=== PATIENT | male | born 1945 | race Caucasian/White ===

== ENCOUNTER 2019-04-17 10:26 | Emergency (ER) | payer MEDICARE ==
[~2019-04-17] VITALS: Ht 167.6 cm; Wt 101.2 kg
[~2019-04-17 10:26] MED LIST: ASPIR 8181 MG PO; ATORVASTATIN CA20 MG PO; CARBIDOPA-LEVO1 EACH PO; CITALOPRAM HBR20 MG PO; FUROSEMIDE40 MG PO; GLIMEPIRIDE2 MG PO; GLUCOPHAGE1000 MG PO; ISOSORBIDE MON120 MG PO; ISOSORBIDE MONO30 M1 PO; ISOSORBIDE MONO60 MG PO; LISINOPRIL PO; LISINOPRIL-HCT1 EACH PO; LYRICA100 MG PO; METOPROLOL SUCC50 MG PO; METOPROLOL TART25 MG PO; MOBIC7.5 MG PO; NEURONTIN100 MG PO; NITROGLYCERIN0.4 MG SL; NOVOLIN 70100 UNITS/ SQ; PLAVIX75 MG PO; RAMIPRIL10 MG PO; RANEXA500 MG PO; TRAZODONE HCL50 MG PO
--- OUTSIDE RECORDS SUMMARY | 2019-04-17 10:29 | XMS REPORT | Clinical Summary ---
Author Author [facility] Address Unknown Phone Unavailable Care Team Providers Care Medical Van Driver Name Role Phone Pcp, No PCP Unavailable Allergies No Known Allergies Medications End Date Status Medication Sig Dispensed Refills Start Date Active aspirin 81 MG chewable Take 81 mg by 0 tablet mouth daily. Active gabapentin (NEURONTIN) Take 600 mg 0 600 MG tablet by mouth 2 (two) times daily. Active sertraline (ZOLOFT) 25 MG Take 25 mg by 0 tablet mouth daily. Active atorvastatin (LIPITOR) 40 Take 40 mg by 0 MG tablet mouth daily. Active clopidogrel (PLAVIX) 75 Take 75 mg by 0 mg tablet mouth daily. Active furosemide (LASIX) 20 MG Take 20 mg by 0 tablet mouth 2 (two) times daily. Active amLODIPine (NORVASC) 5 MG Take 5 mg by 0 tablet mouth daily. Active metoprolol (TOPROL-XL) 50 Take 50 mg by 0 MG 24 hr tablet mouth 2 (two) times daily. Active isosorbide mononitrate Take 20 mg by 0 (ISMO,MONOKET) 20 MG mouth daily . tablet Active ranolazine (RANEXA) 500 Take 1,000 mg 0 MG 12 hr tablet by mouth 2 (two) times daily. Active glimepiride (AMARYL) 4 MG Take 4 mg by 0 tablet mouth every morning before breakfast. Active insulin 70/30, insulin Inject 0 NPH-insulin regular, subcutaneousl (HUMULIN 70/30) 100 y 2 (two) unit/mL (70-30) injection times daily before meals Takes 65 units in the am and 45 units in the pm . Active nitroglycerin (NITROSTAT) Place 0.4 mg 0 0.4 MG SL tablet under the tongue every 5 (five) minutes as needed for Chest pain Put 1 pill under tongue every 5min as needed for chest pain.No more than 3 doses in 15min.Call 911 if pain is unrelieved 5min after 1st dose . 09/30/2018 Discontinued metoprolol (TOPROL-XL) 25 Take 25 mg by 0 MG 24 hr tablet mouth daily. Active Problems Problem Noted Date Aortic stenosis 09/30/2018 CAD (coronary artery disease) 06/03/2018 Encounters Care Team Description Date Type Specialty Bobby Peguero MD L CATH & PCI 09/30/2018 Surgery Bobby Peguero MD Nonrheumatic aortic valve stenosis 09/30/2018 Hospital Encounter Bobby Peguero MD L CATH & CORONARY ANGIOS 06/03/2018 Surgery Bobby Peguero MD Coronary artery disease without angina pectoris, unspecified vessel or lesion type, unspecified whether [place] or transplanted heart 06/03/2018 Hospital Cardiology - Encounter 06/04/2018 06/03/2018 Orders Only General Internal Medicine after 04/16/2018 Social History Date Tobacco Use Types Packs/Day Years Used Never Smoker Smokeless Tobacco: Never Used Alcohol Use Drinks/Week oz/Week Comments No Sex Assigned at Date Recorded Not on file Industry Job Start Date Occupation Not on file Not on file Not on file Travel End Travel History Travel Start No recent travel history available. Last Filed Vital Signs Time Taken Vital Sign Reading 09/30/2018 3:30 PM TRAVEL REGISTERED NURSE PACU Blood Pressure 152/67 09/30/2018 3:30 PM TRAVEL REGISTERED NURSE PACU Pulse 67 09/30/2018 7:12 AM TRAVEL REGISTERED NURSE PACU Temperature 36.7 C (98.1 F) 09/30/2018 3:30 PM TRAVEL REGISTERED NURSE PACU Respiratory Rate 18 09/30/2018 1:00 PM TRAVEL REGISTERED NURSE PACU Oxygen Saturation 97% - Inhaled Oxygen - Concentration 09/30/2018 7:12 AM TRAVEL REGISTERED NURSE PACU Weight 104.5 kg (230 lb 6.4 oz) 09/30/2018 7:12 AM TRAVEL REGISTERED NURSE PACU Height 167.6 cm (5' 6") 09/30/2018 7:12 AM TRAVEL REGISTERED NURSE PACU Body Mass Index 37.19 Plan of Treatment Not on file Implants Device Identifier Shelf Expiration Date Model / Serial / Lot Implanted Type Area Manufactur er [id number] 02/20/2019 [id number] / / [id number] Device Clsr Angio-Seal Vip 6fr Cardiovasc N/A: Groin [employer] [id number] - [id number] ular MED:CARDIA Implanted: Qty: 1 on 06/03/2018 by Bobby Santos MD 06/22/2019 [id number] / [id number] / [id number] Device Clsr Angio-Seal Vip 6fr Cardiovasc [employer] [id number] - [id number] yanna MED:CARDIA Implanted: Qty: 1 on 09/30/2018 by Bobby Santos MD [id number] 04/05/2019 [id number] / / [id number] Promus Premier Stents-Cor N/A: Heart [place] Implanted: Qty: 1 on 06/03/2018 by Bobby Robert MD Procedures Comments Procedure Name Priority Date/Time Associated Diagnosis VASCULAR DIAGRAM -SCAN 01/07/2019 10:01 AM CDT VASCULAR DIAGRAM -SCAN 01/02/2019 5:11 AM CDT VASCULAR DIAGRAM -SCAN 11/13/2018 4:40 PM TRAVEL REGISTERED NURSE PACU REPORT OF PROCEDURE - 10/20/2018 ENDOSCOPY SCAN 10:00 AM TRAVEL REGISTERED NURSE PACU CARDIAC CATH REPORT - 10/20/2018 SCAN 10:00 AM TRAVEL REGISTERED NURSE PACU L CATH & PCI 09/30/2018 Angina pectoris (HCC) 1:01 PM TRAVEL REGISTERED NURSE PACU Case Notes (3) CASE POP6 mGy 2341. ECG 12-LEAD STAT 09/30/2018 8:44 AM TRAVEL REGISTERED NURSE PACU CBC W/PLT COUNT & AUTO STAT 09/30/2018 DIFFERENTIAL 8:20 AM TRAVEL REGISTERED NURSE PACU CBC W/PLT COUNT & AUTO STAT 09/30/2018 DIFFERENTIAL 8:20 AM TRAVEL REGISTERED NURSE PACU BASIC METABOLIC PANEL (7) STAT 09/30/2018 8:20 AM TRAVEL REGISTERED NURSE PACU RHYTHM STRIP - SCAN 06/05/2018 1:41 PM CDT REPORT OF PROCEDURE - 06/05/2018 ENDOSCOPY SCAN 1:41 PM CDT CARDIAC CATH REPORT - 06/05/2018 SCAN 1:41 PM CDT POCT-GLUCOSE METER Routine 06/04/2018 8:30 AM CDT CBC (HEMOGRAM ONLY) Routine 06/04/2018 4:14 AM CDT BASIC METABOLIC PANEL (7) Routine 06/04/2018 4:14 AM CDT POCT-GLUCOSE METER Routine 06/03/2018 10:18 PM CDT POCT-GLUCOSE METER Routine 06/03/2018 12:29 PM CDT POCT-ACT Routine 06/03/2018 10:16 AM CDT L CATH & CORONARY ANGIOS 06/03/2018 Angina pectoris (HCC) 9:32 AM CDT Coronary artery disease, angina presence unspecified, unspecified vessel or lesion type, unspecified whether [place] or transplanted heart Case Notes (2) CASE POP6 ECG 12-LEAD Routine 06/03/2018 7:33 AM CDT Procedure Note - Interface, External Ris In - 06/03/2018 7:47 AM CDT Ventricula r Rate 52 BPM Atrial Rate 52 BPM P-R Interval 198 ms QRS Duration 106 ms Q-T Interval 474 ms QTC Calculatio n(Bazett) 440 ms P [place] 53 degrees R [place] 34 degrees T [place] 51 degrees Sinus bradycardi a with marked sinus arrhythmia Otherwise normal ECG When compared with ECG of 1 08:37, Previous ECG has undetermin ed rhythm, needs review Criteria for Inferior infarct are no longer Present ECG 12-LEAD STAT 06/03/2018 7:33 AM CDT CBC W/PLT COUNT & AUTO STAT 06/03/2018 DIFFERENTIAL 6:46 AM CDT CBC W/PLT COUNT & AUTO STAT 06/03/2018 DIFFERENTIAL 6:46 AM CDT BASIC METABOLIC PANEL (7) STAT 06/03/2018 6:46 AM CDT after 04/16/2018 Results * VASCULAR DIAGRAM -SCAN (01/07/2019 10:01 AM CDT) Only the most recent of 3 results within the time period is included. Narrative Performed At * EKG-SCANNED (10/20/2018 10:00 AM TRAVEL REGISTERED NURSE PACU) Only the most recent of 2 results within the time period is included. Narrative Performed At * CARDIAC CATH REPORT - SCAN (10/20/2018 10:00 AM TRAVEL REGISTERED NURSE PACU) Narrative Performed At * ECG 12 lead (09/30/2018 8:44 AM TRAVEL REGISTERED NURSE PACU) Only the most recent of 2 results within the time period is included. Specimen Narrative Performed At Ventricular Rate 54 BPM GE MUSE Atrial Rate 54 BPM P-R Interval 194 ms QRS Duration 112 ms Q-T Interval 486 ms QTC Calculation(Bazett) 460 ms P [place] 58 degrees R [place] 40 degrees T [place] 45 degrees Sinus bradycardia Left atrial enlargement Prolonged QT Abnormal ECG No previous ECGs available Confirmed by MD Glaser Roberto ([id number]) on 09/30/2018 1:10:00 PM Procedure Note Interface, External Ris In - 09/30/2018 1:10 PM TRAVEL REGISTERED NURSE PACU Ventricular Rate 54 BPM Atrial Rate 54 BPM P-R Interval 194 ms QRS Duration 112 ms Q-T Interval 486 ms QTC Calculation(Bazett) 460 ms P [place] 58 degrees R [place] 40 degrees T [place] 45 degrees Sinus bradycardia Left atrial enlargement Prolonged QT Abnormal ECG No previous ECGs available Confirmed by MD Glaser Roberto ([id number]) on 09/30/2018 1:10:00 PM Performing Organization Address City/State/Zipcode Phone Number KRISSY MULLEN * CBC with platelet count + automated diff (09/30/2018 8:20 AM TRAVEL REGISTERED NURSE PACU) Only the most recent of 2 results within the time period is included. WBC 8.3 3.5 - 10.5 K/L [facility] RBC 4.06 (L) 4.63 - 6.08 M/L [facility] Hemoglobin 12.4 (L) 13.7 - 17.5 GM/DL [facility] Hematocrit 38.7 (L) 40.1 - 51.0 % [facility] MCV 95.3 (H) 79.0 - 92.[address] [facility] MCH 30.5 25.7 - 32.[address] [facility] MCHC 32.0 (L) 32.3 - 36.5 GM/DL [facility] RDW 12.6 11.6 - 14.4 % [facility] Platelets 181 150 - 450 K/CU MM [facility] MPV 11.4 9.4 - 12.[address] [facility] nRBC 0 0 - 0 /[address] [facility] % Neutros 70 % [facility] % Lymphs 21 % [facility] % Monos 7 % [facility] % Eos 2 % [facility] % Baso 1 % [facility] # Neutros 5.80 (H) 1.78 - 5.38 K/L [facility] # Lymphs 1.71 1.32 - 3.57 K/L [facility] # Monos 0.55 0.30 - 0.82 K/L [facility] # Eos 0.20 0.04 - 0.54 K/L [facility] # Baso 0.04 0.01 - 0.08 K/L [facility] Immature 0 0 - 1 % [facility] Granulocytes-[facility] Specimen Blood Performing Organization Address City/State/Zipcode Phone Number [facility] [address] [place] [address] MEDICAL CENTER * Basic metabolic panel (09/30/2018 8:20 AM TRAVEL REGISTERED NURSE PACU) Only the most recent of 3 results within the time period is included. Sodium 143 136 - 145 meq/L [facility] Potassium 4.2 3.5 - 5.1 meq/L [facility] Chloride 105 98 - 107 meq/L [facility] CO2 30 (H) 22 - 29 meq/L [facility] BUN 18 7 - 21 mg/dL [facility] Creatinine 0.97 0.57 - 1.25 mg/dL [facility] Glucose 85 70 - 105 mg/dL [facility] Calcium 9.3 8.4 - 10.2 mg/dL [facility] EGFR 76Comment: ESTIMATED GFR IS mL/min/1.73 sq m [facility] NOT ACCURATE CREATININE [facility] CLEARANCE IN PREDICTING GLOMERULAR FILTRATION RATE. ESTIMATED GFR IS NOT APPLICABLE FOR DIALYSIS PATIENTS. Specimen Blood Performing Organization Address City/[facility] Phone Number [address] [address] [facility] * RHYTHM STRIP - SCAN (06/05/2018 1:41 PM CDT) Narrative Performed At * CARDIAC CATH REPORT - SCAN (06/05/2018 1:41 PM CDT) Narrative Performed At * POC-Glucose meter (06/04/2018 8:30 AM CDT) Only the most recent of 3 results within the time period is included. POC-Glucose Meter 184 (H)Comment: TESTED AT 70 - 110 mg/dL [address] [address] Specimen Blood Performing Organization Address City/[facility] Phone Number [address] [address] [facility] * CBC (Hemogram only) (06/04/2018 4:14 AM CDT) WBC 8.5 3.5 - 10.5 K/L [facility] RBC 3.69 (L) 4.63 - 6.08 M/L [facility] Hemoglobin 11.1 (L) 13.7 - 17.5 GM/DL [facility] Hematocrit 35.4 (L) 40.1 - 51.0 % [facility] MCV 95.9 (H) 79.0 - 92.[address] [facility] MCH 30.1 25.7 - 32.[address] [facility] MCHC 31.4 (L) 32.3 - 36.5 GM/DL [facility] RDW 12.9 11.6 - 14.4 % [facility] Platelets 156 150 - 450 K/CU MM [facility] MPV 11.1 9.4 - 12.[address] [facility] nRBC 0 0 - 0 /[address] [facility] Specimen Blood Performing Organization Address City/[facility] Cent[facility]ode Phone Number [facility] [address] [place] [address] [phone] [facility] * POC ACTIVATED CLOTTING TIME (06/03/2018 10:16 AM CDT) Activated Clotting Time 401Comment: TESTED AT [facility] sec [address] [address] [facility] Specimen Blood Performing Organization Address City/[facility] Centercode Phone Number [facility] [address] [place] [address] [phone] [facility] after 04/16/2018 Insurance Payer Benefit Subscriber ID Type Phone Address Plan / Group AETNA - MEDICARE MGD CARE AETNA xxxxxxxx [facility] [phone] [address] [place] [address] [facility] POS Advance Directives For more information, please contact: [address] [address] Date Inactivated Comments Code Status Date Activated Full Code 09/30/2018 1:01 PM This code status was determined by: Patient 09/30/2018 1:01 PM Full Code 09/30/2018 7:26 AM This code status was determined by: Patient 06/03/2018 12:20 PM Full Code 06/03/2018 6:33 AM This code status was determined by: Patient
--- OUTSIDE RECORDS SUMMARY | 2019-04-17 10:32 | XMS REPORT ---
Author Author Justine Art [facility] eClinical[employer] Address Unknown Phone Unavailable Care Team Providers Care Manager Community Name Role Phone Justine Art CP Unavailable Allergies, Adverse Reactions, Alerts Substance Reaction Event Type N.K.D.A. 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 Active Assessment Poor memory R41.3 Active Problem Essential hypertension I10 Active Assessment Depression, unspecified depression type F32.9 Active Problem Depression, unspecified depression type F32.9 Active Problem Microalbuminuria R80.9 Active Problem Type 2 diabetes mellitus with diabetic peripheral angiopathy without gangrene E11.51 Active Problem Coronary artery disease involving [place] coronary artery of [place] heart with angina pectoris I25.119 Active Problem BMI 37.0-37.9, adult Z68.37 Active Assessment Essential hypertension I10 Active Assessment 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 Problem 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.29 Active Assessment S/P coronary artery stent placement Z95.5 Active Problem Sciatica, right M54.31 Active Problem Constipation, unspecified constipation type K59.00 Active Problem Tremor R25.1 Active Problem Poor memory R41.3 Active Problem 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 [id number] 145 Active TAKE 1 CAPSULE BY MOUTH EVERY DAY ProAir HFA [facility] [address]-83 108 (90 Base) MCG/ACT Inhalation every 4 hrs prn February 22, 2016 Active 2 puffs as needed Metformin HCl [facility] 78870189047 1000 MG Orally Twice a day Active 1 tablet with meals Lisinopril [facility] [address]-53 20 MG Orally Once a day December 31, 2015 Active 1 tablet Nitroglycerin [facility] [address]-73 0.4 MG Sublingual once a day prn Active 1 tablet ProAir HFA [facility] [address]-07 108 (90 Base) MCG/ACT Inhalation every 4 hrs March 21, 2017 Active 2 puffs as needed Toprol XL [facility] [address]-06 50 MG Orally Once a day November 27, 2016 Active 1 tablet Metoprolol Succinate ER [facility] [address]-76 25 MG Orally Once a day Active 1 tablet Atorvastatin Calcium [facility] [address]-73 40 mg Orally Once a day Active 1 tablet Ranexa [facility] [address]-88 500 MG Orally Twice a day Active 1 tablet Clopidogrel Bisulfate [facility] [address]-02 75 mg Orally Once a day Active 1 tablet Isosorbide Mononitrate [facility] [address]-30 120 MG Orally Once a day Active 1 tablet Aspir-81 [facility] [address]-98 81 MG Orally Once a day Active 1 tablet Zoloft [facility] [address]-17 25 MG Orally Once a day March 21, 2017 Active 1 tablet Furosemide [facility] [address]-79 40 MG Orally Once a day Active 1 tablet Carbidopa-Levodopa ER [facility] [address]-47 25-100 MG Orally twice a day (bid) Active 1 tablet Novolin 70/[address] [facility] [address]-67 (70-30) 100 UNIT/ML Subcutaneous 65 units am and 45 units pm December 23, 2015 Active as directed Glimepiride [facility] [address]-50 2 MG Orally Once a day Aug 27, 2016 Active 1 tablet with breakfast or the first main meal of the day Gabapentin [facility] [id number] 300 MG Active 3 CAPSULE THREE TIMES A DAY ORALLY 30 DAYS Vital Signs Date/Time: May 03, 2017 BMI 36.47 Index Weight 226 lbs Height 66 in Cardiac Monitoring Heart Rate 70 /min Blood Pressure Diastolic 58 mm Hg Blood Pressure Systolic 114 mm Hg Results No Known Results Summary Purpose eClinicalWorks Submission
--- OUTSIDE RECORDS SUMMARY | 2019-04-17 10:32 | XMS REPORT ---
Author Author Katt Pizarro [facility] eClinicalWorks Address Unknown Phone Unavailable Care Team Providers Care Catalyst Manufacturing Operator Name Role Phone Katt Pizarro Unavailable Allergies, Adverse Reactions, Alerts Substance Reaction Event Type N.K.D.A. 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 Active Assessment SOB (shortness of breath) R06.02 Active Problem Essential hypertension I10 Active Assessment Acute pancreatitis without infection or necrosis, unspecified pancreatitis type K85.90 Active Problem Depression, unspecified depression type F32.9 Active Problem Microalbuminuria R80.9 Active Problem Type 2 diabetes mellitus with diabetic peripheral angiopathy without gangrene E11.51 Active Problem Coronary artery disease involving [place] coronary artery of [place] heart with angina pectoris I25.119 Active Problem BMI 37.0-37.9, adult Z68.37 Active Assessment Hospital discharge follow-up Z09 Active Assessment Depression, unspecified depression type F32.9 Active Problem 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.29 Active Assessment Acute kidney injury N17.9 Active Problem Sciatica, right M54.31 Active Problem Constipation, unspecified constipation type K59.00 Active Problem Tremor R25.1 Active Problem Poor memory R41.3 Active Problem 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 Problem PVD (peripheral vascular disease) I73.9 Active Problem History of [place] (myocardial infarction) I25.2 Active Problem Mixed hyperlipidemia E78.2 Active Problem S/P coronary artery stent placement Z95.5 Active Problem 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 Problem Non morbid obesity due to excess calories E66.09 Active Problem BMI 36.0-36.9,adult Z68.36 Active Medications Medication Code System Code Instructions Start Date End Date Status Dosage Novolin 70/30 [facility] [address]-12 (70-30) 100 UNIT/ML Subcutaneous 65 units am and 45 units pm December 23, 2015 Active as directed Metformin HCl ND 35085716058 1000 MG Orally Twice a day Active 1 tablet with meals Isosorbide Mononitrate [facility] [address]-86 120 MG Orally Once a day Active 1 tablet Carbidopa-Levodopa ER [facility] [address]-83 25-100 MG Orally twice a day (bid) Active 1 tablet Lisinopril [facility] [address]-71 20 MG Orally Once a day December 31, 2015 Active 1 tablet Glimepiride [facility] [address]-54 2 MG Orally Once a day Aug 27, 2016 Active 1 tablet with breakfast or the first main meal of the day ProAir HFA [facility] [address]-24 108 (90 Base) MCG/ACT Inhalation every 4 hrs March 21, 2017 Active 2 puffs as needed Furosemide [facility] [address]-69 40 MG Orally Once a day Active 1 tablet Linzess [facility] 07565336442 145 Active TAKE 1 CAPSULE BY MOUTH EVERY DAY Ranexa [facility] [address]-14 500 MG Orally Twice a day Active 1 tablet Atorvastatin Calcium [facility] [address]-58 40 mg Orally Once a day Active 1 tablet Nitroglycerin [facility] [address]-95 0.4 MG Sublingual once a day prn Active 1 tablet Aspir-81 [facility] [address]-17 81 MG Orally Once a day Active 1 tablet ProAir HFA [facility] [address]-83 108 (90 Base) MCG/ACT Inhalation every 4 hrs prn February 22, 2016 Active 2 puffs as needed Toprol XL [facility] [address]-27 50 MG Orally Once a day November 27, 2016 Active 1 tablet Zoloft [facility] [address]-58 25 MG Orally Once a day March 21, 2017 Active 1 tablet Metoprolol Succinate ER [facility] [address]-36 25 MG Orally Once a day Active 1 tablet Clopidogrel Bisulfate [facility] [address]-15 75 mg Orally Once a day Active 1 tablet Gabapentin [facility] 05011111466 300 MG Active 3 CAPSULE THREE TIMES A DAY ORALLY 30 DAYS Vital Signs Date/Time: March 21, 2017 BMI 36.80 Index Weight 228 lbs Height 66 in Cardiac Monitoring Heart Rate 68 /min Blood Pressure Diastolic 72 mm Hg Blood Pressure Systolic 134 mm Hg Results Name Result Date Reference Range Unit Abnormality Flag COMPREHENSIVE METABOLIC PANEL ----CALCIUM 8.9 [id number] 8.6-10.3 mg/dL N ----CARBON DIOXIDE 31 94298790 20-31 mmol/L N ----ALT 12 77313337 9-46 U/L N ----CREATININE 1.04 [id number] 0.70-1.18 mg/dL N ----AST 14 [id number] 10-35 U/L N ----eGFR NON-AFR. AZERBAIJANI 72 [id number] > OR=60 mL/min/1.73m2 N ----ALKALINE PHOSPHATASE 77 36203453 40-115 U/L N ----eGFR 84 [id number] > OR=60 mL/min/1.73m2 N ----BILIRUBIN, TOTAL 0.3 12781635 0.2-1.2 mg/dL N ----BUN/CREATININE RATIO NOT APPLICABLE 23601572 6-22 (calc) ----ALBUMIN/GLOBULIN RATIO 1.4 75980300 1.0-2.5 (calc) N ----SODIUM 145 05051395 135-146 mmol/L N ----GLOBULIN 2.7 56992907 1.9-3.7 g/dL (calc) N ----POTASSIUM 4.5 42106677 3.5-5.3 mmol/L N ----GLUCOSE 70 56567853 65-99 mg/dL N ----CHLORIDE 106 25710281 98-110 mmol/L N ----ALBUMIN 3.8 87702566 3.6-5.1 g/dL N ----UREA NITROGEN (BUN) 17 94570220 7-25 mg/dL N ----PROTEIN, TOTAL 6.5 54601884 6.1-8.1 g/dL N CBC (INCLUDES DIFF/PLT) ----ABSOLUTE BASOPHILS 45 75625431 0-200 cells/uL N ----ABSOLUTE EOSINOPHILS 107 37366052 15-500 cells/uL N ----LYMPHOCYTES 20.1 80227665 % N ----NEUTROPHILS 73.8 38475378 % N ----PLATELET COUNT 188 61934541 140-400 Thousand/uL N ----EOSINOPHILS 1.2 48782381 % N ----RDW 13.9 37232788 11.0-15.0 % N ----MONOCYTES 4.4 62140582 % N ----MCHC 33.8 89523333 32.0-36.0 g/dL N ----MCH 31.0 09958518 27.0-33.0 pg N ----MCV 91.6 28492724 80.0-100.0 fL N ----ABSOLUTE NEUTROPHILS 6568 02460931 9825-2691 cells/uL N ----MPV 10.4 72489500 7.5-12.5 fL N ----ABSOLUTE MONOCYTES 392 80975858 200-950 cells/uL N ----ABSOLUTE LYMPHOCYTES 1789 95494176 850-3900 cells/uL N ----BASOPHILS 0.5 20130447 % N ----WHITE BLOOD CELL COUNT 8.9 10558435 3.8-10.8 Thousand/uL N ----RED BLOOD CELL COUNT 3.37 84511332 4.20-5.80 Million/uL L ----HEMOGLOBIN 10.5 55030573 13.2-17.1 g/dL L ----HEMATOCRIT 30.9 30146612 38.5-50.0 % L LIPASE ----LIPASE 60 75521737 7-60 U/L N Summary Purpose eClinicalWorks Submission
--- OUTSIDE RECORDS SUMMARY | 2019-04-17 10:32 | XMS REPORT ---
Author Author Meenakshi Chaidez Organization eClinicalWorks Address Unknown Phone Unavailable Care Team Providers Care Chemic Mangler Name Role Phone Meenakshi Chaidez CP Unavailable Allergies No Known Allergies Problems Problem Type Condition Code Onset Dates Condition Status Problem Depression, unspecified depression type F32.9 Active Problem Microalbuminuria R80.9 Active Problem Type 2 diabetes mellitus with diabetic peripheral angiopathy without gangrene E11.51 Active Problem Coronary artery disease involving [place] coronary artery of [place] heart with angina pectoris I25.119 Active Problem BMI 37.0-37.9, adult Z68.37 Active Problem 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.29 Active Problem Sciatica, right M54.31 Active Problem Constipation, unspecified constipation type K59.00 Active Problem Tremor R25.1 Active Problem Poor memory R41.3 Active Problem 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 Problem PVD (peripheral vascular disease) I73.9 Active Problem History of [place] (myocardial infarction) I25.2 Active Problem Mixed hyperlipidemia E78.2 Active Problem S/P coronary artery stent placement Z95.5 Active Problem 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 Problem Non morbid obesity due to excess calories E66.09 Active Problem 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
--- OUTSIDE RECORDS SUMMARY | 2019-04-17 10:32 | XMS REPORT ---
Author Author Justine Art [facility] eClinicalWorks Address Unknown Phone Unavailable Care Team Providers Care Jig Builder Helper Name Role Phone Justine Art CP Unavailable Allergies, Adverse Reactions, Alerts Substance Reaction Event Type N.K.D.A. Info Not Available Non Drug Allergy Problems Problem Type Condition Code Onset Dates Condition Status Assessment CAD (coronary artery disease) I25.10 Active Assessment Depression, unspecified depression type F32.9 Active Assessment History of recent fall Z91.81 Active Assessment Risk for falls Z91.81 Active Assessment Tremor R25.1 Active Assessment Parkinsons G20 Active Assessment Cerebral palsy, unspecified type G80.9 Active Assessment Mixed hyperlipidemia E78.2 Active Assessment 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 Problem Depression, unspecified depression type F32.9 Active Assessment Essential hypertension I10 Active Problem Constipation, unspecified constipation type K59.00 Active Problem History of [place] (myocardial infarction) I25.2 Active Problem Sciatica, right M54.31 Active Problem Tremor R25.1 Active Problem BMI 37.0-37.9, adult Z68.37 Active Problem CAD (coronary artery disease) I25.10 Active Problem Risk for falls Z91.81 Active Problem Essential hypertension I10 Active Problem S/P coronary artery stent placement Z95.5 Active Problem Parkinsons G20 Active Problem 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 Problem 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 Active Problem 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.29 Active Problem Cerebral palsy, unspecified type G80.9 Active Problem Poor memory R41.3 Active Problem 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 Active Problem Mixed hyperlipidemia E78.2 Active Problem BMI 36.0-36.9,adult Z68.36 Active Problem PVD (peripheral vascular disease) I73.9 Active Problem Type 2 diabetes mellitus with diabetic peripheral angiopathy without gangrene E11.51 Active Problem Microalbuminuria R80.9 Active Problem 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 Problem Non morbid obesity due to excess calories E66.09 Active Medications Medication Code System Code Instructions Start Date End Date Status Dosage Toprol XL [facility] 18708988985 50 mg Orally Once in am November 27, 2016 Active [address] [facility] 04772116496 40 MG Orally Once a day Active 1 tablet ProAir HFA [facility] 89315265855 108 (90 Base) MCG/ACT Inhalation every 4 hrs March 21, 2017 Active 2 puffs as needed Ranexa [facility] 53239955696 500 MG Orally Twice a day Active 1 tablet Aspir-[address] [facility] 20432403830 81 MG Orally Once a day Active 1 tablet Metformin HCl [facility] 44051686948 1000 MG Active 1 TABLET WITH MEALS TWICE A DAY ORALLY 90 DAYS Clopidogrel Bisulfate [facility] 66480306701 75 mg Orally Once a day Active [address] [facility] 59706984391 300 MG Active 3 CAPSULE THREE TIMES A DAY ORALLY 30 DAYS ProAir HFA [facility] 99760007949 108 (90 Base) MCG/ACT Inhalation every 4 hrs prn February 22, 2016 Active 2 puffs as needed Glimepiride [facility] 01472341914 2 MG Active 1 TABLET WITH BREAKFAST OR THE FIRST MAIN MEAL OF THE DAY ONCE A DAY ORALLY [address] [facility] 50423607670 25 MG Orally Once a day March 21, 2017 Active 1 tablet Novolin 70/[address] [facility] 77246631235 (70-30) 100 UNIT/ML Subcutaneous 65 units am and 45 units pm December 23, 2015 Active as directed Metoprolol Succinate ER [facility] 25427714338 25 MG Orally qhs Active 1 tablet Carbidopa-Levodopa ER [facility] 44134053991 25-100 MG Orally twice a day (bid) Active [address] [facility] 89715408936 20 MG Orally Once a day December 31, 2015 Active [address] [facility] 44695376062 0.4 MG Sublingual once a day prn Active 1 tablet Isosorbide Mononitrate [facility] 34653154039 120 MG Orally Once a day Active 1 tablet Atorvastatin Calcium [facility] 65433398909 40 mg Orally Once a day Active 1 tablet Vital Signs Date/Time: Aug 05, 2017 BMI 36.63 Index Weight 227 lbs Height 66 in Cardiac Monitoring Heart Rate 68 /min Blood Pressure Diastolic 62 mm Hg Blood Pressure Systolic 130 mm Hg Results No Known Results Summary Purpose eClinicalWorks Submission
--- OUTSIDE RECORDS SUMMARY | 2019-04-17 10:32 | XMS REPORT ---
Author Author Justine Art [facility] eClinicalWorks Address Unknown Phone Unavailable Care Team Providers Care Gunnery/Ordnance Officer Name Role Phone Justine Art CP Unavailable Allergies, Adverse Reactions, Alerts Substance Reaction Event Type N.K.D.A. 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 Active Assessment 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 Problem BMI 37.0-37.9, adult Z68.37 Active Problem 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.29 Active Problem Sciatica, right M54.31 Active Problem Constipation, unspecified constipation type K59.00 Active Problem Tremor R25.1 Active Problem Poor memory R41.3 Active Problem 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 Problem PVD (peripheral vascular disease) I73.9 Active Problem History of [place] (myocardial infarction) I25.2 Active Problem Mixed hyperlipidemia E78.2 Active Problem S/P coronary artery stent placement Z95.5 Active Problem 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 Problem Non morbid obesity due to excess calories E66.09 Active Problem 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 Active Problem BMI 36.0-36.9,adult Z68.36 Active Problem Essential hypertension I10 Active Medications Medication Code System Code Instructions Start Date End Date Status Dosage Clopidogrel Bisulfate [facility] [address]-55 75 mg Orally Once a day Active 1 tablet Glimepiride [facility] [address]-19 2 MG Orally Once a day Aug 27, 2016 Active 1 tablet with breakfast or the first main meal of the day Zoloft [facility] [address]-33 25 MG Orally Once a day March 21, 2017 Active 1 tablet Lisinopril [facility] [address]-82 20 MG Orally Once a day December 31, 2015 Active 1 tablet ProAir HFA [facility] [address]-18 108 (90 Base) MCG/ACT Inhalation every 4 hrs prn February 22, 2016 Active 2 puffs as needed ProAir HFA [facility] [address]-01 108 (90 Base) MCG/ACT Inhalation every 4 hrs March 21, 2017 Active 2 puffs as needed Metformin HCl [facility] 41976592354 1000 MG Orally Twice a day Active 1 tablet with meals Ranexa [facility] [address]-74 500 MG Orally Twice a day Active 1 tablet Carbidopa-Levodopa ER [facility] [address]-38 25-100 MG Orally twice a day (bid) Active 1 tablet Nitroglycerin [facility] [address]-74 0.4 MG Sublingual once a day prn Active 1 tablet Gabapentin [facility] 59861442682 300 MG Active 3 CAPSULE THREE TIMES A DAY ORALLY 30 DAYS -81 [facility] [address]-70 81 MG Orally Once a day Active 1 tablet Novolin 70/30 [facility] [address]-57 (70-30) 100 UNIT/ML Subcutaneous 65 units am and 45 units pm December 23, 2015 Active as directed Toprol XL [facility] [address]-36 50 MG Orally Once a day November 27, 2016 Active 1 tablet Atorvastatin Calcium [facility] [address]-98 40 mg Orally Once a day Active 1 tablet Metoprolol Succinate ER [facility] [address]-99 25 MG Orally Once a day Active 1 tablet Isosorbide Mononitrate [facility] [address]-73 120 MG Orally Once a day Active 1 tablet Furosemide [facility] [address]-09 40 MG Orally Once a day Active 1 tablet Results No Known Results Summary Purpose eClinicalWorks Submission
--- OUTSIDE RECORDS SUMMARY | 2019-04-17 10:32 | XMS REPORT ---
Author Author Katt Pizarro [facility] eClinicalWorks Address Unknown Phone Unavailable Care Team Providers Care Salesperson Books Name Role Phone Katt Pizarro Unavailable Allergies, Adverse Reactions, Alerts Substance Reaction Event Type N.K.D.A. 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 Active Assessment Nausea and vomiting in adult R11.2 Active Problem BMI 37.0-37.9, adult Z68.37 Active Problem 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.29 Active Problem Sciatica, right M54.31 Active Problem Constipation, unspecified constipation type K59.00 Active Problem Tremor R25.1 Active Problem Poor memory R41.3 Active Problem 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 Problem PVD (peripheral vascular disease) I73.9 Active Problem History of [place] (myocardial infarction) I25.2 Active Problem Mixed hyperlipidemia [...] Instructions Start Date End Date Status Dosage Isosorbide Mononitrate [facility] [address]-44 120 MG Orally Once a day Active 1 tablet Nitroglycerin [facility] [address]-53 0.4 MG Sublingual once a day prn Active 1 tablet Aspir-81 [facility] [address]-10 81 MG Orally Once a day Active 1 tablet Atorvastatin Calcium [facility] [address]-82 40 mg Orally Once a day Active 1 tablet ProAir HFA [facility] [address]-41 108 (90 Base) MCG/ACT Inhalation every 4 hrs prn February 22, 2016 Active 2 puffs as needed Furosemide [facility] [address]-90 40 MG Orally Once a day Active 1 tablet Linzess [facility] 47431088564 145 Active TAKE 1 CAPSULE BY MOUTH EVERY DAY Glimepiride [facility] [address]-86 2 MG Orally Once a day Aug 27, 2016 Active 1 tablet with breakfast or the first main meal of the day Carbidopa-Levodopa ER [facility] [address]-30 25-100 MG Orally twice a day (bid) Active 1 tablet Ranexa [facility] [address]-38 500 MG Orally Twice a day Active 1 tablet Metoprolol Succinate ER [facility] [address]-29 25 MG Orally Once a day Active 1 tablet Metformin HCl [facility] 39163153560 1000 MG Orally Twice a day Active 1 tablet with meals Lisinopril [facility] [address]-55 20 MG Orally Once a day December 31, 2015 Active 1 tablet Novolin 70/30 [facility] [address]-61 (70-30) 100 UNIT/ML Subcutaneous 65 units am and 45 units pm December 23, 2015 Active as directed Clopidogrel Bisulfate [facility] [address]-65 75 mg Orally Once a day Active 1 tablet Gabapentin [facility] 76421224272 300 MG Active 3 CAPSULE THREE TIMES A DAY ORALLY 30 DAYS Toprol XL [facility] [address]-90 50 MG Orally Once a day November 27, 2016 Active 1 tablet Vital Signs Date/Time: March 14, 2017 Blood Pressure Systolic 102 mm Hg Weight wc lbs Height 66 in Temperature 98.1 F Cardiac Monitoring Heart Rate 90 /min Blood Pressure Diastolic 64 mm Hg Results No Known Results Summary Purpose eClinicalWorks Submission
--- OUTSIDE RECORDS SUMMARY | 2019-04-17 10:32 | XMS REPORT ---
Author Author Katt Pizarro [facility] eClinicalWorks Address Unknown Phone Unavailable Care Team Providers Care 3D Modeler Name Role Phone Katt Pizarro Unavailable Allergies, Adverse Reactions, Alerts Substance Reaction Event Type N.K.D.A. 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 Active Problem Essential hypertension I10 Active Assessment 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.29 Active Problem Depression, unspecified depression type F32.9 Active Problem Microalbuminuria R80.9 Active Problem Type 2 diabetes mellitus with diabetic peripheral angiopathy without gangrene E11.51 Active Problem 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 Active Problem BMI 37.0-37.9, adult Z68.37 Active Assessment Hospital discharge follow-up Z09 Active Assessment Depression, unspecified depression type F32.9 Active Problem 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.29 Active Assessment Essential hypertension I10 Active Problem Sciatica, right M54.31 Active Problem Constipation, unspecified constipation type K59.00 Active Problem Tremor R25.1 Active Problem Poor memory R41.3 Active Problem 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 [address]-62 50 MG Orally Once a day November 27, 2016 Active 1 tablet Gabapentin [facility] 19020594568 300 MG Active 3 CAPSULE THREE TIMES A DAY ORALLY 30 DAYS Metoprolol Succinate ER [facility] [address]-73 25 MG Orally Once a day Active 1 tablet Atorvastatin Calcium [facility] [address]-49 40 mg Orally Once a day Active 1 tablet ProAir HFA [facility] [place] [address]-06 108 (90 Base) MCG/ACT Inhalation every 4 hrs prn February 22, 2016 Active 2 puffs as needed Furosemide [facility] [place] [address]-10 40 MG Orally Once a day Active 1 tablet Glimepiride [facility] [address]-62 2 MG Orally Once a day Aug 27, 2016 Active 1 tablet with breakfast or the first main meal of the day Metformin HCl [facility] 10221802177 1000 MG Orally Twice a day Active 1 tablet with meals Aspir-[address] [facility] [address]-59 81 MG Orally Once a day Active 1 tablet Carbidopa-Levodopa ER [facility] [place] [address]-50 25-100 MG Orally twice a day (bid) Active 1 tablet Clopidogrel Bisulfate [facility] [place] [address]-97 75 mg Orally Once a day Active 1 tablet Isosorbide Mononitrate [facility] [place] [address]-97 120 MG Orally Once a day Active 1 tablet Lisinopril [facility] [place] [address]-35 20 MG Orally Once a day December 31, 2015 Active 1 tablet Ranexa [facility] [address]-70 500 MG Orally Twice a day Active 1 tablet Linzess [facility] 57551274253 145 Active TAKE 1 CAPSULE BY MOUTH EVERY DAY Nitroglycerin [facility] [address]-38 0.4 MG Sublingual once a day prn Active 1 tablet Novolin 70/[address] [facility] [place] [address]-71 (70-30) 100 UNIT/ML Subcutaneous 65 units am and 45 units pm December 23, 2015 Active as directed Vital Signs Date/Time: February 12, 2017 BMI 36.80 Index Weight 228 lbs Height 66 in Cardiac Monitoring Heart Rate 68 /min Blood Pressure Diastolic 70 mm Hg Blood Pressure Systolic 138 mm Hg Results No Known Results Summary Purpose eClinicalWorks Submission
--- OUTSIDE RECORDS SUMMARY | 2019-04-17 10:32 | XMS REPORT | Continuity of Care Document ---
Author Author [employer] Organization [employer] Address Unknown Phone Unavailable Care Team Providers Care Manager Financial Name Role Phone [employer] Unavailable Unavailable Problems Problem Status Onset Date Classification Date Reported Comments Source Occlusion and stenosis of bilateral carotid arteries 12/13/2017 03/15/2018 [facility] CAROTID STENOSIS I65.29 Active 12/04/2017 [facility] VOMITING/NAUSEA Active 03/14/2017 [facility] GASTROENTERITIS, DEHYDRATION Active 03/14/2017 [facility] CHEST PAIN Active 02/04/2017 [facility] BERNARDO (ACUTE KIDNEY INJURY), CHEST PAIN Active 02/04/2017 [facility] DX: [id number] DISEASE Active 07/04/2016 [facility] AORTIC STENOSIS Q25.3 Active 06/04/2016 [facility] AORTIC STENOSIS; I35.0; I25.10; R07.9 Active 01/06/2016 [facility] NSTEMI Active 11/10/2015 [facility] Secondary, uncontrolled diabetes mellitus without mention of complication Active 12/01/2008 Problem 03/15/2018 [facility] Poor memory Active Problem 04/16/2019 [facility] Mixed hyperlipidemia Active Problem 04/16/2019 [facility] Acute renal failure, unspecified acute renal failure type Active Diagnosis 02/14/2017 [facility] 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 Active Problem 04/16/2019 [facility] 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 Active Problem 04/16/2019 [facility] Essential hypertension Active Problem 04/16/2019 [facility] Type 2 diabetes mellitus with other diabetic kidney complication Active Problem 04/16/2019 [facility] Depression, unspecified depression type Active Problem 04/16/2019 [facility] Microalbuminuria Active Problem 04/16/2019 [facility] Type 2 diabetes mellitus with diabetic peripheral angiopathy without gangrene Active Problem 04/16/2019 [facility] BMI 37.0-37.9, adult Active Problem 04/16/2019 [facility] Hospital discharge follow-up Active Diagnosis 03/26/2017 [facility] Sciatica, right Active Problem 04/16/2019 [facility] Constipation, unspecified constipation type Active Problem 04/16/2019 [facility] Tremor Active Problem 04/16/2019 [facility] Right-sided hemiplegic cerebral palsy Active Problem 04/16/2019 [facility] PVD Active Problem 04/16/2019 [facility] History of ME Active Problem 04/16/2019 [facility] S/P coronary artery stent placement Active Problem 04/16/2019 [facility] Type 2 diabetes mellitus with diabetic polyneuropathy Active Problem 04/16/2019 [facility] Non morbid obesity due to excess calories Active Problem 04/16/2019 [facility] BMI 36.0-36.9,adult Active Problem 04/16/2019 [facility] CAD Active Problem 07/05/2018 [facility] History of recent fall Active Diagnosis 08/08/2017 [facility] Risk for falls Active Problem 04/16/2019 [facility] Parkinsons Active Problem 04/16/2019 [facility] Cerebral palsy, unspecified type Active Problem 04/09/2018 [facility] Screening for prostate cancer Active Diagnosis 12/10/2018 [facility] Routine physical examination Active Diagnosis 12/13/2016 [facility] Nausea and vomiting in adult Active Diagnosis 03/19/2017 [facility] SOB Active Diagnosis 05/22/2018 [facility] Acute pancreatitis without infection or necrosis, unspecified pancreatitis type Active Diagnosis 03/26/2017 [facility] Acute kidney injury Active Diagnosis 03/26/2017 [facility] Insulin long-term use Active Problem 04/16/2019 [facility] Poor balance Active Problem 04/16/2019 [facility] Gait abnormality Active Problem 04/16/2019 [facility] Frequent falls Active Problem 04/16/2019 [facility] Type 2 diabetes mellitus with hyperglycemia Active Problem 04/16/2019 [facility] Tinnitus of both ears Active Problem 04/16/2019 [facility] Encounter to discuss test results Active Diagnosis 10/19/2017 [facility] Right leg weakness Active Diagnosis 10/17/2017 [facility] Type 2 diabetes mellitus without complication, without long-term current use of insulin Active Problem 04/09/2018 [facility] Anemia, unspecified type Active Diagnosis 04/06/2018 [facility] Myalgia Active Diagnosis 04/06/2018 [facility] Chest pain, unspecified type Active Diagnosis 05/22/2018 [facility] Dizziness Active Diagnosis 07/25/2018 [facility] Acute left-sided low back pain with left-sided sciatica Active Diagnosis 04/16/2019 [facility] Screening for colon cancer Active Diagnosis 12/10/2018 [facility] Encntr for general adult medical exam w/o abnormal findings Active Diagnosis 12/10/2018 [facility] Atherosclerotic cardiovascular disease Active Problem 04/05/2016 [facility] Chest pain Active Diagnosis 12/24/2015 [facility] Heart attack Active Diagnosis 12/24/2015 [facility] Abdominal distension Active Diagnosis 05/11/2016 [facility] Bloating Active Diagnosis 05/11/2016 [facility] Asthmatic bronchitis Active Diagnosis 02/24/2016 [facility] Encounter for immunization Active Diagnosis 08/17/2016 [facility] [D]Chest pain Active Problem 03/15/2018 [facility] Arthritis Active Problem 03/15/2018 [facility] CAD - Coronary artery disease Active Problem 03/15/2018 [facility] Cerebral palsy Active Problem 03/15/2018 [facility] Chronic pain Active Problem 03/15/2018 [facility] Diabetes mellitus Active Problem 03/15/2018 [facility] ROBINSON - Hard of hearing Active Problem 03/15/2018 [facility] Hypertension Active Problem 03/15/2018 [facility] Incontinence of urine Active Problem 03/15/2018 [facility] Neuropathy Active Problem 03/15/2018 [facility] Swelling of ankle joint1 Active Problem 03/15/2018 Occasional swelling around both ankles [facility] Chest pain Resolved Problem 03/15/[address] [facility] [address] ELEVATION (STEMI) MYOCARDIAL INFARCTI Active [facility] SUPRAVALVULAR AORTIC STENOSIS Active [facility] PARKINSON'S DISEASE Active [facility] ACUTE KIDNEY FAILURE, UNSPECIFIED Active [facility] CHEST PAIN, UNSPECIFIED Active [facility] NONINFECTIVE GASTROENTERITIS AND COLITIS Active [facility] DEHYDRATION Active [facility] Medications Medication Details Route Status Patient Instructions Ordering Provider Order Date Source Rosuvastatin Calcium 1 tablet Orally Active 40 mg Orally Once a day [place] 08/08/2018 [facility] Ass FreeStyle Sudeep Sensor System as directed NA Active - apply every 3-5 days (DX E11.65) [place] 07/24/2018 [facility] Ass FreeStyle Sudeep Ruffin as directed NA Active - read sensor as often as TID (DX E11.65) [place] 07/24/2018 [facility] Glimepiride 1 tablet with breakfast or the first main meal of the day by mouth Active 4 mg by mouth with dinner [place] 04/08/2018 [facility] Novolin 70/30 PenFill as directed Subcutaneous Active (70-30) 100 UNIT/ML Subcutaneous 65 units in am, 55 units at night [place] 03/19/2018 [facility] Humalog Mix 75/25 Pen 65 UNITS AM AND 45 UNITS PM subcutaneously Active (75-25) 100 UNIT/ML subcutaneously daily [place] 03/17/2018 [facility] Gabapentin 1 tablet by mouth Active 600 MG by mouth twice a day (bid) [place] 03/06/2018 [facility] Visipaque 100 mL, 0 ml/hr, Route: IV, Drug Form: KASI CARRILLO, Start date: 12/07/17 12:00:00 CDT, Duration: 1 doses or timesNotes: (Same as: Visipaque). WASTE: F/P - Black; E - Municipal Trash Bin Active 12/07/2017 [facility] Meclizine HCl 1 tablet as needed Orally Active 25 MG Orally Once a day [place] 10/15/2017 [facility] UltiCare Insulin Syringe as directed subcutaneously Active 29G X 1/2 subcutaneously as directed 65 units am and 45 units pm [place] 09/30/2017 [facility] OneTouch Lancets as directed in vitro Active - in vitro use tid dx: E11.65, Z79.4 [place] 09/09/2017 [facility] NovoFine as directed intramuscularly Active 32G X 6 MM intramuscularly use bid dx: E11.65, Z79.4 [place] 09/09/2017 [facility] One Touch/One Touch II Starter as directed In Vitro Active - In Vitro use tid dx: E11.65, Z79.4 [place] 09/09/2017 [facility] OneTouch Test as directed In Vitro Active - In Vitro use tid dx: E11.65, Z79.4 [place] 09/09/2017 [facility] ProAir HFA 2 puffs as needed Inhalation Active 108 (90 Base) MCG/ACT Inhalation every 4 hrs [facility] 03/21/2017 [facility] Zoloft 1 tablet Orally Active 25 MG Orally Once a day [facility] 03/21/2017 [facility] ProAir HFA 2 puffs as needed Inhalation Active 108 (90 Base) MCG/ACT Inhalation every 4 hrs [facility] 03/21/2017 [facility] Zoloft 1 tablet Orally Active 25 MG Orally Once a day [facility] 03/21/2017 [facility] Alprazolam 0.25 MG Oral Tablet [Xanax] 0.25 mg, 1 tab, Route: PO, Drug form: TAB, BID, Dosing Weight 100, kg, PRN as needed for anxiety, Start date: 03/16/17 21:25:00 CDT, Duration: 30 day, Stop date: 04/15/17 21:24:00 CDTNotes: With food or milk (Same as: Xanax) No Longer Active 03/17/2017 [facility] 24 HR Metoprolol Tartrate 50 MG Extended Release Tablet [Toprol] 50 mg, 1 tab, Route: PO, Drug form: ERTAB, Daily, Start date: 03/16/17 9:00:00 CDT, Duration: 30 day, Stop date: 04/14/17 9:00:00 CDTNotes: (Same as: Toprol XL) May split tab, but do not crush. No Longer Active 03/16/2017 [facility] clopidogrel 75 mg, 1 tab, Route: PO, Drug form: TAB, Daily, Dosing Weight 100, kg, Start date: 03/16/17 9:00:00 CDT, Duration: 30 day, Stop date: 04/14/17 9:00:00 CDTNotes: (Same As: Plavix) No Longer Active 03/16/2017 [facility] Isosorbide 120 mg, 4 tab, Route: PO, Drug form: ERTAB, QAM, Dosing Weight 100, kg, Start date: 03/16/17 9:00:00 CDT, Duration: 30 day, Stop date: 04/14/17 9:00:00 CDTNotes: (Same as:Imdur) "Do Not Crush" Take on empty stomach/ full glass of water. Do not crush No Longer Active 03/16/2017 [facility] Isosorbide Dinitrate 90 mg, Route: PO, Drug form: TAB, Daily, Dosing Weight 100, kg, Start date: 03/16/17 9:00:00 CDT, Duration: 30 day, Stop date: 04/14/17 9:00:00 CDT No Longer Active 03/16/2017 [facility] atorvastatin 40 mg, 1 tab, Route: PO, Drug form: TAB, Bedtime, Dosing Weight 100, kg, Start date: 03/15/17 21:00:00 CDT, Duration: 30 day, Stop date: 04/13/17 21:00:00 CDTNotes: (Same as: Lipitor) No Longer Active 03/16/2017 [facility] Sodium Bicarbonate 325 MG Oral Tablet 1,300 mg, 2 tab, Route: PO, Drug form: TAB, BID, Dosing Weight 100, kg, Start date: 03/15/17 17:00:00 CDT, Duration: 30 day, Stop date: 04/14/17 9:00:00 CDTNotes: "Dissolve tablet in a glass of water prior to oral administration. STOMACH WARNING: To avoid serious injury, do not take until tablet is completely dissolved. It is very important not to take this product when overly full from food or drink." No Longer Active 03/15/2017 [facility] 12 HR ranolazine 500 MG Extended Release Tablet [Ranexa] 500 mg, 1 tab, Route: PO, Drug form: TAB, BID, Dosing Weight 100, kg, Start date: 03/15/17 17:00:00 CDT, Duration: 30 day, Stop date: 04/14/17 9:00:00 CDTNotes: Same as Ranexa "Do Not Crush" No Longer Active 03/15/2017 [facility] Carbidopa 10 MG / Levodopa 100 MG Oral Tablet 1 tab, Route: PO, Drug Form: TAB, Dosing Weight 100, kg, BID, Start date: 03/15/17 17:00:00 CDT, Duration: 30 day, Stop date: 04/14/17 9:00:00 CDTNotes: Take with milk or food. (Same As: Sinemet) No Longer Active 03/15/2017 [facility] aspirin 81 mg tablet, enteric coated 81 mg, 1 tab, Route: PO, Drug form: ECTAB, Daily, Dosing Weight 100, kg, Start date: 03/15/17 13:48:00 CDT, Duration: 30 day, Stop date: 04/14/17 9:00:00 CDTNotes: Do not crush or chew. (Same As: Ecotrin) No Longer Active 03/15/2017 [facility] Nitroglycerin 0.4 MG Sublingual Tablet [Nitrostat] 0.4 mg, 1 tab, Route: SL, Drug form: TAB, Q5Min, Dosing Weight 100, kg, PRN Chest Pain, Start date: 03/15/17 13:36:00 CDT, Duration: 30 day, Stop date: 04/14/17 13:35:00 CDTNotes: (Same as:Nitroquick, Nitrostat) "Do Not Crush" Sublingual tablet No Longer Active 03/15/2017 [facility] Docusate 100 mg, 1 cap, Route: PO, Drug form: CAP, BID, Dosing Weight 100, kg, Start date: 03/15/17 9:00:00 CDT, Duration: 30 day, Stop date: 04/13/17 17:00:00 CDTNotes: (Same as: Colace) (Do Not Crush) No Longer Active 03/15/2017 [facility] Streptococcus pneumoniae serotype 1 capsular antigen diphtheria [id number] protein conjugate vaccine / Streptococcus pneumoniae serotype 14 capsular antigen diphtheria [id number] protein conjugate vaccine / Streptococcus pneumoniae serotype 18C capsular antigen d 0.5 mL, Route: IM, Drug Form: INJ, ONCALL, Start date: 03/14/17 23:00:00 CDT, Duration: 1 doses or timesNotes: Shake well prior to use (Same as: Prevnar 13) No Longer Active 03/15/2017 [facility] Morphine 1 mg, 0.5 mL, Route: IVP, Drug form: INJ, Q4H, Dosing Weight 100, kg, PRN Pain Score 1-5, Start date: 03/14/17 22:32:00 CDT, Duration: 30 day, Stop date: 04/13/17 22:31:00 CDTNotes: (Same as:MORPhine Sulfate) No Longer Active 03/15/2017 [facility] Zofran 2 mg, 1 mL, Route: IV, Drug form: INJ, Q4H, Dosing Weight 100, kg, PRN as needed for nausea/vomiting, Start date: 03/14/17 22:32:00 CDT, Duration: 30 day, Stop date: 04/13/17 22:31:00 CDTNotes: (Same as: Zofran) MEDICATION WASTE Product Size: 4 mg Product Wasted: ___ mg No Longer Active 03/15/2017 [facility] Sodium Chloride 0.154 MEQ/ML Injectable Solution 1,000 mL, Rate: 125 ml/hr, Infuse over: 8 hr, Route: IV, Dosing Weight 100 kg, Total Volume: 1,000, Start date: 03/14/17 21:26:00 CDT, Duration: 30 day, Stop date: 04/13/17 21:25:00 CDT No Longer Active 03/15/2017 [facility] Sodium Chloride 0.154 MEQ/ML Injectable Solution 1,000 mL, 1,000 ml/hr, Infuse Over: 1 hr, Route: IV, 1,000, Drug form: INJ, ONCE, Priority: STAT, Dosing Weight 100 kg, Start date: 03/14/17 21:25:00 CDT, Duration: 1 doses or times, Stop date: 03/14/17 21:25:00 CDT Inactive 03/15/2017 [facility] cefepime 1 gm, Route: IVPB, [id number], Dosing Weight 100, kg, (CrCl 10 - 29 ml/min), Start date: 03/14/17 21:00:00 CDT, Duration: 10 day, Stop date: 03/23/17 21:00:00 CDT, ABX Indication: BacteremiaNotes: (Same As: Maxipime) MEDICATION WASTE Product Size: 1000 mg Product Wasted: ___ mg No Longer Active 03/15/2017 [facility] Magnesium Sulfate 2 gm, 50 mL, Route: IVPB, Drug form: INJ, ONCE, Dosing Weight 100, kg, Total dose=2 gm, Start date: 03/14/17 20:44:00 CDT, Duration: 1 doses or times, Stop date: 03/14/17 20:44:00 CDTNotes: WASTE: F/P - Sink; E - Municipal Trash Bin Inactive 03/15/2017 [facility] Vancomycin 1 gm, Route: IV, ONCE, Dosing Weight 100, kg, Start date: 03/14/17 20:41:00 CDT, Stop date: 03/14/17 20:41:00 CDT, ABX Indication: BacteremiaNotes: TIME CRITICAL MEDICATION (Same As: Vancocin) Infus ion rate 2001 mg: infuse over 2.5 hours MEDICATION WASTE Product Size: 1000 mg Product Wasted: ___ mg Inactive 03/15/2017 [facility] Kayexalate 30 gm, 120 mL, Route: PO, Drug form: SUSP, ONCE, Dosing Weight 100, kg, Start date: 03/14/17 20:41:00 CDT, Stop date: 03/14/17 20:41:00 CDTNotes: (sodium polystyrene sulfonate 15 gm/60 ml GARRET) Shake well before use. (Same as: Kayexalate, SPS) Inactive 03/15/2017 [facility] Acetaminophen 650 mg, 2 tab, Route: PO, Drug form: TAB, Q4H, Dosing Weight 100, kg, PRN Pain 1-3/Temp > 100.4 F, Start date: 03/14/17 20:41:00 CDT, Duration: 30 day, Stop date: 04/13/17 20:40:00 CDTNotes: Do not e xceed 4 gm/day. (Same as: Tylenol) No Longer Active 03/15/2017 [facility] Saline Flush 0.9% 10 ml, Route: IVP, Drug Form: INJ, Dosing Weight 100, kg, PRN, PRN Line Flush, Start date: 03/14/17 20:41:00 CDT, Duration: 30 day, Stop date: 04/13/17 20:40:00 CDTNotes: (Same as: BD Posiflush) No Longer Active 03/15/2017 [facility] NS + KCL 20mEq/L 1000ml (Premix) 1,000 mL 1,000 mL, Rate: 75 ml/hr, Infuse over: 13.3 hr, Route: IV, Dosing Weight 100 kg, Total Volume: 1,000, Start date: 03/14/17 20:41:00 CDT, Duration: 30 day, Stop date: 04/13/17 20:40:00 CDTNotes: PREMIX IV - Do Not Alter WASTE: F/P - Sink; E - Municipal Trash Bin Inactive 03/15/2017 [facility] Insulin, Aspart, Human 4 unit, 0.04 mL, Route: SUB-Q, Drug form: SOLN, Bedtime, Dosing Weight 100, kg, PRN Blood Glucose Results, Start date: 03/14/17 20:39:00 CDT, Duration: 30 day, Stop date: 04/13/17 20:38:00 CDTNotes: Roll in palms of hands gently; Do not shake vigorously. (Same as: NovoLOG) "single patient use only" WASTE: F/P - Black; E - Municipal Trash Bin Stable for 28 days at room temperature. Expires in days from Date No Longer Active 03/15/2017 [facility] Glucagon 1 mg, Route: IM, Drug form: PDR/INJ, PRN, Dosing Weight 100, kg, PRN Blood Glucose Results, Start date: 03/14/17 20:39:00 CDT, Duration: 30 day, Stop date: 04/13/17 20:38:00 CDT No Longer Active 03/15/2017 [facility] Dextrose 50% Syringe 12.5 gm, 25 mL, Route: IVP, Drug Form: INJ, Dosing Weight 100, kg, PRN, PRN Blood Glucose Results, Start date: 03/14/17 20:39:00 CDT, Duration: 30 day, Stop date: 04/13/17 20:38:00 CDT No Longer Active 03/15/2017 [facility] Morphine 4 mg, 1 mL, Route: IVP, Drug form: SOLN, ONCE, Dosing Weight 100, kg, Start date: 03/14/17 19:29:00 CDT, Stop date: 03/14/17 19:29:00 CDTNotes: (Same as:MORPhine Sulfate) Inactive 03/15/2017 [facility] Zofran 4 mg, 2 mL, Route: IVP, Drug form: INJ, ONCE, Dosing Weight 100, kg, Start date: 03/14/17 19:29:00 CDT, Stop date: 03/14/17 19:29:00 CDTNotes: (Same as: Zofran) MEDICATION WASTE Product Size: 4 mg Product Wasted: ___ mg Inactive 03/15/2017 [facility] Saline Flush 0.9% 10 mL, Route: IVP, Drug Form: INJ, Dosing Weight 100, kg, PRN, PRN Line Flush, Start date: 03/14/17 16:14:00 CDT, Duration: 30 day, Stop date: 04/13/17 16:13:00 CDTNotes: (Same as: BD Posiflush) No Longer Active 03/14/2017 [facility] 24 HR Metoprolol Tartrate 50 MG Extended Release Tablet [Toprol] 50 mg, 1 tab, Route: PO, Drug form: ERTAB, Daily, Start date: 02/05/17 9:00:00 CDT, Duration: 30 day, Stop date: 03/06/17 9:00:00 CDTNotes: (Same as: Toprol XL) May split tab, but do not crush. Inactive 02/05/2017 [facility] Lisinopril 20 mg, 1 tab, Route: PO, Drug form: TAB, Daily, Dosing Weight 102.909, kg, Start date: 02/05/17 9:00:00 CDT, Duration: 30 day, Stop date: 03/06/17 9:00:00 CDTNotes: (Same as: Prinivil, Zestril) No Longer Active 02/05/2017 [facility] Isosorbide 120 mg, 4 tab, Route: PO, Drug form: ERTAB, QAM, Dosing Weight 102.909, kg, Start date: 02/05/17 9:00:00 CDT, Duration: 30 day, Stop date: 03/06/17 9:00:00 CDTNotes: (Same as:Imdur) "Do Not Crush" Take on empty stomach/ full glass of water. Do not crush Inactive 02/05/2017 [facility] NovoLIN 70/30 65 unit, Route: SUB-Q, QAM, Dosing Weight 102.909, kg, Start date: 02/05/17 9:00:00 CDT, Duration: 30 day, Stop date: 03/06/17 9:00:00 CDT No Longer Active 02/05/2017 [facility] insulin aspart-insulin aspart protamine 65 unit, 0.65 mL, Route: SUB-Q, Drug form: INJ, QAM, Start date: 02/05/17 9:00:00 CDT, Duration: 30 day, Stop date: 03/06/17 9:00:00 CDTNotes: Roll in palms of hands gently; Do not shake vigorously. (Same as: NovoLOG Mix) "single patient use only" WASTE: F/P - Black; E - Municipal Trash Bin Stable for 14 days at room temperature Expires in days from Date Inactive 02/05/2017 [facility] clopidogrel 75 mg, 1 tab, Route: PO, Drug form: TAB, Daily, Dosing Weight 102.909, kg, Start date: 02/05/17 9:00:00 CDT, Duration: 30 day, Stop date: 03/06/17 9:00:00 CDTNotes: (Same As: Plavix) Inactive 02/05/2017 [facility] aspirin 81 mg tablet, enteric coated 81 mg, 1 tab, Route: PO, Drug form: ECTAB, Daily, Dosing Weight 102.909, kg, Start date: 02/05/17 9:00:00 CDT, Duration: 30 day, Stop date: 03/06/17 9:00:00 CDTNotes: Do not crush or chew. (Same As: Ecotrin) Inactive 02/05/2017 [facility] glimepiride 2 mg, Route: PO, Drug form: TAB, Breakfast, Dosing Weight 102.909, kg, Start date: 02/05/17 8:00:00 CDT, Duration: 30 day, Stop date: 03/06/17 8:00:00 CDT No Longer Active 02/05/2017 [facility] Glucotrol 10 mg, 1 tab, Route: PO, Drug form: TAB, Before Breakfast, Start date: 02/05/17 7:30:00 CDT, Duration: 30 day, Stop date: 03/06/17 7:30:00 CDTNotes: (Same as: Glucotrol) 30 min before meals. Inactive 02/05/2017 [facility] Humulin 70/30 Route: SUB-Q, Drug form: SUSP, Bedtime, Dosing Weight 102.909, kg, Start date: 02/04/17 21:00:00 CDT, Duration: 30 day, Stop date: 03/05/17 21:00:00 CDT Inactive 02/05/2017 [facility] Furosemide 40 MG Oral Tablet 40 mg, 1 tab, Route: PO, Drug form: TAB, Bedtime, Dosing Weight 102.909, kg, Start date: 02/04/17 21:00:00 CDT, Duration: 30 day, Stop date: 03/05/17 21:00:00 CDTNotes: (Same as: Lasix) May cause GI upset. Give with food or milk. Inactive 02/05/2017 [facility] atorvastatin 40 mg, 1 tab, Route: PO, Drug form: TAB, Bedtime, Dosing Weight 102.909, kg, Start date: 02/04/17 21:00:00 CDT, Duration: 30 day, Stop date: 03/05/17 21:00:00 CDTNotes: (Same as: Lipitor) No Longer Active 02/05/2017 [facility] insulin aspart-insulin aspart protamine 45 unit, 0.45 mL, Route: SUB-Q, Drug form: INJ, Bedtime, Start date: 02/04/17 21:00:00 CDT, Duration: 30 day, Stop date: 03/05/17 21:00:00 CDTNotes: Roll in palms of hands gently; Do not shake vigorously. (Same as: NovoLOG Mix) "single patient use only" WASTE: F/P - Black; E - Municipal Trash Bin Stable for 14 days at room temperature Expires in days from Date No Longer Active 02/05/2017 [facility] 12 HR ranolazine 500 MG Extended Release Tablet [Ranexa] 500 mg, 1 tab, Route: PO, Drug form: TAB, BID, Dosing Weight 102.909, kg, Start date: 02/04/17 17:00:00 CDT, Duration: 30 day, Stop date: 03/06/17 9:00:00 CDTNotes: Same as Ranexa "Do Not Crush" No Longer Active 02/04/2017 [facility] gabapentin 300 mg, 1 cap, Route: PO, Drug form: CAP, TID, Dosing Weight 102.909, kg, Start date: 02/04/17 17:00:00 CDT, Duration: 30 day, Stop date: 03/06/17 13:00:00 CDTNotes: (Same as: Neurontin) No Longer Active 02/04/2017 [facility] Carbidopa 10 MG / Levodopa 100 MG Oral Tablet 1 tab, Route: PO, Drug Form: TAB, Dosing Weight 102.909, kg, BID, Start date: 02/04/17 17:00:00 CDT, Duration: 30 day, Stop date: 03/06/17 9:00:00 CDTNotes: Take with milk or food. (Same As: Sinemet) No Longer Active 02/04/2017 [facility] Hydralazine 10 mg, 0.5 mL, Route: IVP, Drug form: INJ, Q6H, Dosing Weight 102.909, kg, PRN Hypertension, Hydralazine 10mg IV q6h prn SBP>160mmHg., Start date: 02/04/17 16:24:00 CDT, Duration: 30 day, Stop date: 03/06/17 16:23:00 CDTNotes: (Same as: Apresoline) Push over 5 minutes No Longer Active 02/04/2017 [facility] Insulin, Aspart, Human 1 unit, 0.01 mL, Route: SUB-Q, Drug form: SOLN, Bedtime, Dosing Weight 102.909, kg, PRN Blood Glucose Results, Start date: 02/04/17 13:24:00 CDT, Duration: 30 day, Stop date: 03/06/17 13:23:00 CDTNotes: Roll in palms of hands gently; Do not shake vigorously. (Same as: NovoLOG) "single patient use only" WASTE: F/P - Black; E - Municipal Trash Bin Stable for 28 days at room temperature. Expires in days from Date No Longer Active 02/04/2017 [facility] Glucagon 1 mg, Route: IM, Drug form: PDR/INJ, PRN, Dosing Weight 102.909, kg, PRN Blood Glucose Results, Start date: 02/04/17 13:24:00 CDT, Duration: 30 day, Stop date: 03/06/17 13:23:00 CDT No Longer Active 02/04/2017 [facility] Dextrose 50% Syringe 25 gm, 50 mL, Route: IVP, Drug Form: INJ, Dosing Weight 102.909, kg, PRN, PRN Blood Glucose Results, Start date: 02/04/17 13:24:00 CDT, Duration: 30 day, Stop date: 03/06/17 13:23:00 CDT No Longer Active 02/04/2017 [facility] Nitroglycerin 0.4 MG Sublingual Tablet [Nitrostat] 0.4 mg, 1 tab, Route: SL, Drug form: TAB, Q5Min, Dosing Weight 102.909, kg, PRN Chest Pain, Start date: 02/04/17 13:22:00 CDT, Duration: 30 day, Stop date: 03/06/17 13:21:00 CDT Inactive 02/04/2017 [facility] Saline Flush 0.9% 10 ml, Route: IVP, Drug Form: INJ, Dosing Weight 100, kg, Q12H, Start date: 02/04/17 9:00:00 CDT, Duration: 30 day, Stop date: 03/05/17 21:00:00 CDTNotes: (Same as: BD Posiflush) No Longer Active 02/04/2017 [facility] aspirin 81 mg tablet, enteric coated 81 mg, 1 tab, Route: PO, Drug form: ECTAB, Daily, Dosing Weight 100, kg, Start date: 02/04/17 9:00:00 CDT, Duration: 30 day, Stop date: 03/05/17 9:00:00 CDTNotes: Do not crush or chew. (Same As: Ecotrin) Inactive 02/04/2017 [facility] Carbidopa 10 MG / Levodopa 100 MG Oral Tablet 1 tab, PO, BID, 0 Refill(s) Active 02/04/2017 [facility] gabapentin 900 mg, PO, TID, 0 Refill(s) No Longer Active 02/04/2017 [facility] isosorbide mononitrate 120 mg oral tablet, extended release 120 mg=1 tab, PO, QAM, # 30 tab, 0 Refill(s) Active 02/04/2017 [facility] insulin isophane-insulin regular human recombinant 70 units-30 units/mL subcutaneous injection 45 unit, SUB-Q, Bedtime, 0 Refill(s) Active 02/04/2017 [facility] 12 HR ranolazine 500 MG Extended Release Tablet [Ranexa] 500 mg=1 tab, PO, BID, # 60 tab, 0 Refill(s) Active 02/04/2017 [facility] metoprolol extended release 25 mg, PO, Daily, 0 Refill(s) No Longer Active 02/04/2017 [facility] Saline Flush 0.9% 10 ml, Route: IVP, Drug Form: INJ, Dosing Weight 100, kg, PRN, PRN Line Flush, Start date: 02/04/17 3:38:00 CDT, Duration: 30 day, Stop date: 03/06/17 3:37:00 CDTNotes: (Same as: BD Posiflush) No Longer Active 02/04/2017 [facility] Sodium Chloride 0.154 MEQ/ML Injectable Solution 1,000 mL, Rate: 75 ml/hr, Infuse over: 13.3 hr, Route: IV, Dosing Weight 100 kg, Total Volume: 1,000, Start date: 02/04/17 3:38:00 CDT, Duration: 30 day, Stop date: 03/06/17 3:37:00 CDT No Longer Active 02/04/2017 [facility] Ondansetron 4 mg, 1 tab, Route: PO, Drug form: TABDIS, Q8H, Dosing Weight 100, kg, PRN Nausea & Vomiting, Start date: 02/04/17 3:38:00 CDT, Duration: 30 day, Stop date: 03/06/17 3:37:00 CDTNotes: (Same as: Zofran ODT) No Longer Active 02/04/2017 [facility] Nitroglycerin 0.4 mg, 1 tab, Route: SL, Drug form: TAB, Q5Min, Dosing Weight 100, kg, PRN Chest Pain, Start date: 02/04/17 3:38:00 CDT, Duration: 3 doses or times, Stop date: Limited # of timesNotes: (Same as:Tres hathaway, Nitrostat) "Do Not Crush" Sublingual tablet No Longer Active 02/04/2017 [facility] sodium chloride 0.9% 1000 ml INJ 1,000 mL 1,000 mL, Rate: 1,000 ml/hr, Infuse over: 1 hr, Route: IV, Dosing Weight 100 kg, Total Volume: 1,000, Priority: STAT, Start date: 02/04/17 2:13:00 CDT, Duration: 1 doses or times, Stop date: 02/04/17 3:12:00 CDT Inactive 02/04/2017 [facility] Nitroglycerin 0.02 MG/MG Topical Ointment 1 inch, Route: TOP, Dosing Weight 100, kg, ONCE, STAT, Start date: 02/04/17 0:58:00 CDT, Stop date: 02/04/17 0:58:00 CDT Inactive 02/04/2017 [facility] Saline Flush 0.9% 10 mL, Route: IVP, Drug Form: INJ, Dosing Weight 100, kg, PRN, PRN Line Flush, Start date: 02/04/17 0:58:00 CDT, Duration: 30 day, Stop date: 03/06/17 0:57:00 CDTNotes: (Same as: BD Posiflush) No Longer Active 02/04/2017 [facility] Toprol XL 1 tablet Orally Active 50 MG Orally Once a day Juarez 11/27/2016 [facility] Toprol XL 1 tablet Orally Active 50 mg Orally Once in am Watkins 11/27/2016 [facility] Glimepiride 1 tablet with breakfast or the first main meal of the day Orally Active 2 MG Orally Once a day Juarez 08/27/2016 [facility] Ranexa 1 tablet Orally Active 500 MG Orally Twice a day Juarez 06/06/2016 [facility] Glimepiride 1 tablet with breakfast or the first main meal of the day Orally Active 2 MG Orally Once a day Juarez 05/03/2016 [facility] Gabapentin 3 capsule Orally Active 300 MG Orally Three times a day Juarez 02/28/2016 [facility] ProAir HFA 2 puffs as needed Inhalation Active 108 (90 Base) MCG/ACT Inhalation every 4 hrs prn Juarez 02/22/2016 [facility] ProAir HFA 2 puffs as needed Inhalation Active 108 (90 Base) MCG/ACT Inhalation every 4 hrs prn Kolby 02/22/2016 [facility] Levaquin 1 tablet Orally Active 500 mg Orally Once a day Juarez 02/22/2016 [facility] Tessalon Perles 1 capsule as needed Orally Active 100 mg Orally Three times a day prn Juarez 02/22/2016 [facility] Tramadol HCl 1 tablet as needed Orally Active 50 mg Orally QD PRN Juarez 01/25/2016 [facility] Gabapentin as directed Orally Active 300 MG Orally three times a day (tid) Juarez 01/25/2016 [facility] metoprolol extended release 50 mg, 1 tab, Route: PO, Drug form: ERTAB, QPM, Start date: 01/10/16 17:00:00 CDT, Duration: 30 day, Stop date: 02/08/16 17:00:00 CDTNotes: (Same as: Toprol XL) May split tab, but do not crush. No Longer Active 01/10/2016 [facility] NovoLIN 70/30 45 unit, 0.45 mL, Route: SUB-Q, Drug form: INJ, Before Dinner, Dosing Weight 104.545, kg, Start date: 01/10/16 16:30:00 CDT, Duration: 30 day, Stop date: 02/08/16 16:30:00 CDTNotes: Roll in palms of hands gently; Do not shake. (Same as: NovoLIN Mix 70/30) Do not hold insulin without contacting prescriber WASTE: F/P - Black; E - Municipal Trash Bin No Longer Active 01/10/2016 [facility] gabapentin 600 MG Oral Tablet 600 mg=1 tab, PO, TID, # 270 tab, 0 Refill(s) Active 01/10/2016 [facility] Nitroglycerin 0.4 MG Sublingual Tablet [Nitrostat] 0.4 mg=1 tab, SL, Q5Min, PRN Chest Pain, # 100 tab, 0 Refill(s) Active 01/10/2016 [facility] lisinopril 20 mg oral tablet 20 mg=1 tab, PO, Daily, # 30 tab, 0 Refill(s) Active 01/10/2016 [facility] glimepiride 2 mg oral tablet 2 mg=1 tab, PO, Breakfast, # 30 tab, 0 Refill(s) Active 01/10/2016 [facility] metoprolol 50 mg oral tablet, extended release 50 mg=1 tab, PO, Daily, # 30 tab, 0 Refill(s) Active 01/10/2016 [facility] Furosemide 40 MG Oral Tablet 40 mg=1 tab, PO, Bedtime, # 30 tab, 0 Refill(s) Active 01/10/2016 [facility] Metformin hydrochloride 1000 MG Oral Tablet 1,000 mg=1 tab, PO, BID-Meals, # 30 tab, 0 Refill(s) Active 01/10/2016 [facility] isosorbide dinitrate 30 mg oral tablet 90 mg=3 tab, PO, Daily, 0 Refill(s) Active 01/10/2016 [facility] Metformin hydrochloride 1000 MG Oral Tablet 1,000 mg, 1 tab, Route: PO, Drug form: TAB, BID, Dosing Weight 104.545, kg, Start date: 01/10/16 9:00:00 CDT, Duration: 30 day, Stop date: 02/08/16 17:00:00 CDTNotes: Same as Glucophage No Longer Active 01/10/2016 [facility] Lasix 40 mg, 1 tab, Route: PO, Drug form: TAB, Daily, Dosing Weight 104.545, kg, Start date: 01/10/16 9:00:00 CDT, Duration: 30 day, Stop date: 02/08/16 9:00:00 CDTNotes: (Same as: Lasix) May cause GI upset. Give with food or milk. No Longer Active 01/10/2016 [facility] Imdur 90 mg, 3 tab, Route: PO, Drug form: ERTAB, QAM, Dosing Weight 104.545, kg, Start date: 01/10/16 9:00:00 CDT, Duration: 30 day, Stop date: 02/08/16 9:00:00 CDTNotes: (Same as:Imdur) "Do Not Crush" Take on empty stomach/ full glass of water. Do not crush No Longer Active 01/10/2016 [facility] pantoprazole 40 mg, Route: IVP, Drug form: INJ, Daily, Dosing Weight 104.545, kg, Start date: 01/10/16 9:00:00 CDT, Duration: 30 day, Stop date: 02/08/16 9:00:00 CDTNotes: (Same as: Protonix) No Longer Active 01/10/2016 [facility] Docusate 100 mg, 1 cap, Route: PO, Drug form: CAP, Q12H, Dosing Weight 104.545, kg, Start date: 01/10/16 9:00:00 CDT, Duration: 30 day, Stop date: 02/08/16 21:00:00 CDTNotes: (Same as: Colace) (Do Not Crush) No Longer Active 01/10/2016 [facility] Aspirin 81 mg, 1 tab, Route: PO, Drug form: CHEWTAB, Daily, Dosing Weight 104.545, kg, Start date: 01/10/16 9:00:00 CDT, Duration: 30 day, Stop date: 02/08/16 9:00:00 CDTNotes: Take with food. No Longer Active 01/10/2016 [facility] clopidogrel 75 mg, 1 tab, Route: PO, Drug form: TAB, Daily, Dosing Weight 104.545, kg, Priority: Routine, Start date: 01/10/16 9:00:00 CDT, Duration: 30 day, Stop date: 02/08/16 9:00:00 CDTNotes: (Same As: Plavix) No Longer Active 01/10/2016 [facility] glimepiride 2 mg, 1 tab, Route: PO, Drug form: TAB, Daily, Dosing Weight 104.545, kg, Start date: 01/10/16 9:00:00 CDT, Duration: 30 day, Stop date: 02/08/16 9:00:00 CDTNotes: (Same as: Amaryl) No Longer Active 01/10/2016 [facility] atorvastatin 40 mg, 1 tab, Route: PO, Drug form: TAB, Daily, Dosing Weight 104.545, kg, Start date: 01/10/16 9:00:00 CDT, Duration: 30 day, Stop date: 02/08/16 9:00:00 CDTNotes: (Same as: Lipitor) No Longer Active 01/10/2016 [facility] gabapentin 600 MG Oral Tablet 600 mg, 2 cap, Route: PO, Drug form: CAP, BID, Dosing Weight 104.545, kg, Start date: 01/10/16 9:00:00 CDT, Duration: 30 day, Stop date: 02/08/16 17:00:00 CDTNotes: (Same as: Neurontin) No Longer Active 01/10/2016 [facility] Lisinopril 20 mg, 1 tab, Route: PO, Drug form: TAB, Daily, Dosing Weight 104.545, kg, Start date: 01/10/16 9:00:00 CDT, Duration: 30 day, Stop date: 02/08/16 9:00:00 CDTNotes: (Same as: Prinivil, Zestril) No Longer Active 01/10/2016 [facility] NovoLIN 70/30 65 unit, 0.65 mL, Route: SUB-Q, Drug form: INJ, Before Breakfast, Dosing Weight 104.545, kg, Start date: 01/10/16 7:30:00 CDT, Duration: 30 day, Stop date: 02/08/16 7:30:00 CDTNotes: Roll in palms of wolfe nds gently; Do not shake. (Same as: NovoLIN Mix 70/30) Do not hold insulin without contacting prescriber WASTE: F/P - Black; E - Municipal Trash Bin No Longer Active 01/10/2016 [facility] Calcium Gluconate 1 gm, 10 mL, Route: IVPB, PRN, Dosing Weight 104.545, kg, PRN Abnormal Lab Result, Start date: 01/10/16 2:34:00 CDT, Duration: 30 day, Stop date: 02/09/16 2:33:00 CDT, FOR ICU USE ONLYNotes: WASTE: F/P - Sink; E - Municipal Trash Bin No Longer Active 01/10/2016 [facility] Magnesium Oxide 800 mg, 2 tab, Route: PO, Drug form: TAB, PRN, Dosing Weight 104.545, kg, PRN Abnormal Lab Result, FOR ICU USE ONLY, Start date: 01/10/16 2:34:00 CDT, Duration: 30 day, Stop date: 02/09/16 2:33:00 CDTNotes: (Same as: Mag-Ox 400) Magnesium oxide [id number] elemental magnesium Dose=____mg magnesium oxide (___mg elemental magnesium) No Longer Active 01/10/2016 [facility] Calcium Carbonate 500 MG Chewable Tablet 1,000 mg, 2 tab, Route: PO, Drug form: CHEWTAB, PRN, Dosing Weight 104.545, kg, PRN Abnormal Lab Result, FOR ICU USE ONLY, Start date: 01/10/16 2:34:00 CDT, Duration: 30 day, Stop date: 02/09/16 2:33:00 CDTNotes: (Same As: Tums) Calcium Carbonate 500 up=791 mg elemental calcium Dose= mg calcium carbonate ( mg elemental calcium) No Longer Active 01/10/2016 [facility] potassium phosphate + Sodium Chloride 0.9% IV 250 mL 15 mmol, 5 mL, Route: IVPB, Drug form: INJ, PRN, Dosing Weight 104.545, kg, PRN Abnormal Lab Result, Start date: 01/10/16 2:34:00 CDT, Duration: 30 day, Stop date: 02/09/16 2:33:00 CDT, FOR ICU USE ONLYNotes: (Same as: K Phosphate.) 1 mMol phoshate has 1.47 mEq potassium Infuse over 4 hours No Longer Active 01/10/2016 [facility] Magnesium Sulfate 2 gm, 50 mL, Route: IVPB, Drug form: INJ, PRN, Dosing Weight 104.545, kg, PRN Abnormal Lab Result, Start date: 01/10/16 2:34:00 CDT, Duration: 30 day, Stop date: 02/09/16 2:33:00 CDT, FOR ICU USE ONLYNotes: WASTE: F/P - Sink; E - Municipal Trash Bin No Longer Active 01/10/2016 [facility] Neutra-Phos 2 pkt, Route: PO, Drug Form: PDR/REC, Dosing Weight 104.545, kg, PRN, PRN Abnormal Lab Result, FOR ICU USE ONLY, Start date: 01/10/16 2:34:00 CDT, Duration: 30 day, Stop date: 02/09/16 2:33:00 CDTNotes: (Same as: Neutra-Phos) Each 1.25 gm pkt has 250mg phosphorous. Mix w/2.5oz water and stir. No Longer Active 01/10/2016 [facility] potassium chloride 20 mEq, 1 tab, Route: PO, Drug form: ERTAB, PRN, Dosing Weight 104.545, kg, PRN Abnormal Lab Result, Start date: 01/10/16 2:34:00 CDT, Duration: 30 day, Stop date: 02/09/16 2:33:00 CDT, FOR ICU USE ONLYNotes: (Same as: K-Dur 20) "Do Not Crush" With food and full glass of water No Longer Active 01/10/2016 [facility] sodium phosphate + Sodium Chloride 0.9% IV 250 mL 30 mmol, 10 mL, Route: IVPB, Drug form: INJ, PRN, Dosing Weight 104.545, kg, PRN Abnormal Lab Result, Start date: 01/10/16 2:34:00 CDT, Duration: 30 day, Stop date: 02/09/16 2:33:00 CDT, FOR ICU USE ONLY No Longer Active 01/10/2016 [facility] Insulin, Aspart, Human 2 unit, 0.02 mL, Route: SUB-Q, Drug form: SOLN, Sliding Scale, Dosing Weight 104.545, kg, PRN Blood Glucose Results, Start date: 01/10/16 1:44:00 CDT, Duration: 30 day, Stop date: 02/09/16 1:43:00 CDTNotes: Roll in palms of hands gently; Do not shake vigorously. (Same as: NovoLOG) "single patient use only" WASTE: F/P - Black; E - Municipal Trash Bin Stable for 28 days at room temperature. Expires in days from Date No Longer Active 01/10/2016 [facility] Dextrose 50% Syringe 25 gm, 50 mL, Route: IVP, Drug Form: INJ, Dosing Weight 104.545, kg, PRN, PRN Blood Glucose Results, Start date: 01/10/16 1:44:00 CDT, Duration: 30 day, Stop date: 02/09/16 1:43:00 CDT No Longer Active 01/10/2016 [facility] Glucagon 1 mg, Route: IM, Drug form: PDR/INJ, PRN, Dosing Weight 104.545, kg, PRN Blood Glucose Results, Start date: 01/10/16 1:44:00 CDT, Duration: 30 day, Stop date: 02/09/16 1:43:00 CDT No Longer Active 01/10/2016 [facility] Nitroglycerin 0.4 mg, 1 tab, Route: SL, Drug form: TAB, Q5Min, Dosing Weight 104.545, kg, PRN Chest Pain, Start date: 01/10/16 1:26:00 CDT, Duration: 3 doses or times, Stop date: Limited # of timesNotes: (Same as: Nitroquick, Nitrostat) "Do Not Crush" Sublingual tablet No Longer Active 01/10/2016 [facility] Al hydroxide/Mg hydroxide/simethicone 200 mg-200 mg-20 mg/5 mL oral suspension 30 mL, Route: PO, Drug Form: SUSP, Dosing Weight 104.545, kg, Q12H, PRN Indigestion, Start date: 01/10/16 1:26:00 CDT, Duration: 30 day, Stop date: 02/09/16 1:25:00 CDTNotes: (aluminum hydroxide-magnesium hyd- simethicone [phone]/5ml 30 ml ud GARRET) No Longer Active 01/10/2016 [facility] Ondansetron 4 mg, 1 tab, Route: PO, Drug form: TAB, Q8H, Dosing Weight 104.545, kg, PRN Nausea & Vomiting, Start date: 01/10/16 1:26:00 CDT, Duration: 30 day, Stop date: 02/09/16 1:25:00 CDTNotes: (Same as: Zofran) No Longer Active 01/10/2016 [facility] Nitroglycerin 0.4 mg, 1 tab, Route: SL, Drug form: TAB, Q5Min, Dosing Weight 104.545, kg, PRN Chest Pain, Priority: STAT, Start date: 01/09/16 23:15:00 CDT, Duration: 3 doses or times, Stop date: 01/11/16 0:00:00 CDTNotes: (Same as:Nitroquick, Nitrostat) "Do Not Crush" Sublingual tablet No Longer Active 01/10/2016 [facility] Aspirin 324 mg, 4 tab, Route: CHEW, Drug form: CHEWTAB, ONCE, Dosing Weight 104.545, kg, Priority: STAT, Start date: 01/09/16 23:13:00 CDT, Stop date: 01/09/16 23:13:00 CDTNotes: Take with food. Inactive 01/10/2016 [facility] Saline Flush 0.9% 10 mL, Route: IVP, Drug Form: INJ, Dosing Weight 104.545, kg, PRN, PRN Line Flush, Start date: 01/09/16 23:13:00 CDT, Duration: 30 day, Stop date: 02/08/16 23:12:00 CDTNotes: Same as: BD Posiflush Sterile No Longer Active 01/10/2016 [facility] Lisinopril 1 tablet Orally Active 20 MG Orally Once a day Juarez 12/31/2015 [facility] Lisinopril 1 tablet Orally Active 20 MG Orally Once a day Valdez Reddy 12/31/2015 [facility] Toprol XL 1 tablet Orally Active 50 MG Orally Once a day Ghebranious 12/31/2015 [facility] Lasix 1 tablet Orally Active 40 mg Orally Once a day Juarez 12/31/2015 [facility] Novolin 70/30 as directed Subcutaneous Active (70-30) 100 UNIT/ML Subcutaneous 65 units am and 45 units pm Juarez 12/23/2015 [facility] Novolin 70/30 as directed Subcutaneous Active (70-30) 100 UNIT/ML Subcutaneous 65 units am and 45 units pm Kellogg Reddy 12/23/2015 [facility] Linzess 1 capsule Orally Active 145 MCG Orally Once a day Kolby 12/22/2015 [facility] clopidogrel 75 mg, 1 tab, Route: PO, Drug form: TAB, Daily, Dosing Weight 104.545, kg, Start date: 11/11/15 9:00:00, Duration: 30 day, Stop date: 12/10/15 9:00:00Notes: (Same As: Plavix) No Longer Active 11/11/2015 [facility] Aspirin 325 MG Oral Tablet 325 mg, 1 tab, Route: PO, Drug form: TAB, Daily, Dosing Weight 104.545, kg, Start date: 11/11/15 9:00:00, Duration: 30 day, Stop date: 12/10/15 9:00:00Notes: Take with food. No Longer Active 11/11/2015 [facility] metoprolol extended release 25 mg, 1 tab, Route: PO, Drug form: ERTAB, Daily, Start date: 11/11/15 9:00:00, Duration: 30 day, Stop date: 12/10/15 9:00:00Notes: (Same as: Toprol XL) Do Not Crush No Longer Active 11/11/2015 [facility] Nitroglycerin 0.02 MG/MG Topical Ointment 1 inch, Route: TOP, Drug Form: OINT, Dosing Weight 104.545, kg, TID, Start date: 11/11/15 6:00:00, Duration: 30 day, Stop date: 12/10/15 18:00:00Notes: 1 gram is approximately 1 inch of nitroglycerin ointment (20 mg NTG per gram) (Same as:Nitro-Bid) No Longer Active 11/11/2015 [facility] Insulin, Aspart, Human 8 unit, 0.08 mL, Route: SUB-Q, Drug form: SOLN, Sliding Scale, Dosing Weight 104.545, kg, PRN Blood Glucose Results, Start date: 11/11/15 1:28:00, Duration: 30 day, Stop date: 12/11/15 2:27:00Notes: Roll in palms of hands gently; Do not shake vigorously. (Same as: NovoLOG) "single patient use only" WASTE: F/P - Black; E - Municipal Trash Bin Stable for 28 days at room temperature. Expires in days from Date No Longer Active 11/11/2015 [facility] Dextrose 50% Syringe 12.5 gm, 25 mL, Route: IVP, Drug Form: INJ, Dosing Weight 104.545, kg, PRN, PRN Blood Glucose Results, Start date: 11/11/15 1:28:00, Duration: 30 day, Stop date: 12/11/15 2:27:00 No Longer Active 11/11/2015 [facility] Glucagon 1 mg, Route: IM, Drug form: PDR/INJ, PRN, Dosing Weight 104.545, kg, PRN Blood Glucose Results, Start date: 11/11/15 1:28:00, Duration: 30 day, Stop date: 12/11/15 2:27:00 No Longer Active 11/11/2015 [facility] Heparin 60 unit/kg Bolus (Heparin Dosing Weight) Route: IVP, PRN, 4,800 unit, 4.8 mL, Drug form: INJ, PRN, Heparin Protocol, Start date: 11/11/15 1:25:00 Stop date: 12/11/15 2:24:00, 30 day No Longer Active 11/11/2015 [facility] heparin additive 25,000 unit [12 unit/kg/hr] + Premix Diluent Dextrose 5% 500 mL 500 mL, Rate: 19.22 ml/hr, Infuse over: 26 hr, Route: IV, Dosing Weight 80.1 kg, Total Volume: 500 mL, Start date: 11/11/15 1:25:00, Duration: 30 day, Stop date: 12/11/15 1:24:00 No Longer Active 11/11/2015 [facility] Heparin 30 unit/kg Bolus (Heparin Dosing Weight) Route: IVP, PRN, 2,400 unit, 2.4 mL, Drug form: INJ, PRN, Heparin Protocol, Start date: 11/11/15 1:25:00 Stop date: 12/11/15 2:24:00, 30 day No Longer Active 11/11/2015 [facility] Nitroglycerin 0.4 mg, 1 tab, Route: SL, Drug form: TAB, Q5Min, Dosing Weight 104.545, kg, PRN Chest Pain, Start date: 11/11/15 1:25:00, Duration: 3 doses or times, Stop date: Limited # of timesNotes: (Same as:Nitroqu ick, Nitrostat) "Do Not Crush" Sublingual tablet No Longer Active 11/11/2015 [facility] Sodium Chloride 0.154 MEQ/ML Injectable Solution 1,000 mL, Rate: 75 ml/hr, Infuse over: 13.3 hr, Route: IV, Dosing Weight 104.545 kg, Total Volume: 1,000, Start date: 11/11/15 1:25:00, Duration: 12 hr, Stop date: 11/11/15 13:24:00 Inactive 11/11/2015 [facility] Ambien 5 mg, 1 tab, Route: PO, Drug form: TAB, Bedtime, Dosing Weight 104.545, kg, PRN Insomnia, Start date: 11/11/15 1:17:00, Duration: 30 day, Stop date: 12/11/15 1:16:00Notes: (Same As: Ambien) No Longer Active 11/11/2015 [facility] NovoLIN 70/30 45 unit, SUB-Q, QPM, 0 Refill(s) Active 11/11/2015 [facility] Aspirin 81 MG Enteric Coated Tablet 81 mg=1 tab, PO, Daily, 3 Refill(s) Active 11/11/2015 [facility] Heparin - one time bolus for ACS 4,000 unit, 4 mL, Route: IV, Drug form: INJ, ONCE, Dosing Weight 104.545, kg, Priority: STAT, Start date: 11/10/15 22:05:00, Stop date: 11/10/15 22:05:00 No Longer Active 11/11/2015 [facility] heparin additive 25,000 unit [12 unit/kg/hr] + Premix Diluent Dextrose 5% 500 mL 500 mL, Rate: 19.22 ml/hr, Infuse over: 26 hr, Route: IV, Dosing Weight 80.1 kg, Total Volume: 500 mL, Start date: 11/10/15 22:05:00, Duration: 30 day, Stop date: 12/10/15 22:04:00 No Longer Active 11/11/2015 [facility] Heparin 30 unit/kg Bolus (Heparin Dosing Weight) Route: IVP, PRN, 2,400 unit, 2.4 mL, Drug form: INJ, PRN, Heparin Protocol, Start date: 11/10/15 22:05:00 Stop date: 12/10/15 23:04:00, 30 day No Longer Active 11/11/2015 [facility] Heparin 60 unit/kg Bolus (Heparin Dosing Weight) Route: IVP, PRN, 4,800 unit, 4.8 mL, Drug form: INJ, PRN, Heparin Protocol, Start date: 11/10/15 22:05:00 Stop date: 12/10/15 23:04:00, 30 day No Longer Active 11/11/2015 [facility] metoprolol tartrate 25 mg, 1 tab, Route: PO, Drug form: TAB, ONCE, Dosing Weight 104.545, kg, Priority: STAT, Start date: 11/10/15 22:04:00, Stop date: 11/10/15 22:04:00Notes: (Same as: Lopressor) Inactive 11/11/2015 [facility] Nitroglycerin 0.02 MG/MG Topical Ointment 1 inch, Route: TOP, Drug Form: OINT, Dosing Weight 104.545, kg, ONCE, STAT, Start date: 11/10/15 21:20:00, Stop date: 11/10/15 21:20:00Notes: 1 gram is approximately 1 inch of nitroglycerin ointment (20 mg NTG per gram) (Same as:Nitro-Bid) Inactive 11/11/2015 [facility] Aspirin 243 mg, 3 tab, Route: CHEW, Drug form: CHEWTAB, ONCE, Dosing Weight 104.545, kg, Priority: STAT, Start date: 11/10/15 19:38:00, Stop date: 11/10/15 19:38:00Notes: Take with food. Inactive 11/11/2015 [facility] Nitroglycerin 0.4 mg, 1 tab, Route: SL, Drug form: TAB, Q5Min, Dosing Weight 104.545, kg, PRN Chest Pain, Priority: STAT, Start date: 11/10/15 19:38:00, Duration: 3 doses or times, Stop date: Limited # of timesNot es: (Same as:Nitroquick, Nitrostat) "Do Not Crush" Sublingual tablet No Longer Active 11/11/2015 [facility] Saline Flush 0.9% 10 mL, Route: IVP, Drug Form: INJ, Dosing Weight 97.727, kg, PRN, PRN Line Flush, Start date: 11/10/15 15:17:00, Duration: 30 day, Stop date: 12/10/15 16:16:00Notes: (Same as: BD Posiflush) No Longer Active 11/10/2015 [facility] Lisinopril-Hydrochlorothiazide 1 tablet Orally No Longer Active 20-12.5 MG Orally Once a day Ghebranious 11/07/2015 [facility] Glimepiride 1 tablet with breakfast or the first main meal of the day Orally Active 2 MG Orally Once a day (with evening meal) [place] 11/07/2015 [facility] Imdur 1 tablet Orally Active 30 mg Orally Once a day ebranious 11/02/2015 [facility] Gabapentin 3 CAPSULES orally Active 300 MG orally three times a day (tid) as needed (prn) [facility] Metoprolol Succinate ER 1 tablet Orally Active 25 MG Orally Once a day [facility] Atorvastatin Calcium 1 tablet Orally Active 40 mg Orally Once a day [facility] Furosemide 1 tablet Orally Active 40 MG Orally Once a day [facility] Metformin HCl 1 TABLET WITH MEALS TWICE A DAY ORALLY 90 DAYS NA Active 1000 MG Valdez Reddy [facility] Aspir-81 1 tablet Orally Active 81 MG Orally Once a day [facility] Carbidopa-Levodopa ER 1 tablet Orally Active 25-100 MG Orally twice a day (bid) [place] [facility] Clopidogrel Bisulfate 1 tablet Orally Active 75 mg Orally Once a day [place] [facility] Isosorbide Mononitrate 1 tablet Orally Active 120 MG Orally Once a day [facility] Ranexa 1 tablet Orally Active 500 MG Orally Twice a day [facility] Linzess TAKE 1 CAPSULE BY MOUTH EVERY DAY NA Active 145 [place] [facility] Nitroglycerin 1 tablet Sublingual Active 0.4 MG Sublingual once a day prn [place] [facility] Furosemide 1 tablet Orally Active 40 MG Orally Once a day [place] [facility] Ranexa 1 tablet Orally Active 500 MG Orally Twice a day [facility] Aspir-81 1 tablet Orally Active 81 MG Orally Once a day [facility] Clopidogrel Bisulfate 1 tablet Orally Active 75 mg Orally Once a day [facility] Glimepiride 1 tablet orally Active 2 MG orally twice a day [facility] Metoprolol Succinate ER 1 tablet Orally Active 25 MG Orally qhs [facility] Carbidopa-Levodopa ER 1 tablet Orally Active 25-100 MG Orally twice a day (bid) [facility] Nitroglycerin 1 tablet Sublingual Active 0.4 MG Sublingual once a day prn [facility] Isosorbide Mononitrate 1 tablet Orally Active 120 MG Orally Once a day [facility] Atorvastatin Calcium 1 tablet Orally Active 40 mg Orally Once a day [facility] Zoloft 1 tablet Orally Active 25 MG Orally Once a day [place] [facility] Novolin 70/30 as directed Subcutaneous Active (70-30) 100 UNIT/ML Subcutaneous 68 units q am and 52 units q pm with food [facility] Amlodipine Besylate 1 tablet Orally Active 5 MG Orally Once a day [facility] Metoprolol Succinate ER 1 tablet Orally Active 50 mg Orally Once a day in the am [facility] Linzess TAKE 1 CAPSULE BY MOUTH EVERY DAY NA Active 145 prn [facility] Sertraline HCl 1 tablet orally Active 25 MG orally once a day [place] Ranexa 1 tablet Orally Active 1000 Orally Twice a day Kol[place] [facility] Metoprolol Succinate ER 1 tablet by mouth Active 100 MG by mouth Once a day in the am [place] [facility] Toprol XL 1 tablet Orally Active 50 mg Orally Once in am [place] [facility] Gabapentin 1 tablet by mouth Active 600 MG by mouth twice a day (bid) [facility] Amlodipine Besylate 1 tablet by mouth Active 2.5 MG by mouth Once a day [place] Metoprolol Succinate ER 1 tablet by mouth Active 50 MG by mouth twice a day (bid) [place] [facility] Metoprolol Succinate ER 1 tablet by mouth Active 25 MG by mouth at noon [place] Glimepiride 1 tablet with breakfast or the first main meal of the day by mouth Active 4 mg by mouth am [place] [facility] Novolin 70/30 as directed Subcutaneous Active (70-30) 100 UNIT/ML Subcutaneous 68 units q am and 52 units q pm with food [place] [facility] Metoprolol Tartrate 1 tablet Orally No Longer Active 50 MG Orally Twice [facility] Novolin R 70/30 units Injection Active 100 UNIT/ML Injection 65 units in the morning, 45 at night [place] [facility] Metformin HCl 1 tablet with meals PO Active 500 mg PO Twice a day [facility] Ramipril 1 tablet Orally Active 10 MG Orally [facility] Gabapentin 1 tablet Orally No Longer Active 600 MG Orally three times a day (tid) as needed (prn) [facility] Metformin HCl 1 tablet with meals Orally Active 1000 mg Orally Twice a day [place] [facility] Isosorbide Mononitrate 1 tablet Orally Active 90 mg Orally Once a day [place] [facility] Isosorbide Dinitrate 1 tablet Orally Active 30 MG Orally Twice a day [place] [facility] Glimepiride 1 tablet Orally Active 2 MG Orally Once a day (MUST SEE DOCTOR BEFORE NEXT REFILL) Kaylynn [facility] Imdur TAKE 1 TABLET BY MOUTH EVERY DAY NA Active 30 MG [place] [facility] Metformin HCl 1 tablet with meals Orally Active 1000 mg Orally Twice a day [place] Carbidopa-Levodopa ER 1 tablet Orally Active 25-100 MG Orally twice a day (bid) [place] [facility] Allergies, Adverse Reactions, Alerts Substance Category Reaction Severity Reaction type Status Date Reported Comments Source N.K.D.A. Adverse Reaction Info Not Available Adverse Reaction Active 12/04/2018 [facility] Immunizations Immunization Date Given Site Status Last Updated Comments Source FLUZONE HD 65 & [place] [address] 08/14/2016 completed [facility] Results Order Name Results Value Reference Range Date Interpretation Comments Source CHEM PANEL eGFR 60 12/07/2017 Result Comment: The eGFR is calculated using the CKD-EPI formula. In most young, healthy individuals the eGFR will be >90 mL/min/1.73m2. The eGFR declines with age. An eGFR of 60-89 may be normal in some populations, particularly the elderly, for whom the CKD-EPI formula has not been extensively validated. Use of the eGFR is not recommended in the following populations:

Individuals with unstable creatinine concentrations, including patients and those with serious co-morbid conditions.

Patients with extremes in muscle mass or diet.

The data above are obtained from the National Kidney Disease Education Program (NKDEP) which additionally recommends that when the eGFR is used in patients with extremes of body mass index for purposes of drug dosing, the eGFR should be multiplied by the estimated BMI. [facility] CHEM PANEL POC Creatinine 1.2 0.5 - 1.4 12/07/2017 [facility] CHEM PANEL eGFR 28 03/16/2017 Result Comment: The eGFR is calculated using the CKD-EPI formula. In most young, healthy individuals the eGFR will be >90 mL/min/1.73m2. The eGFR declines with age. An eGFR of 60-89 may be normal in some populations, particularly the elderly, for whom the CKD-EPI formula has not been extensively validated. Use of the eGFR is not recommended in the following populations:

Individuals with unstable creatinine concentrations, including patients and those with serious co-morbid conditions.

Patients with extremes in muscle mass or diet.

The data above are obtained from the National Kidney Disease Education Program (NKDEP) which additionally recommends that when the eGFR is used in patients with extremes of body mass index for purposes of drug dosing, the eGFR should be multiplied by the estimated BMI. [facility] CHEM PANEL A/G Ratio 0.9 0.7 - 1.6 03/16/2017 [facility] CHEM PANEL Globulin 3.0 2.7 - 4.2 03/16/2017 [facility] CHEM PANEL Bili Total 0.6 0.2 - 1.3 03/16/2017 [facility] CHEM PANEL Alk Phos 70 39 - 136 03/16/2017 [facility] CHEM PANEL AST 10 0 - 37 03/16/2017 [facility] CHEM PANEL ALT 11 0 - 65 03/16/2017 [facility] CHEM PANEL Albumin Lvl 2.8 3.5 - 5.0 03/16/2017 [facility] CHEM PANEL Total Protein 5.8 6.4 - 8.4 03/16/2017 [facility] CHEM PANEL B/C Ratio 19 6 - 25 03/16/2017 [facility] CHEM PANEL Calcium Lvl 7.7 8.5 - 10.5 03/16/2017 [facility] CHEM PANEL Potassium Lvl 4.8 3.5 - 5.1 03/16/2017 [facility] CHEM PANEL Chloride Lvl 118 95 - 109 03/16/2017 [facility] CHEM PANEL CO2 23 24 - 32 03/16/2017 [facility] CHEM PANEL Sodium Lvl 144 135 - 145 03/16/2017 [facility] CHEM PANEL Creatinine Lvl 2.30 0.50 - 1.40 03/16/2017 [facility] CHEM PANEL Glucose Lvl 126 70 - 99 03/16/2017 [facility] CHEM PANEL AGAP 7.8 10.0 - 20.0 03/16/2017 [facility] CHEM PANEL BUN 44 7 - 22 03/16/2017 [facility] HEMATOLOGY WBC 8.2 3.7 - 10.4 03/16/2017 [facility] HEMATOLOGY RBC 3.48 4.70 - 6.10 03/16/2017 [facility] HEMATOLOGY Hgb 10.6 14.0 - 18.0 03/16/2017 [facility] HEMATOLOGY Hct 32.6 42.0 - 54.0 03/16/2017 [facility] HEMATOLOGY MCHC 32.7 32.0 - 36.0 03/16/2017 [facility] HEMATOLOGY RDW 14.4 11.5 - 14.5 03/16/2017 [facility] HEMATOLOGY MPV 9.7 7.4 - 10.4 03/16/2017 [facility] HEMATOLOGY Platelet 140 133 - 450 03/16/2017 [facility] HEMATOLOGY MCH 30.6 27.0 - 31.0 03/16/2017 [facility] HEMATOLOGY MCV 93.5 80.0 - 94.0 03/16/2017 [facility] URINE AND STOOL UA Color Ltyellow 03/15/2017 [facility] URINE AND STOOL UA Urobilinogen <=1.0 mg/dL 0.1 - 1.0 03/15/2017 [facility] URINE AND STOOL UA Hyal Cast 3 0 - 2 03/15/2017 [facility] URINE AND STOOL UA Bacteria Occasional /HPF None Seen /HPF 03/15/2017 [facility] URINE AND STOOL UA RBC 40 0 - 2 03/15/2017 [facility] URINE AND STOOL UA Turbidity Clear (03/15/17 2:49 PM) Clear 03/15/2017 [facility] URINE AND STOOL UA pH 5.0 5.0 - 8.0 03/15/2017 [facility] URINE AND STOOL UA Spec Grav 1.011 <=1.030 03/15/2017 [facility] URINE AND STOOL UA WBC 7 0 - 5 03/15/2017 [facility] URINE AND STOOL UA Sq Epi Occasional /LPF Few /LPF 03/15/2017 [facility] URINE AND STOOL UA Leuk Est Trace *ABN* (03/15/17 2:49 PM) Negative 03/15/2017 [facility] URINE AND STOOL UA Nitrite Negative (03/15/17 2:49 PM) Negative 03/15/2017 [facility] URINE AND STOOL UA Blood Large *ABN* (03/15/17 2:49 PM) Negative 03/15/2017 [facility] URINE AND STOOL UA Bili Negative *NA* (03/15/17 2:49 PM) Negative 03/15/2017 [facility] URINE AND STOOL UA Glucose Negative mg/dL Negative mg/dL 03/15/2017 [facility] URINE AND STOOL UA Protein Negative mg/dL Negative mg/dL 03/15/2017 [facility] URINE AND STOOL UA Ketones Negative mg/dL Negative mg/dL 03/15/2017 [facility] URINE CHEM U Sodium 27 03/15/2017 [facility] URINE CHEM U Eos None Seen (03/15/17 2:49 PM) None Seen 03/15/2017 [facility] URINE CHEM U Alb/Crea 40.4 <=30.0 mcg/mg creat 03/15/2017 [facility] URINE CHEM U Microalb 60.6 03/15/2017 [facility] URINE CHEM U Creatinine 150.00 03/15/2017 [facility] URINE CHEM U Prot/Creat 0.2 03/15/2017 [facility] URINE CHEM U Protein 31.0 03/15/2017 [facility] URINE CHEM U Creatinine 150.00 03/15/2017 [facility] CHEM PANEL eGFR 16 03/15/2017 Result Comment: The eGFR is calculated using the CKD-EPI formula. In most young, healthy individuals the eGFR will be >90 mL/min/1.73m2. The eGFR declines with age. An eGFR of 60-89 may be normal in some populations, particularly the elderly, for whom the CKD-EPI formula has not been extensively validated. Use of the eGFR is not recommended in the following populations:

Individuals with unstable creatinine concentrations, including patients and those with serious co-morbid conditions.

Patients with extremes in muscle mass or diet.

The data above are obtained from the National Kidney Disease Education Program (NKDEP) which additionally recommends that when the eGFR is used in patients with extremes of body mass index for purposes of drug dosing, the eGFR should be multiplied by the estimated BMI. [facility] CHEM PANEL Glucose Lvl 89 70 - 99 03/15/2017 [facility] CHEM PANEL BUN 58 7 - 22 03/15/2017 [facility] CHEM PANEL Creatinine Lvl 3.70 0.50 - 1.40 03/15/2017 [facility] CHEM PANEL Sodium Lvl 139 135 - 145 03/15/2017 [facility] CHEM PANEL CO2 16 24 - 32 03/15/2017 [facility] CHEM PANEL Chloride Lvl 114 95 - 109 03/15/2017 [facility] CHEM PANEL Potassium Lvl 5.3 3.5 - 5.1 03/15/2017 [facility] CHEM PANEL Albumin Lvl 3.3 3.5 - 5.0 03/15/2017 [facility] CHEM PANEL AGAP 14.3 10.0 - 20.0 03/15/2017 [facility] CHEM PANEL Total Protein 6.2 6.4 - 8.4 03/15/2017 [facility] CHEM PANEL B/C Ratio 16 6 - 25 03/15/2017 [facility] CHEM PANEL Calcium Lvl 7.7 8.5 - 10.5 03/15/2017 [facility] CHEM PANEL ALT 17 0 - 65 03/15/2017 [facility] CHEM PANEL A/G Ratio 1.1 0.7 - 1.6 03/15/2017 [facility] CHEM PANEL Globulin 2.9 2.7 - 4.2 03/15/2017 [facility] CHEM PANEL Bili Total 0.4 0.2 - 1.3 03/15/2017 [facility] CHEM PANEL Alk Phos 79 39 - 136 03/15/2017 [facility] CHEM PANEL AST 10 0 - 37 03/15/2017 [facility] CHEM PANEL Lipase Lvl 656 73 - 393 03/15/2017 [facility] URINE AND STOOL UA Color Diana 03/15/2017 [facility] URINE AND STOOL UA Urobilinogen <=1.0 mg/dL 0.1 - 1.0 03/15/2017 [facility] URINE AND STOOL UA [place] Yeast Occasional /HPF None Seen /HPF 03/15/2017 [facility] URINE AND STOOL UA RBC 1 0 - 2 03/15/2017 [facility] URINE AND STOOL UA Bacteria Occasional /HPF None Seen /HPF 03/15/2017 [facility] URINE AND STOOL UA WBC 4 0 - 5 03/15/2017 [facility] URINE AND STOOL UA Hyal Cast 15 0 - 2 03/15/2017 [facility] URINE AND STOOL UA Leuk Est Trace *ABN* (03/15/17 12:45 AM) Negative 03/15/2017 [facility] URINE AND STOOL UA Blood Small *ABN* (03/15/17 12:45 AM) Negative 03/15/2017 [facility] URINE AND STOOL UA Sq Epi Occasional /LPF Few /LPF 03/15/2017 [facility] URINE AND STOOL UA Nitrite Negative (03/15/17 12:45 AM) Negative 03/15/2017 [facility] URINE AND STOOL UA Ketones Negative mg/dL Negative mg/dL 03/15/2017 [facility] URINE AND STOOL UA Bili Negative *NA* (03/15/17 12:45 AM) Negative 03/15/2017 [facility] URINE AND STOOL UA Glucose Negative mg/dL Negative mg/dL 03/15/2017 [facility] URINE AND STOOL UA Protein 30 mg/dL Negative mg/dL 03/15/2017 [facility] URINE AND STOOL UA pH 5.0 5.0 - 8.0 03/15/2017 [facility] URINE AND STOOL UA Spec Grav 1.018 <=1.030 03/15/2017 [facility] URINE AND STOOL UA Turbidity Clear (03/15/17 12:45 AM) Clear 03/15/2017 [facility] CARDIAC ENZYMES CK MB Index 0.7 0.0 - 2.5 03/15/2017 [facility] CARDIAC ENZYMES BNP 27 <=100 pg/mL 03/15/2017 [facility] CARDIAC ENZYMES Troponin-I <0.02 0.00 - 0.40 03/15/2017 [facility] CARDIAC ENZYMES CK MB 1.4 0.5 - 3.6 03/15/2017 [facility] CARDIAC ENZYMES Total CK 197 12 - 191 03/15/2017 [facility] CHEM PANEL Magnesium Lvl 1.7 1.8 - 2.4 03/15/2017 [facility] CHEM PANEL Lipase Lvl 691 73 - 393 03/15/2017 [facility] CHEM PANEL eGFR 11 03/15/2017 Result Comment: The eGFR is calculated using the CKD-EPI formula. In most young, healthy individuals the eGFR will be >90 mL/min/1.73m2. The eGFR declines with age. An eGFR of 60-89 may be normal in some populations, particularly the elderly, for whom the CKD-EPI formula has not been extensively validated. Use of the eGFR is not recommended in the following populations:

Individuals with unstable creatinine concentrations, including patients and those with serious co-morbid conditions.

Patients with extremes in muscle mass or diet.

The data above are obtained from the National Kidney Disease Education Program (NKDEP) which additionally recommends that when the eGFR is used in patients with extremes of body mass index for purposes of drug dosing, the eGFR should be multiplied by the estimated BMI. [facility] CHEM PANEL A/G Ratio 1.0 0.7 - 1.6 03/15/2017 [facility] CHEM PANEL Globulin 4.0 2.7 - 4.2 03/15/2017 [facility] CHEM PANEL B/C Ratio 14 6 - 25 03/15/2017 [facility] CHEM PANEL Alk Phos 94 39 - 136 03/15/2017 [facility] CHEM PANEL ALT 21 0 - 65 03/15/2017 [facility] CHEM PANEL AST 10 0 - 37 03/15/2017 [facility] CHEM PANEL CO2 21 24 - 32 03/15/2017 [facility] CHEM PANEL Chloride Lvl 108 95 - 109 03/15/2017 [facility] CHEM PANEL Potassium Lvl 6.0 3.5 - 5.1 03/15/2017 [facility] CHEM PANEL AGAP 13.0 10.0 - 20.0 03/15/2017 [facility] CHEM PANEL Bili Total 0.3 0.2 - 1.3 03/15/2017 [facility] CHEM PANEL Albumin Lvl 4.1 3.5 - 5.0 03/15/2017 [facility] CHEM PANEL Total Protein 8.1 6.4 - 8.4 03/15/2017 [facility] CHEM PANEL Calcium Lvl 9.1 8.5 - 10.5 03/15/2017 [facility] CHEM PANEL Sodium Lvl 136 135 - 145 03/15/2017 [facility] CHEM PANEL Creatinine Lvl 4.80 0.50 - 1.40 03/15/2017 [facility] CHEM PANEL BUN 67 7 - 22 03/15/2017 [facility] CHEM PANEL Glucose Lvl 142 70 - 99 03/15/2017 [facility] HEMATOLOGY Eosinophils 0.9 0.0 - 4.0 03/15/2017 [facility] HEMATOLOGY Basophils 0.3 0.0 - 1.0 03/15/2017 [facility] HEMATOLOGY Segs-Bands # 18.2 1.5 - 8.1 03/15/2017 [facility] HEMATOLOGY Lymphocytes # 1.6 1.0 - 5.5 03/15/2017 [facility] HEMATOLOGY Monocytes 5.8 2.0 - 12.0 03/15/2017 [facility] HEMATOLOGY Segs 85.3 45.0 - 75.0 03/15/2017 [facility] HEMATOLOGY Lymphocytes 7.7 20.0 - 40.0 03/15/2017 [facility] HEMATOLOGY Monocytes # 1.2 0.0 - 0.8 03/15/2017 [facility] HEMATOLOGY Eosinophils # 0.2 0.0 - 0.5 03/15/2017 [facility] HEMATOLOGY Basophils # 0.1 0.0 - 0.2 03/15/2017 [facility] HEMATOLOGY RDW 14.3 11.5 - 14.5 03/15/2017 [facility] HEMATOLOGY Platelet 214 133 - 450 03/15/2017 [facility] HEMATOLOGY MCHC 32.0 32.0 - 36.0 03/15/2017 [facility] HEMATOLOGY MCH 29.9 27.0 - 31.0 03/15/2017 [facility] HEMATOLOGY MPV 10.2 7.4 - 10.4 03/15/2017 [facility] HEMATOLOGY RBC 4.24 4.70 - 6.10 03/15/2017 [facility] HEMATOLOGY Hgb 12.7 14.0 - 18.0 03/15/2017 [facility] Hct 39.7 42.0 - 54.0 03/15/2017 [facility] HEMATOLOGY MCV 93.5 80.0 - 94.0 03/15/2017 [facility] HEMATOLOGY WBC 21.3 3.7 - 10.4 03/15/2017 [facility] HEMATOLOGY PTT 33.2 22.9 - 35.8 03/15/2017 [facility] HEMATOLOGY PT 13.7 12.0 - 14.7 03/15/2017 [facility] HEMATOLOGY INR 1.03 0.85 - 1.17 03/15/2017 [facility] CHEM PANEL eGFR 83 02/05/2017 Result Comment: The eGFR is calculated using the CKD-EPI formula. In most young, healthy individuals the eGFR will be >90 mL/min/1.73m2. The eGFR declines with age. An eGFR of 60-89 may be normal in some populations, particularly the elderly, for whom the CKD-EPI formula has not been extensively validated. Use of the eGFR is not recommended in the following populations:

Individuals with unstable creatinine concentrations, including patients and those with serious co-morbid conditions.

Patients with extremes in muscle mass or diet.

The data above are obtained from the National Kidney Disease Education Program (NKDEP) which additionally recommends that when the eGFR is used in patients with extremes of body mass index for purposes of drug dosing, the eGFR should be multiplied by the estimated BMI. [facility] CHEM PANEL Creatinine Lvl 0.93 0.50 - 1.40 02/05/2017 [facility] CHEM PANEL Sodium Lvl 144 135 - 145 02/05/2017 [facility] CHEM PANEL Potassium Lvl 4.4 3.5 - 5.1 02/05/2017 [facility] CHEM PANEL Glucose Lvl 67 70 - 99 02/05/2017 [facility] CHEM PANEL BUN 20 7 - 22 02/05/2017 [facility] CHEM PANEL Calcium Lvl 8.5 8.5 - 10.5 02/05/2017 [facility] CHEM PANEL Chloride Lvl 111 95 - 109 02/05/2017 [facility] CHEM PANEL CO2 28 24 - 32 02/05/2017 [facility] CHEM PANEL AGAP 9.4 10.0 - 20.0 02/05/2017 [facility] HEMATOLOGY RDW 13.4 11.5 - 14.5 02/05/2017 [facility] HEMATOLOGY Platelet 151 133 - 450 02/05/2017 [facility] HEMATOLOGY MPV 9.7 7.4 - 10.4 02/05/2017 [facility] HEMATOLOGY MCH 30.0 27.0 - 31.0 02/05/2017 [facility] MCHC 32.9 32.0 - 36.0 02/05/2017 [facility] HEMATOLOGY WBC 6.9 3.7 - 10.4 02/05/2017 [facility] HEMATOLOGY RBC 3.46 4.70 - 6.10 02/05/2017 [facility] [facility] HEMATOLOGY Hgb 10.4 14.0 - 18.0 02/05/2017 [facility] HEMATOLOGY Hct 31.5 42.0 - 54.0 02/05/2017 [facility] HEMATOLOGY MCV 91.2 80.0 - 94.0 02/05/2017 [facility] HEMATOLOGY Lymphocytes # 2.1 1.0 - 5.5 02/05/2017 [facility] HEMATOLOGY Segs-Bands # 3.9 1.5 - 8.1 02/05/2017 [facility] HEMATOLOGY Monocytes # 0.5 0.0 - 0.8 02/05/2017 [facility] HEMATOLOGY Basophils 0.8 0.0 - 1.0 02/05/2017 [facility] HEMATOLOGY Basophils # 0.1 0.0 - 0.2 02/05/2017 [facility] HEMATOLOGY Eosinophils 5.3 0.0 - 4.0 02/05/2017 [facility] HEMATOLOGY Eosinophils # 0.4 0.0 - 0.5 02/05/2017 [facility] HEMATOLOGY Monocytes 7.3 2.0 - 12.0 02/05/2017 [facility] HEMATOLOGY Lymphocytes 30.8 20.0 - 40.0 02/05/2017 [facility] HEMATOLOGY Segs 55.8 45.0 - 75.0 02/05/2017 [facility] CARDIAC ENZYMES Troponin-I <0.02 0.00 - 0.40 02/04/2017 [facility] CARDIAC ENZYMES Troponin-I <0.02 0.00 - 0.40 02/04/2017 [facility] URINE AND STOOL UA Bacteria Occasional /HPF None Seen /HPF 02/04/2017 [facility] URINE AND STOOL UA RBC <1 0 - 2 02/04/2017 [facility] URINE AND STOOL UA WBC 1 0 - 5 02/04/2017 [facility] URINE AND STOOL UA Sq Epi None Seen 02/04/2017 [facility] URINE AND STOOL UA Hyal Cast 3 0 - 2 02/04/2017 [facility] URINE AND STOOL UA Nitrite Negative (02/04/17 3:57 AM) Negative 02/04/2017 [facility] URINE AND STOOL UA Blood Negative (02/04/17 3:57 AM) Negative 02/04/2017 [facility] URINE AND STOOL UA Bili Negative *NA* (02/04/17 3:57 AM) Negative 02/04/2017 [facility] URINE AND STOOL UA Ketones Negative mg/dL Negative mg/dL 02/04/2017 [facility] URINE AND STOOL UA Leuk Est Negative (02/04/17 3:57 AM) Negative 02/04/2017 [facility] URINE AND STOOL UA Color Ltyellow 02/04/2017 [facility] URINE AND STOOL UA Urobilinogen <=1.0 mg/dL 0.1 - 1.0 02/04/2017 [facility] URINE AND STOOL UA pH 5.0 5.0 - 8.0 02/04/2017 [facility] URINE AND STOOL UA Spec Grav 1.015 <=1.030 02/04/2017 [facility] URINE AND STOOL UA Glucose 50 mg/dL Negative mg/dL 02/04/2017 [facility] URINE AND STOOL UA Protein Negative mg/dL Negative mg/dL 02/04/2017 [facility] URINE AND STOOL UA Turbidity Clear (02/04/17 3:57 AM) Clear 02/04/2017 [facility] CARDIAC ENZYMES BNP 51 <=100 pg/mL 02/04/2017 [facility] CARDIAC ENZYMES Troponin-I <0.02 0.00 - 0.40 02/04/2017 [facility] CARDIAC ENZYMES CK MB 1.8 0.5 - 3.6 02/04/2017 [facility] CARDIAC ENZYMES Total CK 224 12 - 191 02/04/2017 [facility] CARDIAC ENZYMES CK MB Index 0.8 0.0 - 2.5 02/04/2017 [facility] ELECTROLYTES Sodium Lvl 144 135 - 145 02/04/2017 [facility] ELECTROLYTES Creatinine Lvl 1.60 0.50 - 1.40 02/04/2017 [facility] ELECTROLYTES BUN 42 7 - 22 02/04/2017 [facility] ELECTROLYTES Glucose Lvl 184 70 - 99 02/04/2017 [facility] ELECTROLYTES eGFR 43 02/04/2017 Result Comment: The eGFR is calculated using the CKD-EPI formula. In most young, healthy individuals the eGFR will be >90 mL/min/1.73m2. The eGFR declines with age. An eGFR of 60-89 may be normal in some populations, particularly the elderly, for whom the CKD-EPI formula has not been extensively validated. Use of the eGFR is not recommended in the following populations:

Individuals with unstable creatinine concentrations, including patients and those with serious co-morbid conditions.

Patients with extremes in muscle mass or diet.

The data above are obtained from the National Kidney Disease Education Program (NKDEP) which additionally recommends that when the eGFR is used in patients with extremes of body mass index for purposes of drug dosing, the eGFR should be multiplied by the estimated BMI. [facility] ELECTROLYTES Total Protein 6.9 6.4 - 8.4 02/04/2017 [facility] ELECTROLYTES Calcium Lvl 9.0 8.5 - 10.5 02/04/2017 [facility] ELECTROLYTES CO2 29 24 - 32 02/04/2017 [facility] ELECTROLYTES Chloride Lvl 108 95 - 109 02/04/2017 [facility] ELECTROLYTES Potassium Lvl 4.7 3.5 - 5.1 02/04/2017 [facility] ELECTROLYTES Bili Total 0.2 0.2 - 1.3 02/04/2017 [facility] ELECTROLYTES Alk Phos 100 39 - 136 02/04/2017 [facility] ELECTROLYTES AST 12 0 - 37 02/04/2017 [facility] ELECTROLYTES ALT 16 0 - 65 02/04/2017 [facility] ELECTROLYTES Albumin Lvl 3.5 3.5 - 5.0 02/04/2017 [facility] ELECTROLYTES A/G Ratio 1.0 0.7 - 1.6 02/04/2017 [facility] ELECTROLYTES Globulin 3.4 2.7 - 4.2 02/04/2017 [facility] ELECTROLYTES B/C Ratio 26 6 - 25 02/04/2017 [facility] ELECTROLYTES AGAP 11.7 10.0 - 20.0 02/04/2017 [facility] HEMATOLOGY INR 0.90 0.85 - 1.17 02/04/2017 [facility] HEMATOLOGY PT 12.3 12.0 - 14.7 02/04/2017 [facility] HEMATOLOGY PTT 35.9 22.9 - 35.8 02/04/2017 [facility] MPV 10.6 7.4 - 10.4 02/04/2017 [facility] HEMATOLOGY WBC 8.5 3.7 - 10.4 02/04/2017 [facility] HEMATOLOGY Hct 35.1 42.0 - 54.0 02/04/2017 [facility] MCV 91.7 80.0 - 94.0 02/04/2017 [facility] MCH 30.7 27.0 - 31.0 02/04/2017 [facility] RBC 3.82 4.70 - 6.10 02/04/2017 [facility] Hgb 11.7 14.0 - 18.0 02/04/2017 [facility] MCHC 33.4 32.0 - 36.0 02/04/2017 [facility] RDW 13.5 11.5 - 14.5 02/04/2017 [facility] Platelet 171 133 - 450 02/04/2017 [facility] Eosinophils # 0.3 0.0 - 0.5 02/04/2017 [facility] Monocytes # 0.5 0.0 - 0.8 02/04/2017 [facility] HEMATOLOGY Segs-Bands # 5.2 1.5 - 8.1 02/04/2017 [facility] Basophils # 0.1 0.0 - 0.2 02/04/2017 [facility] Basophils 0.7 0.0 - 1.0 02/04/2017 [facility] Lymphocytes # 2.3 1.0 - 5.5 02/04/2017 [facility] Monocytes 6.4 2.0 - 12.0 02/04/2017 [facility] Eosinophils 3.9 0.0 - 4.0 02/04/2017 [facility] Lymphocytes 27.6 20.0 - 40.0 02/04/2017 [facility] HEMATOLOGY Segs 61.4 45.0 - 75.0 02/04/2017 [facility] CHEM PANEL Magnesium Lvl 1.9 1.8 - 2.4 01/11/2016 [facility] CHEM PANEL Phosphorus 3.6 2.5 - 4.5 01/11/2016 [facility] ELECTROLYTES AGAP 15.0 10.0 - 20.0 01/11/2016 [facility] ELECTROLYTES eGFR 91 01/11/2016 Result Comment: The eGFR is calculated using the CKD-EPI formula. In most young, healthy individuals the eGFR will be >90 mL/min/1.73m2. The eGFR declines with age. An eGFR of 60-89 may be normal in some populations, particularly the elderly, for whom the CKD-EPI formula has not been extensively validated. Use of the eGFR is not recommended in the following populations:

Individuals with unstable creatinine concentrations, including patients and those with serious co-morbid conditions.

Patients with extremes in muscle mass or diet.

The data above are obtained from the National Kidney Disease Education Program (NKDEP) which additionally recommends that when the eGFR is used in patients with extremes of body mass index for purposes of drug dosing, the eGFR should be multiplied by the estimated BMI. [facility] ELECTROLYTES Sodium Lvl 143 135 - 145 01/11/2016 [facility] ELECTROLYTES Potassium Lvl 4.0 3.5 - 5.1 01/11/2016 [facility] ELECTROLYTES Chloride Lvl 108 95 - 109 01/11/2016 [facility] ELECTROLYTES CO2 24 24 - 32 01/11/2016 [facility] ELECTROLYTES Calcium Lvl 8.7 8.5 - 10.5 01/11/2016 [facility] ELECTROLYTES BUN 23 7 - 22 01/11/2016 [facility] ELECTROLYTES Creatinine Lvl 0.80 0.50 - 1.40 01/11/2016 [facility] ELECTROLYTES Glucose Lvl 72 70 - 99 01/11/2016 [facility] HEMATOLOGY Eosinophils # 0.3 0.0 - 0.5 01/11/2016 [facility] HEMATOLOGY Basophils # 0.1 0.0 - 0.2 01/11/2016 [facility] HEMATOLOGY Segs 59.7 45.0 - 75.0 01/11/2016 [facility] HEMATOLOGY Lymphocytes 27.5 20.0 - 40.0 01/11/2016 [facility] HEMATOLOGY Monocytes 7.6 2.0 - 12.0 01/11/2016 [facility] HEMATOLOGY Eosinophils 4.5 0.0 - 4.0 01/11/2016 [facility] HEMATOLOGY Basophils 0.7 0.0 - 1.0 01/11/2016 [facility] HEMATOLOGY Monocytes # 0.6 0.0 - 0.8 01/11/2016 [facility] HEMATOLOGY Segs-Bands # 4.4 1.5 - 8.1 01/11/2016 [facility] HEMATOLOGY Lymphocytes # 2.0 1.0 - 5.5 01/11/2016 [facility] HEMATOLOGY RBC 4.10 4.70 - 6.10 01/11/2016 [facility] HEMATOLOGY WBC 7.4 3.7 - 10.4 01/11/2016 [facility] HEMATOLOGY Hct 37.2 42.0 - 54.0 01/11/2016 [facility] HEMATOLOGY MCHC 33.3 32.0 - 36.0 01/11/2016 [facility] HEMATOLOGY MCH 30.2 27.0 - 31.0 01/11/2016 [facility] HEMATOLOGY RDW 12.8 11.5 - 14.5 01/11/2016 [facility] HEMATOLOGY MCV 90.8 80.0 - 94.0 01/11/2016 [facility] HEMATOLOGY Platelet 153 133 - 450 01/11/2016 [facility] HEMATOLOGY MPV 10.2 7.4 - 10.4 01/11/2016 [facility] HEMATOLOGY Hgb 12.4 14.0 - 18.0 01/11/2016 [facility] DRUG SCREEN U Benzodia Scr Negative *NA* (01/10/16 10:01 AM) Negative 01/10/2016 [facility] DRUG SCREEN U Cocaine Scr Negative *NA* (01/10/16 10:01 AM) Negative 01/10/2016 [facility] DRUG SCREEN UDS Note See Note *NA* (01/10/16 10:01 AM) 01/10/2016 [facility] DRUG SCREEN U Propoxyph Scr Negative *NA* (01/10/16 10:01 AM) Negative 01/10/2016 [facility] DRUG SCREEN U Cannab Scr Negative *NA* (01/10/16 10:01 AM) Negative 01/10/2016 [facility] DRUG SCREEN U Opiate Scr Negative *NA* (01/10/16 10:01 AM) Negative 01/10/2016 [facility] DRUG SCREEN U Phencyc Scr Negative *NA* (01/10/16 10:01 AM) Negative 01/10/2016 [facility] DRUG SCREEN U Methadone Scr Negative *NA* (01/10/16 10:01 AM) Negative 01/10/2016 [facility] DRUG SCREEN U Amph Scr Negative *NA* (01/10/16 10:01 AM) Negative 01/10/2016 [facility] DRUG SCREEN U Kristin Scr Negative *NA* (01/10/16 10:01 AM) Negative 01/10/2016 [facility] URINE AND STOOL UA Sq Epi None Seen (01/10/16 5:27 AM) Few 01/10/2016 [facility] URINE AND STOOL Micro? Performed (01/10/16 5:27 AM) 01/10/2016 [facility] URINE AND STOOL UA WBC None Seen (01/10/16 5:27 AM) None Seen 01/10/2016 [facility] URINE AND STOOL UA RBC None Seen (01/10/16 5:27 AM) 0 - 2 01/10/2016 [facility] URINE AND STOOL UA Blood Negative (01/10/16 5:27 AM) Negative 01/10/2016 [facility] URINE AND STOOL UA Bili Negative *NA* (01/10/16 5:27 AM) Negative 01/10/2016 [facility] URINE AND STOOL UA Urobilinogen 0.2 0.1 - 1.0 01/10/2016 [facility] URINE AND STOOL UA Nitrite Negative (01/10/16 5:27 AM) Negative 01/10/2016 [facility] URINE AND STOOL UA Leuk Est Negative (01/10/16 5:27 AM) Negative 01/10/2016 [facility] URINE AND STOOL UA Spec Grav 1.015 <=1.030 01/10/2016 [facility] URINE AND STOOL UA Color Yellow *NA* (01/10/16 5:27 AM) Yellow 01/10/2016 [facility] URINE AND STOOL UA Turbidity Clear (01/10/16 5:27 AM) Clear 01/10/2016 [facility] URINE AND STOOL UA pH 5.5 5.0 - 8.0 01/10/2016 [facility] URINE AND STOOL UA Glucose Negative mg/dL Negative mg/dL 01/10/2016 [facility] URINE AND STOOL UA Protein Negative mg/dL Negative mg/dL 01/10/2016 [facility] URINE AND STOOL UA Ketones Negative mg/dL Negative mg/dL 01/10/2016 [facility] CARDIAC ENZYMES BNP 10 <=100 pg/mL 01/10/2016 [facility] CHEM PANEL Magnesium Lvl 1.7 1.8 - 2.4 01/10/2016 [facility] CHEM PANEL Bili Indirect 0.1 0.0 - 1.0 01/10/2016 [facility] CHEM PANEL Bili Total 0.2 0.2 - 1.3 01/10/2016 [facility] CHEM PANEL Bili Direct 0.1 0.0 - 0.3 01/10/2016 [facility] CHEM PANEL Phosphorus 4.2 2.5 - 4.5 01/10/2016 [facility] CHEM PANEL eGFR 78 01/10/2016 Result Comment: The eGFR is calculated using the CKD-EPI formula. In most young, healthy individuals the eGFR will be >90 mL/min/1.73m2. The eGFR declines with age. An eGFR of 60-89 may be normal in some populations, particularly the elderly, for whom the CKD-EPI formula has not been extensively validated. Use of the eGFR is not recommended in the following populations:

Individuals with unstable creatinine concentrations, including patients and those with serious co-morbid conditions.

Patients with extremes in muscle mass or diet.

The data above are obtained from the National Kidney Disease Education Program (NKDEP) which additionally recommends that when the eGFR is used in patients with extremes of body mass index for purposes of drug dosing, the eGFR should be multiplied by the estimated BMI. [facility] CHEM PANEL Calcium Lvl 8.6 8.5 - 10.5 01/10/2016 [facility] CHEM PANEL CO2 24 24 - 32 01/10/2016 [facility] CHEM PANEL Chloride Lvl 108 95 - 109 01/10/2016 [facility] CHEM PANEL BUN 32 7 - 22 01/10/2016 [facility] CHEM PANEL Glucose Lvl 88 70 - 99 01/10/2016 [facility] CHEM PANEL Potassium Lvl 4.2 3.5 - 5.1 01/10/2016 [facility] CHEM PANEL Sodium Lvl 142 135 - 145 01/10/2016 [facility] CHEM PANEL Creatinine Lvl 0.98 0.50 - 1.40 01/10/2016 [facility] CHEM PANEL AGAP 14.2 10.0 - 20.0 01/10/2016 [facility] HEMATOLOGY Hgb 11.2 14.0 - 18.0 01/10/2016 [facility] LIPIDS CHD Risk 3.32 4.00 - 7.30 01/10/2016 [facility] LIPIDS VLDL 21 01/10/2016 [facility] LIPIDS LDL (Calculated) 67 <=99 mg/dL 01/10/2016 [facility] LIPIDS Trig 107 <=149 mg/dL 01/10/2016 [facility] LIPIDS Chol 126 <=199 mg/dL 01/10/2016 [facility] LIPIDS HDL 38 >=61 mg/dL 01/10/2016 [facility] SPECIAL CHEMISTRY Hgb A1C 7.2 <=5.6 % 01/10/2016 [facility] CARDIAC ENZYMES Total CK 243 12 - 191 01/10/2016 [facility] CARDIAC ENZYMES Troponin-I <0.02 0.00 - 0.40 01/10/2016 [facility] CARDIAC ENZYMES CK MB Index 0.5 0.0 - 2.5 01/10/2016 [facility] CARDIAC ENZYMES CK MB 1.1 0.5 - 3.6 01/10/2016 [facility] CHEM PANEL ALT 25 0 - 65 01/10/2016 [facility] CHEM PANEL Alk Phos 62 39 - 136 01/10/2016 [facility] CHEM PANEL AST 17 0 - 37 01/10/2016 [facility] CHEM PANEL Total Protein 6.4 6.4 - 8.4 01/10/2016 [facility] CHEM PANEL Albumin Lvl 3.4 3.5 - 5.0 01/10/2016 [facility] CHEM PANEL Globulin 3.0 2.0 - 4.0 01/10/2016 [facility] CHEM PANEL A/G Ratio 1.1 0.7 - 1.6 01/10/2016 [facility] HEMATOLOGY INR 0.95 0.85 - 1.17 01/10/2016 [facility] HEMATOLOGY PT 13.0 12.0 - 14.7 01/10/2016 [facility] HEMATOLOGY PTT 35.9 22.9 - 35.8 01/10/2016 [facility] CARDIAC ENZYMES Troponin-I <0.02 0.00 - 0.40 01/10/2016 [facility] CARDIAC ENZYMES CK MB 1.0 0.5 - 3.6 01/10/2016 [facility] CARDIAC ENZYMES Total CK 303 12 - 191 01/10/2016 [facility] CARDIAC ENZYMES CK MB Index 0.3 0.0 - 2.5 01/10/2016 [facility] CHEM PANEL Bili Total 0.3 0.2 - 1.3 01/10/2016 [facility] CHEM PANEL A/G Ratio 1.0 0.7 - 1.6 01/10/2016 [facility] CHEM PANEL Globulin 3.8 2.0 - 4.0 01/10/2016 [facility] CHEM PANEL Alk Phos 80 39 - 136 01/10/2016 [facility] CHEM PANEL ALT 29 0 - 65 01/10/2016 [facility] CHEM PANEL Albumin Lvl 3.9 3.5 - 5.0 01/10/2016 [facility] CHEM PANEL AST 19 0 - 37 01/10/2016 [facility] CHEM PANEL Total Protein 7.7 6.4 - 8.4 01/10/2016 [facility] CHEM PANEL eGFR 62 01/10/2016 Result Comment: The eGFR is calculated using the CKD-EPI formula. In most young, healthy individuals the eGFR will be >90 mL/min/1.73m2. The eGFR declines with age. An eGFR of 60-89 may be normal in some populations, particularly the elderly, for whom the CKD-EPI formula has not been extensively validated. Use of the eGFR is not recommended in the following populations:

Individuals with unstable creatinine concentrations, including patients and those with serious co-morbid conditions.

Patients with extremes in muscle mass or diet.

The data above are obtained from the National Kidney Disease Education Program (NKDEP) which additionally recommends that when the eGFR is used in patients with extremes of body mass index for purposes of drug dosing, the eGFR should be multiplied by the estimated BMI. [facility] CHEM PANEL Calcium Lvl 8.9 8.5 - 10.5 01/10/2016 [facility] CHEM PANEL CO2 26 24 - 32 01/10/2016 [facility] CHEM PANEL Chloride Lvl 103 95 - 109 01/10/2016 [facility] CHEM PANEL Sodium Lvl 141 135 - 145 01/10/2016 [facility] CHEM PANEL Potassium Lvl 4.4 3.5 - 5.1 01/10/2016 [facility] CHEM PANEL B/C Ratio 30 6 - 25 01/10/2016 [facility] CHEM PANEL AGAP 16.4 10.0 - 20.0 01/10/2016 [facility] CHEM PANEL Creatinine Lvl 1.19 0.50 - 1.40 01/10/2016 [facility] CHEM PANEL BUN 36 7 - 22 01/10/2016 [facility] CHEM PANEL Glucose Lvl 91 70 - 99 01/10/2016 [facility] HEMATOLOGY MPV 10.2 7.4 - 10.4 01/10/2016 [facility] HEMATOLOGY MCV 92.4 80.0 - 94.0 01/10/2016 [facility] HEMATOLOGY RDW 13.2 11.5 - 14.5 01/10/2016 [facility] HEMATOLOGY Platelet 182 133 - 450 01/10/2016 [facility] HEMATOLOGY MCH 30.5 27.0 - 31.0 01/10/2016 [facility] HEMATOLOGY MCHC 32.9 32.0 - 36.0 01/10/2016 [facility] HEMATOLOGY RBC 4.21 4.70 - 6.10 01/10/2016 [facility] HEMATOLOGY WBC 9.0 3.7 - 10.4 01/10/2016 [facility] HEMATOLOGY Hct 38.9 42.0 - 54.0 01/10/2016 [facility] HEMATOLOGY Hgb 12.8 14.0 - 18.0 01/10/2016 [facility] HEMATOLOGY Segs-Bands # 5.4 1.5 - 8.1 01/10/2016 [facility] HEMATOLOGY Eosinophils 2.9 0.0 - 4.0 01/10/2016 [facility] HEMATOLOGY Basophils 1.7 0.0 - 1.0 01/10/2016 [facility] HEMATOLOGY Monocytes 7.5 2.0 - 12.0 01/10/2016 [facility] HEMATOLOGY Lymphocytes # 2.6 1.0 - 5.5 01/10/2016 [facility] HEMATOLOGY Segs 59.5 45.0 - 75.0 01/10/2016 [facility] HEMATOLOGY Lymphocytes 28.4 20.0 - 40.0 01/10/2016 [facility] HEMATOLOGY Eosinophils # 0.3 0.0 - 0.5 01/10/2016 [facility] HEMATOLOGY Basophils # 0.2 0.0 - 0.2 01/10/2016 [facility] HEMATOLOGY Monocytes # 0.7 0.0 - 0.8 01/10/2016 [facility] CARDIAC ENZYMES CK MB Index 1.3 0.0 - 2.5 11/11/2015 [facility] CARDIAC ENZYMES CK MB 4.0 0.5 - 3.6 11/11/2015 [facility] CARDIAC ENZYMES Troponin-I 0.91 0.00 - 0.40 11/11/2015 Result Comment: Critical Result(s) called to bebe hinojosa at 11/11/2015 02:09 by [email or web address]. Read back OK. [facility] CARDIAC ENZYMES Total CK 304 12 - 191 11/11/2015 [facility] CARDIAC ENZYMES Total CK 304 12 - 191 11/11/2015 [facility] HEMATOLOGY PTT 36.5 22.9 - 35.8 11/11/2015 [facility] HEMATOLOGY PT 13.2 12.0 - 14.7 11/11/2015 [facility] HEMATOLOGY INR 0.97 0.85 - 1.17 11/11/2015 [facility] CARDIAC ENZYMES Troponin-I 0.52 0.00 - 0.40 11/11/2015 Result Comment: Critical Result(s) called to kieran hinojosa at 11/10/2015 20:59 by [email or web address]. Read back OK. [facility] CARDIAC ENZYMES CK MB Index 0.7 0.0 - 2.5 11/10/2015 [facility] CARDIAC ENZYMES Troponin-I 0.04 0.00 - 0.40 11/10/2015 [facility] CARDIAC ENZYMES CK MB 2.6 0.5 - 3.6 11/10/2015 [facility] CARDIAC ENZYMES Total CK 356 12 - 191 11/10/2015 [facility] CHEM PANEL eGFR 94 11/10/2015 Result Comment: The eGFR is calculated using the CKD-EPI formula. In most young, healthy individuals the eGFR will be >90 mL/min/1.73m2. The eGFR declines with age. An eGFR of 60-89 may be normal in some populations, particularly the elderly, for whom the CKD-EPI formula has not been extensively validated. Use of the eGFR is not recommended in the following populations:

Individuals with unstable creatinine concentrations, including patients and those with serious co-morbid conditions.

Patients with extremes in muscle mass or diet.

The data above are obtained from the National Kidney Disease Education Program (NKDEP) which additionally recommends that when the eGFR is used in patients with extremes of body mass index for purposes of drug dosing, the eGFR should be multiplied by the estimated BMI. [facility] CHEM PANEL AGAP 17.5 10.0 - 20.0 11/10/2015 [facility] CHEM PANEL Bili Total 0.3 0.2 - 1.3 11/10/2015 [facility] CHEM PANEL Alk Phos 85 39 - 136 11/10/2015 [facility] CHEM PANEL B/C Ratio 19 6 - 25 11/10/2015 [facility] CHEM PANEL A/G Ratio 0.9 0.7 - 1.6 11/10/2015 [facility] CHEM PANEL Globulin 3.8 2.0 - 4.0 11/10/2015 [facility] CHEM PANEL AST 22 0 - 37 11/10/2015 [facility] CHEM PANEL ALT 33 0 - 65 11/10/2015 [facility] CHEM PANEL Calcium Lvl 8.9 8.5 - 10.5 11/10/2015 [facility] CHEM PANEL CO2 21 24 - 32 11/10/2015 [facility] CHEM PANEL Sodium Lvl 140 135 - 145 11/10/2015 [facility] CHEM PANEL Potassium Lvl 3.5 3.5 - 5.1 11/10/2015 [facility] CHEM PANEL BUN 14 7 - 22 11/10/2015 [facility] CHEM PANEL Creatinine Lvl 0.74 0.50 - 1.40 11/10/2015 [facility] CHEM PANEL Glucose Lvl 83 70 - 99 11/10/2015 [facility] CHEM PANEL Albumin Lvl 3.6 3.5 - 5.0 11/10/2015 [facility] CHEM PANEL Total Protein 7.4 6.4 - 8.4 11/10/2015 [facility] CHEM PANEL Chloride Lvl 105 95 - 109 11/10/2015 [facility] [facility] HEMATOLOGY Segs 83.9 45.0 - 75.0 11/10/2015 [facility] HEMATOLOGY Lymphocytes 8.2 20.0 - 40.0 11/10/2015 [facility] HEMATOLOGY Segs-Bands # 9.7 1.5 - 8.1 11/10/2015 [facility] HEMATOLOGY Basophils 0.6 0.0 - 1.0 11/10/2015 [facility] HEMATOLOGY Eosinophils 0.9 0.0 - 4.0 11/10/2015 [facility] HEMATOLOGY Monocytes 6.4 2.0 - 12.0 11/10/2015 [facility] HEMATOLOGY Basophils # 0.1 0.0 - 0.2 11/10/2015 [facility] HEMATOLOGY Lymphocytes # 1.0 1.0 - 5.5 11/10/2015 [facility] Eosinophils # 0.1 0.0 - 0.5 11/10/2015 [facility] Monocytes # 0.7 0.0 - 0.8 11/10/2015 [facility] MPV 10.4 7.4 - 10.4 11/10/2015 [facility] MCH 30.2 27.0 - 31.0 11/10/2015 [facility] Platelet 159 133 - 450 11/10/2015 [facility] MCHC 33.1 32.0 - 36.0 11/10/2015 [facility] RDW 13.3 11.5 - 14.5 11/10/2015 [facility] MCV 91.3 80.0 - 94.0 11/10/2015 [facility] Hct 40.0 42.0 - 54.0 11/10/2015 [facility] Hgb 13.2 14.0 - 18.0 11/10/2015 [facility] RBC 4.39 4.70 - 6.10 11/10/2015 [facility] WBC 11.5 3.7 - 10.4 11/10/2015 [facility] Pathology Reports No Data Provided for This Section Diagnostic Reports Report Value Date Source Neck CTA Clinical Indication: Dizziness/off balance Comparison: None. TECHNIQUE: Sequential trans-axial images of the neck were obtained with a multi- detector helical CT after iodinated contrast administration. Coronal and sagittal reconstructions and were obtained, along with 3D post-processing imaging for exam interpretation. CT imaging was performed with exposure control parameters to reduce radiation dose. CONTRAST: 100 cc of IV Omnipaque contrast material was used for the exam. CT Radiation Dose DLP 347 mGy-cm FINDINGS: CTA NECK: VASCULAR EVALUATION: The origins of the great vessels and visualized upper thoracic aortic arch are unremarkable. Bovine arch is noted. There is calcification at the origin off bilateral vertebral arteries, left common carotid and left subclavian arteries. The common carotid arteries are patent bilaterally. There is moderate atherosclerotic disease in the bilateral distal common carotid artery and proximal internal carotid arteries. There is approximately 70% stenosis in the proximal right internal carotid artery. There is approximately 42% stenosis in the proximal left internal carotid artery. Bilateral cervical segments of the vertebral arteries are patent. The source images show no evidence of dissections. If there is further concern, recommend conventional angiography for complete assessment. NON-VASCULAR STRUCTURES: Grossly unremarkable. IMPRESSION: Moderate atherosclerotic disease in the bilateral distal common carotid and proximal internal carotid arteries. Approximately 70% stenosis in the proximal right internal carotid artery. Approximately 42% stenoses in the proximal left internal carotid artery. NATE: BMUSTAFAIleana 12/07/2017 [facility] Retroperitoneal Complete US Patient Name: MINNA GRUBER : 1945; Age: 71 years y/o Male MR: [id number] Study: Retroperitoneal Complete US Clinical Indication: - bernardo; Comparison: None TECHNIQUE: Multiple longitudinal and transverse real time sonographic images of the kidneys and urinary bladder are obtained. FINDINGS: KIDNEY: The right kidney measures 10.8 x 6.7 x 7.0cm. The left kidney measures 12.9 x 6.8 x 6.5 cm. No pelvocaliectasis, nephrolithiasis or renal mass lesion identified bilaterally. BLADDER: Bladder is empty by Mehta catheter. IMPRESSION: 1. Unremarkable renal U/S SL: [id number] 03/15/2017 [facility] Abdomen/Pelvis wo IV contrast CT CT ABDOMEN PELVIS WITHOUT CONTRAST: HISTORY: Sepsis. TECHNIQUE: Multislice acquisition of the abdomen and pelvis was done without IV contrast. Oral contrast was administered. Sagittal and coronal reconstructions were also done. FINDINGS: The liver, gallbladder, spleen, pancreas, kidneys and adrenal glands show no significant abnormalities. A Mehta catheter is noted in the bladder. Mild bladder wall thickening is noted. The prostate is mildly enlarged but otherwise unremarkable. There is no intra-abdominal abscess, free fluid or pneumoperitoneum. The appendix is not visualized. There is mild diverticulosis of the sigmoid colon without evidence of diverticulitis. The gastrointestinal tract is otherwise unremarkable. Atherosclerotic changes in the aortoiliac segment are noted without other significant retroperitoneal abnormalities. There are no acute osseous abnormalities. Degenerative changes in the lumbar spine are noted. There is mild subsegmental atelectasis in the posterior costophrenic sulci. IMPRESSION: 1. No acute CT abnormalities in the abdomen or pelvis. 2. Mild bibasilar subsegmental atelectasis. [id number] 03/15/2017 [facility] Chest 1view DX Chest 1view DX CLINICAL HISTORY: - chest pain, dehydration COMPARISON: 02/04/2017 FINDINGS: Limited AP portable study. SUPPORT DEVICES: none LUNGS: Lungs are reasonably well inflated. No consolidation or any significant effusion. No pneumothorax is evident. CARDIOVASCULAR: Cardiac silhouette size is within normal limits. Poststernotomy changes. No pulmonary edema. MEDIASTINUM/SERGIO: Trachea is midline. No contour abnormality is noted. BONE AND SOFT TISSUES: No acute abnormality is noted. IMPRESSION: No acute abnormality is noted in the chest. SL: [id number] 03/14/2017 [facility] 1view DX Study: Frontal chest x-ray compared to 01/10/16 History: Chest pain Comments: The trachea is midline. The cardiomediastinal silhouette is normal in size. Sternotomy wires in place No pneumonia. No pleural effusions or pneumothorax. Impression: No acute cardiopulmonary disease. 02/04/2017 [facility] 1view DX EXAM: XR CHEST 1 VIEW DATE: 01/10/2016 at 0144 hours INDICATION: Arrhythmias COMPARISON: Chest radiograph on 01/09/2016 at 2326 hours TECHNIQUE: AP chest FINDINGS: The cardiomediastinal silhouette is stable. There are unchanged linear opacities in the lingula and retrocardiac region. Minimal bibasilar subsegmental atelectasis is noted. There are no pleural effusions. There is no pneumothorax. The bones are unchanged. IMPRESSION: 1. No acute abnormality or significant interval change. 2. Unchanged bibasilar subsegmental atelectasis and scarring. 01/10/2016 [facility] Chest 1view DX EXAM: XR CHEST 1 VIEW DATE: 01/09/2016 at 2326 hours INDICATION: Chest pain COMPARISON: Chest radiograph on 11/10/2015 TECHNIQUE: AP chest, semierect. FINDINGS: The median sternotomy wires are intact. The cardiomediastinal silhouette is stable. Left retrocardiac and lingular opacities noted. Nodular opacity projecting lateral to the left hilum likely represents end on vessel. There is no pleural effusion or pneumothorax. Osseous structures are unchanged. IMPRESSION: 1. No acute abnormality or significant interval change since prior radiograph on 11/10/2015 2. Unchanged lingular and left retrocardiac opacities likely representing scarring/subsegmental atelectasis. 01/09/2016 [facility] Chest Pulmonary Embolism CTA Study: Chest Pulmonary Embolism CTA Clinical Indication: Chest pain; Comparison: Chest x-ray performed earlier the same day TECHNIQUE: Multiple axial CT images of the chest were acquired following the administration of intravenous contrast according to the pulmonary embolism protocol. Multiplanar and three-dimensional reformatted images were performed. 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 Aortic valvular, coronary artery, and thoracic aortic calcifications are seen. Cardiac chambers and pericardium are unremarkable. There are no segmental pulmonary emboli noted. The main, right, and left pulmonary arteries are normal. No thoracic aortic aneurysm or dissection is seen. No pathologic mediastinal, hilar, or axillary adenopathy is seen. No endobronchial lesions are identified within the central airways. The lungs are clear without consolidation, mass, or nodule. No pleural effusion or pneumothorax is seen. Limited views of the upper abdomen show no focal abnormality. IMPRESSION: 1. No evidence of pulmonary emboli. 2. No acute cardiopulmonary disease. SL: [id number] 11/10/2015 [facility] Ext Lower Venous Doppler Unilat US Study: Right lower extremity Doppler venous ultrasound Clinical Indication: Right lower extremity pain Comparison: None Findings: Multiple grayscale sonographic and color Doppler images of the right lower extremity were acquired. The right common femoral, superficial femoral, and popliteal veins show normal compressibility, flow, and augmentation without filling defect. IMPRESSION: No evidence of deep venous thrombosis of the right lower extremity. SL: [id number] 11/10/2015 [facility] Chest 1view DX Portable chest: Median sternotomy wires are noted. The cardiomediastinal silhouette and pulmonary vasculature are within normal limits. There is mild linear scarring in the lingula. The lungs and ple ural spaces are otherwise clear. There are no acute osseous abnormalities. IMPRESSION: No acute radiographic abnormality in the chest. 13 11/10/2015 [facility] Consultation Notes No Data Provided for This Section Discharge Summaries No Data Provided for This Section History and Physicals No Data Provided for This Section Vital Signs Vital Sign Value Date Comments Source Weight 235 12/04/2018 [facility] Height 66 12/04/2018 [facility] Heart Rate 52 12/04/2018 [facility] Diastolic (mm Hg) 52 12/04/2018 [facility] Systolic (mm Hg) 122 12/04/2018 [facility] Weight 238 09/08/2018 [facility] Height 66 09/08/2018 [facility] Heart Rate 56 09/08/2018 [facility] Diastolic (mm Hg) 62 09/08/2018 [facility] Systolic (mm Hg) 138 09/08/2018 [facility] Weight 235 08/08/2018 [facility] Height 66 08/08/2018 [facility] Heart Rate 55 08/08/2018 [facility] Diastolic (mm Hg) 72 08/08/2018 [facility] Systolic (mm Hg) 124 08/08/2018 [facility] Weight 235 07/24/2018 [facility] Height 66 07/24/2018 [facility] Heart Rate 57 07/24/2018 [facility] Diastolic (mm Hg) 80 07/24/2018 [facility] Systolic (mm Hg) 142 07/24/2018 [facility] Weight 233 05/21/2018 [facility] Height 66 05/21/2018 [facility] Heart Rate 66 05/21/2018 [facility] Diastolic (mm Hg) 58 05/21/2018 [facility] Systolic (mm Hg) 125 05/21/2018 [facility] Weight 234 03/14/2018 [facility] Height 66 03/14/2018 [facility] Heart Rate 61 03/14/2018 [facility] Diastolic (mm Hg) 64 03/14/2018 [facility] Systolic (mm Hg) 120 03/14/2018 [facility] Weight 233 10/17/2017 [facility] Height 66 10/17/2017 [facility] Heart Rate 52 10/17/2017 [facility] Diastolic (mm Hg) 64 10/17/2017 [facility] Systolic (mm Hg) 120 10/17/2017 [facility] Weight 233 10/15/2017 [facility] Height 66 10/15/2017 [facility] Heart Rate 57 10/15/2017 [facility] Diastolic (mm Hg) 70 10/15/2017 [facility] Systolic (mm Hg) 168 10/15/2017 [facility] Weight 227 08/05/2017 [facility] Height 66 08/05/2017 [facility] Heart Rate 68 08/05/2017 [facility] Diastolic (mm Hg) 62 08/05/2017 [facility] Systolic (mm Hg) 130 08/05/2017 [facility] Weight 226 05/03/2017 [facility] Height 66 05/03/2017 [facility] Heart Rate 70 05/03/2017 [facility] Diastolic (mm Hg) 58 05/03/2017 [facility] Systolic (mm Hg) 114 05/03/2017 [facility] Weight 228 03/21/2017 [facility] Height 66 03/21/2017 [facility] Heart Rate 68 03/21/2017 [facility] Diastolic (mm Hg) 72 03/21/2017 [facility] Systolic (mm Hg) 134 03/21/2017 [facility] Respitory Rate 18 03/17/2017 [facility] Systolic (mm Hg) 158 03/17/2017 [facility] Diastolic (mm Hg) 64 03/17/2017 [facility] Temperature Oral (F) 98.4 F 03/17/2017 [facility] Heart Rate 83 03/17/2017 [facility] Temperature Oral (F) 97.7 F 03/17/2017 [facility] Systolic (mm Hg) 138 03/17/2017 [facility] Diastolic (mm Hg) 63 03/17/2017 [facility] Heart Rate 76 03/17/2017 [facility] Respitory Rate 18 03/17/2017 [facility] Systolic (mm Hg) 109 03/16/2017 [facility] Diastolic (mm Hg) 56 03/16/2017 [facility] Temperature Oral (F) 98 F 03/16/2017 [facility] Heart Rate 64 03/16/2017 [facility] Respitory Rate 20 03/16/2017 [facility] Weight 100 03/14/2017 [facility] BMI Calculated 35.58 03/14/2017 [facility] Height 167.64 cm 03/14/2017 [facility] Systolic (mm Hg) 102 03/14/2017 [facility] Height 66 03/14/2017 [facility] Temperature Oral (F) 98.1 F 03/14/2017 [facility] Heart Rate 90 03/14/2017 [facility] Diastolic (mm Hg) 64 03/14/2017 [facility] Weight 228 02/12/2017 [facility] Height 66 02/12/2017 [facility] Heart Rate 68 02/12/2017 [facility] Diastolic (mm Hg) 70 02/12/2017 [facility] Systolic (mm Hg) 138 02/12/2017 [facility] Temperature Oral (F) 98.8 F 02/05/2017 [facility] Heart Rate 69 02/05/2017 [facility] Respitory Rate 16 02/05/2017 [facility] Systolic (mm Hg) 133 02/05/2017 [facility] Diastolic (mm Hg) 55 02/05/2017 [facility] Respitory Rate 16 02/05/2017 [facility] Systolic (mm Hg) 151 02/05/2017 [facility] Diastolic (mm Hg) 54 02/05/2017 [facility] Respitory Rate 16 02/05/2017 [facility] Temperature Oral (F) 98.0 F 02/05/2017 [facility] Heart Rate 67 02/05/2017 [facility] Systolic (mm Hg) 148 02/05/2017 [facility] Diastolic (mm Hg) 66 02/05/2017 [facility] Heart Rate 68 02/05/2017 [facility] Temperature Oral (F) 97.5 F 02/05/2017 [facility] Weight 102.909 02/04/2017 [facility] BMI Calculated 36.62 02/04/2017 [facility] Height 167.64 cm 02/04/2017 [facility] Height 167.64 cm 02/04/2017 [facility] Weight 100 02/04/2017 [facility] BMI Calculated 35.58 02/04/2017 [facility] Weight 229 12/11/2016 [facility] Height 66 12/11/2016 [facility] Heart Rate 67 12/11/2016 [facility] Diastolic (mm Hg) 77 12/11/2016 [facility] Systolic (mm Hg) 110 12/11/2016 [facility] Weight 232 08/14/2016 [facility] Height 66 08/14/2016 [facility] Heart Rate 67 08/14/2016 [facility] Diastolic (mm Hg) 62 08/14/2016 [facility] Systolic (mm Hg) 118 08/14/2016 [facility] Weight 101.364 06/26/2016 [facility] BMI Calculated 36.07 06/26/2016 [facility] Height 167.64 cm 06/26/2016 [facility] Weight 232 05/08/2016 [facility] Height 66 05/08/2016 [facility] Heart Rate 82 05/08/2016 [facility] Diastolic (mm Hg) 78 05/08/2016 [facility] Systolic (mm Hg) 110 05/08/2016 [facility] Weight 226 02/22/2016 [facility] Height 66 02/22/2016 [facility] Temperature Oral (F) 98.0 F 02/22/2016 [facility] Heart Rate 88 02/22/2016 [facility] Diastolic (mm Hg) 56 02/22/2016 [facility] Systolic (mm Hg) 108 02/22/2016 [facility] Weight 225 01/25/2016 [facility] Height 66 01/25/2016 [facility] Heart Rate 72 01/25/2016 [facility] Diastolic (mm Hg) 80 01/25/2016 [facility] Systolic (mm Hg) 140 01/25/2016 [facility] Temperature Oral (F) 98.2 F 01/11/2016 [facility] Temperature Oral (F) 97.2 F 01/11/2016 [facility] Respitory Rate 16 01/11/2016 [facility] Systolic (mm Hg) 154 01/11/2016 [facility] Diastolic (mm Hg) 69 01/11/2016 [facility] Temperature Oral (F) 97.0 F 01/11/2016 [facility] Systolic (mm Hg) 135 01/11/2016 [facility] Diastolic (mm Hg) 70 01/11/2016 [facility] Systolic (mm Hg) 124 01/11/2016 [facility] Diastolic (mm Hg) 61 01/11/2016 [facility] BMI Calculated 35.19 01/11/2016 [facility] Weight 98.892 01/11/2016 [facility] Height 167.64 cm 01/11/2016 [facility] Respitory Rate 41 01/11/2016 [facility] Respitory Rate 20 01/11/2016 [facility] Heart Rate 80 01/10/2016 [facility] Heart Rate 80 01/10/2016 [facility] Weight 224 12/22/2015 [facility] Height 66 12/22/2015 [facility] Heart Rate 77 12/22/2015 [facility] Diastolic (mm Hg) 80 12/22/2015 [facility] Systolic (mm Hg) 134 12/22/2015 [facility] Respitory Rate 19 11/11/2015 [facility] Systolic (mm Hg) 151 11/11/2015 [facility] Diastolic (mm Hg) 68 11/11/2015 [facility] Respitory Rate 17 11/11/2015 [facility] Systolic (mm Hg) 165 11/11/2015 [facility] Diastolic (mm Hg) 74 11/11/2015 [facility] Respitory Rate 23 11/11/2015 [facility] Systolic (mm Hg) 144 11/11/2015 [facility] Diastolic (mm Hg) 74 11/11/2015 [facility] Temperature Oral (F) 98 F 11/11/2015 [facility] BMI Calculated 37.2 11/10/2015 [facility] Weight 104.545 11/10/2015 [facility] Heart Rate 116 11/10/2015 [facility] Temperature Oral (F) 97.7 F 11/10/2015 [facility] Height 167.64 cm 11/10/2015 [facility] Weight 227 11/02/2015 [facility] Height 66 11/02/2015 [facility] Heart Rate 74 11/02/2015 [facility] Diastolic (mm Hg) 84 11/02/2015 [facility] Systolic (mm Hg) 146 11/02/2015 [facility] Encounters Location Location Details Encounter Type Encounter Number Reason For Visit Attending Provider ADM Date DC Date Status Source [facility] CONFIGURATOR-chest discomfort [id number] 11/02/2015 11/02/2015 [facility] CONFIGURATOR-chest discomfort [id number] 11/02/2015 11/02/2015 [facility] CONFIGURATOR-chest discomfort [id number] 11/02/2015 11/02/2015 [facility] CONFIGURATOR-chest discomfort [id number] 11/02/2015 11/02/2015 [facility] CONFIGURATOR-chest discomfort [id number] 11/02/2015 11/02/2015 [facility] CONFIGURATOR-chest discomfort [id number] 11/02/2015 11/02/2015 [facility] CONFIGURATOR-chest discomfort [id number] 11/02/2015 11/02/2015 [facility] CONFIGURATOR-chest discomfort [id number] 11/02/2015 11/02/2015 [facility] CONFIGURATOR-chest discomfort [id number] 11/02/2015 11/02/2015 [facility] CONFIGURATOR-chest discomfort [id number] 11/02/2015 11/02/2015 [facility] CONFIGURATOR-chest discomfort [id number] 11/02/2015 11/02/2015 [facility] CONFIGURATOR-chest discomfort [id number] 11/02/2015 11/02/2015 [facility] CONFIGURATOR-chest discomfort [id number] 11/02/2015 11/02/2015 [facility] CONFIGURATOR-chest discomfort [id number] 11/02/2015 11/02/2015 [facility] CONFIGURATOR-chest discomfort [id number] 11/02/2015 11/02/2015 [facility] CONFIGURATOR-chest discomfort [id number] 11/02/2015 11/02/2015 [facility] CONFIGURATOR-chest discomfort [id number] 11/02/2015 11/02/2015 [facility] Unknown [id number] 11/08/2015 11/08/2015 [facility] Unknown [id number] 11/08/2015 11/08/2015 [facility] Unknown [id number] 11/08/2015 11/08/2015 [facility] Unknown [id number] 11/08/2015 11/08/2015 [facility] Unknown [id number] 11/08/2015 11/08/2015 [facility] Unknown [id number] 11/08/2015 11/08/2015 [facility] Unknown [id number] 11/08/2015 11/08/2015 [facility] Unknown [id number] 11/08/2015 11/08/2015 [facility] Unknown [id number] 11/08/2015 11/08/2015 [facility] Unknown [id number] 11/08/2015 11/08/2015 [facility] Unknown [id number] 11/08/2015 11/08/2015 [facility] Unknown [id number] 11/08/2015 11/08/2015 [facility] Unknown [id number] 11/08/2015 11/08/2015 [facility] Unknown [id number] 11/08/2015 11/08/2015 [facility] Unknown [id number] 11/08/2015 11/08/2015 [facility] Unknown [id number] 11/08/2015 11/08/2015 [facility] Outpatient [id number] ROCÍO PACKER 11/10/2015 [facility] Inpatient [id number] Rosa M Bell 11/10/2015 11/11/2015 [facility] Needs referral [id number] 11/15/2015 11/15/2015 [facility] Needs referral [id number] 11/15/2015 11/15/2015 [facility] Needs referral [id number] 11/15/2015 11/15/2015 [facility] Needs referral [id number] 11/15/2015 11/15/2015 [facility] Needs referral [id number] 11/15/2015 11/15/2015 [facility] Needs referral [id number] 11/15/2015 11/15/2015 [facility] Needs referral [id number] 11/15/2015 11/15/2015 [facility] Needs referral [id number] 11/15/2015 11/15/2015 [facility] Needs referral [id number] 11/15/2015 11/15/2015 [facility] Needs referral [id number] 11/15/2015 11/15/2015 [facility] Needs referral [id number] 11/15/2015 11/15/2015 [facility] Needs referral [id number] 11/15/2015 11/15/2015 [facility] Needs referral [id number] 11/15/2015 11/15/2015 [facility] Needs referral [id number] 11/15/2015 11/15/2015 [facility] Needs referral [id number] 11/15/2015 11/15/2015 [facility] Follow up ~ Had heart attack [id number] 12/22/2015 12/22/2015 [facility] Follow up ~ Had heart attack [id number] 12/22/2015 12/22/2015 [facility] Follow up ~ Had heart attack [id number] 12/22/2015 12/22/2015 [facility] Follow up ~ Had heart attack [id number] 12/22/2015 12/22/2015 [facility] Follow up ~ Had heart attack [id number] 12/22/2015 12/22/2015 [facility] Follow up ~ Had heart attack [id number] 12/22/2015 12/22/2015 [facility] Follow up ~ Had heart attack [id number] 12/22/2015 12/22/2015 [facility] Follow up ~ Had heart attack [id number] 12/22/2015 12/22/2015 [facility] Follow up ~ Had heart attack [id number] 12/22/2015 12/22/2015 [facility] Follow up ~ Had heart attack [id number] 12/22/2015 12/22/2015 [facility] Follow up ~ Had heart attack [id number] 12/22/2015 12/22/2015 [facility] Follow up ~ Had heart attack [id number] 12/22/2015 12/22/2015 [facility] Follow up ~ Had heart attack [id number] 12/22/2015 12/22/2015 [facility] Follow up ~ Had heart attack [id number] 12/22/2015 12/22/2015 [facility] medication [id number] 12/23/2015 12/23/2015 [facility] medication [id number] 12/23/2015 12/23/2015 [facility] medication [id number] 12/23/2015 12/23/2015 [facility] medication [id number] 12/23/2015 12/23/2015 [facility] medication [id number] 12/23/2015 12/23/2015 [facility] medication [id number] 12/23/2015 12/23/2015 [facility] medication [id number] 12/23/2015 12/23/2015 [facility] medication [id number] 12/23/2015 12/23/2015 [facility] medication [id number] 12/23/2015 12/23/2015 [facility] medication [id number] 12/23/2015 12/23/2015 [facility] medication [id number] 12/23/2015 12/23/2015 [facility] medication [id number] 12/23/2015 12/23/2015 [facility] medication [id number] 12/23/2015 12/23/2015 [facility] Unknown [id number] 12/31/2015 12/31/2015 [facility] Unknown [id number] 12/31/2015 12/31/2015 [facility] Unknown [id number] 12/31/2015 12/31/2015 [facility] Unknown [id number] 12/31/2015 12/31/2015 [facility] Unknown [id number] 12/31/2015 12/31/2015 [facility] Unknown [id number] 12/31/2015 12/31/2015 [facility] Unknown [id number] 12/31/2015 12/31/2015 [facility] Unknown [id number] 12/31/2015 12/31/2015 [facility] Unknown [id number] 12/31/2015 12/31/2015 [facility] Unknown [id number] 12/31/2015 12/31/2015 [facility] Unknown [id number] 12/31/2015 12/31/2015 [facility] Unknown [id number] 12/31/2015 12/31/2015 [facility] Inpatient [id number] [facility] 01/10/2016 01/11/2016 [facility] Follow up after er [id number] 01/25/2016 01/25/2016 [facility] Follow up after er [id number] 01/25/2016 01/25/2016 [facility] Follow up after er [id number] 01/25/2016 01/25/2016 [facility] Follow up after er [id number] 01/25/2016 01/25/2016 [facility] Follow up after er [id number] 01/25/2016 01/25/2016 [facility] Follow up after er [id number] 01/25/2016 01/25/2016 [facility] Follow up after er [id number] 01/25/2016 01/25/2016 [facility] Follow up after er [id number] 01/25/2016 01/25/2016 [facility] Follow up after er [id number] 01/25/2016 01/25/2016 [facility] Follow up after er [id number] 01/25/2016 01/25/2016 [facility] Unknown [id number] 01/25/2016 01/25/2016 [facility] Unknown [id number] 01/25/2016 01/25/2016 [facility] Unknown [id number] 01/25/2016 01/25/2016 [facility] Unknown [id number] 01/25/2016 01/25/2016 [facility] Unknown [id number] 01/25/2016 01/25/2016 [facility] Unknown [id number] 01/25/2016 01/25/2016 [facility] Unknown [id number] 01/25/2016 01/25/2016 [facility] Unknown [id number] 01/25/2016 01/25/2016 [facility] Unknown [id number] 01/25/2016 01/25/2016 [facility] Unknown [id number] 01/25/2016 01/25/2016 [facility] Unknown [id number] 01/25/2016 01/25/2016 [facility] cough and congestion [id number] 02/22/2016 02/22/2016 [facility] cough and congestion [id number] 02/22/2016 02/22/2016 [facility] cough and congestion [id number] 02/22/2016 02/22/2016 [facility] cough and congestion [id number] 02/22/2016 02/22/2016 [facility] cough and congestion [id number] 02/22/2016 02/22/2016 [facility] cough and congestion [id number] 02/22/2016 02/22/2016 [facility] cough and congestion [id number] 02/22/2016 02/22/2016 [facility] cough and congestion [id number] 02/22/2016 02/22/2016 [facility] cough and congestion [id number] 02/22/2016 02/22/2016 [facility] Unknown [id number] 02/27/2016 02/27/2016 [facility] Unknown [id number] 02/27/2016 02/27/2016 [facility] Unknown [id number] 02/27/2016 02/27/2016 [facility] Unknown [id number] 02/27/2016 02/27/2016 [facility] Unknown [id number] 02/28/2016 02/28/2016 [facility] Unknown [id number] 02/28/2016 02/28/2016 [facility] Unknown [id number] 02/28/2016 02/28/2016 [facility] Unknown [id number] 02/28/2016 02/28/2016 [facility] Refill [id number] 04/04/2016 04/04/2016 [facility] Refill [id number] 04/04/2016 04/04/2016 [facility] Refill [id number] 04/04/2016 04/04/2016 [facility] Refill [id number] 04/04/2016 04/04/2016 [facility] Refill [id number] 04/04/2016 04/04/2016 [facility] Refill [id number] 04/04/2016 04/04/2016 [facility] Refill [id number] 04/04/2016 04/04/2016 [facility] med refill [id number] 05/08/2016 05/08/2016 [facility] med refill [id number] 05/08/2016 05/08/2016 [facility] med refill [id number] 05/08/2016 05/08/2016 [facility] med refill [id number] 05/08/2016 05/08/2016 [facility] med refill [id number] 05/08/2016 05/08/2016 [facility] med refill [id number] 05/08/2016 05/08/2016 [facility] Unknown [id number] 06/06/2016 06/06/2016 [facility] Unknown [id number] 06/06/2016 06/06/2016 [facility] Unknown [id number] 06/06/2016 06/06/2016 [facility] Unknown [id number] 06/06/2016 06/06/2016 [facility] Unknown [id number] 06/06/2016 06/06/2016 [facility] Outpatient [id number] Sha Cortez Bosch 06/26/2016 06/27/2016 [facility] Unknown [id number] 08/06/2016 08/06/2016 [facility] Unknown [id number] 08/06/2016 08/06/2016 [facility] Unknown [id number] 08/06/2016 08/06/2016 [facility] Unknown [id number] 08/06/2016 08/06/2016 [facility] refills [id number] 08/14/2016 08/14/2016 [facility] refills [id number] 08/14/2016 08/14/2016 [facility] refills [id number] 08/14/2016 08/14/2016 [facility] Outpatient [id number] Hugo Dutta 08/14/2016 08/15/2016 [facility] Unknown [id number] 10/29/2016 10/29/2016 [facility] Unknown [id number] 10/29/2016 10/29/2016 [facility] Unknown [id number] 11/30/2016 11/30/2016 [facility] Observation [id number] Amir Kevinebranious 02/04/2017 02/05/2017 [facility] Inpatient [id number] Amir Ghebranious 03/14/2017 03/17/2017 [facility] Outpatient [id number] Sha Cortez Bosch 12/07/2017 12/08/2017 [facility] Procedures Procedure Code Date Perfomer Comments Source Cystectomy<sup>1</sup> [id number] 09/23/1967 spine [facility] Appendectomy [id number] 09/23/1963 [facility] 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 Tolerating oral food well. Patient seen and evaluated at bedside. No overnight events. Denies chest pain, nausea, vomiting, diarrhea, headache, lightheadness, abdomen pain or dizziness. OBJECTIVE: Vitals Tmp(F) Pulse BP RR SpO2 FIO2 03/16 15:57 98 64 109/56 20 96 --- 03/16 12:03 98.6 82 160/72 20 97 --- 03/16 08:09 98.1 81 122/67 20 96 --- 03/16 04:42 98.7 86 103/68 20 --- --- 03/16 00:18 98.2 93 128/73 20 --- --- 24 Hr Tmax: 98.7F (37.06c) at 03/16 04:42 Vital Signs are the last 5 in the past 48 hours. I&O Record In Out Bal 03/16 24hr Tot 2710 1900 810 03/15 24hr Tot 2441 1900 541 Labs (Last four charted values) WBC 8.2 (MAR 16) H 21.3 (MAR 14) Hgb L 10.6 (MAR 16) L 12.7 (MAR 14) Hct L 32.6 (MAR 16) L 39.7 (MAR 14) Plt 140 (MAR 16) 214 (MAR 14) Na 144 (MAR 16) 139 (MAR 15) 136 (MAR 14) K 4.8 (MAR 16) H 5.3 (MAR 15) H 6.0 (MAR 14) CO2 L 23 (MAR 16) L 16 (MAR 15) L 21 (MAR 14) Cl H 118 (MAR 16) H 114 (MAR 15) 108 (MAR 14) Cr H 2.30 (MAR 16) H 3.70 (MAR 15) H 4.80 (MAR 14) BUN H 44 (MAR 16) H 58 (MAR 15) H 67 (MAR 14) Glucose Random H 126 (MAR 16) 89 (MAR 15) H 142 (MAR 14) Mg L 1.7 (MAR 14) Ca L 7.7 (MAR 16) L 7.7 (MAR 15) 9.1 (MAR 14) PT 13.7 (MAR 14) INR 1.03 (MAR 14) PTT 33.2 (MAR 14) Troponin <0.02 (MAR 14) CK MB 1.4 (MAR 14) Total CK H 197 (MAR 14) Medications (30) Active Scheduled: (11) aspirin 81 mg ECT 81 mg 1 tab, PO, Daily atorvastatin 40mg tab 40 mg 1 tab, PO, Bedtime carbidopa-levodopa 10-100 mg TAB 1 tab, PO, BID cefepime 1 gm INJ + sodium chloride 0.9% INJ 100 mL 1 gm, IVPB, VTSS13C clopidogrel 75 mg TAB 75 mg 1 tab, PO, Daily docusate sodium 100 mg CAP 100 mg 1 cap, PO, BID isosorbide mononitrate 30 mg ERT 120 mg 4 tab, PO, QAM metoprolol succinate 50 mg ERT 50 mg 1 tab, PO, Daily pneumococcal 13-valent conjugate vaccine SUSP 0.5 mL, IM, ONCALL ranolazine 500mg ER tab 500 mg 1 tab, PO, BID sodium bicarbonate 650 mg TAB 1,300 mg 2 tab, PO, BID Continuous: (1) sodium chloride 0.9% 1000 ml INJ 1,000 mL 1,000 mL, IV, 125 ml/hr PRN: (18) acetaminophen 325 mg TABLET 650 mg 2 tab, PO, Q4H Dextrose 50% 50 ml INJ syringe 12.5 gm 25 mL, IVP, PRN Dextrose 50% 50 ml INJ syringe 25 gm 50 mL, IVP, PRN glucagon recombinant 1 mg PDR 1 mg, IM, PRN insulin aspart 100 unit/ml 3ml Pen 1 unit 0.01 mL, SUB-Q, TID-Before Meals insulin aspart 100 unit/ml 3ml Pen 2 unit 0.02 mL, SUB-Q, TID-Before Meals insulin aspart 100 unit/ml 3ml Pen 3 unit 0.03 mL, SUB-Q, TID-Before Meals insulin aspart 100 unit/ml 3ml Pen 4 unit 0.04 mL, SUB-Q, TID-Before Meals insulin aspart 100 unit/ml 3ml Pen 5 unit 0.05 mL, SUB-Q, TID-Before Meals insulin aspart 100 unit/ml 3ml Pen 1 unit 0.01 mL, SUB-Q, Bedtime insulin aspart 100 unit/ml 3ml Pen 2 unit 0.02 mL, SUB-Q, Bedtime insulin aspart 100 unit/ml 3ml Pen 3 unit 0.03 mL, SUB-Q, Bedtime insulin aspart 100 unit/ml 3ml Pen 4 unit 0.04 mL, SUB-Q, Bedtime MORPhine sulfate PF 2 mg/ml CARP 1 mg 0.5 mL, IVP, Q4H nitroglycerin 0.4 mg TAB 25's btl 0.4 mg 1 tab, SL, Q5Min ondansetron 4 mg/2ml INJ VL 2 mg 1 mL, IV, Q4H sodium chloride 0.9% 10 ml flush syr BD 10 mL, IVP, PRN sodium chloride 0.9% 10 ml flush syr BD 10 ml, IVP, PRN PHYSICAL EXAM: General: Alert and oriented, No acute distress. Eye: Pupils are equal, round and reactive to light, Extraocular movements are intact, Normal conjunctiva. HENT: Normocephalic, Dry oral mucosa. Neck: Supple, Non-tender, No jugular venous distention. Respiratory: Lungs are clear to auscultation, Respirations are non-labored, Breath sounds are equal. Cardiovascular: Normal rate, Regular rhythm, No murmur. Gastrointestinal: Soft, Non-tender, Non-distended. Musculoskeletal Normal range of motion. Normal strength. Integumentary: Warm, Dry, Intact. Neurologic: Alert, Oriented, No focal deficits. Cognition and Speech: Oriented, Speech clear and coherent. Psychiatric: Cooperative, Appropriate mood and affect. Renal ultrasound: KIDNEY: The right kidney measures 10.8 x 6.7 x 7.0cm. The left kidney measures 12.9 x 6.[address] abdomen pelvis without contrast: IMPRESSION: 1. No acute CT abnormalities in the abdomen or pelvis. 2. Mild bibasilar subsegmental atelectasis. Impression and Plan 1. Acute kidney injury secondary to dehydration/nausea/vomiting/diarrhea/prerenal azotemia 2. Metabolic acidosis secondary to acute kidney injury, diarrhea 3. Hyperkalemia 4. Gastroenteritis/leukocytosis 5. Acute pancreatitis PLAN: Renal ultrasound reviewed with enlarged left kidney but no echogenicity concerning for underlying renal parenchymal disease. Continue with IV fluids. Urine lites: Urine sodium, urine protein to creatinine, microalbumin to creatinine, urine eosinophils, UA with microscopy have been ordered. Discontinue sodium bicarb tabs. Repeat labs in the morning. Creatinine improving continue with IV fluids. Thank you so much for this consultation. We will continue to follow with you Extracted from:Title: Nephrology consult note Author: Maximino Parry MD Date: 03/15/17 Impression and Plan 1. Acute kidney injury secondary to dehydration/nausea/vomiting/diarrhea/prerenal azotemia 2. Metabolic acidosis secondary to acute kidney injury, diarrhea 3. Hyperkalemia 4. Gastroenteritis/leukocytosis 5. Acute pancreatitis PLAN: Renal ultrasound reviewed with enlarged left kidney but no echogenicity concerning for underlying renal parenchymal disease. Continue with IV fluids. Urine lites: Urine sodium, urine protein to creatinine, microalbumin to creatinine, urine eosinophils, UA with microscopy have been ordered. Add sodium bicarbonate tabs 1300 mg p.o. twice daily. Repeat labs in the morning. Thank you so much for this consultation. We will continue to follow with you 03/17/2017 [facility] Extracted from:Title: Clinical Document Author: Meenakshi Chaidez MD Date: 02/05/17 Progress Note - Daily [facility] Completed: Sunday, FEBRUARY 05, 2017, 11:43 by Meenakshi Chaidez MD RM: CCDU - 07, SE THAISU MINNA GRUBER 71y (: 1945) M Attending: Meenakshi Chaidez MD Service: Internal Medicine Reason for Admission: BERNARDO (ACUTE KIDNEY INJURY), CHEST PAIN Working DRG: None Documented Code status: None Specified=FULL CODE Current diet: Isolation: None Documented Allergies: NKDA SUBJECTIVE OBJECTIVE 24hr Labs 02/05 0800 Glucose POC 112 H 02/05 0412 Glucose POC 74 02/05 0247 Glucose Lvl 67 L BUN 20 Creatinine Lvl 0.93 Sodium Lvl 144 Potassium Lvl 4.4 Chloride Lvl 111 H CO2 28 AGAP 9.4 L Calcium Lvl 8.5 eGFR 83 WBC 6.9 RBC 3.46 L Hgb 10.4 L Hct 31.5 L MCV 91.2 MCH 30.0 MCHC 32.9 RDW 13.4 Platelet 151 MPV 9.7 Segs 55.8 Monocytes 7.3 Lymphocytes 30.8 Eosinophils 5.3 H Basophils 0.8 Segs-Bands # 3.9 Lymphocytes # 2.1 Monocytes # 0.5 Eosinophils # 0.4 Basophils # 0.1 02/04 2109 Glucose POC 211 H 02/04 1626 Glucose POC 152 H Mehta still necessary (Yes/No): Line still necessary (Yes/No): Vitals Tmp(F) Pulse BP RR SpO2 FIO2 02/05 08:03 ---- --- ----- 16 96 21% 02/05 07:20 98.0 67 151/54 16 97 --- 02/05 03:02 97.5 68 148/66 16 97 --- 02/05 00:42 97.5 74 145/73 16 98 --- 02/04 23:06 ---- --- ----- -- 98 2.0L/m 24 Hr Tmax: 98.0F (36.67c) at 02/05 07:20 Vital Signs are the last 5 in the past 48 hours. Date Wt(kg) Wt(lb) Ht(cm) Ht(in) Method 02/04 (initial) 100.00 220.00 Measured 02/04 167.64 66.00 Stated I&O Record In Out Bal 02/05 24hr Tot 0 0 0 02/04 24hr Tot 835 0 835 Medications (31) Active Scheduled Meds (12): 02/05/17 aspirin (aspirin 81 mg tablet, enteric coated) 81 mg PO Daily 02/04/17 atorvastatin 40 mg PO Bedtime 02/04/17 carbidopa-levodopa (carbidopa-levodopa 10 mg-100 mg oral tablet) 1 tab PO BID 02/05/17 clopidogrel 75 mg PO Daily 02/04/17 gabapentin 300 mg PO TID 02/05/17 glipiZIDE (Glucotrol) 10 mg PO Before Breakfast 02/04/17 insulin aspart-insulin aspart protamine 45 unit SUB-Q Bedtime 02/05/17 insulin aspart-insulin aspart protamine 65 unit SUB-Q QAM 02/05/17 isosorbide mononitrate 120 mg PO QAM 02/05/17 metoprolol (Toprol-XL 50 mg oral tablet, extended release) 50 mg PO Daily 02/04/17 ranolazine (Ranexa 500 mg oral tablet, extended release) 500 mg PO BID 02/04/17 sodium chloride (Saline Flush 0.9%) 10 ml IVP Q12H Unscheduled Meds: None PRN Meds (17): 02/04/17 Dextrose 50% in Water IV (Dextrose 50% Syringe) 12.5 gm IVP PRN 02/04/17 Dextrose 50% in Water IV (Dextrose 50% Syringe) 25 gm IVP PRN 02/04/17 glucagon 1 mg IM PRN 02/04/17 hydrALAZINE 10 mg IVP Q6H 02/04/17 insulin aspart 1 unit SUB-Q TID-Before Meals 02/04/17 insulin aspart 2 unit SUB-Q TID-Before Meals 02/04/17 insulin aspart 3 unit SUB-Q TID-Before Meals 02/04/17 insulin aspart 4 unit SUB-Q TID-Before Meals 02/04/17 insulin aspart 5 unit SUB-Q TID-Before Meals 02/04/17 insulin aspart 1 unit SUB-Q Bedtime 02/04/17 insulin aspart 2 unit SUB-Q Bedtime 02/04/17 insulin aspart 3 unit SUB-Q Bedtime 02/04/17 insulin aspart 4 unit SUB-Q Bedtime 02/04/17 nitroglycerin (nitroglycerin SL Tab) 0.4 mg SL Q5Min 02/04/17 ondansetron 4 mg PO Q8H 02/04/17 sodium chloride (Saline Flush 0.9%) 10 ml IVP PRN 02/04/17 sodium chloride (Saline Flush 0.9%) 10 ml IVP PRN One Time Meds (1): 02/04/17 (Completed) nitroglycerin (nitroglycerin 2% ointment) 1 inch TOP ONCE Continuous Infusions (1): 02/04/17 sodium chloride 0.9% 1000 ml INJ 1,000 mL 1,000 mL 75 ml/hr ASSESSMENT and EXAM PLAN and TREATMENT DIAGNOSES and PROBLEMS [id number] Ready for Discharge (Yes/No)? TEACHING ATTESTATION Extracted from:Title: CARDIOLOGY Author: Sha Galeano MD Date: 02/04/17 [place] [facility] MD Dr. Chidi Garcia [id number] [facility], [address] [place], [place], [address] Office: [phone] REASON FOR CONSULT: CV management REQUESTING MD: Sherlyn Sweet MD HISTORY OF PRESENT ILLNESS Mr. Gruber is a pleasant 71yo gentleman with multiple medical conditions including cerebral palsy, HTN, HLD, DM, CAD s/p remote ACB in 2000, multiple PCIs last one in 2014 (RCA), who is being admitted with chest pain. Patient refers that last night after he finished eating he felt a substernal chest discomfort, radiated to left arm, which resolved after a couple of hours. He decided to call EMS and he was brought here for evaluation. ECG showed normal sinus rhythm. ACS has already been r/o with negative cardiac biomarkers. Currently he refers that he feels much better; refers that pain is still present, sharp, reproducible to palpation in anterior chest wall. Of note, his creatinine is 1.6, baseline 0.8. No family members available at this point. PAST MEDICAL HISTORY CAD s/p ACB IN 2000, multiple PCIs. GUERIN to LAD, SVG to RCA. SVG graft known to be occluded. Cerebral palsy HTN HLD DM PAST SURGICAL HISTORY ACB - remote, 2000 Back cyst removal Appendectomy ALLERGIES NKDA FAMILY HISTORY Non contributory HOME MEDS See MAR SOCIAL HISTORY Smoking: Denies EtOH: Denies Other: Denies REVIEW OF SYSTEMS Nervous: Denies Endocrine: Denies Skin: Denies CV: as per HPI Respiratory: as per HPI Hematology/Coagulation: Denies Urinary: Denies Genital: Denies Metabolic: Denies MSK: Denies GI: Denies ID: Denies Endo: Denies Rheum: Denies PHYSICAL EXAM Vitals Tmp(F) Pulse BP RR SpO2 FIO2 02/04 15:14 97.7 66 157/74 18 100 --- 02/04 11:09 97.5 71 161/76 19 100 --- 02/04 09:10 ---- --- ----- -- 97 1.0L/m 02/04 07:01 97.5 76 118/68 19 98 --- 02/04 04:35 ---- --- ----- 20 95 2.0L/m 24 Hr Tmax: 98.1F (36.72c) at 02/04 04:27 Vital Signs are the last 5 in the past 48 hours. I&O Record In Out Bal 02/04 24hr Tot 10 0 10 02/03 24hr Tot 136 400 -264 GENERAL: In bed, no apparent distress. Appears dry. HEENT: Moist mucous membranes, neck supple, JVD absent, carotid bruit absent CV: RRR, S1/S2 normal, S3/S4 negative. CANDIE LUSB. Tender to palpation to anterior chest wall. LUNGS: CTA bilaterally, no wheezing, no crackles ABD: Soft, non tender, non distended, no masses or megalies on my exam EXT: Edema not present, pulses present NEURO: AAOx3, moves 4 extremities, no gross deficit on my exam ECG: Sinus, nsst Labs (Last four charted values) WBC 8.5 (FEBRUARY 04) Hgb L 11.7 (FEBRUARY 04) Hct L 35.1 (FEBRUARY 04) Plt 171 (FEBRUARY 04) Na 144 (FEBRUARY 04) K 4.7 (FEBRUARY 04) CO2 29 (FEBRUARY 04) Cl 108 (FEBRUARY 04) Cr H 1.60 (FEBRUARY 04) BUN H 42 (FEBRUARY 04) Glucose Random H 184 (FEBRUARY 04) Ca 9.0 (FEBRUARY 04) PT 12.3 (FEBRUARY 04) INR 0.90 (FEBRUARY 04) PTT H 35.9 (FEBRUARY 04) Troponin <0.02 (FEBRUARY 04) <0.02 (FEBRUARY 04) <0.02 (FEBRUARY 04) CK MB 1.8 (FEBRUARY 04) Total CK H 224 (FEBRUARY 04) Scheduled Meds (14): 02/05/17 aspirin (aspirin 81 mg tablet, enteric coated) 81 mg PO Daily 02/04/17 atorvastatin 40 mg PO Bedtime 02/04/17 carbidopa-levodopa (carbidopa-levodopa 10 mg-100 mg oral tablet) 1 tab PO BID 02/05/17 clopidogrel 75 mg PO Daily 02/04/17 furosemide (furosemide 40 mg oral tablet) 40 mg PO Bedtime 02/04/17 gabapentin 300 mg PO TID 02/05/17 glipiZIDE (Glucotrol) 10 mg PO Before Breakfast 02/04/17 insulin aspart-insulin aspart protamine 45 unit SUB-Q Bedtime 02/05/17 insulin aspart-insulin aspart protamine 65 unit SUB-Q QAM 02/05/17 isosorbide mononitrate 120 mg PO QAM 02/05/17 lisinopril 20 mg PO Daily 02/05/17 metoprolol (Toprol-XL 50 mg oral tablet, extended release) 50 mg PO Daily 02/04/17 ranolazine (Ranexa 500 mg oral tablet, extended release) 500 mg PO BID 02/04/17 sodium chloride (Saline Flush 0.9%) 10 ml IVP Q12H PRN Meds (): 02/04/17 Dextrose 50% in Water IV (Dextrose 50% Syringe) 12.5 gm IVP PRN 02/04/17 Dextrose 50% in Water IV (Dextrose 50% Syringe) 25 gm IVP PRN 02/04/17 glucagon 1 mg IM PRN 02/04/17 insulin aspart 1 unit SUB-Q TID-Before Meals 02/04/17 insulin aspart 2 unit SUB-Q TID-Before Meals 02/04/17 insulin aspart 3 unit SUB-Q TID-Before Meals 02/04/17 insulin aspart 4 unit SUB-Q TID-Before Meals 02/04/17 insulin aspart 5 unit SUB-Q TID-Before Meals 02/04/17 insulin aspart 1 unit SUB-Q Bedtime 02/04/17 insulin aspart 2 unit SUB-Q Bedtime 02/04/17 insulin aspart 3 unit SUB-Q Bedtime 02/04/17 insulin aspart 4 unit SUB-Q Bedtime 02/04/17 nitroglycerin (nitroglycerin SL Tab) 0.4 mg SL Q5Min 02/04/17 ondansetron 4 mg PO Q8H 02/04/17 sodium chloride (Saline Flush 0.9%) 10 mL IVP PRN 02/04/17 sodium chloride (Saline Flush 0.9%) 10 ml IVP PRN 02/04/17 sodium chloride (Saline Flush 0.9%) 10 ml IVP PRN ASSESSMENT and PLAN CAD - No evidence of ACS with negative cardiac biomarkers Pain is reproducible to palpation to anterior chest wall. - Last year he underwent a stress test AND a PET scan both of them which showed normal perfusion. - On DAPT with ASA/Plavix. Continue b-blockers, statins. - Will recheck TTE with DOppler for LVEF assessment BERNARDO - Creatinine on admission 1.6. Baseline 0.8. Appears clinically dehydrated. - Receiving IV fluids. He admits that he has not been drinking water. Hold ACEi fo rnow. - Recheck BMP in AM HTN - Not at target. Resume home meds. - Hold ACEi for now. HLD - Resume statins. DM - Primary managing Will continue to follow. 02/05/2017 [facility] Extracted from:Title: [facility] Discharge Summary Author: Yamileth Mendoza MD Date: 01/11/16 Discharge Summary Name: Minna Grbuer Record Number: [id number] Admission Date: 01/10/2016 Discharge Date: 01/11/2016 Admit Diagnoses: Atypical chest pain (non-cardiac). Discharge Diagnoses: 1. Chest pain due to noncardiac causes, myalgia. 2. Atherosclerotic coronary heart disease. a. Prior CABG. b. Prior coronary stents. 3. Hypertension. 4. Diabetes, type 2, insulin requiring. 5. Hypercholesterolemia. Procedures: Nuclear Stress test and TTE (see full report in Diagnostics) Chief Complaint: Chest pain PMH: Hospital course: Pt is a 70 yo male w/ pmh of HTN, HLD, IDDMT2, CAD s/p CABGx2 and DESx6, and diastolic CHF w/ last LVEF of 55-60% who presented to the ED on 01/10/2016 w/ right sided chest pain described as a "muscle cramp" onset the day prior to admission at 2pm. Pain did not radiated, rated as 7/10 at its worst, on admission 0/10, and waxed and waned in nature. Pt took 2 NTG SL in his house w/o relief however NTG in ED provided complete relief. Pain was worse w/ deep breathes. Pt denied nausea, vomiting, diaphoresis, difficulty breathing, palpitations during chest pain. Chest pain was similar to previous episodes of chest pain. Pt states he had a heart cath 2 months ago @ [facility] however no stents were placed. Pt saw his cardiology ([facility] strip gauger: Dr. Sha Cortez) 2 days prior and an echo and nuclear stress were scheduled for January 2016. Pt stated he is complaint w/ his medications. Pt denied orthopnea, worsening pedal edema, or difficulty completing his ADL's due to chest pain or dyspnea. In the ED, EKG showed NSR w/ HR of 79 w/o ADDY. CXR was unremarkable. Trop I was negative x 1. BP was 114/56 w/ HR of 71. Pt was saturating 98% on RA. Meds given in ED include ASA 324mg and NTG 0.4mg x 2. He was admitted to [facility] service for ACS rule out. Troponins x3 negative. EKG no changes. Nuclear stress test was normal. TTE no changed from prior. Patient Chest pain was reproducible and improved throughout his stay. Heparin drip was not started. Vital signs were monitored and his home meds were restarted. He has been asymptomatic and hemodynamically stable. De will call his Quality Control Associate to reschedule his appointment and will follow up with him outpatient. Patient understands and agrees to plan. Discharge condition: stable Recent signficant physical findings: Vital Signs (last 24 hrs) Last Charted Temp Oral 97.2 DegF (JAN 10 12:00) Heart Rate Apical 76 bpm (JAN 10 12:00) Resp Rate 16 BRMIN (JAN 10 09:52) SBP H 154mmHg (JAN 10:) DBP 69 mmHg (JAN 10:00) SpO2 96 % (JAN 10:) Weight 98.892 kg (JAN 09:05) Height 167.64 cm (JAN 09:05) BMI 35.19 (JAN 09:05) Physical Exam General: NAD, comfortable HEENT: PERRL, EOMI Cardiovascular: RRR, no m/r/g Respiratory: CTAB, no increased effort Abdomen: +BS, soft Extremities: no cyanosis or edema Integumentary: no skin lesions or wounds Neurologic: A&Ox4, CN2/12 intact, cerebral palsy Recent significant lab and radiology results: none Discharge therapy: Medications: Reconciled Diet: Diabetic Activity: As tolerated Follow up: Quality Control Associate Dr. Cortez and PCP Yamileth Major MD Medicine PGY1 I saw and examined patient with the resident, Dr. Major. Agree with management and plans for discharge as we discussed. Extracted from:Title: CCU History and Physical Author: Nereida Henao MD Date: 01/10/16 Impression and Plan Pt is a 70 yo male w/ pmh of HTN, HLD, IDDMT2, CAD s/p CABGx2 and DESx6, and diastolic CHF w/ last LVEF of 55-60% who presented to the ED w/ right sided chest pain described as a "muscle cramp" onset yesterday w/ negative trop x 1, unremarkable cxr, and stable vitals in the ED admitted for ACS rule out. Problem List: - unstable angina - CAD s/p CABGx2 and DESx6 - Diastolic HF - HTN - HLD - IDDMT2 - Diabetic neuropathy #Unstable angina - Cardiac monitoring and Telemtetr - Trop x 1 negative - Will continue to trend cardiac enzymes - ASA 324mg given in ED - NTG PRN ordered. Pt currently chest pain free. - NPO for possible cath today #CAD s/p CABG and [place] - Continue atorvastatin 40mg, ASA 81mg, plavix 75mg - Continue metoprolol and lisinopril #Diastolic HF - Continue Lasix 40mg PO daily - TTE pending - Strict I&Os #HTN - continue home dose metoprolol 50mg and lisinopril 20mg and Imdur 90mg #HLD - Continue home dose atorvastatin 40mg #IDDMT2 - Continue novolin 70/30 65 U in the AM and 45 U in the PM - Medium dose sliding scale - HgbA1c pending - Gabapentin 600mg BID #Ppx - PPI for PUD ppx - Ambulation/GIRISH/SCD for DVT ppx 01/11/2016 [facility] Plan of Care No Data Provided for This Section Social History Social History Date Source Social History ElementQualifiersDate Reported Last Colonoscopy: . has appointment on 08/2016Aug 14, 2016 Ethnicity . Status , Is tajik your primary language? Yes Aug 14, 2016 children . 5 Aug 14, 2016 Flu Vaccine: . 08/14/16 Aug 14, 2016 Tobacco Use: . Are you a: never smoker Aug 14, 2016 Do you have pets? . Status: No Aug 14, 2016 Marital Status: . Aug 14, 2016 Caffeine intake? . Status: Yes, What type: Coffee, Soft Drinks Aug 14, 2016 Do you exercise? . Answer: Yes, Type: walking Aug 14, 2016 Do you drink alcohol? . Status: Yes, Type: Beer, How often? Rarely Aug 14, 2016 08/14/2016 [facility] Social History TypeResponse Substance Abuse Use: None. Sexual Sexually active: No. Sexually active at age 16 Years. Partner with STD? No. Uses condoms: No. History of sexual abuse: No. Sex Mutually Satisfying: No. Change in Libido: Yes. Self Breast Exam Yes. Testicular Self Exam No. Menstrual Period Started: No. Exercise Exercise duration: 90. Exercise frequency: 5-6 times/week. Self assessment: Fair condition. Exercise type: Walking. 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 Activity level: Occasional physical work. Operates hazardous equipment: No. Alcohol Past Smoking Status Never smoker; Exposure to Tobacco Smoke None; Cigarette Smoking Last 365 Days No; Reg Smoking Cessation Counseling No 12/14/2014 [facility] Social History TypeResponse Substance Abuse Use: None. Sexual Sexually active: No. Sexually active at age 16 Years. Partner with STD? No. Uses condoms: No. History of sexual abuse: No. Sex Mutually Satisfying: No. Change in Libido: Yes. Self Breast Exam Yes. Testicular Self Exam No. Menstrual Period Started: No. Exercise Exercise duration: 90. Exercise frequency: 5-6 times/week. Self assessment: Fair condition. Exercise type: Walking. 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 Activity level: Occasional physical work. Operates hazardous equipment: No. Alcohol Past, Type Beer, Wine, Liquor.1 Smoking Status Former smoker; Ready to change: No; Concerns about tobacco use in household: No; Exposure to Tobacco Smoke None; Cigarette Smoking Last 365 Days No; Reg Smoking Cessation Counseling Yes; Other Tobacco Frequency stopped 10yrs ago; entered on: 03/14/17 16 pack every other day 12/14/2014 [facility] Family History Value Date Source QualifierDescriptionCommentDate Reported Maternal Grandmother Comment not available Aug 14, 2016 Paternal Grandmother Comment not available Aug 14, 2016 Siblings alive Comment not available Aug 14, 2016 Maternal Grandfather Comment not available Aug 14, 2016 Children Comment not available Aug 14, 2016 Father Comment not available Aug 14, 2016 Paternal Grandfather Comment not available Aug 14, 2016 Mother Comment not available Aug 14, 2016 Other: Comment not available Aug 14, 2016 08/17/2016 [facility] QualifierDescriptionCommentDate Reported Maternal Grandmother Comment not available May 08, 2016 Paternal Grandmother Comment not available May 08, 2016 Siblings alive Comment not available May 08, 2016 Maternal Grandfather Comment not available May 08, 2016 Children Comment not available May 08, 2016 Father Comment not available May 08, 2016 Paternal Grandfather Comment not available May 08, 2016 Mother Comment not available May 08, 2016 Other: Comment not available May 08, 2016 05/11/2016 [facility] QualifierDescriptionCommentDate Reported Maternal Grandmother Comment not available February 22, 2016 Paternal Grandmother Comment not available February 22, 2016 Siblings alive Comment not available February 22, 2016 Maternal Grandfather Comment not available February 22, 2016 Children Comment not available February 22, 2016 Father Comment not available February 22, 2016 Paternal Grandfather Comment not available February 22, 2016 Mother Comment not available February 22, 2016 Other: Comment not available February 22, 2016 02/24/2016 [facility] Advance Directives No Data Provided for This Section Functional Status No Data Provided for This Section
--- OUTSIDE RECORDS SUMMARY | 2019-04-17 10:33 | XMS REPORT ---
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 Problem Coronary artery disease involving [place] coronary artery of [place] heart with angina pectoris I25.119 Active Problem S/P coronary artery stent placement Z95.5 Active Problem BMI 37.0-37.9, adult Z68.37 Active Problem 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.29 Active Problem Tremor R25.1 Active Problem Poor balance R26.89 Active Problem Gait abnormality R26.9 Active Problem BMI 36.0-36.9,adult Z68.36 Active Problem PVD (peripheral vascular disease) I73.9 Active Problem Frequent falls R29.6 Active Problem Essential hypertension I10 Active Problem Parkinsons G20 Active Problem Risk for falls Z91.81 Active Problem Type 2 diabetes mellitus with hyperglycemia E11.65 Active Problem Tinnitus of both ears H93.13 Active Problem Mixed hyperlipidemia E78.2 Active Problem Type 2 diabetes mellitus with diabetic peripheral angiopathy without gangrene E11.51 Active Problem 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 Active Problem 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 Problem Constipation, unspecified constipation type K59.00 Active Problem Sciatica, right M54.31 Active Problem Microalbuminuria R80.9 Active Problem Depression, unspecified depression type F32.9 Active Medications Medication Code System Code Instructions Start Date End Date Status Dosage Glimepiride [facility] 30306477707 4 mg by mouth am April 08, 2018 Active 1 tablet with breakfast or the first main meal of the day Results No Known Results Summary Purpose eClinicalWorks Submission
--- OUTSIDE RECORDS SUMMARY | 2019-04-17 10:33 | XMS REPORT ---
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 Problem Parkinsons G20 Active Problem Coronary artery disease involving [place] coronary artery of [place] heart with angina pectoris I25.119 Active Problem [...] Depression, unspecified depression type F32.9 Active Problem History of [place] (myocardial infarction) I25.2 Active Problem Non morbid obesity due to excess calories E66.09 Active Problem Constipation, unspecified constipation type K59.00 Active Medications Medication Code System Code Instructions Start Date End Date Status Dosage OneTouch Lancets [facility] 71854364526 - in vitro use tid dx: E11.65, Z79.4 Sep 09, 2017 Active as directed NovoFine [facility] 08241701497 32G X 6 MM intramuscularly use bid dx: E11.65, Z79.4 Sep 09, 2017 Active as directed One Touch/One Touch II Starter NDC 0 - In Vitro use tid dx: E11.65, Z79.4 Sep 09, 2017 Active as directed OneTouch Test NDC 0 - In Vitro use tid dx: E11.65, Z79.4 Sep 09, 2017 Active as directed Results No Known Results Summary Purpose eClinicalWorks Submission
--- OUTSIDE RECORDS SUMMARY | 2019-04-17 10:33 | XMS REPORT ---
Author Author Meenakshi Chaidez Organization [employer]ClinicalWorks Address Unknown Phone Unavailable Care Team Providers Care Manager Global Name Role Phone Meenakshi Chaidez CP Unavailable [...] G20 Active Problem Coronary artery disease involving [place] coronary artery of [place] heart with angina pectoris I25.119 Active Problem [...] depression type F32.9 Active Problem History of [place] (myocardial infarction) I25.2 Active Problem Non morbid obesity due to excess calories E66.09 Active Problem Constipation, unspecified constipation type K59.00 Active Medications No Known Medications Results No Known Results Summary Purpose eClinicalWorks Submission
--- OUTSIDE RECORDS SUMMARY | 2019-04-17 10:33 | XMS REPORT ---
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 16474073425 (70-30) 100 UNIT/ML Subcutaneous 65 units q am and 55 units q pm with food Active as directed Results No Known Results Summary Purpose eClinicalWorks Submission
--- OUTSIDE RECORDS SUMMARY | 2019-04-17 10:33 | XMS REPORT ---
Author Author Cecy Jarrett [facility] eClinicalWorks Address Unknown Phone Unavailable Care Team Providers Care Maintenance Man Name Role Phone Cecy Jarrett Unavailable Allergies, Adverse Reactions, Alerts Substance Reaction Event Type N.K.D.A. 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 Problem 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 Problem [...] Instructions Start Date End Date Status Dosage FreeStyle Sudeep Sensor System [facility] 34254771212 - apply every 3-5 days (DX E11.65) Jul 24, 2018 Active as directed Nitroglycerin ND 89985500663 0.4 MG Sublingual once a day prn Active 1 tablet FreeStyle Sudeep [place] [facility] 96995251288 - read sensor as often as TID (DX E11.65) Jul 24, 2018 Active as directed Metoprolol Succinate ER [facility] 93264692278 25 MG Orally qhs Active 1 tablet Clopidogrel Bisulfate ND 07042164862 75 mg Orally Once a day Active 1 tablet ProAir HFA [facility] 40155768990 108 (90 Base) MCG/ACT Inhalation every 4 hrs prn February 22, 2016 Active 2 puffs as needed OneTouch Test NDC 0 - In Vitro use tid dx: E11, Z79.4 Sep 09, 2017 Active as directed Atorvastatin Calcium ND 61723617380 40 mg Orally Once a day Inactive 1 tablet Amlodipine Besylate ND 54345655451 5 MG Orally Once a day Active 1 tablet Metoprolol Succinate ER ND 04466822024 50 mg Orally Once a day in the am Active 1 tablet OneTouch Lancets [facility] 25121431877 - in vitro use tid dx: , Z79.4 Sep 09, 2017 Active as directed Furosemide ND 23926882594 40 MG Orally Once a day Active 1 tablet Linzess [facility] [address]-58 145 prn Active TAKE 1 CAPSULE BY MOUTH EVERY DAY UltiCare Insulin Syringe [facility] 10956074384 29G X 1/2 subcutaneously as directed 65 units am and 45 units pm Sep 30, 2017 Active as directed NovoFine [facility] 22880820125 32G X 6 MM intramuscularly use bid dx: , Z79.4 Sep 09, 2017 Active as directed One Touch/One Touch II Starter NDC 0 - In Vitro use tid dx: , Z79.4 Sep 09, 2017 Active as directed Novolin 70/30 PenFill ND 0 (70-30) 100 UNIT/ML Subcutaneous 65 units in am, 55 units at night March 19, 2018 Active as directed Glimepiride [facility] 94925022539 4 mg by mouth am April 08, 2018 Active 1 tablet with breakfast or the first main meal of the day Rosuvastatin Calcium [facility] 99726940695 40 mg Orally Once a day Aug 08, 2018 Active 1 tablet Sertraline HCl [facility] 36439718152 25 MG orally once a day Active 1 tablet Ranexa [facility] [address]-20 1000 Orally Twice a day Active 1 tablet Gabapentin [facility] 37337394196 600 MG by mouth twice a day (bid) March 06, 2018 Active 1 tablet Aspir-81 [facility] 48568817086 81 MG Orally Once a day Active 1 tablet Isosorbide Mononitrate [facility] 88504428648 120 MG Orally Once a day Active 1 tablet Vital Signs Date/Time: Aug 08, 2018 BMI 37.93 Index Weight 235 lbs Height 66 in Cardiac Monitoring Heart Rate 55 /min Blood Pressure Diastolic 72 mm Hg Blood Pressure Systolic 124 mm Hg Results No Known Results Summary Purpose eClinicalWorks Submission
--- OUTSIDE RECORDS SUMMARY | 2019-04-17 10:33 | XMS REPORT ---
Author Author Katt Pizarro [facility] [place] eClinicalWorks Address Unknown Phone Unavailable Care Team Providers Care Biodiesel Production Associate Name Role Phone Katt Pizarro Unavailable Allergies, Adverse Reactions, Alerts Substance Reaction Event Type N.K.D.A. 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 Problem 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.29 Active Problem Sciatica, right M54.31 Active Problem Constipation, unspecified constipation type K59.00 Active Problem Tremor R25.1 Active Problem Poor memory R41.3 Active Problem 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 Problem PVD (peripheral vascular disease) I73.9 Active Problem History of [place] (myocardial infarction) I25.2 Active Problem Mixed hyperlipidemia [...] Date End Date Status Dosage Clopidogrel Bisulfate [facility] [address]-97 75 mg Orally Once a day Active 1 tablet Glimepiride [facility] [address]-90 2 MG Orally Once a day Aug 27, 2016 Active 1 tablet with breakfast or the first main meal of the day Ranexa [facility] [address]-14 500 MG Orally Twice a day Active 1 tablet Furosemide [facility] [address]-31 40 MG Orally Once a day Active 1 tablet ProAir HFA [facility] [address]-54 108 (90 Base) MCG/ACT Inhalation every 4 hrs prn February 22, 2016 Active 2 puffs as needed ProAir HFA [facility] [address]-70 108 (90 Base) MCG/ACT Inhalation every 4 hrs March 21, 2017 Active 2 puffs as needed Isosorbide Mononitrate [facility] [address]-42 120 MG Orally Once a day Active 1 tablet Atorvastatin Calcium [facility] [address]-59 40 mg Orally Once a day Active 1 tablet Zoloft [facility] [address]-88 25 MG Orally Once a day March 21, 2017 Active 1 tablet Gabapentin [facility] 03181233280 300 MG Active 3 CAPSULE THREE TIMES A DAY ORALLY 30 DAYS Nitroglycerin [facility] [address]-49 0.4 MG Sublingual once a day prn Active 1 tablet Novolin 70/30 [facility] [address]-26 (70-30) 100 UNIT/ML Subcutaneous 65 units am and 45 units pm December 23, 2015 Active as directed Aspir-81 [facility] [address]-26 81 MG Orally Once a day Active 1 tablet Toprol XL [facility] [address]-95 50 MG Orally Once a day November 27, 2016 Active 1 tablet Carbidopa-Levodopa ER [facility] [address]-04 25-100 MG Orally twice a day (bid) Active 1 tablet Metoprolol Succinate ER [facility] [address]-96 25 MG Orally Once a day Active 1 tablet Metformin HCl [facility] 63227711246 1000 MG Orally Twice a day Active 1 tablet with meals Lisinopril [facility] [address]-38 20 MG Orally Once a day December 31, 2015 Active 1 tablet Results No Known Results Summary Purpose eClinicalWorks Submission
--- OUTSIDE RECORDS SUMMARY | 2019-04-17 10:33 | XMS REPORT ---
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 Problem BMI 37.0-37.9, adult Z68.37 Active Problem 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.29 Active Problem Tremor R25.1 Active Problem Parkinsons G20 Active Problem CAD (coronary artery disease) I25.10 Active Problem BMI 36.0-36.9,adult Z68.36 Active Problem Essential hypertension I10 Active Problem Tinnitus of both ears H93.13 Active Problem S/P coronary artery stent placement Z95.5 Active Problem Poor memory R41.3 Active Problem 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 Problem Risk for falls Z91.81 Active Problem Cerebral palsy, unspecified type G80.9 Active Problem Mixed hyperlipidemia E78.2 Active Problem 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 Problem PVD (peripheral vascular disease) I73.9 Active Problem 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 Active Problem Depression, unspecified depression type F32.9 Active Problem Microalbuminuria R80.9 Active Problem Non morbid obesity due to excess calories E66.09 Active Problem Type 2 diabetes mellitus with diabetic peripheral angiopathy without gangrene E11.51 Active Medications Medication Code System Code Instructions Start Date End Date Status Dosage Gabapentin NDC 23240892799 300 MG orally three times a day (tid) as needed (prn) Inactive 3 CAPSULES Gabapentin NDC 60636065657 600 MG Orally twice a day (bid) March 06, 2018 Active 1 tablet Results No Known Results Summary Purpose eClinicalWorks Submission
--- OUTSIDE RECORDS SUMMARY | 2019-04-17 10:33 | XMS REPORT ---
Author Author Katt Pizarro [facility] eClinicalWorks Address Unknown Phone Unavailable Care Team Providers Care Hoop Maker Machine Name Role Phone Katt Pizarro Unavailable Allergies, Adverse Reactions, Alerts Substance Reaction Event Type N.K.D.A. 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 Problem Poor memory R41.3 Active Problem Risk for falls Z91.81 Active [...] Start Date End Date Status Dosage OneTouch Test NDC 0 - In Vitro use tid dx: , Z79.4 Sep 09, 2017 Active as directed Zoloft ND 60682181248 25 MG Orally Once a day Active 1 tablet Gabapentin ND 88192801320 300 MG Active 3 CAPSULE THREE TIMES A DAY ORALLY 30 DAYS Novolin 70/30 ND 45550322965 (70-30) 100 UNIT/ML Active DIRECTED 65 UNITS AM AND 45 UNITS PM SUBCUTANEOUS 90 DAYS Metoprolol Succinate ER ND 60118059613 25 MG Orally qhs Active 1 tablet Carbidopa-Levodopa ER ND 47598879534 25-100 MG Orally twice a day (bid) Active 1 tablet Toprol XL ND 99539162948 50 mg Orally Once in am November 27, 2016 Active 1 tablet OneTouch Lancets [facility] 00808062759 - in vitro use tid dx: , Z79.4 Sep 09, 2017 Active as directed UltiCare Insulin Syringe [facility] 71576989716 29G X 1/2 subcutaneously as directed 65 units am and 45 units pm Sep 30, 2017 Active as directed Ranexa [facility] 26459078602 500 MG Orally Twice a day Active 1 tablet Glimepiride [facility] 27858313172 2 MG Active 1 TABLET WITH BREAKFAST OR THE FIRST MAIN MEAL OF THE DAY ONCE A DAY ORALLY 90 DAYS NovoFine [facility] 20221389792 32G X 6 MM intramuscularly use bid dx: , Z79.4 Sep 09, 2017 Active as directed Atorvastatin Calcium ND 98596677067 40 mg Orally Once a day Active 1 tablet Clopidogrel Bisulfate ND 24823071816 75 mg Orally Once a day Active 1 tablet Isosorbide Mononitrate [facility] 44545889575 120 MG Orally Once a day Active 1 tablet Linzess [facility] 76639354610 145 Active TAKE 1 CAPSULE BY MOUTH EVERY DAY Meclizine HCl ND 00008869728 25 MG Orally Once a day Oct 15, 2017 Active 1 tablet as needed Nitroglycerin [facility] 04979121830 0.4 MG Sublingual once a day prn Active 1 tablet One Touch/One Touch II Starter [facility] 0 - In Vitro use tid dx: , Z79.4 Sep 09, 2017 Active as directed Aspir-81 [facility] 95538911420 81 MG Orally Once a day Active 1 tablet ProAir HFA [facility] 80140265412 108 (90 Base) MCG/ACT Inhalation every 4 hrs prn February 22, 2016 Active 2 puffs as needed Furosemide [facility] 35531745566 40 MG Orally Once a day Active 1 tablet Vital Signs Date/Time: Oct 15, 2017 BMI 37.60 Index Weight 233 lbs Height 66 in Cardiac Monitoring Heart Rate 57 /min Blood Pressure Diastolic 70 mm Hg Blood Pressure Systolic 168 mm Hg Results No Known Results Summary Purpose eClinicalWorks Submission
--- OUTSIDE RECORDS SUMMARY | 2019-04-17 10:33 | XMS REPORT ---
Author Author Katt Pizarro [facility] eClinicalWorks Address Unknown Phone Unavailable Care Team Providers Care Records Administrator Name Role Phone Katt Pizarro Unavailable Allergies, Adverse Reactions, Alerts Substance Reaction Event Type N.K.D.A. 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 Problem [...] Start Date End Date Status Dosage Gabapentin [facility] 24713926120 300 MG Active 3 CAPSULE THREE TIMES A DAY ORALLY 30 DAYS Metoprolol Succinate ER [facility] 83333194470 25 MG Orally qhs Active 1 tablet Meclizine HCl ND 07856077196 25 MG Orally Once a day Oct 15, 2017 Active 1 tablet as needed ProAir HFA [facility] 84844612636 108 (90 Base) MCG/ACT Inhalation every 4 hrs prn February 22, 2016 Active 2 puffs as needed Clopidogrel Bisulfate [facility] 14910346262 75 mg Orally Once a day Active 1 tablet Ranexa [facility] 22787614830 500 MG Orally Twice a day Active 1 tablet Atorvastatin Calcium ND 97138107993 40 mg Orally Once a day Active 1 tablet Zoloft [facility] 54810404848 25 MG Orally Once a day Active 1 tablet Linzess [facility] 01372572558 145 Active TAKE 1 CAPSULE BY MOUTH EVERY DAY One Touch/One Touch II Starter NDC 0 - In Vitro use tid dx: E11.65, Z79.4 Sep 09, 2017 Active as directed Glimepiride [facility] 73946168802 2 MG orally twice a day Active 1 tablet NovoFine [facility] 29562159396 32G X 6 MM intramuscularly use bid dx: E11.65, Z79.4 Sep 09, 2017 Active as directed OneTouch Test NDC 0 - In Vitro use tid dx: E11.65, Z79.4 Sep 09, 2017 Active as directed Carbidopa-Levodopa ER [facility] 67252791998 25-100 MG Orally twice a day (bid) Active 1 tablet Toprol XL [facility] 82835543102 50 mg Orally Once in am November 27, 2016 Active 1 tablet UltiCare Insulin Syringe [facility] 54162619428 29G X 1/2 subcutaneously as directed 65 units am and 45 units pm Sep 30, 2017 Active as directed Novolin 70/30 [facility] 41156668605 (70-30) 100 UNIT/ML Active DIRECTED 65 UNITS AM AND 45 UNITS PM SUBCUTANEOUS 90 DAYS Furosemide ND 21764408035 40 MG Orally Once a day Active 1 tablet OneTouch Lancets [facility] 62803727715 - in vitro use tid dx: E11.65, Z79.4 Sep 09, 2017 Active as directed Aspir-81 [facility] 68330038285 81 MG Orally Once a day Active 1 tablet Isosorbide Mononitrate [facility] 02130704009 120 MG Orally Once a day Active 1 tablet Nitroglycerin [facility] 16572771712 0.4 MG Sublingual once a day prn Active 1 tablet Vital Signs Date/Time: Oct 17, 2017 BMI 37.60 Index Weight 233 lbs Height 66 in Cardiac Monitoring Heart Rate 52 /min Blood Pressure Diastolic 64 mm Hg Blood Pressure Systolic 120 mm Hg Results No Known Results Summary Purpose eClinicalWorks Submission
--- OUTSIDE RECORDS SUMMARY | 2019-04-17 10:33 | XMS REPORT ---
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
--- OUTSIDE RECORDS SUMMARY | 2019-04-17 10:33 | XMS REPORT ---
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
--- OUTSIDE RECORDS SUMMARY | 2019-04-17 10:33 | XMS REPORT ---
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
--- OUTSIDE RECORDS SUMMARY | 2019-04-17 10:33 | XMS REPORT ---
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
--- OUTSIDE RECORDS SUMMARY | 2019-04-17 10:33 | XMS REPORT ---
Author Cecy George [facility] eClinicalWorks Address Unknown Phone Unavailable Care Team Providers Care Medical Asst Name Role Phone Cecy Jarrett Unavailable Allergies, Adverse Reactions, Alerts Substance Reaction Event Type N.K.D.A. 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 Problem [...] Start Date End Date Status Dosage Glimepiride [facility] 63738696547 4 mg by mouth with dinner April 08, 2018 Active 1 tablet with breakfast or the first main meal of the day Rosuvastatin Calcium ND 71137263824 40 mg Orally Once a day Aug 08, 2018 Active 1 tablet Metoprolol Succinate ER ND 36298925766 100 MG by mouth Once a day in the am Active 1 tablet Clopidogrel Bisulfate ND 20104956993 75 mg Orally Once a day Active 1 tablet Ranexa [facility] [address]-82 1000 Orally Twice a day Active 1 tablet Sertraline HCl [facility] 32542432846 25 MG orally once a day Active 1 tablet Novolin 70/30 PenFill ND 0 (70-30) 100 UNIT/ML Subcutaneous 65 units in am, 55 units at night March 19, 2018 Active as directed Aspir-81 [facility] 47366301198 81 MG Orally Once a day Active 1 tablet Furosemide ND 59228682395 40 MG Orally Once a day Active 1 tablet OneTouch Test [facility] 0 - In Vitro use tid dx: E11.65, Z79.4 Sep 09, 2017 Active as directed ProAir HFA [facility] 29769282180 108 (90 Base) MCG/ACT Inhalation every 4 hrs prn February 22, 2016 Active 2 puffs as needed Metoprolol Succinate ER ND 39937353282 25 MG Orally qhs Active 1 tablet UltiCare Insulin Syringe [facility] 05817220852 29G X 1/2 subcutaneously as directed 65 units am and 45 units pm Sep 30, 2017 Active as directed One Touch/One Touch II Starter ND 0 - In Vitro use tid dx: E11.65, Z79.4 Sep 09, 2017 Active as directed OneTouch [facility] ND 96959826213 - in vitro use tid dx: E11.65, Z79.4 Sep 09, 2017 Active as directed Nitroglycerin ND 34166183317 0.4 MG Sublingual once a day prn Active 1 tablet Amlodipine Besylate ND 72931013996 5 MG Orally Once a day Active 1 tablet NovoFine ND 16358903604 32G X 6 MM intramuscularly use bid dx: E11.65, Z79.4 Sep 09, 2017 Active as directed Toprol XL ND 77147819876 50 mg Orally Once in am Active 1 tablet Isosorbide Mononitrate ND 13768174159 120 MG Orally Once a day Active 1 tablet Novolin 70/30 [facility] 61484893495 (70-30) 100 UNIT/ML Subcutaneous 68 units q am and 52 units q pm with food Active as directed Gabapentin [facility] 01668545681 600 MG by mouth twice a day (bid) March 06, 2018 Active 1 tablet Linzess [facility] [address]-79 145 prn Active TAKE 1 CAPSULE BY MOUTH EVERY DAY Vital Signs Date/Time: Sep 08, 2018 BMI 38.41 Index Weight 238 lbs Height 66 in Cardiac Monitoring Heart Rate 56 /min Blood Pressure Diastolic 62 mm Hg Blood Pressure Systolic 138 mm Hg Results No Known Results Summary Purpose eClinicalWorks Submission
--- OUTSIDE RECORDS SUMMARY | 2019-04-17 10:33 | XMS REPORT ---
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
--- OUTSIDE RECORDS SUMMARY | 2019-04-17 10:33 | XMS REPORT ---
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
--- OUTSIDE RECORDS SUMMARY | 2019-04-17 10:33 | XMS REPORT ---
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
--- OUTSIDE RECORDS SUMMARY | 2019-04-17 10:33 | XMS REPORT ---
Author Author Justine Art Organization eClinicalWorks Address Unknown Phone Unavailable Care Team Providers Care Geographic Information System Analyst Name Role Phone Justine Art CP Unavailable Allergies No Known Allergies Problems Problem Type Condition Code Onset Dates Condition Status Problem Depression, unspecified depression type F32.9 Active Assessment Mixed hyperlipidemia E78.2 Active Problem Constipation, unspecified constipation type K59.00 Active Problem History of [place] (myocardial infarction) I25.2 Active Problem Sciatica, right M54.31 Active Problem Tremor R25.1 Active Problem BMI 37.0-37.9, adult Z68.37 Active Problem CAD (coronary artery disease) I25.10 Active Problem Risk for falls Z91.81 Active Problem Essential hypertension I10 Active Problem S/P coronary artery stent placement Z95.5 Active Problem Parkinsons G20 Active Problem 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
--- OUTSIDE RECORDS SUMMARY | 2019-04-17 10:33 | XMS REPORT ---
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
--- OUTSIDE RECORDS SUMMARY | 2019-04-17 10:34 | XMS REPORT ---
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 Problem BMI 37.0-37.9, adult Z68.37 Active Problem S/P coronary artery stent placement Z95.5 Active Problem Tremor R25.1 Active Problem 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 Problem 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.29 Active Problem Tinnitus of both ears H93.13 Active Problem Parkinsons G20 Active Problem PVD (peripheral vascular disease) I73.9 Active Problem BMI 36.0-36.9,adult Z68.36 Active Problem Type 2 diabetes mellitus without complication, without long-term current use of insulin E11.9 Active Problem Essential hypertension I10 Active Problem Cerebral palsy, unspecified type G80.9 Active Problem Poor memory R41.3 Active Problem CAD (coronary artery disease) I25.10 Active Problem Risk for falls Z91.81 Active Problem 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 Problem Non morbid obesity due to excess calories E66.09 Active Problem 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
--- OUTSIDE RECORDS SUMMARY | 2019-04-17 10:34 | XMS REPORT ---
Author Cecy George [facility] eClinicalWorks Address Unknown Phone Unavailable Care Team Providers Care Psychiatric Social Worker Supervisor Name Role Phone Cecy Jarrett CP Unavailable Allergies, Adverse Reactions, Alerts Substance Reaction Event Type N.K.D.A. Info Not Available Non Drug Allergy Problems Problem Type Condition Code Onset Dates Condition Status Assessment SOB (shortness of breath) R06.02 Active Assessment Chest pain, unspecified type R07.9 Active Assessment S/P coronary artery stent placement Z95.5 Active Assessment History of [place] (myocardial infarction) I25.2 Active Assessment Essential hypertension I10 Active Assessment Dizziness R42 Active Problem Microalbuminuria R80.9 Active Problem History of [place] (myocardial infarction) I25.2 Active Problem Constipation, unspecified constipation type K59.00 Active Problem Insulin long-term use Z79.4 Active Problem Sciatica, right M54.31 Active Problem 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 Problem Poor memory R41.3 Active Problem Parkinsons G20 Active Problem CAD (coronary artery disease) I25.10 Active Problem Essential hypertension I10 Active Problem S/P coronary artery stent placement Z95.5 Active Problem Tinnitus of both ears H93.13 Active Problem 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 72135747712 50 mg Orally Once a day in the am Active 1 tablet Clopidogrel Bisulfate [facility] 08183219192 75 mg Orally Once a day Active 1 tablet Isosorbide Mononitrate [facility] 98853888001 120 MG Orally Once a day Active 1 tablet ProAir HFA [facility] 30248991708 108 (90 Base) MCG/ACT Inhalation every 4 hrs prn February 22, 2016 Active 2 puffs as needed OneTouch Test NDC 0 - In Vitro use tid dx: E11.65, Z79.4 Sep 09, 2017 Active as directed OneTouch Lancets [facility] 50516843874 - in vitro use tid dx: E11.65, Z79.4 Sep 09, 2017 Active as directed Novolin 70/30 ND 85927752672 (70-30) 100 UNIT/ML Subcutaneous as directed, NEEDS TO BE SEEN BEFORE NEXT REFILL Active DIRECTED 65 UNITS AM AND 45 UNITS PM SUBCUTANEOUS 90 DAYS Meclizine HCl [facility] 23462917001 25 MG Orally Once a day Oct 15, 2017 Active 1 tablet as needed Metoprolol Succinate ER ND 49809671584 25 MG Orally qhs Active 1 tablet Furosemide ND 60603244015 40 MG Orally Once a day Active 1 tablet Carbidopa-Levodopa ER [facility] 93901419093 25-100 MG Orally twice a day (bid) Active 1 tablet One Touch/One Touch II Starter ND 0 - In Vitro use tid dx: E11.65, Z79.4 Sep 09, 2017 Active as directed Gabapentin [facility] 69031797843 600 MG by mouth twice a day (bid) March 06, 2018 Active 1 tablet Amlodipine Besylate [facility] 24453254614 5 MG Orally Once a day Active 1 tablet Nitroglycerin [facility] 82704883333 0.4 MG Sublingual once a day prn Active 1 tablet Novolin 70/30 PenFill ND 0 (70-30) 100 UNIT/ML Subcutaneous daily March 19, 2018 Active 65 units in the morning and 45 units in the evening Aspir-[address] [facility] 51700484497 81 MG Orally Once a day Active 1 tablet Ranexa [facility] 62911560792 500 MG Orally Twice a day Active 1 tablet Sertraline HCl [facility] 87230342233 25 MG orally once a day Active 1 tablet Glimepiride [facility] 69034031192 4 mg by mouth Once a day April 08, 2018 Active 1 tablet with breakfast or the first main meal of the day UltiCare Insulin Syringe [facility] 92192577567 29G X 1/2 subcutaneously as directed 65 units am and 45 units pm Sep 30, 2017 Active as directed Atorvastatin Calcium [facility] 14667734605 40 mg Orally Once a day Active 1 tablet NovoFine [facility] 74916612181 32G X 6 MM intramuscularly use bid dx: E11.65, Z79.4 Sep 09, 2017 Active as directed Linzess [facility] [address]-26 145 prn Active TAKE 1 CAPSULE BY MOUTH EVERY DAY Vital Signs Date/Time: May 21, 2018 BMI 37.60 Index Weight 233 lbs Height 66 in Cardiac Monitoring Heart Rate 66 /min Blood Pressure Diastolic 58 mm Hg Blood Pressure Systolic 125 mm Hg Results Name Result Date Reference Range Unit Abnormality Flag GLUCOSE FINGER STICK ----GLUCOSE 163 [id number] CBC ----MCV 92.2 20180521 ----Hematocrit 39.0 20180521 ----MCHC 31.3 20180521 ----MCH 28.8 [id number] ----WBC 8.6 [id number] ----Hemoglobin 12.2 [id number] ----RBC 4.23 [id number] ----RDW 14.2 [id number] ----NEUTROPHILS mid-0.6,gra-6.3 20180521 ----Platelets 174 [id number] EKG Chest 2 views- Xray Summary Purpose eClinicalWorks Submission
--- OUTSIDE RECORDS SUMMARY | 2019-04-17 10:34 | XMS REPORT ---
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
--- OUTSIDE RECORDS SUMMARY | 2019-04-17 10:34 | XMS REPORT ---
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 46100106730 (70-30) 100 UNIT/ML Subcutaneous as directed Inactive DIRECTED 65 UNITS AM AND 45 UNITS PM SUBCUTANEOUS 90 DAYS Humalog Mix 75/25 Pen NDC 0 (75-25) 100 UNIT/ML subcutaneously daily March 17, 2018 Inactive 65 UNITS AM AND 45 UNITS PM Novolin 70/30 PenFill NDC 0 (70-30) 100 UNIT/ML Subcutaneous daily March 19, 2018 Active 65 units in the morning and 45 units in the evening Results No Known Results Summary Purpose eClinicalWorks Submission
--- OUTSIDE RECORDS SUMMARY | 2019-04-17 10:34 | XMS REPORT ---
Author Author Cecy Jarrett [facility] eClinicalWorks Address Unknown Phone Unavailable Care Team Providers Care Math Coach Name Role Phone Cecy Jarrett Unavailable Allergies, Adverse Reactions, Alerts Substance Reaction Event Type N.K.D.A. 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 Problem [...] Problem Tinnitus of both ears H93.13 Active Assessment Frequent falls R29.6 Active Problem Mixed hyperlipidemia E78.2 Active Assessment Gait abnormality R26.9 Active Problem Type 2 diabetes mellitus with diabetic peripheral angiopathy without gangrene E11.51 Active Problem 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 Active Assessment Parkinsons G20 Active Problem 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 Problem Constipation, unspecified constipation type K59.00 Active Problem Sciatica, right M54.31 Active Problem Microalbuminuria R80.9 Active Problem Depression, unspecified depression type F32.9 Active Medications Medication Code System Code Instructions Start Date End Date Status Dosage Novolin 70/30 PenFill ND 0 (70-30) 100 UNIT/ML Subcutaneous daily March 19, 2018 Active 65 units in the morning and 45 units in the evening Sertraline HCl [facility] 01266546935 25 MG orally once a day Active 1 tablet One Touch/One Touch II Starter ND 0 - In Vitro use tid dx: E11.65, Z79.4 Sep 09, 2017 Active as directed OneTouch Lancets [facility] 53812013393 - in vitro use tid dx: E11.65, Z79.4 Sep 09, 2017 Active as directed Meclizine HCl [facility] 69455478511 25 MG Orally Once a day Oct 15, 2017 Active 1 tablet as needed Clopidogrel Bisulfate [facility] 99156093417 75 mg Orally Once a day Active 1 tablet Atorvastatin Calcium [facility] 23765051524 40 mg Orally Once a day Active 1 tablet FreeStyle Sudeep Sensor System [facility] 53978518683 - apply every 3-5 days (DX E11.65) Jul 24, 2018 Active as directed UltiCare Insulin Syringe [facility] 72031904412 29G X 1/2 subcutaneously as directed 65 units am and 45 units pm Sep 30, 2017 Active as directed Amlodipine Besylate [facility] 12344972916 5 MG Orally Once a day Active 1 tablet Metoprolol Succinate ER ND 90458684368 50 mg Orally Once a day in the am Active 1 tablet Glimepiride [facility] 19853730565 4 mg by mouth qd LAST REFILL, NEEDS TO BE SEEN April 08, 2018 Active 1 tablet with breakfast or the first main meal of the day Ranexa [facility] [address]-62 1000 Orally Twice a day Active 1 tablet Aspir-81 [facility] 07334965733 81 MG Orally Once a day Active 1 tablet FreeStyle Sudeep [place] [facility] 13828601885 - read sensor as often as TID (DX E11.65) Jul 24, 2018 Active as directed Linzess [facility] [address]-69 145 prn Active TAKE 1 CAPSULE BY MOUTH EVERY DAY Furosemide [facility] 21907291621 40 MG Orally Once a day Active 1 tablet ProAir HFA [facility] 37253183684 108 (90 Base) MCG/ACT Inhalation every 4 hrs prn February 22, 2016 Active 2 puffs as needed OneTouch Test ND 0 - In Vitro use tid dx: E11.65, Z79.4 Sep 09, 2017 Active as directed NovoFine ND 96733961027 32G X 6 MM intramuscularly use bid dx: E11.65, Z79.4 Sep 09, 2017 Active as directed Nitroglycerin [facility] 36316438441 0.4 MG Sublingual once a day prn Active 1 tablet Novolin 70/30 [facility] 35275255140 (70-30) 100 UNIT/ML Subcutaneous as directed, NEEDS TO BE SEEN BEFORE NEXT REFILL Active DIRECTED 65 UNITS AM AND 45 UNITS PM SUBCUTANEOUS 90 DAYS Isosorbide Mononitrate [facility] 23370530101 120 MG Orally Once a day Active 1 tablet Carbidopa-Levodopa ER [facility] 48521049383 25-100 MG Orally twice a day (bid) Active 1 tablet Toprol XL [facility] 82058539801 50 mg Orally Once in am Active 1 tablet Gabapentin [facility] 28407226423 600 MG by mouth twice a day (bid) March 06, 2018 Active 1 tablet Metoprolol Succinate ER [facility] 26085376250 25 MG Orally qhs Active 1 tablet Vital Signs Date/Time: Jul 24, 2018 BMI 37.93 Index Weight 235 lbs Height 66 in Cardiac Monitoring Heart Rate 57 /min Blood Pressure Diastolic 80 mm Hg Blood Pressure Systolic 142 mm Hg Results No Known Results Summary Purpose eClinicalWorks Submission
--- OUTSIDE RECORDS SUMMARY | 2019-04-17 10:34 | XMS REPORT ---
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
--- OUTSIDE RECORDS SUMMARY | 2019-04-17 10:34 | XMS REPORT ---
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
--- OUTSIDE RECORDS SUMMARY | 2019-04-17 10:34 | XMS REPORT ---
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
--- OUTSIDE RECORDS SUMMARY | 2019-04-17 10:34 | XMS REPORT ---
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
--- OUTSIDE RECORDS SUMMARY | 2019-04-17 10:34 | XMS REPORT ---
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
--- OUTSIDE RECORDS SUMMARY | 2019-04-17 10:34 | XMS REPORT ---
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9,adult Z68.36 Active Problem Acute left-sided low back pain with left-sided sciatica M54.42 Active Problem PVD (peripheral vascular disease) I73.9 Active Problem Tinnitus of both ears H93.13 Active Problem Parkinsons G20 Active Problem Poor balance R26.89 Active Problem Gait abnormality R26.9 Active Problem Type 2 diabetes mellitus with diabetic peripheral angiopathy without gangrene E11.51 Active Problem Microalbuminuria R80.9 Active Problem 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 Problem Mixed hyperlipidemia E78.2 Active Problem Sciatica, right M54.31 Active Problem Poor memory R41.3 Active Problem Depression, unspecified depression type F32.9 Active Problem Constipation, unspecified constipation type K59.00 Active Medications No Known Medications Results No Known Results Summary Purpose eClinicalWorks Submission
--- OUTSIDE RECORDS SUMMARY | 2019-04-17 10:34 | XMS REPORT ---
Author Cecy George [facility] eClinicalWorks Address Unknown Phone Unavailable Care Team Providers Care Vice President Fixed Income Name Role Phone Cecy Jarrett CP Unavailable Allergies, Adverse Reactions, Alerts Substance Reaction Event Type N.K.D.A. 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 Active Assessment Screening for colon cancer Z12.11 Active Assessment Screening for prostate cancer Z12.5 Active Assessment Type 2 diabetes mellitus with hyperglycemia E11.65 Active Assessment Parkinsons G20 Active Assessment Encntr for general adult medical exam w/o abnormal findings Z00.00 Active Assessment Poor memory R41.3 Active Assessment Tremor R25.1 Active Problem History of [place] (myocardial infarction) I25.2 Active Problem Insulin long-term use Z79.4 Active Problem Non morbid obesity due to excess calories E66.09 Active Problem 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 Problem Poor memory R41.3 Active Problem 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 Active Problem S/P coronary artery stent placement Z95.5 Active Problem BMI 37.0-37.9, adult Z68.37 Active Problem 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.29 Active Problem Tremor R25.1 Active Problem Poor balance R26.89 Active Problem Gait abnormality R26.9 Active Problem BMI 36.0-36.9,adult Z68.36 Active Problem PVD (peripheral vascular disease) I73.9 Active Assessment Constipation, unspecified constipation type K59.00 Active Problem Frequent falls R29.6 Active Problem Essential hypertension I10 Active Assessment History of [place] (myocardial infarction) I25.2 Active Problem Parkinsons G20 Active Assessment Sciatica, right M54.31 Active Problem Risk for falls Z91.81 Active Assessment 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.29 Active Problem Type 2 diabetes mellitus with hyperglycemia E11.65 Active Assessment 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 Active Problem Tinnitus of both ears H93.13 Active Assessment S/P coronary artery stent placement Z95.5 Active Problem Mixed hyperlipidemia E78.2 Active Assessment 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 Problem Type 2 diabetes mellitus with diabetic peripheral angiopathy without gangrene E11.51 Active Assessment Mixed hyperlipidemia E78.2 Active Problem 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 Active Assessment PVD (peripheral vascular disease) I73.9 Active Problem 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 Assessment Depression, unspecified depression type F32.9 Active Problem Constipation, unspecified constipation type K59.00 Active Assessment Type 2 diabetes mellitus with diabetic peripheral angiopathy without gangrene E11.51 Active Problem Sciatica, right M54.31 Active Problem Microalbuminuria R80.9 Active Problem Depression, unspecified depression type F32.9 Active Medications Medication Code System Code Instructions Start Date End Date Status Dosage Aspir-81 [facility] 86466486698 81 MG Orally Once a day Active 1 tablet Amlodipine Besylate [facility] 56972354632 2.5 MG by mouth Once a day Active 1 tablet Metoprolol Succinate ER [facility] 36869968346 50 MG by mouth twice a day (bid) Active 1 tablet Rosuvastatin Calcium [facility] 87299450324 40 mg Orally Once a day Aug 08, 2018 Active 1 tablet Clopidogrel Bisulfate [facility] 93002568051 75 mg Orally Once a day Active 1 tablet Linzess [facility] [address]-99 145 prn Active TAKE 1 CAPSULE BY MOUTH EVERY DAY Ranexa [facility] [address]-32 1000 Orally Twice a day Active 1 tablet Furosemide [facility] 17915833650 40 MG Orally Once a day Active 1 tablet ProAir HFA [facility] 12271351361 108 (90 Base) MCG/ACT Inhalation every 4 hrs prn February 22, 2016 Active 2 puffs as needed Nitroglycerin [facility] 94036072810 0.4 MG Sublingual once a day prn Active 1 tablet OneTouch Test ND 0 - In Vitro use tid dx: E11.65, Z79.4 Sep 09, 2017 Active as directed Gabapentin [facility] 36309965387 600 MG by mouth twice a day (bid) Active 1 tablet One Touch/One Touch II Starter ND 0 - In Vitro use tid dx: E11.65, Z79.4 Sep 09, 2017 Active as directed Sertraline HCl [facility] 74425898710 25 MG orally once a day Active 1 tablet Metoprolol Succinate ER [facility] [address]-92 25 MG by mouth at noon Active 1 tablet Isosorbide Mononitrate [facility] 71927259944 120 MG Orally Once a day Active 1 tablet NovoFine [facility] 99911693690 32G X 6 MM intramuscularly use bid dx: E11.65, Z79.4 Sep 09, 2017 Active as directed UltiCare Insulin Syringe [facility] 55608991983 29G X 1/2 subcutaneously as directed 65 units am and 45 units pm Sep 30, 2017 Active as directed Glimepiride [facility] 12804565714 4 mg by mouth am Active 1 tablet with breakfast or the first main meal of the day Novolin 70/30 [facility] [address]-04 (70-30) 100 UNIT/ML Subcutaneous 68 units q am and 52 units q pm with food Active as directed Pending sale to [facility] 42471654282 - in vitro use tid dx: E11.65, Z79.4 Sep 09, 2017 Active as directed Vital Signs Date/Time: December 04, 2018 BMI 37.93 Index Weight 235 lbs Height 66 in Cardiac Monitoring Heart Rate 52 /min Blood Pressure Diastolic 52 mm Hg Blood Pressure Systolic 122 mm Hg Results No Known Results Summary Purpose eClinicalWorks Submission
--- OUTSIDE RECORDS SUMMARY | 2019-04-17 10:34 | XMS REPORT ---
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
--- OUTSIDE RECORDS SUMMARY | 2019-04-17 10:34 | XMS REPORT ---
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
--- OUTSIDE RECORDS SUMMARY | 2019-04-17 10:34 | XMS REPORT ---
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 Problem BMI 37.0-37.9, adult Z68.37 Active Problem S/P coronary artery stent placement Z95.5 Active Problem Tremor R25.1 Active Problem 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
--- OUTSIDE RECORDS SUMMARY | 2019-04-17 10:34 | XMS REPORT ---
Author Author Abdiaziz Watkins eClinicalWorks Address Unknown Phone Unavailable Care Team Providers Care Disk Recoater Name Role Phone Abdiaziz Watkins Unavailable Allergies, Adverse Reactions, Alerts Substance Reaction Event Type N.K.D.A. 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 Problem BMI 37.0-37.9, adult Z68.37 Active Problem S/P coronary artery stent placement Z95.5 Active Problem Tremor R25.1 Active Problem 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 [...] Start Date End Date Status Dosage Gabapentin [facility] 08589331266 600 MG Orally twice a day (bid) March 06, 2018 Active 1 tablet Aspir-81 [facility] 18871249083 81 MG Orally Once a day Active 1 tablet NovoFine [facility] 59109081033 32G X 6 MM intramuscularly use bid dx: E11., Z79.4 Sep 09, 2017 Active as directed One Touch/One Touch II Starter ND 0 - In Vitro use tid dx: , Z79.4 Sep 09, 2017 Active as directed Linzess [facility] 56880916096 145 Active TAKE 1 CAPSULE BY MOUTH EVERY DAY OneTouch Test ND 0 - In Vitro use tid dx: , Z79.4 Sep 09, 2017 Active as directed Clopidogrel Bisulfate [facility] 65491799282 75 mg Orally Once a day Active 1 tablet Nitroglycerin [facility] 83095849153 0.4 MG Sublingual once a day prn Active 1 tablet ProAir HFA [facility] 05023786214 108 (90 Base) MCG/ACT Inhalation every 4 hrs prn February 22, 2016 Active 2 puffs as needed Carbidopa-Levodopa ER [facility] 57101315151 25-100 MG Orally twice a day (bid) Active 1 tablet Ranexa [facility] 16500328731 500 MG Orally Twice a day Active 1 tablet OneTouch Lancets [facility] 25256792993 - in vitro use tid dx: , Z79.4 Sep 09, 2017 Active as directed Atorvastatin Calcium [facility] 00792674917 40 mg Orally Once a day Active 1 tablet Glimepiride [facility] 57373179844 2 MG orally twice a day Active 1 tablet Metoprolol Succinate ER [facility] 94278733262 25 MG Orally qhs Active 1 tablet Meclizine HCl [facility] 56697400435 25 MG Orally Once a day Oct 15, 2017 Active 1 tablet as needed Isosorbide Mononitrate [facility] 95045664045 120 MG Orally Once a day Active 1 tablet Novolin 70/30 [facility] 90667881667 (70-30) 100 UNIT/ML Subcutaneous as directed Active DIRECTED 65 UNITS AM AND 45 UNITS PM SUBCUTANEOUS 90 DAYS Toprol XL [facility] 16760444043 50 mg Orally Once in am November 27, 2016 Active 1 tablet Metoprolol Succinate ER [facility] 55848385726 50 mg Orally Once a day in the am Active 1 tablet UltiCare Insulin Syringe [facility] 13697007609 29G X 1/2 subcutaneously as directed 65 units am and 45 units pm Sep 30, 2017 Active as directed Furosemide [facility] 04626098395 40 MG Orally Once a day Active 1 tablet Zoloft [facility] 09530148263 25 MG Orally Once a day Active 1 tablet Sertraline HCl [facility] 59852646075 25 MG Active TAKE 1 TABLET BY MOUTH DAILY Vital Signs Date/Time: March 14, 2018 BMI 37.76 Index Weight 234 lbs Height 66 in Cardiac Monitoring Heart Rate 61 /min Blood Pressure Diastolic 64 mm Hg Blood Pressure Systolic 120 mm Hg Results Name Result Date Reference Range Unit Abnormality Flag HEMOGLOBIN A1c ----HEMOGLOBIN A1c 8.5 20180314 <5.7 % of total Hgb H VITAMIN D, 1,25 DIHYDROXY LC/MS/MS ----VITAMIN D, 1,25 (OH)2, TOTAL 41 [id number] 18-72 pg/mL ----VITAMIN D3, 1,25 (OH)2 41 73777476 pg/mL ----VITAMIN D2, 1,25 (OH)2 <8 17874030 pg/mL CBC (INCLUDES DIFF/PLT) ----MCHC 33.4 20180314 32.0-36.0 g/dL N ----MCH 30.5 20180314 27.0-33.0 pg N ----PLATELET COUNT 194 [id number] 140-400 Thousand/uL N ----RDW 12.4 11486023 11.0-15.0 % N ----BASOPHILS 0.6 49132052 % N ----ABSOLUTE NEUTROPHILS 5805 20180314 5714-0215 cells/uL N ----ABSOLUTE LYMPHOCYTES 2512 62910161 850-3900 cells/uL N ----MPV 11.5 20180314 7.5-12.5 fL N ----ABSOLUTE BASOPHILS 55 64420977 0-200 cells/uL N ----HEMATOCRIT 36.5 11432427 38.5-50.0 % L ----NEUTROPHILS 63.1 28037132 % N ----MCV 91.3 20180314 80.0-100.0 fL N ----RED BLOOD CELL COUNT 4.00 20180314 4.20-5.80 Million/uL L ----ABSOLUTE MONOCYTES 561 20180314 200-950 cells/uL N ----ABSOLUTE EOSINOPHILS 267 20180314 15-500 cells/uL N ----HEMOGLOBIN 12.2 20180314 13.2-17.1 g/dL L ----EOSINOPHILS 2.9 20180314 % N ----WHITE BLOOD CELL COUNT 9.2 20180314 3.8-10.8 Thousand/uL N ----LYMPHOCYTES 27.3 20180314 % N ----MONOCYTES 6.1 20180314 % N Summary Purpose eClinicalWorks Submission
--- OUTSIDE RECORDS SUMMARY | 2019-04-17 10:34 | XMS REPORT ---
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
--- OUTSIDE RECORDS SUMMARY | 2019-04-17 10:35 | XMS REPORT ---
Author Author Cecy Jarrett Organization [employer] Address Unknown Phone Unavailable Care Team Providers Care Shovel Engineer Name Role Phone Cecy Jarrett CP Unavailable Allergies, Adverse Reactions, Alerts Substance Reaction Event Type N.K.D.A. 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 [facility] Nov 02, 2015 Refill [facility] April 04, 2016 Unknown [facility] Nov 08, 2015 med refill [facility] May 08, 2016 Needs referral [facility] Nov 15, 2015 Unknown [facility] February 27, 2016 Follow up after er [facility] January 25, 2016 cough and congestion [facility] February 22, 2016 Problems Problem Type Condition ICD-9 Code Onset Dates Condition Status Assessment Poor memory R41.3 Active Assessment SOB (shortness of breath) R06.02 Active Assessment BMI 37.0-37.9, adult Z68.37 Active Assessment Tremor R25.1 Active Assessment Abdominal distension R14.0 Active Assessment Bloating R14.0 Active Assessment Mixed hyperlipidemia E78.2 Active Assessment Type 2 diabetes mellitus with hyperglycemia E11.65 Active Assessment 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37 Active Problem History of [place] (myocardial infarction) I25.2 Active Assessment Essential hypertension I10 Active Problem 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.29 Active Assessment 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 Problem Sciatica, right M54.31 Active Problem Constipation, unspecified constipation type K59.00 Active Problem Tremor R25.1 Active Problem Poor memory R41.3 Active Problem PVD (peripheral vascular disease) I73.9 Active Problem Non morbid obesity due to excess calories E66.09 Active Problem Mixed hyperlipidemia E78.2 Active Problem 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 Problem Type 2 diabetes mellitus with hyperglycemia E11.65 Active Problem 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 Problem BMI 36.0-36.9,adult Z68.36 Active Problem S/P coronary artery stent placement Z95.5 Active Medications Medication Code System Code Instructions Start Date End Date Status Dosage Novolin 70/30 [facility] [address]-55 (70-30) 100 UNIT/ML Subcutaneous 65 units am and 45 units pm December 23, 2015 Active as directed Toprol XL [facility] [address]-58 50 mg Orally Once a day December 31, 2015 Active 1 tablet Isosorbide Mononitrate [facility] [address]-29 90 mg Orally Once a day Active 1 tablet Glimepiride [facility] [address]-29 2 MG Orally Once a day (MUST SEE DOCTOR BEFORE NEXT REFILL) May 03, 2016 Active 1 tablet with breakfast or the first main meal of the day Gabapentin [facility] [address]-13 300 MG Orally Three times a day February 28, 2016 Active 3 capsule Nitroglycerin [facility] [address]-58 0.4 MG Sublingual Active Unknown Clopidogrel Bisulfate [facility] [address]-84 75 mg Orally Once a day Active 1 tablet Lisinopril [facility] [address]-79 20 mg Orally Once a day December 31, 2015 Active 1 tablet ProAir HFA [facility] [address]-15 108 (90 Base) MCG/ACT Inhalation every 4 hrs prn February 22, 2016 Active 2 puffs as needed Metformin HCl [facility] 52506552802 1000 mg Orally Twice a day Active 1 tablet with meals Aspir-81 [facility] [address]-34 81 MG Orally Once a day Active 1 tablet Atorvastatin Calcium [facility] [address]-96 40 mg Orally Once a day Active 1 tablet Social History Social History Element Qualifiers Date Reported Flu Vaccine: . 2014May 08, 2016 Ethnicity . Status , Is chinese your primary language? Yes May 08, 2016 children . 5 May 08, 2016 Tobacco Use: . Are you a: never smoker May 08, 2016 Do you have pets? . Status: No May 08, 2016 Marital Status: . May 08, 2016 Caffeine intake? . Status: Yes, What type: Coffee, Soft Drinks May 08, 2016 Do you exercise? . Answer: Yes, Type: walking May 08, 2016 Do you drink alcohol? . Status: Yes, Type: Beer, How often? Rarely May 08, 2016 Family history Qualifier Description Comment Date Reported Maternal Grandmother Comment not available May [...] Other: Comment not available May 08, 2016 Vital Signs Date/Time: May 08, 2016 Weight 232 lbs Height 66 in Cardiac Monitoring Heart Rate 82 /min Blood Pressure Diastolic 78 mm Hg Blood Pressure Systolic 110 mm Hg Summary Purpose eClinicalWorks Submission
--- OUTSIDE RECORDS SUMMARY | 2019-04-17 10:35 | XMS REPORT ---
Author Author Cecy Jarrett Organization eClinicalWorks Address Unknown Phone Unavailable Care Team Providers Care Customer Service Advocate Name Role Phone Cecy Jarrett CP Unavailable Allergies, Adverse Reactions, Alerts Substance Reaction Event Type N.K.D.A. 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 [facility] Nov 02, 2015 Unknown [facility] Nov 08, 2015 Needs referral [facility] Nov 15, 2015 Follow up after er [facility] January 25, 2016 Problems Problem Type Condition ICD-9 Code Onset Dates Condition Status Problem Type 2 diabetes mellitus with hyperglycemia E11.65 Active Problem 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 Problem CAD (coronary artery disease) I25.10 Active Problem Constipation, unspecified constipation type K59.00 Active Assessment Type 2 diabetes mellitus with hyperglycemia E11.65 Active Problem Microalbuminuria R80.9 Active Assessment Essential hypertension I10 Active Assessment Sciatica, right M54.31 Active Problem Sciatica, right M54.31 Active Problem Essential hypertension I10 Active Problem 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 Active Problem Type 2 diabetes mellitus with diabetic peripheral angiopathy without gangrene E11.51 Active Problem Depression, unspecified depression type F32.9 Active Problem History of [place] (myocardial infarction) I25.2 Active Problem 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 Active Assessment Constipation, unspecified constipation type K59.00 Active Assessment CAD (coronary artery disease) I25.10 Active Problem PVD (peripheral vascular disease) I73.9 Active Problem Non morbid obesity due to excess calories E66.09 Active Problem Mixed hyperlipidemia E78.2 Active Problem BMI 36.0-36.9,adult Z68.36 Active Problem 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 Problem S/P coronary artery stent placement Z95.5 Active Medications Medication Code System Code Instructions Start Date End Date Status Dosage Nitroglycerin [facility] [address]-96 0.4 MG Sublingual Active Unknown Glimepiride [facility] [address]-98 2 MG Orally Once a day (with evening meal) Nov 07, 2015 Active 1 tablet with breakfast or the first main meal of the day Isosorbide Dinitrate [facility] [address]-94 30 MG Orally Twice a day Active 1 tablet Novolin R [facility] [address]-39 100 UNIT/ML Injection 65 units in the morning, 45 at night Active 70/30 units Isosorbide Mononitrate [facility] [address]-06 90 mg Orally Once a day Active 1 tablet Metformin HCl [facility] [address]-78 1000 mg Orally Twice a day Active 1 tablet with meals Tramadol HCl [facility] [address]-68 50 mg Orally QD PRN January 25, 2016 February 24, 2016 Active 1 tablet as needed Lisinopril [facility] [address]-48 20 mg Orally Once a day December 31, 2015 Active 1 tablet Gabapentin [facility] [address]-70 600 MG Orally three times a day (tid) as needed (prn) Active 1 tablet Gabapentin [facility] [address]-84 300 MG Orally three times a day (tid) January 25, 2016 Active as directed Aspir-81 [facility] [address]-37 81 MG Orally Once a day Active 1 tablet Novolin 70/30 [facility] [address]-50 (70-30) 100 UNIT/ML Subcutaneous 65 units am and 45 units pm December 23, 2015 Active as directed Lasix [facility] [address]-54 40 mg Orally Once a day December 31, 2015 Active 1 tablet Atorvastatin Calcium [facility] [address]-31 40 mg Orally Once a day Active 1 tablet Clopidogrel Bisulfate [facility] [address]-84 75 mg Orally Once a day Active 1 tablet Toprol XL [facility] [address]-91 50 mg Orally Once a day December 31, 2015 Active 1 tablet Social History Social History Element Qualifiers Date Reported Ethnicity . Status , Is hebrew your primary language? Yes January 25, 2016 Tobacco Use: . Are you a: never smoker January 25, 2016 Do you have pets? . Status: No January 25, 2016 Marital Status: . January 25, 2016 Caffeine intake? . Status: Yes, What type: Coffee, Soft Drinks January 25, 2016 Do you exercise? . Answer: Yes, Type: walking January 25, 2016 Do you drink alcohol? . Status: Yes, Type: Beer, How often? Rarely January 25, 2016 Vital Signs Date/Time: January 25, 2016 Weight 225 lbs Height 66 in Cardiac Monitoring Heart Rate 72 /min Blood Pressure Diastolic 80 mm Hg Blood Pressure Systolic 140 mm Hg Summary Purpose eClinicalWorks Submission
--- OUTSIDE RECORDS SUMMARY | 2019-04-17 10:35 | XMS REPORT ---
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 [facility] Nov 02, 2015 Unknown [facility] Nov 08, 2015 Needs referral [facility] Nov 15, 2015 Follow up after er [facility] January 25, 2016 cough and congestion [facility] February 22, 2016 Problems Problem Type Condition ICD-9 Code Onset Dates Condition Status Problem Type 2 diabetes mellitus with hyperglycemia E11.65 Active Problem 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 Problem CAD (coronary artery disease) I25.10 Active Problem Constipation, unspecified constipation type K59.00 Active Problem Microalbuminuria R80.9 Active Problem Sciatica, right M54.31 Active Problem Essential hypertension I10 Active Problem 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 Active Problem Type 2 diabetes mellitus with diabetic peripheral angiopathy without gangrene E11.51 Active Problem Depression, unspecified depression type F32.9 Active Problem History of [place] (myocardial infarction) I25.2 Active Problem 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 Active Assessment Asthmatic bronchitis J45.909 Active Assessment SOB (shortness of breath) R06.02 Active Problem PVD (peripheral vascular disease) I73.9 Active Problem Non morbid obesity due to excess calories E66.09 Active Problem Mixed hyperlipidemia E78.2 Active Problem BMI 36.0-36.9,adult Z68.36 Active Problem 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 Problem S/P coronary artery stent placement Z95.5 Active Medications Medication Code System Code Instructions Start Date End Date Status Dosage Nitroglycerin [facility] [address]-67 0.4 MG Sublingual Active Unknown Novolin R [facility] [address]-14 100 UNIT/ML Injection 65 units in the morning, 45 at night Active 70/30 units Lisinopril [facility] [address]-69 20 mg Orally Once a day December 31, 2015 Active 1 tablet Lasix [facility] [address]-92 40 mg Orally Once a day December 31, 2015 Active 1 tablet Aspir-81 [facility] [address]-36 81 MG Orally Once a day Active 1 tablet Tramadol HCl [facility] [address]-16 50 mg Orally QD PRN January 25, 2016 February 24, 2016 Active 1 tablet as needed Gabapentin [facility] [address]-23 600 MG Orally three times a day (tid) as needed (prn) Active 1 tablet Metformin HCl [facility] [address]-08 1000 mg Orally Twice a day Active 1 tablet with meals Isosorbide Mononitrate [facility] [address]-45 90 mg Orally Once a day Active 1 tablet Atorvastatin Calcium [facility] [address]-63 40 mg Orally Once a day Active 1 tablet Clopidogrel Bisulfate [facility] [address]-11 75 mg Orally Once a day Active 1 tablet ProAir HFA [facility] [address]-16 108 (90 Base) MCG/ACT Inhalation every 4 hrs prn February 22, 2016 Active 2 puffs as needed Levaquin [facility] [address]-57 500 mg Orally Once a day February 22, 2016 February 29, 2016 Active 1 tablet Novolin 70/30 [facility] [address]-90 (70-30) 100 UNIT/ML Subcutaneous 65 units am and 45 units pm December 23, 2015 Active as directed Toprol XL [facility] [address]-52 50 mg Orally Once a day December 31, 2015 Active 1 tablet Imdur [facility] 42449923970 30 MG Active TAKE 1 TABLET BY MOUTH EVERY DAY Glimepiride [facility] [address]-62 2 MG Orally Once a day (with evening meal) Nov 07, 2015 Active 1 tablet with breakfast or the first main meal of the day Isosorbide Dinitrate [facility] [address]-65 30 MG Orally Twice a day Active 1 tablet Gabapentin [facility] [address]-86 300 MG Orally three times a day (tid) January 25, 2016 Active as directed Patrick Peña [facility] [address]-71 100 mg Orally Three times a day prn February 22, 2016 March 03, 2016 Active 1 capsule as needed Social History Social History Element Qualifiers Date Reported Flu Vaccine: . 2014February 22, 2016 Ethnicity . Status , Is czech your primary language? Yes February 22, 2016 children . 5 February 22, 2016 Tobacco Use: . Are you a: never smoker February 22, 2016 Do you have pets? . Status: No February 22, 2016 Marital Status: . February 22, 2016 Caffeine intake? . Status: Yes, What type: Coffee, Soft Drinks February 22, 2016 Do you exercise? . Answer: Yes, Type: walking February 22, 2016 Do you drink alcohol? . Status: Yes, Type: Beer, How often? Rarely February 22, 2016 Family history Qualifier Description Comment Date Reported Maternal Grandmother Comment not available February [...] Other: Comment not available February 22, 2016 Vital Signs Date/Time: February 22, 2016 Weight 226 lbs Height 66 in Temperature 98.0 F Cardiac Monitoring Heart Rate 88 /min Blood Pressure Diastolic 56 mm Hg Blood Pressure Systolic 108 mm Hg Results CBC Summary Purpose eClinicalWorks Submission
--- OUTSIDE RECORDS SUMMARY | 2019-04-17 10:35 | XMS REPORT ---
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 [facility] Nov 02, 2015 Unknown [facility] Nov 08, 2015 Needs referral [facility] Nov 15, 2015 Unknown [facility] February 27, 2016 Follow up after er [facility] January 25, 2016 cough and congestion [facility] February 22, 2016 Unknown [facility] Jun 06, 2016 Refill [facility] April 04, 2016 med refill [facility] May 08, 2016 Problems Problem Type Condition ICD-9 Code Onset Dates Condition Status Problem Depression, unspecified depression type F32.9 Active Problem Microalbuminuria R80.9 Active Problem Type 2 diabetes mellitus with diabetic peripheral angiopathy without gangrene E11.51 Active Problem Coronary artery disease involving [place] coronary artery of [place] heart with angina pectoris I25.119 Active Problem BMI 37.0-37.9, adult Z68.37 Active Problem 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.29 Active Problem Sciatica, right M54.31 Active Problem Constipation, unspecified constipation type K59.00 Active Problem Tremor R25.1 Active Problem Poor memory R41.3 Active Problem 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 2014May 08, 2016 Ethnicity . Status , Is georgian your primary language? Yes May 08, 2016 [...] Beer, How often? Rarely May 08, 2016 Summary Purpose eClinicalWorks Submission
--- OUTSIDE RECORDS SUMMARY | 2019-04-17 10:35 | XMS REPORT ---
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 [facility] Nov 02, 2015 Unknown [facility] Nov 08, 2015 Needs referral [facility] Nov 15, 2015 Problems Problem Type Condition ICD-9 Code Onset Dates Condition Status Problem BMI 36.0-36.9,adult Z68.36 Active Problem Type 2 diabetes mellitus with hyperglycemia E11.65 Active Problem S/P coronary artery stent placement [...] PVD (peripheral vascular disease) I73.9 Active Problem 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 Active Problem Non morbid obesity due to excess calories E66.09 Active Social History Social History Element Qualifiers Date Reported Ethnicity . Status , Is nigerien your primary language? Yes Nov 07, 2015 Tobacco Use: . Are you a: never smoker Nov 07, 2015 Do you have pets? . Status: No Nov 07, 2015 Marital Status: . Nov 07, 2015 Caffeine intake? . Status: Yes, What type: Coffee, Soft Drinks Nov 07, 2015 Do you exercise? . Answer: Yes, Type: walking Nov 07, 2015 Do you drink alcohol? . Status: Yes, Type: Beer, How often? Rarely Nov 07, 2015 Summary Purpose eClinicalWorks Submission
--- OUTSIDE RECORDS SUMMARY | 2019-04-17 10:35 | XMS REPORT ---
Author Author Meenakshi Chaidez [facility] eClinicalWorks Address Unknown Phone Unavailable Care Team Providers Care Arts [employer] Humanities Council Director Name Role Phone Meenakshi Chaidez CP Unavailable Encounters Encounter Location Date Follow up ~ Had heart attack [facility] December 22, 2015 medication [facility] December 23, 2015 Unknown [facility] December 31, 2015 Unknown [facility] January 25, 2016 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 [facility] Nov 02, 2015 Unknown [facility] Nov 08, 2015 Needs referral [facility] Nov 15, 2015 Unknown [facility] February 27, 2016 Follow up after er [facility] January 25, 2016 cough and congestion [facility] February 22, 2016 Unknown [facility] Jun 06, 2016 Unknown [facility] Aug 06, 2016 Refill [facility] April 04, 2016 med refill [facility] May 08, 2016 Problems Problem Type Condition ICD-9 Code Onset Dates Condition Status Problem Depression, unspecified depression type F32.9 Active Problem Microalbuminuria R80.9 Active Problem Type 2 diabetes mellitus with diabetic peripheral angiopathy without gangrene E11.51 Active Problem Coronary artery disease involving [place] coronary artery of [place] heart with angina pectoris I25.119 Active Problem BMI 37.0-37.9, adult Z68.37 Active Problem 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.29 Active Problem Sciatica, right M54.31 Active Problem Constipation, unspecified constipation type K59.00 Active Problem Tremor R25.1 Active Problem Poor memory R41.3 Active Problem 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 2014May 08, 2016 Ethnicity . Status , Is portuguese your primary language? Yes May 08, 2016 [...]
--- OUTSIDE RECORDS SUMMARY | 2019-04-17 10:35 | XMS REPORT ---
Author Author Cecy Jarrett Organization eClinicalWorks Address Unknown Phone Unavailable Care Team Providers Care Conductor Road Freight Name Role Phone Cecy Jarrett CP Unavailable Allergies, Adverse Reactions, Alerts Substance Reaction Event Type N.K.D.A. 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 [facility] Nov 02, 2015 Unknown [facility] Nov 08, 2015 Needs referral [facility] Nov 15, 2015 Problems Problem Type Condition ICD-9 Code Onset Dates Condition Status Problem S/P coronary artery stent placement Z95.5 Active Problem CAD (coronary artery disease) I25.10 Active Problem Type 2 diabetes mellitus with hyperglycemia E11.65 Active Problem Microalbuminuria R80.9 Active Assessment Essential hypertension I10 Active Problem Type 2 diabetes mellitus with diabetic peripheral angiopathy without gangrene E11.51 Active Assessment Chest pain R07.9 Active Assessment SOB (shortness of breath) R06.02 Active Problem Constipation, unspecified constipation type K59.00 Active Problem 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 Active Problem 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 Problem Depression, unspecified depression type F32.9 Active Problem Essential hypertension I10 Active Assessment Type 2 diabetes mellitus with hyperglycemia E11.65 Active Assessment Heart attack I21.3 Active Assessment CAD (coronary artery disease) I25.10 Active Assessment 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 Active Problem 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 Problem PVD (peripheral vascular disease) I73.9 Active Problem 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 Active Problem Non morbid obesity due to excess calories E66.09 Active Assessment Constipation, unspecified constipation type K59.00 Active Problem Mixed hyperlipidemia E78.2 Active Problem BMI 36.0-36.9,adult Z68.36 Active Medications Medication Code System Code Instructions Start Date End Date Status Dosage Gabapentin [facility] [address]-80 600 MG Orally three times a day (tid) as needed (prn) Active 1 tablet Linzess [facility] [address]-40 145 MCG Orally Once a day December 22, 2015 January 21, 2016 Active 1 capsule Metformin HCl [facility] [address]-19 1000 mg Orally Twice a day Active 1 tablet with meals Atorvastatin Calcium [facility] [address]-26 40 mg Orally Once a day Active 1 tablet Clopidogrel Bisulfate [facility] [address]-99 75 mg Orally Once a day Active 1 tablet Isosorbide Mononitrate [facility] [address]-05 60 MG Orally Once a day Active 1 tablet Glimepiride [facility] [address]-79 2 MG Orally Once a day (with evening meal) Nov 07, 2015 Active 1 tablet with breakfast or the first main meal of the day Metoprolol Tartrate [facility] [address]-60 50 MG Orally Twice a day Active 1 tablet Aspir-81 [facility] [address]-45 81 MG Orally Once a day Active 1 tablet Novolin R [facility] [address]-86 100 UNIT/ML Injection 65 units in the morning, 45 at night Active 70/30 units Lisinopril-Hydrochlorothiazide [facility] [address]-16 20-12.5 MG Orally Once a day Nov 07, 2015 Active 1 tablet Nitroglycerin [facility] [address]-30 0.4 MG Sublingual Active Unknown Social History Social History Element Qualifiers Date Reported Ethnicity . Status , Is solomon islander your primary language? Yes December 22, 2015 Tobacco Use: . Are you a: never smoker December 22, 2015 Do you have pets? . Status: No December 22, 2015 Marital Status: . December 22, 2015 Caffeine intake? . Status: Yes, What type: Coffee, Soft Drinks December 22, 2015 Do you exercise? . Answer: Yes, Type: walking December 22, 2015 Do you drink alcohol? . Status: Yes, Type: Beer, How often? Rarely December 22, 2015 Vital Signs Date/Time: December 22, 2015 Weight 224 lbs Height 66 in Cardiac Monitoring Heart Rate 77 /min Blood Pressure Diastolic 80 mm Hg Blood Pressure Systolic 134 mm Hg Summary Purpose eClinicalWorks Submission
--- OUTSIDE RECORDS SUMMARY | 2019-04-17 10:35 | XMS REPORT ---
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 [facility] Nov 02, 2015 Unknown [facility] Nov 08, 2015 Needs referral [facility] Nov 15, 2015 Problems Problem Type Condition ICD-9 Code Onset Dates Condition Status Problem S/P coronary artery stent placement Z95.5 Active Problem CAD (coronary artery disease) I25.10 Active Problem Type 2 diabetes mellitus with hyperglycemia E11.65 Active Problem Microalbuminuria R80.9 Active Problem Type 2 diabetes mellitus with diabetic peripheral angiopathy without gangrene E11.51 Active Problem Constipation, unspecified constipation type K59.00 Active Problem 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 Active Problem 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 Problem Depression, unspecified depression type F32.9 Active Problem Essential hypertension I10 Active Problem 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 Status , Is yi your primary language? Yes December 22, 2015 [...] Beer, How often? Rarely December 22, 2015 Summary Purpose eClinicalWorks Submission
--- OUTSIDE RECORDS SUMMARY | 2019-04-17 10:35 | XMS REPORT ---
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 Nov 02, 2015 Unknown [facility] Nov 08, 2015 Problems Problem Type Condition ICD-9 Code [...] Instructions Start Date End Date Status Dosage Metformin HCl [facility] [address]-33 1000 mg Orally Twice a day Active 1 tablet with meals Lisinopril-Hydrochlorothiazide [facility] [address]-69 20-12.5 MG Orally Once a day Nov 07, 2015 Active 1 tablet Clopidogrel Bisulfate [facility] [address]-13 75 mg Orally Once a day Active 1 tablet Atorvastatin Calcium [facility] [address]-44 40 mg Orally Once a day Active 1 tablet Glimepiride [facility] [address]-67 2 MG Orally Once a day (with evening meal) Nov 07, 2015 Active 1 tablet with breakfast or the first main meal of the day Social History Social History Element Qualifiers Date Reported Ethnicity . Status , Is amharic your primary language? Yes Nov 07, 2015 [...]
--- OUTSIDE RECORDS SUMMARY | 2019-04-17 10:35 | XMS REPORT ---
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 [facility] Nov 02, 2015 Unknown [facility] Nov 08, 2015 Needs referral [facility] Nov 15, [...] depression type F32.9 Active Problem History of [place] (myocardial infarction) I25.2 Active Problem 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 Active Problem PVD (peripheral vascular disease) I73.9 Active Problem Non morbid obesity due to excess calories E66.09 Active Problem Mixed hyperlipidemia E78.2 Active Problem BMI 36.0-36.9,adult Z68.36 Active Problem 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 Status , Is kazakh your primary language? Yes January 25, 2016 [...] Beer, How often? Rarely January 25, 2016 Summary Purpose eClinicalWorks Submission
--- OUTSIDE RECORDS SUMMARY | 2019-04-17 10:35 | XMS REPORT ---
Author Author Katt Pizarro [facility] eClinicalWorks Address Unknown Phone Unavailable Care Team Providers Care Woodworker Name Role Phone Katt Pizarro CP Unavailable Allergies, Adverse Reactions, Alerts Substance Reaction Event Type N.K.D.A. 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 [facility] Nov 02, 2015 Unknown [facility] Nov 08, 2015 Needs referral [facility] Nov 15, 2015 Unknown [facility] February 27, 2016 Follow up after er [facility] January 25, 2016 cough and congestion [facility] February 22, 2016 refills [facility] Aug 14, 2016 Unknown [facility] Jun 06, 2016 Unknown [facility] Aug 06, 2016 Refill [facility] April 04, 2016 med refill [facility] May 08, 2016 Problems Problem Type Condition ICD-9 Code Onset Dates Condition Status Problem 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 Active Assessment Encounter for immunization Z23 Active Problem Essential hypertension I10 Active Assessment 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 Problem Depression, unspecified depression type F32.9 Active Problem Microalbuminuria R80.9 Active Problem Type 2 diabetes mellitus with diabetic peripheral angiopathy without gangrene E11.51 Active Problem 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 Active Problem BMI 37.0-37.9, adult Z68.37 Active Assessment Type 2 diabetes mellitus with diabetic peripheral angiopathy without gangrene E11.51 Active Assessment Essential hypertension I10 Active Problem 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.29 Active Assessment 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0-36.9,adult Z68.36 Active Medications Medication Code System Code Instructions Start Date End Date Status Dosage Furosemide [facility] [address]-41 40 MG Orally Once a day Active 1 tablet Toprol XL [facility] [address]-66 50 mg Orally Once a day December 31, 2015 Active 1 tablet Gabapentin [facility] [address]-63 300 MG Orally Three times a day February 28, 2016 Active 3 capsule Ranexa [facility] [address]-26 500 MG Orally Twice a day Jun 06, 2016 Active 1 tablet Novolin 70/30 [facility] [address]-82 (70-30) 100 UNIT/ML Subcutaneous 65 units am and 45 units pm December 23, 2015 Active as directed Aspir-81 [facility] [address]-07 81 MG Orally Once a day Active 1 tablet Glimepiride [facility] [address]-93 2 MG Orally Once a day May 03, 2016 Active 1 tablet with breakfast or the first main meal of the day Metformin HCl [facility] 07211771000 1000 mg Orally Twice a day Active 1 tablet with meals Lisinopril [facility] [address]-64 20 MG Orally Once a day December 31, 2015 Active 1 tablet ProAir HFA [facility] [address]-35 108 (90 Base) MCG/ACT Inhalation every 4 hrs prn February 22, 2016 Active 2 puffs as needed Atorvastatin Calcium [facility] [address]-15 40 mg Orally Once a day Active 1 tablet Carbidopa-Levodopa ER [facility] [address]-95 25-100 MG Orally twice a day (bid) Active 1 tablet Isosorbide Mononitrate [facility] [address]-65 120 MG Orally Once a day Active 1 tablet Nitroglycerin [facility] [address]-30 0.4 MG Sublingual Active Unknown Clopidogrel Bisulfate [facility] [address]-45 75 mg Orally Once a day Active 1 tablet Social History Social History Element Qualifiers Date Reported Last Colonoscopy: . has appointment on 08/2016Aug 14, 2016 Ethnicity . Status , Is cuban your primary language? Yes Aug 14, 2016 [...] Beer, How often? Rarely Aug 14, 2016 Family history Qualifier Description Comment Date Reported Maternal Grandmother Comment not available Aug [...] Other: Comment not available Aug 14, 2016 Vital Signs Date/Time: Aug 14, 2016 Weight 232 lbs Height 66 in Cardiac Monitoring Heart Rate 67 /min Blood Pressure Diastolic 62 mm Hg Blood Pressure Systolic 118 mm Hg Immunizations Vaccine Administration Date [place] [address] [place] [address] Aug 14, 2016 Summary Purpose eClinicalWorks Submission
--- OUTSIDE RECORDS SUMMARY | 2019-04-17 10:35 | XMS REPORT ---
Author Author Meenakshi Chaidez [facility] eClinicalWorks Address Unknown Phone Unavailable Care Team Providers Care Crew Mess Attendant Name Role Phone Meenakshi Chaidez Unavailable Encounters Encounter Location Date Follow up ~ Had heart attack [facility] December 22, 2015 medication [facility] December 23, 2015 Unknown [facility] December 31, 2015 Unknown [facility] January 25, 2016 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 [facility] Nov 02, 2015 Unknown [facility] Nov 08, 2015 Needs referral [facility] Nov 15, 2015 Unknown [facility] February 27, 2016 Follow up after er [facility] January 25, 2016 cough and congestion [facility] February 22, 2016 Unknown [facility] November 30, 2016 refills [facility] Aug 14, 2016 Unknown [facility] Oct 29, 2016 Unknown [facility] Jun 06, 2016 Unknown [facility] Aug 06, 2016 Refill [facility] April 04, 2016 med refill [facility] May 08, 2016 Problems Problem Type Condition ICD-9 Code Onset Dates Condition Status Problem Depression, unspecified depression type F32.9 Active Problem Microalbuminuria R80.9 Active Problem Type 2 diabetes mellitus with diabetic peripheral angiopathy without gangrene E11.51 Active Problem Coronary artery disease involving [place] [...] vascular disease) I73.9 Active Problem History of [place] (myocardial infarction) I25.2 Active Problem Mixed hyperlipidemia [...] Date End Date Status Dosage Metformin HCl [facility] 09476083095 1000 MG Orally Twice a day(MUST SEE DOCTOR BEFORE NEXT REFILL) Active 1 tablet with meals Social History Social History Element Qualifiers Date Reported Last Colonoscopy: . has appointment on 08/2016Aug 14, 2016 Ethnicity . Status , Is uzbek your primary language? Yes Aug 14, 2016 [...] Beer, How often? Rarely Aug 14, 2016 Summary Purpose eClinicalWorks Submission
--- OUTSIDE RECORDS SUMMARY | 2019-04-17 10:35 | XMS REPORT ---
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 [facility] Nov 02, 2015 Unknown [facility] Nov 08, 2015 Needs referral [facility] Nov 15, [...] Active Problem Essential hypertension I10 Active Problem History of [place] (myocardial infarction) I25.2 Active Problem 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 Problem PVD (peripheral vascular disease) I73.9 Active Problem 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 Active Problem Non morbid obesity due to excess calories E66.09 Active Problem Mixed hyperlipidemia E78.2 Active Problem BMI 36.0-36.9,adult Z68.36 Active Medications Medication Code System Code Instructions Start Date End Date Status Dosage Lisinopril-Hydrochlorothiazide [facility] [address]-01 20-12.5 MG Orally Once a day Nov 07, 2015 Inactive 1 tablet Metoprolol Tartrate [facility] [address]-30 50 MG Orally Twice a day Inactive 1 tablet Toprol XL [facility] [address]-77 50 mg Orally Once a day December 31, 2015 Active 1 tablet Lisinopril [facility] [address]-20 20 mg Orally Once a day December 31, 2015 Active 1 tablet Lasix [facility] [address]-66 40 mg Orally Once a day December 31, 2015 Active 1 tablet Isosorbide Mononitrate [facility] [address]-25 90 mg Orally Once a day Active 1 tablet Social History Social History Element Qualifiers Date Reported Ethnicity . Status , Is french your primary language? Yes December 22, 2015 [...]
--- OUTSIDE RECORDS SUMMARY | 2019-04-17 10:35 | XMS REPORT ---
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 [facility] Nov 02, 2015 Unknown [facility] Nov 08, 2015 Needs referral [facility] Nov 15, 2015 Unknown [facility] February 27, 2016 Follow up after er [facility] January 25, 2016 cough and congestion [facility] February 22, 2016 refills [facility] Aug 14, 2016 Unknown [facility] Oct 29, 2016 Unknown [facility] Jun 06, 2016 Unknown [facility] Aug 06, 2016 Refill [facility] April 04, 2016 med refill [facility] May 08, 2016 Problems Problem Type Condition ICD-9 Code Onset Dates Condition Status Problem Depression, unspecified depression type F32.9 Active Problem Microalbuminuria R80.9 Active Problem Type 2 diabetes mellitus with diabetic peripheral angiopathy without gangrene E11.51 Active Problem Coronary artery disease involving [place]mi coronary artery of [place]mi heart with angina pectoris I25.119 Active Assessment Essential hypertension I10 Active Problem BMI 37.0-37.9, adult Z68.37 Active Assessment Coronary artery disease involving lummi coronary artery of lummi heart with angina pectoris I25.119 Active Problem 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.29 Active Problem Sciatica, right M54.31 Active Problem Constipation, unspecified constipation type K59.00 Active Problem Tremor R25.1 Active Problem Poor memory R41.3 Active Problem 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 Problem PVD (peripheral vascular disease) I73.9 Active Problem History of [place] (myocardial infarction) I25.2 Active Problem Mixed hyperlipidemia [...] Date End Date Status Dosage Toprol XL [facility] [address]-45 50 MG Orally Once a day December 31, 2015 Active 1 tablet Glimepiride [facility] [address]-80 2 MG Orally Once a day Aug 27, 2016 Active 1 tablet with breakfast or the first main meal of the day Atorvastatin Calcium [facility] [address]-82 40 mg Orally Once a day Active 1 tablet Lisinopril [facility] [address]-67 20 MG Orally Once a day December 31, 2015 Active 1 tablet Social History Social History Element Qualifiers Date Reported Last Colonoscopy: . has appointment on 08/2016Aug 14, 2016 Ethnicity . Status , Is icelandic your primary language? Yes Aug 14, 2016 [...]
--- OUTSIDE RECORDS SUMMARY | 2019-04-17 10:35 | XMS REPORT ---
Author Author Meenakshi Chaidez [facility] eClinicalWorks Address Unknown Phone Unavailable Care Team Providers Care Paper Bag Maker Name Role Phone Meenakshi Chaidez CP Unavailable Allergies, Adverse Reactions, Alerts Substance Reaction Event Type N.K.D.A. 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 Problem Non morbid obesity due to excess calories E66.09 Active Problem PVD (peripheral vascular disease) I73.9 Active Problem 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 Active Problem 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 Assessment BMI 36.0-36.9,adult Z68.36 Active Assessment Non morbid obesity due to excess calories E66.09 Active Problem Essential hypertension I10 Active Assessment PVD (peripheral vascular disease) I73.9 Active Problem S/P coronary artery stent placement Z95.5 Active Problem BMI 36.0-36.9,adult Z68.36 Active Problem CAD (coronary artery disease) I25.10 Active Problem Type 2 diabetes mellitus with hyperglycemia E11.65 Active Assessment CAD (coronary artery disease) I25.10 Active Assessment 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 Assessment S/P coronary artery stent placement Z95.5 Active Assessment Type 2 diabetes mellitus with hyperglycemia E11.65 Active Assessment SOB (shortness of breath) R06.02 Active Assessment Chest pain R07.9 Active Assessment 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 Active Assessment Essential hypertension I10 Active Medications Medication Code System Code Instructions Start Date End Date Status Dosage Atorvastatin Calcium [facility] [address]-36 40 MG Orally Once a day Active 1 tablet Imdur [facility] [address]-70 30 mg Orally Once a day Nov 02, 2015 Active 1 tablet Metoprolol Tartrate [facility] [address]-09 50 MG Orally Twice a day Active 1 tablet Novolin R [facility] [address]-42 100 UNIT/ML Injection Active 70/30 units Metformin HCl [facility] [address]-63 500 mg PO Twice a day Active 1 tablet with meals Clopidogrel Bisulfate [facility] [address]-26 75 MG Orally Once a day Active 1 tablet Ramipril [facility] [address]-48 10 MG Orally Once a day Active 1 tablet Gabapentin [facility] [address]-52 600 MG Orally twice a day (bid) Active 1 tablet Aspir-81 [facility] [address]-23 81 MG Orally Once a day Active 1 tablet Social History Social History Element Qualifiers Date Reported Ethnicity . Status , Is croatian your primary language? Yes Nov 02, 2015 Tobacco Use: . Are you a: never smoker Nov 02, 2015 Do you have pets? . Status: No Nov 02, 2015 Marital Status: . Nov 02, 2015 Caffeine intake? . Status: Yes, What type: Coffee, Soft Drinks Nov 02, 2015 Do you exercise? . Answer: Yes, Type: walking Nov 02, 2015 Do you drink alcohol? . Status: Yes, Type: Beer, How often? Rarely Nov 02, 2015 Vital Signs Date/Time: Nov 02, 2015 Weight 227 lbs Height 66 in Cardiac Monitoring Heart Rate 74 /min Blood Pressure Diastolic 84 mm Hg Blood Pressure Systolic 146 mm Hg Summary Purpose eClinicalWorks Submission
--- OUTSIDE RECORDS SUMMARY | 2019-04-17 10:35 | XMS REPORT ---
Author Author Meenakshi Chaidez [facility] eClinicalWorks Address Unknown Phone Unavailable Care Team Providers Care Crew Truck Driver Name Role Phone Meenakshi Chaidez Unavailable Encounters Encounter Location Date Follow up ~ Had heart attack [facility] December 22, [address] [facility] December 23, [address] [facility] December 31, [address] 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 Nov 02, [address] [facility] Nov 08, [address] [facility] Nov 15, [address] [facility] February 27, 2016 Follow up after er [facility] January 25, [address] [facility] February 22, 2016 [...] Date End Date Status Dosage Gabapentin [facility] [address]-24 300 MG Orally Three times a day February 28, 2016 Active 3 capsules Gabapentin [facility] [address]-37 600 MG Orally three times a day (tid) as needed (prn) Inactive 1 tablet Social History Social History Element Qualifiers Date Reported Flu Vaccine: . 2014February 22, 2016 Ethnicity . Status , Is welsh your primary language? Yes February 22, 2016 [...] Beer, How often? Rarely February 22, 2016 Summary Purpose eClinicalWorks Submission
--- OUTSIDE RECORDS SUMMARY | 2019-04-17 10:35 | XMS REPORT ---
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 [facility] Nov 02, 2015 Refill [facility] April 04, 2016 Unknown [facility] Nov 08, 2015 Needs referral [facility] Nov 15, 2015 Unknown [facility] February 27, 2016 Follow up after er [facility] January 25, 2016 cough and congestion [facility] February 22, [...] depression type F32.9 Active Problem History of [place] (myocardial infarction) I25.2 Active Problem Atherosclerotic cardiovascular [...] Dosage Glimepiride [facility] [address]-31 2 MG Orally Once a day (MUST SEE DOCTOR BEFORE NEXT REFILL) Active 1 tablet Social History Social History Element Qualifiers Date Reported Flu Vaccine: . 2014February 22, 2016 Ethnicity . Status , Is brazilian your primary language? Yes February 22, 2016 [...]
--- OUTSIDE RECORDS SUMMARY | 2019-04-17 10:36 | XMS REPORT ---
Author Author Katt Pizarro [facility] eClinicalWorks Address Unknown Phone Unavailable Care Team Providers Care Loom Changeover Operator Name Role Phone Katt Pizarro Unavailable Allergies, Adverse Reactions, Alerts Substance Reaction Event Type N.K.D.A. 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 Active Assessment Mixed hyperlipidemia E78.2 Active Problem Essential hypertension I10 Active Assessment BMI 36.0-36.9,adult Z68.36 Active Problem Depression, unspecified depression type F32.9 Active Problem Microalbuminuria R80.9 Active Problem Type 2 diabetes mellitus with diabetic peripheral angiopathy without gangrene E11.51 Active Problem 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 Active Problem BMI 37.0-37.9, adult Z68.37 Active Assessment Routine physical examination Z00.00 Active Assessment Poor memory R41.3 Active Problem Type 2 diabetes mellitus with [...] Instructions Start Date End Date Status Dosage Ranexa [facility] [address]-85 500 MG Orally Twice a day Active 1 tablet Metformin HCl [facility] 73877464434 1000 MG Orally Twice a day Active 1 tablet with meals Metoprolol Succinate ER [facility] [address]-66 25 MG Orally Once a day Active 1 tablet Furosemide [facility] [address]-47 40 MG Orally Once a day Active 1 tablet Linzess [facility] 97417064613 145 Active TAKE 1 CAPSULE BY MOUTH EVERY DAY Aspir-81 [facility] [address]-13 81 MG Orally Once a day Active 1 tablet Carbidopa-Levodopa ER [facility] [address]-54 25-100 MG Orally twice a day (bid) Active 1 tablet Lisinopril [facility] [address]-36 20 MG Orally Once a day December 31, 2015 Active 1 tablet Clopidogrel Bisulfate [facility] [address]-10 75 mg Orally Once a day Active 1 tablet Nitroglycerin [facility] [address]-92 0.4 MG Sublingual once a day prn Active 1 tablet Glimepiride [facility] [address]-69 2 MG Orally Once a day Aug 27, 2016 Active 1 tablet with breakfast or the first main meal of the day Atorvastatin Calcium [facility] [address]-12 40 mg Orally Once a day Active 1 tablet Isosorbide Mononitrate [facility] [address]-13 120 MG Orally Once a day Active 1 tablet Toprol XL [facility] [address]-48 50 MG Orally Once a day November 27, 2016 Active 1 tablet Gabapentin [facility] [address]-06 300 MG Orally Three times a day February 28, 2016 Active 3 capsule Novolin 70/30 [facility] [address]-69 (70-30) 100 UNIT/ML Subcutaneous 65 units am and 45 units pm December 23, 2015 Active as directed ProAir HFA [facility] [address]-96 108 (90 Base) MCG/ACT Inhalation every 4 hrs prn February 22, 2016 Active 2 puffs as needed Vital Signs Date/Time: December 11, 2016 BMI 36.96 Index Weight 229 lbs Height 66 in Cardiac Monitoring Heart Rate 67 /min Blood Pressure Diastolic 77 mm Hg Blood Pressure Systolic 110 mm Hg Results No Known Results Summary Purpose eClinicalWorks Submission
--- OUTSIDE RECORDS SUMMARY | 2019-04-17 10:36 | XMS REPORT | Summary of Care ---
Author Author [facility] Organization [facility] Address Unknown Phone Unavailable Encounter HQ Kimberlee(FIN) [id number] Date(s): 12/07/17 - 12/07/17 [facility] [address] [place] [address]- [phone] Encounter Diagnosis Occlusion and stenosis of bilateral carotid arteries (Final) - 12/12/17 Discharge Disposition: Home or Self Care Attending Physician: Sha Galeano MD Referring Physician: Sha Galeano MD Vital Signs No data available for this section Problem List Condition Effective Dates Status Health Status Informant [D]Chest Active pain(Confirmed) Arthritis(Confirmed) Active CAD - Coronary Active artery disease(Confirmed) Cerebral Active palsy(Confirmed) Chest Resolved pain(Confirmed) Chronic Active pain(Confirmed) Diabetes Active mellitus(Confirmed) [place] - Hard of Active hearing(Confirmed) Hypertension(Confirm Active ed) Incontinence of Active urine(Confirmed) Neuropathy(Confirmed Active ) Secondary, 12/01/08 Active uncontrolled diabetes mellitus without mention of complication(Confirm ed) Swelling of ankle Active joint(Confirmed)1 1Occasional swelling around both ankles Allergies, Adverse Reactions, Alerts Substance Reaction Severity Status NKDA Active Medications Visipaque 100 mL, 0 ml/hr, Route: IV, Drug Form: SOLN, ONCALL, Start date: 12/07/17 12:00: 00 CDT, Duration: 1 doses or times Notes: (Same as: Visipaque).WASTE: F/P - Black; E - Municipal Trash Bin Start Date: 12/07/17 Status: Ordered Results CHEM PANEL Most recent to 1 oldest [Reference Range]: eGFR 60 mL/min/1.73m2 1 *NA* (12/07/17 10:47 AM) POC Creatinine 1.2 mg/dL [0.5-1.4 mg/dL] (12/07/17 10:47 AM) 1Result Comment: The eGFR is calculated using the [...] from the National Kidney Disease Education Program ( NKDEP) which additionally recommends that when the eGFR is used in patients with extremes of body mass index for purposes of drug dosing, the eGFR should be mul tiplied by the estimated BMI. Immunizations No data available for this section Procedures Procedure Date Related Diagnosis Body Site Status Cystectomy1 09/23/67 Completed Appendectomy 09/23/63 Completed CABG x 3 - Coronary artery bypass grafts x 3 Completed Stent placement2 Completed 1spine 2total x7 Social History Social History Type Response Substance Abuse Use: None. Sexual Sexually active: No. Sexually active at age 16 Years. Partner with STD? No. Uses condoms: No. History of sexual abuse: No. Sex Mutually Satisfying: No. Change in Libido: Yes. Self Breast Exam Yes. Testicular Self Exam No. Menstrual Period Started: No. Exercise Exercise duration: 90. Exercise frequency: 5-6 times/week. Self assessment: Fair condition. Exercise type: Walking. 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 Activity level: Occasional physical work. Operates hazardous equipment: No. Alcohol Past, Type Beer, Wine, Liquor.1 Smoking Status Former smoker; Ready to change: No; Concerns about tobacco use in household: No; Exposure to Tobacco Smoke None; Cigarette Smoking Last 365 Days No; Reg Smoking Cessation Counseling Yes; Other Tobacco Frequency stopped 10yrs ago; entered on: 03/14/17 16 pack every other day Assessment and Plan No data available for this section
--- OUTSIDE RECORDS SUMMARY | 2019-04-17 10:36 | XMS REPORT | Summary of Care ---
Author Author [facility] Organization [facility] Address Unknown Phone Unavailable Encounter HQ Kimberlee(MIKE) [id number] Date(s): 02/04/17 - 02/05/17 [facility] [address] [place] [address]- [phone] Discharge Disposition: Home or Self Care Attending Physician: Meenakshi Chaidez MD Admitting Physician: Meenakshi Chaidez MD Vital Signs 1 2 3 Most recent to oldest [Reference Range]: 167.64 cm (02/04/17 4:34 AM) 167.64 cm (02/04/17 12:23 AM) Height 98.8 DegF (02/05/17 11:32 AM) 98.0 DegF (02/05/17 7:20 AM) 97.5 DegF (02/05/17 3:02 AM) Temperature Oral [96.4-99.1 DegF] 133/55 mmHg (02/05/17 11:32 AM) 151/54 mmHg *HI* (02/05/17 7:20 AM) 148/66 mmHg *HI* (02/05/17 3:02 AM) Blood Pressure [90-140/60-90 mmHg] 16 BRMIN (02/05/17 11:32 AM) 16 BRMIN (02/05/17 8:03 AM) 16 BRMIN (02/05/17 7:20 AM) Respiratory Rate [14-20 BRMIN] 69 bpm (02/05/17 11:32 AM) 67 bpm (02/05/17 7:20 AM) 68 bpm (02/05/17 3:02 AM) Peripheral Pulse Rate [60-100 bpm] 102.909 kg (02/04/17 4:34 AM) 100 kg (02/04/17 12:23 AM) Weight 36.62 m2 (02/04/17 4:34 AM) 35.58 m2 (02/04/17 12:23 AM) Body Mass Index Problem List Condition Effective Dates Status Health Status Informant [D]Chest Active pain(Confirmed) Arthritis(Confirmed) Active CAD - Coronary Active artery disease(Confirmed) Cerebral Active palsy(Confirmed) Chest Resolved pain(Confirmed) Chronic Active pain(Confirmed) Diabetes Active mellitus(Confirmed) [place] - Hard of Active hearing(Confirmed) Hypertension(Confirm Active ed) Incontinence of Active urine(Confirmed) Neuropathy(Confirmed Active ) Secondary, 12/01/08 Active uncontrolled diabetes mellitus without mention of complication(Confirm ed) Swelling of ankle Active joint(Confirmed)1 1Occasional swelling around both ankles Allergies, Adverse Reactions, Alerts Substance Reaction Severity Status NKDA Active Medications aspirin 81 mg tablet, enteric coated 81 mg, 1 tab, Route: PO, Drug form: ECTAB, Daily, Dosing Weight 102.909, kg, Sta rt date: 02/05/17 9:00:00 CDT, Duration: 30 day, Stop date: 03/06/17 9:00:00 CDT Notes: Do not crush or chew.(Same As: Ecotrin) Start Date: 02/05/17 Stop Date: 02/05/17 Status: Discontinued aspirin 81 mg tablet, enteric coated 81 mg, 1 tab, Route: PO, Drug form: ECTAB, Daily, Dosing Weight 100, kg, Start d ate: 02/04/17 9:00:00 CDT, Duration: 30 day, Stop date: 03/05/17 9:00:00 CDT Notes: Do not crush or chew.(Same As: Ecotrin) Start Date: 02/04/17 Stop Date: 02/04/17 Status: Discontinued atorvastatin 40 mg, 1 tab, Route: PO, Drug form: TAB, Bedtime, Dosing Weight 102.909, kg, Sta rt date: 02/04/17 21:00:00 CDT, Duration: 30 day, Stop date: 03/05/17 21:00:00 C DT Notes: (Same as: Lipitor) Start Date: 02/04/17 Stop Date: 02/05/17 Status: Discontinued carbidopa-levodopa 10 mg-100 mg oral tablet 1 tab, PO, BID, 0 Refill(s) Start Date: 02/04/17 Status: Ordered carbidopa-levodopa 10 mg-100 mg oral tablet 1 tab, Route: PO, Drug Form: TAB, Dosing Weight 102.909, kg, BID, Start date: 17:00:00 CDT, Duration: 30 day, Stop date: 03/06/17 9:00:00 CDT Notes: Take with milk or food. (Same As: Sinemet) Start Date: 02/04/17 Stop Date: 02/05/17 Status: Discontinued clopidogrel 75 mg, 1 tab, Route: PO, Drug form: TAB, Daily, Dosing Weight 102.909, kg, Start date: 02/05/17 9:00:00 CDT, Duration: 30 day, Stop date: 03/06/17 9:00:00 CDT Notes: (Same As: Plavix) Start Date: 02/05/17 Stop Date: 02/05/17 Status: Discontinued Dextrose 50% Syringe 25 gm, 50 mL, Route: IVP, Drug Form: INJ, Dosing Weight 102.909, kg, PRN, PRN Bl ood Glucose Results, Start date: 02/04/17 13:24:00 CDT, Duration: 30 day, Stop d ate: 03/06/17 13:23:00 CDT Start Date: 02/04/17 Stop Date: 02/05/17 Status: Discontinued Dextrose 50% Syringe 12.5 gm, 25 mL, Route: IVP, Drug Form: INJ, Dosing Weight 102.909, kg, PRN, PRN Blood Glucose Results, Start date: 02/04/17 13:24:00 CDT, Duration: 30 day, Stop date: 03/06/17 13:23:00 CDT Start Date: 02/04/17 Stop Date: 02/05/17 Status: Discontinued furosemide 40 mg oral tablet 40 mg, 1 tab, Route: PO, Drug form: TAB, Bedtime, Dosing Weight 102.909, kg, Sta rt date: 02/04/17 21:00:00 CDT, Duration: 30 day, Stop date: 03/05/17 21:00:00 C DT Notes: (Same as: Lasix) May cause GI upset. Give with food or milk. Start Date: 02/04/17 Stop Date: 02/04/17 Status: Canceled gabapentin 900 mg, PO, TID, 0 Refill(s) Start Date: 02/04/17 Stop Date: 02/05/17 Status: Discontinued gabapentin 300 mg, 1 cap, Route: PO, Drug form: CAP, TID, Dosing Weight 102.909, kg, Start date: 02/04/17 17:00:00 CDT, Duration: 30 day, Stop date: 03/06/17 13:00:00 CDT Notes: (Same as: Neurontin) Start Date: 02/04/17 Stop Date: 02/05/17 Status: Discontinued glimepiride 2 mg, Route: PO, Drug form: TAB, Breakfast, Dosing Weight 102.909, kg, Start merlene e: 02/05/17 8:00:00 CDT, Duration: 30 day, Stop date: 03/06/17 8:00:00 CDT Start Date: 02/05/17 Stop Date: 02/04/17 Status: Deleted glucagon 1 mg, Route: IM, Drug form: PDR/INJ, PRN, Dosing Weight 102.909, kg, PRN Blood G lucose Results, Start date: 02/04/17 13:24:00 CDT, Duration: 30 day, Stop date: 03/06/17 13:23:00 CDT Start Date: 02/04/17 Stop Date: 02/05/17 Status: Discontinued Glucotrol 10 mg, 1 tab, Route: PO, Drug form: TAB, Before Breakfast, Start date: 02/05/17 7:30:00 CDT, Duration: 30 day, Stop date: 03/06/17 7:30:00 CDT Notes: (Same as: Glucotrol) 30 min before meals. Start Date: 02/05/17 Stop Date: 02/05/17 Status: Discontinued Humulin 70/30 Route: SUB-Q, Drug form: SUSP, Bedtime, Dosing Weight 102.909, kg, Start date: 0 02/04/17 21:00:00 CDT, Duration: 30 day, Stop date: 03/05/17 21:00:00 CDT Start Date: 02/04/17 Stop Date: 02/04/17 Status: Deleted hydrALAZINE 10 mg, 0.5 mL, Route: IVP, Drug form: INJ, Q6H, Dosing Weight 102.909, kg, PRN H ypertension, Hydralazine 10mg IV q6h prn SBP>160mmHg., Start date: 02/04/17 16:24:00 CDT, Duration: 30 day, Stop date: 03/06/17 16:23:00 CDT Notes: (Same as: Apresoline)Push over 5 minutes Start Date: 02/04/17 Stop Date: 02/05/17 Status: Discontinued insulin aspart 1 unit, 0.01 mL, Route: SUB-Q, Drug form: SOLN, Bedtime, Dosing Weight 102.909, kg, PRN Blood Glucose Results, Start date: 02/04/17 13:24:00 CDT, Duration: 30 d ay, Stop date: 03/06/17 13:23:00 CDT Notes: Roll in palms of hands gently; Do not shake vigorously. (Same as: NovoMIKAEL Zaidi)"single patient use only"WASTE: F/P - Black; E - Municipal Trash Bin Stable f or 28 days at room temperature.Expires in days from Date Start Date: 02/04/17 Stop Date: 02/05/17 Status: Discontinued insulin aspart 2 unit, 0.02 mL, Route: SUB-Q, Drug form: SOLN, Bedtime, Dosing Weight 102.909, kg, PRN Blood Glucose Results, Start date: 02/04/17 13:24:00 CDT, Duration: 30 d ay, Stop date: 03/06/17 13:23:00 CDT Notes: Roll in palms of hands gently; Do not shake vigorously. (Same as: NovoMIKAEL G)"single patient use only"WASTE: F/P - Black; E - Municipal Trash Bin Stable f or 28 days at room temperature.Expires in days from Date Start Date: 02/04/17 Stop Date: 02/05/17 Status: Discontinued insulin aspart 4 unit, 0.04 mL, Route: SUB-Q, Drug form: SOLN, Bedtime, Dosing Weight 102.909, kg, PRN Blood Glucose Results, Start date: 02/04/17 13:24:00 CDT, Duration: 30 d ay, Stop date: 03/06/17 13:23:00 CDT Notes: Roll in palms of hands gently; Do not shake vigorously. (Same as: Jolanta Zaidi)"single patient use only"WASTE: F/P - Black; E - Municipal Trash Bin Stable f or 28 days at room temperature.Expires in days from Date Start Date: 02/04/17 Stop Date: 02/05/17 Status: Discontinued insulin aspart 3 unit, 0.03 mL, Route: SUB-Q, Drug form: SOLN, Bedtime, Dosing Weight 102.909, kg, PRN Blood Glucose Results, Start date: 02/04/17 13:24:00 CDT, Duration: 30 d ay, Stop date: 03/06/17 13:23:00 CDT Notes: Roll in palms of hands gently; Do not shake vigorously. (Same as: Jolanta Zaidi)"single patient use only"WASTE: F/P - Black; E - Municipal Trash Bin Stable f or 28 days at room temperature.Expires in days from Date Start Date: 02/04/17 Stop Date: 02/05/17 Status: Discontinued insulin aspart 5 unit, 0.05 mL, Route: SUB-Q, Drug form: SOLN, TID-Before Meals, Dosing Weight 102.909, kg, PRN Blood Glucose Results, Start date: 02/04/17 13:24:00 CDT, Durat ion: 30 day, Stop date: 03/06/17 13:23:00 CDT Notes: Roll in palms of hands gently; Do not shake vigorously. (Same as: Jolanta Zaidi)"single patient use only"WASTE: F/P - Black; E - Municipal Trash Bin Stable f or 28 days at room temperature.Expires in days from Date Start Date: 02/04/17 Stop Date: 02/05/17 Status: Discontinued insulin aspart 4 unit, 0.04 mL, Route: SUB-Q, Drug form: SOLN, TID-Before Meals, Dosing Weight 102.909, kg, PRN Blood Glucose Results, Start date: 02/04/17 13:24:00 CDT, Durat ion: 30 day, Stop date: 03/06/17 13:23:00 CDT Notes: Roll in palms of hands gently; Do not shake vigorously. (Same as: NovoMIKAEL Zaidi)"single patient use only"WASTE: F/P - Black; E - Municipal Trash Bin Stable f or 28 days at room temperature.Expires in days from Date Start Date: 02/04/17 Stop Date: 02/05/17 Status: Discontinued insulin aspart 2 unit, 0.02 mL, Route: SUB-Q, Drug form: SOLN, TID-Before Meals, Dosing Weight 102.909, kg, PRN Blood Glucose Results, Start date: 02/04/17 13:24:00 CDT, Durat ion: 30 day, Stop date: 03/06/17 13:23:00 CDT Notes: Roll in palms of hands gently; Do not shake vigorously. (Same as: NovoMIKAEL G)"single patient use only"WASTE: F/P - Black; E - Municipal Trash Bin Stable f or 28 days at room temperature.Expires in days from Date Start Date: 02/04/17 Stop Date: 02/05/17 Status: Discontinued insulin aspart 3 unit, 0.03 mL, Route: SUB-Q, Drug form: SOLN, TID-Before Meals, Dosing Weight 102.909, kg, PRN Blood Glucose Results, Start date: 02/04/17 13:24:00 CDT, Durat ion: 30 day, Stop date: 03/06/17 13:23:00 CDT Notes: Roll in palms of hands gently; Do not shake vigorously. (Same as: NovoLO G)"single patient use only"WASTE: F/P - Black; E - Municipal Trash Bin Stable f or 28 days at room temperature.Expires in days from Date Start Date: 02/04/17 Stop Date: 02/05/17 Status: Discontinued insulin aspart 1 unit, 0.01 mL, Route: SUB-Q, Drug form: SOLN, TID-Before Meals, Dosing Weight 102.909, kg, PRN Blood Glucose Results, Start date: 02/04/17 13:24:00 CDT, Durat ion: 30 day, Stop date: 03/06/17 13:23:00 CDT Notes: Roll in palms of hands gently; Do not shake vigorously. (Same as: NovoLO G)"single patient use only"WASTE: F/P - Black; E - Municipal Trash Bin Stable f or 28 days at room temperature.Expires in days from Date Start Date: 02/04/17 Stop Date: 02/05/17 Status: Discontinued insulin aspart-insulin aspart protamine 65 unit, 0.65 mL, Route: SUB-Q, Drug form: INJ, QAM, Start date: 02/05/17 9:00:0 0 CDT, Duration: 30 day, Stop date: 03/06/17 9:00:00 CDT Notes: Roll in palms of hands gently; Do not shake vigorously. (Same as: NovoLO G Mix)"single patient use only"WASTE: F/P - Black; E - Municipal Trash Bin Stab le for 14 days at room temperatureExpires in days from Date Start Date: 02/05/17 Stop Date: 02/05/17 Status: Discontinued insulin aspart-insulin aspart protamine 45 unit, 0.45 mL, Route: SUB-Q, Drug form: INJ, Bedtime, Start date: 02/04/17 21 :00:00 CDT, Duration: 30 day, Stop date: 03/05/17 21:00:00 CDT Notes: Roll in palms of hands gently; Do not shake vigorously. (Same as: NovoLO G Mix)"single patient use only"WASTE: F/P - Black; E - Municipal Trash Bin Stab le for 14 days at room temperatureExpires in days from Date Start Date: 02/04/17 Stop Date: 02/05/17 Status: Discontinued insulin isophane-insulin regular human recombinant 70 units-30 units/mL subcutan eous injection 45 unit, SUB-Q, Bedtime, 0 Refill(s) Start Date: 02/04/17 Status: Ordered isosorbide mononitrate 120 mg, 4 tab, Route: PO, Drug form: ERTAB, QAM, Dosing Weight 102.909, kg, Star t date: 02/05/17 9:00:00 CDT, Duration: 30 day, Stop date: 03/06/17 9:00:00 CDT Notes: (Same as:Imdur)"Do Not Crush" Take on empty stomach/ full glass of water . Do not crush Start Date: 02/05/17 Stop Date: 02/05/17 Status: Discontinued isosorbide mononitrate 120 mg oral tablet, extended release 120 mg=1 tab, PO, QAM, # 30 tab, 0 Refill(s) Start Date: 02/04/17 Status: Ordered lisinopril 20 mg, 1 tab, Route: PO, Drug form: TAB, Daily, Dosing Weight 102.909, kg, Start date: 02/05/17 9:00:00 CDT, Duration: 30 day, Stop date: 03/06/17 9:00:00 CDT Notes: (Same as: Prinivil, Zestril) Start Date: 02/05/17 Stop Date: 02/04/17 Status: Canceled metoprolol extended release 25 mg, PO, Daily, 0 Refill(s) Start Date: 02/04/17 Stop Date: 02/05/17 Status: Discontinued nitroglycerin 2% ointment 1 inch, Route: TOP, Dosing Weight 100, kg, ONCE, STAT, Start date: 02/04/17 0:58 :00 CDT, Stop date: 02/04/17 0:58:00 CDT Start Date: 02/04/17 Stop Date: 02/04/17 Status: Completed nitroglycerin SL Tab 0.4 mg, 1 tab, Route: SL, Drug form: TAB, Q5Min, Dosing Weight 100, kg, PRN Ches t Pain, Start date: 02/04/17 3:38:00 CDT, Duration: 3 doses or times, Stop date: Limited # of times Notes: (Same as:Nitroquick, Nitrostat)"Do Not Crush" Sublingual tablet Start Date: 02/04/17 Stop Date: 02/05/17 Status: Discontinued Nitrostat 0.4 mg sublingual tablet 0.4 mg, 1 tab, Route: SL, Drug form: TAB, Q5Min, Dosing Weight 102.909, kg, PRN Chest Pain, Start date: 02/04/17 13:22:00 CDT, Duration: 30 day, Stop date: 02/21 01/07 13:21:00 CDT Start Date: 02/04/17 Stop Date: 02/04/17 Status: Deleted NovoLIN 70/30 65 unit, Route: SUB-Q, QAM, Dosing Weight 102.909, kg, Start date: 02/05/17 9:00 :00 CDT, Duration: 30 day, Stop date: 03/06/17 9:00:00 CDT Start Date: 02/05/17 Stop Date: 02/04/17 Status: Deleted ondansetron 4 mg, 1 tab, Route: PO, Drug form: TABDIS, Q8H, Dosing Weight 100, kg, PRN Nause a & Vomiting, Start date: 02/04/17 3:38:00 CDT, Duration: 30 day, Stop date: 03/06/17 3:37:00 CDT Notes: (Same as: Rosangela ODT) Start Date: 02/04/17 Stop Date: 02/05/17 Status: Discontinued Ranexa 500 mg oral tablet, extended release 500 mg, 1 tab, Route: PO, Drug form: TAB, BID, Dosing Weight 102.909, kg, Start date: 02/04/17 17:00:00 CDT, Duration: 30 day, Stop date: 03/06/17 9:00:00 CDT Notes: Same as Ranexa"Do Not Crush" Start Date: 02/04/17 Stop Date: 02/05/17 Status: Discontinued Ranexa 500 mg oral tablet, extended release 500 mg=1 tab, PO, BID, # 60 tab, 0 Refill(s) Start Date: 02/04/17 Status: Ordered Saline Flush 0.9% 10 mL, Route: IVP, Drug Form: INJ, Dosing Weight 100, kg, PRN, PRN Line Flush, S tart date: 02/04/17 0:58:00 CDT, Duration: 30 day, Stop date: 03/06/17 0:57:00 C DT Notes: (Same as: BD Posiflush) Start Date: 02/04/17 Stop Date: 02/05/17 Status: Discontinued Saline Flush 0.9% 10 ml, Route: IVP, Drug Form: INJ, Dosing Weight 100, kg, PRN, PRN Line Flush, S tart date: 02/04/17 3:38:00 CDT, Duration: 30 day, Stop date: 03/06/17 3:37:00 C DT Notes: (Same as: BD Posiflush) Start Date: 02/04/17 Stop Date: 02/05/17 Status: Discontinued Saline Flush 0.9% 10 ml, Route: IVP, Drug Form: INJ, Dosing Weight 100, kg, Q12H, Start date: 01/21 02/06 9:00:00 CDT, Duration: 30 day, Stop date: 03/05/17 21:00:00 CDT Notes: (Same as: BD Posiflush) Start Date: 02/04/17 Stop Date: 02/05/17 Status: Discontinued Saline Flush 0.9% 10 ml, Route: IVP, Drug Form: INJ, Dosing Weight 100, kg, PRN, PRN Line Flush, S tart date: 02/04/17 3:38:00 CDT, Duration: 30 day, Stop date: 03/06/17 3:37:00 C DT Notes: (Same as: BD Posiflush) Start Date: 02/04/17 Stop Date: 02/05/17 Status: Discontinued sodium chloride 0.9% 1000 ml INJ 1,000 mL 1,000 mL, Rate: 1,000 ml/hr, Infuse over: 1 hr, Route: IV, Dosing Weight 100 kg, Total Volume: 1,000, Priority: STAT, Start date: 02/04/17 2:13:00 CDT, Duration : 1 doses or times, Stop date: 02/04/17 3:12:00 CDT Start Date: 02/04/17 Stop Date: 02/04/17 Status: Completed sodium chloride 0.9% 1000 ml INJ 1,000 mL 1,000 mL, Rate: 75 ml/hr, Infuse over: 13.3 hr, Route: IV, Dosing Weight 100 kg, Total Volume: 1,000, Start date: 02/04/17 3:38:00 CDT, Duration: 30 day, Stop d ate: 03/06/17 3:37:00 CDT Start Date: 02/04/17 Stop Date: 02/05/17 Status: Discontinued Toprol-XL 50 mg oral tablet, extended release 50 mg, 1 tab, Route: PO, Drug form: ERTAB, Daily, Start date: 02/05/17 9:00:00 C DT, Duration: 30 day, Stop date: 03/06/17 9:00:00 CDT Notes: (Same as: Toprol XL) May split tab, but do not crush. Start Date: 02/05/17 Stop Date: 02/05/17 Status: Discontinued Results ELECTROLYTES 1 2 3 Most recent to oldest [Reference Range]: 144 mEq/L (02/05/17 2:47 AM) 144 mEq/L (02/04/17 1:07 AM) Sodium Lvl [135-145 mEq/L] 4.4 mEq/L (02/05/17 2:47 AM) 4.7 mEq/L (02/04/17 1:07 AM) Potassium Lvl [3.5-5.1 mEq/L] 111 mEq/L *HI* (02/05/17 2:47 AM) 108 mEq/L (02/04/17 1:07 AM) Chloride Lvl [95-109 mEq/L] 28 mEq/L (02/05/17 2:47 AM) 29 mEq/L (02/04/17 1:07 AM) CO2 [24-32 mEq/L] 9.4 mEq/L *LOW* (02/05/17 2:47 AM) 11.7 mEq/L (02/04/17 1:07 AM) AGAP [10.0-20.0 mEq/L] CHEM PANEL 1 2 3 Most recent to oldest [Reference Range]: 0.93 mg/dL (02/05/17 2:47 AM) 1.60 mg/dL *HI* (02/04/17 1:07 AM) Creatinine Lvl [0.50-1.40 mg/dL] 83 mL/min/1.73m2 1 *NA* (02/05/17 2:47 AM) 43 mL/min/1.73m2 2 *NA* (02/04/17 1:07 AM) eGFR 20 mg/dL (02/05/17 2:47 AM) 42 mg/dL *HI* (02/04/17 1:07 AM) BUN [7-22 mg/dL] 26 *HI* (02/04/17 1:07 AM) B/C Ratio [6-25] 67 mg/dL *LOW* (02/05/17 2:47 AM) 184 mg/dL *HI* (02/04/17 1:07 AM) Glucose Lvl [70-99 mg/dL] 6.9 g/dL (02/04/17 1:07 AM) Total Protein [6.4-8.4 g/dL] 3.5 g/dL (02/04/17 1:07 AM) Albumin Lvl [3.5-5.0 g/dL] 3.4 g/dL (02/04/17 1:07 AM) Globulin [2.7-4.2 g/dL] 1.0 (02/04/17 1:07 AM) A/G Ratio [0.7-1.6] 8.5 mg/dL (02/05/17 2:47 AM) 9.0 mg/dL (02/04/17 1:07 AM) Calcium Lvl [8.5-10.5 mg/dL] 16 unit/L (02/04/17 1:07 AM) ALT [0-65 unit/L] 12 unit/L (02/04/17 1:07 AM) AST [0-37 unit/L] 100 unit/L (02/04/17 1:07 AM) Alk Phos [39-136 unit/L] 0.2 mg/dL (02/04/17 1:07 AM) Bili Total [0.2-1.3 mg/dL] 1Result Comment: The eGFR is calculated using [...] be mul tiplied by the estimated BMI. 2Result Comment: The eGFR is calculated using the [...] be mul tiplied by the estimated BMI. CARDIAC ENZYMES 1 2 3 Most recent to oldest [Reference Range]: 224 unit/L *HI* (02/04/17 1:07 AM) Total CK [12-191 unit/L] 1.8 ng/mL (02/04/17 1:07 AM) CK MB [0.5-3.6 ng/mL] 0.8 (02/04/17 1:07 AM) CK MB Index [0.0-2.5] <0.02 ng/mL (02/04/17 9:49 AM) <0.02 ng/mL (02/04/17 5:20 AM) <0.02 ng/mL (02/04/17 1:07 AM) Troponin-I [0.00-0.40 ng/mL] 51 pg/mL (02/04/17 1:07 AM) BNP [<=100 pg/mL] URINE AND STOOL 1 2 3 Most recent to oldest [Reference Range]: Clear (02/04/17 3:57 AM) UA Turbidity [Clear] Ltyellow *NA* (02/04/17 3:57 AM) UA Color 5.0 (02/04/17 3:57 AM) UA pH [5.0-8.0] 1.015 (02/04/17 3:57 AM) UA Spec Grav [<=1.030] 50 mg/dL *ABN* (02/04/17 3:57 AM) UA Glucose [Negative mg/dL] Negative (02/04/17 3:57 AM) UA Blood [Negative] Negative mg/dL *NA* (02/04/17 3:57 AM) UA Ketones [Negative mg/dL] Negative mg/dL (02/04/17 3:57 AM) UA Protein [Negative mg/dL] <=1.0 mg/dL *NA* (02/04/17 3:57 AM) UA Urobilinogen [0.1-1.0 mg/dL] Negative *NA* (02/04/17 3:57 AM) UA Bili [Negative] Negative (02/04/17 3:57 AM) UA Leuk Est [Negative] Negative (02/04/17 3:57 AM) UA Nitrite [Negative] 1 /HPF (02/04/17 3:57 AM) UA WBC [0-5 /HPF] <1 /HPF (02/04/17 3:57 AM) UA RBC [0-2 /HPF] Occasional /HPF *NA* (02/04/17 3:57 AM) UA Bacteria [None Seen /HPF] None Seen *NA* (02/04/17 3:57 AM) UA Sq Epi 3 /LPF *HI* (02/04/17 3:57 AM) UA Hyal Cast [0-2 /LPF] HEMATOLOGY 1 2 3 Most recent to oldest [Reference Range]: 6.9 K/CMM (02/05/17 2:47 AM) 8.5 K/CMM (02/04/17 1:07 AM) WBC [3.7-10.4 K/CMM] 3.46 M/CMM *LOW* (02/05/17 2:47 AM) 3.82 M/CMM *LOW* (02/04/17 1:07 AM) RBC [4.70-6.10 M/CMM] 10.4 g/dL *LOW* (02/05/17 2:47 AM) 11.7 g/dL *LOW* (02/04/17 1:07 AM) Hgb [14.0-18.0 g/dL] 31.5 % *LOW* (02/05/17 2:47 AM) 35.1 % *LOW* (02/04/17 1:07 AM) Hct [42.0-54.0 %] 91.2 fL (02/05/17 2:47 AM) 91.7 fL (02/04/17 1:07 AM) MCV [80.0-94.0 fL] 30.0 pg (02/05/17 2:47 AM) 30.7 pg (02/04/17 1:07 AM) MCH [27.0-31.0 pg] 32.9 g/dL (02/05/17 2:47 AM) 33.4 g/dL (02/04/17 1:07 AM) MCHC [32.0-36.0 g/dL] 13.4 % (02/05/17 2:47 AM) 13.5 % (02/04/17 1:07 AM) RDW [11.5-14.5 %] 151 K/CMM (02/05/17 2:47 AM) 171 K/CMM (02/04/17 1:07 AM) Platelet [133-450 K/CMM] 9.7 fL (02/05/17 2:47 AM) 10.6 fL *HI* (02/04/17 1:07 AM) MPV [7.4-10.4 fL] 55.8 % (02/05/17 2:47 AM) 61.4 % (02/04/17 1:07 AM) Segs [45.0-75.0 %] 30.8 % (02/05/17 2:47 AM) 27.6 % (02/04/17 1:07 AM) Lymphocytes [20.0-40.0 %] 7.3 % (02/05/17 2:47 AM) 6.4 % (02/04/17 1:07 AM) Monocytes [2.0-12.0 %] 5.3 % *HI* (02/05/17 2:47 AM) 3.9 % (02/04/17 1:07 AM) Eosinophils [0.0-4.0 %] 0.8 % (02/05/17 2:47 AM) 0.7 % (02/04/17 1:07 AM) Basophils [0.0-1.0 %] 3.9 K/CMM (02/05/17 2:47 AM) 5.2 K/CMM (02/04/17 1:07 AM) Segs-Bands # [1.5-8.1 K/CMM] 2.1 K/CMM (02/05/17 2:47 AM) 2.3 K/CMM (02/04/17 1:07 AM) Lymphocytes # [1.0-5.5 K/CMM] 0.5 K/CMM (02/05/17 2:47 AM) 0.5 K/CMM (02/04/17 1:07 AM) Monocytes # [0.0-0.8 K/CMM] 0.4 K/CMM (02/05/17 2:47 AM) 0.3 K/CMM (02/04/17 1:07 AM) Eosinophils # [0.0-0.5 K/CMM] 0.1 K/CMM (02/05/17 2:47 AM) 0.1 K/CMM (02/04/17 1:07 AM) Basophils # [0.0-0.2 K/CMM] 12.3 seconds (02/04/17 1:07 AM) PT [12.0-14.7 seconds] 0.90 (02/04/17 1:07 AM) INR [0.85-1.17] 35.9 seconds *HI* (02/04/17 1:07 AM) PTT [22.9-35.8 seconds] Immunizations No data available for this section Procedures Procedure Date Related Diagnosis Body Site Cystectomy1 09/23/67 Appendectomy 09/23/63 CABG x 3 - Coronary artery bypass grafts x 3 Stent placement2 1spine 2total x7 Social History Social History [...] Fair condition. Exercise type: Walking. 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 Activity level: Occasional physical work. Operates hazardous equipment: No. Alcohol Past Smoking Status Never smoker; Ready to change: No; Concerns about tobacco use in household: No; Exposure to Tobacco Smoke None; Cigarette Smoking Last 365 Days No; Reg Smoking Cessation Counseling No Assessment and Plan Extracted from: Title: Clinical Document Author: Meenakshi Chaidez MD Date: 02/05/17 Progress Note - Daily [facility] Completed: Sunday, FEBRUARY 05, 2017, 11:43 by Meenakshi Chaidez MD RM: CCDU - 07, SE [id number] (: 1945) M Attending: Meenakshi Chaidez MDPhone: Service: Internal Medicine Reason for Admission: BERNARDO (ACUTE KIDNEY INJURY), CHEST PAIN Working DRG: None Documented Code status: None Specified=FULL CODECurrent diet: Isolation: None Documented Allergies: NKDA SUBJECTIVE OBJECTIVE 24hr Labs 02/05 0800 Glucose LSC602 H 02/05 0412 Glucose POC74 02/05 0247 Glucose Lvl67 L BUN20 Creatinine Lvl0.93 Sodium Efz875 Potassium Lvl4.4 Chloride Hyi273 H CO228 AGAP9.4 L Calcium Lvl8.5 eGFR83 WBC6.9 RBC3.46 L Hgb10.4 L Hct31.5 L MCV91.2 MCH30.0 MCHC32.9 RDW13.4 Vmpvamgp330 MPV9.7 Segs55.8 Monocytes7.3 Tmkcyvortec02.8 Eosinophils5.3 H Basophils0.8 Segs-Bands #3.9 Lymphocytes #2.1 Monocytes #0.5 Eosinophils #0.4 Basophils #0.1 02/04 2109 Glucose FKB692 H 02/04 1626 Glucose LOU549 H Mehta still necessary (Yes/No): Line still necessary (Yes/No): VitalsTmp(F)[id number] 02/05 08:03 1696 21% 02/05 07:[id number]/683708--- 02/05 03:0297.244373/909978--- 02/05 00:4297.956536/218980--- 02/04 23:06 98 2.0L/m 24 Hr Tmax: 98.0F (36.67c) at 02/05 07:20Vital Signs are the last 5 in the past 48 hours. DateWt(kg)Wt(lb)Ht(cm)Ht(in)Method 02/04 (initial)100.00 220.00Measured 67.64 66.00Stated I&ORecordInOutBal 01/1624hr Tot 0 0 0 01/1524hr Tot 835 0 835 Medications (31) Active [...] IVP Q12H Unscheduled Meds: None PRN Meds (): 02/04/17 Dextrose 50% in [...] 1,000 mL 1,000 mL 75 ml/hr ASSESSMENT & EXAM PLAN & TREATMENT DIAGNOSES & PROBLEMS [id number] Ready for Discharge (Yes/No)? TEACHING ATTESTATION Extracted from: Title: CARDIOLOGY Author: Sha Galeano Date: 02/04/17 [facility] MD Dr. Chidi Garcia [id number], [address] [place], [place], [address] Office: [phone] REASON FOR CONSULT: CV management REQUESTING MD: Sherlyn Sweet MD HISTORY OF PRESENT ILLNESS Mr. Gruber is a pleasant 71yo gentleman with multiple medical conditions including cerebral palsy, HTN, HLD, DM, CAD s/p remote ACB in 2000, multiple PCIs last one in 2014 (RCA), who is being admitted with chest [...] Denies Endo: Denies Rheum: Denies PHYSICAL EXAM VitalsTmp(F)[id number] 02/04 15:[id number]--- 02/04 11:[id number]--- 02/04 09:10 97 1.0L/m 02/04 07:[id number]--- 02/04 04:35 2095 2.0L/m 24 Hr Tmax: 98.1F (36.72c) at 02/04 04:27Vital Signs are the last 5 in the past 48 hours. I&ORecordInOutBal 1524hr Tot 10 0 10 1424hr Tot 136 400 -264 GENERAL: In bed, [...] nsst Labs (Last four charted values) WBC 8.5(FEBRUARY 04) Hgb L 11.7(FEBRUARY 04) Hct L 35.1(FEBRUARY 04) Plt 171(FEBRUARY 04) Na 144(FEBRUARY 04) K 4.7(FEBRUARY 04) CO2 29(FEBRUARY 04) Cl 108(FEBRUARY 04) Cr H 1.60(FEBRUARY 04) BUN H 42(FEBRUARY 04) Glucose Random H 184(FEBRUARY 04) Ca 9.0(FEBRUARY 04) PT 12.3(FEBRUARY 04) INR 0.90(FEBRUARY 04) PTT H 35.9(FEBRUARY 04) Troponin <0.02(FEBRUARY 04)<0.02(FEBRUARY 04)<0.02(FEBRUARY 04) CK MB 1.8(FEBRUARY 04) Total CK H 224(FEBRUARY 04) Scheduled Meds (14): 02/05/17 aspirin (aspirin [...] 0.9%) 10 ml IVP Q12H PRN Meds (17): 02/04/17 Dextrose 50% in [...] Flush 0.9%) 10 ml IVP PRN ASSESSMENT & PLAN CAD - No evidence of ACS [...]
--- OUTSIDE RECORDS SUMMARY | 2019-04-17 10:36 | XMS REPORT | Summary of Care ---
Author Author [facility] Organization [facility] Address Unknown Phone Unavailable Encounter ARLENE Mohan(MIKE) [id number] Date(s): 03/14/17 - 03/17/17 [facility] [id number] [place] [address]- Discharge Disposition: Left Against Medical Advise Attending Physician: Meenakshi Chaidez MD Admitting Physician: Meenakshi Chaidez MD Vital Signs 1 2 3 Most recent to oldest [Reference Range]: 167.64 cm (03/14/17 3:44 PM) Height 106.506 kg (03/14/17 11:12 PM) Current Weight 98.4 DegF (03/17/17 12:18 AM) 97.7 DegF (03/16/17 9:33 PM) 98 DegF (03/16/17 3:57 PM) Temperature Oral [96.4-99.1 DegF] 158/64 mmHg *HI* (03/17/17 12:18 AM) 138/63 mmHg (03/16/17 9:33 PM) 109/56 mmHg (03/16/17 3:57 PM) Blood Pressure [90-140/60-90 mmHg] 18 BRMIN (03/17/17 12:18 AM) 18 BRMIN (03/16/17 9:33 PM) 20 BRMIN (03/16/17 3:57 PM) Respiratory Rate [14-20 BRMIN] 83 bpm (03/17/17 12:18 AM) 76 bpm (03/16/17 9:33 PM) 64 bpm (03/16/17 3:57 PM) Peripheral Pulse Rate [60-100 bpm] 100 kg (03/14/17 3:44 PM) Weight 35.58 m2 (03/14/17 3:44 PM) Body Mass Index Problem List Condition Effective Dates Status Health Status Informant [D]Chest Active pain(Confirmed) Arthritis(Confirmed) Active CAD - Coronary Active artery disease(Confirmed) Cerebral Active palsy(Confirmed) Chest Resolved pain(Confirmed) Chronic Active pain(Confirmed) Diabetes Active mellitus(Confirmed) [place] - Hard of Active hearing(Confirmed) Hypertension(Confirm Active ed) Incontinence of Active urine(Confirmed) Neuropathy(Confirmed Active ) Secondary, 12/01/08 Active uncontrolled diabetes mellitus without mention of complication(Confirm ed) Swelling of ankle Active joint(Confirmed)1 1Occasional swelling around both ankles Allergies, Adverse Reactions, Alerts Substance Reaction Severity Status NKDA Active Medications acetaminophen 650 mg, 2 tab, Route: PO, Drug form: TAB, Q4H, Dosing Weight 100, kg, PRN Pain 1 -3/Temp > 100.4 F, Start date: 03/14/17 20:41:00 CDT, Duration: 30 day, Stop date: 04/13/17 20:40:00 CDT Notes: Do not exceed 4 gm/day. (Same as: Tylenol) Start Date: 03/14/17 Stop Date: 03/17/17 Status: Discontinued aspirin 81 mg tablet, enteric coated 81 mg, 1 tab, Route: PO, Drug form: ECTAB, Daily, Dosing Weight 100, kg, Start d ate: 03/15/17 13:48:00 CDT, Duration: 30 day, Stop date: 04/14/17 9:00:00 CDT Notes: Do not crush or chew.(Same As: Ecotrin) Start Date: 03/15/17 Stop Date: 03/17/17 Status: Discontinued atorvastatin 40 mg, 1 tab, Route: PO, Drug form: TAB, Bedtime, Dosing Weight 100, kg, Start d ate: 03/15/17 21:00:00 CDT, Duration: 30 day, Stop date: 04/13/17 21:00:00 CDT Notes: (Same as: Lipitor) Start Date: 03/15/17 Stop Date: 03/17/17 Status: Discontinued carbidopa-levodopa 10 mg-100 mg oral tablet 1 tab, Route: PO, Drug Form: TAB, Dosing Weight 100, kg, BID, Start date: 17:00:00 CDT, Duration: 30 day, Stop date: 04/14/17 9:00:00 CDT Notes: Take with milk or food. (Same As: Sinemet) Start Date: 03/15/17 Stop Date: 03/17/17 Status: Discontinued cefepime + sodium chloride 0.9% INJ 100 mL 1 gm, Route: IVPB, [id number], Dosing Weight 100, kg, (CrCl 10 - 29 ml/min), Start date: 03/14/17 21:00:00 CDT, Duration: 10 day, Stop date: 03/23/17 21:00:00 CDT, ABX Indication: Bacteremia Notes: (Same As: Maxipime) MEDICATION WASTE Product Size: 1000 mgProduc t Wasted: ___ mg Start Date: 03/14/17 Stop Date: 03/17/17 Status: Discontinued clopidogrel 75 mg, 1 tab, Route: PO, Drug form: TAB, Daily, Dosing Weight 100, kg, Start merlene e: 03/16/17 9:00:00 CDT, Duration: 30 day, Stop date: 04/14/17 9:00:00 CDT Notes: (Same As: Plavix) Start Date: 03/16/17 Stop Date: 03/17/17 Status: Discontinued Dextrose 50% Syringe 12.5 gm, 25 mL, Route: IVP, Drug Form: INJ, Dosing Weight 100, kg, PRN, PRN Bloo d Glucose Results, Start date: 03/14/17 20:39:00 CDT, Duration: 30 day, Stop merlene e: 04/13/17 20:38:00 CDT Start Date: 03/14/17 Stop Date: 03/17/17 Status: Discontinued Dextrose 50% Syringe 25 gm, 50 mL, Route: IVP, Drug Form: INJ, Dosing Weight 100, kg, PRN, PRN Blood Glucose Results, Start date: 03/14/17 20:39:00 CDT, Duration: 30 day, Stop date: 04/13/17 20:38:00 CDT Start Date: 03/14/17 Stop Date: 03/17/17 Status: Discontinued docusate 100 mg, 1 cap, Route: PO, Drug form: CAP, BID, Dosing Weight 100, kg, Start date : 03/15/17 9:00:00 CDT, Duration: 30 day, Stop date: 04/13/17 17:00:00 CDT Notes: (Same as: Colace) (Do Not Crush) Start Date: 03/15/17 Stop Date: 03/17/17 Status: Discontinued glucagon 1 mg, Route: IM, Drug form: PDR/INJ, PRN, Dosing Weight 100, kg, PRN Blood Gluco se Results, Start date: 03/14/17 20:39:00 CDT, Duration: 30 day, Stop date: 03/24 11/09 20:38:00 CDT Start Date: 03/14/17 Stop Date: 03/17/17 Status: Discontinued insulin aspart 4 unit, 0.04 mL, Route: SUB-Q, Drug form: SOLN, Bedtime, Dosing Weight 100, kg, PRN Blood Glucose Results, Start date: 03/14/17 20:39:00 CDT, Duration: 30 day, Stop date: 04/13/17 20:38:00 CDT Notes: Roll in palms of hands gently; Do not shake vigorously. (Same as: Jolanta Zaidi)"single patient use only"WASTE: F/P - Black; E - Municipal Trash Bin Stable f or 28 days at room temperature.Expires in days from Date Start Date: 03/14/17 Stop Date: 03/17/17 Status: Discontinued insulin aspart 1 unit, 0.01 mL, Route: SUB-Q, Drug form: SOLN, Bedtime, Dosing Weight 100, kg, PRN Blood Glucose Results, Start date: 03/14/17 20:39:00 CDT, Duration: 30 day, Stop date: 04/13/17 20:38:00 CDT Notes: Roll in palms of hands gently; Do not shake vigorously. (Same as: NovoMIKAEL Zaidi)"single patient use only"WASTE: F/P - Black; E - Municipal Trash Bin Stable f or 28 days at room temperature.Expires in days from Date Start Date: 03/14/17 Stop Date: 03/17/17 Status: Discontinued insulin aspart 3 unit, 0.03 mL, Route: SUB-Q, Drug form: SOLN, Bedtime, Dosing Weight 100, kg, PRN Blood Glucose Results, Start date: 03/14/17 20:39:00 CDT, Duration: 30 day, Stop date: 04/13/17 20:38:00 CDT Notes: Roll in palms of hands gently; Do not shake vigorously. (Same as: Jolanta Zaidi)"single patient use only"WASTE: F/P - Black; E - Municipal Trash Bin Stable f or 28 days at room temperature.Expires in days from Date Start Date: 03/14/17 Stop Date: 03/17/17 Status: Discontinued insulin aspart 2 unit, 0.02 mL, Route: SUB-Q, Drug form: SOLN, Bedtime, Dosing Weight 100, kg, PRN Blood Glucose Results, Start date: 03/14/17 20:39:00 CDT, Duration: 30 day, Stop date: 04/13/17 20:38:00 CDT Notes: Roll in palms of hands gently; Do not shake vigorously. (Same as: Jolanta Zaidi)"single patient use only"WASTE: F/P - Black; E - Municipal Trash Bin Stable f or 28 days at room temperature.Expires in days from Date Start Date: 03/14/17 Stop Date: 03/17/17 Status: Discontinued insulin aspart 1 unit, 0.01 mL, Route: SUB-Q, Drug form: SOLN, TID-Before Meals, Dosing Weight 100, kg, PRN Blood Glucose Results, Start date: 03/14/17 20:39:00 CDT, Duration: 30 day, Stop date: 04/13/17 20:38:00 CDT Notes: Roll in palms of hands gently; Do not shake vigorously. (Same as: Jolanta Zaidi)"single patient use only"WASTE: F/P - Black; E - Municipal Trash Bin Stable f or 28 days at room temperature.Expires in days from Date Start Date: 03/14/17 Stop Date: 03/17/17 Status: Discontinued insulin aspart 3 unit, 0.03 mL, Route: SUB-Q, Drug form: SOLN, TID-Before Meals, Dosing Weight 100, kg, PRN Blood Glucose Results, Start date: 03/14/17 20:39:00 CDT, Duration: 30 day, Stop date: 04/13/17 20:38:00 CDT Notes: Roll in palms of hands gently; Do not shake vigorously. (Same as: Jolanta Zaidi)"single patient use only"WASTE: F/P - Black; E - Municipal Trash Bin Stable f or 28 days at room temperature.Expires in days from Date Start Date: 03/14/17 Stop Date: 03/17/17 Status: Discontinued insulin aspart 2 unit, 0.02 mL, Route: SUB-Q, Drug form: SOLN, TID-Before Meals, Dosing Weight 100, kg, PRN Blood Glucose Results, Start date: 03/14/17 20:39:00 CDT, Duration: 30 day, Stop date: 04/13/17 20:38:00 CDT Notes: Roll in palms of hands gently; Do not shake vigorously. (Same as: Jolanta Zaidi)"single patient use only"WASTE: F/P - Black; E - Municipal Trash Bin Stable f or 28 days at room temperature.Expires in days from Date Start Date: 03/14/17 Stop Date: 03/17/17 Status: Discontinued insulin aspart 4 unit, 0.04 mL, Route: SUB-Q, Drug form: SOLN, TID-Before Meals, Dosing Weight 100, kg, PRN Blood Glucose Results, Start date: 03/14/17 20:39:00 CDT, Duration: 30 day, Stop date: 04/13/17 20:38:00 CDT Notes: Roll in palms of hands gently; Do not shake vigorously. (Same as: Jolanta Zaidi)"single patient use only"WASTE: F/P - Black; E - Municipal Trash Bin Stable f or 28 days at room temperature.Expires in days from Date Start Date: 03/14/17 Stop Date: 03/17/17 Status: Discontinued insulin aspart 5 unit, 0.05 mL, Route: SUB-Q, Drug form: SOLN, TID-Before Meals, Dosing Weight 100, kg, PRN Blood Glucose Results, Start date: 03/14/17 20:39:00 CDT, Duration: 30 day, Stop date: 04/13/17 20:38:00 CDT Notes: Roll in palms of hands gently; Do not shake vigorously. (Same as: Jolanta Zaidi)"single patient use only"WASTE: F/P - Black; E - Municipal Trash Bin Stable f or 28 days at room temperature.Expires in days from Date Start Date: 03/14/17 Stop Date: 03/17/17 Status: Discontinued isosorbide dinitrate 90 mg, Route: PO, Drug form: TAB, Daily, Dosing Weight 100, kg, Start date: 02/22 01/07 9:00:00 CDT, Duration: 30 day, Stop date: 04/14/17 9:00:00 CDT Start Date: 03/16/17 Stop Date: 03/15/17 Status: Deleted isosorbide mononitrate 120 mg, 4 tab, Route: PO, Drug form: ERTAB, QAM, Dosing Weight 100, kg, Start da te: 03/16/17 9:00:00 CDT, Duration: 30 day, Stop date: 04/14/17 9:00:00 CDT Notes: (Same as:Imdur)"Do Not Crush" Take on empty stomach/ full glass of water . Do not crush Start Date: 03/16/17 Stop Date: 03/17/17 Status: Discontinued Kayexalate 30 gm, 120 mL, Route: PO, Drug form: SUSP, ONCE, Dosing Weight 100, kg, Start da te: 03/14/17 20:41:00 CDT, Stop date: 03/14/17 20:41:00 CDT Notes: (sodium polystyrene sulfonate 15 gm/60 ml GARRET) Shake well before use. (Same as: Kayexalate, SPS) Start Date: 03/14/17 Stop Date: 03/14/17 Status: Completed magnesium sulfate 2 gm, 50 mL, Route: IVPB, Drug form: INJ, ONCE, Dosing Weight 100, kg, Total dos e=2 gm, Start date: 03/14/17 20:44:00 CDT, Duration: 1 doses or times, Stop date : 03/14/17 20:44:00 CDT Notes: WASTE: F/P - Sink; E - Municipal Trash Bin Start Date: 03/14/17 Stop Date: 03/14/17 Status: Completed morphine Sulfate 4 mg, 1 mL, Route: IVP, Drug form: SOLN, ONCE, Dosing Weight 100, kg, Start date : 03/14/17 19:29:00 CDT, Stop date: 03/14/17 19:29:00 CDT Notes: (Same as:MORPhine Sulfate) Start Date: 03/14/17 Stop Date: 03/14/17 Status: Completed morphine Sulfate 1 mg, 0.5 mL, Route: IVP, Drug form: INJ, Q4H, Dosing Weight 100, kg, PRN Pain S core 1-5, Start date: 03/14/17 22:32:00 CDT, Duration: 30 day, Stop date: 22:31:00 CDT Notes: (Same as:MORPhine Sulfate) Start Date: 03/14/17 Stop Date: 03/17/17 Status: Discontinued Nitrostat 0.4 mg sublingual tablet 0.4 mg, 1 tab, Route: SL, Drug form: TAB, Q5Min, Dosing Weight 100, kg, PRN Ches t Pain, Start date: 03/15/17 13:36:00 CDT, Duration: 30 day, Stop date: 04/14/17 13:35:00 CDT Notes: (Same as:Nitroquick, Nitrostat)"Do Not Crush" Sublingual tablet Start Date: 03/15/17 Stop Date: 03/17/17 Status: Discontinued NS (Bolus) IV 1,000 mL, 1,000 ml/hr, Infuse Over: 1 hr, Route: IV, 1,000, Drug form: INJ, ONCE , Priority: STAT, Dosing Weight 100 kg, Start date: 03/14/17 21:25:00 CDT, Durat ion: 1 doses or times, Stop date: 03/14/17 21:25:00 CDT Start Date: 03/14/17 Stop Date: 03/14/17 Status: Completed NS (Bolus) IV 1,000 mL, 1,000 ml/hr, Infuse Over: 1 hr, Route: IV, 1,000, Drug form: INJ, ONCE , Priority: STAT, Dosing Weight 100 kg, Start date: 03/14/17 21:25:00 CDT, Durat ion: 1 doses or times, Stop date: 03/14/17 21:25:00 CDT Start Date: 03/14/17 Stop Date: 03/14/17 Status: Completed NS + KCL 20mEq/L 1000ml (Premix) 1,000 mL 1,000 mL, Rate: 75 ml/hr, Infuse over: 13.3 hr, Route: IV, Dosing Weight 100 kg, Total Volume: 1,000, Start date: 03/14/17 20:41:00 CDT, Duration: 30 day, Stop date: 04/13/17 20:40:00 CDT Notes: PREMIX IV - Do Not AlterWASTE: F/P - Sink; E - Municipal Trash Bin Start Date: 03/14/17 Stop Date: 03/14/17 Status: Discontinued pneumococcal 13-valent vaccine 0.5 mL, Route: IM, Drug Form: INJ, ONCALL, Start date: 03/14/17 23:00:00 CDT, Du ration: 1 doses or times Notes: Shake well prior to use (Same as: Prevnar 13) Start Date: 03/14/17 Stop Date: 03/17/17 Status: Discontinued Ranexa 500 mg oral tablet, extended release 500 mg, 1 tab, Route: PO, Drug form: TAB, BID, Dosing Weight 100, kg, Start date : 03/15/17 17:00:00 CDT, Duration: 30 day, Stop date: 04/14/17 9:00:00 CDT Notes: Same as Ranexa"Do Not Crush" Start Date: 03/15/17 Stop Date: 03/17/17 Status: Discontinued Saline Flush 0.9% 10 ml, Route: IVP, Drug Form: INJ, Dosing Weight 100, kg, PRN, PRN Line Flush, S tart date: 03/14/17 20:41:00 CDT, Duration: 30 day, Stop date: 04/13/17 20:40:00 CDT Notes: (Same as: BD Posiflush) Start Date: 03/14/17 Stop Date: 03/17/17 Status: Discontinued Saline Flush 0.9% 10 mL, Route: IVP, Drug Form: INJ, Dosing Weight 100, kg, PRN, PRN Line Flush, S tart date: 03/14/17 16:14:00 CDT, Duration: 30 day, Stop date: 04/13/17 16:13:00 CDT Notes: (Same as: BD Posiflush) Start Date: 03/14/17 Stop Date: 03/17/17 Status: Discontinued sodium bicarbonate 325 mg oral tablet 1,300 mg, 2 tab, Route: PO, Drug form: TAB, BID, Dosing Weight 100, kg, Start da te: 03/15/17 17:00:00 CDT, Duration: 30 day, Stop date: 04/14/17 9:00:00 CDT Notes: "Dissolve tablet in a glass of water prior to oral administration. STOMA CH WARNING: To avoid serious injury, do not take until tablet is completely diss olved. It is very important not to take this product when overly full from food or drink." Start Date: 03/15/17 Stop Date: 03/16/17 Status: Discontinued sodium chloride 0.9% 1000 ml INJ 1,000 mL 1,000 mL, Rate: 125 ml/hr, Infuse over: 8 hr, Route: IV, Dosing Weight 100 kg, T otal Volume: 1,000, Start date: 03/14/17 21:26:00 CDT, Duration: 30 day, Stop da te: 04/13/17 21:25:00 CDT Start Date: 03/14/17 Stop Date: 03/17/17 Status: Discontinued Toprol-XL 50 mg oral tablet, extended release 50 mg, 1 tab, Route: PO, Drug form: ERTAB, Daily, Start date: 03/16/17 9:00:00 C DT, Duration: 30 day, Stop date: 04/14/17 9:00:00 CDT Notes: (Same as: Toprol XL) May split tab, but do not crush. Start Date: 03/16/17 Stop Date: 03/17/17 Status: Discontinued vancomycin + sodium chloride 0.9% INJ 250 mL 1 gm, Route: IV, ONCE, Dosing Weight 100, kg, Start date: 03/14/17 20:41:00 CDT, Stop date: 03/14/17 20:41:00 CDT, ABX Indication: Bacteremia Notes: TIME CRITICAL MEDICATION(Same As: Vancocin)Infusion rate< 1000 mg: infuse over 1 [id number] - 1500 mg: infuse over 1.5 [id number] - 2000 mg: infuse over 2 hours> 2001 mg: infuse over 2.5 hours MEDICATION WASTE Product Size: 1000 mgProduct Wasted: ___ mg Start Date: 03/14/17 Stop Date: 03/14/17 Status: Completed Xanax 0.25 mg oral tablet 0.25 mg, 1 tab, Route: PO, Drug form: TAB, BID, Dosing Weight 100, kg, PRN as ne eded for anxiety, Start date: 03/16/17 21:25:00 CDT, Duration: 30 day, Stop date : 04/15/17 21:24:00 CDT Notes: With food or milk(Same as: Xanax) Start Date: 03/16/17 Stop Date: 03/17/17 Status: Discontinued Zofran 2 mg, 1 mL, Route: IV, Drug form: INJ, Q4H, Dosing Weight 100, kg, PRN as needed for nausea/vomiting, Start date: 03/14/17 22:32:00 CDT, Duration: 30 day, Stop date: 04/13/17 22:31:00 CDT Notes: (Same as: Zofran) MEDICATION WASTE Product Size: 4 mgProduct Was kerri: ___ mg Start Date: 03/14/17 Stop Date: 03/17/17 Status: Discontinued Zofran 4 mg, 2 mL, Route: IVP, Drug form: INJ, ONCE, Dosing Weight 100, kg, Start date: 03/14/17 19:29:00 CDT, Stop date: 03/14/17 19:29:00 CDT Notes: (Same as: Zofran) MEDICATION WASTE Product Size: 4 mgProduct Was kerri: ___ mg Start Date: 03/14/17 Stop Date: 03/14/17 Status: Completed Results ELECTROLYTES 1 2 3 Most recent to oldest [Reference Range]: 144 mEq/L (03/16/17 4:08 AM) 139 mEq/L (03/15/17 9:53 AM) 136 mEq/L (03/14/17 7:22 PM) Sodium Lvl [135-145 mEq/L] 4.8 mEq/L (03/16/17 4:08 AM) 5.3 mEq/L *HI* (03/15/17 9:53 AM) 6.0 mEq/L *HI* (03/14/17 7:22 PM) Potassium Lvl [3.5-5.1 mEq/L] 118 mEq/L *HI* (03/16/17 4:08 AM) 114 mEq/L *HI* (03/15/17 9:53 AM) 108 mEq/L (03/14/17 7:22 PM) Chloride Lvl [95-109 mEq/L] 23 mEq/L *LOW* (03/16/17 4:08 AM) 16 mEq/L *LOW* (03/15/17 9:53 AM) 21 mEq/L *LOW* (03/14/17 7:22 PM) CO2 [24-32 mEq/L] 7.8 mEq/L *LOW* (03/16/17 4:08 AM) 14.3 mEq/L (03/15/17 9:53 AM) 13.0 mEq/L (03/14/17 7:22 PM) AGAP [10.0-20.0 mEq/L] CHEM PANEL 1 2 3 Most recent to oldest [Reference Range]: 2.30 mg/dL *HI* (03/16/17 4:08 AM) 3.70 mg/dL *HI* (03/15/17 9:53 AM) 4.80 mg/dL *HI* (03/14/17 7:22 PM) Creatinine Lvl [0.50-1.40 mg/dL] 28 mL/min/1.73m2 1 *NA* (03/16/17 4:08 AM) 16 mL/min/1.73m2 2 *NA* (03/15/17 9:53 AM) 11 mL/min/1.73m2 3 *NA* (03/14/17 7:22 PM) eGFR 44 mg/dL *HI* (03/16/17 4:08 AM) 58 mg/dL *HI* (03/15/17 9:53 AM) 67 mg/dL *HI* (03/14/17 7:22 PM) BUN [7-22 mg/dL] 19 (03/16/17 4:08 AM) 16 (03/15/17 9:53 AM) 14 (03/14/17 7:22 PM) B/C Ratio [6-25] 126 mg/dL *HI* (03/16/17 4:08 AM) 89 mg/dL (03/15/17 9:53 AM) 142 mg/dL *HI* (03/14/17 7:22 PM) Glucose Lvl [70-99 mg/dL] 5.8 g/dL *LOW* (03/16/17 4:08 AM) 6.2 g/dL *LOW* (03/15/17 9:53 AM) 8.1 g/dL (03/14/17: PM) Total Protein [6.4-8.4 g/dL] 2.8 g/dL *LOW* (03/16/17 4:08 AM) 3.3 g/dL *LOW* (03/15/17 9:53 AM) 4.1 g/dL (03/14/17 7:22 PM) Albumin Lvl [3.5-5.0 g/dL] 3.0 g/dL (03/16/17 4:08 AM) 2.9 g/dL (03/15/17 9:53 AM) 4.0 g/dL (03/14/17 7:22 PM) Globulin [2.7-4.2 g/dL] 0.9 (03/16/17 4:08 AM) 1.1 (03/15/17 9:53 AM) 1.0 (03/14/17 7:22 PM) A/G Ratio [0.7-1.6] 7.7 mg/dL *LOW* (03/16/17 4:08 AM) 7.7 mg/dL *LOW* (03/15/17 9:53 AM) 9.1 mg/dL (03/14/17 7:22 PM) Calcium Lvl [8.5-10.5 mg/dL] 1.7 mg/dL *LOW* (03/14/17 7:22 PM) Magnesium Lvl [1.8-2.4 mg/dL] 11 unit/L (03/16/17 4:08 AM) 17 unit/L (03/15/17 9:53 AM) 21 unit/L (03/14/17 7:22 PM) ALT [0-65 unit/L] 10 unit/L (03/16/17 4:08 AM) 10 unit/L (03/15/17 9:53 AM) 10 unit/L (03/14/17 7:22 PM) AST [0-37 unit/L] 70 unit/L (03/16/17 4:08 AM) 79 unit/L (03/15/17 9:53 AM) 94 unit/L (03/14/17 7:22 PM) Alk Phos [39-136 unit/L] 0.6 mg/dL (03/16/17 4:08 AM) 0.4 mg/dL (03/15/17 9:53 AM) 0.3 mg/dL (03/14/17 7:22 PM) Bili Total [0.2-1.3 mg/dL] 656 unit/L *HI* (03/15/17 4:19 AM) 691 unit/L *HI* (03/14/17 7:22 PM) Lipase Lvl [73-393 unit/L] 1Result Comment: The eGFR is calculated using [...] be mul tiplied by the estimated BMI. 3Result Comment: The eGFR is calculated using the [...] 3 Most recent to oldest [Reference Range]: 197 unit/L *HI* (03/14/17 7:22 PM) Total CK [12-191 unit/L] 1.4 ng/mL (03/14/17 7:22 PM) CK MB [0.5-3.6 ng/mL] 0.7 (03/14/17 7:22 PM) CK MB Index [0.0-2.5] <0.02 ng/mL (03/14/17 7:22 PM) Troponin-I [0.00-0.40 ng/mL] 27 pg/mL (03/14/17 7:22 PM) BNP [<=100 pg/mL] URINE CHEM 1 2 3 Most recent to oldest [Reference Range]: 60.6 mg/L *NA* (03/15/17 2:49 PM) U Microalb 40.4 mcg/mg creat *HI* (03/15/17 2:49 PM) U Alb/Crea [<=30.0 mcg/mg creat] 150.00 mg/dL *NA* (03/15/17 2:49 PM) 150.00 mg/dL *NA* (03/15/17 2:49 PM) U Creatinine 31.0 mg/dL *NA* (03/15/17 2:49 PM) U Protein 0.2 *NA* (03/15/17 2:49 PM) U Prot/Creat 27 mEq/L *NA* (03/15/17 2:49 PM) U Sodium None Seen (03/15/17 2:49 PM) U Eos [None Seen] URINE AND STOOL 1 2 3 Most recent to oldest [Reference Range]: Clear (03/15/17 2:49 PM) Clear (03/15/17 12:45 AM) UA Turbidity [Clear] Ltyellow *NA* (03/15/17 2:49 PM) Diana *NA* (03/15/17 12:45 AM) UA Color 5.0 (03/15/17 2:49 PM) 5.0 (03/15/17 12:45 AM) UA pH [5.0-8.0] 1.011 (03/15/17 2:49 PM) 1.018 (03/15/17 12:45 AM) UA Spec Grav [<=1.030] Negative mg/dL *NA* (03/15/17 2:49 PM) Negative mg/dL *NA* (03/15/17 12:45 AM) UA Glucose [Negative mg/dL] Large *ABN* (03/15/17 2:49 PM) Small *ABN* (03/15/17 12:45 AM) UA Blood [Negative] Negative mg/dL *NA* (03/15/17 2:49 PM) Negative mg/dL *NA* (03/15/17 12:45 AM) UA Ketones [Negative mg/dL] Negative mg/dL (03/15/17 2:49 PM) 30 mg/dL *ABN* (03/15/17 12:45 AM) UA Protein [Negative mg/dL] <=1.0 mg/dL *NA* (03/15/17 2:49 PM) <=1.0 mg/dL *NA* (03/15/17 12:45 AM) UA Urobilinogen [0.1-1.0 mg/dL] Negative *NA* (03/15/17 2:49 PM) Negative *NA* (03/15/17 12:45 AM) UA Bili [Negative] Trace *ABN* (03/15/17 2:49 PM) Trace *ABN* (03/15/17 12:45 AM) UA Leuk Est [Negative] Negative (03/15/17 2:49 PM) Negative (03/15/17 12:45 AM) UA Nitrite [Negative] 7 /HPF *HI* (03/15/17 2:49 PM) 4 /HPF (03/15/17 12:45 AM) UA WBC [0-5 /HPF] 40 /HPF *HI* (03/15/17 2:49 PM) 1 /HPF (03/15/17 12:45 AM) UA RBC [0-2 /HPF] Occasional /HPF *NA* (03/15/17 2:49 PM) Occasional /HPF *NA* (03/15/17 12:45 AM) UA Bacteria [None Seen /HPF] Occasional /LPF *NA* (03/15/17 2:49 PM) Occasional /LPF *NA* (03/15/17 12:45 AM) UA Sq Epi [Few /LPF] 3 /LPF *HI* (03/15/17 2:49 PM) 15 /LPF *HI* (03/15/17 12:45 AM) UA Hyal Cast [0-2 /LPF] Occasional /HPF *ABN* (03/15/17 12:45 AM) UA [place] Yeast [None Seen /HPF] HEMATOLOGY 1 2 3 Most recent to oldest [Reference Range]: 8.2 K/CMM (03/16/17 4:08 AM) 21.3 K/CMM *HI* (03/14/17 7:22 PM) WBC [3.7-10.4 K/CMM] 3.48 M/CMM *LOW* (03/16/17 4:08 AM) 4.24 M/CMM *LOW* (03/14/17: PM) RBC [4.70-6.10 M/CMM] 10.6 g/dL *LOW* (03/16/17 4:08 AM) 12.7 g/dL *LOW* (03/14/17: PM) Hgb [14.0-18.0 g/dL] 32.6 % *LOW* (03/16/17 4:08 AM) 39.7 % *LOW* (03/14/17 PM) Hct [42.0-54.0 %] 93.5 fL (03/16/17 4:08 AM) 93.5 fL (03/14/17: PM) MCV [80.0-94.0 fL] 30.6 pg (03/16/17 4:08 AM) 29.9 pg (03/14/17: PM) MCH [27.0-31.0 pg] 32.7 g/dL (03/16/17 4:08 AM) 32.0 g/dL (03/14/17: PM) MCHC [32.0-36.0 g/dL] 14.4 % (03/16/17 4:08 AM) 14.3 % (03/14/17: PM) RDW [11.5-14.5 %] 140 K/CMM (03/16/17 4:08 AM) 214 K/CMM (03/14/17: PM) Platelet [133-450 K/CMM] 9.7 fL (03/16/17 4:08 AM) 10.2 fL (03/14/17: PM) MPV [7.4-10.4 fL] 85.3 % *HI* (03/14/17: PM) Segs [45.0-75.0 %] 7.7 % *LOW* (03/14/17 PM) Lymphocytes [20.0-40.0 %] 5.8 % (03/14/17 PM) Monocytes [2.0-12.0 %] 0.9 % (03/14/17 PM) Eosinophils [0.0-4.0 %] 0.3 % (6/22/17 7:22 PM) Basophils [0.0-1.0 %] 18.2 K/CMM *HI* (03/14/17 7:22 PM) Segs-Bands # [1.5-8.1 K/CMM] 1.6 K/CMM (03/14/17 7:22 PM) Lymphocytes # [1.0-5.5 K/CMM] 1.2 K/CMM *HI* (03/14/17 7:22 PM) Monocytes # [0.0-0.8 K/CMM] 0.2 K/CMM (03/14/17 7:22 PM) Eosinophils # [0.0-0.5 K/CMM] 0.1 K/CMM (03/14/17 7:22 PM) Basophils # [0.0-0.2 K/CMM] 13.7 seconds (03/14/17 7:22 PM) PT [12.0-14.7 seconds] 1.03 (03/14/17 7:22 PM) INR [0.85-1.17] 33.2 seconds (03/14/17 7:22 PM) PTT [22.9-35.8 seconds] Immunizations No data available [...] Fair condition. Exercise type: Walking. 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 Activity level: Occasional physical work. Operates hazardous equipment: No. Alcohol Past, Type Beer, Wine, Liquor.1 Smoking Status Former smoker; Ready to change: No; Concerns about tobacco use in household: No; Exposure to Tobacco Smoke None; Other Tobacco Frequency stopped 10yrs ago; Cigarette Smoking Last 365 Days No; Reg Smoking Cessation Counseling Yes 16 pack every other day Assessment and Plan Extracted from: Title: Nephrology progress note Author: Maximino Parry MD Date: 03/16/17 Nephrology Progress Note SUBJECTIVE: Patient is doing well today with no other complaints. Tolerating oral food well. Patient seen and evaluated at bedside. No overnight events. Denies chest pain, nausea, vomiting, diarrhea, headache, lightheadness, abdomen pain or dizziness. OBJECTIVE: VitalsTmp(F)[id number] 03/16 [id number]--- 03/16 12:[id number]--- 03/16 08:[id number]/095994--- 03/16 04:4298.642244/6820------ 03/16 00:1898.057507/7320------ 24 Hr Tmax: 98.7F (37.06c) at 03/16 04:42Vital Signs are the last 5 in the past 48 hours. I&ORecordInOutBal 4hr Tot 2710 1900 810 2324hr Tot 2441 1900 541 Labs (Last four charted values) WBC 8.2(JUAN FRANCISCO 24)H 21.3(JUAN FRANCISCO 22) Hgb L 10.6(JUAN FRANCISCO 24)L 12.7(JUAN FRANCISCO 22) Hct L 32.6(JUAN FRANCISCO 24)L 39.7(JUAN FRANCISCO 22) Plt 140(JUAN FRANCISCO 24)214(JUAN FRANCISCO 22) Na 144(JUAN FRANCISCO 24)139(JUAN FRANCISCO 23)136(JUAN FRANCISCO 22) K 4.8(JUAN FRANCISCO 24)H 5.3(JUAN FRANCISCO 23)H 6.0(JUAN FRANCISCO 22) CO2 L 23(JUAN FRANCISCO 24)L 16(JUAN FRANCISCO 23)L 21(JUAN FRANCISCO 22) Cl H 118(JUAN FRANCISCO 24)H 114(JUAN FRANCISCO 23)108(JUAN FRANCISCO 22) Cr H 2.30(JUAN FRANCISCO 24)H 3.70(JUAN FRANCISCO 23)H 4.80(JUAN FRANCISCO 22) BUN H 44(JUAN FRANCISCO 24)H 58(JUAN FRANCISCO 23)H 67(JUAN FRANCISCO 22) Glucose Random H 126(JUAN FRANCISCO 24)89(JUAN FRANCISCO 23)H 142(JUAN FRANCISCO 22) Mg L 1.7(JUAN FRANCISCO 22) Ca L 7.7(JUAN FRANCISCO 24)L 7.7(JUAN FRANCISCO 23)9.1(MAR 14) PT 13.7(MAR 14) INR 1.03(MAR 14) PTT 33.2(MAR 14) Troponin <0.02(MAR 14) CK MB 1.4(MAR 14) Total CK H 197(MAR 14) Medications (30) Active Scheduled: (11) aspirin 81 mg ECT 81 mg 1 tab, PO, Daily atorvastatin 40mg tab 40 mg 1 tab, PO, Bedtime carbidopa-levodopa 10-100 mg TAB 1 tab, PO, BID cefepime 1 gm INJ + sodium chloride 0.9% INJ 100 mL 1 gm, IVPB, [id number] clopidogrel 75 mg TAB 75 mg 1 [...] clear and coherent. Psychiatric: Cooperative, Appropriate mood & affect. Renal ultrasound: KIDNEY: The right kidney [...] will continue to follow with you Extracted from: Title: Nephrology consult note Author: Maximino Parry MD [...]
--- OUTSIDE RECORDS SUMMARY | 2019-04-17 10:36 | XMS REPORT | Summary of Care ---
Author Author [facility] Organization [facility] Address Unknown Phone Unavailable Encounter ARLENE Mohan(MIKE) [id number] Date(s): 01/09/16 - 01/11/16 [facility] [address] [employer] provided by [facility] [employer] [facility] [place] [address]- Discharge Disposition: Home Attending Physician: Brendon Cruz MD Admitting Physician: Reyes Sheffield MD Vital Signs 1 2 3 Most recent to oldest [Reference Range]: 167.64 cm (01/10/16 11:05 PM) Height 98.807 kg (01/11/16 7:42 AM) Current Weight 98.2 DegF (01/11/16 4:45 PM) 97.2 DegF (01/11/16 12:00 PM) 97.0 DegF (01/11/16 8:00 AM) Temperature Oral [96.4-99.1 DegF] 154/69 mmHg *HI* (01/11/16 9:00 AM) 135/70 mmHg (01/11/16 8:00 AM) 124/61 mmHg (01/11/16 5:00 AM) Blood Pressure [90-140/60-90 mmHg] 16 BRMIN (01/11/16 9:52 AM) 41 BRMIN *HI* (01/10/16 9:00 PM) 20 BRMIN (01/10/16 8:26 PM) Respiratory Rate [14-20 BRMIN] 80 bpm (01/09/16 11:08 PM) 80 bpm (01/09/16 11:00 PM) Peripheral Pulse Rate [60-100 bpm] 98.892 kg (01/10/16 11:05 PM) Weight 35.19 m2 (01/10/16 11:05 PM) Body Mass Index Problem List Condition Effective Dates Status Health Status Informant [D]Chest Active pain(Confirmed) Arthritis(Confirmed) Active CAD - Coronary Active artery disease(Confirmed) Cerebral Active palsy(Confirmed) Chronic Active pain(Confirmed) Diabetes Active mellitus(Confirmed) SYCUAN - Hard of Active hearing(Confirmed) Hypertension(Confirm Active ed) Incontinence of Active urine(Confirmed) Neuropathy(Confirmed Active ) Secondary, 12/01/08 Active uncontrolled diabetes mellitus without mention of complication(Confirm ed) Swelling of ankle Active joint(Confirmed)1 1Occasional swelling around both ankles Allergies, Adverse Reactions, Alerts Substance Reaction Severity Status NKDA Active Medications Al hydroxide/Mg hydroxide/simethicone 200 mg-200 mg-20 mg/5 mL oral suspension 30 mL, Route: PO, Drug Form: SUSP, Dosing Weight 104.545, kg, Q12H, PRN Indigest ion, Start date: 01/10/16 1:26:00 CDT, Duration: 30 day, Stop date: 02/09/16 1:2 5:00 CDT Notes: (aluminum hydroxide-magnesium hyd-simethicone [phone]/5ml 30 ml ud S US) Start Date: 01/10/16 Stop Date: 01/11/16 Status: Discontinued aspirin 324 mg, 4 tab, Route: CHEW, Drug form: CHEWTAB, ONCE, Dosing Weight 104.545, kg, Priority: STAT, Start date: 01/09/16 23:13:00 CDT, Stop date: 01/09/16 23:13:00 CDT Notes: Take with food. Start Date: 01/09/16 Stop Date: 01/09/16 Status: Completed aspirin 81 mg, 1 tab, Route: PO, Drug form: CHEWTAB, Daily, Dosing Weight 104.545, kg, S tart date: 01/10/16 9:00:00 CDT, Duration: 30 day, Stop date: 02/08/16 9:00:00 C DT Notes: Take with food. Start Date: 01/10/16 Stop Date: 01/11/16 Status: Discontinued atorvastatin 40 mg, 1 tab, Route: PO, Drug form: TAB, Daily, Dosing Weight 104.545, kg, Start date: 01/10/16 9:00:00 CDT, Duration: 30 day, Stop date: 02/08/16 9:00:00 CDT Notes: (Same as: Lipitor) Start Date: 01/10/16 Stop Date: 01/11/16 Status: Discontinued calcium carbonate 500 mg (200 mg elemental calcium) oral tablet 1,000 mg, 2 tab, Route: PO, Drug form: CHEWTAB, PRN, Dosing Weight 104.545, kg, PRN Abnormal Lab Result, FOR ICU USE ONLY, Start date: 01/10/16 2:34:00 CDT, Dur ation: 30 day, Stop date: 02/09/16 2:33:00 CDT Notes: (Same As: Tums)Calcium Carbonate 500 gr=310 mg elemental calcium Dose=_ mg calcium carbonate ( mg elemental calcium) Start Date: 01/10/16 Stop Date: 01/11/16 Status: Discontinued calcium carbonate 500 mg (200 mg elemental calcium) oral tablet 500 mg, 1 tab, Route: PO, Drug form: CHEWTAB, PRN, Dosing Weight 104.545, kg, NH N Abnormal Lab Result, FOR ICU USE ONLY, Start date: 01/10/16 2:34:00 CDT, Durat ion: 30 day, Stop date: 02/09/16 2:33:00 CDT Notes: (Same As: Tums)Calcium Carbonate 500 xz=290 mg elemental calcium Dose=_ mg calcium carbonate ( mg elemental calcium) Start Date: 01/10/16 Stop Date: 01/11/16 Status: Discontinued calcium gluconate + Sodium Chloride 0.9% IV 50 mL 1 gm, 10 mL, Route: IVPB, PRN, Dosing Weight 104.545, kg, PRN Abnormal Lab Resul t, Start date: 01/10/16 2:34:00 CDT, Duration: 30 day, Stop date: 02/09/16 2:33: 00 CDT, FOR ICU USE ONLY Notes: WASTE: F/P - Sink; E - Municipal Trash Bin Start Date: 01/10/16 Stop Date: 01/11/16 Status: Discontinued clopidogrel 75 mg, 1 tab, Route: PO, Drug form: TAB, Daily, Dosing Weight 104.545, kg, Prior ity: Routine, Start date: 01/10/16 9:00:00 CDT, Duration: 30 day, Stop date: 9:00:00 CDT Notes: (Same As: Plavix) Start Date: 01/10/16 Stop Date: 01/11/16 Status: Discontinued Dextrose 50% Syringe 25 gm, 50 mL, Route: IVP, Drug Form: INJ, Dosing Weight 104.545, kg, PRN, PRN Bl ood Glucose Results, Start date: 01/10/16 1:44:00 CDT, Duration: 30 day, Stop da te: 02/09/16 1:43:00 CDT Start Date: 01/10/16 Stop Date: 01/11/16 Status: Discontinued Dextrose 50% Syringe 12.5 gm, 25 mL, Route: IVP, Drug Form: INJ, Dosing Weight 104.545, kg, PRN, PRN Blood Glucose Results, Start date: 01/10/16 1:44:00 CDT, Duration: 30 day, Stop date: 02/09/16 1:43:00 CDT Start Date: 01/10/16 Stop Date: 01/11/16 Status: Discontinued docusate 100 mg, 1 cap, Route: PO, Drug form: CAP, Q12H, Dosing Weight 104.545, kg, Start date: 01/10/16 9:00:00 CDT, Duration: 30 day, Stop date: 02/08/16 21:00:00 CDT Notes: (Same as: Colace) (Do Not Crush) Start Date: 01/10/16 Stop Date: 01/11/16 Status: Discontinued furosemide 40 mg oral tablet 40 mg=1 tab, PO, Bedtime, # 30 tab, 0 Refill(s) Start Date: 01/10/16 Status: Ordered gabapentin 600 mg oral tablet 600 mg=1 tab, PO, TID, # 270 tab, 0 Refill(s) Start Date: 01/10/16 Status: Ordered glimepiride 2 mg, 1 tab, Route: PO, Drug form: TAB, Daily, Dosing Weight 104.545, kg, Start date: 01/10/16 9:00:00 CDT, Duration: 30 day, Stop date: 02/08/16 9:00:00 CDT Notes: (Same as: Amaryl) Start Date: 01/10/16 Stop Date: 01/11/16 Status: Discontinued glimepiride 2 mg oral tablet 2 mg=1 tab, PO, Breakfast, # 30 tab, 0 Refill(s) Start Date: 01/10/16 Status: Ordered glucagon 1 mg, Route: IM, Drug form: PDR/INJ, PRN, Dosing Weight 104.545, kg, PRN Blood G lucose Results, Start date: 01/10/16 1:44:00 CDT, Duration: 30 day, Stop date: 0 02/09/16 1:43:00 CDT Start Date: 01/10/16 Stop Date: 01/11/16 Status: Discontinued Imdur 90 mg, 3 tab, Route: PO, Drug form: ERTAB, QAM, Dosing Weight 104.545, kg, Start date: 01/10/16 9:00:00 CDT, Duration: 30 day, Stop date: 02/08/16 9:00:00 CDT Notes: (Same as:Imdur)"Do Not Crush" Take on empty stomach/ full glass of water . Do not crush Start Date: 01/10/16 Stop Date: 01/11/16 Status: Discontinued insulin aspart 2 unit, 0.02 mL, Route: SUB-Q, Drug form: SOLN, Sliding Scale, Dosing Weight 104 .545, kg, PRN Blood Glucose Results, Start date: 01/10/16 1:44:00 CDT, Duration: 30 day, Stop date: 02/09/16 1:43:00 CDT Notes: Roll in palms of hands gently; Do not shake vigorously. (Same as: Jolanta Zaidi)"single patient use only"WASTE: F/P - Black; E - Municipal Trash Bin Stable f or 28 days at room temperature.Expires in days from Date Start Date: 01/10/16 Stop Date: 01/11/16 Status: Discontinued insulin aspart 8 unit, 0.08 mL, Route: SUB-Q, Drug form: SOLN, Sliding Scale, Dosing Weight 104 .545, kg, PRN Blood Glucose Results, Start date: 01/10/16 1:44:00 CDT, Duration: 30 day, Stop date: 02/09/16 1:43:00 CDT Notes: Roll in palms of hands gently; Do not shake vigorously. (Same as: NovoMIKAEL Zaidi)"single patient use only"WASTE: F/P - Black; E - Municipal Trash Bin Stable f or 28 days at room temperature.Expires in days from Date Start Date: 01/10/16 Stop Date: 01/11/16 Status: Discontinued insulin aspart 10 unit, 0.1 mL, Route: SUB-Q, Drug form: SOLN, Sliding Scale, Dosing Weight 104 .545, kg, PRN Blood Glucose Results, Start date: 01/10/16 1:44:00 CDT, Duration: 30 day, Stop date: 02/09/16 1:43:00 CDT Notes: Roll in palms of hands gently; Do not shake vigorously. (Same as: NovoMIKAEL Zaidi)"single patient use only"WASTE: F/P - Black; E - Municipal Trash Bin Stable f or 28 days at room temperature.Expires in days from Date Start Date: 01/10/16 Stop Date: 01/11/16 Status: Discontinued insulin aspart 4 unit, 0.04 mL, Route: SUB-Q, Drug form: SOLN, Sliding Scale, Dosing Weight 104 .545, kg, PRN Blood Glucose Results, Start date: 01/10/16 1:44:00 CDT, Duration: 30 day, Stop date: 02/09/16 1:43:00 CDT Notes: Roll in palms of hands gently; Do not shake vigorously. (Same as: NovoMIKAEL Zaidi)"single patient use only"WASTE: F/P - Black; E - Municipal Trash Bin Stable f or 28 days at room temperature.Expires in days from Date Start Date: 01/10/16 Stop Date: 01/11/16 Status: Discontinued insulin aspart 6 unit, 0.06 mL, Route: SUB-Q, Drug form: SOLN, Sliding Scale, Dosing Weight 104 .545, kg, PRN Blood Glucose Results, Start date: 01/10/16 1:44:00 CDT, Duration: 30 day, Stop date: 02/09/16 1:43:00 CDT Notes: Roll in palms of hands gently; Do not shake vigorously. (Same as: Jolanta Zaidi)"single patient use only"WASTE: F/P - Black; E - Municipal Trash Bin Stable f or 28 days at room temperature.Expires in days from Date Start Date: 01/10/16 Stop Date: 01/11/16 Status: Discontinued isosorbide dinitrate 30 mg oral tablet 90 mg=3 tab, PO, Daily, 0 Refill(s) Start Date: 01/10/16 Status: Ordered Lasix 40 mg, 1 tab, Route: PO, Drug form: TAB, Daily, Dosing Weight 104.545, kg, Start date: 01/10/16 9:00:00 CDT, Duration: 30 day, Stop date: 02/08/16 9:00:00 CDT Notes: (Same as: Lasix) May cause GI upset. Give with food or milk. Start Date: 01/10/16 Stop Date: 01/11/16 Status: Discontinued lisinopril 20 mg, 1 tab, Route: PO, Drug form: TAB, Daily, Dosing Weight 104.545, kg, Start date: 01/10/16 9:00:00 CDT, Duration: 30 day, Stop date: 02/08/16 9:00:00 CDT Notes: (Same as: Prinivil, Zestril) Start Date: 01/10/16 Stop Date: 01/11/16 Status: Discontinued lisinopril 20 mg oral tablet 20 mg=1 tab, PO, Daily, # 30 tab, 0 Refill(s) Start Date: 01/10/16 Status: Ordered magnesium oxide 800 mg, 2 tab, Route: PO, Drug form: TAB, PRN, Dosing Weight 104.545, kg, PRN Ab normal Lab Result, FOR ICU USE ONLY, Start date: 01/10/16 2:34:00 CDT, Duration: 30 day, Stop date: 02/09/16 2:33:00 CDT Notes: (Same as: Mag-Ox 400)Magnesium oxide 200ff=384ti elemental magnesiumDose= ____mg magnesium oxide (___mg elemental magnesium) Start Date: 01/10/16 Stop Date: 01/11/16 Status: Discontinued magnesium sulfate 2 gm, 50 mL, Route: IVPB, Drug form: INJ, PRN, Dosing Weight 104.545, kg, PRN Ab normal Lab Result, Start date: 01/10/16 2:34:00 CDT, Duration: 30 day, Stop date : 02/09/16 2:33:00 CDT, FOR ICU USE ONLY Notes: WASTE: F/P - Sink; E - Municipal Trash Bin Start Date: 01/10/16 Stop Date: 01/11/16 Status: Discontinued metFORMIN 1000 mg oral tablet 1,000 mg, 1 tab, Route: PO, Drug form: TAB, BID, Dosing Weight 104.545, kg, Star t date: 01/10/16 9:00:00 CDT, Duration: 30 day, Stop date: 02/08/16 17:00:00 CDT Notes: Same as Glucophage Start Date: 01/10/16 Stop Date: 01/11/16 Status: Discontinued metFORMIN 1000 mg oral tablet 1,000 mg=1 tab, PO, BID-Meals, # 30 tab, 0 Refill(s) Start Date: 01/10/16 Status: Ordered metoprolol 50 mg oral tablet, extended release 50 mg=1 tab, PO, Daily, # 30 tab, 0 Refill(s) Start Date: 01/10/16 Status: Ordered metoprolol extended release 50 mg, 1 tab, Route: PO, Drug form: ERTAB, QPM, Start date: 01/10/16 17:00:00 CD T, Duration: 30 day, Stop date: 02/08/16 17:00:00 CDT Notes: (Same as: Toprol XL) May split tab, but do not crush. Start Date: 01/10/16 Stop Date: 01/11/16 Status: Discontinued Neurontin 300 mg oral capsule 600 mg, 2 cap, Route: PO, Drug form: CAP, BID, Dosing Weight 104.545, kg, Start date: 01/10/16 9:00:00 CDT, Duration: 30 day, Stop date: 02/08/16 17:00:00 CDT Notes: (Same as: Neurontin) Start Date: 01/10/16 Stop Date: 01/11/16 Status: Discontinued Neutra-Phos 2 pkt, Route: PO, Drug Form: PDR/REC, Dosing Weight 104.545, kg, PRN, PRN Abnorm al Lab Result, FOR ICU USE ONLY, Start date: 01/10/16 2:34:00 CDT, Duration: 30 day, Stop date: 02/09/16 2:33:00 CDT Notes: (Same as: Neutra-Phos) Each 1.25 gm pkt has 250mg phosphorous. Mix w/2.5 oz water and stir. Start Date: 01/10/16 Stop Date: 01/11/16 Status: Discontinued nitroglycerin 0.4 mg, 1 tab, Route: SL, Drug form: TAB, Q5Min, Dosing Weight 104.545, kg, PRN Chest Pain, Priority: STAT, Start date: 01/09/16 23:15:00 CDT, Duration: 3 doses or times, Stop date: 01/11/16 0:00:00 CDT Notes: (Same as:Nitroquick, Nitrostat)"Do Not Crush" Sublingual tablet Start Date: 01/09/16 Stop Date: 01/11/16 Status: Completed nitroglycerin SL Tab 0.4 mg, 1 tab, Route: SL, Drug form: TAB, Q5Min, Dosing Weight 104.545, kg, PRN Chest Pain, Start date: 01/10/16 1:26:00 CDT, Duration: 3 doses or times, Stop d ate: Limited # of times Notes: (Same as:Nitroquick, Nitrostat)"Do Not Crush" Sublingual tablet Start Date: 01/10/16 Stop Date: 01/11/16 Status: Discontinued Nitrostat 0.4 mg sublingual tablet 0.4 mg=1 tab, SL, Q5Min, PRN Chest Pain, # 100 tab, 0 Refill(s) Start Date: 01/10/16 Status: Ordered NovoLIN 70/30 45 unit, 0.45 mL, Route: SUB-Q, Drug form: INJ, Before Dinner, Dosing Weight 104 .545, kg, Start date: 01/10/16 16:30:00 CDT, Duration: 30 day, Stop date: 16:30:00 CDT Notes: Roll in palms of hands gently; Do not shake. (Same as: NovoLIN Mix 70/30) Do not hold insulin without contacting prescriberWASTE: F/P - Black; E - Municip al Trash Bin Start Date: 01/10/16 Stop Date: 01/11/16 Status: Discontinued NovoLIN 70/30 65 unit, 0.65 mL, Route: SUB-Q, Drug form: INJ, Before Breakfast, Dosing Weight 104.545, kg, Start date: 01/10/16 7:30:00 CDT, Duration: 30 day, Stop date: 01/21 05/08 7:30:00 CDT Notes: Roll in palms of hands gently; Do not shake. (Same as: NovoLIN Mix 70/30) Do not hold insulin without contacting prescriberWASTE: F/P - Black; E - Municip al Trash Bin Start Date: 01/10/16 Stop Date: 01/11/16 Status: Discontinued ondansetron 4 mg, 1 tab, Route: PO, Drug form: TAB, Q8H, Dosing Weight 104.545, kg, PRN Naus ea & Vomiting, Start date: 01/10/16 1:26:00 CDT, Duration: 30 day, Stop date: 02/09/16 1:25:00 CDT Notes: (Same as: Zofran) Start Date: 01/10/16 Stop Date: 01/11/16 Status: Discontinued pantoprazole 40 mg, Route: IVP, Drug form: INJ, Daily, Dosing Weight 104.545, kg, Start date: 01/10/16 9:00:00 CDT, Duration: 30 day, Stop date: 02/08/16 9:00:00 CDT Notes: (Same as: Protonix) Start Date: 01/10/16 Stop Date: 01/11/16 Status: Discontinued potassium chloride 20 mEq, 1 tab, Route: PO, Drug form: ERTAB, PRN, Dosing Weight 104.545, kg, PRN Abnormal Lab Result, Start date: 01/10/16 2:34:00 CDT, Duration: 30 day, Stop da te: 02/09/16 2:33:00 CDT, FOR ICU USE ONLY Notes: (Same as: K-Dur 20)"Do Not Crush" With food and full glass of water Start Date: 01/10/16 Stop Date: 01/11/16 Status: Discontinued potassium chloride 20 mEq, 15 mL, Route: NJ, Drug form: LIQ, PRN, Dosing Weight 104.545, kg, PRN Ab normal Lab Result, Start date: 01/10/16 2:34:00 CDT, Duration: 30 day, Stop date : 02/09/16 2:33:00 CDT, FOR ICU USE ONLY Notes: (Same as: Potassium Chloride) Start Date: 01/10/16 Stop Date: 01/11/16 Status: Discontinued potassium chloride 20 mEq, 100 mL, Route: IVPB, Drug form: INJ, PRN, Dosing Weight 104.545, kg, PRN Abnormal Lab Result, Via central line, Start date: 01/10/16 2:34:00 CDT, Durati on: 30 day, Stop date: 02/09/16 2:33:00 CDT, FOR ICU USE ONLY Notes: (Same as: KCL) Infuse no faster than 10 mEq/hr if given peripherally. Start Date: 01/10/16 Stop Date: 01/11/16 Status: Discontinued potassium chloride 10 mEq, 50 mL, Route: IVPB, Drug form: INJ, PRN, Dosing Weight 104.545, kg, PRN Abnormal Lab Result, Via peripheral line, Start date: 01/10/16 2:34:00 CDT, Dura tion: 30 day, Stop date: 02/09/16 2:33:00 CDT, FOR ICU USE ONLY Notes: (Same as: KCL) Infuse over 2 hours. Start Date: 01/10/16 Stop Date: 01/11/16 Status: Discontinued potassium phosphate + Sodium Chloride 0.9% IV 250 mL 15 mmol, 5 mL, Route: IVPB, Drug form: INJ, PRN, Dosing Weight 104.545, kg, PRN Abnormal Lab Result, Start date: 01/10/16 2:34:00 CDT, Duration: 30 day, Stop da te: 02/09/16 2:33:00 CDT, FOR ICU USE ONLY Notes: (Same as: K Phosphate.) 1 mMol phoshate has 1.47 mEq potassium Infuse o yaa 4 hours Start Date: 01/10/16 Stop Date: 01/11/16 Status: Discontinued potassium phosphate + Sodium Chloride 0.9% IV 250 mL 30 mmol, 10 mL, Route: IVPB, Drug form: INJ, PRN, Dosing Weight 104.545, kg, PRN Abnormal Lab Result, Start date: 01/10/16 2:34:00 CDT, Duration: 30 day, Stop d ate: 02/09/16 2:33:00 CDT, FOR ICU USE ONLY Notes: (Same as: K Phosphate.) 1 mMol phoshate has 1.47 mEq potassium Infuse o yaa 4 hours Start Date: 01/10/16 Stop Date: 01/11/16 Status: Discontinued potassium phosphate + Sodium Chloride 0.9% IV 250 mL 45 mmol, 15 mL, Route: IVPB, Drug form: INJ, PRN, Dosing Weight 104.545, kg, PRN Abnormal Lab Result, Start date: 01/10/16 2:34:00 CDT, Duration: 30 day, Stop d ate: 02/09/16 2:33:00 CDT, FOR ICU USE ONLY Notes: (Same as: K Phosphate.) 1 mMol phoshate has 1.47 mEq potassium Infuse o yaa 4 hours Start Date: 01/10/16 Stop Date: 01/11/16 Status: Discontinued Saline Flush 0.9% 10 mL, Route: IVP, Drug Form: INJ, Dosing Weight 104.545, kg, PRN, PRN Line Flus h, Start date: 01/09/16 23:13:00 CDT, Duration: 30 day, Stop date: 02/08/16 23:1 2:00 CDT Notes: Same as: BD Posiflush Sterile Start Date: 01/09/16 Stop Date: 01/11/16 Status: Discontinued sodium phosphate + Sodium Chloride 0.9% IV 250 mL 30 mmol, 10 mL, Route: IVPB, Drug form: INJ, PRN, Dosing Weight 104.545, kg, PRN Abnormal Lab Result, Start date: 01/10/16 2:34:00 CDT, Duration: 30 day, Stop d ate: 02/09/16 2:33:00 CDT, FOR ICU USE ONLY Start Date: 01/10/16 Stop Date: 01/11/16 Status: Discontinued sodium phosphate + Sodium Chloride 0.9% IV 250 mL 45 mmol, 15 mL, Route: IVPB, Drug form: INJ, PRN, Dosing Weight 104.545, kg, PRN Abnormal Lab Result, Start date: 01/10/16 2:34:00 CDT, Duration: 30 day, Stop d ate: 02/09/16 2:33:00 CDT, FOR ICU USE ONLY Start Date: 01/10/16 Stop Date: 01/11/16 Status: Discontinued sodium phosphate + Sodium Chloride 0.9% IV 250 mL 15 mmol, 5 mL, Route: IVPB, Drug form: INJ, PRN, Dosing Weight 104.545, kg, PRN Abnormal Lab Result, Start date: 01/10/16 2:34:00 CDT, Duration: 30 day, Stop da te: 02/09/16 2:33:00 CDT, FOR ICU USE ONLY Start Date: 01/10/16 Stop Date: 01/11/16 Status: Discontinued Results ELECTROLYTES 1 2 3 Most recent to oldest [Reference Range]: 143 mEq/L (01/11/16 4:42 AM) 142 mEq/L (01/10/16 3:58 AM) 141 mEq/L (01/09/16 11:17 PM) Sodium Lvl [135-145 mEq/L] 4.0 mEq/L (01/11/16 4:42 AM) 4.2 mEq/L (01/10/16 3:58 AM) 4.4 mEq/L (01/09/16 11:17 PM) Potassium Lvl [3.5-5.1 mEq/L] 108 mEq/L (01/11/16 4:42 AM) 108 mEq/L (01/10/16 3:58 AM) 103 mEq/L (01/09/16 11:17 PM) Chloride Lvl [95-109 mEq/L] 24 mEq/L (01/11/16 4:42 AM) 24 mEq/L (01/10/16 3:58 AM) 26 mEq/L (01/09/16 11:17 PM) CO2 [24-32 mEq/L] 15.0 mEq/L (01/11/16 4:42 AM) 14.2 mEq/L (01/10/16 3:58 AM) 16.4 mEq/L (01/09/16 11:17 PM) AGAP [10.0-20.0 mEq/L] CHEM PANEL 1 2 3 Most recent to oldest [Reference Range]: 0.80 mg/dL (01/11/16 4:42 AM) 0.98 mg/dL (01/10/16 3:58 AM) 1.19 mg/dL (01/09/16 11:17 PM) Creatinine Lvl [0.50-1.40 mg/dL] 91 mL/min/1.73m2 1 *NA* (01/11/16 4:42 AM) 78 mL/min/1.73m2 2 *NA* (01/10/16 3:58 AM) 62 mL/min/1.73m2 3 *NA* (01/09/16 11:17 PM) eGFR 23 mg/dL *HI* (01/11/16 4:42 AM) 32 mg/dL *HI* (01/10/16 3:58 AM) 36 mg/dL *HI* (01/09/16 11:17 PM) BUN [7-22 mg/dL] 30 *HI* (01/09/16 11:17 PM) B/C Ratio [6-25] 72 mg/dL (01/11/16 4:42 AM) 88 mg/dL (01/10/16 3:58 AM) 91 mg/dL (01/09/16 11:17 PM) Glucose Lvl [70-99 mg/dL] 6.4 g/dL (01/10/16 3:57 AM) 7.7 g/dL (01/09/16 11:17 PM) Total Protein [6.4-8.4 g/dL] 3.4 g/dL *LOW* (01/10/16 3:57 AM) 3.9 g/dL (01/09/16 11:17 PM) Albumin Lvl [3.5-5.0 g/dL] 3.0 g/dL (01/10/16 3:57 AM) 3.8 g/dL (01/09/16 11:17 PM) Globulin [2.0-4.0 g/dL] 1.1 (01/10/16 3:57 AM) 1.0 (01/09/16 11:17 PM) A/G Ratio [0.7-1.6] 8.7 mg/dL (01/11/16 4:42 AM) 8.6 mg/dL (01/10/16 3:58 AM) 8.9 mg/dL (01/09/16 11:17 PM) Calcium Lvl [8.5-10.5 mg/dL] 3.6 mg/dL (01/11/16 4:42 AM) 4.2 mg/dL (01/10/16 3:58 AM) Phosphorus [2.5-4.5 mg/dL] 1.9 mg/dL (01/11/16 4:42 AM) 1.7 mg/dL *LOW* (01/10/16 3:58 AM) Magnesium Lvl [1.8-2.4 mg/dL] 25 unit/L (01/10/16 3:57 AM) 29 unit/L (01/09/16 11:17 PM) ALT [0-65 unit/L] 17 unit/L (01/10/16 3:57 AM) 19 unit/L (01/09/16 11:17 PM) AST [0-37 unit/L] 62 unit/L (01/10/16 3:57 AM) 80 unit/L (01/09/16 11:17 PM) Alk Phos [39-136 unit/L] 0.2 mg/dL (01/10/16 3:58 AM) 0.3 mg/dL (01/09/16 11:17 PM) Bili Total [0.2-1.3 mg/dL] 0.1 mg/dL (01/10/16 3:58 AM) Bili Direct [0.0-0.3 mg/dL] 0.1 mg/dL (01/10/16 3:58 AM) Bili Indirect [0.0-1.0 mg/dL] 1Result Comment: The eGFR is calculated [...] 3 Most recent to oldest [Reference Range]: 243 unit/L *HI* (01/10/16 3:57 AM) 303 unit/L *HI* (01/09/16 11:17 PM) Total CK [12-191 unit/L] 1.1 ng/mL (01/10/16 3:57 AM) 1.0 ng/mL (01/09/16 11:17 PM) CK MB [0.5-3.6 ng/mL] 0.5 (01/10/16 3:57 AM) 0.3 (01/09/16 11:17 PM) CK MB Index [0.0-2.5] <0.02 ng/mL (01/10/16 3:57 AM) <0.02 ng/mL (01/09/16 11:17 PM) Troponin-I [0.00-0.40 ng/mL] 10 pg/mL (01/10/16 3:58 AM) BNP [<=100 pg/mL] LIPIDS 1 2 3 Most recent to oldest [Reference Range]: 3.32 *LOW* (01/10/16 3:58 AM) CHD Risk [4.00-7.30] 126 mg/dL (01/10/16 3:58 AM) Chol [<=199 mg/dL] 107 mg/dL (01/10/16 3:58 AM) Trig [<=149 mg/dL] 38 mg/dL *LOW* (01/10/16 3:58 AM) HDL [>=61 mg/dL] 67 mg/dL (01/10/16 3:58 AM) LDL (Calculated) [<=99 mg/dL] 21 *NA* (01/10/16 3:58 AM) VLDL SPECIAL CHEMISTRY 1 2 3 Most recent to oldest [Reference Range]: 7.2 % *HI* (01/10/16 3:58 AM) Hgb A1C [<=5.6 %] DRUG SCREEN 1 2 3 Most recent to oldest [Reference Range]: Negative *NA* (01/10/16 10:01 AM) U Methadone Scr [Negative] Negative *NA* (01/10/16 10:01 AM) U Propoxyph Scr [Negative] Negative *NA* (01/10/16 10:01 AM) U Amph Scr [Negative] Negative *NA* (01/10/16 10:01 AM) U Kristin Scr [Negative] Negative *NA* (01/10/16 10:01 AM) U Benzodia Scr [Negative] Negative *NA* (01/10/16 10:01 AM) U Cocaine Scr [Negative] Negative *NA* (01/10/16 10:01 AM) U Opiate Scr [Negative] Negative *NA* (01/10/16 10:01 AM) U Phencyc Scr [Negative] Negative *NA* (01/10/16 10:01 AM) U Cannab Scr [Negative] See Note *NA* (01/10/16 10:01 AM) UDS Note URINE AND STOOL 1 2 3 Most recent to oldest [Reference Range]: Clear (01/10/16 5:27 AM) UA Turbidity [Clear] Yellow *NA* (01/10/16 5:27 AM) UA Color [Yellow] 5.5 (01/10/16 5:27 AM) UA pH [5.0-8.0] 1.015 (01/10/16 5:27 AM) UA Spec Grav [<=1.030] Negative mg/dL (01/10/16 5:27 AM) UA Glucose [Negative mg/dL] Negative (01/10/16 5:27 AM) UA Blood [Negative] Negative mg/dL *NA* (01/10/16 5:27 AM) UA Ketones [Negative mg/dL] Negative mg/dL (01/10/16 5:27 AM) UA Protein [Negative mg/dL] 0.2 EU/dL (01/10/16 5:27 AM) UA Urobilinogen [0.1-1.0 EU/dL] Negative *NA* (01/10/16 5:27 AM) UA Bili [Negative] Negative (01/10/16 5:27 AM) UA Leuk Est [Negative] Negative (01/10/16 5:27 AM) UA Nitrite [Negative] None Seen (01/10/16 5:27 AM) UA WBC [None Seen] None Seen (01/10/16 5:27 AM) UA RBC [0-2] None Seen (01/10/16 5:27 AM) UA Sq Epi [Few] Performed (01/10/16 5:27 AM) Micro? HEMATOLOGY 1 2 3 Most recent to oldest [Reference Range]: 7.4 K/CMM (01/11/16 4:42 AM) 9.0 K/CMM (01/09/16 11:17 PM) WBC [3.7-10.4 K/CMM] 4.10 M/CMM *LOW* (01/11/16 4:42 AM) 4.21 M/CMM *LOW* (01/09/16 11:17 PM) RBC [4.70-6.10 M/CMM] 12.4 g/dL *LOW* (01/11/16 4:42 AM) 11.2 g/dL *LOW* (01/10/16 3:58 AM) 12.8 g/dL *LOW* (01/09/16 11:17 PM) Hgb [14.0-18.0 g/dL] 37.2 % *LOW* (01/11/16 4:42 AM) 38.9 % *LOW* (01/09/16 11:17 PM) Hct [42.0-54.0 %] 90.8 fL (01/11/16 4:42 AM) 92.4 fL (01/09/16 11:17 PM) MCV [80.0-94.0 fL] 30.2 pg (01/11/16 4:42 AM) 30.5 pg (01/09/16 11:17 PM) MCH [27.0-31.0 pg] 33.3 g/dL (01/11/16 4:42 AM) 32.9 g/dL (01/09/16 11:17 PM) MCHC [32.0-36.0 g/dL] 12.8 % (01/11/16 4:42 AM) 13.2 % (01/09/16 11:17 PM) RDW [11.5-14.5 %] 153 K/CMM (01/11/16 4:42 AM) 182 K/CMM (01/09/16 11:17 PM) Platelet [133-450 K/CMM] 10.2 fL (01/11/16 4:42 AM) 10.2 fL (01/09/16 11:17 PM) MPV [7.4-10.4 fL] 59.7 % (01/11/16 4:42 AM) 59.5 % (01/09/16 11:17 PM) Segs [45.0-75.0 %] 27.5 % (01/11/16 4:42 AM) 28.4 % (01/09/16 11:17 PM) Lymphocytes [20.0-40.0 %] 7.6 % (01/11/16 4:42 AM) 7.5 % (01/09/16 11:17 PM) Monocytes [2.0-12.0 %] 4.5 % *HI* (01/11/16 4:42 AM) 2.9 % (01/09/16 11:17 PM) Eosinophils [0.0-4.0 %] 0.7 % (01/11/16 4:42 AM) 1.7 % *HI* (01/09/16 11:17 PM) Basophils [0.0-1.0 %] 4.4 K/CMM (01/11/16 4:42 AM) 5.4 K/CMM (01/09/16 11:17 PM) Segs-Bands # [1.5-8.1 K/CMM] 2.0 K/CMM (01/11/16 4:42 AM) 2.6 K/CMM (01/09/16 11:17 PM) Lymphocytes # [1.0-5.5 K/CMM] 0.6 K/CMM (01/11/16 4:42 AM) 0.7 K/CMM (01/09/16 11:17 PM) Monocytes # [0.0-0.8 K/CMM] 0.3 K/CMM (01/11/16 4:42 AM) 0.3 K/CMM (01/09/16 11:17 PM) Eosinophils # [0.0-0.5 K/CMM] 0.1 K/CMM (01/11/16 4:42 AM) 0.2 K/CMM (01/09/16 11:17 PM) Basophils # [0.0-0.2 K/CMM] 13.0 seconds (01/10/16 3:57 AM) PT [12.0-14.7 seconds] 0.95 (01/10/16 3:57 AM) INR [0.85-1.17] 35.9 seconds *HI* (01/10/16 3:57 AM) PTT [22.9-35.8 seconds] Immunizations No data available for this section Procedures Procedure Date Related Diagnosis Body Site CABG x 3 - Coronary artery bypass grafts x 3 Stent placement Social History Social History Type Response Substance [...] condition. Exercise type: Walking. 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 Activity level: Occasional physical work. Operates hazardous equipment: No. Alcohol Past Smoking Status Never smoker; Exposure to Tobacco Smoke None; Cigarette Smoking Last 365 Days No; Reg Smoking Cessation Counseling No Assessment and Plan Extracted from: Title: [facility] Discharge Summary Author: Yamileth Mendoza Date: 01/11/16 Louise BLAKE Discharge Summary Name: Minna Gruber Record Number: [id number] Admission Date: 01/10/2016 Discharge Date: 01/11/2016 Admit [...] of HTN, HLD, IDDMT2, CAD s/p CABGx2 & DESx6, and diastolic CHF w/ last LVEF [...] a heart cath 2 months ago @ [facility] however no stents were placed. Pt saw his cardiology ([facility] satellite tv technician installer: Dr. Sha Cortez) 2 days prior and [...] and hemodynamically stable. De will call his Material Requirements Planning Manager to reschedule his appointment and will follow up with him outpatient. Patient understands and agrees to plan. Discharge condition: stable Recent signficant physical findings: Vital Signs (last 24 hrs) Last Charted Temp Oral97.2 DegF (JAN 10 12:00) Heart Rate Rnrytw62 bpm (JAN 10:00) Resp Rate 16 BRMIN (JAN 10 09:52) SBPH 154mmHg (JAN 10:00) DBP69 mmHg (JAN 10 09:00) LiM046 % (JAN 10 12:00) Vdmcxl88.892 kg (JAN 09 23:05) Qvozfh878.64 cm (JAN 09:05) BMI35.19 (JAN 09:05) Physical Exam General: NAD, comfortable HEENT: PERRL, EOMI Cardiovascular: RRR, no m/r/g Respiratory: CTAB, no increased effort Abdomen: +BS, soft Extremities: no cyanosis or edema Integumentary: no skin lesions or wounds Neurologic: A&Ox4, CN2/12 intact, cerebral palsy Recent significant lab & radiology results: none Discharge therapy: Medications: Reconciled Diet: Diabetic Activity: As tolerated Follow up: Material Requirements Planning Manager Dr. Cortez and PCP Yamileth Major MD Medicine PGY1 I saw and examined patient with the resident, Dr. Major. Agree with management and plans for discharge as we discussed. Extracted from: Title: [facility] History & Physical Author: Nereida Henao MD Date: 01/10/16 Impression and Plan Pt is a 70 yo male w/ pmh of HTN, HLD, IDDMT2, CAD s/p CABGx2 & DESx6, and diastolic CHF w/ last LVEF of 55-60% who presented to the ED w/ right sided chest pain described as a "muscle cramp" onset yesterday w/ negative trop x 1, unremarkable cxr, and stable vitals in the ED admitted for ACS rule out. Problem List: - unstable angina - CAD s/p CABGx2 & DESx6 - Diastolic HF - HTN - HLD - IDDMT2 - Diabetic neuropathy #Unstable angina - Cardiac monitoring & Telemtetr - Trop x 1 negative - Will continue to trend cardiac enzymes - ASA 324mg given in ED - NTG PRN ordered. Pt currently chest pain free. - NPO for possible cath today #CAD s/p CABG & [place] - Continue atorvastatin 40mg, ASA 81mg, [...]
--- OUTSIDE RECORDS SUMMARY | 2019-04-17 10:36 | XMS REPORT | Summary of Care ---
Author Author [facility] Organization [facility] Address Unknown Phone Unavailable Encounter ARLENE Mohan(MIKE) [id number] Date(s): 06/26/16 - 06/26/16 [facility] [address], [place] [address] [phone] Discharge Disposition: Home or Self Care Attending Physician: Sha Galeano MD Referring Physician: Sha Galeano MD Vital Signs Most recent to 1 oldest [Reference Range]: Height 167.64 cm (06/26/16 11:26 AM) Weight 101.364 kg (06/26/16 11:26 AM) Body Mass Index 36.07 m2 (06/26/16 11:26 AM) Problem List Condition Effective Dates Status Health Status Informant [D]Chest Active pain(Confirmed) Arthritis(Confirmed) Active CAD - Coronary Active artery disease(Confirmed) Cerebral Active palsy(Confirmed) Chronic Active pain(Confirmed) Diabetes Active mellitus(Confirmed) [place] - Hard of Active hearing(Confirmed) Hypertension(Confirm Active ed) Incontinence of Active urine(Confirmed) Neuropathy(Confirmed Active ) Secondary, 12/01/08 Active uncontrolled diabetes mellitus without mention of complication(Confirm ed) Swelling of ankle Active joint(Confirmed)1 1Occasional swelling around both ankles Allergies, Adverse Reactions, Alerts Substance Reaction Severity Status NKDA Active Medications No data available for this section Results No data available for this section Immunizations No data available for this section [...] Fair condition. Exercise type: Walking. 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 Activity level: Occasional physical work. Operates hazardous equipment: No. Alcohol Past Smoking Status Never smoker; Exposure to Tobacco Smoke None; Cigarette Smoking Last 365 Days No; Reg Smoking Cessation Counseling No Assessment and Plan No data available for this section
--- OUTSIDE RECORDS SUMMARY | 2019-04-17 10:36 | XMS REPORT | Summary of Care ---
Author Author [facility] Organization [facility] Address Unknown Phone Unavailable Encounter ARLENE Mohan(MIKE) [id number] Date(s): 11/10/15 - 11/11/15 [facility] [address] [place] [address]- Discharge Disposition: Against Medical Advise Attending Physician: Rosa M Bell MD Admitting Physician: Rosa M Bell MD Vital Signs 1 2 3 Most recent to oldest [Reference Range]: 167.64 cm (11/10/15 3:15 PM) Height 98 DegF (11/10/15 7:09 PM) 97.7 DegF (11/10/15 3:15 PM) Temperature Oral [96.4-99.1 DegF] 151/68 mmHg *HI* (11/11/15 2:37 AM) 165/74 mmHg *HI* (11/11/15 1:38 AM) 144/74 mmHg *HI* (11/11/15 12:33 AM) Blood Pressure [90-140/60-90 mmHg] 19 BRMIN (11/11/15 2:37 AM) 17 BRMIN (11/11/15 1:56 AM) 23 BRMIN *HI* (11/11/15 1:38 AM) Respiratory Rate [14-20 BRMIN] 116 bpm *HI* (11/10/15 3:15 PM) Peripheral Pulse Rate [60-100 bpm] 104.545 kg (11/10/15 3:15 PM) Weight 37.2 m2 (11/10/15 3:15 PM) Body Mass Index Problem List Condition Effective Dates Status Health Status Informant [D]Chest Active pain(Confirmed) Arthritis(Confirmed) Active CAD - Coronary Active artery disease(Confirmed) Cerebral Active palsy(Confirmed) Chronic Active pain(Confirmed) Diabetes Active mellitus(Confirmed) [place] - Hard of Active hearing(Confirmed) Hypertension(Confirm Active ed) Incontinence of Active urine(Confirmed) Neuropathy(Confirmed Active ) Secondary, 12/01/08 Active uncontrolled diabetes mellitus without mention of complication(Confirm ed) Swelling of ankle Active joint(Confirmed)1 1Occasional swelling around both ankles Allergies, Adverse Reactions, Alerts Substance Reaction Severity Status NKDA Active Medications Ambien 5 mg, 1 tab, Route: PO, Drug form: TAB, Bedtime, Dosing Weight 104.545, kg, PRN Insomnia, Start date: 11/11/15 1:17:00, Duration: 30 day, Stop date: 12/11/15 1: 16:00 Notes: (Same As: Ambien) Start Date: 11/11/15 Stop Date: 11/12/15 Status: Discontinued aspirin 243 mg, 3 tab, Route: CHEW, Drug form: CHEWTAB, ONCE, Dosing Weight 104.545, kg, Priority: STAT, Start date: 11/10/15 19:38:00, Stop date: 11/10/15 19:38:00 Notes: Take with food. Start Date: 11/10/15 Stop Date: 11/10/15 Status: Completed aspirin 325 mg tablet 325 mg, 1 tab, Route: PO, Drug form: TAB, Daily, Dosing Weight 104.545, kg, Star t date: 11/11/15 9:00:00, Duration: 30 day, Stop date: 12/10/15 9:00:00 Notes: Take with food. Start Date: 11/11/15 Stop Date: 11/12/15 Status: Discontinued aspirin 81 mg tablet, enteric coated 81 mg=1 tab, PO, Daily, 3 Refill(s) Start Date: 11/10/15 Status: Ordered clopidogrel 75 mg, 1 tab, Route: PO, Drug form: TAB, Daily, Dosing Weight 104.545, kg, Start date: 11/11/15 9:00:00, Duration: 30 day, Stop date: 12/10/15 9:00:00 Notes: (Same As: Plavix) Start Date: 11/11/15 Stop Date: 11/12/15 Status: Discontinued Dextrose 50% Syringe 12.5 gm, 25 mL, Route: IVP, Drug Form: INJ, Dosing Weight 104.545, kg, PRN, PRN Blood Glucose Results, Start date: 11/11/15 1:28:00, Duration: 30 day, Stop date : 12/11/15 2:27:00 Start Date: 11/11/15 Stop Date: 11/12/15 Status: Discontinued Dextrose 50% Syringe 25 gm, 50 mL, Route: IVP, Drug Form: INJ, Dosing Weight 104.545, kg, PRN, PRN Bl ood Glucose Results, Start date: 11/11/15 1:28:00, Duration: 30 day, Stop date: 12/11/15 2:27:00 Start Date: 11/11/15 Stop Date: 11/12/15 Status: Discontinued glucagon 1 mg, Route: IM, Drug form: PDR/INJ, PRN, Dosing Weight 104.545, kg, PRN Blood G lucose Results, Start date: 11/11/15 1:28:00, Duration: 30 day, Stop date: 12/10 2:27:00 Start Date: 11/11/15 Stop Date: 11/12/15 Status: Discontinued Heparin - one time bolus for ACS 4,000 unit, 4 mL, Route: IV, Drug form: INJ, ONCE, Dosing Weight 104.545, kg, Pr iority: STAT, Start date: 11/10/15 22:05:00, Stop date: 11/10/15 22:05:00 Start Date: 11/10/15 Stop Date: 11/11/15 Status: Completed Heparin 30 unit/kg Bolus (Heparin Dosing Weight) Route: IVP, PRN, 2,400 unit, 2.4 mL, Drug form: INJ, PRN, Heparin Protocol, Star t date: 11/11/15 1:25:00 Stop date: 12/11/15 2:24:00, 30 day Start Date: 11/11/15 Stop Date: 11/12/15 Status: Discontinued Heparin 30 unit/kg Bolus (Heparin Dosing Weight) Route: IVP, PRN, 2,400 unit, 2.4 mL, Drug form: INJ, PRN, Heparin Protocol, Star t date: 11/10/15 22:05:00 Stop date: 12/10/15 23:04:00, 30 day Start Date: 11/10/15 Stop Date: 11/11/15 Status: Discontinued Heparin 60 unit/kg Bolus (Heparin Dosing Weight) Route: IVP, PRN, 4,800 unit, 4.8 mL, Drug form: INJ, PRN, Heparin Protocol, Star t date: 11/11/15 1:25:00 Stop date: 12/11/15 2:24:00, 30 day Start Date: 11/11/15 Stop Date: 11/12/15 Status: Discontinued Heparin 60 unit/kg Bolus (Heparin Dosing Weight) Route: IVP, PRN, 4,800 unit, 4.8 mL, Drug form: INJ, PRN, Heparin Protocol, Star t date: 11/10/15 22:05:00 Stop date: 12/10/15 23:04:00, 30 day Start Date: 11/10/15 Stop Date: 11/11/15 Status: Discontinued heparin additive 25,000 unit [12 unit/kg/hr] + Premix Diluent Dextrose 5% 500 mL 500 mL, Rate: 19.22 ml/hr, Infuse over: 26 hr, Route: IV, Dosing Weight 80.1 kg, Total Volume: 500 mL, Start date: 11/11/15 1:25:00, Duration: 30 day, Stop date: 12/11/15 1:24:00 Start Date: 11/11/15 Stop Date: 11/12/15 Status: Discontinued heparin additive 25,000 unit [12 unit/kg/hr] + Premix Diluent Dextrose 5% 500 mL 500 mL, Rate: 19.22 ml/hr, Infuse over: 26 hr, Route: IV, Dosing Weight 80.1 kg, Total Volume: 500 mL, Start date: 11/10/15 22:05:00, Duration: 30 day, Stop merlene e: 12/10/15 22:04:00 Start Date: 11/10/15 Stop Date: 11/11/15 Status: Discontinued insulin aspart 8 unit, 0.08 mL, Route: SUB-Q, Drug form: SOLN, Sliding Scale, Dosing Weight 104 .545, kg, PRN Blood Glucose Results, Start date: 11/11/15 1:28:00, Duration: 30 day, Stop date: 12/11/15 2:27:00 Notes: Roll in palms of hands gently; Do not shake vigorously. (Same as: Jolanta Zaidi)"single patient use only"WASTE: F/P - Black; E - Municipal Trash Bin Stable f or 28 days at room temperature.Expires in days from Date Start Date: 11/11/15 Stop Date: 11/12/15 Status: Discontinued insulin aspart 6 unit, 0.06 mL, Route: SUB-Q, Drug form: SOLN, Sliding Scale, Dosing Weight 104 .545, kg, PRN Blood Glucose Results, Start date: 11/11/15 1:28:00, Duration: 30 day, Stop date: 12/11/15 2:27:00 Notes: Roll in palms of hands gently; Do not shake vigorously. (Same as: Jolanta Zaidi)"single patient use only"WASTE: F/P - Black; E - Municipal Trash Bin Stable f or 28 days at room temperature.Expires in days from Date Start Date: 11/11/15 Stop Date: 11/12/15 Status: Discontinued insulin aspart 4 unit, 0.04 mL, Route: SUB-Q, Drug form: SOLN, Sliding Scale, Dosing Weight 104 .545, kg, PRN Blood Glucose Results, Start date: 11/11/15 1:28:00, Duration: 30 day, Stop date: 12/11/15 2:27:00 Notes: Roll in palms of hands gently; Do not shake vigorously. (Same as: Jolanta Zaidi)"single patient use only"WASTE: F/P - Black; E - Municipal Trash Bin Stable f or 28 days at room temperature.Expires in days from Date Start Date: 11/11/15 Stop Date: 11/12/15 Status: Discontinued insulin aspart 10 unit, 0.1 mL, Route: SUB-Q, Drug form: SOLN, Sliding Scale, Dosing Weight 104 .545, kg, PRN Blood Glucose Results, Start date: 11/11/15 1:28:00, Duration: 30 day, Stop date: 12/11/15 2:27:00 Notes: Roll in palms of hands gently; Do not shake vigorously. (Same as: NovoMIKAEL G)"single patient use only"WASTE: F/P - Black; E - Municipal Trash Bin Stable f or 28 days at room temperature.Expires in days from Date Start Date: 11/11/15 Stop Date: 11/12/15 Status: Discontinued insulin aspart 2 unit, 0.02 mL, Route: SUB-Q, Drug form: SOLN, Sliding Scale, Dosing Weight 104 .545, kg, PRN Blood Glucose Results, Start date: 11/11/15 1:28:00, Duration: 30 day, Stop date: 12/11/15 2:27:00 Notes: Roll in palms of hands gently; Do not shake vigorously. (Same as: NovoMIKAEL G)"single patient use only"WASTE: F/P - Black; E - Municipal Trash Bin Stable f or 28 days at room temperature.Expires in days from Date Start Date: 11/11/15 Stop Date: 11/12/15 Status: Discontinued metoprolol extended release 25 mg, 1 tab, Route: PO, Drug form: ERTAB, Daily, Start date: 11/11/15 9:00:00, Duration: 30 day, Stop date: 12/10/15 9:00:00 Notes: (Same as: Toprol XL) Do Not Crush Start Date: 11/11/15 Stop Date: 11/12/15 Status: Discontinued metoprolol tartrate 25 mg, 1 tab, Route: PO, Drug form: TAB, ONCE, Dosing Weight 104.545, kg, Priori ty: STAT, Start date: 11/10/15 22:04:00, Stop date: 11/10/15 22:04:00 Notes: (Same as: Lopressor) Start Date: 11/10/15 Stop Date: 11/10/15 Status: Completed nitroglycerin 0.4 mg, 1 tab, Route: SL, Drug form: TAB, Q5Min, Dosing Weight 104.545, kg, PRN Chest Pain, Priority: STAT, Start date: 11/10/15 19:38:00, Duration: 3 doses or times, Stop date: Limited # of times Notes: (Same as:Nitroquick, Nitrostat)"Do Not Crush" Sublingual tablet Start Date: 11/10/15 Stop Date: 11/11/15 Status: Discontinued nitroglycerin 2% ointment 1 inch, Route: TOP, Drug Form: OINT, Dosing Weight 104.545, kg, TID, Start date: 11/11/15 6:00:00, Duration: 30 day, Stop date: 12/10/15 18:00:00 Notes: 1 gram is approximately 1 inch of nitroglycerin ointment (20 mg NTG pe r gram) (Same as:Nitro-Bid) Start Date: 11/11/15 Stop Date: 11/12/15 Status: Discontinued nitroglycerin 2% ointment 1 inch, Route: TOP, Drug Form: OINT, Dosing Weight 104.545, kg, ONCE, STAT, Star t date: 11/10/15 21:20:00, Stop date: 11/10/15 21:20:00 Notes: 1 gram is approximately 1 inch of nitroglycerin ointment (20 mg NTG pe r gram) (Same as:Nitro-Bid) Start Date: 11/10/15 Stop Date: 11/10/15 Status: Completed nitroglycerin SL Tab 0.4 mg, 1 tab, Route: SL, Drug form: TAB, Q5Min, Dosing Weight 104.545, kg, PRN Chest Pain, Start date: 11/11/15 1:25:00, Duration: 3 doses or times, Stop date: Limited # of times Notes: (Same as:Nitroquick, Nitrostat)"Do Not Crush" Sublingual tablet Start Date: 11/11/15 Stop Date: 11/12/15 Status: Discontinued NovoLIN 70/30 45 unit, SUB-Q, QPM, 0 Refill(s) Start Date: 11/10/15 Status: Ordered Saline Flush 0.9% 10 mL, Route: IVP, Drug Form: INJ, Dosing Weight 97.727, kg, PRN, PRN Line Flush , Start date: 11/10/15 15:17:00, Duration: 30 day, Stop date: 12/10/15 16:16:00 Notes: (Same as: BD Posiflush) Start Date: 11/10/15 Stop Date: 11/12/15 Status: Discontinued Sodium Chloride 0.9% IV 1,000 mL 1,000 mL, Rate: 75 ml/hr, Infuse over: 13.3 hr, Route: IV, Dosing Weight 104.545 kg, Total Volume: 1,000, Start date: 11/11/15 1:25:00, Duration: 12 hr, Stop da te: 11/11/15 13:24:00 Start Date: 11/11/15 Stop Date: 11/11/15 Status: Completed Results ELECTROLYTES 1 2 3 Most recent to oldest [Reference Range]: 140 mEq/L (11/10/15 3:28 PM) Sodium Lvl [135-145 mEq/L] 3.5 mEq/L (11/10/15 3:28 PM) Potassium Lvl [3.5-5.1 mEq/L] 105 mEq/L (11/10/15 3:28 PM) Chloride Lvl [95-109 mEq/L] 21 mEq/L *LOW* (11/10/15 3:28 PM) CO2 [24-32 mEq/L] 17.5 mEq/L (11/10/15 3:28 PM) AGAP [10.0-20.0 mEq/L] CHEM PANEL 1 2 3 Most recent to oldest [Reference Range]: 0.74 mg/dL (11/10/15 3:28 PM) Creatinine Lvl [0.50-1.40 mg/dL] 94 mL/min/1.73m2 1 *NA* (11/10/15 3:28 PM) eGFR 14 mg/dL (11/10/15 3:28 PM) BUN [7-22 mg/dL] 19 (11/10/15 3:28 PM) B/C Ratio [6-25] 83 mg/dL (11/10/15 3:28 PM) Glucose Lvl [70-99 mg/dL] 7.4 g/dL (11/10/15 3:28 PM) Total Protein [6.4-8.4 g/dL] 3.6 g/dL (11/10/15 3:28 PM) Albumin Lvl [3.5-5.0 g/dL] 3.8 g/dL (11/10/15 3:28 PM) Globulin [2.0-4.0 g/dL] 0.9 (11/10/15 3:28 PM) A/G Ratio [0.7-1.6] 8.9 mg/dL (11/10/15 3:28 PM) Calcium Lvl [8.5-10.5 mg/dL] 33 unit/L (11/10/15 3:28 PM) ALT [0-65 unit/L] 22 unit/L (11/10/15 3:28 PM) AST [0-37 unit/L] 85 unit/L (11/10/15 3:28 PM) Alk Phos [39-136 unit/L] 0.3 mg/dL (11/10/15 3:28 PM) Bili Total [0.2-1.3 mg/dL] 1Result Comment: The [...] 3 Most recent to oldest [Reference Range]: 304 unit/L *HI* (11/11/15 1:38 AM) 304 unit/L *HI* (11/11/15 1:38 AM) 356 unit/L *HI* (11/10/15 3:28 PM) Total CK [12-191 unit/L] 4.0 ng/mL *HI* (11/11/15 1:38 AM) 2.6 ng/mL (11/10/15 3:28 PM) CK MB [0.5-3.6 ng/mL] 1.3 (11/11/15 1:38 AM) 0.7 (11/10/15 3:28 PM) CK MB Index [0.0-2.5] 0.91 ng/mL 1 *CRIT* (11/11/15 1:38 AM) 0.52 ng/mL 2 *CRIT* (11/10/15 8:01 PM) 0.04 ng/mL (11/10/15 3:28 PM) Troponin-I [0.00-0.40 ng/mL] 1Result Comment: Critical Result(s) called to bebe hinojosa at 11/11/2015 02:09 by [email or web address]. Read back OK. 2Result Comment: Critical Result(s) called to kieran hinojosa at 11/10/2015 20:59 by gw. Read back OK. HEMATOLOGY 1 2 3 Most recent to oldest [Reference Range]: 11.5 K/CMM *HI* (11/10/15 3:28 PM) WBC [3.7-10.4 K/CMM] 4.39 M/CMM *LOW* (11/10/15 3:28 PM) RBC [4.70-6.10 M/CMM] 13.2 g/dL *LOW* (11/10/15 3:28 PM) Hgb [14.0-18.0 g/dL] 40.0 % *LOW* (11/10/15 3:28 PM) Hct [42.0-54.0 %] 91.3 fL (11/10/15 3:28 PM) MCV [80.0-94.0 fL] 30.2 pg (11/10/15 3:28 PM) MCH [27.0-31.0 pg] 33.1 g/dL (11/10/15 3:28 PM) MCHC [32.0-36.0 g/dL] 13.3 % (11/10/15 3:28 PM) RDW [11.5-14.5 %] 159 K/CMM (11/10/15 3:28 PM) Platelet [133-450 K/CMM] 10.4 fL (11/10/15 3:28 PM) MPV [7.4-10.4 fL] 83.9 % *HI* (11/10/15 3:28 PM) Segs [45.0-75.0 %] 8.2 % *LOW* (11/10/15 3:28 PM) Lymphocytes [20.0-40.0 %] 6.4 % (11/10/15 3:28 PM) Monocytes [2.0-12.0 %] 0.9 % (11/10/15 3:28 PM) Eosinophils [0.0-4.0 %] 0.6 % (11/10/15 3:28 PM) Basophils [0.0-1.0 %] 9.7 K/CMM *HI* (11/10/15 3:28 PM) Segs-Bands # [1.5-8.1 K/CMM] 1.0 K/CMM (11/10/15 3:28 PM) Lymphocytes # [1.0-5.5 K/CMM] 0.7 K/CMM (11/10/15 3:28 PM) Monocytes # [0.0-0.8 K/CMM] 0.1 K/CMM (11/10/15 3:28 PM) Eosinophils # [0.0-0.5 K/CMM] 0.1 K/CMM (11/10/15 3:28 PM) Basophils # [0.0-0.2 K/CMM] 13.2 seconds (11/10/15 10:28 PM) PT [12.0-14.7 seconds] 0.97 (11/10/15 10:28 PM) INR [0.85-1.17] 36.5 seconds *HI* (11/10/15 10:28 PM) PTT [22.9-35.8 seconds] Immunizations No data [...] Fair condition. Exercise type: Walking. 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 Activity level: Occasional physical work. Operates hazardous equipment: No. Alcohol Past Smoking Status Never smoker; Ready to change: No; Concerns about tobacco use in household: No; Exposure to Tobacco Smoke None; Cigarette Smoking Last 365 Days No; Reg Smoking Cessation Counseling No Assessment and Plan No data available for this section
--- OUTSIDE RECORDS SUMMARY | 2019-04-17 10:37 | XMS REPORT ---
Author Author [facility] Address Unknown Phone Unavailable Care Team Providers Care Dispatcher Service Or Work Name Role Phone KAREN PATRICE HUBBARD Unavailable Unavailable Problems This patient has no known problems. Allergies, Adverse Reactions, Alerts This patient has no known allergies or adverse reactions. Medications This patient has no known medications. Results Test Description Test Time Test Comments Text Results Atomic Results Result Comments CBC W/PLT COUNT & AUTO DIFFERENTIAL 2018-09-30 08:51:00 WHITE BLOOD CELL COUNT (BEAKER) (test jtdv=791) 8.3 K/ L 3.5-10.5 RED BLOOD CELL COUNT (BEAKER) (test zisv=905) 4.06 M/ L 4.63-6.08 HEMOGLOBIN (BEAKER) (test iebb=269) 12.4 GM/DL 13.7-17.5 HEMATOCRIT (BEAKER) (test gpcf=032) 38.7 % 40.1-51.0 MEAN CORPUSCULAR VOLUME (BEAKER) (test saol=472) 95.3 fL 79.0-92.2 MEAN CORPUSCULAR HEMOGLOBIN (BEAKER) (test akrq=939) 30.5 pg 25.7-32.2 MEAN CORPUSCULAR HEMOGLOBIN CONC (BEAKER) (test tvjn=094) 32.0 GM/DL 32.3-36.5 RED CELL DISTRIBUTION WIDTH (BEAKER) (test dznq=546) 12.6 % 11.6-14.4 PLATELET COUNT (BEAKER) (test acjw=195) 181 K/CU MM 150-450 MEAN PLATELET VOLUME (BEAKER) (test mqzl=420) 11.4 fL 9.4-12.4 NUCLEATED RED BLOOD CELLS (BEAKER) (test hyjp=115) 0 /100 WBC 0-0 NEUTROPHILS RELATIVE PERCENT (BEAKER) (test skcl=370) 70 % LYMPHOCYTES RELATIVE PERCENT (BEAKER) (test ydct=751) 21 % MONOCYTES RELATIVE PERCENT (BEAKER) (test zyxf=874) 7 % EOSINOPHILS RELATIVE PERCENT (BEAKER) (test ebnr=321) 2 % BASOPHILS RELATIVE PERCENT (BEAKER) (test bwnu=655) 1 % NEUTROPHILS ABSOLUTE COUNT (BEAKER) (test oksj=748) 5.80 K/ L 1.78-5.38 LYMPHOCYTES ABSOLUTE COUNT (BEAKER) (test mgpm=186) 1.71 K/ L 1.32-3.57 MONOCYTES ABSOLUTE COUNT (BEAKER) (test xehb=006) 0.55 K/ L 0.30-0.82 EOSINOPHILS ABSOLUTE COUNT (BEAKER) (test xjot=166) 0.20 K/ L 0.04-0.54 BASOPHILS ABSOLUTE COUNT (BEAKER) (test txxp=042) 0.04 K/ L 0.01-0.08 IMMATURE GRANULOCYTES-RELATIVE PERCENT (BEAKER) (test jkum=3117) 0 % 0-1 BASIC METABOLIC [id number] 08:49:00* Test Item Value Reference Range Comments SODIUM (BEAKER) (test gzdo=448) 143 meq/L 136-145 POTASSIUM (BEAKER) (test zlhm=408) 4.2 meq/L 3.5-5.1 CHLORIDE (BEAKER) (test fxfm=364) 105 meq/L 98-107 CO2 (BEAKER) (test yjxk=819) 30 meq/L 22-29 BLOOD UREA NITROGEN (BEAKER) (test jibe=735) 18 mg/dL 7-21 CREATININE (BEAKER) (test pbdm=229) 0.97 mg/dL 0.57-1.25 GLUCOSE RANDOM (BEAKER) (test tmsb=817) 85 mg/dL 70-105 CALCIUM (BEAKER) (test kbex=237) 9.3 mg/dL 8.4-10.2 EGFR (BEAKER) (test gwxr=5341) 76 mL/min/1.73 sq m ESTIMATED GFR IS NOT ACCURATE CREATININE CLEARANCE IN PREDICTING GLOMERULAR FILTRATION RATE. ESTIMATED GFR IS NOT APPLICABLE FOR DIALYSIS PATIENTS. POCT-GLUCOSE [id number] 09:03:00* Test Item Value Reference Range Comments POC-GLUCOSE METER (BEAKER) (test lefb=4968) 184 mg/dL 70-110 TESTED AT [facility] [address] [facility] [address] BASIC METABOLIC [id number] 05:07:00* Test Item Value Reference Range Comments SODIUM (BEAKER) (test pwcv=113) 140 meq/L 136-145 POTASSIUM (BEAKER) (test pfwf=358) 4.8 meq/L 3.5-5.1 CHLORIDE (BEAKER) (test ouje=354) 107 meq/L 98-107 CO2 (BEAKER) (test cxqp=082) 29 meq/L 22-29 BLOOD UREA NITROGEN (BEAKER) (test piqo=341) 16 mg/dL 7-21 CREATININE (BEAKER) (test fxgu=969) 1.09 mg/dL 0.57-1.25 GLUCOSE RANDOM (BEAKER) (test eunt=600) 193 mg/dL 70-105 CALCIUM (BEAKER) (test prij=847) 9.1 mg/dL 8.4-10.2 EGFR (BEAKER) (test ykdw=3137) 66 mL/min/1.73 sq m ESTIMATED GFR IS NOT ACCURATE CREATININE CLEARANCE IN PREDICTING GLOMERULAR FILTRATION RATE. ESTIMATED GFR IS NOT APPLICABLE FOR DIALYSIS PATIENTS. CBC (HEMOGRAM ONLY)2018-06-04 04:41:00* Test Item Value Reference Range Comments WHITE BLOOD CELL COUNT (BEAKER) (test pxuj=703) 8.5 K/ L 3.5-10.5 RED BLOOD CELL COUNT (BEAKER) (test zkjm=541) 3.69 M/ L 4.63-6.08 HEMOGLOBIN (BEAKER) (test qmsj=162) 11.1 GM/DL 13.7-17.5 HEMATOCRIT (BEAKER) (test zuyq=267) 35.4 % 40.1-51.0 MEAN CORPUSCULAR VOLUME (BEAKER) (test kmkj=814) 95.9 fL 79.0-92.2 MEAN CORPUSCULAR HEMOGLOBIN (BEAKER) (test kchu=941) 30.1 pg 25.7-32.2 MEAN CORPUSCULAR HEMOGLOBIN CONC (BEAKER) (test nfwd=173) 31.4 GM/DL 32.3-36.5 RED CELL DISTRIBUTION WIDTH (BEAKER) (test ualg=702) 12.9 % 11.6-14.4 PLATELET COUNT (BEAKER) (test gtxk=948) 156 K/CU MM 150-450 MEAN PLATELET VOLUME (BEAKER) (test pxqa=957) 11.1 fL 9.4-12.4 NUCLEATED RED BLOOD CELLS (BEAKER) (test rapj=505) 0 /100 WBC 0-0 POCT-GLUCOSE [id number] 22:54:00* Test Item Value Reference Range Comments POC-GLUCOSE METER (BEAKER) (test stkf=3972) 378 mg/dL 70-110 TESTED AT [place] [id number] [facility] [address] POCT-GLUCOSE [id number] 12:40:00* Test Item Value Reference Range Comments POC-GLUCOSE METER (BEAKER) (test qbhn=2405) 92 mg/dL 70-110 TESTED AT [address] [address] [id number] 10:31:00* Test Item Value Reference Range Comments ACTIVATED CLOTTING TIME (BEAKER) (test wfnr=677) 401 sec TESTED AT [address] [address] BASIC METABOLIC [id number] 07:27:00* Test Item Value Reference Range Comments SODIUM (BEAKER) (test kbld=201) 139 meq/L 136-145 POTASSIUM (BEAKER) (test vbst=364) 3.9 meq/L 3.5-5.1 CHLORIDE (BEAKER) (test tlve=661) 105 meq/L 98-107 CO2 (BEAKER) (test ikyz=294) 25 meq/L 22-29 BLOOD UREA NITROGEN (BEAKER) (test slzg=426) 18 mg/dL 7-21 CREATININE (BEAKER) (test pcau=919) 0.96 mg/dL 0.57-1.25 GLUCOSE RANDOM (BEAKER) (test zgzb=253) 91 mg/dL 70-105 CALCIUM (BEAKER) (test zzpm=522) 8.7 mg/dL 8.4-10.2 EGFR (BEAKER) (test oooh=2998) 77 mL/min/1.73 sq m ESTIMATED GFR IS NOT ACCURATE CREATININE CLEARANCE IN PREDICTING GLOMERULAR FILTRATION RATE. ESTIMATED GFR IS NOT APPLICABLE FOR DIALYSIS PATIENTS. CBC W/PLT COUNT & AUTO [id number] 07:10:00* Test Item Value Reference Range Comments WHITE BLOOD CELL COUNT (BEAKER) (test hazc=853) 8.0 K/ L 3.5-10.5 RED BLOOD CELL COUNT (BEAKER) (test lmbu=059) 3.80 M/ L 4.63-6.08 HEMOGLOBIN (BEAKER) (test gkcl=320) 11.5 GM/DL 13.7-17.5 HEMATOCRIT (BEAKER) (test vmog=659) 35.6 % 40.1-51.0 MEAN CORPUSCULAR VOLUME (BEAKER) (test kpso=580) 93.7 fL 79.0-92.2 MEAN CORPUSCULAR HEMOGLOBIN (BEAKER) (test aqbf=730) 30.3 pg 25.7-32.2 MEAN CORPUSCULAR HEMOGLOBIN CONC (BEAKER) (test thja=462) 32.3 GM/DL 32.3-36.5 RED CELL DISTRIBUTION WIDTH (BEAKER) (test yijf=722) 12.9 % 11.6-14.4 PLATELET COUNT (BEAKER) (test smun=152) 180 K/CU MM 150-450 MEAN PLATELET VOLUME (BEAKER) (test wlop=817) 11.3 fL 9.4-12.4 NUCLEATED RED BLOOD CELLS (BEAKER) (test edxo=630) 0 /100 WBC 0-0 NEUTROPHILS RELATIVE PERCENT (BEAKER) (test qoje=256) 63 % LYMPHOCYTES RELATIVE PERCENT (BEAKER) (test fuvf=581) 27 % MONOCYTES RELATIVE PERCENT (BEAKER) (test vcqn=531) 7 % EOSINOPHILS RELATIVE PERCENT (BEAKER) (test vscc=683) 3 % BASOPHILS RELATIVE PERCENT (BEAKER) (test xlzx=975) 0 % NEUTROPHILS ABSOLUTE COUNT (BEAKER) (test becs=330) 5.02 K/ L 1.78-5.38 LYMPHOCYTES ABSOLUTE COUNT (BEAKER) (test ukrc=969) 2.13 K/ L 1.32-3.57 MONOCYTES ABSOLUTE COUNT (BEAKER) (test awqy=088) 0.56 K/ L 0.30-0.82 EOSINOPHILS ABSOLUTE COUNT (BEAKER) (test ldmr=760) 0.22 K/ L 0.04-0.54 BASOPHILS ABSOLUTE COUNT (BEAKER) (test vebf=677) 0.03 K/ L 0.01-0.08 IMMATURE GRANULOCYTES-RELATIVE PERCENT (BEAKER) (test ivag=3256) 0 % 0-1
--- OUTSIDE RECORDS SUMMARY | 2019-04-17 10:37 | XMS REPORT | Summary of Care ---
Author Author [facility] Address [address] [place] [address] Phone Unavailable Care Team Providers Care Director Of Hemophilia Name Role Phone BRANDAN HANLEY M.D. Unavailable Unavailable CHELSY SHEPARD M.D. Unavailable Unavailable PANFILO GOULD MD Unavailable Unavailable JUVENAL MCFARLANDHERMES Unavailable Unavailable Unavailable Unavailable Functional Status Name Dates Details Functional status health issues are not documented Status: Name Dates Details Cognitive status health issues are not documented Status: Problems Name Dates Details Cerebral palsy (343.9, G80.9) Status: Active Unstable gait (781.2, R26.81) Status: Active Hypertension (401.9, I10) Status: Active Hyperlipidemia (272.4, E78.5) Status: Active History of myocardial infarction (412, I25.2) Status: Active Diabetes mellitus (250.00, E11.9) Status: Active CAD (coronary artery disease) (414.00, I25.10) Status: Active Carotid stenosis (433.10, I65.29) Status: Active Medications Name Dates Details Aspirin 81 MG TABS TAKE 1 TABLET DAILY. Quantity: 60 Active NovoLIN 70/30 (70-30) 100 UNIT/ML Subcutaneous Suspension USE DIRECTED. * Refills: 0 Active Atorvastatin Calcium 40 MG Oral Tablet TAKE ONE TABLET BY MOUTH EVERY DAY AT BEDTIME * Quantity: 90 Refills: 1 BRANDAN HANLEY M.D. Active Clopidogrel Bisulfate 75 MG Oral Tablet TAKE 1 TABLET DAILY * Quantity: 90 Refills: 1 BRANDAN HANLEY M.D. Active Glimepiride 2 MG Oral Tablet TAKE 1 TABLET DAILY DIRECTED. * Refills: 0 Active Isosorbide Mononitrate ER 120 MG Oral Tablet Extended Release 24 Hour TAKE 1 TABLET BY MOUTH DAILY * Quantity: 90 Refills: 1 CHELSY SHEPARD M.D. * Start : 24-Jul-2017 Active Metoprolol Succinate ER 50 MG Oral Tablet Extended Release 24 Hour TAKE 1 TABLET BY MOUTH DAILY * Quantity: 90 Refills: 1 CHELSY SHEPARD M.D. * Start : 24-Jul-2017 Active Furosemide 40 MG Oral Tablet TAKE 1 TABLET BY MOUTH DAILY * Quantity: 90 Refills: 0 CHELSY SHEPARD M.D. * Start : 28-Oct-2017 Active Nitroglycerin 0.4 MG Sublingual Tablet Sublingual DISSOLVE 1 TABLET UNDER THE TONGUE NEEDED FOR CHEST PAIN. * Quantity: 25 Refills: 1 CHELSY SHEPARD M.D. * Start : 24-May-2016 Active Ranexa 500 MG Oral Tablet Extended Release 12 Hour TAKE 1 TABLET TWICE DAILY * Quantity: 180 Refills: 1 CHELSY SHEPARD M.D. * Start : 24-May-2016 Active Carbidopa-Levodopa 10-100 MG Oral Tablet * Refills: 0 ORETGA GOFF M.D., CHELSY * Start : 30-Aug-2016 Active Metoprolol Succinate ER 25 MG Oral Tablet Extended Release 24 Hour TAKE 1 TABLET BY MOUTH EVERY NIGHT AT BEDTIME * Quantity: 90 Refills: 1 CHELSY SHEPARD M.D. * Start : 24-Jul-2017 Active Allergies and Adverse Reactions Name Dates Details No Known Drug Allergies (Allergy) Status: Active Past Medical History Name Dates Details Diabetes mellitus (250.00, E11.9) Status: Active Hypertension (401.9, I10) Status: Active History of hyperlipidemia (V12.29, Z86.39) Status: Resolved History of myocardial infarction (412, I25.2) Status: Resolved History of peripheral vascular disease (V12.59, Z86.79) Status: Resolved Procedures Procedure Dates Details Echo (In Office) Date: 04-Dec-2017 Echo (In Office) Date: 19-Dec-2017 [facility] [place] [id number] Date: 04-Dec-2017 History of Appendectomy Completed History of CABG Completed Immunization Name Dates Details Immunizations not documented Family History Name Dates Details Family history of diabetes mellitus (V18.0, Z83.3) Status: Active Family history of cardiac disorder (V17.49, Z82.49) Status: Active Family history of malignant neoplasm (V16.9, Z80.9) Status: Active Name Dates Details Family history of diabetes mellitus (V18.0, Z83.3) Status: Active Name Dates Details Family history of cardiac disorder (V17.49, Z82.49) Status: Active Social History Name Dates Details - Status: Name Dates Details Never smoker Vital Signs Date Test Result Details [id number] BP Systolic 140 mm[Hg] Status: Comments: Location: LUE; Position: Sitting BP Diastolic 58 mm[Hg] Status: Comments: Location: LUE; Position: Sitting Height 66 in Status: Weight 233.6 lb Status: Body Mass Index Calculated 37.7 kg/m2 Status: Body Surface Area Calculated 2.14 m2 Status: Heart Rate 55 /min Status: Comments: Location: L Radial; Quality: Normal Results Date Description Value Details Results not documented Plan of Care Name Dates Details Planned Observations Planned Goals not documented Planned Encounters Appointment; CHELSY SHEPARD M.D. On: 03-Jan-2018 9:30 Instructions Name Dates Details Instructions not documented Encounters Appointment; SE, ECHO Encounter Diagnosis: Problem not documented On: 28-Dec-2015 16:00 Appointment; CHELSY SHEPARD M.D. Encounter Diagnosis: Problem not documented On: 04-Jan-2016 9:15 Appointment; CHELSY SHEPARD M.D. Encounter Diagnosis: Problem not documented On: 27-Jan-2016 9:30 Appointment; SE, ECHO Encounter Diagnosis: Problem not documented On: 23-May-2016 9:00 Appointment; CHELSY SHEPARD M.D. Encounter Diagnosis: Problem not documented On: 24-May-2016 10:15 Appointment; CHELSY SHEPARD M.D. Encounter Diagnosis: Problem not documented On: 30-Aug-2016 8:45 Appointment; CHELSY SHEPARD M.D. Encounter Diagnosis: Problem not documented On: 01-Nov-2016 9:30 Appointment; CHELSY SHEPARD M.D. Encounter Diagnosis: Problem not documented On: 13-Dec-2016 9:00 Appointment; SE, ECHO Encounter Diagnosis: Problem not documented On: 24-Apr-2017 11:00 Appointment; CHELSY SHEPARD M.D. Encounter Diagnosis: Problem not documented On: 13-Jun-2017 9:00 Appointment; CHELSY SHEPARD M.D. Encounter Diagnosis: Problem not documented On: 04-Dec-2017 9:45 Appointment; SE, ECHO Encounter Diagnosis: Problem not documented On: 19-Dec-2017 8:45
--- OUTSIDE RECORDS SUMMARY | 2019-04-17 10:37 | XMS REPORT | Summary of Care ---
Author Author [facility] Organization [facility] Address Unknown Phone Unavailable Encounter ARLENE Mohan(MIKE) [id number] Date(s): 08/14/16 - 08/14/16 [facility] [address] [place] [address]- Discharge Disposition: Home or Self Care Attending Physician: Hugo Dutta MD Referring Physician: Hugo Dutta MD Vital Signs No data available for this section Problem List Condition Effective Dates Status Health Status Informant [D]Chest Active pain(Confirmed) Arthritis(Confirmed) Active CAD - Coronary Active artery disease(Confirmed) Cerebral Active palsy(Confirmed) Chronic Active pain(Confirmed) Diabetes Active mellitus(Confirmed) COCOPAH - Hard of Active hearing(Confirmed) Hypertension(Confirm Active [...] Fair condition. Exercise type: Walking. 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 Activity level: Occasional physical work. Operates hazardous equipment: No. Alcohol Past Smoking Status Never smoker; Exposure to Tobacco Smoke None; Cigarette Smoking Last 365 Days No; Reg Smoking Cessation Counseling No Assessment and Plan No data available for this section
[2019-04-17 12:09] LABS: BASOPHILS % 0.4 % (0.0-1.0); EOSINOPHILS # (AUTO) 0.1 (0.0-0.4); EOSINOPHILS % 1.9 % (0.0-6.0); HEMATOCRIT 37.5 % (38.2-49.6); HEMOGLOBIN 11.8 g/dL (14.0-18.0); LYMPHOCYTES # (AUTO) 1.7 (1.0-3.2); LYMPHOCYTES % 22.9 % (18.0-39.1); MEAN CORPUSCULAR HEMOGLOBIN 29.4 pg (28-32); MEAN CORPUSCULAR HGB CONC 31.5 g/dL (31-35); MEAN CORPUSCULAR VOLUME 93.5 fL (81-99); MONOCYTES # (AUTO) 0.6 (0.2-0.8); MONOCYTES % 7.8 % (4.4-11.3); NEUTROPHILS # (AUTO) 4.8 (2.1-6.9); NEUTROPHILS % 66.7 % (38.7-80.0); PLATELET COUNT 175 x10e3/uL (140-360); RED BLOOD COUNT 4.01 x10e6/uL (4.3-5.7); RED CELL DISTRIBUTION WIDTH 12.6 % (11.7-14.4)
--- NOTE | 2019-04-17 12:12 | Diagnostic Imaging Report ---
EXAMINATION: SP LUMBAR, COMPLETE MIN 4VW INDICATION: Back pain, trauma COMPARISON: None FINDINGS: 4 views of the lumbar spine demonstrate severe degenerative changes at L5-S1 with possible inferior endplate fracture deformity of L5 with some height loss of the posterior vertebral body. Vertebral body heights are maintained at all other visualized levels. Nonobstructive bowel gas pattern. Severe atherosclerotic calcifications of the abdominal aorta. IMPRESSION: Possible inferior endplate fracture deformity at L5 with mild posterior vertebral body height loss superimposed on severe L5-S1 degenerative changes. RECOMMENDATIONS: In the setting of acute pain, MRI can be considered for confirmation. If there is acute fracture and point tenderness, this would be amenable for percutaneous vertebral augmentation. Signed by: Adrian Moreno MD on 04/17/2019 12:08 PM
[2019-04-17 12:21] LABS: BILIRUBIN,URINE NEGATIVE (NEGATIVE); CLARITY,URINE CLEAR (CLEAR); COLOR,URINE YELLOW (YELLOW); KETONES,URINE NEGATIVE (NEGATIVE); LEUKOCYTE ESTERASE ,URINE NEGATIVE (NEGATIVE); NITRITE,URINE NEGATIVE (NEGATIVE); PROTEIN,URINE DIPSTICK NEGATIVE (NEGATIVE); URINE UROBILINOGEN 0.2 mg/dL (0.2 - 1)
[2019-04-17 12:28] LABS: ANION GAP 15.4 mmol/L (8-16); BLOOD UREA NITROGEN 15 mg/dL (7-26); BUN/CREATININE RATIO 16 (6-25); CALCIUM 9.1 mg/dL (8.4-10.2); CARBON DIOXIDE 29 mmol/L (22-29); CHLORIDE 102 mmol/L (98-107); CREATININE, SERUM 0.93 mg/dL (0.72-1.25); EST GLOMERULAR FILTRATION RATE > 60 ML/MIN (60-); GLUCOSE 99 mg/dL (74-118); POTASSIUM 4.4 mmol/L (3.5-5.1); SODIUM 142 mmol/L (136-145)
[2019-04-17 12:36] LABS: BACTERIA,URINE FEW /HPF; EPITHELIAL CELLS,URINE RARE /LPF; RBC,URINE 0-5 /HPF (0-5); WBC,URINE (MAN) 0-5 /HPF (0-5)
[2019-04-17] MEDS ORDERED: DEXAMETHASONE SOD PHOS 10 MG/1 ML VIAL IV ONE (13:30)
[2019-04-17] MEDS ORDERED: ORPHENADRINE CITRATE 30 MG/ML VIAL IM ONE (13:30)
[2019-04-17] MEDS ORDERED: KETOROLAC TROMETHAMINE 60 MG/2 ML VIAL IM ONE (13:30)
[2019-04-17] MEDS ORDERED: CRESTOR40 MG PO (20:52)
[2019-04-17] MEDS ORDERED: GABAPENTIN600 MG PO (20:52)
[2019-04-17] MEDS ORDERED: SERTRALINE HCL25 MG PO (20:52)
[2019-04-17] MEDS ORDERED: AMLODIPINE BES2.5 MG PO (20:53)
[2019-04-17] MEDS ORDERED: NOVOLIN N100 UNIT/1 SQ (20:55)
[2019-04-18] MEDS ORDERED: LISINOPRIL2.5 MG PO (16:46)
== END 2019-04-17 13:41 | disposition home or self-care (01) ==
LOC: ER 10:26
DX: M54.42 Lumbago with sciatica, left side (principal); I12.9 Hypertensive chronic kidney disease with stage 1 through stage 4 chronic kidney disease, or unspecified chronic kidney disease; E11.22 Type 2 diabetes mellitus with diabetic chronic kidney disease; N18.9 Chronic kidney disease, unspecified; Z95.5 Presence of coronary angioplasty implant and graft; Z95.1 Presence of aortocoronary bypass graft; E78.5 Hyperlipidemia, unspecified
CPT/HCPCS: 36415; 72110; 80048; 81001; 85025; 99283; J1100; J1885; J2360

== ENCOUNTER 2019-04-17 17:57 | Observation (INO) | payer MEDICARE ==
[~2019-04-17] VITALS: Ht 167.6 cm; Wt 101.2 kg
--- OUTSIDE RECORDS SUMMARY | 2019-04-17 18:01 | XMS REPORT | Clinical Summary ---
Author Author [facility] Address Unknown Phone Unavailable Care Team Providers Care Medicine Assistant Name Role Phone Pcp, No PCP Unavailable [...] unspecified vessel or lesion type, unspecified whether [place] or transplanted heart 06/03/2018 Hospital Cardiology - [...] Taken Vital Sign Reading 09/30/2018 3:30 PM [employer] Blood Pressure 152/67 09/30/2018 3:30 PM [employer] Pulse 67 09/30/2018 7:12 AM [employer] Temperature 36.7 C (98.1 F) 09/30/2018 3:30 PM [employer] Respiratory Rate 18 09/30/2018 1:00 PM [employer] Oxygen Saturation 97% - Inhaled Oxygen - Concentration 09/30/2018 7:12 AM [employer] Weight 104.5 kg (230 lb 6.4 oz) 09/30/2018 7:12 AM [employer] Height 167.6 cm (5' 6") 09/30/2018 7:12 AM [employer] Body Mass Index 37.19 Plan of Treatment Not on file Implants Device Identifier Shelf Expiration Date Model / Serial / Lot Implanted Type Area Manufactur er [id number] 02/20/2019 [id number] / / [id number] Device Clsr Angio-Seal Vip 6fr Cardiovasc N/A: Groin [employer] [id number] - [id number] ular MED:CARDIA Implanted: Qty: 1 on 06/03/2018 by Bobby Santos MD 06/22/2019 [id number] / [id number] / [id number] Device Clsr Angio-Seal Vip 6fr Cardiovasc [employer] [id number] - [id number] yanna MED:CARDIA Implanted: Qty: 1 on 09/30/2018 by Bobby Santos MD [id number] 04/05/2019 [id number] / / [id number] Promus Premier Stents-Cor N/A: Heart [place] Implanted: Qty: 1 on 06/03/2018 by Bobby Robert MD Procedures Comments Procedure Name Priority Date/Time Associated Diagnosis VASCULAR DIAGRAM -SCAN 01/07/2019 10:01 AM CDT VASCULAR DIAGRAM -SCAN 01/02/2019 5:11 AM CDT VASCULAR DIAGRAM -SCAN 11/13/2018 4:40 PM [employer] REPORT OF PROCEDURE - 10/20/2018 ENDOSCOPY SCAN 10:00 AM [employer] CARDIAC CATH REPORT - 10/20/2018 SCAN 10:00 AM [employer]ER[employer] L CATH & PCI 09/30/2018 Angina pectoris (HCC) 1:01 PM [employer] Case Notes (3) CASE POP6 mGy 2341. ECG 12-LEAD STAT 09/30/2018 8:44 AM [employer] CBC W/PLT COUNT & AUTO STAT 09/30/2018 DIFFERENTIAL 8:20 AM [employer] CBC W/PLT COUNT & AUTO STAT 09/30/2018 DIFFERENTIAL 8:20 AM [employer]ER[employer] BASIC METABOLIC PANEL (7) STAT 09/30/2018 8:20 AM [employer]ERGY [employer] RHYTHM STRIP - SCAN 06/05/2018 1:41 PM [...] unspecified vessel or lesion type, unspecified whether [place] or transplanted heart Case Notes (2) CASE POP6 ECG 12-LEAD Routine 06/03/2018 7:33 AM CDT Procedure Note - Interface, External Ris In - 06/03/2018 7:47 AM CDT Ventricula r Rate 52 BPM Atrial Rate 52 BPM P-R Interval 198 ms QRS Duration 106 ms Q-T Interval 474 ms QTC Calculatio n(Bazett) 440 ms P [place] 53 degrees R [place] 34 degrees T [place] 51 degrees Sinus bradycardi a with marked [...] Performed At * EKG-SCANNED (10/20/2018 10:00 AM COMMERCIAL [employer]ER[employer]) Only the most recent of 2 results within the time period is included. Narrative Performed At * CARDIAC CATH REPORT - SCAN (10/20/2018 10:00 AM COMMERCIAL ENERGY [employer]) Narrative Performed At * ECG 12 lead (09/30/2018 8:44 AM COMMERCIAL ENERGY [employer]ATER) Only the most recent of 2 results within the time period is included. Specimen Narrative Performed At Ventricular Rate 54 BPM GE MUSE Atrial Rate 54 BPM P-R Interval 194 ms QRS Duration 112 ms Q-T Interval 486 ms QTC Calculation(Bazett) 460 ms P [place] 58 degrees R [place] 40 degrees T [place] 45 degrees Sinus bradycardia Left atrial enlargement Prolonged QT Abnormal ECG No previous ECGs available Confirmed by MD Glaser Roberto ([id number]) on 09/30/2018 1:10:00 PM Procedure Note Interface, External Ris In - 09/30/2018 1:10 PM [employer]ER[employer] Ventricular Rate 54 BPM Atrial Rate 54 BPM P-R Interval 194 ms QRS Duration 112 ms Q-T Interval 486 ms QTC Calculation(Bazett) 460 ms P [place] 58 degrees R [place] 40 degrees T [place] 45 degrees Sinus bradycardia Left atrial enlargement Prolonged QT Abnormal ECG No previous ECGs available Confirmed by MD Glaser Roberto ([id number]) on 09/30/2018 1:10:00 PM Performing Organization Address City/State/Zipcode Phone Number [facility]ULL[facility] * CBC with platelet count + automated diff (09/30/2018 8:20 AM COMMER[employer]ERGY [employer]) Only the most recent of 2 results within the time period is included. WBC 8.3 3.5 - 10.5 K/L [facility] RBC 4.06 (L) 4.63 - 6.08 M/L [facility] Hemoglobin 12.4 (L) 13.7 - 17.5 GM/DL [facility] Hematocrit 38.7 (L) 40.1 - 51.0 % [facility] MCV 95.3 (H) 79.0 - 92.2 fL [facility] MCH 30.5 25.7 - 32.2 pg [facility] MCHC 32.0 (L) 32.3 - 36.5 GM/DL [facility] RDW 12.6 11.6 - 14.4 % [facility] Platelets 181 150 - 450 K/CU MM [facility] MPV 11.4 9.4 - 12.4 fL [facility] nRBC 0 0 - 0 /100 WBC [facility] % Neutros 70 % [facility] % Lymphs 21 % [facility] % Monos 7 % [facility] % Eos 2 % [facility] % Baso 1 % [facility] # Neutros 5.80 (H) 1.78 - 5.38 K/L [facility] # Lymphs 1.71 1.32 - 3.57 K/L [facility] # Monos 0.55 0.30 - 0.82 K/L [facility] # Eos 0.20 0.04 - 0.54 K/L [facility] # Baso 0.04 0.01 - 0.08 K/L [facility] Immature 0 0 - 1 % [facility] Granulocytes-[facility] Specimen Blood Performing Organization Address City/State/Zipcode Phone Number [facility] [address] [place] [address] [facility] * Basic metabolic panel (09/30/2018 8:20 AM COMMERCIAL [employer]ERGY [employer]) Only the most recent of 3 results within the time period is included. Sodium 143 136 - 145 meq/L [facility] Potassium 4.2 3.5 - 5.1 meq/L [facility] Chloride 105 98 - 107 meq/L [facility] CO2 30 (H) 22 - 29 meq/L [facility] BUN 18 7 - 21 mg/dL [facility] Creatinine 0.97 0.57 - 1.25 mg/dL [facility] Glucose 85 70 - 105 mg/dL [facility] Calcium 9.3 8.4 - 10.2 mg/dL [facility] EGFR 76Comment: ESTIMATED GFR IS mL/min/1.73 sq m [facility] NOT ACCURATE CREATININE [facility] CLEARANCE IN PREDICTING GLOMERULAR FILTRATION RATE. ESTIMATED GFR IS NOT APPLICABLE FOR DIALYSIS PATIENTS. Specimen Blood Performing Organization Address City/[facility] Phone Number [address] [address] [facility] * RHYTHM STRIP - SCAN (06/05/2018 1:41 PM CDT) Narrative Performed At * CARDIAC CATH REPORT - SCAN (06/05/2018 1:41 PM CDT) Narrative Performed At * POC-Glucose meter (06/04/2018 8:30 AM CDT) Only the most recent of 3 results within the time period is included. POC-Glucose Meter 184 (H)Comment: TESTED AT 70 - 110 mg/dL [address] [address] Specimen Blood Performing Organization Address City/[facility] Phone Number [address] [address] [facility] * CBC (Hemogram only) (06/04/2018 4:14 AM CDT) WBC 8.5 3.5 - 10.5 K/L [facility] RBC 3.69 (L) 4.63 - 6.08 M/L [facility] Hemoglobin 11.1 (L) 13.7 - 17.5 GM/DL [facility] Hematocrit 35.4 (L) 40.1 - 51.0 % [facility] MCV 95.9 (H) 79.0 - 92.2 fL [facility] MCH 30.1 25.7 - 32.2 pg [facility] MCHC 31.4 (L) 32.3 - 36.5 GM/DL [facility] RDW 12.9 11.6 - 14.4 % [facility] Platelets 156 150 - 450 K/CU MM [facility] MPV 11.1 9.4 - 12.4 fL [facility] nRBC 0 0 - 0 /100 WBC [facility] Specimen Blood Performing Organization Address City/[facility] Phone Number [facility] [address] [place] [phone] [facility] * POC ACTIVATED CLOTTING TIME (06/03/2018 10:16 AM CDT) Activated Clotting Time 401Comment: TESTED AT [facility] sec [address] [address] [facility] Specimen Blood Performing Organization Address City/[facility] Phone Number [facility] [address] [place] [address] [phone] [facility] after 04/16/2018 Insurance Payer Benefit Subscriber ID Type Phone Address Plan / Group [employer] - MEDICARE MGD CARE AETNA xxxxxxxx [facility] [phone] [address] [place] [address] [facility] Advance Directives For more information, please contact: [address] [address] Date Inactivated Comments Code Status Date Activated Full Code 09/30/2018 1:01 PM This code status was determined by: Patient 09/30/2018 1:01 PM Full Code 09/30/2018 7:26 AM This code status was determined by: Patient 06/03/2018 12:20 PM Full Code 06/03/2018 6:33 AM This code status was determined by: Patient
--- OUTSIDE RECORDS SUMMARY | 2019-04-17 18:04 | XMS REPORT | Continuity of Care Document ---
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 Role Phone [employer] Unavailable Unavailable Problems Problem Status Onset Date Classification Date Reported Comments Source Occlusion and stenosis of bilateral carotid arteries 12/13/2017 03/15/2018 [facility] CAROTID STENOSIS I65.29 Active 12/04/2017 [facility] VOMITING/NAUSEA Active 03/14/2017 [facility] GASTROENTERITIS, DEHYDRATION Active 03/14/2017 [facility] CHEST PAIN Active 02/04/2017 [facility] BERNARDO (ACUTE KIDNEY INJURY), CHEST PAIN Active 02/04/2017 [facility] DX: [id number] DISEASE Active 07/04/2016 [facility] AORTIC STENOSIS Q25.3 Active 06/04/2016 [facility] AORTIC STENOSIS; I35.0; I25.10; R07.9 Active 01/06/2016 [facility] NSTEMI Active 11/10/2015 [facility] Secondary, uncontrolled diabetes mellitus without mention of complication Active 12/01/2008 Problem 03/15/2018 [facility] Poor memory Active Problem 04/16/2019 [facility] Mixed hyperlipidemia Active Problem 04/16/2019 [facility] Acute renal failure, unspecified acute renal failure type Active Diagnosis 02/14/2017 [facility] 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 Active Problem 04/16/2019 [facility] 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 Active Problem 04/16/2019 [...] [facility] History of [place] Active Problem 04/16/2019 [facility] [...] pain with left-sided sciatica Active Diagnosis 04/16/2019 [facility] Screening for [...] [facility] [D]Chest pain Active Problem 03/15/2018 [facility] Arthritis Active Problem 03/15/2018 [facility] CAD - Coronary artery disease Active Problem 03/15/2018 [facility] Cerebral palsy Active Problem 03/15/2018 [facility] Chronic pain Active Problem 03/15/2018 [facility] Diabetes mellitus Active Problem 03/15/2018 [facility] CHEFORNAK - Hard of hearing Active Problem 03/15/2018 [facility] Hypertension Active Problem 03/15/2018 [facility] Incontinence of urine Active Problem 03/15/2018 [facility] Neuropathy Active Problem 03/15/2018 [facility] Swelling of ankle joint1 Active Problem 03/15/2018 Occasional swelling around both ankles [facility] Chest pain Resolved Problem 03/15/[address] [facility] [address] ELEVATION (STEMI) MYOCARDIAL INFARCTI Active [facility] SUPRAVALVULAR AORTIC STENOSIS Active [facility] PARKINSON'S DISEASE Active [facility] ACUTE KIDNEY FAILURE, UNSPECIFIED Active [facility] CHEST PAIN, UNSPECIFIED Active [facility] NONINFECTIVE GASTROENTERITIS AND COLITIS Active [facility] DEHYDRATION Active [facility] Medications Medication Details Route Status Patient Instructions Ordering Provider Order Date Source Rosuvastatin Calcium 1 tablet Orally Active 40 mg Orally Once a day [place] 08/08/2018 [facility] Ass FreeStyle Sudeep Sensor System as directed NA Active - apply every 3-5 days (DX E11.65) [place] 07/24/2018 [facility] Ass FreeStyle Sudeep [place] as directed NA Active - read sensor as often as TID (DX E11.65) [place] 07/24/2018 [facility] Glimepiride 1 tablet with breakfast or the first main meal of the day by mouth Active 4 mg by mouth with dinner [place] 04/08/2018 [facility] Novolin 70/30 PenFill as directed Subcutaneous Active (70-30) 100 UNIT/ML Subcutaneous 65 units in am, 55 units at night [place] 03/19/2018 [facility] Humalog Mix 75/25 Pen 65 UNITS AM AND 45 UNITS PM subcutaneously Active (75-25) 100 UNIT/ML subcutaneously daily [place] 03/17/2018 [facility] Gabapentin 1 tablet by mouth Active 600 MG by mouth twice a day (bid) [place] 03/06/2018 [facility] Visipaque 100 mL, 0 ml/hr, Route: IV, Drug Form: KASI CARRILLO, Start date: 12/07/17 12:00:00 CDT, Duration: 1 doses or timesNotes: (Same as: Visipaque). WASTE: F/P - Black; E - Municipal Trash Bin Active 12/07/2017 [facility] Meclizine HCl 1 tablet as needed Orally Active 25 MG Orally Once a day [place] 10/15/2017 [facility] UltiCare Insulin Syringe as directed subcutaneously Active 29G X 1/2 subcutaneously as directed 65 units am and 45 units pm [place] 09/30/2017 [facility] OneTouch Lancets as directed in vitro Active - in vitro use tid dx: E11.65, Z79.4 [place] 09/09/2017 [facility] NovoFine as directed intramuscularly Active 32G X 6 MM intramuscularly use bid dx: E11.65, Z79.4 [place] 09/09/2017 [facility] One Touch/One Touch II Starter as directed In Vitro Active - In Vitro use tid dx: E11.65, Z79.4 [place] 09/09/2017 [facility] OneTouch Test as directed In Vitro Active - In Vitro use tid dx: E11.65, Z79.4 [place] 09/09/2017 [facility] ProAir HFA 2 puffs as needed Inhalation Active 108 (90 Base) MCG/ACT Inhalation every 4 hrs [facility] 03/21/2017 [facility] Zoloft 1 tablet Orally Active 25 MG Orally Once a day [facility] 03/21/2017 [facility] ProAir HFA 2 puffs as needed Inhalation Active 108 (90 Base) MCG/ACT Inhalation every 4 hrs [facility] 03/21/2017 [facility] Zoloft 1 tablet Orally Active 25 MG Orally Once a day [facility] 03/21/2017 [facility] Alprazolam 0.25 MG Oral Tablet [Xanax] 0.25 mg, 1 tab, Route: PO, Drug form: TAB, BID, Dosing Weight 100, kg, PRN as needed for anxiety, Start date: 03/16/17 21:25:00 CDT, Duration: 30 day, Stop date: 04/15/17 21:24:00 CDTNotes: With food or milk (Same as: Xanax) No Longer Active 03/17/2017 [facility] 24 HR Metoprolol Tartrate 50 MG Extended Release Tablet [Toprol] 50 mg, 1 tab, Route: PO, Drug form: ERTAB, Daily, Start date: 03/16/17 9:00:00 CDT, Duration: 30 day, Stop date: 04/14/17 9:00:00 CDTNotes: (Same as: Toprol XL) May split tab, but do not crush. No Longer Active 03/16/2017 [facility] clopidogrel 75 mg, 1 tab, Route: PO, Drug form: TAB, Daily, Dosing Weight 100, kg, Start date: 03/16/17 9:00:00 CDT, Duration: 30 day, Stop date: 04/14/17 9:00:00 CDTNotes: (Same As: Plavix) No Longer Active 03/16/2017 [facility] Isosorbide 120 mg, 4 tab, Route: PO, Drug form: ERTAB, QAM, Dosing Weight 100, kg, Start date: 03/16/17 9:00:00 CDT, Duration: 30 day, Stop date: 04/14/17 9:00:00 CDTNotes: (Same as:Imdur) "Do Not Crush" Take on empty stomach/ full glass of water. Do not crush No Longer Active 03/16/2017 [facility] Isosorbide Dinitrate 90 mg, Route: PO, Drug form: TAB, Daily, Dosing Weight 100, kg, Start date: 03/16/17 9:00:00 CDT, Duration: 30 day, Stop date: 04/14/17 9:00:00 CDT No Longer Active 03/16/2017 [facility] atorvastatin 40 mg, 1 tab, Route: PO, Drug form: TAB, Bedtime, Dosing Weight 100, kg, Start date: 03/15/17 21:00:00 CDT, Duration: 30 day, Stop date: 04/13/17 21:00:00 CDTNotes: (Same as: Lipitor) No Longer Active 03/16/2017 [facility] Sodium Bicarbonate 325 MG Oral [...] food or drink." No Longer Active 03/15/2017 [facility] 12 HR ranolazine 500 MG Extended Release Tablet [Ranexa] 500 mg, 1 tab, Route: PO, Drug form: TAB, BID, Dosing Weight 100, kg, Start date: 03/15/17 17:00:00 CDT, Duration: 30 day, Stop date: 04/14/17 9:00:00 CDTNotes: Same as Ranexa "Do Not Crush" No Longer Active 03/15/2017 [facility] Carbidopa 10 MG / Levodopa 100 MG Oral Tablet 1 tab, Route: PO, Drug Form: TAB, Dosing Weight 100, kg, BID, Start date: 03/15/17 17:00:00 CDT, Duration: 30 day, Stop date: 04/14/17 9:00:00 CDTNotes: Take with milk or food. (Same As: Sinemet) No Longer Active 03/15/2017 [facility] aspirin 81 mg tablet, enteric coated 81 mg, 1 tab, Route: PO, Drug form: ECTAB, Daily, Dosing Weight 100, kg, Start date: 03/15/17 13:48:00 CDT, Duration: 30 day, Stop date: 04/14/17 9:00:00 CDTNotes: Do not crush or chew. (Same As: Ecotrin) No Longer Active 03/15/2017 [facility] Nitroglycerin 0.4 MG Sublingual Tablet [Nitrostat] 0.4 mg, 1 tab, Route: SL, Drug form: TAB, Q5Min, Dosing Weight 100, kg, PRN Chest Pain, Start date: 03/15/17 13:36:00 CDT, Duration: 30 day, Stop date: 04/14/17 13:35:00 CDTNotes: (Same as:Nitroquick, Nitrostat) "Do Not Crush" Sublingual tablet No Longer Active 03/15/2017 [facility] Docusate 100 mg, 1 cap, Route: PO, Drug form: CAP, BID, Dosing Weight 100, kg, Start date: 03/15/17 9:00:00 CDT, Duration: 30 day, Stop date: 04/13/17 17:00:00 CDTNotes: (Same as: Colace) (Do Not Crush) No Longer Active 03/15/2017 [facility] Streptococcus pneumoniae serotype 1 capsular antigen diphtheria [id number] protein conjugate vaccine / Streptococcus pneumoniae serotype 14 capsular antigen diphtheria [id number] protein conjugate vaccine / Streptococcus pneumoniae serotype 18C capsular antigen d 0.5 mL, Route: IM, Drug Form: INJ, ONCALL, Start date: 03/14/17 23:00:00 CDT, Duration: 1 doses or timesNotes: Shake well prior to use (Same as: Prevnar 13) No Longer Active 03/15/2017 [facility] Morphine 1 mg, 0.5 mL, Route: IVP, Drug form: INJ, Q4H, Dosing Weight 100, kg, PRN Pain Score 1-5, Start date: 03/14/17 22:32:00 CDT, Duration: 30 day, Stop date: 04/13/17 22:31:00 CDTNotes: (Same as:MORPhine Sulfate) No Longer Active 03/15/2017 [facility] Zofran 2 mg, 1 mL, Route: IV, Drug form: INJ, Q4H, Dosing Weight 100, kg, PRN as needed for nausea/vomiting, Start date: 03/14/17 22:32:00 CDT, Duration: 30 day, Stop date: 04/13/17 22:31:00 CDTNotes: (Same as: Zofran) MEDICATION WASTE Product Size: 4 mg Product Wasted: ___ mg No Longer Active 03/15/2017 [facility] Sodium Chloride 0.154 MEQ/ML Injectable Solution 1,000 mL, Rate: 125 ml/hr, Infuse over: 8 hr, Route: IV, Dosing Weight 100 kg, Total Volume: 1,000, Start date: 03/14/17 21:26:00 CDT, Duration: 30 day, Stop date: 04/13/17 21:25:00 CDT No Longer Active 03/15/2017 [facility] Sodium Chloride 0.154 MEQ/ML Injectable Solution 1,000 mL, 1,000 ml/hr, Infuse Over: 1 hr, Route: IV, 1,000, Drug form: INJ, ONCE, Priority: STAT, Dosing Weight 100 kg, Start date: 03/14/17 21:25:00 CDT, Duration: 1 doses or times, Stop date: 03/14/17 21:25:00 CDT Inactive 03/15/2017 [facility] cefepime 1 gm, Route: IVPB, [id number], Dosing Weight 100, kg, (CrCl 10 - 29 ml/min), Start date: 03/14/17 21:00:00 CDT, Duration: 10 day, Stop date: 03/23/17 21:00:00 CDT, ABX Indication: BacteremiaNotes: (Same As: Maxipime) MEDICATION WASTE Product Size: 1000 mg Product Wasted: ___ mg No Longer Active 03/15/2017 [facility] Magnesium Sulfate 2 gm, 50 mL, Route: IVPB, Drug form: INJ, ONCE, Dosing Weight 100, kg, Total dose=2 gm, Start date: 03/14/17 20:44:00 CDT, Duration: 1 doses or times, Stop date: 03/14/17 20:44:00 CDTNotes: WASTE: F/P - Sink; E - Municipal Trash Bin Inactive 03/15/2017 [facility] Vancomycin 1 gm, Route: IV, ONCE, Dosing Weight 100, kg, Start date: 03/14/17 20:41:00 CDT, Stop date: 03/14/17 20:41:00 CDT, ABX Indication: BacteremiaNotes: TIME CRITICAL MEDICATION (Same As: Vancocin) Infus ion rate 2001 mg: infuse over 2.5 hours MEDICATION WASTE Product Size: 1000 mg Product Wasted: ___ mg Inactive 03/15/2017 [facility] Kayexalate 30 gm, 120 mL, Route: PO, Drug form: SUSP, ONCE, Dosing Weight 100, kg, Start date: 03/14/17 20:41:00 CDT, Stop date: 03/14/17 20:41:00 CDTNotes: (sodium polystyrene sulfonate 15 gm/60 ml GARRET) Shake well before use. (Same as: Kayexalate, SPS) Inactive 03/15/2017 [facility] Acetaminophen 650 mg, 2 tab, Route: PO, Drug form: TAB, Q4H, Dosing Weight 100, kg, PRN Pain 1-3/Temp > 100.4 F, Start date: 03/14/17 20:41:00 CDT, Duration: 30 day, Stop date: 04/13/17 20:40:00 CDTNotes: Do not e xceed 4 gm/day. (Same as: Tylenol) No Longer Active 03/15/2017 [facility] Saline Flush 0.9% 10 ml, Route: IVP, Drug Form: INJ, Dosing Weight 100, kg, PRN, PRN Line Flush, Start date: 03/14/17 20:41:00 CDT, Duration: 30 day, Stop date: 04/13/17 20:40:00 CDTNotes: (Same as: BD Posiflush) No Longer Active 03/15/2017 [facility] NS + KCL 20mEq/L 1000ml (Premix) 1,000 mL 1,000 mL, Rate: 75 ml/hr, Infuse over: 13.3 hr, Route: IV, Dosing Weight 100 kg, Total Volume: 1,000, Start date: 03/14/17 20:41:00 CDT, Duration: 30 day, Stop date: 04/13/17 20:40:00 CDTNotes: PREMIX IV - Do Not Alter WASTE: F/P - Sink; E - Municipal Trash Bin Inactive 03/15/2017 [facility] Insulin, Aspart, Human 4 unit, [...] days from Date No Longer Active 03/15/2017 [facility] Glucagon 1 mg, Route: IM, Drug form: PDR/INJ, PRN, Dosing Weight 100, kg, PRN Blood Glucose Results, Start date: 03/14/17 20:39:00 CDT, Duration: 30 day, Stop date: 04/13/17 20:38:00 CDT No Longer Active 03/15/2017 [facility] Dextrose 50% Syringe 12.5 gm, 25 mL, Route: IVP, Drug Form: INJ, Dosing Weight 100, kg, PRN, PRN Blood Glucose Results, Start date: 03/14/17 20:39:00 CDT, Duration: 30 day, Stop date: 04/13/17 20:38:00 CDT No Longer Active 03/15/2017 [facility] Morphine 4 mg, 1 mL, Route: IVP, Drug form: SOLN, ONCE, Dosing Weight 100, kg, Start date: 03/14/17 19:29:00 CDT, Stop date: 03/14/17 19:29:00 CDTNotes: (Same as:MORPhine Sulfate) Inactive 03/15/2017 [facility] Zofran 4 mg, 2 mL, Route: IVP, Drug form: INJ, ONCE, Dosing Weight 100, kg, Start date: 03/14/17 19:29:00 CDT, Stop date: 03/14/17 19:29:00 CDTNotes: (Same as: Zofran) MEDICATION WASTE Product Size: 4 mg Product Wasted: ___ mg Inactive 03/15/2017 [facility] Saline Flush 0.9% 10 mL, Route: IVP, Drug Form: INJ, Dosing Weight 100, kg, PRN, PRN Line Flush, Start date: 03/14/17 16:14:00 CDT, Duration: 30 day, Stop date: 04/13/17 16:13:00 CDTNotes: (Same as: BD Posiflush) No Longer Active 03/14/2017 [facility] 24 HR Metoprolol Tartrate 50 MG Extended Release Tablet [Toprol] 50 mg, 1 tab, Route: PO, Drug form: ERTAB, Daily, Start date: 02/05/17 9:00:00 CDT, Duration: 30 day, Stop date: 03/06/17 9:00:00 CDTNotes: (Same as: Toprol XL) May split tab, but do not crush. Inactive 02/05/2017 [facility] Lisinopril 20 mg, 1 tab, Route: PO, Drug form: TAB, Daily, Dosing Weight 102.909, kg, Start date: 02/05/17 9:00:00 CDT, Duration: 30 day, Stop date: 03/06/17 9:00:00 CDTNotes: (Same as: Prinivil, Zestril) No Longer Active 02/05/2017 [facility] Isosorbide 120 mg, 4 tab, Route: PO, Drug form: ERTAB, QAM, Dosing Weight 102.909, kg, Start date: 02/05/17 9:00:00 CDT, Duration: 30 day, Stop date: 03/06/17 9:00:00 CDTNotes: (Same as:Imdur) "Do Not Crush" Take on empty stomach/ full glass of water. Do not crush Inactive 02/05/2017 [facility] NovoLIN 70/30 65 unit, Route: SUB-Q, QAM, Dosing Weight 102.909, kg, Start date: 02/05/17 9:00:00 CDT, Duration: 30 day, Stop date: 03/06/17 9:00:00 CDT No Longer Active 02/05/2017 [facility] insulin aspart-insulin aspart protamine 65 [...] Expires in days from Date Inactive 02/05/2017 [facility] clopidogrel 75 mg, 1 tab, Route: PO, Drug form: TAB, Daily, Dosing Weight 102.909, kg, Start date: 02/05/17 9:00:00 CDT, Duration: 30 day, Stop date: 03/06/17 9:00:00 CDTNotes: (Same As: Plavix) Inactive 02/05/2017 [facility] aspirin 81 mg tablet, enteric coated 81 mg, 1 tab, Route: PO, Drug form: ECTAB, Daily, Dosing Weight 102.909, kg, Start date: 02/05/17 9:00:00 CDT, Duration: 30 day, Stop date: 03/06/17 9:00:00 CDTNotes: Do not crush or chew. (Same As: Ecotrin) Inactive 02/05/2017 [facility] glimepiride 2 mg, Route: PO, Drug form: TAB, Breakfast, Dosing Weight 102.909, kg, Start date: 02/05/17 8:00:00 CDT, Duration: 30 day, Stop date: 03/06/17 8:00:00 CDT No Longer Active 02/05/2017 [facility] Glucotrol 10 mg, 1 tab, Route: PO, Drug form: TAB, Before Breakfast, Start date: 02/05/17 7:30:00 CDT, Duration: 30 day, Stop date: 03/06/17 7:30:00 CDTNotes: (Same as: Glucotrol) 30 min before meals. Inactive 02/05/2017 [facility] Humulin 70/30 Route: SUB-Q, Drug form: SUSP, Bedtime, Dosing Weight 102.909, kg, Start date: 02/04/17 21:00:00 CDT, Duration: 30 day, Stop date: 03/05/17 21:00:00 CDT Inactive 02/05/2017 [facility] Furosemide 40 MG Oral Tablet 40 mg, 1 tab, Route: PO, Drug form: TAB, Bedtime, Dosing Weight 102.909, kg, Start date: 02/04/17 21:00:00 CDT, Duration: 30 day, Stop date: 03/05/17 21:00:00 CDTNotes: (Same as: Lasix) May cause GI upset. Give with food or milk. Inactive 02/05/2017 [facility] atorvastatin 40 mg, 1 tab, Route: PO, Drug form: TAB, Bedtime, Dosing Weight 102.909, kg, Start date: 02/04/17 21:00:00 CDT, Duration: 30 day, Stop date: 03/05/17 21:00:00 CDTNotes: (Same as: Lipitor) No Longer Active 02/05/2017 [facility] insulin aspart-insulin aspart protamine 45 [...] days from Date No Longer Active 02/05/2017 [facility] 12 HR ranolazine 500 MG Extended Release Tablet [Ranexa] 500 mg, 1 tab, Route: PO, Drug form: TAB, BID, Dosing Weight 102.909, kg, Start date: 02/04/17 17:00:00 CDT, Duration: 30 day, Stop date: 03/06/17 9:00:00 CDTNotes: Same as Ranexa "Do Not Crush" No Longer Active 02/04/2017 [facility] gabapentin 300 mg, 1 cap, Route: PO, Drug form: CAP, TID, Dosing Weight 102.909, kg, Start date: 02/04/17 17:00:00 CDT, Duration: 30 day, Stop date: 03/06/17 13:00:00 CDTNotes: (Same as: Neurontin) No Longer Active 02/04/2017 [facility] Carbidopa 10 MG / Levodopa 100 MG Oral Tablet 1 tab, Route: PO, Drug Form: TAB, Dosing Weight 102.909, kg, BID, Start date: 02/04/17 17:00:00 CDT, Duration: 30 day, Stop date: 03/06/17 9:00:00 CDTNotes: Take with milk or food. (Same As: Sinemet) No Longer Active 02/04/2017 [facility] Hydralazine 10 mg, 0.5 mL, Route: IVP, Drug form: INJ, Q6H, Dosing Weight 102.909, kg, PRN Hypertension, Hydralazine 10mg IV q6h prn SBP>160mmHg., Start date: 02/04/17 16:24:00 CDT, Duration: 30 day, Stop date: 03/06/17 16:23:00 CDTNotes: (Same as: Apresoline) Push over 5 minutes No Longer Active 02/04/2017 [facility] Insulin, Aspart, Human 1 unit, [...] days from Date No Longer Active 02/04/2017 [facility] Glucagon 1 mg, Route: IM, Drug form: PDR/INJ, PRN, Dosing Weight 102.909, kg, PRN Blood Glucose Results, Start date: 02/04/17 13:24:00 CDT, Duration: 30 day, Stop date: 03/06/17 13:23:00 CDT No Longer Active 02/04/2017 [facility] Dextrose 50% Syringe 25 gm, 50 mL, Route: IVP, Drug Form: INJ, Dosing Weight 102.909, kg, PRN, PRN Blood Glucose Results, Start date: 02/04/17 13:24:00 CDT, Duration: 30 day, Stop date: 03/06/17 13:23:00 CDT No Longer Active 02/04/2017 [facility] Nitroglycerin 0.4 MG Sublingual Tablet [Nitrostat] 0.4 mg, 1 tab, Route: SL, Drug form: TAB, Q5Min, Dosing Weight 102.909, kg, PRN Chest Pain, Start date: 02/04/17 13:22:00 CDT, Duration: 30 day, Stop date: 03/06/17 13:21:00 CDT Inactive 02/04/2017 [facility] Saline Flush 0.9% 10 ml, Route: IVP, Drug Form: INJ, Dosing Weight 100, kg, Q12H, Start date: 02/04/17 9:00:00 CDT, Duration: 30 day, Stop date: 03/05/17 21:00:00 CDTNotes: (Same as: BD Posiflush) No Longer Active 02/04/2017 [facility] aspirin 81 mg tablet, enteric coated 81 mg, 1 tab, Route: PO, Drug form: ECTAB, Daily, Dosing Weight 100, kg, Start date: 02/04/17 9:00:00 CDT, Duration: 30 day, Stop date: 03/05/17 9:00:00 CDTNotes: Do not crush or chew. (Same As: Ecotrin) Inactive 02/04/2017 [facility] Carbidopa 10 MG / Levodopa 100 MG Oral Tablet 1 tab, PO, BID, 0 Refill(s) Active 02/04/2017 [facility] gabapentin 900 mg, PO, TID, 0 Refill(s) No Longer Active 02/04/2017 [facility] isosorbide mononitrate 120 mg oral tablet, extended release 120 mg=1 tab, PO, QAM, # 30 tab, 0 Refill(s) Active 02/04/2017 [facility] insulin isophane-insulin regular human recombinant 70 units-30 units/mL subcutaneous injection 45 unit, SUB-Q, Bedtime, 0 Refill(s) Active 02/04/2017 [facility] 12 HR ranolazine 500 MG Extended Release Tablet [Ranexa] 500 mg=1 tab, PO, BID, # 60 tab, 0 Refill(s) Active 02/04/2017 [facility] metoprolol extended release 25 mg, PO, Daily, 0 Refill(s) No Longer Active 02/04/2017 [facility] Saline Flush 0.9% 10 ml, Route: IVP, Drug Form: INJ, Dosing Weight 100, kg, PRN, PRN Line Flush, Start date: 02/04/17 3:38:00 CDT, Duration: 30 day, Stop date: 03/06/17 3:37:00 CDTNotes: (Same as: BD Posiflush) No Longer Active 02/04/2017 [facility] Sodium Chloride 0.154 MEQ/ML Injectable Solution 1,000 mL, Rate: 75 ml/hr, Infuse over: 13.3 hr, Route: IV, Dosing Weight 100 kg, Total Volume: 1,000, Start date: 02/04/17 3:38:00 CDT, Duration: 30 day, Stop date: 03/06/17 3:37:00 CDT No Longer Active 02/04/2017 [facility] Ondansetron 4 mg, 1 tab, Route: PO, Drug form: TABDIS, Q8H, Dosing Weight 100, kg, PRN Nausea & Vomiting, Start date: 02/04/17 3:38:00 CDT, Duration: 30 day, Stop date: 03/06/17 3:37:00 CDTNotes: (Same as: Zofran ODT) No Longer Active 02/04/2017 [facility] Nitroglycerin 0.4 mg, 1 tab, Route: SL, Drug form: TAB, Q5Min, Dosing Weight 100, kg, PRN Chest Pain, Start date: 02/04/17 3:38:00 CDT, Duration: 3 doses or times, Stop date: Limited # of timesNotes: (Same as:Tres hathaway, Nitrostat) "Do Not Crush" Sublingual tablet No Longer Active 02/04/2017 [facility] sodium chloride 0.9% 1000 ml INJ 1,000 mL 1,000 mL, Rate: 1,000 ml/hr, Infuse over: 1 hr, Route: IV, Dosing Weight 100 kg, Total Volume: 1,000, Priority: STAT, Start date: 02/04/17 2:13:00 CDT, Duration: 1 doses or times, Stop date: 02/04/17 3:12:00 CDT Inactive 02/04/2017 [facility] Nitroglycerin 0.02 MG/MG Topical Ointment 1 inch, Route: TOP, Dosing Weight 100, kg, ONCE, STAT, Start date: 02/04/17 0:58:00 CDT, Stop date: 02/04/17 0:58:00 CDT Inactive 02/04/2017 [facility] Saline Flush 0.9% 10 mL, Route: IVP, Drug Form: INJ, Dosing Weight 100, kg, PRN, PRN Line Flush, Start date: 02/04/17 0:58:00 CDT, Duration: 30 day, Stop date: 03/06/17 0:57:00 CDTNotes: (Same as: BD Posiflush) No Longer Active 02/04/2017 [facility] Toprol XL 1 tablet Orally Active 50 MG Orally Once a day [place] 11/27/2016 [facility] Toprol XL 1 tablet Orally Active 50 mg Orally Once in am [place] 11/27/2016 [facility] Glimepiride 1 tablet with breakfast or the first main meal of the day Orally Active 2 MG Orally Once a day [place] 08/27/2016 [facility] Ranexa 1 tablet Orally Active 500 MG Orally Twice a day [place] 06/06/2016 [facility] [facility] Glimepiride 1 tablet with breakfast or the first main meal of the day Orally Active 2 MG Orally Once a day [place] 05/03/2016 [facility] Gabapentin 3 capsule Orally Active 300 MG Orally Three times a day Juarez 02/28/2016 [facility] ProAir HFA 2 puffs as needed Inhalation Active 108 (90 Base) MCG/ACT Inhalation every 4 hrs prn Juarez 02/22/2016 [facility] ProAir HFA 2 puffs as needed Inhalation Active 108 (90 Base) MCG/ACT Inhalation every 4 hrs prn Kolby 02/22/2016 [facility] Levaquin 1 tablet Orally Active 500 mg Orally Once a day [place]arez 02/22/2016 [facility] Tessalon Perles 1 capsule as needed Orally Active 100 mg Orally Three times a day prn Juarez 02/22/2016 [facility] Tramadol HCl 1 tablet as needed Orally Active 50 mg Orally QD PRN Juarez 01/25/2016 [facility] Gabapentin as directed Orally Active 300 MG Orally three times a day (tid) Juarez 01/25/2016 [facility] metoprolol extended release 50 mg, 1 tab, Route: PO, Drug form: ERTAB, QPM, Start date: 01/10/16 17:00:00 CDT, Duration: 30 day, Stop date: 02/08/16 17:00:00 CDTNotes: (Same as: Toprol XL) May split tab, but do not crush. No Longer Active 01/10/2016 [facility] NovoLIN 70/30 45 unit, 0.45 [...] Municipal Trash Bin No Longer Active 01/10/2016 [facility] gabapentin 600 MG Oral Tablet 600 mg=1 tab, PO, TID, # 270 tab, 0 Refill(s) Active 01/10/2016 [facility] Nitroglycerin 0.4 MG Sublingual Tablet [Nitrostat] 0.4 mg=1 tab, SL, Q5Min, PRN Chest Pain, # 100 tab, 0 Refill(s) Active 01/10/2016 [facility] lisinopril 20 mg oral tablet 20 mg=1 tab, PO, Daily, # 30 tab, 0 Refill(s) Active 01/10/2016 [facility] glimepiride 2 mg oral tablet 2 mg=1 tab, PO, Breakfast, # 30 tab, 0 Refill(s) Active 01/10/2016 [facility] metoprolol 50 mg oral tablet, extended release 50 mg=1 tab, PO, Daily, # 30 tab, 0 Refill(s) Active 01/10/2016 [facility] Furosemide 40 MG Oral Tablet 40 mg=1 tab, PO, Bedtime, # 30 tab, 0 Refill(s) Active 01/10/2016 [facility] Metformin hydrochloride 1000 MG Oral Tablet 1,000 mg=1 tab, PO, BID-Meals, # 30 tab, 0 Refill(s) Active 01/10/2016 [facility] isosorbide dinitrate 30 mg oral tablet 90 mg=3 tab, PO, Daily, 0 Refill(s) Active 01/10/2016 [facility] Metformin hydrochloride 1000 MG Oral Tablet 1,000 mg, 1 tab, Route: PO, Drug form: TAB, BID, Dosing Weight 104.545, kg, Start date: 01/10/16 9:00:00 CDT, Duration: 30 day, Stop date: 02/08/16 17:00:00 CDTNotes: Same as Glucophage No Longer Active 01/10/2016 [facility] Lasix 40 mg, 1 tab, Route: PO, Drug form: TAB, Daily, Dosing Weight 104.545, kg, Start date: 01/10/16 9:00:00 CDT, Duration: 30 day, Stop date: 02/08/16 9:00:00 CDTNotes: (Same as: Lasix) May cause GI upset. Give with food or milk. No Longer Active 01/10/2016 [facility] Imdur 90 mg, 3 tab, Route: PO, Drug form: ERTAB, QAM, Dosing Weight 104.545, kg, Start date: 01/10/16 9:00:00 CDT, Duration: 30 day, Stop date: 02/08/16 9:00:00 CDTNotes: (Same as:Imdur) "Do Not Crush" Take on empty stomach/ full glass of water. Do not crush No Longer Active 01/10/2016 [facility] pantoprazole 40 mg, Route: IVP, Drug form: INJ, Daily, Dosing Weight 104.545, kg, Start date: 01/10/16 9:00:00 CDT, Duration: 30 day, Stop date: 02/08/16 9:00:00 CDTNotes: (Same as: Protonix) No Longer Active 01/10/2016 [facility] Docusate 100 mg, 1 cap, Route: PO, Drug form: CAP, Q12H, Dosing Weight 104.545, kg, Start date: 01/10/16 9:00:00 CDT, Duration: 30 day, Stop date: 02/08/16 21:00:00 CDTNotes: (Same as: Colace) (Do Not Crush) No Longer Active 01/10/2016 [facility] Aspirin 81 mg, 1 tab, Route: PO, Drug form: CHEWTAB, Daily, Dosing Weight 104.545, kg, Start date: 01/10/16 9:00:00 CDT, Duration: 30 day, Stop date: 02/08/16 9:00:00 CDTNotes: Take with food. No Longer Active 01/10/2016 [facility] clopidogrel 75 mg, 1 tab, Route: PO, Drug form: TAB, Daily, Dosing Weight 104.545, kg, Priority: Routine, Start date: 01/10/16 9:00:00 CDT, Duration: 30 day, Stop date: 02/08/16 9:00:00 CDTNotes: (Same As: Plavix) No Longer Active 01/10/2016 [facility] glimepiride 2 mg, 1 tab, Route: PO, Drug form: TAB, Daily, Dosing Weight 104.545, kg, Start date: 01/10/16 9:00:00 CDT, Duration: 30 day, Stop date: 02/08/16 9:00:00 CDTNotes: (Same as: Amaryl) No Longer Active 01/10/2016 [facility] atorvastatin 40 mg, 1 tab, Route: PO, Drug form: TAB, Daily, Dosing Weight 104.545, kg, Start date: 01/10/16 9:00:00 CDT, Duration: 30 day, Stop date: 02/08/16 9:00:00 CDTNotes: (Same as: Lipitor) No Longer Active 01/10/2016 [facility] gabapentin 600 MG Oral Tablet 600 mg, 2 cap, Route: PO, Drug form: CAP, BID, Dosing Weight 104.545, kg, Start date: 01/10/16 9:00:00 CDT, Duration: 30 day, Stop date: 02/08/16 17:00:00 CDTNotes: (Same as: Neurontin) No Longer Active 01/10/2016 [facility] Lisinopril 20 mg, 1 tab, Route: PO, Drug form: TAB, Daily, Dosing Weight 104.545, kg, Start date: 01/10/16 9:00:00 CDT, Duration: 30 day, Stop date: 02/08/16 9:00:00 CDTNotes: (Same as: Prinivil, Zestril) No Longer Active 01/10/2016 [facility] NovoLIN 70/30 65 unit, 0.65 [...] [facility] Trash Bin No Longer Active 01/10/2016 [facility] Calcium Gluconate 1 gm, 10 mL, Route: IVPB, PRN, Dosing Weight 104.545, kg, PRN Abnormal Lab Result, Start date: 01/10/16 2:34:00 CDT, Duration: 30 day, Stop date: 02/09/16 2:33:00 CDT, FOR ICU USE ONLYNotes: WASTE: F/P - Sink; E - Municipal Trash Bin No Longer Active 01/10/2016 [facility] Magnesium Oxide 800 mg, 2 tab, Route: PO, Drug form: TAB, PRN, Dosing Weight 104.545, kg, PRN Abnormal Lab Result, FOR ICU USE ONLY, Start date: 01/10/16 2:34:00 CDT, Duration: 30 day, Stop date: 02/09/16 2:33:00 CDTNotes: (Same as: Mag-Ox 400) Magnesium oxide [id number] elemental magnesium Dose=____mg magnesium oxide (___mg elemental magnesium) No Longer Active 01/10/2016 [facility] Calcium Carbonate 500 MG Chewable Tablet 1,000 mg, 2 tab, Route: PO, Drug form: CHEWTAB, PRN, Dosing Weight 104.545, kg, PRN Abnormal Lab Result, FOR ICU USE ONLY, Start date: 01/10/16 2:34:00 CDT, Duration: 30 day, Stop date: 02/09/16 2:33:00 CDTNotes: (Same As: Tums) Calcium Carbonate 500 xa=634 mg elemental calcium Dose= mg calcium carbonate ( mg elemental calcium) No Longer Active 01/10/2016 [facility] potassium phosphate + Sodium Chloride [...] over 4 hours No Longer Active 01/10/2016 [facility] Magnesium Sulfate 2 gm, 50 mL, Route: IVPB, Drug form: INJ, PRN, Dosing Weight 104.545, kg, PRN Abnormal Lab Result, Start date: 01/10/16 2:34:00 CDT, Duration: 30 day, Stop date: 02/09/16 2:33:00 CDT, FOR ICU USE ONLYNotes: WASTE: F/P - Sink; E - Municipal Trash Bin No Longer Active 01/10/2016 [facility] Neutra-Phos 2 pkt, Route: PO, Drug Form: PDR/REC, Dosing Weight 104.545, kg, PRN, PRN Abnormal Lab Result, FOR ICU USE ONLY, Start date: 01/10/16 2:34:00 CDT, Duration: 30 day, Stop date: 02/09/16 2:33:00 CDTNotes: (Same as: Neutra-Phos) Each 1.25 gm pkt has 250mg phosphorous. Mix w/2.5oz water and stir. No Longer Active 01/10/2016 [facility] potassium chloride 20 mEq, 1 tab, Route: PO, Drug form: ERTAB, PRN, Dosing Weight 104.545, kg, PRN Abnormal Lab Result, Start date: 01/10/16 2:34:00 CDT, Duration: 30 day, Stop date: 02/09/16 2:33:00 CDT, FOR ICU USE ONLYNotes: (Same as: K-Dur 20) "Do Not Crush" With food and full glass of water No Longer Active 01/10/2016 [facility] sodium phosphate + Sodium Chloride 0.9% IV 250 mL 30 mmol, 10 mL, Route: IVPB, Drug form: INJ, PRN, Dosing Weight 104.545, kg, PRN Abnormal Lab Result, Start date: 01/10/16 2:34:00 CDT, Duration: 30 day, Stop date: 02/09/16 2:33:00 CDT, FOR ICU USE ONLY No Longer Active 01/10/2016 [facility] Insulin, Aspart, Human 2 unit, [...] days from Date No Longer Active 01/10/2016 [facility] Dextrose 50% Syringe 25 gm, 50 mL, Route: IVP, Drug Form: INJ, Dosing Weight 104.545, kg, PRN, PRN Blood Glucose Results, Start date: 01/10/16 1:44:00 CDT, Duration: 30 day, Stop date: 02/09/16 1:43:00 CDT No Longer Active 01/10/2016 [facility] Glucagon 1 mg, Route: IM, Drug form: PDR/INJ, PRN, Dosing Weight 104.545, kg, PRN Blood Glucose Results, Start date: 01/10/16 1:44:00 CDT, Duration: 30 day, Stop date: 02/09/16 1:43:00 CDT No Longer Active 01/10/2016 [facility] Nitroglycerin 0.4 mg, 1 tab, Route: SL, Drug form: TAB, Q5Min, Dosing Weight 104.545, kg, PRN Chest Pain, Start date: 01/10/16 1:26:00 CDT, Duration: 3 doses or times, Stop date: Limited # of timesNotes: (Same as: Nitroquick, Nitrostat) "Do Not Crush" Sublingual tablet No Longer Active 01/10/2016 [facility] Al hydroxide/Mg hydroxide/simethicone 200 mg-200 mg-20 mg/5 mL oral suspension 30 mL, Route: PO, Drug Form: SUSP, Dosing Weight 104.545, kg, Q12H, PRN Indigestion, Start date: 01/10/16 1:26:00 CDT, Duration: 30 day, Stop date: 02/09/16 1:25:00 CDTNotes: (aluminum hydroxide-magnesium hyd- simethicone [id number]/5ml 30 ml ud GARRET) No Longer Active 01/10/2016 [facility] Ondansetron 4 mg, 1 tab, Route: PO, Drug form: TAB, Q8H, Dosing Weight 104.545, kg, PRN Nausea & Vomiting, Start date: 01/10/16 1:26:00 CDT, Duration: 30 day, Stop date: 02/09/16 1:25:00 CDTNotes: (Same as: Zofran) No Longer Active 01/10/2016 [facility] Nitroglycerin 0.4 mg, 1 tab, Route: SL, Drug form: TAB, Q5Min, Dosing Weight 104.545, kg, PRN Chest Pain, Priority: STAT, Start date: 01/09/16 23:15:00 CDT, Duration: 3 doses or times, Stop date: 01/11/16 0:00:00 CDTNotes: (Same as:Nitroquick, Nitrostat) "Do Not Crush" Sublingual tablet No Longer Active 01/10/2016 [facility] Aspirin 324 mg, 4 tab, Route: CHEW, Drug form: CHEWTAB, ONCE, Dosing Weight 104.545, kg, Priority: STAT, Start date: 01/09/16 23:13:00 CDT, Stop date: 01/09/16 23:13:00 CDTNotes: Take with food. Inactive 01/10/2016 [facility] Saline Flush 0.9% 10 mL, Route: IVP, Drug Form: INJ, Dosing Weight 104.545, kg, PRN, PRN Line Flush, Start date: 01/09/16 23:13:00 CDT, Duration: 30 day, Stop date: 02/08/16 23:12:00 CDTNotes: Same as: BD Posiflush Sterile No Longer Active 01/10/2016 [facility] Lisinopril 1 tablet Orally Active 20 MG Orally Once a day Juarez 12/31/2015 [facility] Lisinopril 1 tablet Orally Active 20 MG Orally Once a day Valdez Reddy 12/31/2015 [facility] Toprol XL 1 tablet Orally Active 50 MG Orally Once a day Ghebranious 12/31/2015 [facility] Lasix 1 tablet Orally Active 40 mg Orally Once a day Juarez 12/31/2015 [facility] Novolin 70/30 as directed Subcutaneous Active (70-30) 100 UNIT/ML Subcutaneous 65 units am and 45 units pm Juarez 12/23/2015 [facility] Novolin 70/30 as directed Subcutaneous Active (70-30) 100 UNIT/ML Subcutaneous 65 units am and 45 units pm [place] Reddy 12/23/2015 [facility] Linzess 1 capsule Orally Active 145 MCG Orally Once a day Kolby 12/22/2015 [facility] clopidogrel 75 mg, 1 tab, Route: PO, Drug form: TAB, Daily, Dosing Weight 104.545, kg, Start date: 11/11/15 9:00:00, Duration: 30 day, Stop date: 12/10/15 9:00:00Notes: (Same As: Plavix) No Longer Active 11/11/2015 [facility] Aspirin 325 MG Oral Tablet 325 mg, 1 tab, Route: PO, Drug form: TAB, Daily, Dosing Weight 104.545, kg, Start date: 11/11/15 9:00:00, Duration: 30 day, Stop date: 12/10/15 9:00:00Notes: Take with food. No Longer Active 11/11/2015 [facility] metoprolol extended release 25 mg, 1 tab, Route: PO, Drug form: ERTAB, Daily, Start date: 11/11/15 9:00:00, Duration: 30 day, Stop date: 12/10/15 9:00:00Notes: (Same as: Toprol XL) Do Not Crush No Longer Active 11/11/2015 [facility] Nitroglycerin 0.02 MG/MG Topical Ointment 1 inch, Route: TOP, Drug Form: OINT, Dosing Weight 104.545, kg, TID, Start date: 11/11/15 6:00:00, Duration: 30 day, Stop date: 12/10/15 18:00:00Notes: 1 gram is approximately 1 inch of nitroglycerin ointment (20 mg NTG per gram) (Same as:Nitro-Bid) No Longer Active 11/11/2015 [facility] Insulin, Aspart, Human 8 unit, [...] days from Date No Longer Active 11/11/2015 [facility] Dextrose 50% Syringe 12.5 gm, 25 mL, Route: IVP, Drug Form: INJ, Dosing Weight 104.545, kg, PRN, PRN Blood Glucose Results, Start date: 11/11/15 1:28:00, Duration: 30 day, Stop date: 12/11/15 2:27:00 No Longer Active 11/11/2015 [facility] Glucagon 1 mg, Route: IM, Drug form: PDR/INJ, PRN, Dosing Weight 104.545, kg, PRN Blood Glucose Results, Start date: 11/11/15 1:28:00, Duration: 30 day, Stop date: 12/11/15 2:27:00 No Longer Active 11/11/2015 [facility] Heparin 60 unit/kg Bolus (Heparin Dosing Weight) Route: IVP, PRN, 4,800 unit, 4.8 mL, Drug form: INJ, PRN, Heparin Protocol, Start date: 11/11/15 1:25:00 Stop date: 12/11/15 2:24:00, 30 day No Longer Active 11/11/2015 [facility] heparin additive 25,000 unit [12 unit/kg/hr] + Premix Diluent Dextrose 5% 500 mL 500 mL, Rate: 19.22 ml/hr, Infuse over: 26 hr, Route: IV, Dosing Weight 80.1 kg, Total Volume: 500 mL, Start date: 11/11/15 1:25:00, Duration: 30 day, Stop date: 12/11/15 1:24:00 No Longer Active 11/11/2015 [facility] Heparin 30 unit/kg Bolus (Heparin Dosing Weight) Route: IVP, PRN, 2,400 unit, 2.4 mL, Drug form: INJ, PRN, Heparin Protocol, Start date: 11/11/15 1:25:00 Stop date: 12/11/15 2:24:00, 30 day No Longer Active 11/11/2015 [facility] Nitroglycerin 0.4 mg, 1 tab, Route: SL, Drug form: TAB, Q5Min, Dosing Weight 104.545, kg, PRN Chest Pain, Start date: 11/11/15 1:25:00, Duration: 3 doses or times, Stop date: Limited # of timesNotes: (Same as:Nitroqu ick, Nitrostat) "Do Not Crush" Sublingual tablet No Longer Active 11/11/2015 [facility] Sodium Chloride 0.154 MEQ/ML Injectable Solution 1,000 mL, Rate: 75 ml/hr, Infuse over: 13.3 hr, Route: IV, Dosing Weight 104.545 kg, Total Volume: 1,000, Start date: 11/11/15 1:25:00, Duration: 12 hr, Stop date: 11/11/15 13:24:00 Inactive 11/11/2015 [facility] Ambien 5 mg, 1 tab, Route: PO, Drug form: TAB, Bedtime, Dosing Weight 104.545, kg, PRN Insomnia, Start date: 11/11/15 1:17:00, Duration: 30 day, Stop date: 12/11/15 1:16:00Notes: (Same As: Ambien) No Longer Active 11/11/2015 [facility] NovoLIN 70/30 45 unit, SUB-Q, QPM, 0 Refill(s) Active 11/11/2015 [facility] Aspirin 81 MG Enteric Coated Tablet 81 mg=1 tab, PO, Daily, 3 Refill(s) Active 11/11/2015 [facility] Heparin - one time bolus for ACS 4,000 unit, 4 mL, Route: IV, Drug form: INJ, ONCE, Dosing Weight 104.545, kg, Priority: STAT, Start date: 11/10/15 22:05:00, Stop date: 11/10/15 22:05:00 No Longer Active 11/11/2015 [facility] heparin additive 25,000 unit [12 unit/kg/hr] + Premix Diluent Dextrose 5% 500 mL 500 mL, Rate: 19.22 ml/hr, Infuse over: 26 hr, Route: IV, Dosing Weight 80.1 kg, Total Volume: 500 mL, Start date: 11/10/15 22:05:00, Duration: 30 day, Stop date: 12/10/15 22:04:00 No Longer Active 11/11/2015 [facility] Heparin 30 unit/kg Bolus (Heparin Dosing Weight) Route: IVP, PRN, 2,400 unit, 2.4 mL, Drug form: INJ, PRN, Heparin Protocol, Start date: 11/10/15 22:05:00 Stop date: 12/10/15 23:04:00, 30 day No Longer Active 11/11/2015 [facility] Heparin 60 unit/kg Bolus (Heparin Dosing Weight) Route: IVP, PRN, 4,800 unit, 4.8 mL, Drug form: INJ, PRN, Heparin Protocol, Start date: 11/10/15 22:05:00 Stop date: 12/10/15 23:04:00, 30 day No Longer Active 11/11/2015 [facility] metoprolol tartrate 25 mg, 1 tab, Route: PO, Drug form: TAB, ONCE, Dosing Weight 104.545, kg, Priority: STAT, Start date: 11/10/15 22:04:00, Stop date: 11/10/15 22:04:00Notes: (Same as: Lopressor) Inactive 11/11/2015 [facility] Nitroglycerin 0.02 MG/MG Topical Ointment 1 inch, Route: TOP, Drug Form: OINT, Dosing Weight 104.545, kg, ONCE, STAT, Start date: 11/10/15 21:20:00, Stop date: 11/10/15 21:20:00Notes: 1 gram is approximately 1 inch of nitroglycerin ointment (20 mg NTG per gram) (Same as:Nitro-Bid) Inactive 11/11/2015 [facility] Aspirin 243 mg, 3 tab, Route: CHEW, Drug form: CHEWTAB, ONCE, Dosing Weight 104.545, kg, Priority: STAT, Start date: 11/10/15 19:38:00, Stop date: 11/10/15 19:38:00Notes: Take with food. Inactive 11/11/2015 [facility] Nitroglycerin 0.4 mg, 1 tab, Route: SL, Drug form: TAB, Q5Min, Dosing Weight 104.545, kg, PRN Chest Pain, Priority: STAT, Start date: 11/10/15 19:38:00, Duration: 3 doses or times, Stop date: Limited # of timesNot es: (Same as:Nitroquick, Nitrostat) "Do Not Crush" Sublingual tablet No Longer Active 11/11/2015 [facility] Saline Flush 0.9% 10 mL, Route: IVP, Drug Form: INJ, Dosing Weight 97.727, kg, PRN, PRN Line Flush, Start date: 11/10/15 15:17:00, Duration: 30 day, Stop date: 12/10/15 16:16:00Notes: (Same as: BD Posiflush) No Longer Active 11/10/2015 [facility] Lisinopril-Hydrochlorothiazide 1 tablet Orally No Longer Active 20-12.5 MG Orally Once a day Ghebranious 11/07/2015 [facility] Glimepiride 1 tablet with breakfast or the first main meal of the day Orally Active 2 MG Orally Once a day (with evening meal) Juarez 11/07/2015 [facility] Imdur 1 tablet Orally Active 30 mg Orally Once a day ebranious 11/02/2015 [facility] Gabapentin 3 CAPSULES orally Active 300 MG orally three times a day (tid) as needed (prn) [facility] Metoprolol Succinate ER 1 tablet Orally Active 25 MG Orally Once a day [facility] Atorvastatin Calcium 1 tablet Orally Active 40 mg Orally Once a day [facility] Furosemide 1 tablet Orally Active 40 MG Orally Once a day [facility] Metformin HCl 1 TABLET WITH MEALS TWICE A DAY ORALLY 90 DAYS NA Active 1000 MG Valdez Reddy [facility] Aspir-81 1 tablet Orally Active 81 MG Orally Once a day [facility] Carbidopa-Levodopa ER 1 tablet Orally Active 25-100 MG Orally twice a day (bid) [place] [facility] Clopidogrel Bisulfate 1 tablet Orally Active 75 mg Orally Once a day [place] [facility] Isosorbide Mononitrate 1 tablet Orally Active 120 MG Orally Once a day [facility] Ranexa 1 tablet Orally Active 500 MG Orally Twice a day [place] [facility] Linzess TAKE 1 CAPSULE BY MOUTH EVERY DAY NA Active 145 [place] [facility] Nitroglycerin 1 tablet Sublingual Active 0.4 MG Sublingual once a day prn Ju[place] [facility] Furosemide 1 tablet Orally Active 40 MG Orally Once a day [place] [facility] Ranexa 1 tablet Orally Active 500 MG Orally Twice a day [facility] Aspir-81 1 tablet Orally Active 81 MG Orally Once a day [facility] Clopidogrel Bisulfate 1 tablet Orally Active 75 mg Orally Once a day [facility] Glimepiride 1 tablet orally Active 2 MG orally twice a day [facility] Metoprolol Succinate ER 1 tablet Orally Active 25 MG Orally qhs [facility] Carbidopa-Levodopa ER 1 tablet Orally Active 25-100 MG Orally twice a day (bid) [facility] Nitroglycerin 1 tablet Sublingual Active 0.4 MG Sublingual once a day prn [facility] Isosorbide Mononitrate 1 tablet Orally Active 120 MG Orally Once a day [facility] Atorvastatin Calcium 1 tablet Orally Active 40 mg Orally Once a day [facility] Zoloft 1 tablet Orally Active 25 MG Orally Once a day [place] [facility] Novolin 70/30 as directed Subcutaneous Active (70-30) 100 UNIT/ML Subcutaneous 68 units q am and 52 units q pm with food [facility] Amlodipine Besylate 1 tablet Orally Active 5 MG Orally Once a day [facility] Metoprolol Succinate ER 1 tablet Orally Active 50 mg Orally Once a day in the am [facility] Linzess TAKE 1 CAPSULE BY MOUTH EVERY DAY NA Active 145 prn [facility] Sertraline HCl 1 tablet orally Active 25 MG orally once a day Kolby [facility] Ranexa 1 tablet Orally Active 1000 Orally Twice a day Kolby [facility] Metoprolol Succinate ER 1 tablet by mouth Active 100 MG by mouth Once a day in the am Kol[place] [facility] Toprol XL 1 tablet Orally Active 50 mg Orally Once in am [place] [facility] Gabapentin 1 tablet by mouth Active 600 MG by mouth twice a day (bid) [facility] Amlodipine Besylate 1 tablet by mouth Active 2.5 MG by mouth Once a day [place] [facility] Metoprolol Succinate ER 1 tablet by mouth Active 50 MG by mouth twice a day (bid) Kolby [facility] Metoprolol Succinate ER 1 tablet by mouth Active 25 MG by mouth at noon Kolby [facility] Glimepiride 1 tablet with breakfast or the first main meal of the day by mouth Active 4 mg by mouth am Kol[place] [facility] Novolin 70/30 as directed Subcutaneous Active (70-30) 100 UNIT/ML Subcutaneous 68 units q am and 52 units q pm with food Kol[place] [facility] Metoprolol Tartrate 1 tablet Orally No Longer Active 50 MG Orally Twice [facility] Novolin R 70/30 units Injection Active 100 UNIT/ML Injection 65 units in the morning, 45 at night [place] [facility] Metformin HCl 1 tablet with meals PO Active 500 mg PO Twice a day [facility] Ramipril 1 tablet Orally Active 10 MG Orally Once a day [facility] [facility] Gabapentin 1 tablet Orally No Longer Active 600 MG Orally three times a day (tid) as needed (prn) [facility] Metformin HCl 1 tablet with meals Orally Active 1000 mg Orally Twice a day [facility] Isosorbide Mononitrate 1 tablet Orally Active 90 mg Orally Once a day Kolby [facility] Isosorbide Dinitrate 1 tablet Orally Active 30 MG Orally Twice a day [facility] Glimepiride 1 tablet Orally Active 2 MG Orally Once a day (MUST SEE DOCTOR BEFORE NEXT REFILL) Kaylynn [facility] Imdur TAKE 1 TABLET BY MOUTH EVERY DAY NA Active 30 MG Ju[facility] Metformin HCl 1 tablet with meals Orally Active 1000 mg Orally Twice a day [facility] Carbidopa-Levodopa ER 1 tablet Orally Active 25-100 MG Orally twice a day (bid) [facility] Allergies, Adverse Reactions, Alerts Substance Category Reaction Severity Reaction type Status Date Reported Comments Source N.K.D.A. Adverse Reaction Info Not Available Adverse Reaction Active 12/04/2018 [facility] Immunizations Immunization Date Given Site Status Last Updated Comments Source FLUZONE HD 65 & [place] [address] 08/14/2016 completed [facility] Results Order Name Results Value Reference [...] should be multiplied by the estimated BMI. [facility] CHEM PANEL POC Creatinine 1.2 0.5 - 1.4 12/07/2017 [facility] CHEM PANEL eGFR 28 03/16/2017 [...] PANEL Globulin 3.0 2.7 - 4.2 03/16/2017 [facility] CHEM PANEL Bili Total 0.6 0.2 - 1.3 03/16/2017 [facility] CHEM PANEL Alk Phos 70 39 - 136 03/16/2017 [facility] CHEM PANEL AST 10 0 - 37 03/16/2017 [facility] CHEM PANEL ALT 11 0 - 65 03/16/2017 [facility] CHEM PANEL Albumin Lvl 2.8 3.5 - 5.0 03/16/2017 [facility] CHEM PANEL Total Protein 5.8 6.4 - 8.4 03/16/2017 [facility] CHEM PANEL B/C Ratio 19 6 - 25 03/16/2017 [facility] CHEM PANEL Calcium Lvl 7.7 8.5 - 10.5 03/16/2017 [facility] CHEM PANEL Potassium Lvl 4.8 3.5 - 5.1 03/16/2017 [facility] CHEM PANEL Chloride Lvl 118 95 - 109 03/16/2017 [facility] CHEM PANEL CO2 23 24 - 32 03/16/2017 [facility] CHEM PANEL Sodium Lvl 144 135 - 145 03/16/2017 [facility] CHEM PANEL Creatinine Lvl 2.30 0.50 - 1.40 03/16/2017 [facility] CHEM PANEL Glucose Lvl 126 70 - 99 03/16/2017 [facility] CHEM PANEL AGAP 7.8 10.0 - 20.0 03/16/2017 [facility] CHEM PANEL BUN 44 7 - 22 03/16/2017 [facility] HEMATOLOGY WBC 8.2 3.7 - 10.4 03/16/2017 [facility] HEMATOLOGY RBC 3.48 4.70 - 6.10 03/16/2017 [facility] HEMATOLOGY Hgb 10.6 14.0 - 18.0 03/16/2017 [facility] HEMATOLOGY Hct 32.6 42.0 - 54.0 03/16/2017 [facility] HEMATOLOGY MCHC 32.7 32.0 - 36.0 03/16/2017 [facility] HEMATOLOGY RDW 14.4 11.5 - 14.5 03/16/2017 [facility] HEMATOLOGY MPV 9.7 7.4 - 10.4 03/16/2017 [facility] HEMATOLOGY Platelet 140 133 - 450 03/16/2017 [facility] HEMATOLOGY MCH 30.6 27.0 - 31.0 03/16/2017 [facility] HEMATOLOGY MCV 93.5 80.0 - 94.0 03/16/2017 [facility] URINE AND STOOL UA Color Ltyellow 03/15/2017 [facility] URINE AND STOOL UA Urobilinogen <=1.0 mg/dL 0.1 - 1.0 03/15/2017 [facility] URINE AND STOOL UA Hyal Cast 3 0 - 2 03/15/2017 [facility] URINE AND STOOL UA Bacteria Occasional /HPF None Seen /HPF 03/15/2017 [facility] URINE AND STOOL UA RBC 40 0 - 2 03/15/2017 [facility] URINE AND STOOL UA Turbidity Clear (03/15/17 2:49 PM) Clear 03/15/2017 [facility] URINE AND STOOL UA pH 5.0 5.0 - 8.0 03/15/2017 [facility] URINE AND STOOL UA Spec Grav 1.011 <=1.030 03/15/2017 [facility] URINE AND STOOL UA WBC 7 0 - 5 03/15/2017 [facility] URINE AND STOOL UA Sq Epi Occasional /LPF Few /LPF 03/15/2017 [facility] URINE AND STOOL UA Leuk Est Trace *ABN* (03/15/17 2:49 PM) Negative 03/15/2017 [facility] URINE AND STOOL UA Nitrite Negative (03/15/17 2:49 PM) Negative 03/15/2017 [facility] URINE AND STOOL UA Blood Large *ABN* (03/15/17 2:49 PM) Negative 03/15/2017 [facility] URINE AND STOOL UA Bili Negative *NA* (03/15/17 2:49 PM) Negative 03/15/2017 [facility] URINE AND STOOL UA Glucose Negative mg/dL Negative mg/dL 03/15/2017 [facility] URINE AND STOOL UA Protein Negative mg/dL Negative mg/dL 03/15/2017 [facility] URINE AND STOOL UA Ketones Negative mg/dL Negative mg/dL 03/15/2017 [facility] URINE CHEM U Sodium 27 03/15/2017 [facility] URINE CHEM U Eos None Seen (03/15/17 2:49 PM) None Seen 03/15/2017 [facility] URINE CHEM U Alb/Crea 40.4 <=30.0 mcg/mg creat 03/15/2017 [facility] URINE CHEM U Microalb 60.6 [...] Total Protein 6.2 6.4 - 8.4 03/15/2017 [facility] CHEM PANEL B/C Ratio 16 6 - 25 03/15/2017 [facility] CHEM PANEL Calcium Lvl 7.7 8.5 - 10.5 03/15/2017 [facility] CHEM PANEL ALT 17 0 - 65 03/15/2017 [facility] CHEM PANEL A/G Ratio 1.1 0.7 - 1.6 03/15/2017 [facility] CHEM PANEL Globulin 2.9 2.7 - 4.2 03/15/2017 [facility] CHEM PANEL Bili Total 0.4 0.2 - 1.3 03/15/2017 [facility] CHEM PANEL Alk Phos 79 39 - 136 03/15/2017 [facility] CHEM PANEL AST 10 0 - 37 03/15/2017 [facility] CHEM PANEL Lipase Lvl 656 73 - 393 03/15/2017 [facility] URINE AND STOOL UA Color Diana 03/15/2017 [facility] URINE AND STOOL UA Urobilinogen <=1.0 mg/dL 0.1 - 1.0 03/15/2017 [facility] URINE AND STOOL UA [place] Yeast Occasional /HPF None Seen /HPF 03/15/2017 [facility] URINE AND STOOL UA RBC 1 0 - 2 03/15/2017 [facility] URINE AND STOOL UA Bacteria Occasional /HPF None Seen /HPF 03/15/2017 [facility] URINE AND STOOL UA WBC 4 0 - 5 03/15/2017 [facility] URINE AND STOOL UA Hyal Cast 15 0 - 2 03/15/2017 [facility] URINE AND STOOL UA Leuk [...] UA Protein 30 mg/dL Negative mg/dL 03/15/2017 [facility] URINE AND STOOL UA pH 5.0 5.0 - 8.0 03/15/2017 [facility] URINE AND STOOL UA Spec Grav 1.018 <=1.030 03/15/2017 [facility] URINE AND STOOL UA Turbidity Clear (03/15/17 12:45 AM) Clear 03/15/2017 [facility] CARDIAC ENZYMES CK MB Index 0.7 0.0 - 2.5 03/15/2017 [facility] CARDIAC ENZYMES BNP 27 <=100 pg/mL 03/15/2017 [facility] CARDIAC ENZYMES Troponin-I <0.02 0.00 - 0.40 03/15/2017 [facility] CARDIAC ENZYMES CK MB 1.4 0.5 - 3.6 03/15/2017 [facility] CARDIAC ENZYMES Total CK 197 12 - 191 03/15/2017 [facility] CHEM PANEL Magnesium Lvl 1.7 1.8 - 2.4 03/15/2017 [facility] CHEM PANEL Lipase Lvl 691 73 - 393 03/15/2017 [facility] CHEM PANEL eGFR 11 03/15/2017 [...] should be multiplied by the estimated BMI. [facility] CHEM PANEL A/G Ratio 1.0 0.7 - 1.6 03/15/2017 [facility] CHEM PANEL Globulin 4.0 2.7 - 4.2 03/15/2017 [facility] CHEM PANEL B/C Ratio 14 6 - 25 03/15/2017 [facility] CHEM PANEL Alk Phos 94 39 - 136 03/15/2017 [facility] CHEM PANEL ALT 21 0 [...] HEMATOLOGY Eosinophils 0.9 0.0 - 4.0 03/15/2017 [facility] HEMATOLOGY Basophils 0.3 0.0 - 1.0 03/15/2017 [facility] HEMATOLOGY Segs-Bands # 18.2 1.5 - 8.1 03/15/2017 [facility] HEMATOLOGY Lymphocytes # 1.6 1.0 - 5.5 03/15/2017 [facility] HEMATOLOGY Monocytes 5.8 2.0 - 12.0 03/15/2017 [facility] HEMATOLOGY Segs 85.3 45.0 - 75.0 03/15/2017 [facility] HEMATOLOGY Lymphocytes 7.7 20.0 - 40.0 03/15/2017 [facility] HEMATOLOGY Monocytes # 1.2 0.0 - 0.8 03/15/2017 [facility] HEMATOLOGY Eosinophils # 0.2 0.0 - 0.5 03/15/2017 [facility] HEMATOLOGY Basophils # 0.1 0.0 - 0.2 03/15/2017 [facility] HEMATOLOGY RDW 14.3 11.5 - 14.5 03/15/2017 [facility] HEMATOLOGY Platelet 214 133 - 450 03/15/2017 [facility] HEMATOLOGY MCHC 32.0 32.0 - 36.0 03/15/2017 [facility] HEMATOLOGY MCH 29.9 27.0 - 31.0 03/15/2017 [facility] HEMATOLOGY MPV 10.2 7.4 - 10.4 03/15/2017 [facility] HEMATOLOGY RBC 4.24 4.70 - 6.10 03/15/2017 [facility] HEMATOLOGY Hgb 12.7 14.0 - 18.0 03/15/2017 [facility] Hct 39.7 42.0 - 54.0 03/15/2017 [facility] HEMATOLOGY MCV 93.5 80.0 - 94.0 03/15/2017 [facility] HEMATOLOGY WBC 21.3 3.7 - 10.4 03/15/2017 [facility] HEMATOLOGY PTT 33.2 22.9 - 35.8 03/15/2017 [facility] HEMATOLOGY PT 13.7 12.0 - 14.7 03/15/2017 [facility] HEMATOLOGY INR 1.03 0.85 - 1.17 03/15/2017 [facility] CHEM PANEL eGFR 83 02/05/2017 [...] should be multiplied by the estimated BMI. [facility] CHEM PANEL Creatinine Lvl 0.93 0.50 - 1.40 02/05/2017 [facility] CHEM PANEL Sodium Lvl 144 135 - 145 02/05/2017 [facility] CHEM PANEL Potassium Lvl 4.4 3.5 - 5.1 02/05/2017 [facility] CHEM PANEL Glucose Lvl 67 70 - 99 02/05/2017 [facility] CHEM PANEL BUN 20 7 - 22 02/05/2017 [facility] CHEM PANEL Calcium Lvl 8.5 8.5 - 10.5 02/05/2017 [facility] CHEM PANEL Chloride Lvl 111 95 - 109 02/05/2017 [facility] CHEM PANEL CO2 28 24 - 32 02/05/2017 [facility] CHEM PANEL AGAP 9.4 10.0 - 20.0 02/05/2017 [facility] HEMATOLOGY RDW 13.4 11.5 - 14.5 02/05/2017 [facility] HEMATOLOGY Platelet 151 133 - 450 02/05/2017 [facility] HEMATOLOGY MPV 9.7 7.4 - 10.4 02/05/2017 [facility] HEMATOLOGY MCH 30.0 27.0 - 31.0 02/05/2017 [facility] MCHC 32.9 32.0 - 36.0 02/05/2017 [facility] HEMATOLOGY WBC 6.9 3.7 - 10.4 02/05/2017 [facility] HEMATOLOGY RBC 3.46 4.70 - 6.10 02/05/2017 [facility] HEMATOLOGY Hgb 10.4 14.0 - 18.0 02/05/2017 [facility] HEMATOLOGY Hct 31.5 42.0 - 54.0 02/05/2017 [facility] HEMATOLOGY MCV 91.2 80.0 - 94.0 02/05/2017 [facility] HEMATOLOGY Lymphocytes # 2.1 1.0 - 5.5 02/05/2017 [facility] HEMATOLOGY Segs-Bands # 3.9 1.5 - 8.1 02/05/2017 [facility] HEMATOLOGY Monocytes # 0.5 0.0 - 0.8 02/05/2017 [facility] HEMATOLOGY Basophils 0.8 0.0 - 1.0 02/05/2017 [facility] HEMATOLOGY Basophils # 0.1 0.0 - 0.2 02/05/2017 [facility] HEMATOLOGY Eosinophils 5.3 0.0 - 4.0 02/05/2017 [facility] HEMATOLOGY Eosinophils # 0.4 0.0 - 0.5 02/05/2017 [facility] HEMATOLOGY Monocytes 7.3 2.0 - 12.0 02/05/2017 [facility] HEMATOLOGY Lymphocytes 30.8 20.0 - 40.0 02/05/2017 [facility] HEMATOLOGY Segs 55.8 45.0 - 75.0 02/05/2017 [facility] CARDIAC ENZYMES Troponin-I <0.02 0.00 - 0.40 02/04/2017 [facility] CARDIAC ENZYMES Troponin-I <0.02 0.00 - 0.40 02/04/2017 [facility] URINE AND STOOL UA Bacteria [...] Turbidity Clear (02/04/17 3:57 AM) Clear 02/04/2017 [facility] CARDIAC ENZYMES BNP 51 <=100 pg/mL 02/04/2017 [facility] CARDIAC ENZYMES Troponin-I <0.02 0.00 - 0.40 02/04/2017 [facility] CARDIAC ENZYMES CK MB 1.8 0.5 - 3.6 02/04/2017 [facility] CARDIAC ENZYMES Total CK 224 12 - 191 02/04/2017 [facility] CARDIAC ENZYMES CK MB Index 0.8 0.0 - 2.5 02/04/2017 [facility] ELECTROLYTES Sodium Lvl 144 135 - 145 02/04/2017 [facility] ELECTROLYTES Creatinine Lvl 1.60 0.50 - 1.40 02/04/2017 [facility] ELECTROLYTES BUN 42 7 - 22 02/04/2017 [facility] ELECTROLYTES Glucose Lvl 184 70 - 99 02/04/2017 [facility] ELECTROLYTES eGFR 43 02/04/2017 Result [...] should be multiplied by the estimated BMI. [facility] ELECTROLYTES Total Protein 6.9 6.4 - 8.4 02/04/2017 [facility] ELECTROLYTES Calcium Lvl 9.0 8.5 - 10.5 02/04/2017 [facility] ELECTROLYTES CO2 29 24 - 32 02/04/2017 [facility] ELECTROLYTES Chloride Lvl 108 95 - 109 02/04/2017 [facility] ELECTROLYTES Potassium Lvl 4.7 3.5 - 5.1 02/04/2017 [facility] ELECTROLYTES Bili Total 0.2 0.2 - 1.3 02/04/2017 [facility] ELECTROLYTES Alk Phos 100 39 - 136 02/04/2017 [facility] ELECTROLYTES AST 12 0 - 37 02/04/2017 [facility] ELECTROLYTES ALT 16 0 - 65 02/04/2017 [facility] ELECTROLYTES Albumin Lvl 3.5 3.5 - 5.0 02/04/2017 [facility] ELECTROLYTES A/G Ratio 1.0 0.7 - 1.6 02/04/2017 [facility] ELECTROLYTES Globulin 3.4 2.7 - 4.2 02/04/2017 [facility] ELECTROLYTES B/C Ratio 26 6 - 25 02/04/2017 [facility] ELECTROLYTES AGAP 11.7 10.0 - 20.0 02/04/2017 [facility] HEMATOLOGY INR 0.90 0.85 - 1.17 02/04/2017 [facility] HEMATOLOGY PT 12.3 12.0 - 14.7 02/04/2017 [facility] HEMATOLOGY PTT 35.9 22.9 - 35.8 02/04/2017 [facility] MPV 10.6 7.4 - 10.4 02/04/2017 [facility] HEMATOLOGY WBC 8.5 3.7 - 10.4 02/04/2017 [facility] HEMATOLOGY Hct 35.1 42.0 - 54.0 02/04/2017 [facility] MCV 91.7 80.0 - 94.0 02/04/2017 [facility] MCH 30.7 27.0 - 31.0 02/04/2017 [facility] RBC 3.82 4.70 - 6.10 02/04/2017 [facility] Hgb 11.7 14.0 - 18.0 02/04/2017 [facility] MCHC 33.4 32.0 - 36.0 02/04/2017 [facility] RDW 13.5 11.5 - 14.5 02/04/2017 [facility] Platelet 171 133 - 450 02/04/2017 [facility] Eosinophils # 0.3 0.0 - 0.5 02/04/2017 [facility] Monocytes # 0.5 0.0 - 0.8 02/04/2017 [facility] HEMATOLOGY Segs-Bands # 5.2 1.5 - 8.1 02/04/2017 [facility] Basophils # 0.1 0.0 - 0.2 02/04/2017 [facility] Basophils 0.7 0.0 - 1.0 02/04/2017 [facility] Lymphocytes # 2.3 1.0 - 5.5 02/04/2017 [facility] Monocytes 6.4 2.0 - 12.0 02/04/2017 [facility] Eosinophils 3.9 0.0 - 4.0 02/04/2017 [facility] Lymphocytes 27.6 20.0 - 40.0 02/04/2017 [facility] HEMATOLOGY Segs 61.4 45.0 - 75.0 02/04/2017 [facility] CHEM PANEL Magnesium Lvl 1.9 1.8 - 2.4 01/11/2016 [facility] CHEM PANEL Phosphorus 3.6 2.5 - 4.5 01/11/2016 [facility] ELECTROLYTES AGAP 15.0 10.0 - 20.0 01/11/2016 [facility] ELECTROLYTES eGFR 91 01/11/2016 Result [...] should be multiplied by the estimated BMI. [facility] ELECTROLYTES Sodium Lvl 143 135 - 145 01/11/2016 [facility] ELECTROLYTES Potassium Lvl 4.0 3.5 - 5.1 01/11/2016 [facility] ELECTROLYTES Chloride Lvl 108 95 - 109 01/11/2016 [facility] ELECTROLYTES CO2 24 24 - 32 01/11/2016 [facility] ELECTROLYTES Calcium Lvl 8.7 8.5 - 10.5 01/11/2016 [facility] ELECTROLYTES BUN 23 7 - 22 01/11/2016 [facility] ELECTROLYTES Creatinine Lvl 0.80 0.50 - 1.40 01/11/2016 [facility] ELECTROLYTES Glucose Lvl 72 70 - 99 01/11/2016 [facility] HEMATOLOGY Eosinophils # 0.3 0.0 - 0.5 01/11/2016 [facility] HEMATOLOGY Basophils # 0.1 0.0 - 0.2 01/11/2016 [facility] HEMATOLOGY Segs 59.7 45.0 - 75.0 01/11/2016 [facility] HEMATOLOGY Lymphocytes 27.5 20.0 - 40.0 01/11/2016 [facility] HEMATOLOGY Monocytes 7.6 2.0 - 12.0 01/11/2016 [facility] HEMATOLOGY Eosinophils 4.5 0.0 - 4.0 01/11/2016 [facility] HEMATOLOGY Basophils 0.7 0.0 - 1.0 01/11/2016 [facility] HEMATOLOGY Monocytes # 0.6 0.0 - 0.8 01/11/2016 [facility] HEMATOLOGY Segs-Bands # 4.4 1.5 - 8.1 01/11/2016 [facility] HEMATOLOGY Lymphocytes # 2.0 1.0 - 5.5 01/11/2016 [facility] HEMATOLOGY RBC 4.10 4.70 - 6.10 01/11/2016 [facility] HEMATOLOGY WBC 7.4 3.7 - 10.4 01/11/2016 [facility] HEMATOLOGY Hct 37.2 42.0 - 54.0 01/11/2016 [facility] HEMATOLOGY MCHC 33.3 32.0 - 36.0 01/11/2016 [facility] HEMATOLOGY MCH 30.2 27.0 - 31.0 01/11/2016 [facility] HEMATOLOGY RDW 12.8 11.5 - 14.5 01/11/2016 [facility] HEMATOLOGY MCV 90.8 80.0 - 94.0 01/11/2016 [facility] HEMATOLOGY Platelet 153 133 - 450 01/11/2016 [facility] HEMATOLOGY MPV 10.2 7.4 - 10.4 01/11/2016 [facility] HEMATOLOGY Hgb 12.4 14.0 - 18.0 01/11/2016 [facility] DRUG SCREEN U Benzodia Scr Negative *NA* (01/10/16 10:01 AM) Negative 01/10/2016 [facility] DRUG SCREEN U Cocaine Scr Negative *NA* (01/10/16 10:01 AM) Negative 01/10/2016 [facility] DRUG SCREEN UDS Note See Note *NA* (01/10/16 10:01 AM) 01/10/2016 [facility] DRUG SCREEN U Propoxyph Scr Negative *NA* (01/10/16 10:01 AM) Negative 01/10/2016 [facility] DRUG SCREEN U Cannab Scr Negative *NA* (01/10/16 10:01 AM) Negative 01/10/2016 [facility] DRUG SCREEN U Opiate Scr Negative *NA* (01/10/16 10:01 AM) Negative 01/10/2016 [facility] DRUG SCREEN U Phencyc Scr Negative *NA* (01/10/16 10:01 AM) Negative 01/10/2016 [facility] DRUG SCREEN U Methadone Scr Negative *NA* (01/10/16 10:01 AM) Negative 01/10/2016 [facility] DRUG SCREEN U Amph Scr Negative *NA* (01/10/16 10:01 AM) Negative 01/10/2016 [facility] DRUG SCREEN U Kristin Scr Negative *NA* (01/10/16 10:01 AM) Negative 01/10/2016 [facility] URINE AND STOOL UA Sq Epi None Seen (01/10/16 5:27 AM) Few 01/10/2016 [facility] URINE AND STOOL Micro? Performed (01/10/16 5:27 AM) 01/10/2016 [facility] URINE AND STOOL UA WBC None Seen (01/10/16 5:27 AM) None Seen 01/10/2016 [facility] URINE AND STOOL UA RBC None Seen (01/10/16 5:27 AM) 0 - 2 01/10/2016 [facility] URINE AND STOOL UA Blood Negative (01/10/16 5:27 AM) Negative 01/10/2016 [facility] URINE AND STOOL UA Bili Negative *NA* (01/10/16 5:27 AM) Negative 01/10/2016 [facility] URINE AND STOOL UA Urobilinogen 0.2 0.1 - 1.0 01/10/2016 [facility] URINE AND STOOL UA Nitrite Negative (01/10/16 5:27 AM) Negative 01/10/2016 [facility] URINE AND STOOL UA Leuk Est Negative (01/10/16 5:27 AM) Negative 01/10/2016 [facility] URINE AND STOOL UA Spec Grav 1.015 <=1.030 01/10/2016 [facility] URINE AND STOOL UA Color Yellow *NA* (01/10/16 5:27 AM) Yellow 01/10/2016 [facility] URINE AND STOOL UA Turbidity Clear (01/10/16 5:27 AM) Clear 01/10/2016 [facility] URINE AND STOOL UA pH 5.5 5.0 - 8.0 01/10/2016 [facility] URINE AND STOOL UA Glucose Negative mg/dL Negative mg/dL 01/10/2016 [facility] URINE AND STOOL UA Protein Negative mg/dL Negative mg/dL 01/10/2016 [facility] URINE AND STOOL UA Ketones Negative mg/dL Negative mg/dL 01/10/2016 [facility] CARDIAC ENZYMES BNP 10 <=100 pg/mL 01/10/2016 [facility] CHEM PANEL Magnesium Lvl 1.7 1.8 - 2.4 01/10/2016 [facility] CHEM PANEL Bili Indirect 0.1 0.0 - 1.0 01/10/2016 [facility] CHEM PANEL Bili Total 0.2 0.2 - 1.3 01/10/2016 [facility] CHEM PANEL Bili Direct 0.1 0.0 - 0.3 01/10/2016 [facility] CHEM PANEL Phosphorus 4.2 2.5 - 4.5 01/10/2016 [facility] CHEM PANEL eGFR 78 01/10/2016 [...] should be multiplied by the estimated BMI. [facility] CHEM PANEL Calcium Lvl 8.6 8.5 - 10.5 01/10/2016 [facility] CHEM PANEL CO2 24 24 - 32 01/10/2016 [facility] CHEM PANEL Chloride Lvl 108 95 - 109 01/10/2016 [facility] CHEM PANEL BUN 32 7 - 22 01/10/2016 [facility] CHEM PANEL Glucose Lvl 88 70 - 99 01/10/2016 [facility] CHEM PANEL Potassium Lvl 4.2 3.5 - 5.1 01/10/2016 [facility] CHEM PANEL Sodium Lvl 142 135 - 145 01/10/2016 [facility] CHEM PANEL Creatinine Lvl 0.98 0.50 - 1.40 01/10/2016 [facility] CHEM PANEL AGAP 14.2 10.0 - 20.0 01/10/2016 [facility] HEMATOLOGY Hgb 11.2 14.0 - 18.0 01/10/2016 [facility] LIPIDS CHD Risk 3.32 4.00 - 7.30 01/10/2016 [facility] LIPIDS VLDL 21 01/10/2016 [facility] LIPIDS LDL (Calculated) 67 <=99 mg/dL 01/10/2016 [facility] LIPIDS Trig 107 <=149 mg/dL 01/10/2016 [facility] LIPIDS Chol 126 <=199 mg/dL 01/10/2016 [facility] LIPIDS HDL 38 >=61 mg/dL 01/10/2016 [facility] SPECIAL CHEMISTRY Hgb A1C 7.2 <=5.6 % 01/10/2016 [facility] CARDIAC ENZYMES Total CK 243 12 - 191 01/10/2016 [facility] CARDIAC ENZYMES Troponin-I <0.02 0.00 - 0.40 01/10/2016 [facility] CARDIAC ENZYMES CK MB Index 0.5 0.0 - 2.5 01/10/2016 [facility] CARDIAC ENZYMES CK MB 1.1 0.5 - 3.6 01/10/2016 [facility] CHEM PANEL ALT 25 0 - 65 01/10/2016 [facility] CHEM PANEL Alk Phos 62 39 - 136 01/10/2016 [facility] CHEM PANEL AST 17 0 - 37 01/10/2016 [facility] CHEM PANEL Total Protein 6.4 6.4 - 8.4 01/10/2016 [facility] CHEM PANEL Albumin Lvl 3.4 3.5 - 5.0 01/10/2016 [facility] CHEM PANEL Globulin 3.0 2.0 - 4.0 01/10/2016 [facility] [facility]EL A/G Ratio 1.1 0.7 - 1.6 01/10/2016 [facility] HEMATOLOGY INR 0.95 0.85 - 1.17 01/10/2016 [facility] HEMATOLOGY PT 13.0 12.0 - 14.7 01/10/2016 [facility] HEMATOLOGY PTT 35.9 22.9 - 35.8 01/10/2016 [facility] CARDIAC ENZYMES Troponin-I <0.02 0.00 - 0.40 01/10/2016 [facility] CARDIAC ENZYMES CK MB 1.0 0.5 - 3.6 01/10/2016 [facility] CARDIAC ENZYMES Total CK 303 12 - 191 01/10/2016 [facility] CARDIAC ENZYMES CK MB Index 0.3 0.0 - 2.5 01/10/2016 [facility] CHEM PANEL Bili Total 0.3 0.2 - 1.3 01/10/2016 [facility] CHEM PANEL A/G Ratio 1.0 0.7 - 1.6 01/10/2016 [facility] CHEM PANEL Globulin 3.8 2.0 - 4.0 01/10/2016 [facility] CHEM PANEL Alk Phos 80 39 - 136 01/10/2016 [facility] CHEM PANEL ALT 29 0 - 65 01/10/2016 [facility] CHEM PANEL Albumin Lvl 3.9 3.5 - 5.0 01/10/2016 [facility] CHEM PANEL AST 19 0 - 37 01/10/2016 [facility] CHEM PANEL Total Protein 7.7 6.4 - 8.4 01/10/2016 [facility] CHEM PANEL eGFR 62 01/10/2016 [...] should be multiplied by the estimated BMI. [facility] CHEM PANEL Calcium Lvl 8.9 8.5 - 10.5 01/10/2016 [facility] CHEM PANEL CO2 26 24 - 32 01/10/2016 [facility] CHEM PANEL Chloride Lvl 103 95 - 109 01/10/2016 [facility] CHEM PANEL Sodium Lvl 141 135 - 145 01/10/2016 [facility] CHEM PANEL Potassium Lvl 4.4 3.5 - 5.1 01/10/2016 [facility] CHEM PANEL B/C Ratio 30 6 - 25 01/10/2016 [facility] CHEM PANEL AGAP 16.4 10.0 - 20.0 01/10/2016 [facility] CHEM PANEL Creatinine Lvl 1.19 0.50 - 1.40 01/10/2016 [facility] CHEM PANEL BUN 36 7 - 22 01/10/2016 [facility] CHEM PANEL Glucose Lvl 91 70 - 99 01/10/2016 [facility] HEMATOLOGY MPV 10.2 7.4 - 10.4 01/10/2016 [facility] HEMATOLOGY MCV 92.4 80.0 - 94.0 01/10/2016 [facility] HEMATOLOGY RDW 13.2 11.5 - 14.5 01/10/2016 [facility] HEMATOLOGY Platelet 182 133 - 450 01/10/2016 [facility] HEMATOLOGY MCH 30.5 27.0 - 31.0 01/10/2016 [facility] HEMATOLOGY MCHC 32.9 32.0 - 36.0 01/10/2016 [facility] HEMATOLOGY RBC 4.21 4.70 - 6.10 01/10/2016 [facility] HEMATOLOGY WBC 9.0 3.7 - 10.4 01/10/2016 [facility] HEMATOLOGY Hct 38.9 42.0 - 54.0 01/10/2016 [facility] HEMATOLOGY Hgb 12.8 14.0 - 18.0 01/10/2016 [facility] HEMATOLOGY Segs-Bands # 5.4 1.5 - 8.1 01/10/2016 [facility] HEMATOLOGY Eosinophils 2.9 0.0 - 4.0 01/10/2016 [facility] HEMATOLOGY Basophils 1.7 0.0 - 1.0 01/10/2016 [facility] HEMATOLOGY Monocytes 7.5 2.0 - 12.0 01/10/2016 [facility] HEMATOLOGY Lymphocytes # 2.6 1.0 - 5.5 01/10/2016 [facility] HEMATOLOGY Segs 59.5 45.0 - 75.0 01/10/2016 [facility] HEMATOLOGY Lymphocytes 28.4 20.0 - 40.0 01/10/2016 [facility] HEMATOLOGY Eosinophils # 0.3 0.0 - 0.5 01/10/2016 [facility] HEMATOLOGY Basophils # 0.2 0.0 - 0.2 01/10/2016 [facility] HEMATOLOGY Monocytes # 0.7 0.0 - 0.8 01/10/2016 [facility] CARDIAC ENZYMES CK MB Index 1.3 0.0 - 2.5 11/11/2015 [facility] CARDIAC ENZYMES CK MB 4.0 0.5 - 3.6 11/11/2015 [facility] CARDIAC ENZYMES Troponin-I 0.91 0.00 - 0.40 11/11/2015 Result Comment: Critical Result(s) called to bebe hinojosa at 11/11/2015 02:09 by [email or web address]. Read back OK. [facility] CARDIAC ENZYMES Total CK 304 12 - 191 11/11/2015 [facility] CARDIAC ENZYMES Total CK 304 12 - 191 11/11/2015 [facility] HEMATOLOGY PTT 36.5 22.9 - 35.8 11/11/2015 [facility] HEMATOLOGY PT 13.2 12.0 - 14.7 11/11/2015 [facility] HEMATOLOGY INR 0.97 0.85 - 1.17 11/11/2015 [facility] CARDIAC ENZYMES Troponin-I 0.52 0.00 - 0.40 11/11/2015 Result Comment: Critical Result(s) called to kieran hinojosa at 11/10/2015 20:59 by gw. Read back OK. [facility] CARDIAC ENZYMES CK MB Index 0.7 0.0 - 2.5 11/10/2015 [facility] CARDIAC ENZYMES Troponin-I 0.04 0.00 - 0.40 11/10/2015 [facility] CARDIAC ENZYMES CK MB 2.6 0.5 - 3.6 11/10/2015 [facility] CARDIAC ENZYMES Total CK 356 12 - 191 11/10/2015 [facility] CHEM PANEL eGFR 94 11/10/2015 [...] PANEL BUN 14 7 - 22 11/10/2015 [facility] CHEM PANEL Creatinine Lvl 0.74 0.50 - 1.40 11/10/2015 [facility] CHEM PANEL Glucose Lvl 83 70 - 99 11/10/2015 [facility] CHEM PANEL Albumin Lvl 3.6 3.5 - 5.0 11/10/2015 [facility] CHEM PANEL Total Protein 7.4 6.4 - 8.4 11/10/2015 [facility] CHEM PANEL Chloride Lvl 105 95 - 109 11/10/2015 [facility] HEMATOLOGY Segs 83.9 45.0 - 75.0 11/10/2015 [facility] HEMATOLOGY Lymphocytes 8.2 20.0 - 40.0 11/10/2015 [facility] HEMATOLOGY Segs-Bands # 9.7 1.5 - 8.1 11/10/2015 [facility] HEMATOLOGY Basophils 0.6 0.0 - 1.0 11/10/2015 [facility] HEMATOLOGY Eosinophils 0.9 0.0 - 4.0 11/10/2015 [facility] HEMATOLOGY Monocytes 6.4 2.0 - 12.0 11/10/2015 [facility] HEMATOLOGY Basophils # 0.1 0.0 - 0.2 11/10/2015 [facility] HEMATOLOGY Lymphocytes # 1.0 1.0 - 5.5 11/10/2015 [facility] Eosinophils # 0.1 0.0 - 0.5 11/10/2015 [facility] Monocytes # 0.7 0.0 - 0.8 11/10/2015 [facility] MPV 10.4 7.4 - 10.4 11/10/2015 [facility] MCH 30.2 27.0 - 31.0 11/10/2015 [facility] Platelet 159 133 - 450 11/10/2015 [facility] MCHC 33.1 32.0 - 36.0 11/10/2015 [facility] RDW 13.3 11.5 - 14.5 11/10/2015 [facility] MCV 91.3 80.0 - 94.0 11/10/2015 [facility] Hct 40.0 42.0 - 54.0 11/10/2015 [facility] Hgb 13.2 14.0 - 18.0 11/10/2015 [facility] RBC 4.39 4.70 - 6.10 11/10/2015 [facility] WBC 11.5 3.7 - 10.4 11/10/2015 [facility] Pathology Reports No Data Provided [...] left internal carotid artery. NATE: BMUSTAFAIleana 12/07/2017 [facility] Retroperitoneal Complete US Patient Name: MINNA GRUBER : 1945; Age: 71 years y/o Male MR: [id number] Study: Retroperitoneal Complete US Clinical Indication: - [...] catheter. IMPRESSION: 1. Unremarkable renal U/S SL: [id number] 03/15/2017 [facility] Abdomen/Pelvis wo IV contrast CT [...] or pelvis. 2. Mild bibasilar subsegmental atelectasis. [id number] 03/15/2017 [facility] Chest 1view DX Chest 1view [...] abnormality is noted in the chest. SL: [id number] 03/14/2017 [facility] 1view DX Study: Frontal chest x-ray compared to 01/10/16 History: Chest pain Comments: The trachea is midline. The cardiomediastinal silhouette is normal in size. Sternotomy wires in place No pneumonia. No pleural effusions or pneumothorax. Impression: No acute cardiopulmonary disease. 02/04/2017 [facility] 1view DX EXAM: XR CHEST 1 [...] Unchanged bibasilar subsegmental atelectasis and scarring. 01/10/2016 [facility] Chest 1view DX EXAM: XR [...] retrocardiac opacities likely representing scarring/subsegmental atelectasis. 01/09/2016 [facility] Chest Pulmonary Embolism CTA Study: Chest Pulmonary Embolism CTA Clinical Indication: Chest pain; Comparison: Chest x-ray performed earlier the same day TECHNIQUE: Multiple axial CT images of the chest were acquired following the administration of intravenous contrast according to the pulmonary embolism protocol. Multiplanar and three-dimensional reformatted images were performed. Dose: WZG=7007.67 mGy-cm FINDINGS: Changes of median sternotomy and [...] emboli. 2. No acute cardiopulmonary disease. SL: [id number] 11/10/2015 [facility] Ext Lower Venous Doppler Unilat [...] thrombosis of the right lower extremity. SL: [id number] 11/10/2015 [facility] Chest 1view DX Portable chest: Median sternotomy wires are noted. The cardiomediastinal silhouette and pulmonary vasculature are within normal limits. There is mild linear scarring in the lingula. The lungs and ple ural spaces are otherwise clear. There are no acute osseous abnormalities. IMPRESSION: No acute radiographic abnormality in the chest. 13 11/10/2015 [facility] Consultation Notes No Data Provided [...] [facility] Respitory Rate 18 03/17/2017 [facility] Systolic (mm Hg) 158 03/17/2017 [facility] Diastolic (mm Hg) 64 03/17/2017 [facility] Temperature Oral (F) 98.4 F 03/17/2017 [facility] Heart Rate 83 03/17/2017 [facility] Temperature Oral (F) 97.7 F 03/17/2017 [facility] Systolic (mm Hg) 138 03/17/2017 [facility] Diastolic (mm Hg) 63 03/17/2017 [facility] Heart Rate 76 03/17/2017 [facility] Respitory Rate 18 03/17/2017 [facility] Systolic (mm Hg) 109 03/16/2017 [facility] Diastolic (mm Hg) 56 03/16/2017 [facility] Temperature Oral (F) 98 F 03/16/2017 [facility] Heart Rate 64 03/16/2017 [facility] Respitory Rate 20 03/16/2017 [facility] Weight 100 03/14/2017 [facility] BMI Calculated 35.58 03/14/2017 [facility] Height 167.64 cm 03/14/2017 [facility] Systolic (mm Hg) 102 03/14/2017 [...] [facility]oc Temperature Oral (F) 98.8 F 02/05/2017 [facility] Heart Rate 69 02/05/2017 [facility] Respitory Rate 16 02/05/2017 [facility] Systolic (mm Hg) 133 02/05/2017 [facility] Diastolic (mm Hg) 55 02/05/2017 [facility] Respitory Rate 16 02/05/2017 [facility] Systolic (mm Hg) 151 02/05/2017 [facility] Diastolic (mm Hg) 54 02/05/2017 [facility] Respitory Rate 16 02/05/2017 [facility] Temperature Oral (F) 98.0 F 02/05/2017 [facility] Heart Rate 67 02/05/2017 [facility] Systolic (mm Hg) 148 02/05/2017 [facility] Diastolic (mm Hg) 66 02/05/2017 [facility] Heart Rate 68 02/05/2017 [facility] Temperature Oral (F) 97.5 F 02/05/2017 [facility] Weight 102.909 02/04/2017 [facility] BMI Calculated 36.62 02/04/2017 [facility] Height 167.64 cm 02/04/2017 [facility] Height 167.64 cm 02/04/2017 [facility] Weight 100 02/04/2017 [facility] BMI Calculated 35.58 02/04/2017 [facility] Weight 101.364 06/26/2016 [facility] BMI Calculated 36.07 06/26/2016 [facility] Height 167.64 cm 06/26/2016 [facility] Weight 232 05/08/2016 [facility] Temperature Oral (F) 97.2 F 01/11/2016 [facility] Respitory Rate 16 01/11/2016 [facility] Systolic (mm Hg) 154 01/11/2016 [facility] Diastolic (mm Hg) 69 01/11/2016 [facility] Temperature Oral (F) 97.0 F 01/11/2016 [facility] Systolic (mm Hg) 135 01/11/2016 [facility] Diastolic (mm Hg) 70 01/11/2016 [facility] Systolic (mm Hg) 124 01/11/2016 [facility] Diastolic (mm Hg) 61 01/11/2016 [facility] BMI Calculated 35.19 01/11/2016 [facility] Weight 98.892 01/11/2016 [facility] Height 167.64 cm 01/11/2016 [facility] Respitory Rate 41 01/11/2016 [facility] Respitory Rate 20 01/11/2016 [facility] Heart Rate 80 01/10/2016 [facility] Heart Rate 80 01/10/2016 [facility] Weight 224 12/22/2015 [facility] Height 66 12/22/2015 [facility] Heart Rate 77 12/22/2015 [facility] Diastolic (mm Hg) 80 12/22/2015 [facility] Systolic (mm Hg) 134 12/22/2015 [facility] Respitory Rate 19 11/11/2015 [facility] Systolic (mm Hg) 151 11/11/2015 [facility] Diastolic (mm Hg) 68 11/11/2015 [facility] Respitory Rate 17 11/11/2015 [facility] Systolic (mm Hg) 165 11/11/2015 [facility] Diastolic (mm Hg) 74 11/11/2015 [facility] Respitory Rate 23 11/11/2015 [facility] Systolic (mm Hg) 144 11/11/2015 [facility] Diastolic (mm Hg) 74 11/11/2015 [facility] Temperature Oral (F) 98 F 11/11/2015 [facility] BMI Calculated 37.2 11/10/2015 [facility] Weight 104.545 11/10/2015 [facility] Heart Rate 116 11/10/2015 [facility] Temperature Oral (F) 97.7 F 11/10/2015 [facility] Height 167.64 cm 11/10/2015 [facility] Weight 227 11/02/2015 [facility] [employer]-chest discomfort [id number] 11/02/2015 11/02/2015 [facility] [employer]-chest discomfort [id number] 11/02/2015 11/02/2015 [facility] [employer]-chest discomfort [id number] 11/02/2015 11/02/2015 [facility] [employer]-chest discomfort [id number] 11/02/2015 11/02/2015 [facility] [employer]-chest discomfort [id number] 11/02/2015 11/02/2015 [facility] [employer]-chest discomfort [id number] 11/02/2015 11/02/2015 [facility] [employer]-chest discomfort [id number] 11/02/2015 11/02/2015 [facility] [employer]-chest discomfort [id number] 11/02/2015 11/02/2015 [facility] [employer]-chest discomfort [id number] 11/02/2015 11/02/2015 [facility] [employer]-chest discomfort [id number] 11/02/2015 11/02/2015 [facility] [employer]-chest discomfort [id number] 11/02/2015 11/02/2015 [facility] [employer]-chest discomfort [id number] 11/02/2015 11/02/2015 [facility] [employer]-chest discomfort [id number] 11/02/2015 11/02/2015 [facility] [employer]-chest discomfort [id number] 11/02/2015 11/02/2015 [facility] [employer]-chest discomfort [id number] 11/02/2015 11/02/2015 [facility] [employer]-chest discomfort [id number] 11/02/2015 11/02/2015 [facility] [employer]-chest discomfort [id number] 11/02/2015 11/02/2015 [facility] Unknown [id number] 11/08/2015 11/08/2015 [facility] Unknown [id number] 11/08/2015 11/08/2015 [facility] Unknown [id number] 11/08/2015 11/08/2015 [facility] Unknown [id number] 11/08/2015 11/08/2015 [facility] Unknown [id number] 11/08/2015 11/08/2015 [facility] Unknown [id number] 11/08/2015 11/08/2015 [facility] Unknown [id number] 11/08/2015 11/08/2015 [facility] Unknown [id number] 11/08/2015 11/08/2015 [facility] Unknown [id number] 11/08/2015 11/08/2015 [facility] Unknown [id number] 11/08/2015 11/08/2015 [facility] Unknown [id number] 11/08/2015 11/08/2015 [facility] Unknown [id number] 11/08/2015 11/08/2015 [facility] Unknown [id number] 11/08/2015 11/08/2015 [facility] Unknown [id number] 11/08/2015 11/08/2015 [facility] Unknown [id number] 11/08/2015 11/08/2015 [facility] Unknown [id number] 11/08/2015 11/08/2015 [facility] Outpatient [id number] ROCÍO PACKER 11/10/2015 [facility] Inpatient [id number] Rosa M Bell 11/10/2015 11/11/2015 [facility] Needs referral [id number] 11/15/2015 11/15/2015 [facility] Needs referral [id number] 11/15/2015 11/15/2015 [facility] Needs referral [id number] 11/15/2015 11/15/2015 [facility] Needs referral [id number] 11/15/2015 11/15/2015 [facility] Needs referral [id number] 11/15/2015 11/15/2015 [facility] Needs referral [id number] 11/15/2015 11/15/2015 [facility] Needs referral [id number] 11/15/2015 11/15/2015 [facility] Needs referral [id number] 11/15/2015 11/15/2015 [facility] Needs referral [id number] 11/15/2015 11/15/2015 [facility] Needs referral [id number] 11/15/2015 11/15/2015 [facility] Needs referral [id number] 11/15/2015 11/15/2015 [facility] Needs referral [id number] 11/15/2015 11/15/2015 [facility] Needs referral [id number] 11/15/2015 11/15/2015 [facility] Needs referral [id number] 11/15/2015 11/15/2015 [facility] Needs referral [id number] 11/15/2015 11/15/2015 [facility] Follow up ~ Had heart attack [id number] 12/22/2015 12/22/2015 [facility] Follow up ~ Had heart attack [id number] 12/22/2015 12/22/2015 [facility] Follow up ~ Had heart attack [id number] 12/22/2015 12/22/2015 [facility] Follow up ~ Had heart attack [id number] 12/22/2015 12/22/2015 [facility] Follow up ~ Had heart attack [id number] 12/22/2015 12/22/2015 [facility] [place] [facility] Follow up ~ Had heart attack [id number] 12/22/2015 12/22/2015 [facility] [place] [facility] Follow up ~ Had heart attack [id number] 12/22/2015 12/22/2015 [facility] [place] [facility] Follow up ~ Had heart attack [id number] 12/22/2015 12/22/2015 [facility] [place] [facility] Follow up ~ Had heart attack [id number] 12/22/2015 12/22/2015 [facility] [place] [facility] Follow up ~ Had heart attack [id number] 12/22/2015 12/22/2015 [facility] [place] [facility] Follow up ~ Had heart attack [id number] 12/22/2015 12/22/2015 [facility] Follow up ~ Had heart attack [id number] 12/22/2015 12/22/2015 [facility] Follow up ~ Had heart attack [id number] 12/22/2015 12/22/2015 [facility] Follow up ~ Had heart attack [id number] 12/22/2015 12/22/2015 [facility] medication [id number] 12/23/2015 12/23/2015 [facility] medication [id number] 12/23/2015 12/23/2015 [facility] medication [id number] 12/23/2015 12/23/2015 [facility] medication [id number] 12/23/2015 12/23/2015 [facility] medication [id number] 12/23/2015 12/23/2015 [facility] medication [id number] 12/23/2015 12/23/2015 [facility] medication [id number] 12/23/2015 12/23/2015 [facility] medication [id number] 12/23/2015 12/23/2015 [facility] medication [id number] 12/23/2015 12/23/2015 [facility] medication [id number] 12/23/2015 12/23/2015 [facility] medication [id number] 12/23/2015 12/23/2015 [facility] medication [id number] 12/23/2015 12/23/2015 [facility] medication [id number] 12/23/2015 12/23/2015 [facility] Unknown [id number] 12/31/2015 12/31/2015 [facility] Unknown [id number] 12/31/2015 12/31/2015 [facility] Unknown [id number] 12/31/2015 12/31/2015 [facility] Unknown [id number] 12/31/2015 12/31/2015 [facility] Unknown [id number] 12/31/2015 12/31/2015 [facility] Unknown [id number] 12/31/2015 12/31/2015 [facility] Unknown [id number] 12/31/2015 12/31/2015 [facility] Unknown [id number] 12/31/2015 12/31/2015 [facility] Unknown [id number] 12/31/2015 12/31/2015 [facility] Unknown [id number] 12/31/2015 12/31/2015 [facility] Unknown [id number] 12/31/2015 12/31/2015 [facility] Unknown [id number] 12/31/2015 12/31/2015 [facility] Inpatient [id number] [facility] 01/10/2016 01/11/2016 [facility] Follow up after er [id number] 01/25/2016 01/25/2016 [facility] Follow up after er [id number] 01/25/2016 01/25/2016 [facility] Follow up after er [id number] 01/25/2016 01/25/2016 [facility] Follow up after er [id number] 01/25/2016 01/25/2016 [facility] Follow up after er [id number] 01/25/2016 01/25/2016 [facility] Follow up after er [id number] 01/25/2016 01/25/2016 [facility] Follow up after er [id number] 01/25/2016 01/25/2016 [facility] Follow up after er [id number] 01/25/2016 01/25/2016 [facility] Follow up after er [id number] 01/25/2016 01/25/2016 [facility] Follow up after er [id number] 01/25/2016 01/25/2016 [facility] Unknown [id number] 01/25/2016 01/25/2016 [facility] Unknown [id number] 01/25/2016 01/25/2016 [facility] Unknown [id number] 01/25/2016 01/25/2016 [facility] Unknown [id number] 01/25/2016 01/25/2016 [facility] Unknown [id number] 01/25/2016 01/25/2016 [facility] Unknown [id number] 01/25/2016 01/25/2016 [facility] Unknown [id number] 01/25/2016 01/25/2016 [facility] Unknown [id number] 01/25/2016 01/25/2016 [facility] Unknown [id number] 01/25/2016 01/25/2016 [facility] Unknown [id number] 01/25/2016 01/25/2016 [facility] Unknown [id number] 01/25/2016 01/25/2016 [facility] cough and congestion [id number] 02/22/2016 02/22/2016 [facility] cough and congestion [id number] 02/22/2016 02/22/2016 [facility] cough and congestion [id number] 02/22/2016 02/22/2016 [facility] cough and congestion [id number] 02/22/2016 02/22/2016 [facility] cough and congestion [id number] 02/22/2016 02/22/2016 [facility] cough and congestion [id number] 02/22/2016 02/22/2016 [facility] cough and congestion [id number] 02/22/2016 02/22/2016 [facility] cough and congestion [id number] 02/22/2016 02/22/2016 [facility] cough and congestion [id number] 02/22/2016 02/22/2016 [facility] Unknown [id number] 02/27/2016 02/27/2016 [facility] Unknown [id number] 02/27/2016 02/27/2016 [facility] Unknown [id number] 02/27/2016 02/27/2016 [facility] Unknown [id number] 02/27/2016 02/27/2016 [facility] Unknown [id number] 02/28/2016 02/28/2016 [facility] Unknown [id number] 02/28/2016 02/28/2016 [facility] Unknown [id number] 02/28/2016 02/28/2016 [facility] Unknown [id number] 02/28/2016 02/28/2016 [facility] Refill [id number] 04/04/2016 04/04/2016 [facility] Refill [id number] 04/04/2016 04/04/2016 [facility] Refill [id number] 04/04/2016 04/04/2016 [facility] Refill [id number] 04/04/2016 04/04/2016 [facility] Refill [id number] 04/04/2016 04/04/2016 [facility] Refill [id number] 04/04/2016 04/04/2016 [facility] Refill [id number] 04/04/2016 04/04/2016 [facility] med refill [id number] 05/08/2016 05/08/2016 [facility] med refill [id number] 05/08/2016 05/08/2016 [facility] med refill [id number] 05/08/2016 05/08/2016 [facility] med refill [id number] 05/08/2016 05/08/2016 [facility] med refill [id number] 05/08/2016 05/08/2016 [facility] med refill [id number] 05/08/2016 05/08/2016 [facility] Unknown [id number] 06/06/2016 06/06/2016 [facility] Unknown [id number] 06/06/2016 06/06/2016 [facility] Unknown [id number] 06/06/2016 06/06/2016 [facility] Unknown [id number] 06/06/2016 06/06/2016 [facility] Unknown [id number] 06/06/2016 06/06/2016 [facility] Outpatient [id number] Sha Cortez Bosch 06/26/2016 06/27/2016 [facility] Unknown [id number] 08/06/2016 08/06/2016 [facility] Unknown [id number] 08/06/2016 08/06/2016 [facility] Unknown [id number] 08/06/2016 08/06/2016 [facility] Unknown [id number] 08/06/2016 08/06/2016 [facility] refills [id number] 08/14/2016 08/14/2016 [facility] refills [id number] 08/14/2016 08/14/2016 [facility] refills [id number] 08/14/2016 08/14/2016 [facility] Outpatient [id number] Hugo Dutta 08/14/2016 08/15/2016 [facility] Unknown [id number] 10/29/2016 10/29/2016 [facility] Unknown [id number] 10/29/2016 10/29/2016 [facility] Unknown [id number] 11/30/2016 11/30/2016 [facility] Observation [id number] Amir Kevinebranious 02/04/2017 02/05/2017 [facility] Inpatient [id number] Amir Ghebranious 03/14/2017 03/17/2017 [facility] Outpatient [id number] Sha Cortez Bosch 12/07/2017 12/08/2017 [facility] Procedures Procedure Code Date Perfomer Comments Source Cystectomy<sup>1</sup> [id number] 09/23/1967 spine [facility] Appendectomy [id number] 09/23/1963 [facility] CABG x 3 - Coronary artery bypass grafts x 3 [id number] [facility] Stent placement [id number] [facility] CABG x 3 - Coronary artery bypass grafts x 3 [id number] [facility] Stent placement [id number] [facility] Stent placement<sup>2</sup> [id number] total x7 [facility] Assessment and Plan Assessment and Plan Date Source Extracted from:Title: Nephrology progress note Author: Maximino Parry MD [...] 0.9% INJ 100 mL 1 gm, IVPB, HURE78D clopidogrel 75 mg TAB 75 mg 1 [...] will continue to follow with you 03/17/2017 [facility] Extracted from:Title: Clinical Document Author: Meenakshi Chaidez MD Date: 02/05/17 Progress Note - Daily [facility] Completed: Sunday, FEBRUARY 05, 2017, [...] EXAM PLAN and TREATMENT DIAGNOSES and PROBLEMS [id number] Ready for Discharge (Yes/No)? TEACHING ATTESTATION Extracted from:Title: CARDIOLOGY Author: Sha Galeano MD Date: 02/04/17 MD CARDIOLOGY CONSULT [facility] MD Dr. Chidi Garcia [id number] [facility] [facility], [address] [place], [place], [address] Office: [phone] REASON FOR CONSULT: CV management REQUESTING MD: [...] Primary managing Will continue to follow. 02/05/2017 [facility] Extracted from:Title: [facility] Discharge Summary Author: Yamileth Mendoza MD Date: 01/11/16 Discharge Summary Name: Minna Gruber Record Number: [id number] Admission Date: 01/10/2016 Discharge Date: 01/11/2016 Admit [...] a heart cath 2 months ago @ [facility] however no stents were placed. Pt saw his cardiology ([facility] butter melter: Dr. Sha Cortez) 2 days prior and [...] and hemodynamically stable. De will call his Body [facility]iner to reschedule his appointment and will follow [...] Diet: Diabetic Activity: As tolerated Follow up: Body Joiner Dr. Cortez and PCP Yamileth Major MD [...] ppx - Ambulation/GIRISH/SCD for DVT ppx 01/11/2016 [facility] Plan of Care No Data Provided for This Section Social History Social History Date Source Social History ElementQualifiersDate Reported Last Colonoscopy: . has appointment on 08/2016Aug 14, 2016 Ethnicity . Status , Is georgian your primary language? Yes Aug 14, 2016 [...] How often? 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 Activity level: Occasional physical work. Operates hazardous equipment: No. 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 Activity level: Occasional physical [...] 03/14/17 16 pack every other day 12/14/2014 [facility] Family History Value Date Source [...]
[2019-04-17 18:31] LABS: BASOPHILS % 0.2 % (0.0-1.0); EOSINOPHILS % 0.1 % (0.0-6.0); HEMATOCRIT 38.6 % (38.2-49.6); HEMOGLOBIN 12.5 g/dL (14.0-18.0); LYMPHOCYTES # (AUTO) 0.6 (1.0-3.2); LYMPHOCYTES % 6.9 % (18.0-39.1); MEAN CORPUSCULAR HGB CONC 32.4 g/dL (31-35); MEAN CORPUSCULAR VOLUME 92.6 fL (81-99); MONOCYTES # (AUTO) 0.1 (0.2-0.8); MONOCYTES % 1.1 % (4.4-11.3); NEUTROPHILS # (AUTO) 8.3 (2.1-6.9); NEUTROPHILS % 91.3 % (38.7-80.0); PLATELET COUNT 189 x10e3/uL (140-360); RED BLOOD COUNT 4.17 x10e6/uL (4.3-5.7); RED CELL DISTRIBUTION WIDTH 12.5 % (11.7-14.4)
[2019-04-17] MEDS ORDERED: MORPHINE SULFATE INJ 4 MG/ML INJ 1ML ONE (18:51)
--- NOTE | 2019-04-17 18:52 | Diagnostic Imaging Report ---
EXAMINATION: CHEST SINGLE (PORTABLE) INDICATION: ^CP ^[id number] ^1815 COMPARISON: Chest radiograph 02/20/2013 FINDINGS: AP view TUBES and LINES: None. LUNGS: Lungs are well inflated. Bilateral interstitial edema. Bibasilar atelectasis. PLEURA: No pleural effusion or pneumothorax. HEART AND MEDIASTINUM: Prominent cardiac silhouette. BONES AND SOFT TISSUES: Intact median sternotomy wires. No acute osseous lesion. Soft tissues are unremarkable. UPPER ABDOMEN: No free air under the diaphragm. IMPRESSION: Mild bilateral interstitial edema. Signed by: Dr. Nguyen June M.D. on 04/17/2019 6:48 PM
[2019-04-17] MEDS ORDERED: MORPHINE SULFATE 2 MG/ML SYR 1ML IV ONE ×2 (18:53→19:00)
[2019-04-17] MEDS ORDERED: MORPHINE SULFATE 2 MG/ML SYR 1ML IV STA (18:54)
[2019-04-17 19:07] LABS: ALBUMIN 3.4 g/dL (3.5-5.0); ALBUMIN/GLOBULIN RATIO 0.9 (0.8-2.0); CALCIUM 9.6 mg/dL (8.4-10.2); CREATININE, SERUM 1.47 mg/dL (0.72-1.25)
[2019-04-17 19:14] LABS: CREATINE KINASE MB 2.2 ng/mL (0-5.0)
[2019-04-17] MEDS ORDERED: SODIUM CHLORIDE 0.9% 1000ML 1,000 ML IV SCH (19:15)
[2019-04-17] MEDS ORDERED: INSULIN REGULAR, HUMAN 100 UNIT/1 ML 3ML VIAL SQ ONE ×2 (19:15→21:15)
[2019-04-17] MEDS ORDERED: INSULIN REGULAR, HUMAN 100 UNIT/1 ML 3ML VIAL IV ONE (19:30)
[2019-04-17] MEDS ORDERED: SERTRALINE HCL25 MG PO (20:52)
[2019-04-17] MEDS ORDERED: GABAPENTIN600 MG PO (20:52)
[2019-04-17] MEDS ORDERED: CRESTOR40 MG PO (20:52)
[2019-04-17] MEDS ORDERED: AMLODIPINE BES2.5 MG PO (20:53)
[2019-04-17] MEDS ORDERED: NOVOLIN N100 UNIT/1 SQ (20:55)
[2019-04-17] MEDS ORDERED: LORAZEPAM INJ 2 MG/ML VIAL IV ONE (21:15)
[2019-04-17 21:33] LABS: CREATINE KINASE MB 5.4 ng/mL (0-5.0)
[2019-04-17] MEDS ORDERED: ENOXAPARIN SODIUM INJ 100 MG/ML SYR SC ONE (21:42)
[2019-04-17] MEDS ORDERED: NITROGLYCERIN 2% OINT 1 GM PKT TOP ONE (21:45)
[2019-04-17] MEDS ORDERED: ASPIRIN 81 MG CHEW TAB PO ONE (21:45)
[2019-04-17] MEDS ORDERED: DEXTROSE 50% SYRINGE 50 ML IV PRN (22:00)
[2019-04-17] MEDS ORDERED: SODIUM CHLORIDE FLUSH 10 ML SYR INJ PRN (22:00)
--- OUTSIDE RECORDS SUMMARY | 2019-04-17 22:00 | XMS REPORT | Clinical Summary ---
Author Author [facility] Address Unknown Phone Unavailable Care Team Providers Care Station Engineer Chief Name Role Phone Pcp, No PCP Unavailable [...] unspecified vessel or lesion type, unspecified whether inaja or transplanted heart 06/03/2018 Hospital Cardiology - [...] Taken Vital Sign Reading 09/30/2018 3:30 PM LANCE CREWMEMBER/MLRS SERGEANT Blood Pressure 152/67 09/30/2018 3:30 PM LANCE CREWMEMBER/MLRS SERGEANT Pulse 67 09/30/2018 7:12 AM LANCE CREWMEMBER/[employer]RS SERGEANT Temperature 36.7 C (98.1 F) 09/30/2018 3:30 PM [employer]ANCE CREWMEMBER/MLRS SERGEANT Respiratory Rate 18 09/30/2018 1:00 PM [employer]ANCE CREWMEMBER/MLRS SERGEANT Oxygen Saturation 97% - Inhaled Oxygen - Concentration 09/30/2018 7:12 AM LANCE CREWMEMBER/[employer]RS SERGEANT Weight 104.5 kg (230 lb 6.4 oz) 09/30/2018 7:12 AM LANCE CREWMEMBER/MLRS SERGEANT Height 167.6 cm (5' 6") 09/30/2018 7:12 AM LANCE CREWMEMBER/MLRS SERGEANT Body Mass Index 37.19 Plan of Treatment Not on file Implants Device Identifier Shelf Expiration Date Model / Serial / Lot Implanted Type Area Manufactur er [id number] 02/20/2019 [id number] / / [id number] Device Clsr Angio-Seal Vip 6fr Cardiovasc N/A: Groin [employer] [id number] - [id number] ular MED:CARDIA Implanted: Qty: 1 on 06/03/2018 by Bobby Santos MD 06/22/2019 [id number] / [id number] / [id number] Device Clsr Angio-Seal Vip 6fr Cardiovasc [employer] [id number] - [id number] yanna MED:CARDIA Implanted: Qty: 1 on 09/30/2018 by Bobby Santos MD [id number] 04/05/2019 [id number] / / [id number] Promus Premier Stents-Cor N/A: Heart [place] Implanted: Qty: 1 on 06/03/2018 by Bobby Robert MD Procedures Comments Procedure Name Priority Date/Time Associated Diagnosis VASCULAR DIAGRAM -SCAN 01/07/2019 10:01 AM CDT VASCULAR DIAGRAM -SCAN 01/02/2019 5:11 AM CDT VASCULAR DIAGRAM -SCAN 11/13/2018 4:40 PM LANCE CRE[employer]MEMBER/[employer] SERGEANT REPORT OF PROCEDURE - 10/20/2018 ENDOSCOPY SCAN 10:00 AM LANCE CREWMEMBER/MLRS SERGEANT CARDIAC CATH REPORT - 10/20/2018 SCAN 10:00 AM LANCE CREWMEMBER/MLRS SERGEANT L CATH & PCI 09/30/2018 Angina pectoris (HCC) 1:01 PM [employer]ANCE CREWMEMBER/MLRS SERGEANT Case Notes (3) CASE POP6 mGy 2341. ECG 12-LEAD STAT 09/30/2018 8:44 AM LANCE CREWMEMBER/[employer] SERGEANT CBC W/PLT COUNT & AUTO STAT 09/30/2018 DIFFERENTIAL 8:20 AM [employer]MEMBER/[employer] SERGEANT CBC W/PLT COUNT & AUTO STAT 09/30/2018 DIFFERENTIAL 8:20 AM [employer] CRE[employer]MEMBER/[employer] SERGEANT BASIC METABOLIC PANEL (7) STAT 09/30/2018 8:20 AM LANCE CREWMEMBER/[employer]RS SERGEANT RHYTHM STRIP - SCAN 06/05/2018 1:41 PM [...] unspecified vessel or lesion type, unspecified whether inaja or transplanted heart Case Notes (2) CASE POP6 ECG 12-LEAD Routine 06/03/2018 7:33 AM CDT Procedure Note - Interface, External Ris In - 06/03/2018 7:47 AM CDT Ventricula r Rate 52 BPM Atrial Rate 52 BPM P-R Interval 198 ms QRS Duration 106 ms Q-T Interval 474 ms QTC Calculatio n(Bazett) 440 ms P [place] 53 degrees R [place] 34 degrees T [place] 51 degrees Sinus bradycardi a with marked [...] Performed At * EKG-SCANNED (10/20/2018 10:00 AM LANCE CREWMEMBER/MLRS SERGEANT) Only the most recent of 2 results within the time period is included. Narrative Performed At * CARDIAC CATH REPORT - SCAN (10/20/2018 10:00 AM LANCE CREWMEMBER/MLRS SERGEANT) Narrative Performed At * ECG 12 lead (09/30/2018 8:44 AM LANCE CREWMEMBER/MLRS SERGEANT) Only the most recent of 2 results within the time period is included. 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 WBC 8.3 3.5 - 10.5 K/L [facility] RBC 4.06 (L) 4.63 - 6.08 M/L [facility] Hemoglobin 12.4 (L) 13.7 - 17.5 GM/DL [facility] Hematocrit 38.7 (L) 40.1 - 51.0 % [facility] MCV 95.3 (H) 79.0 - 92.2 fL [facility] MCH 30.5 25.7 - 32.2 pg [facility] MCHC 32.0 (L) 32.3 - 36.5 GM/DL [facility] RDW 12.6 11.6 - 14.4 % [facility] Platelets 181 150 - 450 K/CU MM [facility] MPV 11.4 9.4 - 12.4 fL [facility] nRBC 0 0 - 0 /100 WBC [facility] % Neutros 70 % [facility] % Lymphs 21 % [facility] % Monos 7 % [facility] % Eos 2 % [facility] % Baso 1 % [facility] # Neutros 5.80 (H) 1.78 - 5.38 K/L [facility] # Lymphs 1.71 1.32 - 3.57 K/L [facility] # Monos 0.55 0.30 - 0.82 K/L [facility] # Eos 0.20 0.04 - 0.54 K/L [facility] # Baso 0.04 0.01 - 0.08 K/L [facility] Immature 0 0 - 1 % [facility] Granulocytes-[facility] Specimen Blood Performing Organization Address City/State/Zipcode Phone Number [facility] [address] [place] [address] MED[facility]ENTER * Basic metabolic panel (09/30/2018 8:20 AM LANCE CREWMEMBER/MLRS SERGEANT) Only the most recent of 3 results within the time period is included. Sodium 143 136 - 145 meq/L [facility] Potassium 4.2 3.5 - 5.1 meq/L [facility] Chloride 105 98 - 107 meq/L [facility] CO2 30 (H) 22 - 29 meq/L [facility] BUN 18 7 - 21 mg/dL [facility] Creatinine 0.97 0.57 - 1.25 mg/dL [facility] Glucose 85 70 - 105 mg/dL [facility] Calcium 9.3 8.4 - 10.2 mg/dL [facility] EGFR 76Comment: ESTIMATED GFR IS mL/min/1.73 sq m [facility] NOT ACCURATE CREATININE [facility] CLEARANCE IN PREDICTING GLOMERULAR FILTRATION RATE. ESTIMATED GFR IS NOT APPLICABLE FOR DIALYSIS PATIENTS. Specimen Blood Performing Organization Address City/[facility] Phone Number [address] [address] [facility] * RHYTHM STRIP - SCAN (06/05/2018 1:41 PM CDT) Narrative Performed At * CARDIAC CATH REPORT - SCAN (06/05/2018 1:41 PM CDT) Narrative Performed At * POC-Glucose meter (06/04/2018 8:30 AM CDT) Only the most recent of 3 results within the time period is included. POC-Glucose Meter 184 (H)Comment: TESTED AT 70 - 110 mg/dL [address] [address] Specimen Blood Performing Organization Address City/[facility] Phone Number [address] [address] [facility] * CBC (Hemogram only) (06/04/2018 4:14 AM CDT) WBC 8.5 3.5 - 10.5 K/L [facility] RBC 3.69 (L) 4.63 - 6.08 M/L [facility] Hemoglobin 11.1 (L) 13.7 - 17.5 GM/DL [facility] Hematocrit 35.4 (L) 40.1 - 51.0 % [facility] MCV 95.9 (H) 79.0 - 92.2 fL [facility] MCH 30.1 25.7 - 32.2 pg [facility] MCHC 31.4 (L) 32.3 - 36.5 GM/DL [facility] RDW 12.9 11.6 - 14.4 % [facility] Platelets 156 150 - 450 K/CU MM [facility] MPV 11.1 9.4 - 12.4 fL [facility] nRBC 0 0 - 0 /100 WBC [facility] Specimen Blood Performing Organization Address City/[facility] Phone Number [facility] [address] [place] [address] [phone] [facility] * POC ACTIVATED CLOTTING TIME (06/03/2018 10:16 AM CDT) Activated Clotting Time 401Comment: TESTED AT [facility] sec [address] [address] [facility] Specimen Blood Performing Organization Address City/[facility] Phone Number [facility] [address] [place] [address] [phone] [facility] after 04/16/2018 Insurance Payer Benefit Subscriber ID Type Phone Address Plan / Group AETNA - MEDICARE MGD CARE AETNA xxxxxxxx [facility] [phone] [id number] [place] [address] [facility] [place] Advance Directives For more information, please contact: [address] [address] Date Inactivated Comments Code Status Date Activated Full Code 09/30/2018 1:01 PM This code status was determined by: Patient 09/30/2018 1:01 PM Full Code 09/30/2018 7:26 AM This code status was determined by: Patient 06/03/2018 12:20 PM Full Code 06/03/2018 6:33 AM This code status was determined by: Patient
[2019-04-17] MEDS: FAMOTIDINE 20 MG/2 ML VIAL IV SCH (22:02)
--- OUTSIDE RECORDS SUMMARY | 2019-04-17 22:02 | XMS REPORT | Continuity of Care Document ---
Author Author [employer] Organization [employer] Address Unknown Phone Unavailable Care Team Providers Care Life Guard Name Role Phone [email or web address] Information [employer] Unavailable Unavailable Problems Problem Status Onset Date Classification Date Reported Comments Source Occlusion and stenosis of bilateral carotid arteries 12/13/2017 03/15/2018 [facility] CAROTID STENOSIS I65.29 Active 12/04/2017 [facility] VOMITING/NAUSEA Active 03/14/2017 [facility] GASTROENTERITIS, DEHYDRATION Active 03/14/2017 [facility] CHEST PAIN Active 02/04/2017 [facility] BERNARDO (ACUTE KIDNEY INJURY), CHEST PAIN Active 02/04/2017 [facility] DX: [id number] DISEASE Active 07/04/2016 [facility] AORTIC STENOSIS Q25.3 Active 06/04/2016 [facility] AORTIC STENOSIS; I35.0; I25.10; R07.9 Active 01/06/2016 [facility] NSTEMI Active 11/10/2015 [facility] Secondary, uncontrolled diabetes mellitus without mention of complication Active 12/01/2008 Problem 03/15/2018 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 Active Problem 04/16/2019 [facility] History of [place] Active Problem 04/16/2019 [facility] [D]Chest pain Active Problem 03/15/2018 [facility] Arthritis Active Problem 03/15/2018 [facility] CAD - Coronary artery disease Active Problem 03/15/2018 [facility] Cerebral palsy Active Problem 03/15/2018 [facility] Chronic pain Active Problem 03/15/2018 [facility] Diabetes mellitus Active Problem 03/15/2018 [facility] TRIBE - Hard of hearing Active Problem 03/15/2018 [facility] Hypertension Active Problem 03/15/2018 [facility] Incontinence of urine Active Problem 03/15/2018 [facility] Neuropathy Active Problem 03/15/2018 [facility] Swelling of ankle joint1 Active Problem 03/15/2018 Occasional swelling around both ankles [facility] Chest pain Resolved Problem 03/15/[address] [facility] [address] ELEVATION (STEMI) MYOCARDIAL INFARCTI Active [facility] SUPRAVALVULAR AORTIC STENOSIS Active [facility] PARKINSON'S DISEASE Active [facility] ACUTE KIDNEY FAILURE, UNSPECIFIED Active [facility] CHEST PAIN, UNSPECIFIED Active [facility] NONINFECTIVE GASTROENTERITIS AND COLITIS Active [facility] DEHYDRATION Active [facility] Medications Medication Details Route Status Patient Instructions Ordering Provider Order Date Source Rosuvastatin Calcium 1 tablet Orally Active 40 mg Orally Once a day [place] 08/08/2018 [facility] FreeStyle Sudeep Sensor System as directed NA Active - apply every 3-5 days (DX E11.65) [place] 07/24/2018 [facility] Ass FreeStyle Sudeep [place] as directed NA Active - read sensor as often as TID (DX E11.65) [place] 07/24/2018 [facility] Glimepiride 1 tablet with breakfast or the first main meal of the day by mouth Active 4 mg by mouth with dinner [place] 04/08/2018 [facility] Novolin 70/30 PenFill as directed Subcutaneous Active (70-30) 100 UNIT/ML Subcutaneous 65 units in am, 55 units at night [place] 03/19/2018 [facility] Humalog Mix 75/25 Pen 65 UNITS AM AND 45 UNITS PM subcutaneously Active (75-25) 100 UNIT/ML subcutaneously daily [place] 03/17/2018 [facility] Gabapentin 1 tablet by mouth Active 600 MG by mouth twice a day (bid) [place] 03/06/2018 [facility] Visipaque 100 mL, 0 ml/hr, Route: IV, Drug Form: KASI CARRILLO, Start date: 12/07/17 12:00:00 CDT, Duration: 1 doses or timesNotes: (Same as: Visipaque). WASTE: F/P - Black; E - Municipal Trash Bin Active 12/07/2017 [facility] Meclizine HCl 1 tablet as needed Orally Active 25 MG Orally Once a day [place] 10/15/2017 [facility] UltiCare Insulin Syringe as directed subcutaneously Active 29G X 1/2 subcutaneously as directed 65 units am and 45 units pm [place] 09/30/2017 [facility] OneTouch Lancets as directed in vitro Active - in vitro use tid dx: E11.65, Z79.4 [place] 09/09/2017 [facility] NovoFine as directed intramuscularly Active 32G X 6 MM intramuscularly use bid dx: E11.65, Z79.4 [place] 09/09/2017 [facility] One Touch/One Touch II Starter as directed In Vitro Active - In Vitro use tid dx: E11.65, Z79.4 [place] 09/09/2017 [facility] OneTouch Test as directed In Vitro Active - In Vitro use tid dx: E11.65, Z79.4 [place] 09/09/2017 [facility] ProAir HFA 2 puffs as needed Inhalation Active 108 (90 Base) MCG/ACT Inhalation every 4 hrs [facility] 03/21/2017 [facility] Zoloft 1 tablet Orally Active 25 MG Orally Once a day [facility] 03/21/2017 [facility] ProAir HFA 2 puffs as needed Inhalation Active 108 (90 Base) MCG/ACT Inhalation every 4 hrs [facility] 03/21/2017 [facility] Zoloft 1 tablet Orally Active 25 MG Orally Once a day [facility] 03/21/2017 [facility] Alprazolam 0.25 MG Oral Tablet [Xanax] 0.25 mg, 1 tab, Route: PO, Drug form: TAB, BID, Dosing Weight 100, kg, PRN as needed for anxiety, Start date: 03/16/17 21:25:00 CDT, Duration: 30 day, Stop date: 04/15/17 21:24:00 CDTNotes: With food or milk (Same as: Xanax) No Longer Active 03/17/2017 [facility] 24 HR Metoprolol Tartrate 50 MG Extended Release Tablet [Toprol] 50 mg, 1 tab, Route: PO, Drug form: ERTAB, Daily, Start date: 03/16/17 9:00:00 CDT, Duration: 30 day, Stop date: 04/14/17 9:00:00 CDTNotes: (Same as: Toprol XL) May split tab, but do not crush. No Longer Active 03/16/2017 [facility] clopidogrel 75 mg, 1 tab, Route: PO, Drug form: TAB, Daily, Dosing Weight 100, kg, Start date: 03/16/17 9:00:00 CDT, Duration: 30 day, Stop date: 04/14/17 9:00:00 CDTNotes: (Same As: Plavix) No Longer Active 03/16/2017 [facility] Isosorbide 120 mg, 4 tab, Route: PO, Drug form: ERTAB, QAM, Dosing Weight 100, kg, Start date: 03/16/17 9:00:00 CDT, Duration: 30 day, Stop date: 04/14/17 9:00:00 CDTNotes: (Same as:Imdur) "Do Not Crush" Take on empty stomach/ full glass of water. Do not crush No Longer Active 03/16/2017 [facility] Isosorbide Dinitrate 90 mg, Route: PO, Drug form: TAB, Daily, Dosing Weight 100, kg, Start date: 03/16/17 9:00:00 CDT, Duration: 30 day, Stop date: 04/14/17 9:00:00 CDT No Longer Active 03/16/2017 [facility] atorvastatin 40 mg, 1 tab, Route: PO, Drug form: TAB, Bedtime, Dosing Weight 100, kg, Start date: 03/15/17 21:00:00 CDT, Duration: 30 day, Stop date: 04/13/17 21:00:00 CDTNotes: (Same as: Lipitor) No Longer Active 03/16/2017 [facility] Sodium Bicarbonate 325 MG Oral Tablet [...] food or drink." No Longer Active 03/15/2017 [facility] 12 HR ranolazine 500 MG Extended Release Tablet [Ranexa] 500 mg, 1 tab, Route: PO, Drug form: TAB, BID, Dosing Weight 100, kg, Start date: 03/15/17 17:00:00 CDT, Duration: 30 day, Stop date: 04/14/17 9:00:00 CDTNotes: Same as Ranexa "Do Not Crush" No Longer Active 03/15/2017 [facility] Carbidopa 10 MG / Levodopa 100 MG Oral Tablet 1 tab, Route: PO, Drug Form: TAB, Dosing Weight 100, kg, BID, Start date: 03/15/17 17:00:00 CDT, Duration: 30 day, Stop date: 04/14/17 9:00:00 CDTNotes: Take with milk or food. (Same As: Sinemet) No Longer Active 03/15/2017 [facility] aspirin 81 mg tablet, enteric coated 81 mg, 1 tab, Route: PO, Drug form: ECTAB, Daily, Dosing Weight 100, kg, Start date: 03/15/17 13:48:00 CDT, Duration: 30 day, Stop date: 04/14/17 9:00:00 CDTNotes: Do not crush or chew. (Same As: Ecotrin) No Longer Active 03/15/2017 [facility] Nitroglycerin 0.4 MG Sublingual Tablet [Nitrostat] 0.4 mg, 1 tab, Route: SL, Drug form: TAB, Q5Min, Dosing Weight 100, kg, PRN Chest Pain, Start date: 03/15/17 13:36:00 CDT, Duration: 30 day, Stop date: 04/14/17 13:35:00 CDTNotes: (Same as:Nitroquick, Nitrostat) "Do Not Crush" Sublingual tablet No Longer Active 03/15/2017 [facility] Docusate 100 mg, 1 cap, Route: PO, Drug form: CAP, BID, Dosing Weight 100, kg, Start date: 03/15/17 9:00:00 CDT, Duration: 30 day, Stop date: 04/13/17 17:00:00 CDTNotes: (Same as: Colace) (Do Not Crush) No Longer Active 03/15/2017 [facility] Streptococcus pneumoniae serotype 1 capsular antigen diphtheria [id number] protein conjugate vaccine / Streptococcus pneumoniae serotype 14 capsular antigen diphtheria [id number] protein conjugate vaccine / Streptococcus pneumoniae serotype 18C capsular antigen d 0.5 mL, Route: IM, Drug Form: INJ, ONCALL, Start date: 03/14/17 23:00:00 CDT, Duration: 1 doses or timesNotes: Shake well prior to use (Same as: Prevnar 13) No Longer Active 03/15/2017 [facility] Morphine 1 mg, 0.5 mL, Route: IVP, Drug form: INJ, Q4H, Dosing Weight 100, kg, PRN Pain Score 1-5, Start date: 03/14/17 22:32:00 CDT, Duration: 30 day, Stop date: 04/13/17 22:31:00 CDTNotes: (Same as:MORPhine Sulfate) No Longer Active 03/15/2017 [facility] Zofran 2 mg, 1 mL, Route: IV, Drug form: INJ, Q4H, Dosing Weight 100, kg, PRN as needed for nausea/vomiting, Start date: 03/14/17 22:32:00 CDT, Duration: 30 day, Stop date: 04/13/17 22:31:00 CDTNotes: (Same as: Zofran) MEDICATION WASTE Product Size: 4 mg Product Wasted: ___ mg No Longer Active 03/15/2017 [facility] Sodium Chloride 0.154 MEQ/ML Injectable Solution 1,000 mL, Rate: 125 ml/hr, Infuse over: 8 hr, Route: IV, Dosing Weight 100 kg, Total Volume: 1,000, Start date: 03/14/17 21:26:00 CDT, Duration: 30 day, Stop date: 04/13/17 21:25:00 CDT No Longer Active 03/15/2017 [facility] Sodium Chloride 0.154 MEQ/ML Injectable Solution 1,000 mL, 1,000 ml/hr, Infuse Over: 1 hr, Route: IV, 1,000, Drug form: INJ, ONCE, Priority: STAT, Dosing Weight 100 kg, Start date: 03/14/17 21:25:00 CDT, Duration: 1 doses or times, Stop date: 03/14/17 21:25:00 CDT Inactive 03/15/2017 [facility] cefepime 1 gm, Route: IVPB, [id number], Dosing Weight 100, kg, (CrCl 10 - 29 ml/min), Start date: 03/14/17 21:00:00 CDT, Duration: 10 day, Stop date: 03/23/17 21:00:00 CDT, ABX Indication: BacteremiaNotes: (Same As: Maxipime) MEDICATION WASTE Product Size: 1000 mg Product Wasted: ___ mg No Longer Active 03/15/2017 [facility] Magnesium Sulfate 2 gm, 50 mL, Route: IVPB, Drug form: INJ, ONCE, Dosing Weight 100, kg, Total dose=2 gm, Start date: 03/14/17 20:44:00 CDT, Duration: 1 doses or times, Stop date: 03/14/17 20:44:00 CDTNotes: WASTE: F/P - Sink; E - Municipal Trash Bin Inactive 03/15/2017 [facility] Vancomycin 1 gm, Route: IV, ONCE, Dosing Weight 100, kg, Start date: 03/14/17 20:41:00 CDT, Stop date: 03/14/17 20:41:00 CDT, ABX Indication: BacteremiaNotes: TIME CRITICAL MEDICATION (Same As: Vancocin) Infus ion rate 2001 mg: infuse over 2.5 hours MEDICATION WASTE Product Size: 1000 mg Product Wasted: ___ mg Inactive 03/15/2017 [facility] Kayexalate 30 gm, 120 mL, Route: PO, Drug form: SUSP, ONCE, Dosing Weight 100, kg, Start date: 03/14/17 20:41:00 CDT, Stop date: 03/14/17 20:41:00 CDTNotes: (sodium polystyrene sulfonate 15 gm/60 ml GARRET) Shake well before use. (Same as: Kayexalate, SPS) Inactive 03/15/2017 [facility] Acetaminophen 650 mg, 2 tab, Route: PO, Drug form: TAB, Q4H, Dosing Weight 100, kg, PRN Pain 1-3/Temp > 100.4 F, Start date: 03/14/17 20:41:00 CDT, Duration: 30 day, Stop date: 04/13/17 20:40:00 CDTNotes: Do not e xceed 4 gm/day. (Same as: Tylenol) No Longer Active 03/15/2017 [facility] Saline Flush 0.9% 10 ml, Route: IVP, Drug Form: INJ, Dosing Weight 100, kg, PRN, PRN Line Flush, Start date: 03/14/17 20:41:00 CDT, Duration: 30 day, Stop date: 04/13/17 20:40:00 CDTNotes: (Same as: BD Posiflush) No Longer Active 03/15/2017 [facility] NS + KCL 20mEq/L 1000ml (Premix) 1,000 mL 1,000 mL, Rate: 75 ml/hr, Infuse over: 13.3 hr, Route: IV, Dosing Weight 100 kg, Total Volume: 1,000, Start date: 03/14/17 20:41:00 CDT, Duration: 30 day, Stop date: 04/13/17 20:40:00 CDTNotes: PREMIX IV - Do Not Alter WASTE: F/P - Sink; E - Municipal Trash Bin Inactive 03/15/2017 [facility] Insulin, Aspart, Human 4 unit, 0.04 [...] days from Date No Longer Active 03/15/2017 [facility] Glucagon 1 mg, Route: IM, Drug form: PDR/INJ, PRN, Dosing Weight 100, kg, PRN Blood Glucose Results, Start date: 03/14/17 20:39:00 CDT, Duration: 30 day, Stop date: 04/13/17 20:38:00 CDT No Longer Active 03/15/2017 [facility] Dextrose 50% Syringe 12.5 gm, 25 mL, Route: IVP, Drug Form: INJ, Dosing Weight 100, kg, PRN, PRN Blood Glucose Results, Start date: 03/14/17 20:39:00 CDT, Duration: 30 day, Stop date: 04/13/17 20:38:00 CDT No Longer Active 03/15/2017 [facility] Morphine 4 mg, 1 mL, Route: IVP, Drug form: SOLN, ONCE, Dosing Weight 100, kg, Start date: 03/14/17 19:29:00 CDT, Stop date: 03/14/17 19:29:00 CDTNotes: (Same as:MORPhine Sulfate) Inactive 03/15/2017 [facility] Zofran 4 mg, 2 mL, Route: IVP, Drug form: INJ, ONCE, Dosing Weight 100, kg, Start date: 03/14/17 19:29:00 CDT, Stop date: 03/14/17 19:29:00 CDTNotes: (Same as: Zofran) MEDICATION WASTE Product Size: 4 mg Product Wasted: ___ mg Inactive 03/15/2017 [facility] Saline Flush 0.9% 10 mL, Route: IVP, Drug Form: INJ, Dosing Weight 100, kg, PRN, PRN Line Flush, Start date: 03/14/17 16:14:00 CDT, Duration: 30 day, Stop date: 04/13/17 16:13:00 CDTNotes: (Same as: BD Posiflush) No Longer Active 03/14/2017 [facility] 24 HR Metoprolol Tartrate 50 MG Extended Release Tablet [Toprol] 50 mg, 1 tab, Route: PO, Drug form: ERTAB, Daily, Start date: 02/05/17 9:00:00 CDT, Duration: 30 day, Stop date: 03/06/17 9:00:00 CDTNotes: (Same as: Toprol XL) May split tab, but do not crush. Inactive 02/05/2017 [facility] Lisinopril 20 mg, 1 tab, Route: PO, Drug form: TAB, Daily, Dosing Weight 102.909, kg, Start date: 02/05/17 9:00:00 CDT, Duration: 30 day, Stop date: 03/06/17 9:00:00 CDTNotes: (Same as: Prinivil, Zestril) No Longer Active 02/05/2017 [facility] Isosorbide 120 mg, 4 tab, Route: PO, Drug form: ERTAB, QAM, Dosing Weight 102.909, kg, Start date: 02/05/17 9:00:00 CDT, Duration: 30 day, Stop date: 03/06/17 9:00:00 CDTNotes: (Same as:Imdur) "Do Not Crush" Take on empty stomach/ full glass of water. Do not crush Inactive 02/05/2017 [facility] NovoLIN 70/30 65 unit, Route: SUB-Q, QAM, Dosing Weight 102.909, kg, Start date: 02/05/17 9:00:00 CDT, Duration: 30 day, Stop date: 03/06/17 9:00:00 CDT No Longer Active 02/05/2017 [facility] insulin aspart-insulin aspart protamine 65 unit, [...] Expires in days from Date Inactive 02/05/2017 [facility] clopidogrel 75 mg, 1 tab, Route: PO, Drug form: TAB, Daily, Dosing Weight 102.909, kg, Start date: 02/05/17 9:00:00 CDT, Duration: 30 day, Stop date: 03/06/17 9:00:00 CDTNotes: (Same As: Plavix) Inactive 02/05/2017 [facility] aspirin 81 mg tablet, enteric coated 81 mg, 1 tab, Route: PO, Drug form: ECTAB, Daily, Dosing Weight 102.909, kg, Start date: 02/05/17 9:00:00 CDT, Duration: 30 day, Stop date: 03/06/17 9:00:00 CDTNotes: Do not crush or chew. (Same As: Ecotrin) Inactive 02/05/2017 [facility] glimepiride 2 mg, Route: PO, Drug form: TAB, Breakfast, Dosing Weight 102.909, kg, Start date: 02/05/17 8:00:00 CDT, Duration: 30 day, Stop date: 03/06/17 8:00:00 CDT No Longer Active 02/05/2017 [facility] Glucotrol 10 mg, 1 tab, Route: PO, Drug form: TAB, Before Breakfast, Start date: 02/05/17 7:30:00 CDT, Duration: 30 day, Stop date: 03/06/17 7:30:00 CDTNotes: (Same as: Glucotrol) 30 min before meals. Inactive 02/05/2017 [facility] Humulin 70/30 Route: SUB-Q, Drug form: SUSP, Bedtime, Dosing Weight 102.909, kg, Start date: 02/04/17 21:00:00 CDT, Duration: 30 day, Stop date: 03/05/17 21:00:00 CDT Inactive 02/05/2017 [facility] Furosemide 40 MG Oral Tablet 40 mg, 1 tab, Route: PO, Drug form: TAB, Bedtime, Dosing Weight 102.909, kg, Start date: 02/04/17 21:00:00 CDT, Duration: 30 day, Stop date: 03/05/17 21:00:00 CDTNotes: (Same as: Lasix) May cause GI upset. Give with food or milk. Inactive 02/05/2017 [facility] atorvastatin 40 mg, 1 tab, Route: PO, Drug form: TAB, Bedtime, Dosing Weight 102.909, kg, Start date: 02/04/17 21:00:00 CDT, Duration: 30 day, Stop date: 03/05/17 21:00:00 CDTNotes: (Same as: Lipitor) No Longer Active 02/05/2017 [facility] insulin aspart-insulin aspart protamine 45 unit, [...] days from Date No Longer Active 02/05/2017 [facility] 12 HR ranolazine 500 MG Extended Release Tablet [Ranexa] 500 mg, 1 tab, Route: PO, Drug form: TAB, BID, Dosing Weight 102.909, kg, Start date: 02/04/17 17:00:00 CDT, Duration: 30 day, Stop date: 03/06/17 9:00:00 CDTNotes: Same as Ranexa "Do Not Crush" No Longer Active 02/04/2017 [facility] gabapentin 300 mg, 1 cap, Route: PO, Drug form: CAP, TID, Dosing Weight 102.909, kg, Start date: 02/04/17 17:00:00 CDT, Duration: 30 day, Stop date: 03/06/17 13:00:00 CDTNotes: (Same as: Neurontin) No Longer Active 02/04/2017 [facility] Carbidopa 10 MG / Levodopa 100 MG Oral Tablet 1 tab, Route: PO, Drug Form: TAB, Dosing Weight 102.909, kg, BID, Start date: 02/04/17 17:00:00 CDT, Duration: 30 day, Stop date: 03/06/17 9:00:00 CDTNotes: Take with milk or food. (Same As: Sinemet) No Longer Active 02/04/2017 [facility] Hydralazine 10 mg, 0.5 mL, Route: IVP, Drug form: INJ, Q6H, Dosing Weight 102.909, kg, PRN Hypertension, Hydralazine 10mg IV q6h prn SBP>160mmHg., Start date: 02/04/17 16:24:00 CDT, Duration: 30 day, Stop date: 03/06/17 16:23:00 CDTNotes: (Same as: Apresoline) Push over 5 minutes No Longer Active 02/04/2017 [facility] Insulin, Aspart, Human 1 unit, 0.01 [...] days from Date No Longer Active 02/04/2017 [facility] Glucagon 1 mg, Route: IM, Drug form: PDR/INJ, PRN, Dosing Weight 102.909, kg, PRN Blood Glucose Results, Start date: 02/04/17 13:24:00 CDT, Duration: 30 day, Stop date: 03/06/17 13:23:00 CDT No Longer Active 02/04/2017 [facility] Dextrose 50% Syringe 25 gm, 50 mL, Route: IVP, Drug Form: INJ, Dosing Weight 102.909, kg, PRN, PRN Blood Glucose Results, Start date: 02/04/17 13:24:00 CDT, Duration: 30 day, Stop date: 03/06/17 13:23:00 CDT No Longer Active 02/04/2017 [facility] Nitroglycerin 0.4 MG Sublingual Tablet [Nitrostat] 0.4 mg, 1 tab, Route: SL, Drug form: TAB, Q5Min, Dosing Weight 102.909, kg, PRN Chest Pain, Start date: 02/04/17 13:22:00 CDT, Duration: 30 day, Stop date: 03/06/17 13:21:00 CDT Inactive 02/04/2017 [facility] Saline Flush 0.9% 10 ml, Route: IVP, Drug Form: INJ, Dosing Weight 100, kg, Q12H, Start date: 02/04/17 9:00:00 CDT, Duration: 30 day, Stop date: 03/05/17 21:00:00 CDTNotes: (Same as: BD Posiflush) No Longer Active 02/04/2017 [facility] aspirin 81 mg tablet, enteric coated 81 mg, 1 tab, Route: PO, Drug form: ECTAB, Daily, Dosing Weight 100, kg, Start date: 02/04/17 9:00:00 CDT, Duration: 30 day, Stop date: 03/05/17 9:00:00 CDTNotes: Do not crush or chew. (Same As: Ecotrin) Inactive 02/04/2017 [facility] Carbidopa 10 MG / Levodopa 100 MG Oral Tablet 1 tab, PO, BID, 0 Refill(s) Active 02/04/2017 [facility] gabapentin 900 mg, PO, TID, 0 Refill(s) No Longer Active 02/04/2017 [facility] isosorbide mononitrate 120 mg oral tablet, extended release 120 mg=1 tab, PO, QAM, # 30 tab, 0 Refill(s) Active 02/04/2017 [facility] insulin isophane-insulin regular human recombinant 70 units-30 units/mL subcutaneous injection 45 unit, SUB-Q, Bedtime, 0 Refill(s) Active 02/04/2017 [facility] 12 HR ranolazine 500 MG Extended Release Tablet [Ranexa] 500 mg=1 tab, PO, BID, # 60 tab, 0 Refill(s) Active 02/04/2017 [facility] metoprolol extended release 25 mg, PO, Daily, 0 Refill(s) No Longer Active 02/04/2017 [facility] Saline Flush 0.9% 10 ml, Route: IVP, Drug Form: INJ, Dosing Weight 100, kg, PRN, PRN Line Flush, Start date: 02/04/17 3:38:00 CDT, Duration: 30 day, Stop date: 03/06/17 3:37:00 CDTNotes: (Same as: BD Posiflush) No Longer Active 02/04/2017 [facility] Sodium Chloride 0.154 MEQ/ML Injectable Solution 1,000 mL, Rate: 75 ml/hr, Infuse over: 13.3 hr, Route: IV, Dosing Weight 100 kg, Total Volume: 1,000, Start date: 02/04/17 3:38:00 CDT, Duration: 30 day, Stop date: 03/06/17 3:37:00 CDT No Longer Active 02/04/2017 [facility] Ondansetron 4 mg, 1 tab, Route: PO, Drug form: TABDIS, Q8H, Dosing Weight 100, kg, PRN Nausea & Vomiting, Start date: 02/04/17 3:38:00 CDT, Duration: 30 day, Stop date: 03/06/17 3:37:00 CDTNotes: (Same as: Zofran ODT) No Longer Active 02/04/2017 [facility] Nitroglycerin 0.4 mg, 1 tab, Route: SL, Drug form: TAB, Q5Min, Dosing Weight 100, kg, PRN Chest Pain, Start date: 02/04/17 3:38:00 CDT, Duration: 3 doses or times, Stop date: Limited # of timesNotes: (Same as:Tres hathaway, Nitrostat) "Do Not Crush" Sublingual tablet No Longer Active 02/04/2017 [facility] sodium chloride 0.9% 1000 ml INJ 1,000 mL 1,000 mL, Rate: 1,000 ml/hr, Infuse over: 1 hr, Route: IV, Dosing Weight 100 kg, Total Volume: 1,000, Priority: STAT, Start date: 02/04/17 2:13:00 CDT, Duration: 1 doses or times, Stop date: 02/04/17 3:12:00 CDT Inactive 02/04/2017 [facility] Nitroglycerin 0.02 MG/MG Topical Ointment 1 inch, Route: TOP, Dosing Weight 100, kg, ONCE, STAT, Start date: 02/04/17 0:58:00 CDT, Stop date: 02/04/17 0:58:00 CDT Inactive 02/04/2017 [facility] Saline Flush 0.9% 10 mL, Route: IVP, Drug Form: INJ, Dosing Weight 100, kg, PRN, PRN Line Flush, Start date: 02/04/17 0:58:00 CDT, Duration: 30 day, Stop date: 03/06/17 0:57:00 CDTNotes: (Same as: BD Posiflush) No Longer Active 02/04/2017 [facility] Toprol XL 1 tablet Orally Active 50 MG Orally Once a day Juarez 11/27/2016 [facility] Toprol XL 1 tablet Orally Active 50 mg Orally Once in am Watkins 11/27/2016 [facility] Glimepiride 1 tablet with breakfast or the first main meal of the day Orally Active 2 MG Orally Once a day Juarez 08/27/2016 [facility] Ranexa 1 tablet Orally Active 500 MG Orally Twice a day Juarez 06/06/2016 [facility] Glimepiride 1 tablet with breakfast or the first main meal of the day Orally Active 2 MG Orally Once a day Juarez 05/03/2016 [facility] Gabapentin 3 capsule Orally Active 300 MG Orally Three times a day Juarez 02/28/2016 [facility] ProAir HFA 2 puffs as needed Inhalation Active 108 (90 Base) MCG/ACT Inhalation every 4 hrs prn Juarez 02/22/2016 [facility] ProAir HFA 2 puffs as needed Inhalation Active 108 (90 Base) MCG/ACT Inhalation every 4 hrs prn Kolby 02/22/2016 [facility] Levaquin 1 tablet Orally Active 500 mg Orally Once a day Juarez 02/22/2016 [facility] Tessalon Perles 1 capsule as needed Orally Active 100 mg Orally Three times a day prn Juarez 02/22/2016 [facility] Tramadol HCl 1 tablet as needed Orally Active 50 mg Orally QD PRN Juarez 01/25/2016 [facility] Gabapentin as directed Orally Active 300 MG Orally three times a day (tid) Juarez 01/25/2016 [facility] metoprolol extended release 50 mg, 1 tab, Route: PO, Drug form: ERTAB, QPM, Start date: 01/10/16 17:00:00 CDT, Duration: 30 day, Stop date: 02/08/16 17:00:00 CDTNotes: (Same as: Toprol XL) May split tab, but do not crush. No Longer Active 01/10/2016 [facility] NovoLIN 70/30 45 unit, 0.45 mL, Route: [...] Municipal Trash Bin No Longer Active 01/10/2016 [facility] gabapentin 600 MG Oral Tablet 600 mg=1 tab, PO, TID, # 270 tab, 0 Refill(s) Active 01/10/2016 [facility] Nitroglycerin 0.4 MG Sublingual Tablet [Nitrostat] 0.4 mg=1 tab, SL, Q5Min, PRN Chest Pain, # 100 tab, 0 Refill(s) Active 01/10/2016 [facility] lisinopril 20 mg oral tablet 20 mg=1 tab, PO, Daily, # 30 tab, 0 Refill(s) Active 01/10/2016 [facility] glimepiride 2 mg oral tablet 2 mg=1 tab, PO, Breakfast, # 30 tab, 0 Refill(s) Active 01/10/2016 [facility] metoprolol 50 mg oral tablet, extended release 50 mg=1 tab, PO, Daily, # 30 tab, 0 Refill(s) Active 01/10/2016 [facility] Furosemide 40 MG Oral Tablet 40 mg=1 tab, PO, Bedtime, # 30 tab, 0 Refill(s) Active 01/10/2016 [facility] Metformin hydrochloride 1000 MG Oral Tablet 1,000 mg=1 tab, PO, BID-Meals, # 30 tab, 0 Refill(s) Active 01/10/2016 [facility] isosorbide dinitrate 30 mg oral tablet 90 mg=3 tab, PO, Daily, 0 Refill(s) Active 01/10/2016 [facility] Metformin hydrochloride 1000 MG Oral Tablet 1,000 mg, 1 tab, Route: PO, Drug form: TAB, BID, Dosing Weight 104.545, kg, Start date: 01/10/16 9:00:00 CDT, Duration: 30 day, Stop date: 02/08/16 17:00:00 CDTNotes: Same as Glucophage No Longer Active 01/10/2016 [facility] Lasix 40 mg, 1 tab, Route: PO, Drug form: TAB, Daily, Dosing Weight 104.545, kg, Start date: 01/10/16 9:00:00 CDT, Duration: 30 day, Stop date: 02/08/16 9:00:00 CDTNotes: (Same as: Lasix) May cause GI upset. Give with food or milk. No Longer Active 01/10/2016 [facility] Imdur 90 mg, 3 tab, Route: PO, Drug form: ERTAB, QAM, Dosing Weight 104.545, kg, Start date: 01/10/16 9:00:00 CDT, Duration: 30 day, Stop date: 02/08/16 9:00:00 CDTNotes: (Same as:Imdur) "Do Not Crush" Take on empty stomach/ full glass of water. Do not crush No Longer Active 01/10/2016 [facility] pantoprazole 40 mg, Route: IVP, Drug form: INJ, Daily, Dosing Weight 104.545, kg, Start date: 01/10/16 9:00:00 CDT, Duration: 30 day, Stop date: 02/08/16 9:00:00 CDTNotes: (Same as: Protonix) No Longer Active 01/10/2016 [facility] Docusate 100 mg, 1 cap, Route: PO, Drug form: CAP, Q12H, Dosing Weight 104.545, kg, Start date: 01/10/16 9:00:00 CDT, Duration: 30 day, Stop date: 02/08/16 21:00:00 CDTNotes: (Same as: Colace) (Do Not Crush) No Longer Active 01/10/2016 [facility] Aspirin 81 mg, 1 tab, Route: PO, Drug form: CHEWTAB, Daily, Dosing Weight 104.545, kg, Start date: 01/10/16 9:00:00 CDT, Duration: 30 day, Stop date: 02/08/16 9:00:00 CDTNotes: Take with food. No Longer Active 01/10/2016 [facility] clopidogrel 75 mg, 1 tab, Route: PO, Drug form: TAB, Daily, Dosing Weight 104.545, kg, Priority: Routine, Start date: 01/10/16 9:00:00 CDT, Duration: 30 day, Stop date: 02/08/16 9:00:00 CDTNotes: (Same As: Plavix) No Longer Active 01/10/2016 [facility] glimepiride 2 mg, 1 tab, Route: PO, Drug form: TAB, Daily, Dosing Weight 104.545, kg, Start date: 01/10/16 9:00:00 CDT, Duration: 30 day, Stop date: 02/08/16 9:00:00 CDTNotes: (Same as: Amaryl) No Longer Active 01/10/2016 [facility] atorvastatin 40 mg, 1 tab, Route: PO, Drug form: TAB, Daily, Dosing Weight 104.545, kg, Start date: 01/10/16 9:00:00 CDT, Duration: 30 day, Stop date: 02/08/16 9:00:00 CDTNotes: (Same as: Lipitor) No Longer Active 01/10/2016 [facility] gabapentin 600 MG Oral Tablet 600 mg, 2 cap, Route: PO, Drug form: CAP, BID, Dosing Weight 104.545, kg, Start date: 01/10/16 9:00:00 CDT, Duration: 30 day, Stop date: 02/08/16 17:00:00 CDTNotes: (Same as: Neurontin) No Longer Active 01/10/2016 [facility] Lisinopril 20 mg, 1 tab, Route: PO, Drug form: TAB, Daily, Dosing Weight 104.545, kg, Start date: 01/10/16 9:00:00 CDT, Duration: 30 day, Stop date: 02/08/16 9:00:00 CDTNotes: (Same as: Prinivil, Zestril) No Longer Active 01/10/2016 [facility] NovoLIN 70/30 65 unit, 0.65 mL, Route: [...] Municipal Trash Bin No Longer Active 01/10/2016 [facility] Calcium Gluconate 1 gm, 10 mL, Route: IVPB, PRN, Dosing Weight 104.545, kg, PRN Abnormal Lab Result, Start date: 01/10/16 2:34:00 CDT, Duration: 30 day, Stop date: 02/09/16 2:33:00 CDT, FOR ICU USE ONLYNotes: WASTE: F/P - Sink; E - Municipal Trash Bin No Longer Active 01/10/2016 [facility] Magnesium Oxide 800 mg, 2 tab, Route: PO, Drug form: TAB, PRN, Dosing Weight 104.545, kg, PRN Abnormal Lab Result, FOR ICU USE ONLY, Start date: 01/10/16 2:34:00 CDT, Duration: 30 day, Stop date: 02/09/16 2:33:00 CDTNotes: (Same as: Mag-Ox 400) Magnesium oxide [id number] elemental magnesium Dose=____mg magnesium oxide (___mg elemental magnesium) No Longer Active 01/10/2016 [facility] Calcium Carbonate 500 MG Chewable Tablet 1,000 mg, 2 tab, Route: PO, Drug form: CHEWTAB, PRN, Dosing Weight 104.545, kg, PRN Abnormal Lab Result, FOR ICU USE ONLY, Start date: 01/10/16 2:34:00 CDT, Duration: 30 day, Stop date: 02/09/16 2:33:00 CDTNotes: (Same As: Tums) Calcium Carbonate 500 xh=109 mg elemental calcium Dose= mg calcium carbonate ( mg elemental calcium) No Longer Active 01/10/2016 [facility] potassium phosphate + Sodium Chloride 0.9% IV 250 mL 15 mmol, 5 mL, Route: IVPB, Drug form: INJ, PRN, Dosing Weight 104.545, kg, PRN Abnormal Lab Result, Start date: 01/10/16 2:34:00 CDT, Duration: 30 day, Stop date: 02/09/16 2:33:00 CDT, FOR ICU USE ONLYNotes: (Same as: K Phosphate.) 1 mMol phoshate has 1.47 mEq potassium Infuse over 4 hours No Longer Active 01/10/2016 [facility] Magnesium Sulfate 2 gm, 50 mL, Route: IVPB, Drug form: INJ, PRN, Dosing Weight 104.545, kg, PRN Abnormal Lab Result, Start date: 01/10/16 2:34:00 CDT, Duration: 30 day, Stop date: 02/09/16 2:33:00 CDT, FOR ICU USE ONLYNotes: WASTE: F/P - Sink; E - Municipal Trash Bin No Longer Active 01/10/2016 [facility] Neutra-Phos 2 pkt, Route: PO, Drug Form: PDR/REC, Dosing Weight 104.545, kg, PRN, PRN Abnormal Lab Result, FOR ICU USE ONLY, Start date: 01/10/16 2:34:00 CDT, Duration: 30 day, Stop date: 02/09/16 2:33:00 CDTNotes: (Same as: Neutra-Phos) Each 1.25 gm pkt has 250mg phosphorous. Mix w/2.5oz water and stir. No Longer Active 01/10/2016 [facility] potassium chloride 20 mEq, 1 tab, Route: PO, Drug form: ERTAB, PRN, Dosing Weight 104.545, kg, PRN Abnormal Lab Result, Start date: 01/10/16 2:34:00 CDT, Duration: 30 day, Stop date: 02/09/16 2:33:00 CDT, FOR ICU USE ONLYNotes: (Same as: K-Dur 20) "Do Not Crush" With food and full glass of water No Longer Active 01/10/2016 [facility] sodium phosphate + Sodium Chloride 0.9% IV 250 mL 30 mmol, 10 mL, Route: IVPB, Drug form: INJ, PRN, Dosing Weight 104.545, kg, PRN Abnormal Lab Result, Start date: 01/10/16 2:34:00 CDT, Duration: 30 day, Stop date: 02/09/16 2:33:00 CDT, FOR ICU USE ONLY No Longer Active 01/10/2016 [facility] Insulin, Aspart, Human 2 unit, 0.02 mL, [...] days from Date No Longer Active 01/10/2016 [facility] Dextrose 50% Syringe 25 gm, 50 mL, Route: IVP, Drug Form: INJ, Dosing Weight 104.545, kg, PRN, PRN Blood Glucose Results, Start date: 01/10/16 1:44:00 CDT, Duration: 30 day, Stop date: 02/09/16 1:43:00 CDT No Longer Active 01/10/2016 [facility] Glucagon 1 mg, Route: IM, Drug form: PDR/INJ, PRN, Dosing Weight 104.545, kg, PRN Blood Glucose Results, Start date: 01/10/16 1:44:00 CDT, Duration: 30 day, Stop date: 02/09/16 1:43:00 CDT No Longer Active 01/10/2016 [facility] Nitroglycerin 0.4 mg, 1 tab, Route: SL, Drug form: TAB, Q5Min, Dosing Weight 104.545, kg, PRN Chest Pain, Start date: 01/10/16 1:26:00 CDT, Duration: 3 doses or times, Stop date: Limited # of timesNotes: (Same as: Nitroquick, Nitrostat) "Do Not Crush" Sublingual tablet No Longer Active 01/10/2016 [facility] Al hydroxide/Mg hydroxide/simethicone 200 mg-200 mg-20 mg/5 mL oral suspension 30 mL, Route: PO, Drug Form: SUSP, Dosing Weight 104.545, kg, Q12H, PRN Indigestion, Start date: 01/10/16 1:26:00 CDT, Duration: 30 day, Stop date: 02/09/16 1:25:00 CDTNotes: (aluminum hydroxide-magnesium hyd- simethicone [id number]/5ml 30 ml ud GARRET) No Longer Active 01/10/2016 [facility] Ondansetron 4 mg, 1 tab, Route: PO, Drug form: TAB, Q8H, Dosing Weight 104.545, kg, PRN Nausea & Vomiting, Start date: 01/10/16 1:26:00 CDT, Duration: 30 day, Stop date: 02/09/16 1:25:00 CDTNotes: (Same as: Zofran) No Longer Active 01/10/2016 [facility] Nitroglycerin 0.4 mg, 1 tab, Route: SL, Drug form: TAB, Q5Min, Dosing Weight 104.545, kg, PRN Chest Pain, Priority: STAT, Start date: 01/09/16 23:15:00 CDT, Duration: 3 doses or times, Stop date: 01/11/16 0:00:00 CDTNotes: (Same as:Nitroquick, Nitrostat) "Do Not Crush" Sublingual tablet No Longer Active 01/10/2016 [facility] Aspirin 324 mg, 4 tab, Route: CHEW, Drug form: CHEWTAB, ONCE, Dosing Weight 104.545, kg, Priority: STAT, Start date: 01/09/16 23:13:00 CDT, Stop date: 01/09/16 23:13:00 CDTNotes: Take with food. Inactive 01/10/2016 [facility] Saline Flush 0.9% 10 mL, Route: IVP, Drug Form: INJ, Dosing Weight 104.545, kg, PRN, PRN Line Flush, Start date: 01/09/16 23:13:00 CDT, Duration: 30 day, Stop date: 02/08/16 23:12:00 CDTNotes: Same as: BD Posiflush Sterile No Longer Active 01/10/2016 [facility] Lisinopril 1 tablet Orally Active 20 MG Orally Once a day Juarez 12/31/2015 [facility] Lisinopril 1 tablet Orally Active 20 MG Orally Once a day Valdez Reddy 12/31/2015 [facility] Toprol XL 1 tablet Orally Active 50 MG Orally Once a day Ghebranious 12/31/2015 [facility] Lasix 1 tablet Orally Active 40 mg Orally Once a day Juarez 12/31/2015 [facility] Novolin 70/30 as directed Subcutaneous Active (70-30) 100 UNIT/ML Subcutaneous 65 units am and 45 units pm Juarez 12/23/2015 [facility] Novolin 70/30 as directed Subcutaneous Active (70-30) 100 UNIT/ML Subcutaneous 65 units am and 45 units pm Kellogg Reddy 12/23/2015 [facility] Linzess 1 capsule Orally Active 145 MCG Orally Once a day Kolby 12/22/2015 [facility] clopidogrel 75 mg, 1 tab, Route: PO, Drug form: TAB, Daily, Dosing Weight 104.545, kg, Start date: 11/11/15 9:00:00, Duration: 30 day, Stop date: 12/10/15 9:00:00Notes: (Same As: Plavix) No Longer Active 11/11/2015 [facility] Aspirin 325 MG Oral Tablet 325 mg, 1 tab, Route: PO, Drug form: TAB, Daily, Dosing Weight 104.545, kg, Start date: 11/11/15 9:00:00, Duration: 30 day, Stop date: 12/10/15 9:00:00Notes: Take with food. No Longer Active 11/11/2015 [facility] metoprolol extended release 25 mg, 1 tab, Route: PO, Drug form: ERTAB, Daily, Start date: 11/11/15 9:00:00, Duration: 30 day, Stop date: 12/10/15 9:00:00Notes: (Same as: Toprol XL) Do Not Crush No Longer Active 11/11/2015 [facility] Nitroglycerin 0.02 MG/MG Topical Ointment 1 inch, Route: TOP, Drug Form: OINT, Dosing Weight 104.545, kg, TID, Start date: 11/11/15 6:00:00, Duration: 30 day, Stop date: 12/10/15 18:00:00Notes: 1 gram is approximately 1 inch of nitroglycerin ointment (20 mg NTG per gram) (Same as:Nitro-Bid) No Longer Active 11/11/2015 [facility] Insulin, Aspart, Human 8 unit, 0.08 [...] days from Date No Longer Active 11/11/2015 [facility] Dextrose 50% Syringe 12.5 gm, 25 mL, Route: IVP, Drug Form: INJ, Dosing Weight 104.545, kg, PRN, PRN Blood Glucose Results, Start date: 11/11/15 1:28:00, Duration: 30 day, Stop date: 12/11/15 2:27:00 No Longer Active 11/11/2015 [facility] Glucagon 1 mg, Route: IM, Drug form: PDR/INJ, PRN, Dosing Weight 104.545, kg, PRN Blood Glucose Results, Start date: 11/11/15 1:28:00, Duration: 30 day, Stop date: 12/11/15 2:27:00 No Longer Active 11/11/2015 [facility] Heparin 60 unit/kg Bolus (Heparin Dosing Weight) Route: IVP, PRN, 4,800 unit, 4.8 mL, Drug form: INJ, PRN, Heparin Protocol, Start date: 11/11/15 1:25:00 Stop date: 12/11/15 2:24:00, 30 day No Longer Active 11/11/2015 [facility] heparin additive 25,000 unit [12 unit/kg/hr] + Premix Diluent Dextrose 5% 500 mL 500 mL, Rate: 19.22 ml/hr, Infuse over: 26 hr, Route: IV, Dosing Weight 80.1 kg, Total Volume: 500 mL, Start date: 11/11/15 1:25:00, Duration: 30 day, Stop date: 12/11/15 1:24:00 No Longer Active 11/11/2015 [facility] Heparin 30 unit/kg Bolus (Heparin Dosing Weight) Route: IVP, PRN, 2,400 unit, 2.4 mL, Drug form: INJ, PRN, Heparin Protocol, Start date: 11/11/15 1:25:00 Stop date: 12/11/15 2:24:00, 30 day No Longer Active 11/11/2015 [facility] Nitroglycerin 0.4 mg, 1 tab, Route: SL, Drug form: TAB, Q5Min, Dosing Weight 104.545, kg, PRN Chest Pain, Start date: 11/11/15 1:25:00, Duration: 3 doses or times, Stop date: Limited # of timesNotes: (Same as:Nitroqu ick, Nitrostat) "Do Not Crush" Sublingual tablet No Longer Active 11/11/2015 [facility] Sodium Chloride 0.154 MEQ/ML Injectable Solution 1,000 mL, Rate: 75 ml/hr, Infuse over: 13.3 hr, Route: IV, Dosing Weight 104.545 kg, Total Volume: 1,000, Start date: 11/11/15 1:25:00, Duration: 12 hr, Stop date: 11/11/15 13:24:00 Inactive 11/11/2015 [facility] Ambien 5 mg, 1 tab, Route: PO, Drug form: TAB, Bedtime, Dosing Weight 104.545, kg, PRN Insomnia, Start date: 11/11/15 1:17:00, Duration: 30 day, Stop date: 12/11/15 1:16:00Notes: (Same As: Ambien) No Longer Active 11/11/2015 [facility] NovoLIN 70/30 45 unit, SUB-Q, QPM, 0 Refill(s) Active 11/11/2015 [facility] Aspirin 81 MG Enteric Coated Tablet 81 mg=1 tab, PO, Daily, 3 Refill(s) Active 11/11/2015 [facility] Heparin - one time bolus for ACS 4,000 unit, 4 mL, Route: IV, Drug form: INJ, ONCE, Dosing Weight 104.545, kg, Priority: STAT, Start date: 11/10/15 22:05:00, Stop date: 11/10/15 22:05:00 No Longer Active 11/11/2015 [facility] heparin additive 25,000 unit [12 unit/kg/hr] + Premix Diluent Dextrose 5% 500 mL 500 mL, Rate: 19.22 ml/hr, Infuse over: 26 hr, Route: IV, Dosing Weight 80.1 kg, Total Volume: 500 mL, Start date: 11/10/15 22:05:00, Duration: 30 day, Stop date: 12/10/15 22:04:00 No Longer Active 11/11/2015 [facility] Heparin 30 unit/kg Bolus (Heparin Dosing Weight) Route: IVP, PRN, 2,400 unit, 2.4 mL, Drug form: INJ, PRN, Heparin Protocol, Start date: 11/10/15 22:05:00 Stop date: 12/10/15 23:04:00, 30 day No Longer Active 11/11/2015 [facility] Heparin 60 unit/kg Bolus (Heparin Dosing Weight) Route: IVP, PRN, 4,800 unit, 4.8 mL, Drug form: INJ, PRN, Heparin Protocol, Start date: 11/10/15 22:05:00 Stop date: 12/10/15 23:04:00, 30 day No Longer Active 11/11/2015 [facility] metoprolol tartrate 25 mg, 1 tab, Route: PO, Drug form: TAB, ONCE, Dosing Weight 104.545, kg, Priority: STAT, Start date: 11/10/15 22:04:00, Stop date: 11/10/15 22:04:00Notes: (Same as: Lopressor) Inactive 11/11/2015 [facility] Nitroglycerin 0.02 MG/MG Topical Ointment 1 inch, Route: TOP, Drug Form: OINT, Dosing Weight 104.545, kg, ONCE, STAT, Start date: 11/10/15 21:20:00, Stop date: 11/10/15 21:20:00Notes: 1 gram is approximately 1 inch of nitroglycerin ointment (20 mg NTG per gram) (Same as:Nitro-Bid) Inactive 11/11/2015 [facility] Aspirin 243 mg, 3 tab, Route: CHEW, Drug form: CHEWTAB, ONCE, Dosing Weight 104.545, kg, Priority: STAT, Start date: 11/10/15 19:38:00, Stop date: 11/10/15 19:38:00Notes: Take with food. Inactive 11/11/2015 [facility] Nitroglycerin 0.4 mg, 1 tab, Route: SL, Drug form: TAB, Q5Min, Dosing Weight 104.545, kg, PRN Chest Pain, Priority: STAT, Start date: 11/10/15 19:38:00, Duration: 3 doses or times, Stop date: Limited # of timesNot es: (Same as:Nitroquick, Nitrostat) "Do Not Crush" Sublingual tablet No Longer Active 11/11/2015 [facility] Saline Flush 0.9% 10 mL, Route: IVP, Drug Form: INJ, Dosing Weight 97.727, kg, PRN, PRN Line Flush, Start date: 11/10/15 15:17:00, Duration: 30 day, Stop date: 12/10/15 16:16:00Notes: (Same as: BD Posiflush) No Longer Active 11/10/2015 [facility] Lisinopril-Hydrochlorothiazide 1 tablet Orally No Longer Active 20-12.5 MG Orally Once a day Ghebranious 11/07/2015 [facility] Glimepiride 1 tablet with breakfast or the first main meal of the day Orally Active 2 MG Orally Once a day (with evening meal) Juarez 11/07/2015 [facility] Imdur 1 tablet Orally Active 30 mg Orally Once a day ebranious 11/02/2015 [facility] Gabapentin 3 CAPSULES orally Active 300 MG orally three times a day (tid) as needed (prn) [facility] Metoprolol Succinate ER 1 tablet Orally Active 25 MG Orally Once a day [facility] Atorvastatin Calcium 1 tablet Orally Active 40 mg Orally Once a day [facility] Furosemide 1 tablet Orally Active 40 MG Orally Once a day [facility] Metformin HCl 1 TABLET WITH MEALS TWICE A DAY ORALLY 90 DAYS NA Active 1000 MG Val[place] Reddy [facility] Aspir-81 1 tablet Orally Active 81 MG Orally Once a day [facility] Carbidopa-Levodopa ER 1 tablet Orally Active 25-100 MG Orally twice a day (bid) Ju[place] [facility] Clopidogrel Bisulfate 1 tablet Orally Active 75 mg Orally Once a day [place] [facility] Isosorbide Mononitrate 1 tablet Orally Active 120 MG Orally Once a day [place] [facility] Ranexa 1 tablet Orally Active 500 MG Orally Twice a day Ju[place] [facility] Linzess TAKE 1 CAPSULE BY MOUTH EVERY DAY NA Active 145 [place] [facility] Nitroglycerin 1 tablet Sublingual Active 0.4 MG Sublingual once a day prn Juarez [facility] Furosemide 1 tablet Orally Active 40 MG Orally Once a day Kol[place] [facility] Ranexa 1 tablet Orally Active 500 MG Orally Twice a day [facility] Aspir-81 1 tablet Orally Active 81 MG Orally Once a day [facility] Clopidogrel Bisulfate 1 tablet Orally Active 75 mg Orally Once a day [facility] Glimepiride 1 tablet orally Active 2 MG orally twice a day [facility] Metoprolol Succinate ER 1 tablet Orally Active 25 MG Orally qhs [facility] Carbidopa-Levodopa ER 1 tablet Orally Active 25-100 MG Orally twice a day (bid) [facility] Nitroglycerin 1 tablet Sublingual Active 0.4 MG Sublingual once a day prn [facility] Isosorbide Mononitrate 1 tablet Orally Active 120 MG Orally Once a day [facility] Atorvastatin Calcium 1 tablet Orally Active 40 mg Orally Once a day [facility] Zoloft 1 tablet Orally Active 25 MG Orally Once a day [place] [facility] Novolin 70/30 as directed Subcutaneous Active (70-30) 100 UNIT/ML Subcutaneous 68 units q am and 52 units q pm with food [facility] Amlodipine Besylate 1 tablet Orally Active 5 MG Orally Once a day [facility] Metoprolol Succinate ER 1 tablet Orally Active 50 mg Orally Once a day in the am [facility] Linzess TAKE 1 CAPSULE BY MOUTH EVERY DAY NA Active 145 prn [facility] Sertraline HCl 1 tablet orally Active 25 MG orally once a day [facility] [place] [facility] Ranexa 1 tablet Orally Active 1000 Orally Twice a day [facility] Metoprolol Succinate ER 1 tablet by mouth Active 100 MG by mouth Once a day in the am [facility] [place] [facility] Toprol XL 1 tablet Orally Active 50 mg Orally Once in am [facility] [place] [facility] Gabapentin 1 tablet by mouth Active 600 MG by mouth twice a day (bid) [facility] Amlodipine Besylate 1 tablet by mouth Active 2.5 MG by mouth Once a day [facility] [place] [facility] Metoprolol Succinate ER 1 tablet by mouth Active 50 MG by mouth twice a day (bid) [facility] [place] [facility] Metoprolol Succinate ER 1 tablet by mouth Active 25 MG by mouth at noon [facility] [place] [facility] Glimepiride 1 tablet with breakfast or the first main meal of the day by mouth Active 4 mg by mouth am [facility] [place] [facility] Novolin 70/30 as directed Subcutaneous Active (70-30) 100 UNIT/ML Subcutaneous 68 units q am and 52 units q pm with food [facility] [place] [facility] Metoprolol Tartrate 1 tablet Orally No Longer Active 50 MG Orally Twice [facility] Novolin R 70/30 units Injection Active 100 UNIT/ML Injection 65 units in the morning, 45 at night [facility] Metformin HCl 1 tablet with meals PO Active 500 mg PO Twice a day [facility] Ramipril 1 tablet Orally Active 10 MG Orally [facility] Gabapentin 1 tablet Orally No Longer Active 600 MG Orally three times a day (tid) as needed (prn) [facility] Metformin HCl 1 tablet with meals Orally Active 1000 mg Orally Twice a day [facility] Isosorbide Mononitrate 1 tablet Orally Active 90 mg Orally Once a day [facility] Isosorbide Dinitrate 1 tablet Orally Active 30 MG Orally Twice a day [facility] Glimepiride 1 tablet Orally Active 2 MG Orally Once a day (MUST SEE DOCTOR BEFORE NEXT REFILL) Kaylynn [facility] Imdur TAKE 1 TABLET BY MOUTH EVERY DAY NA Active 30 MG [facility] Metformin HCl 1 tablet with meals Orally Active 1000 mg Orally Twice a day [facility] Carbidopa-Levodopa ER 1 tablet Orally Active 25-100 MG Orally twice a day (bid) [place] Allergies, Adverse Reactions, Alerts Substance Category Reaction Severity Reaction type Status Date Reported Comments Source N.K.D.A. Adverse Reaction Info Not Available Adverse Reaction Active 12/04/2018 [facility] Immunizations Immunization Date Given Site Status Last Updated Comments Source FLUZONE HD 65 & [place] [id number] 08/14/2016 completed [facility] Results Order Name Results [...] should be multiplied by the estimated BMI. [facility] CHEM PANEL POC Creatinine 1.2 0.5 - 1.4 12/07/2017 [facility] CHEM PANEL eGFR 28 03/16/2017 Result [...] PANEL Globulin 3.0 2.7 - 4.2 03/16/2017 [facility] CHEM PANEL Bili Total 0.6 0.2 - 1.3 03/16/2017 [facility] CHEM PANEL Alk Phos 70 39 - 136 03/16/2017 [facility] CHEM PANEL AST 10 0 - 37 03/16/2017 [facility] CHEM PANEL ALT 11 0 - 65 03/16/2017 [facility] CHEM PANEL Albumin Lvl 2.8 3.5 - 5.0 03/16/2017 [facility] CHEM PANEL Total Protein 5.8 6.4 - 8.4 03/16/2017 [facility] CHEM PANEL B/C Ratio 19 6 - 25 03/16/2017 [facility] CHEM PANEL Calcium Lvl 7.7 8.5 - 10.5 03/16/2017 [facility] CHEM PANEL Potassium Lvl 4.8 3.5 - 5.1 03/16/2017 [facility] CHEM PANEL Chloride Lvl 118 95 - 109 03/16/2017 [facility] CHEM PANEL CO2 23 24 - 32 03/16/2017 [facility] CHEM PANEL Sodium Lvl 144 135 - 145 03/16/2017 [facility] CHEM PANEL Creatinine Lvl 2.30 0.50 - 1.40 03/16/2017 [facility] CHEM PANEL Glucose Lvl 126 70 - 99 03/16/2017 [facility] CHEM PANEL AGAP 7.8 10.0 - 20.0 03/16/2017 [facility] CHEM PANEL BUN 44 7 - 22 03/16/2017 [facility] HEMATOLOGY WBC 8.2 3.7 - 10.4 03/16/2017 [facility] HEMATOLOGY RBC 3.48 4.70 - 6.10 03/16/2017 [facility] HEMATOLOGY Hgb 10.6 14.0 - 18.0 03/16/2017 [facility] HEMATOLOGY Hct 32.6 42.0 - 54.0 03/16/2017 [facility] HEMATOLOGY MCHC 32.7 32.0 - 36.0 03/16/2017 [facility] HEMATOLOGY RDW 14.4 11.5 - 14.5 03/16/2017 [facility] HEMATOLOGY MPV 9.7 7.4 - 10.4 03/16/2017 [facility] HEMATOLOGY Platelet 140 133 - 450 03/16/2017 [facility] HEMATOLOGY MCH 30.6 27.0 - 31.0 03/16/2017 [facility] HEMATOLOGY MCV 93.5 80.0 - 94.0 03/16/2017 [facility] URINE AND STOOL UA Color Ltyellow 03/15/2017 [facility] URINE AND STOOL UA Urobilinogen <=1.0 mg/dL 0.1 - 1.0 03/15/2017 [facility] URINE AND STOOL UA Hyal Cast 3 0 - 2 03/15/2017 [facility] URINE AND STOOL UA Bacteria Occasional /HPF None Seen /HPF 03/15/2017 [facility] URINE AND STOOL UA RBC 40 0 - 2 03/15/2017 [facility] URINE AND STOOL UA Turbidity Clear (03/15/17 2:49 PM) Clear 03/15/2017 [facility] URINE AND STOOL UA pH 5.0 5.0 - 8.0 03/15/2017 [facility] URINE AND STOOL UA Spec Grav 1.011 <=1.030 03/15/2017 [facility] URINE AND STOOL UA WBC 7 0 - 5 03/15/2017 [facility] URINE AND STOOL UA Sq Epi Occasional /LPF Few /LPF 03/15/2017 [facility] URINE AND STOOL UA Leuk Est Trace *ABN* (03/15/17 2:49 PM) Negative 03/15/2017 [facility] URINE AND STOOL UA Nitrite Negative (03/15/17 2:49 PM) Negative 03/15/2017 [facility] URINE AND STOOL UA Blood Large *ABN* (03/15/17 2:49 PM) Negative 03/15/2017 [facility] URINE AND STOOL UA Bili Negative *NA* (03/15/17 2:49 PM) Negative 03/15/2017 [facility] URINE AND STOOL UA Glucose Negative mg/dL Negative mg/dL 03/15/2017 [facility] URINE AND STOOL UA Protein Negative mg/dL Negative mg/dL 03/15/2017 [facility] URINE AND STOOL UA Ketones Negative mg/dL Negative mg/dL 03/15/2017 [facility] URINE CHEM U Sodium 27 03/15/2017 [facility] URINE CHEM U Eos None Seen (03/15/17 2:49 PM) None Seen 03/15/2017 [facility] URINE CHEM U Alb/Crea 40.4 <=30.0 mcg/mg creat 03/15/2017 [facility] URINE CHEM U Microalb 60.6 03/15/2017 [...] Total Protein 6.2 6.4 - 8.4 03/15/2017 [facility] CHEM PANEL B/C Ratio 16 6 - 25 03/15/2017 [facility] CHEM PANEL Calcium Lvl 7.7 8.5 - 10.5 03/15/2017 [facility] CHEM PANEL ALT 17 0 - 65 03/15/2017 [facility] CHEM PANEL A/G Ratio 1.1 0.7 - 1.6 03/15/2017 [facility] CHEM PANEL Globulin 2.9 2.7 - 4.2 03/15/2017 [facility] CHEM PANEL Bili Total 0.4 0.2 - 1.3 03/15/2017 [facility] CHEM PANEL Alk Phos 79 39 - 136 03/15/2017 [facility] CHEM PANEL AST 10 0 - 37 03/15/2017 [facility] CHEM PANEL Lipase Lvl 656 73 - 393 03/15/2017 [facility] URINE AND STOOL UA Color Diana 03/15/2017 [facility] URINE AND STOOL UA Urobilinogen <=1.0 mg/dL 0.1 - 1.0 03/15/2017 [facility] URINE AND STOOL UA [place] Yeast Occasional /HPF None Seen /HPF 03/15/2017 [facility] URINE AND STOOL UA RBC 1 0 - 2 03/15/2017 [facility] URINE AND STOOL UA Bacteria Occasional /HPF None Seen /HPF 03/15/2017 [facility] URINE AND STOOL UA WBC 4 0 - 5 03/15/2017 [facility] URINE AND STOOL UA Hyal Cast 15 0 - 2 03/15/2017 [facility] URINE AND STOOL UA Leuk Est [...] UA Protein 30 mg/dL Negative mg/dL 03/15/2017 [facility] URINE AND STOOL UA pH 5.0 5.0 - 8.0 03/15/2017 [facility] URINE AND STOOL UA Spec Grav 1.018 <=1.030 03/15/2017 [facility] URINE AND STOOL UA Turbidity Clear (03/15/17 12:45 AM) Clear 03/15/2017 [facility] CARDIAC ENZYMES CK MB Index 0.7 0.0 - 2.5 03/15/2017 [facility] CARDIAC ENZYMES BNP 27 <=100 pg/mL 03/15/2017 [facility] CARDIAC ENZYMES Troponin-I <0.02 0.00 - 0.40 03/15/2017 [facility] CARDIAC ENZYMES CK MB 1.4 0.5 - 3.6 03/15/2017 [facility] CARDIAC ENZYMES Total CK 197 12 - 191 03/15/2017 [facility] CHEM PANEL Magnesium Lvl 1.7 1.8 - 2.4 03/15/2017 [facility] CHEM PANEL Lipase Lvl 691 73 - 393 03/15/2017 [facility] CHEM PANEL eGFR 11 03/15/2017 Result [...] should be multiplied by the estimated BMI. [facility] CHEM PANEL A/G Ratio 1.0 0.7 - 1.6 03/15/2017 [facility] CHEM PANEL Globulin 4.0 2.7 - 4.2 03/15/2017 [facility] CHEM PANEL B/C Ratio 14 6 - 25 03/15/2017 [facility] CHEM PANEL Alk Phos 94 39 - 136 03/15/2017 [facility] CHEM PANEL ALT 21 0 - [...] HEMATOLOGY Eosinophils 0.9 0.0 - 4.0 03/15/2017 [facility] HEMATOLOGY Basophils 0.3 0.0 - 1.0 03/15/2017 [facility] HEMATOLOGY Segs-Bands # 18.2 1.5 - 8.1 03/15/2017 [facility] HEMATOLOGY Lymphocytes # 1.6 1.0 - 5.5 03/15/2017 [facility] HEMATOLOGY Monocytes 5.8 2.0 - 12.0 03/15/2017 [facility] HEMATOLOGY Segs 85.3 45.0 - 75.0 03/15/2017 [facility] HEMATOLOGY Lymphocytes 7.7 20.0 - 40.0 03/15/2017 [facility] HEMATOLOGY Monocytes # 1.2 0.0 - 0.8 03/15/2017 [facility] HEMATOLOGY Eosinophils # 0.2 0.0 - 0.5 03/15/2017 [facility] HEMATOLOGY Basophils # 0.1 0.0 - 0.2 03/15/2017 [facility] HEMATOLOGY RDW 14.3 11.5 - 14.5 03/15/2017 [facility] HEMATOLOGY Platelet 214 133 - 450 03/15/2017 [facility] HEMATOLOGY MCHC 32.0 32.0 - 36.0 03/15/2017 [facility] HEMATOLOGY MCH 29.9 27.0 - 31.0 03/15/2017 [facility] HEMATOLOGY MPV 10.2 7.4 - 10.4 03/15/2017 [facility] HEMATOLOGY RBC 4.24 4.70 - 6.10 03/15/2017 [facility] HEMATOLOGY Hgb 12.7 14.0 - 18.0 03/15/2017 [facility] Hct 39.7 42.0 - 54.0 03/15/2017 [facility] HEMATOLOGY MCV 93.5 80.0 - 94.0 03/15/2017 [facility] HEMATOLOGY WBC 21.3 3.7 - 10.4 03/15/2017 [facility] HEMATOLOGY PTT 33.2 22.9 - 35.8 03/15/2017 [facility] HEMATOLOGY PT 13.7 12.0 - 14.7 03/15/2017 [facility] HEMATOLOGY INR 1.03 0.85 - 1.17 03/15/2017 [facility] CHEM PANEL eGFR 83 02/05/2017 Result [...] should be multiplied by the estimated BMI. [facility] CHEM PANEL Creatinine Lvl 0.93 0.50 - 1.40 02/05/2017 [facility] CHEM PANEL Sodium Lvl 144 135 - 145 02/05/2017 [facility] CHEM PANEL Potassium Lvl 4.4 3.5 - 5.1 02/05/2017 [facility] CHEM PANEL Glucose Lvl 67 70 - 99 02/05/2017 [facility] CHEM PANEL BUN 20 7 - 22 02/05/2017 [facility] CHEM PANEL Calcium Lvl 8.5 8.5 - 10.5 02/05/2017 [facility] CHEM PANEL Chloride Lvl 111 95 - 109 02/05/2017 [facility] CHEM PANEL CO2 28 24 - 32 02/05/2017 [facility] CHEM PANEL AGAP 9.4 10.0 - 20.0 02/05/2017 [facility] HEMATOLOGY RDW 13.4 11.5 - 14.5 02/05/2017 [facility] HEMATOLOGY Platelet 151 133 - 450 02/05/2017 [facility] HEMATOLOGY MPV 9.7 7.4 - 10.4 02/05/2017 [facility] HEMATOLOGY MCH 30.0 27.0 - 31.0 02/05/2017 [facility] MCHC 32.9 32.0 - 36.0 02/05/2017 [facility] HEMATOLOGY WBC 6.9 3.7 - 10.4 02/05/2017 [facility] HEMATOLOGY RBC 3.46 4.70 - 6.10 02/05/2017 [facility] HEMATOLOGY Hgb 10.4 14.0 - 18.0 02/05/2017 [facility] HEMATOLOGY Hct 31.5 42.0 - 54.0 02/05/2017 [facility] HEMATOLOGY MCV 91.2 80.0 - 94.0 02/05/2017 [facility] HEMATOLOGY Lymphocytes # 2.1 1.0 - 5.5 02/05/2017 [facility] HEMATOLOGY Segs-Bands # 3.9 1.5 - 8.1 02/05/2017 [facility] HEMATOLOGY Monocytes # 0.5 0.0 - 0.8 02/05/2017 [facility] HEMATOLOGY Basophils 0.8 0.0 - 1.0 02/05/2017 [facility] HEMATOLOGY Basophils # 0.1 0.0 - 0.2 02/05/2017 [facility] HEMATOLOGY Eosinophils 5.3 0.0 - 4.0 02/05/2017 [facility] HEMATOLOGY Eosinophils # 0.4 0.0 - 0.5 02/05/2017 [facility] HEMATOLOGY Monocytes 7.3 2.0 - 12.0 02/05/2017 [facility] HEMATOLOGY Lymphocytes 30.8 20.0 - 40.0 02/05/2017 [facility] HEMATOLOGY Segs 55.8 45.0 - 75.0 02/05/2017 [facility] CARDIAC ENZYMES Troponin-I <0.02 0.00 - 0.40 02/04/2017 [facility] CARDIAC ENZYMES Troponin-I <0.02 0.00 - 0.40 02/04/2017 [facility] URINE AND STOOL UA Bacteria Occasional [...] Turbidity Clear (02/04/17 3:57 AM) Clear 02/04/2017 [facility] CARDIAC ENZYMES BNP 51 <=100 pg/mL 02/04/2017 [facility] CARDIAC ENZYMES Troponin-I <0.02 0.00 - 0.40 02/04/2017 [facility] CARDIAC ENZYMES CK MB 1.8 0.5 - 3.6 02/04/2017 [facility] CARDIAC ENZYMES Total CK 224 12 - 191 02/04/2017 [facility] CARDIAC ENZYMES CK MB Index 0.8 0.0 - 2.5 02/04/2017 [facility] ELECTROLYTES Sodium Lvl 144 135 - 145 02/04/2017 [facility] ELECTROLYTES Creatinine Lvl 1.60 0.50 - 1.40 02/04/2017 [facility] ELECTROLYTES BUN 42 7 - 22 02/04/2017 [facility] ELECTROLYTES Glucose Lvl 184 70 - 99 02/04/2017 [facility] ELECTROLYTES eGFR 43 02/04/2017 Result Comment: [...] should be multiplied by the estimated BMI. [facility] ELECTROLYTES Total Protein 6.9 6.4 - 8.4 02/04/2017 [facility] ELECTROLYTES Calcium Lvl 9.0 8.5 - 10.5 02/04/2017 [facility] ELECTROLYTES CO2 29 24 - 32 02/04/2017 [facility] ELECTROLYTES Chloride Lvl 108 95 - 109 02/04/2017 [facility] ELECTROLYTES Potassium Lvl 4.7 3.5 - 5.1 02/04/2017 [facility] ELECTROLYTES Bili Total 0.2 0.2 - 1.3 02/04/2017 [facility] ELECTROLYTES Alk Phos 100 39 - 136 02/04/2017 [facility] ELECTROLYTES AST 12 0 - 37 02/04/2017 [facility] ELECTROLYTES ALT 16 0 - 65 02/04/2017 [facility] ELECTROLYTES Albumin Lvl 3.5 3.5 - 5.0 02/04/2017 [facility] ELECTROLYTES A/G Ratio 1.0 0.7 - 1.6 02/04/2017 [facility] ELECTROLYTES Globulin 3.4 2.7 - 4.2 02/04/2017 [facility] ELECTROLYTES B/C Ratio 26 6 - 25 02/04/2017 [facility] ELECTROLYTES AGAP 11.7 10.0 - 20.0 02/04/2017 [facility] HEMATOLOGY INR 0.90 0.85 - 1.17 02/04/2017 [facility] HEMATOLOGY PT 12.3 12.0 - 14.7 02/04/2017 [facility] HEMATOLOGY PTT 35.9 22.9 - 35.8 02/04/2017 [facility] MPV 10.6 7.4 - 10.4 02/04/2017 [facility] HEMATOLOGY WBC 8.5 3.7 - 10.4 02/04/2017 [facility] HEMATOLOGY Hct 35.1 42.0 - 54.0 02/04/2017 [facility] MCV 91.7 80.0 - 94.0 02/04/2017 [facility] MCH 30.7 27.0 - 31.0 02/04/2017 [facility] RBC 3.82 4.70 - 6.10 02/04/2017 [facility] Hgb 11.7 14.0 - 18.0 02/04/2017 [facility] MCHC 33.4 32.0 - 36.0 02/04/2017 [facility] RDW 13.5 11.5 - 14.5 02/04/2017 [facility] Platelet 171 133 - 450 02/04/2017 [facility] Eosinophils # 0.3 0.0 - 0.5 02/04/2017 [facility] Monocytes # 0.5 0.0 - 0.8 02/04/2017 [facility] HEMATOLOGY Segs-Bands # 5.2 1.5 - 8.1 02/04/2017 [facility] Basophils # 0.1 0.0 - 0.2 02/04/2017 [facility] Basophils 0.7 0.0 - 1.0 02/04/2017 [facility] Lymphocytes # 2.3 1.0 - 5.5 02/04/2017 [facility] Monocytes 6.4 2.0 - 12.0 02/04/2017 [facility] Eosinophils 3.9 0.0 - 4.0 02/04/2017 [facility] Lymphocytes 27.6 20.0 - 40.0 02/04/2017 [facility] HEMATOLOGY Segs 61.4 45.0 - 75.0 02/04/2017 [facility] CHEM PANEL Magnesium Lvl 1.9 1.8 - 2.4 01/11/2016 [facility] CHEM PANEL Phosphorus 3.6 2.5 - 4.5 01/11/2016 [facility] ELECTROLYTES AGAP 15.0 10.0 - 20.0 01/11/2016 [facility] ELECTROLYTES eGFR 91 01/11/2016 Result Comment: The [...] should be multiplied by the estimated BMI. [facility] ELECTROLYTES Sodium Lvl 143 135 - 145 01/11/2016 [facility] ELECTROLYTES Potassium Lvl 4.0 3.5 - 5.1 01/11/2016 [facility] ELECTROLYTES Chloride Lvl 108 95 - 109 01/11/2016 [facility] ELECTROLYTES CO2 24 24 - 32 01/11/2016 [facility] ELECTROLYTES Calcium Lvl 8.7 8.5 - 10.5 01/11/2016 [facility] ELECTROLYTES BUN 23 7 - 22 01/11/2016 [facility] ELECTROLYTES Creatinine Lvl 0.80 0.50 - 1.40 01/11/2016 [facility] ELECTROLYTES Glucose Lvl 72 70 - 99 01/11/2016 [facility] HEMATOLOGY Eosinophils # 0.3 0.0 - 0.5 01/11/2016 [facility] HEMATOLOGY Basophils # 0.1 0.0 - 0.2 01/11/2016 [facility] HEMATOLOGY Segs 59.7 45.0 - 75.0 01/11/2016 [facility] HEMATOLOGY Lymphocytes 27.5 20.0 - 40.0 01/11/2016 [facility] HEMATOLOGY Monocytes 7.6 2.0 - 12.0 01/11/2016 [facility] HEMATOLOGY Eosinophils 4.5 0.0 - 4.0 01/11/2016 [facility] HEMATOLOGY Basophils 0.7 0.0 - 1.0 01/11/2016 [facility] HEMATOLOGY Monocytes # 0.6 0.0 - 0.8 01/11/2016 [facility] HEMATOLOGY Segs-Bands # 4.4 1.5 - 8.1 01/11/2016 [facility] HEMATOLOGY Lymphocytes # 2.0 1.0 - 5.5 01/11/2016 [facility] HEMATOLOGY RBC 4.10 4.70 - 6.10 01/11/2016 [facility] HEMATOLOGY WBC 7.4 3.7 - 10.4 01/11/2016 [facility] HEMATOLOGY Hct 37.2 42.0 - 54.0 01/11/2016 [facility] HEMATOLOGY MCHC 33.3 32.0 - 36.0 01/11/2016 [facility] HEMATOLOGY MCH 30.2 27.0 - 31.0 01/11/2016 [facility] HEMATOLOGY RDW 12.8 11.5 - 14.5 01/11/2016 [facility] HEMATOLOGY MCV 90.8 80.0 - 94.0 01/11/2016 [facility] HEMATOLOGY Platelet 153 133 - 450 01/11/2016 [facility] HEMATOLOGY MPV 10.2 7.4 - 10.4 01/11/2016 [facility] HEMATOLOGY Hgb 12.4 14.0 - 18.0 01/11/2016 [facility] DRUG SCREEN U Benzodia Scr Negative *NA* (01/10/16 10:01 AM) Negative 01/10/2016 [facility] DRUG SCREEN U Cocaine Scr Negative *NA* (01/10/16 10:01 AM) Negative 01/10/2016 [facility] DRUG SCREEN UDS Note See Note *NA* (01/10/16 10:01 AM) 01/10/2016 [facility] DRUG SCREEN U Propoxyph Scr Negative *NA* (01/10/16 10:01 AM) Negative 01/10/2016 [facility] DRUG SCREEN U Cannab Scr Negative *NA* (01/10/16 10:01 AM) Negative 01/10/2016 [facility] DRUG SCREEN U Opiate Scr Negative *NA* (01/10/16 10:01 AM) Negative 01/10/2016 [facility] DRUG SCREEN U Phencyc Scr Negative *NA* (01/10/16 10:01 AM) Negative 01/10/2016 [facility] DRUG SCREEN U Methadone Scr Negative *NA* (01/10/16 10:01 AM) Negative 01/10/2016 [facility] DRUG SCREEN U Amph Scr Negative *NA* (01/10/16 10:01 AM) Negative 01/10/2016 [facility] DRUG SCREEN U Kristin Scr Negative *NA* (01/10/16 10:01 AM) Negative 01/10/2016 [facility] URINE AND STOOL UA Sq Epi None Seen (01/10/16 5:27 AM) Few 01/10/2016 [facility] URINE AND STOOL Micro? Performed (01/10/16 5:27 AM) 01/10/2016 [facility] URINE AND STOOL UA WBC None Seen (01/10/16 5:27 AM) None Seen 01/10/2016 [facility] URINE AND STOOL UA RBC None Seen (01/10/16 5:27 AM) 0 - 2 01/10/2016 [facility] URINE AND STOOL UA Blood Negative (01/10/16 5:27 AM) Negative 01/10/2016 [facility] [facility] [place] URINE AND STOOL UA Bili Negative *NA* (01/10/16 5:27 AM) Negative 01/10/2016 [facility] [place] URINE AND STOOL UA Urobilinogen 0.2 0.1 - 1.0 01/10/2016 [facility] [place] URINE AND STOOL UA Nitrite Negative (01/10/16 5:27 AM) Negative 01/10/2016 [facility] [place] URINE AND STOOL UA Leuk Est Negative (01/10/16 5:27 AM) Negative 01/10/2016 [facility] [place] URINE AND STOOL UA Spec Grav 1.015 <=1.030 01/10/2016 [facility] [place] URINE AND STOOL UA Color Yellow *NA* (01/10/16 5:27 AM) Yellow 01/10/2016 [facility] [place] URINE AND STOOL UA Turbidity Clear (01/10/16 5:27 AM) Clear 01/10/2016 [facility] [place] URINE AND STOOL UA pH 5.5 5.0 - 8.0 01/10/2016 [facility] [place] URINE AND STOOL UA Glucose Negative mg/dL Negative mg/dL 01/10/2016 [facility] [place] URINE AND STOOL UA Protein Negative mg/dL Negative mg/dL 01/10/2016 [facility] [place] URINE AND STOOL UA Ketones Negative mg/dL Negative mg/dL 01/10/2016 [facility] [place] CARDIAC ENZYMES BNP 10 <=100 pg/mL 01/10/2016 [facility] [place] CHEM PANEL Magnesium Lvl 1.7 1.8 - 2.4 01/10/2016 [facility] [place] CHEM PANEL Bili Indirect 0.1 0.0 - 1.0 01/10/2016 [facility] [place] CHEM PANEL Bili Total 0.2 0.2 - 1.3 01/10/2016 [facility] [place] CHEM PANEL Bili Direct 0.1 0.0 - 0.3 01/10/2016 [facility] [place] CHEM PANEL Phosphorus 4.2 2.5 - 4.5 01/10/2016 [facility] [place] CHEM PANEL eGFR 78 01/10/2016 Result Comment: [...] should be multiplied by the estimated BMI. [facility] [place] CHEM PANEL Calcium Lvl 8.6 8.5 - 10.5 01/10/2016 [facility] [place] CHEM PANEL CO2 24 24 - 32 01/10/2016 [facility] [place] CHEM PANEL Chloride Lvl 108 95 - 109 01/10/2016 [facility] [place] CHEM PANEL BUN 32 7 - 22 01/10/2016 [facility] [place] CHEM PANEL Glucose Lvl 88 70 - 99 01/10/2016 [facility] [place] CHEM PANEL Potassium Lvl 4.2 3.5 - 5.1 01/10/2016 [facility] [place] CHEM PANEL Sodium Lvl 142 135 - 145 01/10/2016 [facility] [place] CHEM PANEL Creatinine Lvl 0.98 0.50 - 1.40 01/10/2016 [facility] [place] CHEM PANEL AGAP 14.2 10.0 - 20.0 01/10/2016 [facility] [place] HEMATOLOGY Hgb 11.2 14.0 - 18.0 01/10/2016 [facility] [place] LIPIDS CHD Risk 3.32 4.00 - 7.30 01/10/2016 [facility] [place] LIPIDS VLDL 21 01/10/2016 [facility] [place] LIPIDS LDL (Calculated) 67 <=99 mg/dL 01/10/2016 [facility] [place] LIPIDS Trig 107 <=149 mg/dL 01/10/2016 [facility] [place] LIPIDS Chol 126 <=199 mg/dL 01/10/2016 [facility] [place] LIPIDS HDL 38 >=61 mg/dL 01/10/2016 [facility] [place] SPECIAL CHEMISTRY Hgb A1C 7.2 <=5.6 % 01/10/2016 [facility] [place] CARDIAC ENZYMES Total CK 243 12 - 191 01/10/2016 [facility] [place] CARDIAC ENZYMES Troponin-I <0.02 0.00 - 0.40 01/10/2016 [facility] [place] CARDIAC ENZYMES CK MB Index 0.5 0.0 - 2.5 01/10/2016 [facility] [place] CARDIAC ENZYMES CK MB 1.1 0.5 - 3.6 01/10/2016 [facility] [place] CHEM PANEL ALT 25 0 - 65 01/10/2016 [facility] [place] CHEM PANEL Alk Phos 62 39 - 136 01/10/2016 [facility] [place] CHEM PANEL AST 17 0 - 37 01/10/2016 [facility] [place] CHEM PANEL Total Protein 6.4 6.4 - 8.4 01/10/2016 [facility] [place] CHEM PANEL Albumin Lvl 3.4 3.5 - 5.0 01/10/2016 [facility] [place] CHEM PANEL Globulin 3.0 2.0 - 4.0 01/10/2016 [facility] [place] CHEM PANEL A/G Ratio 1.1 0.7 - 1.6 01/10/2016 [facility] [place] HEMATOLOGY INR 0.95 0.85 - 1.17 01/10/2016 [facility] [place] HEMATOLOGY PT 13.0 12.0 - 14.7 01/10/2016 [facility] [place] HEMATOLOGY PTT 35.9 22.9 - 35.8 01/10/2016 [facility] [place] CARDIAC ENZYMES Troponin-I <0.02 0.00 - 0.40 01/10/2016 [facility] [place] CARDIAC ENZYMES CK MB 1.0 0.5 - 3.6 01/10/2016 [facility] [place] CARDIAC ENZYMES Total CK 303 12 - 191 01/10/2016 [facility] [place] CARDIAC ENZYMES CK MB Index 0.3 0.0 - 2.5 01/10/2016 [facility] [place] CHEM PANEL Bili Total 0.3 0.2 - 1.3 01/10/2016 [facility] [place] CHEM PANEL A/G Ratio 1.0 0.7 - 1.6 01/10/2016 [facility] [place] CHEM PANEL Globulin 3.8 2.0 - 4.0 01/10/2016 [facility] [place] CHEM PANEL Alk Phos 80 39 - 136 01/10/2016 [facility] [place] CHEM PANEL ALT 29 0 - 65 01/10/2016 [facility] [place] CHEM PANEL Albumin Lvl 3.9 3.5 - 5.0 01/10/2016 [facility] [place] CHEM PANEL AST 19 0 - 37 01/10/2016 [facility] [place] CHEM PANEL Total Protein 7.7 6.4 - 8.4 01/10/2016 [facility] [place] CHEM PANEL eGFR 62 01/10/2016 Result Comment: [...] should be multiplied by the estimated BMI. [facility] [place] CHEM PANEL Calcium Lvl 8.9 8.5 - 10.5 01/10/2016 [facility] [place] CHEM PANEL CO2 26 24 - 32 01/10/2016 [facility] [place] CHEM PANEL Chloride Lvl 103 95 - 109 01/10/2016 [facility] [place] CHEM PANEL Sodium Lvl 141 135 - 145 01/10/2016 [facility] [place] CHEM PANEL Potassium Lvl 4.4 3.5 - 5.1 01/10/2016 [facility] [place] CHEM PANEL B/C Ratio 30 6 - 25 01/10/2016 [facility] [place] CHEM PANEL AGAP 16.4 10.0 - 20.0 01/10/2016 [facility] [place] CHEM PANEL Creatinine Lvl 1.19 0.50 - 1.40 01/10/2016 [facility] [place] CHEM PANEL BUN 36 7 - 22 01/10/2016 [facility] [place] CHEM PANEL Glucose Lvl 91 70 - 99 01/10/2016 [facility] [place] HEMATOLOGY MPV 10.2 7.4 - 10.4 01/10/2016 [facility] [place] HEMATOLOGY MCV 92.4 80.0 - 94.0 01/10/2016 [facility] [place] HEMATOLOGY RDW 13.2 11.5 - 14.5 01/10/2016 [facility] [place] HEMATOLOGY Platelet 182 133 - 450 01/10/2016 [facility] [place] HEMATOLOGY MCH 30.5 27.0 - 31.0 01/10/2016 [facility] [place] HEMATOLOGY MCHC 32.9 32.0 - 36.0 01/10/2016 [facility] [place] HEMATOLOGY RBC 4.21 4.70 - 6.10 01/10/2016 [facility] [place] HEMATOLOGY WBC 9.0 3.7 - 10.4 01/10/2016 [facility] [place] HEMATOLOGY Hct 38.9 42.0 - 54.0 01/10/2016 [facility] [place] HEMATOLOGY Hgb 12.8 14.0 - 18.0 01/10/2016 [facility] [place] HEMATOLOGY Segs-Bands # 5.4 1.5 - 8.1 01/10/2016 [facility] [place] HEMATOLOGY Eosinophils 2.9 0.0 - 4.0 01/10/2016 [facility] [place] HEMATOLOGY Basophils 1.7 0.0 - 1.0 01/10/2016 [facility] [place] HEMATOLOGY Monocytes 7.5 2.0 - 12.0 01/10/2016 [facility] [place] HEMATOLOGY Lymphocytes # 2.6 1.0 - 5.5 01/10/2016 [facility] [place] HEMATOLOGY Segs 59.5 45.0 - 75.0 01/10/2016 [facility] [place] HEMATOLOGY Lymphocytes 28.4 20.0 - 40.0 01/10/2016 [facility] [place] HEMATOLOGY Eosinophils # 0.3 0.0 - 0.5 01/10/2016 [facility] [place] HEMATOLOGY Basophils # 0.2 0.0 - 0.2 01/10/2016 [facility] [place] HEMATOLOGY Monocytes # 0.7 0.0 - 0.8 01/10/2016 [facility] [place] CARDIAC ENZYMES CK MB Index 1.3 0.0 - 2.5 11/11/2015 [facility] CARDIAC ENZYMES CK MB 4.0 0.5 - 3.6 11/11/2015 [facility] CARDIAC ENZYMES Troponin-I 0.91 0.00 - 0.40 11/11/2015 Result Comment: Critical Result(s) called to bebe hinojosa at 11/11/2015 02:09 by [email or web address]. Read back OK. [facility] CARDIAC ENZYMES Total CK 304 12 - 191 11/11/2015 [facility] CARDIAC ENZYMES Total CK 304 12 - 191 11/11/2015 [facility] HEMATOLOGY PTT 36.5 22.9 - 35.8 11/11/2015 [facility] HEMATOLOGY PT 13.2 12.0 - 14.7 11/11/2015 [facility] HEMATOLOGY INR 0.97 0.85 - 1.17 11/11/2015 [facility] CARDIAC ENZYMES Troponin-I 0.52 0.00 - 0.40 11/11/2015 Result Comment: Critical Result(s) called to kieran hinojosa at 11/10/2015 20:59 by [email or web address]. Read back OK. [facility] CARDIAC ENZYMES CK MB Index 0.7 0.0 - 2.5 11/10/2015 [facility] CARDIAC ENZYMES Troponin-I 0.04 0.00 - 0.40 11/10/2015 [facility] CARDIAC ENZYMES CK MB 2.6 0.5 - 3.6 11/10/2015 [facility] CARDIAC ENZYMES Total CK 356 12 - 191 11/10/2015 [facility] CHEM PANEL eGFR 94 11/10/2015 Result [...] PANEL BUN 14 7 - 22 11/10/2015 [facility] CHEM PANEL Creatinine Lvl 0.74 0.50 - 1.40 11/10/2015 [facility] CHEM PANEL Glucose Lvl 83 70 - 99 11/10/2015 [facility] CHEM PANEL Albumin Lvl 3.6 3.5 - 5.0 11/10/2015 [facility] CHEM PANEL Total Protein 7.4 6.4 - 8.4 11/10/2015 [facility] CHEM PANEL Chloride Lvl 105 95 - 109 11/10/2015 [facility] HEMATOLOGY Segs 83.9 45.0 - 75.0 11/10/2015 [facility] HEMATOLOGY Lymphocytes 8.2 20.0 - 40.0 11/10/2015 [facility] HEMATOLOGY Segs-Bands # 9.7 1.5 - 8.1 11/10/2015 [facility] HEMATOLOGY Basophils 0.6 0.0 - 1.0 11/10/2015 [facility] HEMATOLOGY Eosinophils 0.9 0.0 - 4.0 11/10/2015 [facility] HEMATOLOGY Monocytes 6.4 2.0 - 12.0 11/10/2015 [facility] HEMATOLOGY Basophils # 0.1 0.0 - 0.2 11/10/2015 [facility] HEMATOLOGY Lymphocytes # 1.0 1.0 - 5.5 11/10/2015 [facility] Eosinophils # 0.1 0.0 - 0.5 11/10/2015 [facility] Monocytes # 0.7 0.0 - 0.8 11/10/2015 [facility] MPV 10.4 7.4 - 10.4 11/10/2015 [facility] MCH 30.2 27.0 - 31.0 11/10/2015 [facility] Platelet 159 133 - 450 11/10/2015 [facility] MCHC 33.1 32.0 - 36.0 11/10/2015 [facility] RDW 13.3 11.5 - 14.5 11/10/2015 [facility] MCV 91.3 80.0 - 94.0 11/10/2015 [facility] Hct 40.0 42.0 - 54.0 11/10/2015 [facility] Hgb 13.2 14.0 - 18.0 11/10/2015 [facility] RBC 4.39 4.70 - 6.10 11/10/2015 [facility] WBC 11.5 3.7 - 10.4 11/10/2015 [facility] Pathology Reports No Data Provided for [...] left internal carotid artery. NATE: BMUSTAFAIleana 12/07/2017 [facility] Retroperitoneal Complete US Patient Name: MINNA GRUBER : 1945; Age: 71 years y/o Male MR: [id number] Study: Retroperitoneal Complete US Clinical Indication: - [...] catheter. IMPRESSION: 1. Unremarkable renal U/S SL: [id number] 03/15/2017 [facility] Abdomen/Pelvis wo IV contrast CT CT [...] or pelvis. 2. Mild bibasilar subsegmental atelectasis. [id number] 03/15/2017 [facility] Chest 1view DX Chest 1view DX [...] abnormality is noted in the chest. SL: [id number] 03/14/2017 [facility] 1view DX Study: Frontal chest x-ray compared to 01/10/16 History: Chest pain Comments: The trachea is midline. The cardiomediastinal silhouette is normal in size. Sternotomy wires in place No pneumonia. No pleural effusions or pneumothorax. Impression: No acute cardiopulmonary disease. 02/04/2017 [facility] 1view DX EXAM: XR CHEST 1 VIEW [...] Unchanged bibasilar subsegmental atelectasis and scarring. 01/10/2016 [facility] [place] Chest 1view DX EXAM: XR CHEST 1 [...] retrocardiac opacities likely representing scarring/subsegmental atelectasis. 01/09/2016 [facility] [place] Chest Pulmonary Embolism CTA Study: Chest Pulmonary Embolism CTA Clinical Indication: Chest pain; Comparison: Chest x-ray performed earlier the same day TECHNIQUE: Multiple axial CT images of the chest were acquired following the administration of intravenous contrast according to the pulmonary embolism protocol. Multiplanar and three-dimensional reformatted images were performed. Dose: UAG=0052.67 mGy-cm FINDINGS: Changes of median sternotomy and [...] emboli. 2. No acute cardiopulmonary disease. SL: [id number] 11/10/2015 [facility] Ext Lower Venous Doppler Unilat US [...] thrombosis of the right lower extremity. SL: [id number] 11/10/2015 [facility] Chest 1view DX Portable chest: Median sternotomy wires are noted. The cardiomediastinal silhouette and pulmonary vasculature are within normal limits. There is mild linear scarring in the lingula. The lungs and ple ural spaces are otherwise clear. There are no acute osseous abnormalities. IMPRESSION: No acute radiographic abnormality in the chest. 13 11/10/2015 [facility] Consultation Notes No Data Provided for This Section Discharge Summaries No Data Provided for This Section History and Physicals No Data Provided for This Section Vital Signs Vital Sign Value Date Comments Source Weight 235 12/04/2018 [facility] Height 66 [...] [facility] Respitory Rate 18 03/17/2017 [facility] Systolic (mm Hg) 158 03/17/2017 [facility] Diastolic (mm Hg) 64 03/17/2017 [facility] Temperature Oral (F) 98.4 F 03/17/2017 [facility] Heart Rate 83 03/17/2017 [facility] Temperature Oral (F) 97.7 F 03/17/2017 [facility] Systolic (mm Hg) 138 03/17/2017 [facility] Diastolic (mm Hg) 63 03/17/2017 [facility] Heart Rate 76 03/17/2017 [facility] Respitory Rate 18 03/17/2017 [facility] Systolic (mm Hg) 109 03/16/2017 [facility] Diastolic (mm Hg) 56 03/16/2017 [facility] Temperature Oral (F) 98 F 03/16/2017 [facility] Heart Rate 64 03/16/2017 [facility] Respitory Rate 20 03/16/2017 [facility] Weight 100 03/14/2017 [facility] BMI Calculated 35.58 03/14/2017 [facility] Height 167.64 cm 03/14/2017 [facility] Systolic (mm Hg) 102 03/14/2017 [facility] Temperature Oral (F) 98.8 F 02/05/2017 [facility] Heart Rate 69 02/05/2017 [facility] Respitory Rate 16 02/05/2017 [facility] Systolic (mm Hg) 133 02/05/2017 [facility] Diastolic (mm Hg) 55 02/05/2017 [facility] Respitory Rate 16 02/05/2017 [facility] Systolic (mm Hg) 151 02/05/2017 [facility] Diastolic (mm Hg) 54 02/05/2017 [facility] Respitory Rate 16 02/05/2017 [facility] Temperature Oral (F) 98.0 F 02/05/2017 [facility] Heart Rate 67 02/05/2017 [facility] Systolic (mm Hg) 148 02/05/2017 [facility] Diastolic (mm Hg) 66 02/05/2017 [facility] Heart Rate 68 02/05/2017 [facility] Temperature Oral (F) 97.5 F 02/05/2017 [facility] Weight 102.909 02/04/2017 [facility] BMI Calculated 36.62 02/04/2017 [facility] Height 167.64 cm 02/04/2017 [facility] Height 167.64 cm 02/04/2017 [facility] Weight 100 02/04/2017 [facility] BMI Calculated 35.58 02/04/2017 [facility] Weight 101.364 06/26/2016 [facility] BMI Calculated 36.07 06/26/2016 [facility] [place] Height 167.64 cm 06/26/2016 [facility] [place] Weight 232 05/08/2016 [facility] Height 66 05/08/2016 [facility] Heart Rate 82 05/08/2016 [facility] Diastolic (mm [...] Assoc Temperature Oral (F) 98.2 F 01/11/2016 [facility] Temperature Oral (F) 97.2 F 01/11/2016 [facility] Respitory Rate 16 01/11/2016 [facility] Systolic (mm Hg) 154 01/11/2016 [facility] Diastolic (mm Hg) 69 01/11/2016 [facility] [place] Temperature Oral (F) 97.0 F 01/11/2016 [facility] Systolic (mm Hg) 135 01/11/2016 [facility] [place] Diastolic (mm Hg) 70 01/11/2016 [facility] [place] Systolic (mm Hg) 124 01/11/2016 [facility] Diastolic (mm Hg) 61 01/11/2016 [facility] BMI Calculated 35.19 01/11/2016 [facility] Weight 98.892 01/11/2016 [facility] [place] Height 167.64 cm 01/11/2016 [facility] Respitory Rate 41 01/11/2016 [facility] Respitory Rate 20 01/11/2016 [facility] Heart Rate 80 01/10/2016 [facility] [place] Heart Rate 80 01/10/2016 [facility] Weight 224 12/22/2015 [facility] Height 66 12/22/2015 [facility] Heart Rate 77 12/22/2015 [facility] Diastolic (mm Hg) 80 12/22/2015 [facility] Systolic (mm Hg) 134 12/22/2015 [facility] Respitory Rate 19 11/11/2015 [facility] Systolic (mm Hg) 151 11/11/2015 [facility] Diastolic (mm Hg) 68 11/11/2015 [facility] Respitory Rate 17 11/11/2015 [facility] Systolic (mm Hg) 165 11/11/2015 [facility] Diastolic (mm Hg) 74 11/11/2015 [facility] Respitory Rate 23 11/11/2015 [facility] Systolic (mm Hg) 144 11/11/2015 [facility] Diastolic (mm Hg) 74 11/11/2015 [facility] Temperature Oral (F) 98 F 11/11/2015 [facility] BMI Calculated 37.2 11/10/2015 [facility] Weight 104.545 11/10/2015 [facility] Heart Rate 116 11/10/2015 [facility] Temperature Oral (F) 97.7 F 11/10/2015 [facility] Height 167.64 cm 11/10/2015 [facility] Weight 227 11/02/2015 [facility] FIRER TUNNEL KILN-chest discomfort [id number] 11/02/2015 11/02/2015 [facility] FIRER TUNNEL KILN-chest discomfort [id number] 11/02/2015 11/02/2015 [facility] FIRER TUNNEL KILN-chest discomfort [id number] 11/02/2015 11/02/2015 [facility] FIRER TUNNEL KILN-chest discomfort [id number] 11/02/2015 11/02/2015 [facility] FIR[employer] TUNNEL KILN-chest discomfort [id number] 11/02/2015 11/02/2015 [facility] [employer] TUNNEL KILN-chest discomfort [id number] 11/02/2015 11/02/2015 [facility] [employer] TUNNEL KILN-chest discomfort [id number] 11/02/2015 11/02/2015 [facility] [employer] TUNNEL KILN-chest discomfort [id number] 11/02/2015 11/02/2015 [facility] FIRER TUNNEL KILN-chest discomfort [id number] 11/02/2015 11/02/2015 [facility] FIRER TUNNEL KILN-chest discomfort [id number] 11/02/2015 11/02/2015 [facility] FIR[employer] TUNNEL KILN-chest discomfort [id number] 11/02/2015 11/02/2015 [facility] FIRER TUNNEL KILN-chest discomfort [id number] 11/02/2015 11/02/2015 [facility] FIRER TUNNEL KILN-chest discomfort [id number] 11/02/2015 11/02/2015 [facility] FIR[employer] TUNNEL KILN-chest discomfort [id number] 11/02/2015 11/02/2015 [facility] FIRER TUNNEL KILN-chest discomfort [id number] 11/02/2015 11/02/2015 [facility] [facility] FIRER TUNNEL KILN-chest discomfort [id number] 11/02/2015 11/02/2015 [facility] FIRER TUNNEL KILN-chest discomfort [id number] 11/02/2015 11/02/2015 [facility] Unknown [id number] 11/08/2015 11/08/2015 [facility] Unknown [id number] 11/08/2015 11/08/2015 [facility] Unknown [id number] 11/08/2015 11/08/2015 [facility] Unknown [id number] 11/08/2015 11/08/2015 [facility] Unknown [id number] 11/08/2015 11/08/2015 [facility] Unknown [id number] 11/08/2015 11/08/2015 [facility] Unknown [id number] 11/08/2015 11/08/2015 [facility] Unknown [id number] 11/08/2015 11/08/2015 [facility] Unknown [id number] 11/08/2015 11/08/2015 [facility] Unknown [id number] 11/08/2015 11/08/2015 [facility] Unknown [id number] 11/08/2015 11/08/2015 [facility] Unknown [id number] 11/08/2015 11/08/2015 [facility] Unknown [id number] 11/08/2015 11/08/2015 [facility] Unknown [id number] 11/08/2015 11/08/2015 [facility] Unknown [id number] 11/08/2015 11/08/2015 [facility] Unknown [id number] 11/08/2015 11/08/2015 [facility] Outpatient [id number] ROCÍO PACKER 11/10/2015 Active [facility] Inpatient [id number] Rosa M Bell 11/10/2015 11/11/2015 [facility] Needs referral [id number] 11/15/2015 11/15/2015 [facility] Needs referral [id number] 11/15/2015 11/15/2015 [facility] Needs referral [id number] 11/15/2015 11/15/2015 [facility] Needs referral [id number] 11/15/2015 11/15/2015 [facility] Needs referral [id number] 11/15/2015 11/15/2015 [facility] Needs referral [id number] 11/15/2015 11/15/2015 [facility] Needs referral [id number] 11/15/2015 11/15/2015 [facility] Needs referral [id number] 11/15/2015 11/15/2015 [facility] Needs referral [id number] 11/15/2015 11/15/2015 [facility] Needs referral [id number] 11/15/2015 11/15/2015 [facility] Needs referral [id number] 11/15/2015 11/15/2015 [facility] Needs referral [id number] 11/15/2015 11/15/2015 [facility] Needs referral [id number] 11/15/2015 11/15/2015 [facility] Needs referral [id number] 11/15/2015 11/15/2015 [facility] Needs referral [id number] 11/15/2015 11/15/2015 [facility] Follow up ~ Had heart attack [id number] 12/22/2015 12/22/2015 [facility] Follow up ~ Had heart attack [id number] 12/22/2015 12/22/2015 [facility] Follow up ~ Had heart attack [id number] 12/22/2015 12/22/2015 [facility] Follow up ~ Had heart attack [id number] 12/22/2015 12/22/2015 [facility] Follow up ~ Had heart attack [id number] 12/22/2015 12/22/2015 [facility] Follow up ~ Had heart attack [id number] 12/22/2015 12/22/2015 [facility] Follow up ~ Had heart attack [id number] 12/22/2015 12/22/2015 [facility] Follow up ~ Had heart attack [id number] 12/22/2015 12/22/2015 [facility] Follow up ~ Had heart attack [id number] 12/22/2015 12/22/2015 [facility] Follow up ~ Had heart attack [id number] 12/22/2015 12/22/2015 [facility] Follow up ~ Had heart attack [id number] 12/22/2015 12/22/2015 [facility] Follow up ~ Had heart attack [id number] 12/22/2015 12/22/2015 [facility] Follow up ~ Had heart attack [id number] 12/22/2015 12/22/2015 [facility] Follow up ~ Had heart attack [id number] 12/22/2015 12/22/2015 [facility] medication [id number] 12/23/2015 12/23/2015 [facility] medication [id number] 12/23/2015 12/23/2015 [facility] medication [id number] 12/23/2015 12/23/2015 [facility] medication [id number] 12/23/2015 12/23/2015 [facility] medication [id number] 12/23/2015 12/23/2015 [facility] medication [id number] 12/23/2015 12/23/2015 [facility] medication [id number] 12/23/2015 12/23/2015 [facility] medication [id number] 12/23/2015 12/23/2015 [facility] medication [id number] 12/23/2015 12/23/2015 [facility] medication [id number] 12/23/2015 12/23/2015 [facility] medication [id number] 12/23/2015 12/23/2015 [facility] medication [id number] 12/23/2015 12/23/2015 [facility] medication [id number] 12/23/2015 12/23/2015 [facility] Unknown [id number] 12/31/2015 12/31/2015 [facility] Unknown [id number] 12/31/2015 12/31/2015 [facility] Unknown [id number] 12/31/2015 12/31/2015 [facility] Unknown [id number] 12/31/2015 12/31/2015 [facility] Unknown [id number] 12/31/2015 12/31/2015 [facility] Unknown [id number] 12/31/2015 12/31/2015 [facility] Unknown [id number] 12/31/2015 12/31/2015 [facility] Unknown [id number] 12/31/2015 12/31/2015 [facility] Unknown [id number] 12/31/2015 12/31/2015 [facility] Unknown [id number] 12/31/2015 12/31/2015 [facility] Unknown [id number] 12/31/2015 12/31/2015 [facility] Unknown [id number] 12/31/2015 12/31/2015 [facility] Inpatient [id number] [facility] 01/10/2016 01/11/2016 [facility] Follow up after er [id number] 01/25/2016 01/25/2016 [facility] Follow up after er [id number] 01/25/2016 01/25/2016 [facility] Follow up after er [id number] 01/25/2016 01/25/2016 [facility] Follow up after er [id number] 01/25/2016 01/25/2016 [facility] Follow up after er [id number] 01/25/2016 01/25/2016 [facility] Follow up after er [id number] 01/25/2016 01/25/2016 [facility] Follow up after er [id number] 01/25/2016 01/25/2016 [facility] Follow up after er [id number] 01/25/2016 01/25/2016 [facility] Follow up after er [id number] 01/25/2016 01/25/2016 [facility] Follow up after er [id number] 01/25/2016 01/25/2016 [facility] Unknown [id number] 01/25/2016 01/25/2016 [facility] Unknown [id number] 01/25/2016 01/25/2016 [facility] Unknown [id number] 01/25/2016 01/25/2016 [facility] Unknown [id number] 01/25/2016 01/25/2016 [facility] Unknown [id number] 01/25/2016 01/25/2016 [facility] Unknown [id number] 01/25/2016 01/25/2016 [facility] Unknown [id number] 01/25/2016 01/25/2016 [facility] Unknown [id number] 01/25/2016 01/25/2016 [facility] Unknown [id number] 01/25/2016 01/25/2016 [facility] Unknown [id number] 01/25/2016 01/25/2016 [facility] Unknown [id number] 01/25/2016 01/25/2016 [facility] cough and congestion [id number] 02/22/2016 02/22/2016 [facility] cough and congestion [id number] 02/22/2016 02/22/2016 [facility] cough and congestion [id number] 02/22/2016 02/22/2016 [facility] cough and congestion [id number] 02/22/2016 02/22/2016 [facility] cough and congestion [id number] 02/22/2016 02/22/2016 [facility] cough and congestion [id number] 02/22/2016 02/22/2016 [facility] cough and congestion [id number] 02/22/2016 02/22/2016 [facility] cough and congestion [id number] 02/22/2016 02/22/2016 [facility] cough and congestion [id number] 02/22/2016 02/22/2016 [facility] Unknown [id number] 02/27/2016 02/27/2016 [facility] Unknown [id number] 02/27/2016 02/27/2016 [facility] Unknown [id number] 02/27/2016 02/27/2016 [facility] Unknown [id number] 02/27/2016 02/27/2016 [facility] Unknown [id number] 02/28/2016 02/28/2016 [facility] Unknown [id number] 02/28/2016 02/28/2016 [facility] Unknown [id number] 02/28/2016 02/28/2016 [facility] Unknown [id number] 02/28/2016 02/28/2016 [facility] Refill [id number] 04/04/2016 04/04/2016 [facility] Refill [id number] 04/04/2016 04/04/2016 [facility] Refill [id number] 04/04/2016 04/04/2016 [facility] Refill [id number] 04/04/2016 04/04/2016 [facility] Refill [id number] 04/04/2016 04/04/2016 [facility] Refill [id number] 04/04/2016 04/04/2016 [facility] Refill [id number] 04/04/2016 04/04/2016 [facility] med refill [id number] 05/08/2016 05/08/2016 [facility] med refill [id number] 05/08/2016 05/08/2016 [facility] med refill [id number] 05/08/2016 05/08/2016 [facility] med refill [id number] 05/08/2016 05/08/2016 [facility] med refill [id number] 05/08/2016 05/08/2016 [facility] med refill [id number] 05/08/2016 05/08/2016 [facility] Unknown [id number] 06/06/2016 06/06/2016 [facility] Unknown [id number] 06/06/2016 06/06/2016 [facility] Unknown [id number] 06/06/2016 06/06/2016 [facility] Unknown [id number] 06/06/2016 06/06/2016 [facility] Unknown [id number] 06/06/2016 06/06/2016 [facility] Outpatient [id number] Sha Cortez Bosch 06/26/2016 06/27/2016 [facility] Unknown [id number] 08/06/2016 08/06/2016 [facility] Unknown [id number] 08/06/2016 08/06/2016 [facility] Unknown [id number] 08/06/2016 08/06/2016 [facility] Unknown [id number] 08/06/2016 08/06/2016 [facility] refills [id number] 08/14/2016 08/14/2016 [facility] refills [id number] 08/14/2016 08/14/2016 [facility] refills [id number] 08/14/2016 08/14/2016 [facility] Outpatient [id number] Hugo Dutta 08/14/2016 08/15/2016 [facility] Unknown [id number] 10/29/2016 10/29/2016 [facility] Unknown [id number] 10/29/2016 10/29/2016 [facility] Unknown [id number] 11/30/2016 11/30/2016 [facility] Observation [id number] Amir Kevinebranious 02/04/2017 02/05/2017 [facility] Inpatient [id number] Amir Ghebranious 03/14/2017 03/17/2017 [facility] Outpatient [id number] Sha Cortez Bosch 12/07/2017 12/08/2017 [facility] Procedures Procedure Code Date Perfomer Comments Source Cystectomy<sup>1</sup> [id number] 09/23/1967 spine [facility] Appendectomy [id number] 09/23/1963 [facility] CABG x 3 - Coronary artery bypass grafts x 3 [id number] [facility] Stent placement [id number] [facility] CABG x 3 - Coronary artery bypass grafts x 3 [id number] [facility] Stent placement [id number] [facility] Stent placement<sup>2</sup> [id number] total x7 [facility] Assessment and Plan Assessment and Plan [...] 0.9% INJ 100 mL 1 gm, IVPB, [id number] clopidogrel 75 mg TAB 75 mg 1 [...] will continue to follow with you 03/17/2017 [facility] Extracted from:Title: Clinical Document Author: Meenakshi Chaidez MD Date: 02/05/17 Progress Note - Daily [facility] Completed: Sunday, FEBRUARY 05, 2017, [...] EXAM PLAN and TREATMENT DIAGNOSES and PROBLEMS [id number] Ready for Discharge (Yes/No)? TEACHING ATTESTATION Extracted from:Title: CARDIOLOGY Author: Sha Galeano MD Date: 02/04/17 [place] [facility] MD Dr. Chidi Garcia [address] [address], [address] [place], [place], [address] Office: [phone] REASON FOR CONSULT: CV management REQUESTING MD: [...] Primary managing Will continue to follow. 02/05/2017 [facility] Extracted from:Title: CIMU Discharge Summary Author: Yamileth Mendoza MD Date: 01/11/16 Discharge Summary Name: Minna Gruber Record Number: [id number] Admission Date: 01/10/2016 Discharge Date: 01/11/2016 Admit [...] a heart cath 2 months ago @ [facility] however no stents were placed. Pt saw his cardiology ([facility] visual effects artist: Dr. Sha Cortez) 2 days prior and [...] and hemodynamically stable. De will call his [facility] to reschedule his appointment and will follow [...] Diet: Diabetic Activity: As tolerated Follow up: [facility] Dr. Cortez and PCP Yamileth Major MD [...] ppx - Ambulation/GIRISH/SCD for DVT ppx 01/11/2016 [facility] Plan of Care No Data Provided for This Section Social History Social History Date Source Social History ElementQualifiersDate Reported Last Colonoscopy: . has appointment on 08/2016Aug 14, 2016 Ethnicity . Status , Is sami your primary language? Yes Aug 14, 2016 [...] How often? Rarely Aug 14, 2016 08/14/2016 [facility] Social History [...] Fair condition. Exercise type: Walking. 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 Activity level: Occasional physical work. Operates hazardous equipment: No. Alcohol Past Smoking Status Never smoker; Exposure to Tobacco Smoke None; Cigarette Smoking Last 365 Days No; Reg Smoking Cessation Counseling No 12/14/2014 [facility] Social History TypeResponse Substance Abuse Use: None. [...] Fair condition. Exercise type: Walking. 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 Activity level: Occasional [...] 03/14/17 16 pack every other day 12/14/2014 [facility] Family History Value Date Source QualifierDescriptionCommentDate [...]
[2019-04-17 22:45] VITALS: BP 191/85
[2019-04-17 22:50] VITALS: BP 193/81
--- NOTE | 2019-04-17 22:50 | NUR ---
Received patient from ER via stretcher. AAOx3, no s/s of resp distress. Denies n/v/d, and pain at this time. Arrived to unit with tele SR @82. Bed locked in lowest position, and alarm on. Call light within reach and instructed to call for assistance.
[2019-04-17 23:14] VITALS: BP 193/81
[2019-04-18] VITALS (7 sets, daily range): BP systolic 136–176; BP diastolic 55–90
[2019-04-18 05:24] LABS: BASOPHILS % 0.1 % (0.0-1.0); HEMATOCRIT 37.8 % (38.2-49.6); HEMOGLOBIN 12.3 g/dL (14.0-18.0); MEAN CORPUSCULAR HEMOGLOBIN 29.7 pg (28-32); MEAN CORPUSCULAR HGB CONC 32.5 g/dL (31-35); MEAN CORPUSCULAR VOLUME 91.3 fL (81-99); MONOCYTES # (AUTO) 0.5 (0.2-0.8); MONOCYTES % 4.7 % (4.4-11.3); NEUTROPHILS # (AUTO) 8.3 (2.1-6.9); NEUTROPHILS % 84.9 % (38.7-80.0); PLATELET COUNT 176 x10e3/uL (140-360); RED BLOOD COUNT 4.14 x10e6/uL (4.3-5.7); RED CELL DISTRIBUTION WIDTH 12.2 % (11.7-14.4)
[2019-04-18] MEDS: NITROGLYCERIN 2% OINT 1 GM PKT TOP SCH ×3 (05:24→12:33)
[2019-04-18 05:47] LABS: ALANINE AMINOTRANSFERASE 15 IU/L (0-55); ALBUMIN 3.1 g/dL (3.5-5.0); ALBUMIN/GLOBULIN RATIO 0.8 (0.8-2.0); ALKALINE PHOSPHATASE 88 IU/L (40-150); ANION GAP 14.7 mmol/L (8-16); BLOOD UREA NITROGEN 20 mg/dL (7-26); BUN/CREATININE RATIO 20 (6-25); CALCIUM 8.9 mg/dL (8.4-10.2); CARBON DIOXIDE 25 mmol/L (22-29); CHLORIDE 104 mmol/L (98-107); CHOL/HDL RATIO 3.1 (3.9-4.7); CHOLESTEROL 145 MD/DL (0-199); CREATININE, SERUM 1.01 mg/dL (0.72-1.25); EST GLOMERULAR FILTRATION RATE > 60 ML/MIN (60-); GLUCOSE 314 mg/dL (74-118); HDL CHOLESTEROL 47 MG/DL (40-60); LDL CHOLESTEROL 85 MG/DL (60-130); POTASSIUM 4.7 mmol/L (3.5-5.1); SODIUM 139 mmol/L (136-145); TRIGLYCERIDES 66 MG/DL (0-149)
[2019-04-18 06:12] LABS: CREATINE KINASE MB 27.4 ng/mL (0-5.0)
--- NOTE | 2019-04-18 06:18 | NUR ---
Elevated cardiac enzymes. Called Dr. Manriquez and received orders.
[2019-04-18] MEDS ORDERED: CLOPIDOGREL BISULFATE 75 MG TAB PO ONE (06:30)
[2019-04-18] MEDS ORDERED: SODIUM CHLORIDE 0.9% 1000ML 1,000 ML IV SCH ×2 (07:20→10:08)
[2019-04-18] MEDS: INSULIN REGULAR, HUMAN 100 UNIT/1 ML 3ML VIAL SQ SCH ×3 (07:30→16:42)
[2019-04-18] MEDS: METOPROLOL TARTRATE 25 MG TAB PO SCH ×2 (08:33→16:41)
[2019-04-18] MEDS ORDERED: LIDOCAINE HCL 2% LOCAL 20 ML VIAL ONE (08:38)
[2019-04-18] MEDS ORDERED: HEPARIN SOD (PORCINE) 1000 UNIT/ML 30ML ONE (08:38)
[2019-04-18] MEDS ORDERED: IOPAMIDOL 370 MG/ML 200 ML INFUS..BTL INJ ONE (08:40)
[2019-04-18] MEDS ORDERED: SODIUM CHLORIDE 0.9% 1000ML 1,000 ML ONE (08:40)
[2019-04-18] MEDS ORDERED: HEPARIN SOD/SOD CHLORIDE 2,000 ML ONE (08:40)
--- NOTE | 2019-04-18 08:50 | NUR ---
PT OFF UNIT FOR HEART CATH AT THIS TIME
[2019-04-18] MEDS ORDERED: CLOPIDOGREL BISULFATE 75 MG TAB PO SCH (09:00)
[2019-04-18] MEDS ORDERED: ASPIRIN 81 MG ENTERIC COATED PO SCH (09:00)
[2019-04-18] MEDS ORDERED: MIDAZOLAM HCL 2 MG/2 ML VIAL ONE (09:18)
[2019-04-18] MEDS ORDERED: FENTANYL CITRATE/PF 100MCG/2 ML INJ ONE (09:18)
[2019-04-18] MEDS ORDERED: NITROGLYCERIN/D5W 200 MCG/ML 250 ML ONE (09:18)
[2019-04-18] MEDS: FAMOTIDINE 20 MG/2 ML VIAL IV SCH (09:31)
[2019-04-18] MEDS ORDERED: ONDANSETRON HCL INJ 2MG/ML 2ML 2 MG/ML VIAL IV PRN (10:15)
--- NOTE | 2019-04-18 10:20 | NUR ---
SPOKE WITH MD JONES WHO STATES NO STENTS WERE PLACED PT IS TO REMAIN IN BED REST FOR 6 HOURS AFTER HEART CATH AWAITING FOR PT TO ARRIVE TO FLOOR
--- NOTE | 2019-04-18 10:34 | NUR ---
PT BACK FROM [facility] ON BED REST AA0X3. PT IS IN NO S.S OF DISTRESS. DENIES PAIN PT IS ON TELEMETRY RIGHT GROIN IS DRY AND INTACT PEDAL PULSES PRESENT WILL CONTINUE TO MONITOR
[2019-04-18] MEDS ORDERED: AMLODIPINE BESYLATE 5 MG TAB PO SCH (10:45)
[2019-04-18] MEDS: GABAPENTIN 300 MG CAP PO SCH ×2 (10:52→16:41)
--- NOTE | 2019-04-18 10:59 | Consultation ---
DATE OF CONSULTATION: 04/18/2019 REASON FOR CONSULTATION: Chest pain. Elevated troponin. CHIEF COMPLAINT: Chest pain. HISTORY OF PRESENT ILLNESS: This is a 73-year-old male with history of CAD, status post CABG in about 1999 with multiple PCIs since then, hypertension, diabetes, hyperlipidemia, and neuropathy. The patient presents to [facility] ER with complaints of chest pain. On labs noted, troponin of 5 and now 27. Cardiology was consulted. The patient was seen in the room. Reports has been having chest pain since yesterday, pressure sensation, retrosternal, radiating into his left shoulder with some shortness of breath and diaphoresis. Currently, continues with mild chest pain. I had long discussion with the patient regarding left heart catheterization. PAST MEDICAL HISTORY: CAD, status post CABG in 1999 with multiple PCIs since then, diabetes, hyperlipidemia, neuropathy, obesity, degenerative joint disease. PAST SURGICAL HISTORY: CABG in 1999 and multiple PCI since then. Of note, the patient had left heart catheterization in 2016, which showed patent SVG to OM, and patent SVG to RCA, also showed occluded GUERIN to LAD with documented 50% ramus and 50% LAD occlusion. Appendectomy and pilonidal cyst removal. SOCIAL HISTORY: He is . He is retired. 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 Denies any alcohol use, tobacco use. FAMILY HISTORY: Apparently, his father with history of CAD. Mother with history of diabetes. Multiple siblings with CAD. Reports two sisters from cancer. One sister from CAD. One brother from CAD and reports one brother was shot. HOME MEDICATIONS: 1. Amlodipine 2.5 mg daily. 2. Aspirin 81 mg daily. 3. Clopidogrel 75 mg daily. 4. Lasix 40 mg daily. 5. Gabapentin 600 mg b.i.d. 6. Glimepiride 4 mg daily. 7. Novolin 70/30, 60 units subcu daily. 8. Isosorbide mononitrate 120 mg daily. 9. Metoprolol succinate 50 mg daily. 10. Rosuvastatin 40 mg at bedtime. 11. Sertraline 25 mg daily. ALLERGIES: NO KNOWN ALLERGIES. REVIEW OF SYSTEMS: GENERAL: Denies any fevers, chills, night sweats, any weakness or fatigue. SKIN: Denies any rashes or sores. HEENT: Denies any vomiting, vision changes, blurred vision, double vision, ear aches, ear drainage, epistaxis, sore throat, swollen neck. CARDIAC: Positive for chest pain as above. Positive dyspnea on exertion. Denies any orthopnea, PND. Denies any lower extremity edema. RESPIRATORY: Positive for shortness of breath. Denies any hemoptysis. GASTROINTESTINAL: Reports good appetite. Positive for nausea. Denies any vomiting. Denies any hematochezia. Denies any melena. GENITOURINARY: Denies any dysuria or hematuria. Positive for frequency and urgency. VASCULAR: Denies any lower extremity edema or claudication. MUSCULOSKELETAL: Positive for muscle, multiple joint pain, aches. NEUROLOGIC: Positive for numbness, tingling in lower extremities. Denies any blackout or seizures. HEMATOLOGY: Denies any anemia. Positive for bruising. ENDOCRINE: Denies any heat or cold intolerance. Positive for polydipsia. PHYSICAL EXAMINATION: VITAL SIGNS: Temperature 97.7, pulse 91, respiratory rate 22, blood pressure 165/89, and pulse ox 98% on 2 L nasal cannula. GENERAL: Appears stated age, currently with mild chest pain. SKIN: No rashes or bruises noted. HEENT: Normocephalic. Pupils equal, round, and reactive. Extraocular movements intact. Trachea midline. Soft carotid bruits bilaterally. HEART: Regular rate and rhythm. Positive systolic murmur auscultated in right upper sternal border. PMI about 5th intercostal space. LUNGS: Bilateral breath sounds clear to auscultation. ABDOMEN: Soft, nontender, and nondistended. No organomegaly noted. MUSCULOSKELETAL: Good muscle strength throughout. VASCULAR: +2 bilateral radial pulses, +1 DP, PT pulses bilaterally. NEUROLOGIC: Cranial nerves II through XII seem intact. LABORATORY DATA: Sodium 139, potassium 4.7, chloride 104, bicarb 24, BUN 20, creatinine 1.0, glucose 314. Troponins initially 0.001, next 0.2, next 9.5. EKG showing sinus rhythm with some mild ST depressions in the inferolateral leads. Chest x-ray showing mild bilateral interstitial edema. ASSESSMENT: 1. Iad-IK-ucqrlqqnx myocardial infarction. 2. History of coronary artery disease, status post coronary artery bypass grafting. The patient also status post multiple percutaneous coronary interventions since. 3. Diabetes, uncontrolled. 4. Hypertension. 5. Hyperlipidemia. 6. Obesity. PLAN: 1. The patient presents with chest pain with elevated troponins, non-STEMI. Continues with having chest pain, currently. Left heart catheterization discussed at length including risks and benefits. Questions answered. The patient wishes to proceed with left heart catheterization. 2. Aspirin, Plavix, beta-willow, and nitrate, we will continue. 3. We will go ahead and get an echo to evaluate heart function and structure. 4. We will go ahead and get a carotid Doppler to evaluate carotid bruits that were auscultated. 5. Further recommendations post left heart catheterization. Thank you very much for this consult. Dictated by Allen Guadalupe NP Aury Manriquez MD DC/RUDY /[id number]
[2019-04-18] MEDS ORDERED: SERTRALINE HCL 50 MG TAB PO SCH (11:00)
[2019-04-18] MEDS ORDERED: ISOSORBIDE MONONITRATE 30 MG TAB CR PO SCH (11:00)
--- NOTE | 2019-04-18 11:39 | Operative Report ---
DATE OF PROCEDURE: 04/18/2019 SURGEON: Milagro Manriquez MD CARDIAC CATHETERIZATION REPORT PROCEDURES PERFORMED: 1. Left heart cardiac catheterization with coronary angiography. 2. Left ventriculography. 3. Bypass graft angiography. 4. Vascade closure of the right common femoral arteriotomy. INDICATION FOR PROCEDURE: This is a 73-year-old gentleman with history of hypertension, hypercholesteremia, and coronary artery disease with prior history of CABG, presents to this institution with chest pain and troponin elevation compatible with non-ST elevation myocardial infarction. DESCRIPTION OF PROCEDURE: After risks, benefits, pros and cons of today's procedure explained, the patient agreed to proceed. The patient was brought to the cardiac catheterization laboratory, where the right wrist was prepped in the usual sterile fashion. A 1% lidocaine solution was used in the right groin region and access to the right femoral artery was obtained and a 4-Bolivian femoral sheath was placed. Selective coronary angiography of the left and right groin was performed with JL4 and 3DRC diagnostic catheters. The JL5 was later utilized for better visualization of the left coronary artery. We utilized a 3DRC catheter to engage the saphenous vein graft to the RCA as well as the saphenous vein graft to the OM, which are both 100% osteally occluded. This catheter was also utilized for GUERIN to LAD and injection which was noted to be patent. Overall at that point in time, we attempted to cross the aortic valve with a pigtail catheter. However, there was noted to be a significant jet and difficulty crossing. We took the JL5 diagnostic catheter and were able to cross the valve with a J-wire and the catheter was placed in the ventricle. Ventriculography was performed and hemodynamic assessment of ventricular filling pressures as well as a pullback gradient was performed. In short, the patient has complex wales coronary artery disease with only bypass graft being the GUERIN to LAD. There were no straight forward targets for revascularization and there was no high-grade occlusion. There was rapid moderate to severe distal tapering of the coronary branches. We decided to treat him medically. At the conclusion of case, femoral angiogram was performed revealing femoral artery sickness and a 5-Bolivian vascular closure device successfully deployed achieving hemostasis. COMPLICATIONS: None. ESTIMATED BLOOD LOSS: Minimal. FINDINGS: 1. Left main has a 40% diffuse stenosis, gives rise to an LAD, ramus intermedius, and circumflex branch. 2. LAD has a 70%-80% proximal stenosis. It is occluded in its mid segment. The mid to distal LAD is seen, filled by GUERIN graft. 3. The ramus intermedius is moderate caliber vessel with 70% proximal stenosis. 4. The circumflex artery terminates into a mid marginal branch. This vessel has a 70% ostial proximal stenosis. The remainder of this vessel has diffuse moderate disease. 5. RCA is dominant, gives rise to right PDA and right PLV. There is extensive stenting, probably 5 or 6 stents going from the ostial circumflex artery to the mid to distal circumflex artery. There is a 50% ostial proximal stenosis as well as a 50% mid to distal stenosis. The remainder of the right PDA and right PLV branches are with mild diffuse disease. 6. Left ventricular ejection fraction is 50%, and there is a 30 mm pullback gradient across aortic valve compatible with moderate aortic stenosis. 7. The GUERIN to LAD graft is patent. The grafted LAD is with diffuse moderate disease. 8. Saphenous vein graft to the OM vessel is 100% ostial occluded. 9. Saphenous vein graft to the right PDA is 100% occluded. PLAN/RECOMMENDATIONS: 1. The patient has underlying complex coronary artery disease. We will just recommend risk factor modification medical therapy. 2. A 6-hour bedrest post catheterization today. 3. We will check echocardiogram to evaluate his aortic stenosis severity. 4. Overall, again, treatment is largely going to be medical. MD GEOFFREY Fernandez/RUDY /[id number]
--- NOTE | 2019-04-18 13:34 | NUR ---
Nutrition Screen Note RD Recommendation for Physician: Continue diet as ordered Plan of Care: RD following, monitoring for tolerance and adequacy Nutrition reason for involvement: Nutrition Risk Trigger - MST Primary Diagnose(s): Chest pain PMH:T2DM Ht: 66 in Wt: 223lb BMI: 36 kg/m2 IBW:142lb +/-10% RD Assessment: (04/18/2019) Chart reviewed. Labs and meds reviewed. Initial encounter with patient. Pt was eating well DIRECTOR DECISION SUPPORT and has a good appetite PO intake currently. Denies any difficulty chewing or swallowing nor has any N,V,D. No wt changes. Current Diet: ADA diet Malnutrition Evaluation (04/18/2019) The patient does not meet criteria for a specified degree of malnutrition at this time. Will re-evaluate at follow-up as appropriate. Diet Education Needs Assessment: Diet education not indicated. Nutrition Care Level: Low Signed: Demond Portillo RD, LD, [facility]
[2019-04-18 15:46] LABS: CREATINE KINASE MB 21.8 ng/mL (0-5.0)
--- NOTE | 2019-04-18 16:03 | NUR ---
BED REST COMPLETE DRESSING REMAINS DRY PT IS SITTING UP IN THE BED
[2019-04-18] MEDS ORDERED: LISINOPRIL2.5 MG PO (16:46)
[2019-04-18] MEDS ORDERED: FUROSEMIDE 40 MG TAB PO SCH (17:00)
--- NOTE | 2019-04-18 17:06 | NUR ---
DISCHARGE INSTRUCTIONS AND PRESCRIPTIONS GIVEN. PT VERBALIZED UNDERSTANDING RIGHT GROIN REMAINS DRY AND INTACT BILATERAL PULSES PRESENT PT IS GETTING DRESSED TO GO HOME AT THIS TIME
--- NOTE | 2019-04-18 17:26 | NUR ---
PT OFF UNIT TO HOME
--- NOTE | 2019-04-18 18:46 | History and Physical ---
CHIEF COMPLAINT: Chest pain. HISTORY OF PRESENT ILLNESS: This is a 73-year-old male, morbidly obese with history of type 2 diabetes, hypertension, hyperlipidemia, and depression, presents after being discharged yesterday with complaints of lower back pain, found to be negative, discharged to home, went to a local restaurant, started complaining of chest pain that began substernally. The patient had significant cardiac history in the past with the stents placed in the past. The patient reports substernal chest pain, radiation to the left shoulder and arm. Denies any diaphoresis or any nausea or vomiting. The patient then came into the ER for further evaluation and Cardiology was consulted. The patient underwent a left heart catheterization that shows diffuse disease and there is no PCI needed or indicated at this time. At this time, Cardiology recommended medical management. The patient was seen and evaluated at bedside on the medical floor. He is currently doing well. No other complaints at this time. REVIEW OF SYSTEMS: Pertinent positives: Chest pain. Pertinent negatives: Denies any palpitation, nausea, vomiting, diarrhea, dysuria, hematuria, frequency, urgency, lightheadedness, dizziness, abdominal pain, headaches, shortness of breath, cough, congestion, fever, or any other complaints. The rest of the 14-point review of systems have been reviewed with the patient and are negative. ALLERGIES: NO KNOWN DRUG ALLERGIES. PAST MEDICAL HISTORY: Hypertension, peripheral neuropathy, depression, hyperlipidemia, type 2 diabetes. PAST SURGICAL HISTORY: He has had multiple left heart catheterization replacement. He also had a CABG in the past. FAMILY HISTORY: Hypertension and diabetes. SOCIAL HISTORY: No drugs. No alcohol. Does not smoke. Good social support. PHYSICAL EXAMINATION: VITAL SIGNS: Temperature is 96, pulse 68, respiratory rate is 22, blood pressure 150/66, and pulse ox 96% on room air. GENERAL: Not in acute distress. Alert and oriented x3. Cooperative on examination. HEENT: Head; normocephalic, atraumatic. Eyes; pupils are equal, round, and reactive to light bilaterally. Extraocular movements intact bilaterally. Throat; no evidence of erythema or exudates in the posterior pharynx. Has poor dentition. NECK: Supple. Good range of motion. PULMONARY: Clear to auscultation bilaterally. No wheezing, rales, rhonchi, or crackles appreciated. CARDIOVASCULAR: Positive S1 and S2. No murmurs, rubs, or gallops appreciated. ABDOMEN: Soft, nondistended, and nontender to palpation. Bowel sounds present. MUSCULOSKELETAL: Strength is 5/5 throughout. No evidence of any muscle deficits on examination. No weakness appreciated. NEUROLOGIC: Cranial nerve II through XII grossly intact. No evidence of any neurological deficits on exam. SKIN: Intact. Warm to touch. Good cap refill. PSYCHIATRIC: Normal affect and mood. EXTREMITIES: No edema. Good range of motion throughout. LAB FINDINGS: White count 9.7, hemoglobin 12.2, hematocrit 37.8, platelets of 178. Coagulation; D-dimer is 247, which was within normal range. Chemistry; sodium is 139, potassium is 4.7, chloride is 104, bicarbonate is 24, BUN is 20, creatinine was 1, glucose was 314. LFTs were within normal range. Troponins were elevated, last one was 6.3, though peak at 9.5, albumin was 3.1. LDL was 85. TSH 0.762. MICROBIOLOGY: None. IMAGING STUDIES: Chest x-ray, mild bilateral interstitial edema. Carotid ultrasound. A 2D echo showed EF of 40% to 45%. Carotid ultrasound seems to be negative, showed some mild disease. IMPRESSION: 1. Chest pain, rule out acute coronary syndrome with elevated troponin. 2. Left heart catheterization with no intervention needed. 3. Hypertension. 4. History of coronary artery bypass grafting in the past. 5. Type 2 diabetes, uncontrolled. 6. Hyperlipidemia. 7. Morbidly obese. PLAN: At this time, left heart catheterization was performed. No PCI indicated. At this time, I would recommend cardioprotective medications for now. Aspirin, Plavix, beta-willow, nitrate. He will be cleared to be discharged by Cardiology as well. Continue with insulin and home medications for now. I reviewed the case with Cardiology. Currently, the fact that the patient is doing well. Carotid ultrasound is still pending. A 2D echo was reviewed showed to be within normal range. We will continue same plan of care and once he has been cleared by Cardiology, we will discharge to home. MD MYESHA Mtz/RUDY /[id number]
--- NOTE | 2019-04-18 19:41 | Discharge Summary ---
FINAL DISCHARGE DIAGNOSES: 1. Fmf-GJ-liygkpnky myocardial infarction, status post left heart catheterization with no PCI needed. 2. Uncontrolled type 2 diabetes. 3. Hypertension. 4. Morbidly obese. 5. Hyperlipidemia. GLASS FURNACE TENDER: Cardiology. PHYSICAL EXAMINATION: VITAL SIGNS: Temperature 96, pulse 66, respiratory rate 22. Blood pressure is 150/66, pulse ox 96% on room air. LABORATORY FINDINGS: Show white count 9.7, hemoglobin 12, hematocrit is 37, platelets of 176. Chemistry, sodium was 139, potassium was 4.7. Chloride is 104, bicarbonate is 25, anion gap of 14. BUN is 20, creatinine is 1, last glucose was 239, calcium is 8.9, total bilirubin is 0.3. AST is 36, ALT is 15. Troponins were elevated. Albumin was 3.1. His LDL was 85. TSH is 0.762. MICROBIOLOGY: None. IMAGING STUDIES: Chest x-ray shows some mild bilateral interstitial edema. A 2D echo was within normal range. HOSPITAL COURSE: This is a 73-year-old gentleman, morbidly obese, type 2 diabetes, hypertension, history of CAD with CABG in the past, comes into the ED with complaints of substernal chest pain. The patient had elevated troponin, was admitted for further evaluation and management. The patient underwent left heart catheterization on 04/18/2019 with no PCI needed. No intervention was performed. I spoke with Cardiology by phone as well and we discussed the case. Also, the case was discussed with the patient's daughter at bedside by the manager physical. The patient will continue with same cardioprotective medications with aspirin, Plavix, beta-blockade, DANNY inhibitor, and statin. He does have piowjfvk-yx-kmflpe aortic stenosis, which Cardiology is suggested to follow up with his primary manager physical and further management and care and evaluation. At this time, no further workup will be needed by Cardiology standpoint. He will continue with same medications with no changes. On discharge, he had no more complaints of chest pain. He was doing well with no other issues. On the day of discharge, vital signs stable, labs reviewed and stable. The patient was seen, evaluated, and examined thoroughly on the day of discharge. No other complaints. The patient verbalized understanding and agreed to plan of care for followup as an outpatient with the primary care physician in 1 week and manager physical in 2 weeks' time. MEDICATIONS: See med reconciliation form. DISPOSITION: To home. CONDITION: Stable. DIET: Heart healthy. In the event of any worsening symptoms, the patient was advised to come back to the ED for further evaluation. Discharge summary took greater than 35 minutes. MD MYESHA Mtz/MODDora /[id number]
[2019-04-18] MEDS ORDERED: NON-FORMULARY MEDICATION (Rosuvastatin Calcium (Crestor) 40 MG) PO SCH (21:00)
[2019-04-18] MEDS ORDERED: CRESTOR 10MG PO SCH (21:00)
[2019-04-19] MEDS ORDERED: ASPIRIN 81 MG CHEW TAB PO SCH (09:00)
[2019-04-19] MEDS ORDERED: CLOPIDOGREL BISULFATE 75 MG TAB PO SCH ×3 (09:00)
[2019-04-19] MEDS ORDERED: METOPROLOL SUCCINATE 50 MG TAB XL PO SCH (09:00)
== END 2019-04-18 17:22 | disposition home or self-care (01) ==
LOC: ER 17:57 → ERHOLD 21:57 → MED/SURG2 22:35
PROVIDERS: ADMIT Internal Medicine; ATTEND Internal Medicine
DX: I21.4 Non-ST elevation (NSTEMI) myocardial infarction (principal); I10 Essential (primary) hypertension; F32.9 Major depressive disorder, single episode, unspecified; I25.10 Atherosclerotic heart disease of native coronary artery without angina pectoris; Z95.1 Presence of aortocoronary bypass graft; E11.65 Type 2 diabetes mellitus with hyperglycemia; Z68.36 Body mass index [BMI] 36.0-36.9, adult; E66.01 Morbid (severe) obesity due to excess calories; E11.42 Type 2 diabetes mellitus with diabetic polyneuropathy; Z79.4 Long term (current) use of insulin
CPT/HCPCS: 36415 ×2; 71045; 72110; 80048; 80053 ×2; 80061; 81001; 82550 ×2; 82553 ×2; 82948 ×2; 84443; 84484 ×2; 85025 ×2; 85379; 93005; 93306; 93459; 93880; 96372; 96374; 99285; C1760; C1766; C1769; G0378 ×2; J1100; J1644; J1650; J1817; J1885; J2001; J2060; J2250; J2270; J2360; J3010; J7030 ×2; Q9967; 99283

== ENCOUNTER 2020-04-02 13:23 | Observation (INO) | payer MEDICARE, OTHER ==
[~2020-04-02] VITALS: Ht 167.6 cm; Wt 101.2 kg
[~2020-04-02 13:23] MED LIST changes: +AMLODIPINE BES2.5 MG PO; +CRESTOR40 MG PO; +GABAPENTIN600 MG PO; +LISINOPRIL2.5 MG PO; +NOVOLIN N100 UNIT/1 SQ; +SERTRALINE HCL25 MG PO
[2020-04-02] MEDS ORDERED: SODIUM CHLORIDE 0.9% 1000ML 1,000 ML IV STA (14:31)
[2020-04-02] MEDS ORDERED: AZITHROMYCIN 500MG/NS 250 ML 250 ML IV SCH (14:45)
[2020-04-02] MEDS ORDERED: CEFTRIAXONE SOD 1 GM/NS 50 ML 50 ML IV SCH (14:45)
[2020-04-02 14:51] LABS: BASOPHILS % 0.1 % (0.0-1.0); EOSINOPHILS % 0.1 % (0.0-6.0); HEMATOCRIT 33.9 % (38.2-49.6); HEMOGLOBIN 11.1 g/dL (14.0-18.0); LYMPHOCYTES # (AUTO) 0.9 (1.0-3.2); LYMPHOCYTES % 12.2 % (18.0-39.1); MEAN CORPUSCULAR HEMOGLOBIN 28.9 pg (28-32); MEAN CORPUSCULAR HGB CONC 32.7 g/dL (31-35); MEAN CORPUSCULAR VOLUME 88.3 fL (81-99); MONOCYTES # (AUTO) 0.2 (0.2-0.8); MONOCYTES % 2.3 % (4.4-11.3); NEUTROPHILS % 84.6 % (38.7-80.0); PLATELET COUNT 216 x10e3/uL (140-360); RED BLOOD COUNT 3.84 x10e6/uL (4.3-5.7); RED CELL DISTRIBUTION WIDTH 13.3 % (11.7-14.4)
[2020-04-02 14:56] LABS: INR 0.95; PROTHROMBIN TIME 13.2 seconds (11.9-14.5)
[2020-04-02 14:57] LABS: PARTIAL THROMBOPLASTIN TIME 29.9 seconds (23.8-35.5)
[2020-04-02 15:07] LABS: ALANINE AMINOTRANSFERASE 20 IU/L (0-55); ALBUMIN 2.5 g/dL (3.5-5.0); ALBUMIN/GLOBULIN RATIO 0.6 (0.8-2.0); ALKALINE PHOSPHATASE 60 IU/L (40-150); ANION GAP 13.1 mmol/L (8-16); BLOOD UREA NITROGEN 12 mg/dL (7-26); BUN/CREATININE RATIO 13 (6-25); CALCIUM 8.4 mg/dL (8.4-10.2); CARBON DIOXIDE 24 mmol/L (22-29); CHLORIDE 103 mmol/L (98-107); CREATINE KINASE 129 IU/L (30-200); CREATININE, SERUM 0.93 mg/dL (0.72-1.25); EST GLOMERULAR FILTRATION RATE > 60 ML/MIN (60-); GLUCOSE 131 mg/dL (74-118); POTASSIUM 3.1 mmol/L (3.5-5.1); SODIUM 137 mmol/L (136-145)
[2020-04-02 15:31] LABS: B-TYPE NATRIURETIC PEPTIDE2 58.4 pg/mL (0-100)
[2020-04-02 15:43] LABS: NEUTROPHILS % (MANUAL) 83 % (40-74)
[2020-04-02 15:44] LABS: LYMPHOCYTES % (MANUAL) 13 % (19-48); MONOCYTES % (MANUAL) 4 % (3.4-9.0); PLATELET ESTIMATE ADEQUATE; PLATELET MORPHOLOGY COMMENT NORMAL; RBC MORPHOLOGY COMMENT NORMAL
[2020-04-02] MEDS: CEFTRIAXONE SOD 1 GM/NS 50 ML 50 ML IV SCH (16:00)
[2020-04-02] MEDS: AZITHROMYCIN 500MG/NS 250 ML 250 ML IV SCH (16:20)
--- NOTE | 2020-04-02 16:36 | Diagnostic Imaging Report ---
EXAMINATION: CHEST SINGLE (PORTABLE) INDICATION: SOB, COUGH COMPARISON: Chest x-ray dated 04/17/2019 FINDINGS: AP view TUBES and LINES: None. LUNGS/PLEURA: Lungs are well inflated. There are increased bilateral patchy opacities could represent multifocal pneumonia. There is no pleural effusion or pneumothorax. HEART AND MEDIASTINUM: The cardiomediastinal silhouette is unremarkable. BONES AND SOFT TISSUES: Intact median sternotomy wires. No acute osseous lesion. Soft tissues are unremarkable. UPPER ABDOMEN: No free air under the diaphragm. IMPRESSION: Increased bilateral patchy opacities could represent multifocal pneumonia. Signed by: Ernesto Jimenez MD on 04/02/2020 4:33 PM
[2020-04-02] MEDS ORDERED: CEFTRIAXONE SOD 1 GM VIAL ONE (16:56)
--- NOTE | 2020-04-02 18:44 | Emergency Department Note ---
History of Present Illnes History of Present Illness Chief Complaint: COVID PUI History of Present Illness This is a 74 year old male cough/sob/achy/F/C. dx with covid yesterday. pt states he was told by [facility] to come to an actual er to get oxygen. pt aaox4. pt slightly tachypneic. sats 91% room air. pt denies any pre vious pulmonary hx. Historian: Patient, Family Member Arrival Mode: Car Human Resources Hr Representative Required: No Radiation: Reports non-radiation Severity: moderate Onset quality: gradual Timing of current episode: constant Progression: worsening Chronicity: new Context: Denies recent illness Relieving factors: none Exacerbating factors: none Associated symptoms: Reports cough, Reports fever/chills, Reports shortness of breath, Reports weakness Treatments prior to arrival: none Past Medical/Family History Physician Review I have reviewed the patient's past medical and family history. Any updates have been documented here. Past Medical History Recent Fever: Yes Clinical Suspicion of Infectio: Yes New/Unexplained Change in Ment: No Past Medical History: Hypertension, Diabetes, Hyperlipedemia, Chronic Kidney Disease Other Medical History: HYPERLIPIDEMIA NEUROPATHY cerebral palsy Past Surgical History: Appendectomy, CABG, PCI Other Surgery: PILONOIDAL CYST CARDIAC STENTS Social History Smoking Cessation: Former smoker Counseling Performed: No Alcohol Use: None Any Illegal Drug Use: No TB Exposure/Symptoms: No Physically hurt or threatened: No Family History Family history of heart diseas: No Other Last Tetanus: UTD Any Pre-Existing Lines (PICC,: No Review of Systems Review of Systems Constitutional: Reports as per HPI EENTM: Reports no symptoms Cardiovascular: Reports no symptoms Respiratory: Reports as per HPI Gastrointestinal: Reports no symptoms Genitourinary: Reports no symptoms Musculoskeletal: Reports no symptoms Integumentary: Reports no symptoms Neurological: Reports no symptoms Psychological: Reports no symptoms Endocrine: Reports no symptoms Hematological/Lymphatic: Reports no symptoms Physical Exam Related Data Allergies: Coded Allergies: No Known Allergies (Unverified , 04/17/19) Triage Vital Signs Vital Signs Date Time Temp Pulse Resp B/P (MAP) Pulse Ox O2 Delivery O2 Flow Rate FiO2 04/02/20 13:30 98.9 79 22 113/57 91 Room Air Vital signs reviewed: Yes (O2 SAT 91% ON RA) Physical Exam CONSTITUTIONAL Constitutional: Present well-developed, Present well-nourished HENT HENT: Present normocephalic, Present atraumatic, Present oropharynx clear/moist, Present nose normal HENT L/R: Present left ext ear normal, Present right ext ear normal EYES Eyes: Reports PERRL, Reports conjunctivae normal NECK Neck: Present ROM normal PULMONARY Pulmonary: Present other (DECR BS'S BILAT BASES) CARDIOVASCULAR Cardiovascular: Present regular rhythm, Present heart sounds normal, Present capillary refill normal, Present normal rate GASTROINTESTINAL Abdominal: Present soft, Present nontender, Present bowel sounds normal GENITOURINARY Genitourinary: Present exam deferred SKIN Skin: Present warm, Present dry MUSCULOSKELETAL Musculoskeletal: Present ROM normal NEUROLOGICAL Neurological: Present alert, Present oriented x 3, Present no gross motor or sensory deficits PSYCHOLOGICAL Psychological: Present mood/affect normal, Present judgement normal Results Laboratory Result Diagram: 04/02/20 1420 04/02/20 1420 Laboratory Laboratory Tests Test 04/02/20 14:25 04/02/20 14:20 White Blood Count 7.11 x10e3/uL (4.8-10.8) Red Blood Count 3.84 x10e6/uL (4.3-5.7) Hemoglobin 11.1 g/dL (14.0-18.0) Hematocrit 33.9 % (38.2-49.6) Mean Corpuscular Volume 88.3 fL (81-99) Mean Corpuscular Hemoglobin 28.9 pg (28-32) Mean Corpuscular Hemoglobin Concent 32.7 g/dL (31-35) Red Cell Distribution Width 13.3 % (11.7-14.4) Platelet Count 216 x10e3/uL (140-360) Neutrophils (%) (Auto) 84.6 % (38.7-80.0) Lymphocytes (%) (Auto) 12.2 % (18.0-39.1) Monocytes (%) (Auto) 2.3 % (4.4-11.3) Eosinophils (%) (Auto) 0.1 % (0.0-6.0) Basophils (%) (Auto) 0.1 % (0.0-1.0) Neutrophils # (Auto) 6.0 (2.1-6.9) Lymphocytes # (Auto) 0.9 (1.0-3.2) Monocytes # (Auto) 0.2 (0.2-0.8) Eosinophils # (Auto) 0.0 (0.0-0.4) Basophils # (Auto) 0.0 (0.0-0.1) Absolute Immature Granulocyte (auto 0.05 x10e3/uL (0-0.1) Differential Total Cells Counted 100 Neutrophils % (Manual) 83 % (40-74) Lymphocytes % (Manual) 13 % (19-48) Monocytes % (Manual) 4 % (3.4-9.0) Platelet Estimate Adequate Platelet Morphology Comment Normal Red Cell Morphology Comment Normal Prothrombin Time 13.2 seconds (11.9-14.5) Prothromb Time International Ratio 0.95 Activated Partial Thromboplast Time 29.9 seconds (23.8-35.5) Sodium Level 137 mmol/L (136-145) Potassium Level 3.1 mmol/L (3.5-5.1) Chloride Level 103 mmol/L (98-107) Carbon Dioxide Level 24 mmol/L (22-29) Anion Gap 13.1 mmol/L (8-16) Blood Urea Nitrogen 12 mg/dL (7-26) Creatinine 0.93 mg/dL (0.72-1.25) Estimat Glomerular Filtration Rate > 60 ML/MIN (60-) BUN/Creatinine Ratio 13 (6-25) Glucose Level 131 mg/dL (74-118) Lactic Acid Level 1.5 mmol/L (0.5-2.0) Calcium Level 8.4 mg/dL (8.4-10.2) Total Bilirubin 0.5 mg/dL (0.2-1.2) Aspartate Amino Transf (AST/SGOT) 33 IU/L (5-34) Alanine Aminotransferase (ALT/SGPT) 20 IU/L (0-55) Alkaline Phosphatase 60 IU/L (40-150) Creatine Kinase 129 IU/L (30-200) Creatine Kinase MB 1.00 ng/mL (0-5.0) Troponin I 0.024 ng/mL (0-0.300) B-Type Natriuretic Peptide 58.4 pg/mL (0-100) Total Protein 6.8 g/dL (6.5-8.1) Albumin 2.5 g/dL (3.5-5.0) Globulin 4.3 g/dL (2.3-3.5) Albumin/Globulin Ratio 0.6 (0.8-2.0) Lab results reviewed: Yes Imaging Imaging results reviewed: Yes Impressions EXAMINATION: CHEST SINGLE (PORTABLE) INDICATION: SOB, COUGH COMPARISON: Chest x-ray dated 04/17/2019 FINDINGS: AP view TUBES and LINES: None. LUNGS/PLEURA: Lungs are well inflated. There are increased bilateral patchy opacities could represent multifocal pneumonia. There is no pleural effusion or pneumothorax. HEART AND MEDIASTINUM: The cardiomediastinal silhouette is unremarkable. BONES AND SOFT TISSUES: Intact median sternotomy wires. No acute osseous lesion. Soft tissues are unremarkable. UPPER ABDOMEN: No free air under the diaphragm. IMPRESSION: Increased bilateral patchy opacities could represent multifocal pneumonia. Signed by: Ernesto Jimenez MD on 04/02/2020 4:33 PM Procedures 12 Lead ECG Interpretation ECG Interpretation : ECG: ECG 1 Human Resources Hr Representative: Interpreted by ED physician Date: Apr 02, 2020 Time: 14:10 Rhythm: sinus rhythm Rate: normal (75) QRS axis: normal Conduction: incomplete RBBB ST segments normal: Yes T wave inversion: III Clinical Impression: abnormal ECG Assessment & Plan Medical Decision Making MDM CBC, CHEM, CARDIAC ENZYMES, BNP, PANCX'S, ECG, CXR, COVID SWAB - R/O PNEUMONIA, COVID19, STEMI/NSTEMI, CHF, ELECTROLYTE ABNL Reassessment Reassessment ADMIT TO ERWIN, CONSULT TO Dora PRIDE Assessment & Plan Final Impression: (1) Pneumonia due to COVID-19 virus (2) Hypoxia Depart Disposition: ADMITTED Last Vital Signs Date Time Temp Pulse Resp B/P (MAP) Pulse Ox O2 Delivery O2 Flow Rate FiO2 04/02/20 17:55 60 17 117/51 100 04/02/20 16:22 98.5 04/02/20 13:30 Room Air Home Meds Reported Medications Lisinopril (LISINOPRIL) 2.5 Mg Tablet, 2.5 MG PO DAILY, #30 TAB 04/18/19 Nph, Human Insulin Isophane (NOVOLIN N) 100 Unit/1 Ml Vial, 52 UNITS SQ HS 04/17/19 Amlodipine Besylate (AMLODIPINE BESYLATE) 2.5 Mg Tablet, 2.5 MG PO DAILY 04/17/19 Rosuvastatin Calcium (CRESTOR) 40 Mg Tablet, 40 MG PO HS 04/17/19 Sertraline Hcl (SERTRALINE HCL) 25 Mg Tablet, 25 MG PO DAILY 04/17/19 Gabapentin (GABAPENTIN) 600 Mg Tablet, 600 MG PO BID 04/17/19 Metoprolol Succinate (METOPROLOL SUCCINATE) 50 Mg Tab.er.24h, 50 MG PO BID, MG 09/12/16 Insulin Human Isophan/Regular (NOVOLIN 70-30 100 UNIT/ML VIAL) 100 Units/Ml Ml, 68 UNITS SQ DAILY 09/12/16 Furosemide (FUROSEMIDE) 40 Mg Tablet, 40 MG PO Daily, #30 TAB 09/12/16 Isosorbide Mononitrate (ISOSORBIDE MONONITRATE ER) 120 Mg Tab.er.24h, 120 MG PO DAILY 09/12/16 Aspirin (ASPIR 81) 81 Mg Tablet.dr, 81 MG PO DAILY 11/13/15 Glimepiride (GLIMEPIRIDE) 2 Mg Tablet, 4 MG PO DAILY, TAB 11/13/15 Nitroglycerin (NITROGLYCERIN) 0.4 Mg Tab.subl, 0.4 MG SL PRN CHEST PAIN 02/20/13 Clopidogrel Bisulfate* (PLAVIX) 75 Mg Tablet, 75 MG PO DAILY 02/20/13 Medications in the ED Sodium Chloride 1,000 ml @ 0 mls/hr Q0M STAT IV Last administered on 04/02/20at 16:00; Admin Dose 1,000 MLS/HR; Start 04/02/20 at 14:31; Stop 04/02/20 at 14:37; Status DC Ceftriaxone Sodium 50 ml @ 100 mls/hr Q24H IV ; Start 04/02/20 at 14:45; Stop 04/02/20 at 15:07; Status DC Azithromycin 250 ml @ 200 mls/hr DAILY IV ; Start 04/02/20 at 14:45; Stop 04/02/20 at 15:08; Status DC Ceftriaxone Sodium 50 ml @ 100 mls/hr Q24H IV Last administered on 04/02/20at 16:00; Admin Dose 100 MLS/HR; Start 04/02/20 at 15:15; Stop 04/09/20 at 15:14 Azithromycin 250 ml @ 200 mls/hr Q24H IV Last administered on 04/02/20at 16:20; Admin Dose 200 MLS/HR; Start 04/02/20 at 16:00; Stop 04/09/20 at 15:59 Ceftriaxone Sodium 1 gm STK-MED ONCE .ROUTE ; Start 04/02/20 at 16:56; Stop 04/02/20 at 16:50; Status DC MEREDITH JOYNER MD Apr 02, 2020 18:44
[2020-04-02] MEDS ORDERED: POTASSIUM CHLORIDE 20 MEQ TAB CR PO NR (19:05)
--- NOTE | 2020-04-02 19:12 | NUR ---
WALKING ROUNDS WITH LENORE RN-ASSUMED CARE
[2020-04-02] MEDS ORDERED: SODIUM CHLORIDE 0.9% 1000ML 1,000 ML IV SCH (19:30)
[2020-04-02] MEDS ORDERED: ALBUTEROL SULFATE HFA 8GM INHALATION AEROSOL INH PRN (19:30)
--- NOTE | 2020-04-02 23:40 | NUR ---
SNACK PROVIDED TO PATIENT
[2020-04-03] VITALS (10 sets, daily range): BP systolic 116–148; BP diastolic 54–75
[2020-04-03 02:02] LABS: CLARITY,URINE CLEAR (CLEAR); COLOR,URINE YELLOW (YELLOW)
[2020-04-03 02:03] LABS: BILIRUBIN,URINE NEGATIVE (NEGATIVE); KETONES,URINE NEGATIVE (NEGATIVE); LEUKOCYTE ESTERASE ,URINE NEGATIVE (NEGATIVE); NITRITE,URINE NEGATIVE (NEGATIVE); PROTEIN,URINE DIPSTICK 2+ (NEGATIVE); URINE UROBILINOGEN 1 mg/dL (0.2 - 1)
[2020-04-03 02:04] LABS: BACTERIA,URINE MANY /HPF; EPITHELIAL CELLS,URINE MANY /LPF; WBC,URINE (MAN) >50 /HPF (0-5)
[2020-04-03] MEDS ORDERED: SODIUM CHLORIDE 0.9% 1000ML 1,000 ML ONE (04:51)
[2020-04-03 06:05] LABS: BASOPHILS % 0.1 % (0.0-1.0); EOSINOPHILS % 0.3 % (0.0-6.0); HEMATOCRIT 31.8 % (38.2-49.6); HEMOGLOBIN 10.3 g/dL (14.0-18.0); LYMPHOCYTES # (AUTO) 1.1 (1.0-3.2); MEAN CORPUSCULAR HEMOGLOBIN 29.9 pg (28-32); MEAN CORPUSCULAR HGB CONC 32.4 g/dL (31-35); MEAN CORPUSCULAR VOLUME 92.2 fL (81-99); MONOCYTES # (AUTO) 0.2 (0.2-0.8); MONOCYTES % 3.1 % (4.4-11.3); NEUTROPHILS # (AUTO) 5.4 (2.1-6.9); NEUTROPHILS % 79.8 % (38.7-80.0); PLATELET COUNT 209 x10e3/uL (140-360); RED BLOOD COUNT 3.45 x10e6/uL (4.3-5.7); RED CELL DISTRIBUTION WIDTH 13.2 % (11.7-14.4)
[2020-04-03 06:30] LABS: CREATINE KINASE MB 1.4 ng/mL (0-5.0)
[2020-04-03 06:54] LABS: ALANINE AMINOTRANSFERASE 21 IU/L (0-55); ALBUMIN 2.2 g/dL (3.5-5.0); ALBUMIN/GLOBULIN RATIO 0.6 (0.8-2.0); ALKALINE PHOSPHATASE 62 IU/L (40-150); ANION GAP 11.3 mmol/L (8-16); BLOOD UREA NITROGEN 10 mg/dL (7-26); BUN/CREATININE RATIO 13 (6-25); CALCIUM 8.1 mg/dL (8.4-10.2); CARBON DIOXIDE 23 mmol/L (22-29); CHLORIDE 109 mmol/L (98-107); CREATININE, SERUM 0.76 mg/dL (0.72-1.25); EST GLOMERULAR FILTRATION RATE > 60 ML/MIN (60-); GLUCOSE 87 mg/dL (74-118); POTASSIUM 3.3 mmol/L (3.5-5.1); SODIUM 140 mmol/L (136-145)
--- NOTE | 2020-04-03 07:23 | NUR ---
PATIENT SITTING AT BED SIDE WATCHING TV, NO DISTRESS NOTED. O2 IN PLACE VIA N/C. BED IN LOWER POSITION, CALL LIGHT AT REACH.
[2020-04-03 09:31] LABS: LYMPHOCYTES % (MANUAL) 14 % (19-48); MONOCYTES % (MANUAL) 2 % (3.4-9.0); NEUTROPHILS % (MANUAL) 84 % (40-74)
--- NOTE | 2020-04-03 12:10 | NUR ---
PATIENT OUT OF BED TO CHAIR TALKING ON THE PHONE, NO DISTRESS NOTED. CALL LIGHT AT REACH.
[2020-04-03] MEDS: CEFTRIAXONE SOD 1 GM/NS 50 ML 50 ML IV SCH (15:15)
[2020-04-03 15:50] LABS: CREATINE KINASE MB 1.7 ng/mL (0-5.0)
--- NOTE | 2020-04-03 16:01 | NUR ---
PATIENT ASSISTED WITH DIAPER, BACK IN BED WITH CALL LIGHT AT REACH.
[2020-04-03] MEDS: AZITHROMYCIN 500MG/NS 250 ML 250 ML IV SCH (16:07)
[2020-04-03] MEDS ORDERED: ACETAMINOPHEN 325 MG TAB PO PRN (17:15)
[2020-04-03] MEDS ORDERED: DEXTROSE 50% SYRINGE 50 ML IV PRN (17:15)
[2020-04-03] MEDS: ENOXAPARIN SOD INJ 40 MG/0.4 ML SYR SC SCH (20:25)
[2020-04-03] MEDS: INSULIN REGULAR, HUMAN 100 UNIT/1 ML 3ML VIAL SQ SCH (20:25)
--- NOTE | 2020-04-03 20:31 | Consultation ---
DATE OF CONSULTATION: Pulmonary Critical Care Consultation CHIEF COMPLAINT: Cough and dyspnea. HISTORY OF PRESENT ILLNESS: The patient is a 74-year-old man. He has a history of diabetes and hypertension. He was recently hospitalized last year for some chest discomfort. He had a cardiac catheterization, but did not require stent. He now complains of dyspnea and cough. He has some fevers as well. PAST SURGICAL HISTORY: Status post coronary artery bypass grafting. PAST MEDICAL HISTORY: 1. Diabetes. 2. Hypertension. 3. Peripheral neuropathy. SOCIAL HISTORY: The patient is not a smoker. He is not a drinker. FAMILY HISTORY: Family history is significant for hypertension and diabetes. REVIEW OF SYSTEMS: The patient is afebrile. He has no headache. He has no neck pain. He has no chest pain. He has some cough and some dyspnea. He has no abdominal pain. He has no nausea or vomiting. He has no leg edema. He does have some diarrhea. PHYSICAL EXAMINATION: VITAL SIGNS: The patient is afebrile. The blood pressure is 135/56, saturation is 96% on 2 L, and respiratory rate is in low 20s. HEENT: Shows no facial swelling or erythema. CARDIAC: Reveals regular rate and rhythm. Normal S1 and S2. LUNGS: Auscultation of lungs reveals rhonchorous breath sounds bilaterally. There is no wheezing. ABDOMEN: Soft and nontender. There is no rebound or guarding. EXTREMITIES: Shows no leg edema or calf tenderness. There is no cyanosis or clubbing. SKIN: Shows no rashes. NEUROLOGICAL: Shows no focal abnormalities. LABORATORY DATA: White blood cell count is 6.8, hemoglobin is 10.3, and the platelet count is 209. BUN to creatinine ratio is normal. The potassium is 3.3 and albumin is 2.2. Other electrolytes are within normal limits. RADIOGRAPHIC DATA: Chest x-ray shows patchy bilateral infiltrates. IMPRESSION: 1. Viral pneumonia and COVID-19 infection. 2. Gastroenteritis. 3. Diabetes. 4. Hypertension. PLAN: 1. Supplemental oxygen. 2. Judicious use of IV fluids. 3. Zithromax and Rocephin. 4. Dexamethasone. 5. Lovenox. Tato Ruano MD [facility]/MODL /[id number]
[2020-04-03] MEDS ORDERED: ZOLPIDEM TARTRATE 5 MG TAB PO PRN (21:00)
[2020-04-03] MEDS ORDERED: INSULIN GLARGINE 100 UNITS/ML VIAL SQ SCH (21:00)
[2020-04-03 21:50] LABS: MAGNESIUM 1.8 MG/DL (1.3-2.1); PHOSPHORUS 1.3 MG/DL (2.3-4.7)
[2020-04-03] MEDS ORDERED: POTASSIUM PHOSPHATE 20 MM in SODIUM CHLORIDE 0.9% 250ML 250 ML IV SCH (22:15)
[2020-04-03] MEDS ORDERED: NITROGLYCERIN 0.4 MG SUBL SL PRN (22:15)
[2020-04-03] MEDS: GABAPENTIN 300 MG CAP PO SCH (23:30)
[2020-04-04] MEDS ORDERED: PHOSPHORUS 250 MG TAB PO ONE (01:45)
[2020-04-04 04:34] VITALS: BP 139/59
[2020-04-04] MEDS ORDERED: GLIMEPIRIDE 2 MG TAB PO SCH (07:30)
[2020-04-04] MEDS: INSULIN REGULAR, HUMAN 100 UNIT/1 ML 3ML VIAL SQ SCH ×2 (07:30→11:30)
[2020-04-04 08:00] VITALS: BP 126/67
[2020-04-04 08:25] LABS: BASOPHILS % 0.2 % (0.0-1.0); EOSINOPHILS % 0.8 % (0.0-6.0); HEMATOCRIT 31.6 % (38.2-49.6); HEMOGLOBIN 10.4 g/dL (14.0-18.0); LYMPHOCYTES # (AUTO) 1.1 (1.0-3.2); LYMPHOCYTES % 22.7 % (18.0-39.1); MEAN CORPUSCULAR HEMOGLOBIN 28.9 pg (28-32); MEAN CORPUSCULAR HGB CONC 32.9 g/dL (31-35); MEAN CORPUSCULAR VOLUME 87.8 fL (81-99); MONOCYTES # (AUTO) 0.3 (0.2-0.8); MONOCYTES % 5.5 % (4.4-11.3); NEUTROPHILS # (AUTO) 3.4 (2.1-6.9); NEUTROPHILS % 70.2 % (38.7-80.0); PLATELET COUNT 244 x10e3/uL (140-360); RED CELL DISTRIBUTION WIDTH 13.1 % (11.7-14.4)
[2020-04-04] MEDS: GABAPENTIN 300 MG CAP PO SCH (08:37)
[2020-04-04] MEDS: ENOXAPARIN SOD INJ 40 MG/0.4 ML SYR SC SCH (08:38)
[2020-04-04 08:46] LABS: BLOOD UREA NITROGEN 7 mg/dL (7-26); BUN/CREATININE RATIO 11 (6-25); CALCIUM 8.1 mg/dL (8.4-10.2); CARBON DIOXIDE 25 mmol/L (22-29); CHLORIDE 108 mmol/L (98-107); CREATININE, SERUM 0.66 mg/dL (0.72-1.25); EST GLOMERULAR FILTRATION RATE > 60 ML/MIN (60-); GLUCOSE 81 mg/dL (74-118); PHOSPHORUS 2.7 MG/DL (2.3-4.7); SODIUM 142 mmol/L (136-145)
[2020-04-04] MEDS ORDERED: DEXAMETHASONE SOD PHOS 10 MG/1 ML VIAL IV SCH (09:00)
[2020-04-04] MEDS ORDERED: CLOPIDOGREL BISULFATE 75 MG TAB PO SCH (09:00)
[2020-04-04] MEDS ORDERED: ISOSORBIDE MONONITRATE 120 MG PO SCH (09:00)
[2020-04-04] MEDS ORDERED: ZINC SULFATE 220 MG CAP PO SCH (09:00)
[2020-04-04] MEDS ORDERED: LISINOPRIL 2.5 MG TAB PO SCH (09:00)
[2020-04-04] MEDS ORDERED: ASCORBIC ACID 500 MG TAB PO SCH (09:00)
[2020-04-04] MEDS ORDERED: ASPIRIN 81 MG CHEW TAB PO SCH (09:00)
[2020-04-04] MEDS ORDERED: AMLODIPINE BESYLATE 5 MG TAB PO SCH (09:00)
[2020-04-04] MEDS ORDERED: NON-FORMULARY MEDICATION (Gabapentin 600 MG) PO SCH (09:00)
[2020-04-04] MEDS ORDERED: SERTRALINE HCL 50 MG TAB PO SCH (09:00)
[2020-04-04] MEDS ORDERED: METOPROLOL SUCCINATE 50 MG TAB XL PO SCH (09:00)
[2020-04-04] MEDS ORDERED: CHOLESTYRAMINE 4 GM PACKET PO SCH (09:00)
[2020-04-04] MEDS ORDERED: FUROSEMIDE 40 MG TAB PO SCH (09:00)
[2020-04-04] MEDS ORDERED: ISOSORBIDE MONONITRATE 30 MG TAB CR PO SCH (09:00)
[2020-04-04] MEDS ORDERED: NON-FORMULARY MEDICATION (Sertraline Hcl 25 MG) PO SCH (09:00)
[2020-04-04] MEDS ORDERED: NON-FORMULARY MEDICATION (Amlodipine Besylate 2.5 MG) PO SCH (09:00)
[2020-04-04] MEDS ORDERED: CHOLECALCIFEROL 400 UNIT TAB PO SCH (09:00)
[2020-04-04 10:28] LABS: EOSINOPHILS % (MANUAL) 1 % (0-7); LYMPHOCYTES % (MANUAL) 21 % (19-48); MONOCYTES % (MANUAL) 7 % (3.4-9.0); NEUTROPHILS % (MANUAL) 71 % (40-74)
[2020-04-04 10:29] LABS: PLATELET ESTIMATE ADEQUATE; PLATELET MORPHOLOGY COMMENT NORMAL; RBC MORPHOLOGY COMMENT NORMAL
[2020-04-04] MEDS ORDERED: DEXAMETHASONE SOD PHOS INJ 4 MG/ML VIAL IV SCH (10:30)
--- NOTE | 2020-04-04 11:27 | NUR ---
Home O2 eval was done. Pt dropped to 87% on exertion. Received order to arrange home oxygen. CM called and spoke to pt who is agreeable to use any company that takes his insurance. Choice given for [facility]. Signed choice letter placed in front of chart. Referral faxed to [employer] at [phone] / . Skyler Witt was notified of referral.
--- NOTE | 2020-04-04 11:51 | NUR ---
Portable oxygen delivered. Gave to MAIA Hudson to give to pt. Pt instructed to call company on his way home for delivery of concentrator.
[2020-04-04 12:00] VITALS: BP 113/50
[2020-04-04] MEDS ORDERED: CHOLESTYRAMINE L4 GM PO (12:43)
[2020-04-04] MEDS ORDERED: ASCORBIC ACID500 MG PO (12:43)
[2020-04-04] MEDS ORDERED: ACETAMINOPHEN325 M1 PO (12:43)
[2020-04-04] MEDS ORDERED: VENTOLIN HFA18 GM INH (12:43)
[2020-04-04] MEDS ORDERED: ELIQUIS2.5 MG PO (12:43)
[2020-04-04] MEDS ORDERED: ZINC SULFATE220 M1 PO (12:43)
[2020-04-04] MEDS ORDERED: Cholecalciferol PO (12:43)
[2020-04-04] MEDS ORDERED: DECADRON6 MG PO (12:43)
[2020-04-04] MEDS ORDERED: POTASSIUM CHLORIDE 20 MEQ TAB CR PO SCH (13:15)
--- NOTE | 2020-04-04 14:13 | Consultation ---
DATE OF CONSULTATION: HISTORY OF PRESENT ILLNESS: This patient is COVID-19. This is a very pleasant 74-year-old gentleman, who has history of diabetes, hypertension, recently hospitalized for chest discomfort, had cardiac catheterization, but did not require any stenting. The patient comes in with shortness of breath and cough. When I saw the patient, he was lying in bed comfortably. No complaints when he came in yesterday. He does have diabetes mellitus, hypertension, and peripheral neuropathy. PAST SURGICAL HISTORY: Denies. ALLERGIES: NKA. SOCIAL HISTORY: There is no smoking, drug abuse, or alcohol abuse. FAMILY HISTORY: Otherwise unremarkable. REVIEW OF SYSTEMS: The patient is complaining of shortness of breath. He is telling me he has been short of breath for more than 2 weeks. The patient is currently lying in bed dropped his oxygen. PHYSICAL EXAMINATION: GENERAL: Currently alert and oriented. VITALS: Stable, currently afebrile. HEENT: Not icteric. NECK: Supple. CHEST: Crackles bilateral. HEART: S1 and S2. ABDOMEN: Soft. IMPRESSION: Hypoxemia, mild COVID-19. RECOMMENDATIONS: agree with Rocephin 1 g daily, azithromycin 500 mg daily for 3 days, Lovenox 0.5 mg q.24 hours. The patient has been sick for more than 2 weeks . Clinically, seems to be doing well. He probably can go home oxygen with azithromycin for Z-Farrukh and the low dose of anticoagulation. Consider Eliquis 2.5 mg p.o. daily for twice a day or if he cannot afford it daily. Albuterol as needed. Observation is needed. O2. Followup here as an outpatient. The patient to be in home quarantine for 2 weeks. No need to repeat PCR testing. MD MARGAUX Moctezuma/RUDY /[id number]
[2020-04-04] MEDS: CEFTRIAXONE SOD 1 GM/NS 50 ML 50 ML IV SCH (14:54)
--- NOTE | 2020-04-04 15:22 | NUR ---
Pt discharged home at this time. Pt was discharged with oxygen and was able to correctly demonstrate proper use of oxygen. Pt was sent home with prescriptions and verbalized understanding of use of medications. Pt verbalized understanding of all discharge instructions and follow up appointments.
--- NOTE | 2020-04-04 19:35 | History and Physical ---
CONSULTING PHYSICIANS: 1. Dr. Tato Ruano with Pulmonology. 2. Dr. Avalos with Infectious Disease. PRIMARY CARE PHYSICIAN: Meenakshi Chaidez MD CHIEF COMPLAINT: Shortness of breath and cough. HISTORY OF PRESENT ILLNESS: The patient has a 74-year-old male with a history of diabetes and hypertension, that was recently hospitalized last year for some chest discomfort. He had a cardiac catheterization at that time, but did not require a stent. He presented to the emergency department with complaints of dyspnea and cough with fever. He had a Coronavirus test, that came back positive and was admitted. PAST MEDICAL HISTORY: Diabetes, hypertension, and peripheral neuropathy. PAST SURGICAL HISTORY: Appendectomy at age 16 and coronary artery bypass graft x3 vessels. FAMILY HISTORY: Father had heart problems and mother had diabetes. SOCIAL HISTORY: The patient lives in apartment with seniors. 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 He smoked a quarter pack per day for a year and quit. He drinks occasionally. Denies any illicit drug use. ALLERGIES: NO KNOWN ALLERGIES. REVIEW OF SYSTEMS: The patient complains of fever, feeling stuffy, mild dizziness, sore throat, difficulty swallowing, cough, brown phlegm, chest pain 6 on a scale of 0 to 10. He states he had one diarrhea stool on 04/02/2020, and three stools today. A 14-point review of systems completed and all other systems are negative except as noted above. PHYSICAL EXAMINATION: VITAL SIGNS: Temperature 98.4, heart rate 74, blood pressure 134/59, respirations 18, and oxygen saturation 96%. GENERAL: The patient out of bed, sitting up in a chair, in no acute distress. LUNGS: With bibasilar crackles. Oxygen at 2 L/minute via nasal cannula. HEENT: EOMI. NECK: Supple. No JVD. CARDIOVASCULAR: Regular rate and rhythm. No murmur. ABDOMEN: Bowel sounds positive. Soft, nontender. No guarding. EXTREMITIES: Without pitting edema. No clubbing, cyanosis, or marked swelling. NEUROLOGIC: GCS is 15. Nonfocal. LABORATORY DATA: On admission; WBC 7.1, hemoglobin 11.1, hematocrit 33.9, and platelets 216. Coagulation with PT, INR, and PTT within normal limits. Sodium 137, potassium 3.1, chloride 103, CO2 of 24, anion gap 13.1, BUN 12, creatinine 0.93, estimated GFR greater than 60, glucose 131. LFTs were within normal limits and three sets of cardiac enzymes were within normal limits. B-type natriuretic peptide 58.4. Lactic acid 1.5. Urinalysis with 2+ protein, 6 to 10 rbc's, greater than 50 wbc's, many bacteria, many epithelial cells. Preliminary urine culture, showed no growth after 18 to 24 hours. Blood cultures x2 show no growth after 24 hours. Coronavirus PCR was detected on 04/02/2020. Chest x-ray done on 04/02/2020, showed increased bilateral patchy opacities could represent multifocal pneumonia. ASSESSMENT AND PLAN: 1. Multifocal viral community-acquired pneumonia due to COVID-19, POA. The patient will be started on IV dexamethasone. Continue azithromycin and Rocephin, Lovenox, zinc, and vitamin C. We will go ahead and continue his Plavix, albuterol inhaler, p.r.n. Tylenol. 2. Gastroenteritis with diarrhea. The patient states he has had 3 diarrhea stools today. We will start him on Questran, see if that helps. 3. Controlled hypertension. Home lisinopril and isosorbide mononitrate, resumed creatinine 0.76. 4. Controlled type 2 diabetes mellitus. Hemoglobin A1c 7.5 on 11/14/2015. Fingerstick blood glucose level 85. Serum glucose on lab on 04/02 is 131. Serum glucose 87 today. No need to check hemoglobin A1c as his diabetes seems well controlled. 5. Acute hypokalemia. Potassium level is 3.3. Phosphorus is low as well, gave 20 millimoles of potassium phosphate IV. Magnesium level is 1.8. 6. Acute hypophosphatemia. Phosphorus level low at 1.3. We will give the potassium phosphate 20 mmol IV. Recheck in the morning. 7. Prophylaxis. Lovenox and Pepcid. TIME SPENT: 60 minutes for H and P. BILLING CODE: [id number]. Dictated by Lex Hoffman, RES HABILITATION ASSISTANT Ferny So MD [facility]/MODL /[id number]
[2020-04-04] MEDS ORDERED: CRESTOR 10MG PO SCH (21:00)
[2020-04-04] MEDS ORDERED: NON-FORMULARY MEDICATION (Rosuvastatin Calcium (Crestor) 40 MG) PO SCH (21:00)
--- NOTE | 2020-04-05 09:47 | Discharge Summary ---
CONSULTING PHYSICIANS: Dr. Tato Ruano and Dr. Ros Avalos with Pulmonology and Infectious Disease respectively. CHIEF COMPLAINT: Short of breath and cough. HISTORY OF PRESENT ILLNESS: The patient is a 74-year-old gentleman, who was recently hospitalized about a year ago for some chest discomfort and had a cardiac catheterization, but did not require stent at that time, then presented to the emergency department due to dyspnea and cough as well as fever. He was found to have COVID-19. Please see history and physical for past history. ADMITTING DIAGNOSES: 1. Multifocal viral community-acquired pneumonia due to COVID-19, POA. 2. Gastroenteritis with diarrhea. 3. Controlled hypertension. 4. Controlled type 2 diabetes mellitus. 5. Acute hypokalemia. 6. Acute hypophosphatemia. DISCHARGE DIAGNOSES: 1. Multifocal viral community-acquired pneumonia due to COVID-19, POA. 2. Gastroenteritis with diarrhea. 3. Controlled hypertension. 4. Controlled type 2 diabetes mellitus. 5. Acute hypokalemia. 6. Acute hypophosphatemia. The patient had received dexamethasone, IV azithromycin, Rocephin, albuterol HFA, vitamin D, vitamin C, zinc sulfate, Lovenox for the COVID-19, Questran was started for the diarrhea, which seems to have a positive result. He is still having some loose stools, however, his diarrhea is much less frequent. His home medications for high blood pressure were resumed and his blood pressure has been stable. He was on sliding scale insulin for diabetes. His potassium and phosphorus levels were low with his potassium being 3.1 on admission and 3.0 today. Lactic acid was 1.5. His phosphorus levels 1.3 on 04/03 and 2.7 today after receiving 20 millimoles of IV potassium phosphate. The patient will receive an additional 60 mEq of potassium chloride orally today prior to leaving as he still was having some loose stools and his potassium level is 3.0. WBCs today 6.82, hemoglobin 10.3, hematocrit 31.8, platelets 209,000, BUN 10, creatinine 0.76, estimated GFR greater than 60. Temperature 98.4, heart rate 66, blood pressure 139/59, respirations 24, oxygen saturation 97% on 2 L of oxygen via nasal cannula. He will be discharged on oxygen, go home with that as well as prescriptions for the following, p.r.n. Tylenol, Ventolin HFA, vitamin C, vitamin D, i.e., cholecalciferol, Questran Light, Decadron 6 mg p.o. q.12 hours x9 doses, Eliquis 2.5 mg p.o. b.i.d. for 30 days, and zinc sulfate. The patient understands he needs to quarantine for a minimum of three weeks preferably a month. Continue ADA diet. Activity level as tolerated. Follow up with PCP Dr. Chaidez in one month and Dr. Avalos in one month. No change in physical exam from history and physical. Dictated by Lex Hoffman NP Ferny So MD HWP/PRADEEPL /[id number]
== END 2020-04-04 15:22 | disposition home or self-care (01) ==
LOC: ER 13:32 → ERHOLD 23:20 → IMCU 04-03 01:25
PROVIDERS: ADMIT Internal Medicine; ATTEND Internal Medicine
DX: U07.1 COVID-19 (principal); J12.89 Other viral pneumonia; I10 Essential (primary) hypertension; E11.42 Type 2 diabetes mellitus with diabetic polyneuropathy; K52.9 Noninfective gastroenteritis and colitis, unspecified; R09.02 Hypoxemia; E87.6 Hypokalemia; E83.39 Other disorders of phosphorus metabolism; Z87.891 Personal history of nicotine dependence; Z95.1 Presence of aortocoronary bypass graft; Z83.3 Family history of diabetes mellitus; Z82.49 Family history of ischemic heart disease and other diseases of the circulatory system
CPT/HCPCS: 36415 ×3; 71045; 80048; 80053 ×2; 81001; 82550 ×2; 82553 ×2; 82948 ×3; 83605; 83735 ×2; 83880; 84100 ×2; 84484 ×2; 85025 ×3; 85610; 85730; 87040; 87086; 87635; 93005; 99284; G0378 ×3; J0456 ×2; J0696 ×3; J1100; J1650 ×2; J1815; J7030 ×2; U0002

== ENCOUNTER 2020-07-14 10:39 | Observation (INO) | payer MEDICARE, OTHER ==
[~2020-07-14] VITALS: Ht 167.6 cm; Wt 101.2 kg
[~2020-07-14 10:39] MED LIST changes: +ACETAMINOPHEN325 M1 PO; +ASCORBIC ACID500 MG PO; +CHOLESTYRAMINE L4 GM PO; +Cholecalciferol PO; +DECADRON6 MG PO; +ELIQUIS2.5 MG PO; +VENTOLIN HFA18 GM INH; +ZINC SULFATE220 M1 PO
[2020-07-14] MEDS ORDERED: ASPIRIN 81 MG CHEW TAB PO ONE (11:00)
[2020-07-14 11:11] LABS: BASOPHILS % 0.5 % (0.0-1.0); EOSINOPHILS # (AUTO) 0.2 (0.0-0.4); EOSINOPHILS % 2.7 % (0.0-6.0); HEMATOCRIT 41.7 % (38.2-49.6); HEMOGLOBIN 13.5 g/dL (14.0-18.0); LYMPHOCYTES % 27.1 % (18.0-39.1); MEAN CORPUSCULAR HGB CONC 32.4 g/dL (31-35); MEAN CORPUSCULAR VOLUME 89.5 fL (81-99); MONOCYTES # (AUTO) 0.5 (0.2-0.8); MONOCYTES % 6.4 % (4.4-11.3); NEUTROPHILS # (AUTO) 4.6 (2.1-6.9); PLATELET COUNT 150 x10e3/uL (140-360); RED BLOOD COUNT 4.66 x10e6/uL (4.3-5.7); RED CELL DISTRIBUTION WIDTH 13.7 % (11.7-14.4)
--- NOTE | 2020-07-14 11:15 | NUR ---
rec'd pt in rm 6 with c/o c/p. placed on the monitor and call donaldson at side. able to make all needs known. denies chest pain/s.o.b. will continue to monitor
[2020-07-14 11:31] LABS: ALANINE AMINOTRANSFERASE 22 IU/L (0-55); ALBUMIN/GLOBULIN RATIO 1.3 (0.8-2.0); ALKALINE PHOSPHATASE 81 IU/L (40-150); ANION GAP 13.4 mmol/L (8-16); BLOOD UREA NITROGEN 14 mg/dL (7-26); BUN/CREATININE RATIO 16 (6-25); CARBON DIOXIDE 26 mmol/L (22-29); CHLORIDE 106 mmol/L (98-107); CREATINE KINASE 102 IU/L (30-200); CREATININE, SERUM 0.88 mg/dL (0.72-1.25); EST GLOMERULAR FILTRATION RATE > 60 ML/MIN (60-); GLUCOSE 253 mg/dL (74-118); POTASSIUM 4.4 mmol/L (3.5-5.1); SODIUM 141 mmol/L (136-145)
--- NOTE | 2020-07-14 11:57 | Emergency Department Note ---
History of Present Illnes History of Present Illness Chief Complaint: Chest Pain History of Present Illness This is a 75 year old male arrives to the ED with complaints of chest pain that began several days ago but now worsening. Patient was seen as PCPs office with concerning EKG and sent to the ER. Patient states he has been taking nitroglycerin for the past few days with relief. Pt with extensive cardiac history. Chief Complaint Comment Patient in from home with complaints of mid sternal chest pain that radiates to his back that started about 4 days ago. Patient reports taking SL nitro numerous times over the last 4 days. Patient has a significant cardiac history of OK and 6 stents in heart. Patient states his pain is a 2/10 now but states it was worse prior to taking the nitro this morning about 0530. Historian: Patient Arrival Mode: Car Onset (how long ago): day(s) Radiation: Reports non-radiation Severity: moderate Onset quality: gradual Duration (how long): day(s) Progression: waxing and waning Chronicity: recurrent Associated symptoms: Reports denies other symptoms Past Medical/Family History Physician Review I have reviewed the patient's past medical and family history. Any updates have been documented here. Past Medical History Recent Fever: No Clinical Suspicion of Infectio: No New/Unexplained Change in Ment: No Past Medical History: Hypertension, Diabetes, Hyperlipedemia, Chronic Kidney Disease Other Medical History: HYPERLIPIDEMIA NEUROPATHY cerebral palsy Past Surgical History: Appendectomy, CABG, PCI Other Surgery: PILONOIDAL CYST CARDIAC STENTS Other Last Tetanus: UTD Review of Systems Review of Systems Constitutional: Reports no symptoms EENTM: Reports no symptoms Cardiovascular: Reports no symptoms, Reports chest pain Respiratory: Reports no symptoms Gastrointestinal: Reports no symptoms Genitourinary: Reports no symptoms Musculoskeletal: Reports no symptoms Integumentary: Reports no symptoms Neurological: Reports no symptoms Psychological: Reports no symptoms Endocrine: Reports no symptoms Hematological/Lymphatic: Reports no symptoms Physical Exam Related Data Allergies: Coded Allergies: No Known Allergies (Unverified , 04/17/19) Triage Vital Signs Vital Signs Date Time Temp Pulse Resp B/P (MAP) Pulse Ox O2 Delivery O2 Flow Rate FiO2 07/14/20 10:46 98.3 67 17 141/69 98 Room Air Vital signs reviewed: Yes Physical Exam CONSTITUTIONAL Constitutional: Present well-developed, Present well-nourished, Present obese HENT HENT: Present normocephalic, Present atraumatic, Present oropharynx clear/moist, Present nose normal HENT L/R: Present left ext ear normal, Present right ext ear normal EYES Eyes: Reports PERRL, Reports conjunctivae normal NECK Neck: Present ROM normal PULMONARY Pulmonary: Present effort normal, Present breath sounds normal CARDIOVASCULAR Cardiovascular: Present regular rhythm, Present heart sounds normal, Present capillary refill normal, Present normal rate GASTROINTESTINAL Abdominal: Present soft, Present nontender, Present bowel sounds normal GENITOURINARY Genitourinary: Present exam deferred SKIN Skin: Present warm, Present dry MUSCULOSKELETAL Musculoskeletal: Present ROM normal NEUROLOGICAL Neurological: Present alert, Present oriented x 3, Present no gross motor or sensory deficits PSYCHOLOGICAL Psychological: Present mood/affect normal, Present judgement normal Results Laboratory Result Diagram: 07/14/20 1100 07/14/20 1100 Laboratory Laboratory Tests Test 07/14/20 11:00 White Blood Count 7.30 x10e3/uL (4.8-10.8) Red Blood Count 4.66 x10e6/uL (4.3-5.7) Hemoglobin 13.5 g/dL (14.0-18.0) Hematocrit 41.7 % (38.2-49.6) Mean Corpuscular Volume 89.5 fL (81-99) Mean Corpuscular Hemoglobin 29.0 pg (28-32) Mean Corpuscular Hemoglobin Concent 32.4 g/dL (31-35) Red Cell Distribution Width 13.7 % (11.7-14.4) Platelet Count 150 x10e3/uL (140-360) Neutrophils (%) (Auto) 63.0 % (38.7-80.0) Lymphocytes (%) (Auto) 27.1 % (18.0-39.1) Monocytes (%) (Auto) 6.4 % (4.4-11.3) Eosinophils (%) (Auto) 2.7 % (0.0-6.0) Basophils (%) (Auto) 0.5 % (0.0-1.0) Neutrophils # (Auto) 4.6 (2.1-6.9) Lymphocytes # (Auto) 2.0 (1.0-3.2) Monocytes # (Auto) 0.5 (0.2-0.8) Eosinophils # (Auto) 0.2 (0.0-0.4) Basophils # (Auto) 0.0 (0.0-0.1) Absolute Immature Granulocyte (auto 0.02 x10e3/uL (0-0.1) Sodium Level 141 mmol/L (136-145) Potassium Level 4.4 mmol/L (3.5-5.1) Chloride Level 106 mmol/L (98-107) Carbon Dioxide Level 26 mmol/L (22-29) Anion Gap 13.4 mmol/L (8-16) Blood Urea Nitrogen 14 mg/dL (7-26) Creatinine 0.88 mg/dL (0.72-1.25) Estimat Glomerular Filtration Rate > 60 ML/MIN (60-) BUN/Creatinine Ratio 16 (6-25) Glucose Level 253 mg/dL (74-118) Calcium Level 9.0 mg/dL (8.4-10.2) Total Bilirubin 0.4 mg/dL (0.2-1.2) Aspartate Amino Transf (AST/SGOT) 22 IU/L (5-34) Alanine Aminotransferase (ALT/SGPT) 22 IU/L (0-55) Alkaline Phosphatase 81 IU/L (40-150) Creatine Kinase 102 IU/L (30-200) Creatine Kinase MB 1.90 ng/mL (0-5.0) Troponin I 0.081 ng/mL (0-0.300) Total Protein 7.1 g/dL (6.5-8.1) Albumin 4.0 g/dL (3.5-5.0) Globulin 3.1 g/dL (2.3-3.5) Albumin/Globulin Ratio 1.3 (0.8-2.0) Lab results reviewed: Yes Imaging Imaging results reviewed: Yes Procedures 12 Lead ECG Interpretation ECG Interpretation : ECG: ECG 1 Jail Keeper: Interpreted by ED physician Prior ECG tracings: reviewed Rhythm: sinus rhythm Rate: normal QRS axis: normal Conduction: incomplete RBBB T wave inversion: V4, V6 Clinical Impression: abnormal ECG Assessment & Plan Medical Decision Making MDM 75-year-old male arrives to the ED with extensive cardiac history. Patient r equired hospital admission for cardiac observation. Clinical Impression and Disposition Plan My clinical impression includes: Stable angina, acute coronary syndrome, unstable angina, chest pain No diagnosis found. And plan is admit for: -Further monitoring and evaluation is medically necessary -Failure to respond to outpatient treatment -Changes in pt's condition require medical attention -High risk for adverse event impacting life/organs/systems -Impossible to complete diagnostic studies as an outpatient -Signs/symptoms could lead to deterioration of patient -Treatment plan will require frequent clinical modifications -Treatment requires inpatient setting All clinical impressions and diagnoses provided are preliminary ED determinations subject to the inherent limitations of an emergent non-scheduled evaluation and possible lack of comprehensive previous records. All patient care including history taking, review of systems, physical exam, nursing notes review, medical decision making, clinical course management in the emergency department, clinical impression, disposition and plan formulation was performed on the date of service. This note was created using a voice-recognition transcribing system. Incorrect words or phrases may have been missed during proofreading. Please interpret accordingly. Assessment & Plan Final Impression: (1) Chest pain Depart Disposition: ADMITTED Last Vital Signs Date Time Temp Pulse Resp B/P (MAP) Pulse Ox O2 Delivery O2 Flow Rate FiO2 07/14/20 11:27 69 19 144/52 95 Room Air 07/14/20 11:14 98.5 Home Meds Active Scripts Zinc Sulfate (ZINC SULFATE) 220 Mg Capsule, 220 MG PO BID for 30 Days, #60 TAB 0 Refills Prov:NAI CRUZ NP 04/04/20 Apixaban (Eliquis) 2.5 Mg Tablet, 2.5 MG PO BID for 30 Days, #60 TAB 0 Refills Prov:NAI CRUZ NP 04/04/20 Dexamethasone (Decadron) 6 Mg Tablet, 6 MG PO Q12H for 9 Days, #9 TAB 0 Refills Prov:NAI CRUZ NP 04/04/20 Cholestyramine (CHOLESTYRAMINE LIGHT PACKET) 4 Gm Pack, 4 GM PO BID for 30 Days, #60 DOSE 0 Refills Prov:NAI CRUZ NP 04/04/20 [Cholecalciferol] 400 UNIT TAB No Conflict Check, 400 UNIT PO DAILY for 30 Days, #120 TAB 0 Refills Prov:NAI CRUZ NP 04/04/20 Ascorbic Acid (ASCORBIC ACID) 500 Mg Tablet, 1000 MG PO BID for 30 Days, #120 TAB 0 Refills Prov:NAI CRUZ NP 04/04/20 Albuterol Sulfate (VENTOLIN HFA) 18 Gm Hfa.aer.ad, 0 GM INH RQ4H PRN for SHORTNESS OF BREATH for 30 Days, #2 INH 0 Refills Prov:NAI CRUZ ECHOCARDIOGRAPHY TECHNOLOGIST 04/04/20 Acetaminophen (ACETAMINOPHEN) 325 Mg Tablet, 650 MG PO Q6H PRN for Mild Pain (1- 3) or Fever>100.8 for 30 Days, #60 TAB 0 Refills Prov:NAI CRUZ ECHOCARDIOGRAPHY TECHNOLOGIST 04/04/20 Reported Medications Lisinopril (LISINOPRIL) 2.5 Mg Tablet, 2.5 MG PO DAILY, #30 TAB 04/18/19 Nph, Human Insulin Isophane (NOVOLIN N) 100 Unit/1 Ml Vial, 52 UNITS SQ HS 04/17/19 Amlodipine Besylate (AMLODIPINE BESYLATE) 2.5 Mg Tablet, 2.5 MG PO DAILY 04/17/19 Rosuvastatin Calcium (CRESTOR) 40 Mg Tablet, 40 MG PO HS 04/17/19 Sertraline Hcl (SERTRALINE HCL) 25 Mg Tablet, 25 MG PO DAILY 04/17/19 Gabapentin (GABAPENTIN) 600 Mg Tablet, 600 MG PO BID 04/17/19 Metoprolol Succinate (METOPROLOL SUCCINATE) 50 Mg Tab.er.24h, 50 MG PO BID, MG 09/12/16 Insulin Human Isophan/Regular (NOVOLIN 70-30 100 UNIT/ML VIAL) 100 Units/Ml Ml, 68 UNITS SQ DAILY 09/12/16 Furosemide (FUROSEMIDE) 40 Mg Tablet, 40 MG PO Daily, #30 TAB 09/12/16 Isosorbide Mononitrate (ISOSORBIDE MONONITRATE ER) 120 Mg Tab.er.24h, 120 MG PO DAILY 09/12/16 Aspirin (ASPIR 81) 81 Mg Tablet.dr, 81 MG PO DAILY 11/13/15 Glimepiride (GLIMEPIRIDE) 2 Mg Tablet, 4 MG PO DAILY, TAB 11/13/15 Nitroglycerin (NITROGLYCERIN) 0.4 Mg Tab.subl, 0.4 MG SL PRN CHEST PAIN 02/20/13 Clopidogrel Bisulfate* (PLAVIX) 75 Mg Tablet, 75 MG PO DAILY 02/20/13 Medications in the ED Aspirin 81 mg PRN ONCE PO Last administered on 07/14/20at 11:27; Admin Dose 81 MG; Start 07/14/20 at 11:00; Stop 07/14/20 at 11:13; Status DC LINDY BRANDON DO Jul 14, 2020 11:53
--- NOTE | 2020-07-14 12:00 | Diagnostic Imaging Report ---
TECHNIQUE: Frontal view of the chest. INDICATION: ^Y ^cp ^[id number] ^[id number] COMPARISON: 04/02/2020 DISCUSSION: Limited evaluation due to portable technique. Lines and hardware: Overlying EKG leads are noted. Midline sternotomy changes are noted. Heart and mediastinum: Stable. Lungs and pleura: No focal airspace consolidation. No pleural effusion. No pneumothorax. Previously identified patchy bilateral airspace opacities have resolved. Soft tissues and bones: No acute abnormality. IMPRESSION: Negative for acute intrathoracic process. Signed by: Bronson Gaitan MD on 07/14/2020 11:57 AM
--- NOTE | 2020-07-14 14:00 | NUR ---
RCD PT FROM ER BY BED PT IS ALERT AND ORIENTED VITALS CHECKED PT RESTING ON BED IV PATENT ADMISSION ASSESSMENT AN HISTORY DONE PT DENIED ANY KIND OF PAIN FAMILY AT BED SIDE INSTRUCTED THE PT AND FAMILY REGARDING HOSPITAL POLICY AND ROUTINE BED LOW AND LOCKED CALL LIGHT IN REACH
[2020-07-14 14:39] VITALS: BP 153/62
[2020-07-14 14:40] VITALS: BP 153/62
[2020-07-14 14:44] VITALS: BP 153/62
[2020-07-14] MEDS ORDERED: INFLUENZA VIRUS VAC SPLIT INJ 0.5 ML SYR IM ONE (16:00)
--- NOTE | 2020-07-14 16:00 | NUR ---
VERIFIED THE HOME MEDS WITH HIS DAUGHTER AND NOTIFIED DR HARRIS GOT THE ORDER TO RENEW MEDS
[2020-07-14] MEDS ORDERED: NITROGLYCERIN 0.4 MG SUBL SL PRN (16:30)
[2020-07-14] MEDS ORDERED: INSULIN REGULAR, HUMAN 100 UNIT/1 ML 3ML VIAL SQ SCH (16:30)
[2020-07-14] MEDS ORDERED: DEXTROSE 50% SYRINGE 50 ML IV PRN ×2 (16:30→17:30)
[2020-07-14] MEDS ORDERED: ALBUTEROL SULFATE HFA 8GM INHALATION AEROSOL INH PRN (16:30)
[2020-07-14] MEDS ORDERED: ACETAMINOPHEN 325 MG TAB PO PRN (16:30)
[2020-07-14] MEDS: ASCORBIC ACID 500 MG TAB PO SCH (17:00)
[2020-07-14] MEDS: ZINC SULFATE 220 MG CAP PO SCH (17:00)
[2020-07-14] MEDS: GABAPENTIN 300 MG CAP PO SCH (17:00)
[2020-07-14] MEDS ORDERED: APIXAB 2.5 MG TABLET PO SCH (17:00)
[2020-07-14] MEDS: METOPROLOL SUCCINATE 50 MG TAB XL PO SCH (17:00)
[2020-07-14] MEDS ORDERED: NON-FORMULARY MEDICATION (Gabapentin 600 MG) PO SCH (17:00)
--- NOTE | 2020-07-14 17:32 | Consultation ---
DATE OF CONSULTATION: Cardiology Consultation REASON FOR CONSULTATION: Chest pain. HISTORY OF PRESENT ILLNESS: This is a 75-year-old man with a history of hypertension, hyperlipidemia, paroxysmal atrial fibrillation, coronary artery disease status post coronary artery bypass graft surgery and percutaneous coronary intervention, who presented to the emergency department with chest pain. The patient states that he has had no recent testing or cardiac catheterization with his primary digital circuit designer. The patient is a poor historian, cannot provide me exact details of his past medical history or his digital circuit designer. The patient states that he has had chest pain for the last 4 to 5 days that had been progressively worsening, [id number] in severity, centrally located, without radiation, occurred at rest, relieved with nitroglycerin, no other exacerbating or relieving factors. Left heart catheterization showed patent left internal mammary graft to the LAD with moderate diffuse disease in the LAD with severe disease in the ramus intermedius, left circumflex, and right coronary arteries with occluded vein grafts. REVIEW OF SYSTEMS: A 12-point review of system was conducted, is negative except as stated above in the HPI. PAST MEDICAL HISTORY: As stated above in the HPI. PAST SURGICAL HISTORY: As stated above in the HPI. PAST FAMILY HISTORY: Noncontributory to current illness. SOCIAL HISTORY: No illicit drug, alcohol, or tobacco use. ALLERGIES: NO KNOWN DRUG ALLERGIES. MEDICATIONS: See medication reconciliation form. PHYSICAL EXAMINATION: VITAL SIGNS: Temperature is 98.1, heart rate 64, respirations 18, blood pressure is 153/62, oxygen saturation 98% on room. GENERAL: Well appearing, well built, no apparent distress. Alert and oriented x3. HEAD: Normocephalic and atraumatic. Eyes, the extraocular muscles are intact. Conjunctivae are clear. NECK: No JVD. No bruits. CARDIOVASCULAR: Regular rate and rhythm. LUNGS: Clear to auscultation. ABDOMEN: Soft, nontender, nondistended. EXTREMITIES: No clubbing, cyanosis, or edema. VASCULAR: 2+ pulses. SKIN: Warm, dry, intact. NEUROLOGIC: No focal deficits noted. Cranial nerves grossly intact. PSYCHIATRIC: Normal mood and affect. LABORATORY DATA: Reviewed. Notable for creatinine of 0.88. Troponin is 0.08. A 12-lead electrocardiogram showed normal sinus rhythm with right bundle-branch block, nonspecific ST-T wave abnormalities. Chest x-ray shows no acute cardiopulmonary abnormality. Cardiac catheterization on April 18, 2019 showed left main, LAD, ramus intermedius, left circumflex, and RCA stenosis. Both vein grafts are occluded to the PDA and OM. The left internal mammary graft is patent to the LAD with diffuse moderate disease in the LAD. The right coronary artery has stents with [id number] in-stent restenosis. IMPRESSION: 1. Chest pain. 2. Coronary artery disease status post coronary artery bypass graft surgery and percutaneous coronary intervention. 3. Aortic stenosis. 4. Paroxysmal atrial fibrillation. 5. Hypertension. 6. Hyperlipidemia. 7. Diabetes mellitus. RECOMMENDATIONS: Continue to rule out for acute myocardial infarction with serial troponin values. Resume home cardiovascular medications consisting of Eliquis, aspirin Plavix, statin, Lasix, isosorbide, lisinopril, metoprolol, Crestor. We will start Ranexa if chest pain continues. The patient likely is not a candidate for revascularization at this point in time. Maximize medical therapy. Repeat echocardiogram. We will continue to follow along with you. Marcus Knapp DO BM/MODL /[id number]
[2020-07-14] MEDS ORDERED: CHOLESTYRAMINE 4 GM PACKET PO SCH (18:00)
--- NOTE | 2020-07-14 19:07 | Consultation ---
DATE OF CONSULTATION: Pulmonary Consultation Patient of Dr. Valdez Reddy and Dr. Mora. HISTORY OF PRESENT ILLNESS: Charming but unfortunate 75-year-old gentleman admitted with chest pain occurring over the last four days, unrelieved by nitroglycerin, radiating from chest to back. History of COVID infections in March of this year. History of hyperlipidemia, cerebral palsy with right-sided weakness and peripheral neuropathy. He has had coronary bypass surgery, appendectomy, pilonidal cyst surgery, coronary stents placed. FAMILY HISTORY: Positive for diabetes and hypertension. Born in [place], [place]. Worked for the [employer] [employer] ALLERGIES: HE HAS NO KNOWN ALLERGIES. HOME MEDICATIONS: 1. Amaryl 4 mg a day. 2. Tylenol. 3. Ventolin p.r.n. 4. Amlodipine. 5. Apixaban. 6. Aspirin. 7. Plavix. 8. Lasix. 9. Gabapentin. 10. 70/30 NPH insulin. 11. ISMO. 12. Lisinopril. 13. Metoprolol. 14. Crestor. 15. Sertraline. PHYSICAL EXAMINATION: GENERAL: Jovial white male, in no acute distress, complaining of chest pain. This resolved and dyspnea. VITAL SIGNS: Temperature 98, pulse 69 and regular, respirations 18, blood pressure 153/80. HEAD: Normocephalic atraumatic. EYES: Extraocular movements intact. LUNGS: Clear. HEART: Regular rhythm. ABDOMEN: Nontender. EXTREMITIES: Nonedematous. There is muscle weakness to the right arm and leg. IMPRESSION: Unstable angina, heart failure, insulin-dependent diabetes, hyperlipidemia. Continue home medications. We will request Cardiology and Endocrinology's opinion. Allen Chavis MD DS/MODL /[id number]
--- NOTE | 2020-07-14 19:10 | NUR ---
PT RESTING ON BED BED SIDE REPORT GIVEN TO ONCOMING NURSE
[2020-07-14 20:00] VITALS: BP 123/99
[2020-07-14] MEDS: CRESTOR 10MG PO SCH (20:58)
[2020-07-14] MEDS: INSULIN LISPRO 100 UNIT/1 ML 3ML VIAL SQ SCH (20:59)
[2020-07-14 21:00] VITALS: BP 123/99
[2020-07-14] MEDS ORDERED: NPH, HUMAN INSULIN ISOPHANE 100 UNIT/1 ML 3ML VIAL SQ SCH ×2 (21:00)
[2020-07-14] MEDS ORDERED: NON-FORMULARY MEDICATION (Rosuvastatin Calcium (Crestor) 40 MG) PO SCH (21:00)
[2020-07-14 21:09] LABS: CREATINE KINASE MB 1.6 ng/mL (0-5.0)
[2020-07-15] VITALS (7 sets, daily range): BP systolic 126–150; BP diastolic 50–89
[2020-07-15 05:20] LABS: BASOPHILS % 0.6 % (0.0-1.0); EOSINOPHILS # (AUTO) 0.2 (0.0-0.4); EOSINOPHILS % 3.1 % (0.0-6.0); HEMATOCRIT 40.8 % (38.2-49.6); HEMOGLOBIN 13.2 g/dL (14.0-18.0); LYMPHOCYTES # (AUTO) 2.1 (1.0-3.2); LYMPHOCYTES % 30.4 % (18.0-39.1); MEAN CORPUSCULAR HEMOGLOBIN 29.4 pg (28-32); MEAN CORPUSCULAR HGB CONC 32.4 g/dL (31-35); MEAN CORPUSCULAR VOLUME 90.9 fL (81-99); MONOCYTES # (AUTO) 0.6 (0.2-0.8); MONOCYTES % 8.1 % (4.4-11.3); NEUTROPHILS # (AUTO) 3.9 (2.1-6.9); NEUTROPHILS % 57.5 % (38.7-80.0); PLATELET COUNT 142 x10e3/uL (140-360); RED BLOOD COUNT 4.49 x10e6/uL (4.3-5.7); RED CELL DISTRIBUTION WIDTH 13.7 % (11.7-14.4)
[2020-07-15 05:34] LABS: ANION GAP 14.8 mmol/L (8-16); BLOOD UREA NITROGEN 15 mg/dL (7-26); BUN/CREATININE RATIO 18 (6-25); CARBON DIOXIDE 28 mmol/L (22-29); CHLORIDE 108 mmol/L (98-107); CREATININE, SERUM 0.83 mg/dL (0.72-1.25); EST GLOMERULAR FILTRATION RATE > 60 ML/MIN (60-); GLUCOSE 106 mg/dL (74-118); POTASSIUM 4.8 mmol/L (3.5-5.1); SODIUM 146 mmol/L (136-145)
[2020-07-15 06:13] LABS: CHOL/HDL RATIO 3.6 (3.9-4.7)
[2020-07-15 06:28] LABS: CREATINE KINASE MB 1.3 ng/mL (0-5.0)
[2020-07-15] MEDS: INSULIN LISPRO 100 UNIT/1 ML 3ML VIAL SQ SCH ×5 (07:30→21:37)
[2020-07-15] MEDS ORDERED: HUMULIN 70/30 VIAL SQ SCH ×2 (07:30)
[2020-07-15] MEDS ORDERED: NON-FORMULARY MEDICATION (Sertraline Hcl 25 MG) PO SCH (09:00)
[2020-07-15] MEDS ORDERED: LISINOPRIL 2.5 MG TAB PO SCH (09:00)
[2020-07-15] MEDS ORDERED: ISOSORBIDE MONONITRATE 120 MG PO SCH (09:00)
[2020-07-15] MEDS ORDERED: NON-FORMULARY MEDICATION (Amlodipine Besylate 2.5 MG) PO SCH (09:00)
[2020-07-15] MEDS: AMLODIPINE BESYLATE 5 MG TAB PO SCH (09:12)
[2020-07-15] MEDS: ISOSORBIDE MONONITRATE 30 MG TAB CR PO SCH (09:12)
[2020-07-15] MEDS: METOPROLOL SUCCINATE 50 MG TAB XL PO SCH ×2 (09:12→17:58)
[2020-07-15] MEDS: GABAPENTIN 300 MG CAP PO SCH ×2 (09:44→17:58)
[2020-07-15] MEDS: FUROSEMIDE 40 MG TAB PO SCH (09:44)
[2020-07-15] MEDS: CLOPIDOGREL BISULFATE 75 MG TAB PO SCH (09:44)
[2020-07-15] MEDS: ASPIRIN 81 MG CHEW TAB PO SCH (09:44)
[2020-07-15] MEDS: ZINC SULFATE 220 MG CAP PO SCH ×2 (09:44→17:58)
[2020-07-15] MEDS: ASCORBIC ACID 500 MG TAB PO SCH ×2 (09:44→17:58)
[2020-07-15] MEDS: SERTRALINE HCL 50 MG TAB PO SCH (09:45)
--- NOTE | 2020-07-15 10:13 | NUR ---
DAY 1 OBS. CHEST PAIN. SENT TO R1 FOR LOC DETERMINATION.
--- NOTE | 2020-07-15 13:29 | NUR ---
R1 LOC DETERMINATION: [facility] case account ending in [id number] has been reviewed and completed by [facility] Physicians. Service Line: Level of Care (LOC) / Admission Status Review Initial patient type was submitted as: IO - Initial Observation PAS Recommendation: OU
--- NOTE | 2020-07-15 13:33 | NUR ---
patient up in chair, walked with PT earlier, not in any distress, call light in reach
--- NOTE | 2020-07-15 15:12 | History and Physical ---
REPORT TITLE: Endocrine Consultation BODY AFTER REPORT TITLE: SOURCE OF CONSULTATION: The patient of Dr. Chavis. Thank you very much for referring this patient. HISTORY OF PRESENT ILLNESS: This is a 75-year-old gentleman, who is referred to me for evaluation of uncontrolled diabetes mellitus. The patient reportedly is a known diabetic for almost 15 years and takes 70/30 insulin 40 units in the morning and 45 units at nighttime. The patient has history of chest pain, has long-standing history of coronary artery disease, status post CABG and status post multiple coronary stents. He has history of congestive cardiac failure, hypertension, hyperlipidemia, and severe diabetic sensory neuropathy. PHYSICAL EXAMINATION: GENERAL: Today, the patient is alert, awake, and little bit apprehensive. VITAL SIGNS: Heart rate is around 78, blood pressure 146/86 mmHg. HEENT: Essentially unremarkable. Thyroid is palpable. Clinically, he is near euthyroid. CHEST: Bilateral vesicular breathing. No rales heard. CARDIOVASCULAR: First and second heart sounds. There is no third or fourth heart sound. Ejection systolic murmur of grade 2/6. EXTREMITIES: The patient has evidence of diabetic sensorimotor neuropathy in both lower extremities and decreased peripheral pulses, both dorsalis pedis and posterior tibial. LABORATORY DATA: At the time of admissionhis blood sugars were 253-269. CLINICAL IMPRESSION: Diabetes mellitus type 2, uncontrolled with complications, chest pain, coronary artery disease status post CABG, status post multiple coronary stents, congestive cardiac failure, hypertension. PLAN: The treatment options were discussed with the patient including getting on to Lantus and Humalog insulin. Monitor his blood sugars closely and adjust insulin dose. Thanks again for referring this patient. I will be following this patient with you. MD FABIENNE Grover/MODL /[id number]
--- NOTE | 2020-07-15 16:50 | NUR ---
Patient was evaluated for PT services. Ambulated w/o AD ~200 ft x 2 bouts with mild unsteadiness due to right LE weakness from cerebral palsy. Pt declined to use a SPC at this time. Safe to ambulate with nursing supervision. D/C PT services. Addendum: 07/15/20 at 1653 by Sj Dodd PT Amended: Links added.
--- NOTE | 2020-07-15 19:12 | Progress Note ---
DATE: Cardiology Progress Note SUBJECTIVE: The patient is feeling better. Denies any chest pain or shortness of breath. OBJECTIVE: VITAL SIGNS: Temperature is 98, heart rate 61, respirations are 19, blood pressure is 126/50, oxygen saturation 100% on room air. GENERAL: Well appearing, in no apparent distress. CARDIOVASCULAR: Regular rate and rhythm. LUNGS: Clear to auscultation. ABDOMEN: Soft, nontender, nondistended. EXTREMITIES: No clubbing, cyanosis or edema. VASCULAR: 2+ pulses. SKIN: Warm, dry, and intact. NEUROLOGIC: No focal deficits noted. CARDIOVASCULAR MEDICATIONS: Reviewed. LABORATORY DATA: Reviewed. Troponin negative x3. Echocardiogram showed left ventricular ejection fraction of 35% to 40% with moderate aortic stenosis. IMPRESSION: 1. Precordial pain. 2. Coronary artery disease, status post coronary artery bypass graft surgery and percutaneous coronary intervention. 3. Moderate aortic stenosis. 4. Paroxysmal atrial fibrillation. 5. Hypertension. 6. Hyperlipidemia. 7. Diabetes mellitus. RECOMMENDATIONS: The patient is ruled out for acute myocardial infarction. Continue current cardiovascular medications. Add lisinopril given the systolic congestive heart failure. Start Ranexa to help with chest pain. The patient had cardiac catheterization in 2019. He was not a candidate for revascularization due to severe diffuse disease. We will maximize medical therapy. We will continue to follow along with you. DO KENNEDY Dunaway/MODL /[id number]
[2020-07-15] MEDS ORDERED: INSULIN GLARGINE 100 UNITS/ML VIAL SQ SCH (21:00)
[2020-07-15] MEDS: CRESTOR 10MG PO SCH (21:16)
[2020-07-16 00:20] VITALS: BP 116/57
[2020-07-16 05:18] VITALS: BP 135/60
[2020-07-16] MEDS: INSULIN LISPRO 100 UNIT/1 ML 3ML VIAL SQ SCH ×6 (07:30→17:26)
--- NOTE | 2020-07-16 07:30 | NUR ---
received pt from previous shift, pt up in chair, no c/o chest pain at time
[2020-07-16 08:20] VITALS: BP 138/62
[2020-07-16 08:22] VITALS: BP 138/62
[2020-07-16] MEDS: ASPIRIN 81 MG CHEW TAB PO SCH (08:48)
[2020-07-16] MEDS: ISOSORBIDE MONONITRATE 30 MG TAB CR PO SCH (08:50)
[2020-07-16] MEDS: AMLODIPINE BESYLATE 5 MG TAB PO SCH (08:50)
[2020-07-16] MEDS: FUROSEMIDE 40 MG TAB PO SCH (08:50)
[2020-07-16] MEDS: GABAPENTIN 300 MG CAP PO SCH ×2 (08:50→17:23)
[2020-07-16] MEDS: RANOLAZINE 500 MG TABSR PO SCH ×2 (08:51→17:24)
[2020-07-16] MEDS: CLOPIDOGREL BISULFATE 75 MG TAB PO SCH (08:51)
[2020-07-16] MEDS: SERTRALINE HCL 50 MG TAB PO SCH (08:52)
[2020-07-16] MEDS: ASCORBIC ACID 500 MG TAB PO SCH ×2 (08:52→17:25)
[2020-07-16] MEDS: ZINC SULFATE 220 MG CAP PO SCH ×2 (08:52→17:25)
[2020-07-16] MEDS: METOPROLOL SUCCINATE 50 MG TAB XL PO SCH ×2 (08:52→17:24)
[2020-07-16] MEDS ORDERED: LISINOPRIL 10 MG TAB PO SCH (09:00)
[2020-07-16 11:57] VITALS: BP 97/50
--- NOTE | 2020-07-16 12:09 | NUR ---
dr bowles to see pt
--- NOTE | 2020-07-16 13:08 | NUR ---
dr bowles asks to call dr gauthier to apporve dc. dr cam covering . dr cam states she wants to see pt and then decide on dc. dr bowles states to call him with dr cam decision
--- NOTE | 2020-07-16 13:46 | Discharge Summary ---
FINAL DIAGNOSES: 1. Chest pain. 2. Coronary artery disease, diffuse disease. No intervention treatment is recommended. 3. Hypertension. 4. Diabetes. ADMISSION HISTORY AND HOSPITAL COURSE: Mr. Childs is a 75-year-old male admitted for chest pain unrelieved by nitroglycerin, radiating to the back, history of COVID infection in March. Cardiology was consulted. The patient did not have any cardiac catheterization. Echocardiogram showed EF of 35% to 40% with moderate . Dr. Knapp recommended that the patient is not a candidate for revascularization due to severe diffuse disease and the patient will be discharged home if okay with Cardiology. I have given the prescription of Ranexa, which is apparently a new medicine that was started by Cardiology. 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 MD CRISSY Johnson/RUDY /[id number] cc: Justine Ya DO
--- NOTE | 2020-07-16 16:25 | NUR ---
pt ambulated with nurse down hallway. o2 sat remained 98-100 on room air, chest pain rated 1-2. dr bowles and dr macais notified. pt able to be dc as long as o2 sat does not drop during ambulation
[2020-07-16 16:32] VITALS: BP 100/51
--- NOTE | 2020-07-16 17:02 | NUR ---
dr macias notified pt ambulated down [place] with o2 sat 98-[address] macias ok to dc pt home.
--- NOTE | 2020-07-16 17:18 | NUR ---
dr botello to see pt. ok from dr botello for pt to go home.
--- NOTE | 2020-07-16 20:02 | Progress Note ---
DATE: 07/16/2020 Cardiology Progress Note SUBJECTIVE: The patient denies chest pain or shortness of breath. OBJECTIVE: VITAL SIGNS: Temperature 97.5 degrees, pulse 58, respiratory rate 20, blood pressure 97/50, oxygen saturation 98% on room air. GENERAL: Elderly man, in no acute distress. Awake and alert. LUNGS: Clear to auscultation bilaterally. No wheezes or crackles. CARDIOVASCULAR: Normal rate, regular rhythm. No murmur. Normal S1 and S2. ABDOMEN: Soft, nontender. EXTREMITIES: No edema. CARDIAC MEDICATIONS: Ranolazine 500 mg p.o. b.i.d., metoprolol succinate 50 mg p.o. b.i.d., lisinopril 5 mg p.o. daily, Plavix 75 mg p.o. daily, isosorbide mononitrate 120 mg p.o. daily, amlodipine 2.5 mg p.o. daily, Lasix 40 mg p.o. daily, aspirin 81 mg p.o. daily, rosuvastatin 40 mg p.o. at bedtime. LABORATORY DATA: None today. IMPRESSION: 1. Chest pain. 2. Coronary artery disease, status post coronary artery bypass surgery and percutaneous coronary intervention. 3. Moderate aortic stenosis. 4. Hypertension. 5. Hyperlipidemia. 6. Diabetes mellitus. RECOMMENDATIONS: The patient ruled out for myocardial infarction. The patient had a cardiac catheterization in March of 2019. He was not a candidate for revascularization due to severe diffuse disease. We will maximize antianginal therapy. Continue current cardiac medications. Unable to further increase beta-blockers, calcium channel blockers, or nitrates due to hypotension. Ranexa was just started. We will assess response. May need further increase. He is on optimal medical therapy for his heart failure. No further cardiac evaluation is indicated at this time. He was instructed to follow up closely with his outpatient nitro man on discharge. He expressed understanding and states in agreement with the plan of care. Thank you for this consult. We will continue to follow. Linette Rawls MD ABS/MODL /[id number]
== END 2020-07-16 18:15 | disposition home or self-care (01) ==
LOC: ER 11:33 → ERHOLD 11:34 → MED/SURG2 14:00
PROVIDERS: ADMIT Internal Medicine; ATTEND Internal Medicine
DX: I25.110 Atherosclerotic heart disease of native coronary artery with unstable angina pectoris (principal); E11.65 Type 2 diabetes mellitus with hyperglycemia; Z95.1 Presence of aortocoronary bypass graft; Z95.5 Presence of coronary angioplasty implant and graft; E78.5 Hyperlipidemia, unspecified; E11.40 Type 2 diabetes mellitus with diabetic neuropathy, unspecified; I35.0 Nonrheumatic aortic (valve) stenosis; I48.0 Paroxysmal atrial fibrillation; Z79.01 Long term (current) use of anticoagulants; Z86.19 Personal history of other infectious and parasitic diseases; Z11.59 Encounter for screening for other viral diseases
CPT/HCPCS: 36415 ×3; 71045; 80048; 80053; 80061; 82550 ×2; 82553 ×2; 82948 ×3; 83036; 84439; 84481; 84484 ×2; 85025 ×2; 93005; 93306; 96372; 97116; 97162; 99284; G0378 ×3; J1815; U0002

== ENCOUNTER → 2020-09-12 | Day surgery (SDC) | payer MEDICARE ==
[2020-09-08 09:38] LABS: BASOPHILS % 0.7 % (0.0-1.0); EOSINOPHILS # (AUTO) 0.2 (0.0-0.4); EOSINOPHILS % 3.6 % (0.0-6.0); HEMATOCRIT 40.5 % (38.2-49.6); HEMOGLOBIN 12.8 g/dL (14.0-18.0); LYMPHOCYTES # (AUTO) 1.9 (1.0-3.2); MEAN CORPUSCULAR HEMOGLOBIN 29.1 pg (28-32); MEAN CORPUSCULAR HGB CONC 31.6 g/dL (31-35); MONOCYTES # (AUTO) 0.5 (0.2-0.8); MONOCYTES % 8.4 % (4.4-11.3); NEUTROPHILS # (AUTO) 3.2 (2.1-6.9); NEUTROPHILS % 55.1 % (38.7-80.0); PLATELET COUNT 128 x10e3/uL (140-360); RED CELL DISTRIBUTION WIDTH 13.8 % (11.7-14.4)
[2020-09-08 09:55] LABS: ALANINE AMINOTRANSFERASE 14 IU/L (0-55); ALBUMIN 3.8 g/dL (3.5-5.0); ALBUMIN/GLOBULIN RATIO 1.2 (0.8-2.0); ALKALINE PHOSPHATASE 67 IU/L (40-150); ANION GAP 12.3 mmol/L (8-16); BLOOD UREA NITROGEN 17 mg/dL (7-26); BUN/CREATININE RATIO 18 (6-25); CALCIUM 9.2 mg/dL (8.4-10.2); CARBON DIOXIDE 30 mmol/L (22-29); CHLORIDE 104 mmol/L (98-107); CREATININE, SERUM 0.95 mg/dL (0.72-1.25); EST GLOMERULAR FILTRATION RATE > 60 ML/MIN (60-); GLUCOSE 234 mg/dL (74-118); POTASSIUM 5.3 mmol/L (3.5-5.1); SODIUM 141 mmol/L (136-145)
[2020-09-12] VITALS (9 sets, daily range): BP systolic 114–163; BP diastolic 47–78
[~2020-09-12] VITALS: Ht 167.6 cm; Wt 101.2 kg
[~2020-09-12] MED LIST changes: +ALPRAZOLAM 0.5 MG TAB ONE; +DIPHENHYDRAMINE HCL 25 MG CAP ONE; +FENTANYL CITRATE/PF 100MCG/2 ML INJ ONE; +GABAPENTIN800 MG PO; +HEPARIN SOD/SOD CHLORIDE 2,000 ML ONE; +IOPAMIDOL 370 MG/ML 200 ML INFUS..BTL INJ ONE; +LASIX20 MG PO; +LIDOCAINE HCL 2% LOCAL 20 ML VIAL ONE; +METFORMIN HCL500 M2 PO; +MIDAZOLAM HCL 2 MG/2 ML VIAL ONE; +PIOGLITAZONE HC45 MG PO; +SODIUM CHLORIDE 0.9% 1000ML 1,000 ML ONE
== END | disposition home or self-care (01) ==
LOC: CATH LAB 11:08
PROVIDERS: ATTEND Internal Medicine Interventional Cardiology
DX: I25.119 Atherosclerotic heart disease of native coronary artery with unspecified angina pectoris (principal); Z01.812 Encounter for preprocedural laboratory examination; Z20.828 Contact with and (suspected) exposure to other viral communicable diseases
CPT/HCPCS: 36415 ×2; 76937 ×2; 80053; 82948; 85025; 93455; C1769; J2001; J2250; J3010; J7030; Q9967; U0002; 99152

== ENCOUNTER 2021-03-22 19:00 | Emergency (ER) | payer MEDICARE ==
[~2021-03-22] VITALS: Ht 167.6 cm; Wt 101.2 kg
[~2021-03-22 19:00] MED LIST changes: -ALPRAZOLAM 0.5 MG TAB ONE; -DIPHENHYDRAMINE HCL 25 MG CAP ONE; -FENTANYL CITRATE/PF 100MCG/2 ML INJ ONE; -HEPARIN SOD/SOD CHLORIDE 2,000 ML ONE; -IOPAMIDOL 370 MG/ML 200 ML INFUS..BTL INJ ONE; -LIDOCAINE HCL 2% LOCAL 20 ML VIAL ONE; -MIDAZOLAM HCL 2 MG/2 ML VIAL ONE; -SODIUM CHLORIDE 0.9% 1000ML 1,000 ML ONE
== END 2021-03-22 19:29 | disposition home or self-care (01) ==
LOC: ER 19:21
DX: M54.41 Lumbago with sciatica, right side (principal); I10 Essential (primary) hypertension; E11.9 Type 2 diabetes mellitus without complications; E78.5 Hyperlipidemia, unspecified; E11.40 Type 2 diabetes mellitus with diabetic neuropathy, unspecified; Z95.1 Presence of aortocoronary bypass graft; Z95.5 Presence of coronary angioplasty implant and graft
CPT/HCPCS: 99282

== ENCOUNTER 2021-04-25 14:44 | Emergency (ER) | payer MEDICARE ==
[~2021-04-25] VITALS: Ht 167.6 cm; Wt 101.2 kg
[2021-04-25] MEDS ORDERED: PROAIR RESPICL90 MCG IH (17:15)
[2021-04-25] MEDS ORDERED: TESSALON PERLE100 MG PO (17:15)
== END 2021-04-25 18:14 | disposition home or self-care (01) ==
LOC: ER 15:00
DX: R05 Cough (principal); J06.9 Acute upper respiratory infection, unspecified; I10 Essential (primary) hypertension; E11.9 Type 2 diabetes mellitus without complications; E78.5 Hyperlipidemia, unspecified; N18.9 Chronic kidney disease, unspecified; G80.9 Cerebral palsy, unspecified; Z20.822 Contact with and (suspected) exposure to COVID-19; Z95.1 Presence of aortocoronary bypass graft
CPT/HCPCS: 71045; 99283; U0002

== ENCOUNTER 2024-06-08 15:39 | Emergency (ER) | payer MEDICARE ==
[~2024-06-08] VITALS: Ht 165.1 cm; Wt 89.4 kg
[~2024-06-08 15:39] MED LIST changes: +PROAIR RESPICL90 MCG IH; +TESSALON PERLE100 MG PO
[2024-06-08] MEDS ORDERED: OZEMPIC1 MG/0.71 (16:41)
[2024-06-08] MEDS ORDERED: JARDIANCE25 MG (16:41)
[2024-06-08] MEDS: BACITRACIN ZINC 0.9GM TP ONE (17:46)
[2024-06-08] MEDS ORDERED: MUPIROCIN22 GM TOP (17:55)
[2024-06-08 18:13] VITALS: PULSE 70; RESP 20; TEMP 98.5; O2SAT 94
== END 2024-06-08 18:20 | disposition home or self-care (01) ==
LOC: FSED 15:50
DX: S40.012A Contusion of left shoulder, initial encounter (principal); S50.02XA Contusion of left elbow, initial encounter; S20.211A Contusion of right front wall of thorax, initial encounter; S80.02XA Contusion of left knee, initial encounter; S90.31XA Contusion of right foot, initial encounter; R51.9 Headache, unspecified; W01.0XXA Fall on same level from slipping, tripping and stumbling without subsequent striking against object, initial encounter; Y92.89 Other specified places as the place of occurrence of the external cause; M50.30 Other cervical disc degeneration, unspecified cervical region; I70.90 Unspecified atherosclerosis; J98.4 Other disorders of lung; G30.9 Alzheimer's disease, unspecified; F02.80 Dementia in other diseases classified elsewhere, unspecified severity, without behavioral disturbance, psychotic disturbance, mood disturbance, and anxiety; I10 Essential (primary) hypertension; E11.9 Type 2 diabetes mellitus without complications; E78.5 Hyperlipidemia, unspecified; G62.9 Polyneuropathy, unspecified; G80.9 Cerebral palsy, unspecified; Z95.1 Presence of aortocoronary bypass graft; Z95.5 Presence of coronary angioplasty implant and graft
CPT/HCPCS: 70450; 71250; 72125; 99284